=== PATIENT | male | born 1950 | race Caucasian/White ===

== ENCOUNTER 2019-06-14 13:01 | Outpatient (RCR) | payer MEDICARE, SELFPAY ==
[2019-04-12 13:07] LABS: Basophils Absolute Auto 0.1 K/mm3 (0.0-0.1); Basophils Percent Auto 1.1 % (0.2-1.2); Eosinophils Absolute Auto 0.6 K/mm3 (0-0.3); Hematocrit 36.6 % (42.0-52.0); Hemoglobin 11.3 g/dL (14.0-18.0); Immature Granulocyte Absolute 0.03 K/mm3 (0.00-0.031); Immature Granulocyte Percent A 0.4 % (0-0.5); Lymphocytes Absolute Auto 0.84 K/mm3 (0.9-3.2); Lymphocytes Percent Auto 9.8 % (18.3-44.2); Mean Corpuscular HGB Conc 30.9 g/dl (32-36); Mean Corpuscular Volume 93.8 fl (80-100); Mean Platelet Volume 9.4 fl (7.4-10.4); Monocytes Absolute Auto 0.9 K/mm3 (0.1-0.6); Monocytes Percent Auto 10.9 % (2.6-8.5); Neutrophils Percent Auto 70.8 % (45.5-73.1); Platelet Count Result 277 k/mm3 (150-375); Red Cell Distribution Width 14.8 % (11.5-14.5); White Blood Count 8.5 K/mm3 (4.5-10.0)
[2019-04-12 13:20] LABS: Alanine Aminotransferase 16 U/L (4-50); Albumin Level 4.1 g/dL (3.5-5.1); Alkaline Phosphatase 100 U/L (38-126); Aspartate Amino Transferase 20 U/L (17-59); Bilirubin,Total 0.3 mg/dL (0.2-1.3); Blood Urea Nitrogen 24 mg/dL (9-20); Calcium 9.1 mg/dL (8.4-10.2); Carbon Dioxide 26 mmol/L (22-30); Chloride 103 mmol/L (98-107); Estimated Glomerular Filt Rate 60; Glucose 170 mg/dL (75-110); INR 1.7; Lactate Dehydrogenase 676 U/L (313-618); Potassium 5.1 mmol/L (3.4-5.0); Prothrombin Time 19.1 Seconds (11.1-14.7); Sodium 138 mmol/L (137-145)
[2019-05-02 11:39] LABS: Basophils Absolute Auto 0.1 K/mm3 (0.0-0.1); Basophils Percent Auto 1.4 % (0.2-1.2); Eosinophils Absolute Auto 0.5 K/mm3 (0-0.3); Eosinophils Percent Auto 6.6 % (0-4.4); Hematocrit 38.5 % (42.0-52.0); Hemoglobin 11.7 g/dL (14.0-18.0); Immature Granulocyte Absolute 0.03 K/mm3 (0.00-0.031); Immature Granulocyte Percent A 0.4 % (0-0.5); Lymphocytes Absolute Auto 0.75 K/mm3 (0.9-3.2); Lymphocytes Percent Auto 10.1 % (18.3-44.2); Mean Corpuscular HGB Conc 30.4 g/dl (32-36); Mean Corpuscular Hemoglobin 27.9 pg (26-34); Mean Corpuscular Volume 91.7 fl (80-100); Mean Platelet Volume 9.9 fl (7.4-10.4); Monocytes Absolute Auto 0.8 K/mm3 (0.1-0.6); Monocytes Percent Auto 10.4 % (2.6-8.5); Neutrophils Absolute Auto 5.3 K/mm3 (1.3-6.7); Neutrophils Percent Auto 71.1 % (45.5-73.1); Platelet Count Result 297 k/mm3 (150-375); Red Cell Distribution Width 14.4 % (11.5-14.5); White Blood Count 7.4 K/mm3 (4.5-10.0)
[2019-05-02 11:49] LABS: INR 2.9; Prothrombin Time 30.1 Seconds (11.1-14.7)
[2019-05-02 11:58] LABS: Alanine Aminotransferase 15 U/L (4-50); Albumin Level 4.3 g/dL (3.5-5.1); Alkaline Phosphatase 103 U/L (38-126); Aspartate Amino Transferase 19 U/L (17-59); Bilirubin,Total 0.2 mg/dL (0.2-1.3); Blood Urea Nitrogen 44 mg/dL (9-20); Calcium 9.1 mg/dL (8.4-10.2); Carbon Dioxide 25 mmol/L (22-30); Chloride 102 mmol/L (98-107); Estimated Glomerular Filt Rate 37; Glucose 171 mg/dL (75-110); Lactate Dehydrogenase 629 U/L (313-618); Potassium 4.5 mmol/L (3.4-5.0); Sodium 140 mmol/L (137-145)
[2019-05-16 09:44] LABS: Alanine Aminotransferase 16 U/L (4-50); Albumin Level 4.1 g/dL (3.5-5.1); Alkaline Phosphatase 106 U/L (38-126); Aspartate Amino Transferase 24 U/L (17-59); Bilirubin,Total 0.2 mg/dL (0.2-1.3); Blood Urea Nitrogen 24 mg/dL (9-20); Calcium 9.4 mg/dL (8.4-10.2); Carbon Dioxide 25 mmol/L (22-30); Chloride 102 mmol/L (98-107); Estimated Glomerular Filt Rate 50; Glucose 198 mg/dL (75-110); Lactate Dehydrogenase 620 U/L (313-618); Potassium 4.8 mmol/L (3.4-5.0); Sodium 140 mmol/L (137-145)
[2019-05-16 09:47] LABS: Basophils Absolute Auto 0.1 K/mm3 (0.0-0.1); Eosinophils Absolute Auto 0.5 K/mm3 (0-0.3); Eosinophils Percent Auto 6.6 % (0-4.4); Hematocrit 36.3 % (42.0-52.0); Hemoglobin 11.3 g/dL (14.0-18.0); Immature Granulocyte Absolute 0.04 K/mm3 (0.00-0.031); Immature Granulocyte Percent A 0.5 % (0-0.5); Lymphocytes Absolute Auto 0.76 K/mm3 (0.9-3.2); Lymphocytes Percent Auto 9.5 % (18.3-44.2); Mean Corpuscular HGB Conc 31.1 g/dl (32-36); Mean Corpuscular Hemoglobin 28.4 pg (26-34); Mean Corpuscular Volume 91.2 fl (80-100); Mean Platelet Volume 9.8 fl (7.4-10.4); Monocytes Absolute Auto 0.7 K/mm3 (0.1-0.6); Neutrophils Absolute Auto 5.8 K/mm3 (1.3-6.7); Neutrophils Percent Auto 73.4 % (45.5-73.1); Platelet Count Result 271 k/mm3 (150-375); Red Blood Count 3.98 M/mm3 (4.6-6.20); Red Cell Distribution Width 14.6 % (11.5-14.5)
[2019-05-16 09:58] LABS: INR 2.7; Prothrombin Time 28.2 Seconds (11.1-14.7)
[2019-06-14 13:32] LABS: Basophils Absolute Auto 0.1 K/mm3 (0.0-0.1); Basophils Percent Auto 0.9 % (0.2-1.2); Eosinophils Absolute Auto 0.6 K/mm3 (0-0.3); Eosinophils Percent Auto 6.3 % (0-4.4); Hematocrit 36.7 % (42.0-52.0); Hemoglobin 11.7 g/dL (14.0-18.0); Immature Granulocyte Absolute 0.08 K/mm3 (0.00-0.031); Immature Granulocyte Percent A 0.9 % (0-0.5); Lymphocytes Absolute Auto 1.05 K/mm3 (0.9-3.2); Lymphocytes Percent Auto 12.1 % (18.3-44.2); Mean Corpuscular HGB Conc 31.9 g/dl (32-36); Mean Corpuscular Hemoglobin 28.5 pg (26-34); Mean Corpuscular Volume 89.3 fl (80-100); Mean Platelet Volume 9.7 fl (7.4-10.4); Monocytes Absolute Auto 0.8 K/mm3 (0.1-0.6); Neutrophils Absolute Auto 6.1 K/mm3 (1.3-6.7); Neutrophils Percent Auto 70.8 % (45.5-73.1); Platelet Count Result 277 k/mm3 (150-375); Red Blood Count 4.11 M/mm3 (4.6-6.20); White Blood Count 8.7 K/mm3 (4.5-10.0)
[2019-06-14 13:49] LABS: Alanine Aminotransferase 20 U/L (4-50); Albumin Level 4.2 g/dL (3.5-5.1); Alkaline Phosphatase 112 U/L (38-126); Aspartate Amino Transferase 24 U/L (17-59); Bilirubin,Total 0.3 mg/dL (0.2-1.3); Blood Urea Nitrogen 26 mg/dL (9-20); Calcium 8.9 mg/dL (8.4-10.2); Carbon Dioxide 25 mmol/L (22-30); Chloride 97 mmol/L (98-107); Estimated Glomerular Filt Rate 60; Glucose 234 mg/dL (75-110); Lactate Dehydrogenase 651 U/L (313-618); Sodium 133 mmol/L (137-145)
[2019-06-14 14:22] LABS: INR 1.9; Prothrombin Time 21.5 Seconds (11.1-14.7)
== END 2019-07-11 23:59 | disposition home or self-care (01) ==
LOC: ANHLAB 13:01
DX: Z95.811 Presence of heart assist device (principal); T82.7XXA Infection and inflammatory reaction due to other cardiac and vascular devices, implants and grafts, initial encounter; I50.42 Chronic combined systolic (congestive) and diastolic (congestive) heart failure; Z79.01 Long term (current) use of anticoagulants
CPT/HCPCS: 36415; 80053; 83615; 85025; 85610

== ENCOUNTER 2019-10-08 11:23 | Outpatient (RCR) | payer MEDICARE, SELFPAY ==
[2019-07-16 11:03] LABS: Basophils Absolute Auto 0.1 K/mm3 (0.0-0.1); Basophils Percent Auto 1.1 % (0.2-1.2); Eosinophils Absolute Auto 0.5 K/mm3 (0-0.3); Eosinophils Percent Auto 6.9 % (0-4.4); Hematocrit 38.8 % (42.0-52.0); Immature Granulocyte Absolute 0.05 K/mm3 (0.00-0.031); Immature Granulocyte Percent A 0.6 % (0-0.5); Lymphocytes Percent Auto 8.9 % (18.3-44.2); Mean Corpuscular HGB Conc 30.9 g/dl (32-36); Mean Corpuscular Volume 90.4 fl (80-100); Mean Platelet Volume 9.7 fl (7.4-10.4); Monocytes Absolute Auto 0.7 K/mm3 (0.1-0.6); Monocytes Percent Auto 8.3 % (2.6-8.5); Neutrophils Absolute Auto 5.8 K/mm3 (1.3-6.7); Neutrophils Percent Auto 74.2 % (45.5-73.1); Platelet Count Result 284 k/mm3 (150-375); Red Blood Count 4.29 M/mm3 (4.6-6.20); Red Cell Distribution Width 15.6 % (11.5-14.5); White Blood Count 7.8 K/mm3 (4.5-10.0)
[2019-07-16 11:17] LABS: Alanine Aminotransferase 17 U/L (4-50); Albumin Level 4.4 g/dL (3.5-5.1); Alkaline Phosphatase 107 U/L (38-126); Aspartate Amino Transferase 21 U/L (17-59); Bilirubin,Total 0.3 mg/dL (0.2-1.3); Blood Urea Nitrogen 15 mg/dL (9-20); Calcium 9.2 mg/dL (8.4-10.2); Carbon Dioxide 27 mmol/L (22-30); Chloride 100 mmol/L (98-107); Estimated Glomerular Filt Rate 55; Glucose 94 mg/dL (75-110); Lactate Dehydrogenase 712 U/L (313-618); Potassium 4.7 mmol/L (3.4-5.0); Sodium 140 mmol/L (137-145)
[2019-07-16 11:18] LABS: INR 4.1; Prothrombin Time 39.2 Seconds (11.1-14.7)
[2019-07-23 10:13] LABS: Basophils Absolute Auto 0.1 K/mm3 (0.0-0.1); Basophils Percent Auto 1.2 % (0.2-1.2); Eosinophils Absolute Auto 0.6 K/mm3 (0-0.3); Eosinophils Percent Auto 7.7 % (0-4.4); Hematocrit 38.6 % (42.0-52.0); Hemoglobin 12.1 g/dL (14.0-18.0); Immature Granulocyte Absolute 0.05 K/mm3 (0.00-0.031); Immature Granulocyte Percent A 0.6 % (0-0.5); Lymphocytes Absolute Auto 0.83 K/mm3 (0.9-3.2); Lymphocytes Percent Auto 10.7 % (18.3-44.2); Mean Corpuscular HGB Conc 31.3 g/dl (32-36); Mean Corpuscular Hemoglobin 27.8 pg (26-34); Mean Corpuscular Volume 88.5 fl (80-100); Mean Platelet Volume 9.2 fl (7.4-10.4); Monocytes Absolute Auto 0.6 K/mm3 (0.1-0.6); Monocytes Percent Auto 7.3 % (2.6-8.5); Neutrophils Absolute Auto 5.6 K/mm3 (1.3-6.7); Neutrophils Percent Auto 72.5 % (45.5-73.1); Platelet Count Result 272 k/mm3 (150-375); Red Blood Count 4.36 M/mm3 (4.6-6.20); Red Cell Distribution Width 15.3 % (11.5-14.5); White Blood Count 7.8 K/mm3 (4.5-10.0)
[2019-07-23 10:21] LABS: INR 2.5; Prothrombin Time 26.9 Seconds (11.1-14.7)
[2019-07-23 10:38] LABS: Alanine Aminotransferase 15 U/L (4-50); Albumin Level 4.2 g/dL (3.5-5.1); Alkaline Phosphatase 98 U/L (38-126); Aspartate Amino Transferase 22 U/L (17-59); Bilirubin,Total 0.4 mg/dL (0.2-1.3); Blood Urea Nitrogen 16 mg/dL (9-20); Calcium 9.1 mg/dL (8.4-10.2); Carbon Dioxide 26 mmol/L (22-30); Chloride 101 mmol/L (98-107); Estimated Glomerular Filt Rate 55; Glucose 173 mg/dL (75-110); Potassium 4.8 mmol/L (3.4-5.0); Sodium 137 mmol/L (137-145)
[2019-07-23 10:49] LABS: Lactate Dehydrogenase 647 U/L (313-618)
[2019-08-13 12:31] LABS: Basophils Absolute Auto 0.1 K/mm3 (0.0-0.1); Basophils Percent Auto 1.5 % (0.2-1.2); Eosinophils Absolute Auto 0.7 K/mm3 (0-0.3); Eosinophils Percent Auto 9.4 % (0-4.4); Hematocrit 37.1 % (42.0-52.0); Hemoglobin 11.7 g/dL (14.0-18.0); Immature Granulocyte Absolute 0.05 K/mm3 (0.00-0.031); Immature Granulocyte Percent A 0.7 % (0-0.5); Lymphocytes Absolute Auto 0.79 K/mm3 (0.9-3.2); Lymphocytes Percent Auto 10.8 % (18.3-44.2); Mean Corpuscular HGB Conc 31.5 g/dl (32-36); Mean Corpuscular Hemoglobin 28.7 pg (26-34); Mean Corpuscular Volume 90.9 fl (80-100); Monocytes Absolute Auto 0.6 K/mm3 (0.1-0.6); Monocytes Percent Auto 7.9 % (2.6-8.5); Neutrophils Absolute Auto 5.1 K/mm3 (1.3-6.7); Neutrophils Percent Auto 69.7 % (45.5-73.1); Platelet Count Result 258 k/mm3 (150-375); Red Blood Count 4.08 M/mm3 (4.6-6.20); Red Cell Distribution Width 15.5 % (11.5-14.5); White Blood Count 7.3 K/mm3 (4.5-10.0)
[2019-08-13 12:43] LABS: Alanine Aminotransferase 17 U/L (4-50); Albumin Level 4.2 g/dL (3.5-5.1); Alkaline Phosphatase 99 U/L (38-126); Aspartate Amino Transferase 21 U/L (17-59); Bilirubin,Total 0.3 mg/dL (0.2-1.3); Blood Urea Nitrogen 28 mg/dL (9-20); Calcium 8.8 mg/dL (8.4-10.2); Carbon Dioxide 25 mmol/L (22-30); Chloride 102 mmol/L (98-107); Estimated Glomerular Filt Rate 50; Glucose 251 mg/dL (75-110); Sodium 138 mmol/L (137-145)
[2019-08-13 12:44] LABS: INR 2.6; Prothrombin Time 27.3 Seconds (11.1-14.7)
[2019-08-31 12:07] LABS: Basophils Absolute Auto 0.1 K/mm3 (0.0-0.1); Basophils Percent Auto 1.2 % (0.2-1.2); Eosinophils Absolute Auto 0.5 K/mm3 (0-0.3); Eosinophils Percent Auto 7.6 % (0-4.4); Hemoglobin 11.6 g/dL (14.0-18.0); Immature Granulocyte Absolute 0.04 K/mm3 (0.00-0.031); Immature Granulocyte Percent A 0.6 % (0-0.5); Lymphocytes Absolute Auto 0.65 K/mm3 (0.9-3.2); Lymphocytes Percent Auto 9.7 % (18.3-44.2); Mean Corpuscular HGB Conc 31.4 g/dl (32-36); Mean Corpuscular Hemoglobin 28.9 pg (26-34); Mean Platelet Volume 9.9 fl (7.4-10.4); Monocytes Absolute Auto 0.5 K/mm3 (0.1-0.6); Monocytes Percent Auto 7.9 % (2.6-8.5); Neutrophils Absolute Auto 4.9 K/mm3 (1.3-6.7); Platelet Count Result 236 k/mm3 (150-375); Red Blood Count 4.02 M/mm3 (4.6-6.20); Red Cell Distribution Width 15.3 % (11.5-14.5); White Blood Count 6.7 K/mm3 (4.5-10.0)
[2019-08-31 12:17] LABS: Prothrombin Time 30.8 Seconds (11.1-14.7)
[2019-08-31 12:22] LABS: Alanine Aminotransferase 15 U/L (4-50); Albumin Level 4.1 g/dL (3.5-5.1); Alkaline Phosphatase 120 U/L (38-126); Aspartate Amino Transferase 21 U/L (17-59); Bilirubin,Total 0.2 mg/dL (0.2-1.3); Blood Urea Nitrogen 27 mg/dL (9-20); Calcium 8.6 mg/dL (8.4-10.2); Carbon Dioxide 24 mmol/L (22-30); Chloride 102 mmol/L (98-107); Estimated Glomerular Filt Rate 50; Glucose 279 mg/dL (75-110); Lactate Dehydrogenase 624 U/L (313-618); Potassium 4.9 mmol/L (3.4-5.0); Sodium 135 mmol/L (137-145)
[2019-09-26 11:37] LABS: Basophils Absolute Auto 0.1 K/mm3 (0.0-0.1); Basophils Percent Auto 1.4 % (0.2-1.2); Eosinophils Absolute Auto 0.5 K/mm3 (0-0.3); Eosinophils Percent Auto 6.8 % (0-4.4); Hematocrit 36.9 % (42.0-52.0); Hemoglobin 11.7 g/dL (14.0-18.0); Immature Granulocyte Absolute 0.05 K/mm3 (0.00-0.031); Immature Granulocyte Percent A 0.7 % (0-0.5); Lymphocytes Absolute Auto 0.78 K/mm3 (0.9-3.2); Mean Corpuscular HGB Conc 31.7 g/dl (32-36); Mean Corpuscular Hemoglobin 28.8 pg (26-34); Mean Corpuscular Volume 90.9 fl (80-100); Mean Platelet Volume 9.5 fl (7.4-10.4); Monocytes Absolute Auto 0.7 K/mm3 (0.1-0.6); Monocytes Percent Auto 9.8 % (2.6-8.5); Neutrophils Percent Auto 70.3 % (45.5-73.1); Platelet Count Result 254 k/mm3 (150-375); Red Blood Count 4.06 M/mm3 (4.6-6.20); Red Cell Distribution Width 14.6 % (11.5-14.5); White Blood Count 7.1 K/mm3 (4.5-10.0)
[2019-09-26 11:49] LABS: INR 3.8; Prothrombin Time 36.8 Seconds (11.1-14.7)
[2019-09-26 11:51] LABS: Alanine Aminotransferase 15 U/L (4-50); Albumin Level 4.1 g/dL (3.5-5.1); Alkaline Phosphatase 99 U/L (38-126); Aspartate Amino Transferase 19 U/L (17-59); Bilirubin,Total 0.3 mg/dL (0.2-1.3); Blood Urea Nitrogen 26 mg/dL (9-20); Calcium 8.7 mg/dL (8.4-10.2); Carbon Dioxide 24 mmol/L (22-30); Chloride 104 mmol/L (98-107); Estimated Glomerular Filt Rate 46; Glucose 171 mg/dL (75-110); Lactate Dehydrogenase 635 U/L (313-618); Sodium 137 mmol/L (137-145)
[2019-10-08 11:55] LABS: INR 3.1; Prothrombin Time 31.1 Seconds (11.1-14.7)
== END 2019-10-14 23:59 | disposition home or self-care (01) ==
LOC: ANHLAB 11:23
DX: I50.42 Chronic combined systolic (congestive) and diastolic (congestive) heart failure (principal); T82.7XXD Infection and inflammatory reaction due to other cardiac and vascular devices, implants and grafts, subsequent encounter; Z79.01 Long term (current) use of anticoagulants; Z95.811 Presence of heart assist device
CPT/HCPCS: 36415; 80053; 83615; 85025; 85610

== ENCOUNTER 2019-11-14 11:10 | Outpatient (CLI) | payer MEDICARE, SELFPAY ==
--- NOTE | ~2019-11-14 | XR_ITS ---
EXAMINATION: XR knee LT min 4V, XR knee RT min 4V DATE: 11/14/2019 11:29 INDICATION: Bilateral knee pain TECHNIQUE: 1. Weight bearing anteroposterior and [place], sunrise, and flexed lateral views of the left knee w ere obtained 2. Weight bearing anteroposterior and [place], sunrise, and flexed lateral views of the right knee were obtained. COMPARISON: None. FINDINGS: Alignment is normal at both knees. No fracture. 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 At the right knee there i s moderate to severe joint space narrowing in the lateral aspect of the patellofemoral compartment an d at the medial compartment, the bladder better appreciated on the lateral image with the knee in a m ildly flexed position. Relatively preserved joint space and the lateral compartment of the right knee . At the left knee there is mild to moderate joint space narrowing in the lateral compartment and mil d joint space narrowing in the patellofemoral compartment. In addition to the small marginal osteophy brendan there is suggestion of likely high-grade chondromalacia with small central subchondral osteophyte s at the bilateral patellofemoral compartments and along the weightbearing left medial femoral condyl e. No joint effusion at either knee. Extensive scattered vascular calcifications at the left and righ t distal thighs and proximal calves. IMPRESSION: 1. 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 Reviewed, dictated and finalized at location D. IMPRESSION: 1. 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
== END 2019-11-14 11:11 | disposition home or self-care (01) ==
PROVIDERS: Visit Provider Internal Medicine Rheumatology
DX: M17.0 Bilateral primary osteoarthritis of knee (principal)
CPT/HCPCS: 73564

== ENCOUNTER 2020-01-08 10:06 | Outpatient (RCR) | payer MEDICARE, SELFPAY ==
[2019-10-29 10:27] LABS: Basophils Absolute Auto 0.1 K/mm3 (0.0-0.1); Basophils Percent Auto 1.3 % (0.2-1.2); Eosinophils Absolute Auto 0.7 K/mm3 (0-0.3); Eosinophils Percent Auto 10.2 % (0-4.4); Hematocrit 35.4 % (42.0-52.0); Immature Granulocyte Absolute 0.06 K/mm3 (0.00-0.031); Immature Granulocyte Percent A 0.8 % (0-0.5); Mean Corpuscular HGB Conc 31.1 g/dl (32-36); Mean Corpuscular Hemoglobin 28.6 pg (26-34); Mean Corpuscular Volume 91.9 fl (80-100); Mean Platelet Volume 9.7 fl (7.4-10.4); Monocytes Absolute Auto 0.9 K/mm3 (0.1-0.6); Neutrophils Absolute Auto 4.4 K/mm3 (1.3-6.7); Neutrophils Percent Auto 61.7 % (45.5-73.1); Platelet Count Result 262 k/mm3 (150-375); Red Blood Count 3.85 M/mm3 (4.6-6.20); Red Cell Distribution Width 14.8 % (11.5-14.5); White Blood Count 7.1 K/mm3 (4.5-10.0)
[2019-10-29 10:35] LABS: INR 3.4; Prothrombin Time 33.5 Seconds (11.1-14.7)
[2019-10-29 10:40] LABS: Alanine Aminotransferase 15 U/L (4-50); Albumin Level 4.2 g/dL (3.5-5.1); Alkaline Phosphatase 90 U/L (38-126); Aspartate Amino Transferase 23 U/L (17-59); Bilirubin,Total 0.3 mg/dL (0.2-1.3); Blood Urea Nitrogen 26 mg/dL (9-20); Calcium 8.7 mg/dL (8.4-10.2); Carbon Dioxide 29 mmol/L (22-30); Chloride 103 mmol/L (98-107); Estimated Glomerular Filt Rate 43; Glucose 107 mg/dL (75-110); Potassium 4.7 mmol/L (3.4-5.0); Sodium 140 mmol/L (137-145)
[2019-10-29 11:15] LABS: Lactate Dehydrogenase 651 U/L (313-618)
[2019-11-08 10:36] LABS: Basophils Absolute Auto 0.1 K/mm3 (0.0-0.1); Basophils Percent Auto 1.1 % (0.2-1.2); Eosinophils Absolute Auto 0.7 K/mm3 (0-0.3); Eosinophils Percent Auto 9.8 % (0-4.4); Hemoglobin 11.8 g/dL (14.0-18.0); Immature Granulocyte Absolute 0.04 K/mm3 (0.00-0.031); Immature Granulocyte Percent A 0.5 % (0-0.5); Lymphocytes Absolute Auto 0.62 K/mm3 (0.9-3.2); Lymphocytes Percent Auto 8.4 % (18.3-44.2); Mean Corpuscular HGB Conc 31.1 g/dl (32-36); Mean Corpuscular Hemoglobin 28.6 pg (26-34); Mean Corpuscular Volume 92.2 fl (80-100); Monocytes Absolute Auto 0.6 K/mm3 (0.1-0.6); Monocytes Percent Auto 7.9 % (2.6-8.5); Neutrophils Absolute Auto 5.3 K/mm3 (1.3-6.7); Neutrophils Percent Auto 72.3 % (45.5-73.1); Platelet Count Result 277 k/mm3 (150-375); Red Blood Count 4.12 M/mm3 (4.6-6.20); Red Cell Distribution Width 14.7 % (11.5-14.5); White Blood Count 7.3 K/mm3 (4.5-10.0)
[2019-11-08 10:48] LABS: INR 2.1; Prothrombin Time 22.9 Seconds (11.1-14.7)
[2019-11-08 10:50] LABS: Alanine Aminotransferase 14 U/L (4-50); Albumin Level 4.3 g/dL (3.5-5.1); Alkaline Phosphatase 110 U/L (38-126); Aspartate Amino Transferase 20 U/L (17-59); Bilirubin,Total 0.2 mg/dL (0.2-1.3); Blood Urea Nitrogen 33 mg/dL (9-20); Calcium 8.8 mg/dL (8.4-10.2); Carbon Dioxide 28 mmol/L (22-30); Chloride 101 mmol/L (98-107); Estimated Glomerular Filt Rate 43; Glucose 172 mg/dL (75-110); Lactate Dehydrogenase 643 U/L (313-618); Potassium 4.6 mmol/L (3.4-5.0); Sodium 134 mmol/L (137-145)
[2019-12-11 09:29] LABS: Basophils Absolute Auto 0.1 K/mm3 (0.0-0.1); Basophils Percent Auto 1.2 % (0.2-1.2); Eosinophils Absolute Auto 0.6 K/mm3 (0-0.3); Eosinophils Percent Auto 8.6 % (0-4.4); Hematocrit 36.5 % (42.0-52.0); Hemoglobin 11.5 g/dL (14.0-18.0); Immature Granulocyte Absolute 0.08 K/mm3 (0.00-0.031); Immature Granulocyte Percent A 1.2 % (0-0.5); Lymphocytes Absolute Auto 0.93 K/mm3 (0.9-3.2); Lymphocytes Percent Auto 14.5 % (18.3-44.2); Mean Corpuscular HGB Conc 31.5 g/dl (32-36); Mean Corpuscular Hemoglobin 28.8 pg (26-34); Mean Corpuscular Volume 91.3 fl (80-100); Mean Platelet Volume 9.5 fl (7.4-10.4); Monocytes Absolute Auto 0.6 K/mm3 (0.1-0.6); Monocytes Percent Auto 9.3 % (2.6-8.5); Neutrophils Absolute Auto 4.2 K/mm3 (1.3-6.7); Neutrophils Percent Auto 65.2 % (45.5-73.1); Platelet Count Result 231 k/mm3 (150-375); Red Cell Distribution Width 14.6 % (11.5-14.5); White Blood Count 6.4 K/mm3 (4.5-10.0)
[2019-12-11 09:35] LABS: Alanine Aminotransferase 16 U/L (4-50); Alkaline Phosphatase 111 U/L (38-126); Aspartate Amino Transferase 23 U/L (17-59); Bilirubin,Total 0.2 mg/dL (0.2-1.3); Blood Urea Nitrogen 22 mg/dL (9-20); Carbon Dioxide 27 mmol/L (22-30); Chloride 105 mmol/L (98-107); Estimated Glomerular Filt Rate 50; Glucose 194 mg/dL (75-110); Lactate Dehydrogenase 588 U/L (313-618); Potassium 4.9 mmol/L (3.4-5.0); Sodium 139 mmol/L (137-145)
[2019-12-11 09:38] LABS: INR 2.7
[2020-01-08 10:27] LABS: Basophils Absolute Auto 0.1 K/mm3 (0.0-0.1); Basophils Percent Auto 0.7 % (0.2-1.2); Eosinophils Absolute Auto 0.2 K/mm3 (0-0.3); Eosinophils Percent Auto 1.9 % (0-4.4); Hematocrit 41.1 % (42.0-52.0); Hemoglobin 13.3 g/dL (14.0-18.0); Immature Granulocyte Absolute 0.28 K/mm3 (0.00-0.031); Lymphocytes Absolute Auto 1.24 K/mm3 (0.9-3.2); Lymphocytes Percent Auto 13.1 % (18.3-44.2); Mean Corpuscular HGB Conc 32.4 g/dl (32-36); Mean Corpuscular Hemoglobin 29.2 pg (26-34); Mean Corpuscular Volume 90.1 fl (80-100); Mean Platelet Volume 9.9 fl (7.4-10.4); Monocytes Percent Auto 10.1 % (2.6-8.5); Neutrophils Absolute Auto 6.8 K/mm3 (1.3-6.7); Neutrophils Percent Auto 71.2 % (45.5-73.1); Platelet Count Result 257 k/mm3 (150-375); Red Blood Count 4.56 M/mm3 (4.6-6.20); Red Cell Distribution Width 15.5 % (11.5-14.5); White Blood Count 9.5 K/mm3 (4.5-10.0)
[2020-01-08 10:37] LABS: INR 2.3; Prothrombin Time 24.4 Seconds (11.1-14.7)
[2020-01-08 10:54] LABS: Alanine Aminotransferase 21 U/L (4-50); Albumin Level 4.1 g/dL (3.5-5.1); Alkaline Phosphatase 86 U/L (38-126); Anion Gap 10 mmol/L (8-16); Aspartate Amino Transferase 22 U/L (17-59); Bilirubin,Total 0.3 mg/dL (0.2-1.3); Blood Urea Nitrogen 33 mg/dL (9-20); Calcium 8.6 mg/dL (8.4-10.2); Carbon Dioxide 23 mmol/L (22-30); Chloride 101 mmol/L (98-107); Estimated Glomerular Filt Rate 50; Glucose 261 mg/dL (75-110); Lactate Dehydrogenase 591 U/L (313-618); Potassium 5.1 mmol/L (3.4-5.0); Sodium 134 mmol/L (137-145)
== END 2020-01-27 23:59 | disposition home or self-care (01) ==
LOC: ANHLAB 10:06
DX: Z51.81 Encounter for therapeutic drug level monitoring (principal); Z95.811 Presence of heart assist device; Z79.01 Long term (current) use of anticoagulants
CPT/HCPCS: 36415; 80053; 82728; 83615; 85025; 85610

== ENCOUNTER 2020-02-19 09:57 | Outpatient (CLI) | payer MEDICARE, SELFPAY ==
[2020-02-19 11:10] LABS: CRP < 0.5 mg/dL (<1.0)
[2020-02-19 11:13] LABS: Erythrocyte Sedimentation Rate 13 mm/hr (0-20)
[2020-02-19 11:33] LABS: Vitamin D 25 Hydroxy 28.6 ng/mL
[2020-02-21 21:36] LABS: NIL 0.01 IU/mL; Quantiferon TB Plus, 1T NEGATIVE (NEGATIVE)
== END 2020-02-19 09:58 | disposition home or self-care (01) ==
LOC: ANHLAB 10:07
PROVIDERS: PCP Nurse Practitioner; Visit Provider Registered Nurse
DX: L40.59 Other psoriatic arthropathy (principal); Z79.899 Other long term (current) drug therapy
CPT/HCPCS: 36415; 80053; 82306; 83615; 85025; 85610; 85652; 86140; 86480

== ENCOUNTER 2020-03-24 10:28 | Outpatient (CLI) | payer MEDICARE, SELFPAY ==
[2020-03-24 11:34] LABS: Erythrocyte Sedimentation Rate 51 mm/hr (0-20)
== END 2020-03-24 10:29 | disposition home or self-care (01) ==
PROVIDERS: PCP Nurse Practitioner; Visit Provider Nurse Practitioner
DX: R51.9 Headache, unspecified (principal)
CPT/HCPCS: 36415; 85652

== ENCOUNTER 2020-03-31 10:45 | Outpatient (RCR) | payer MEDICARE, SELFPAY ==
[2020-02-12 11:24] LABS: INR 1.4; Prothrombin Time 16.6 Seconds (11.1-14.7)
[2020-02-19 10:53] LABS: Basophils Percent Auto 0.2 % (0.2-1.2); Eosinophils Absolute Auto 0.3 K/mm3 (0-0.3); Eosinophils Percent Auto 2.6 % (0-4.4); Hematocrit 43.9 % (42.0-52.0); Hemoglobin 14.4 g/dL (14.0-18.0); Immature Granulocyte Absolute 0.53 K/mm3 (0.00-0.031); Immature Granulocyte Percent A 5.2 % (0-0.5); Lymphocytes Absolute Auto 1.43 K/mm3 (0.9-3.2); Lymphocytes Percent Auto 14.1 % (18.3-44.2); Mean Corpuscular HGB Conc 32.8 g/dl (32-36); Mean Corpuscular Hemoglobin 29.8 pg (26-34); Mean Corpuscular Volume 90.7 fl (80-100); Mean Platelet Volume 10.1 fl (7.4-10.4); Monocytes Absolute Auto 1.1 K/mm3 (0.1-0.6); Monocytes Percent Auto 10.8 % (2.6-8.5); Neutrophils Absolute Auto 6.8 K/mm3 (1.3-6.7); Neutrophils Percent Auto 67.1 % (45.5-73.1); Platelet Count Result 274 k/mm3 (150-375); Red Blood Count 4.84 M/mm3 (4.6-6.20); Red Cell Distribution Width 15.6 % (11.5-14.5); White Blood Count 10.2 K/mm3 (4.5-10.0)
[2020-02-19 11:01] LABS: INR 1.8; Prothrombin Time 20.2 Seconds (11.1-14.7)
[2020-02-19 11:04] LABS: Alanine Aminotransferase 23 U/L (4-50); Alkaline Phosphatase 83 U/L (38-126); Anion Gap 7 mmol/L (8-16); Aspartate Amino Transferase 24 U/L (17-59); Bilirubin,Total 0.5 mg/dL (0.2-1.3); Blood Urea Nitrogen 33 mg/dL (9-20); Calcium 9.1 mg/dL (8.4-10.2); Carbon Dioxide 24 mmol/L (22-30); Chloride 106 mmol/L (98-107); Estimated Glomerular Filt Rate 50; Glucose 88 mg/dL (75-110); Lactate Dehydrogenase 718 U/L (313-618); Potassium 4.4 mmol/L (3.4-5.0); Sodium 137 mmol/L (137-145)
[2020-03-31 11:56] LABS: INR 2.6; Prothrombin Time 28.3 Seconds (11.1-14.7)
== END 2020-05-12 23:59 | disposition home or self-care (01) ==
LOC: ANHLAB 10:45
DX: Z51.81 Encounter for therapeutic drug level monitoring (principal); Z95.811 Presence of heart assist device; Z79.01 Long term (current) use of anticoagulants
CPT/HCPCS: 36415; 80053; 83615; 85025; 85610

== ENCOUNTER 2020-06-30 10:58 | Outpatient (CLI) | payer MEDICARE, SELFPAY ==
--- NOTE | ~2020-06-30 | XR_ITS ---
XR chest 2V DATE: 06/30/2020 12:24 INDICATION: Chronic cough. History of benign spot on lung. TECHNIQUE: PA and lateral views COMPARISON: 09/04/2018 2 view chest FINDINGS: Status post sternotomy. Left ventricle assist device is noted. Left triple lead pacemaker device. No pulmonary infiltrate or consolidation, pleural effusion or pulmonary vascular congestion or pneumo thorax. IMPRESSION: No significant change since 09/04/2018 Reviewed, dictated and finalized at location A. D LOGISTICS COORDINATOR
[2020-06-30 12:24] LABS: Basophils Absolute Auto 0.1 K/mm3 (0.0-0.1); Basophils Percent Auto 0.9 % (0.2-1.2); Eosinophils Absolute Auto 0.5 K/mm3 (0-0.3); Eosinophils Percent Auto 5.8 % (0-4.4); Hematocrit 42.3 % (42.0-52.0); Hemoglobin 13.6 g/dL (14.0-18.0); Immature Granulocyte Absolute 0.04 K/mm3 (0.00-0.031); Immature Granulocyte Percent A 0.5 % (0-0.5); Lymphocytes Absolute Auto 0.75 K/mm3 (0.9-3.2); Lymphocytes Percent Auto 9.3 % (18.3-44.2); Mean Corpuscular HGB Conc 32.2 g/dl (32-36); Mean Corpuscular Hemoglobin 30.6 pg (26-34); Mean Corpuscular Volume 95.1 fl (80-100); Mean Platelet Volume 9.7 fl (7.4-10.4); Monocytes Absolute Auto 0.8 K/mm3 (0.1-0.6); Monocytes Percent Auto 10.4 % (2.6-8.5); Neutrophils Absolute Auto 5.9 K/mm3 (1.3-6.7); Neutrophils Percent Auto 73.1 % (45.5-73.1); Platelet Count Result 236 k/mm3 (150-375); Red Blood Count 4.45 M/mm3 (4.6-6.20); Red Cell Distribution Width 13.7 % (11.5-14.5); White Blood Count 8.1 K/mm3 (4.5-10.0)
[2020-06-30 12:39] LABS: Hemoglobin A1C 7.5 % (<5.7)
[2020-06-30 12:39] LABS: Alanine Aminotransferase 21 U/L (4-50); Albumin Level 4.2 g/dL (3.5-5.1); Alkaline Phosphatase 102 U/L (38-126); Anion Gap 8 mmol/L (8-16); Aspartate Amino Transferase 28 U/L (17-59); Bilirubin,Total 0.4 mg/dL (0.2-1.3); Blood Urea Nitrogen 24 mg/dL (9-20); Calcium 8.9 mg/dL (8.4-10.2); Carbon Dioxide 24 mmol/L (22-30); Chloride 106 mmol/L (98-107); Cholesterol 97 mg/dL (0-200); Estimated Glomerular Filt Rate 50; Glucose 245 mg/dL (75-110); HDL Direct 39 mg/dL; Potassium 4.9 mmol/L (3.4-5.0); Sodium 138 mmol/L (137-145); Triglycerides 137 mg/dL (<150)
[2020-06-30 12:50] LABS: LDL Cholesterol Direct 37 mg/dL
[2020-06-30 12:51] LABS: Creatinine Urine 85.8 mg/dL
[2020-06-30 12:54] LABS: MALB Creatinine Ratio 13.3 mg/g (0-30); Microalbumin Urine Random 11.4 mg/L (0-16.7)
[2020-06-30 13:00] LABS: Iron 69 ug/dL (49-181)
[2020-06-30 13:10] LABS: Percent Iron Saturation 19 % (20-50)
[2020-06-30 13:16] LABS: Vitamin D 25 Hydroxy 26.8 ng/mL
[2020-06-30 13:45] LABS: Folic Acid 12.7 ng/mL (2.76->20)
[2020-06-30 16:11] LABS: Hepatitis C Virus Antibody Negative (Negative)
[2020-07-04 21:36] LABS: PSA, Free 0.09 ng/mL; PSA, Total 0.1 ng/mL (<=4.0)
== END 2020-06-30 10:59 | disposition home or self-care (01) ==
PROVIDERS: PCP Nurse Practitioner; Visit Provider Nurse Practitioner
DX: Z12.5 Encounter for screening for malignant neoplasm of prostate (principal); D50.9 Iron deficiency anemia, unspecified; E11.9 Type 2 diabetes mellitus without complications; Z51.81 Encounter for therapeutic drug level monitoring; Z79.4 Long term (current) use of insulin; E78.5 Hyperlipidemia, unspecified; E55.9 Vitamin D deficiency, unspecified; E03.9 Hypothyroidism, unspecified; Z11.59 Encounter for screening for other viral diseases; R05 Cough
CPT/HCPCS: 36415; 71046; 80053; 80061; 82043; 82306; 82607; 82728; 82746; 83036; 83540; 83550; 83615; 84153; 84154; 84443; 85025; 85610; 86803; G0103

== ENCOUNTER 2020-08-25 10:47 | Outpatient (RCR) | payer MEDICARE, SELFPAY ==
[2020-06-02 12:05] LABS: Basophils Percent Auto 0.6 % (0.2-1.2); Eosinophils Absolute Auto 0.5 K/mm3 (0-0.3); Eosinophils Percent Auto 6.9 % (0-4.4); Hematocrit 41.8 % (42.0-52.0); Hemoglobin 13.7 g/dL (14.0-18.0); Immature Granulocyte Absolute 0.06 K/mm3 (0.00-0.031); Immature Granulocyte Percent A 0.8 % (0-0.5); Lymphocytes Absolute Auto 0.79 K/mm3 (0.9-3.2); Lymphocytes Percent Auto 10.9 % (18.3-44.2); Mean Corpuscular HGB Conc 32.8 g/dl (32-36); Mean Corpuscular Hemoglobin 31.3 pg (26-34); Mean Corpuscular Volume 95.4 fl (80-100); Mean Platelet Volume 9.7 fl (7.4-10.4); Monocytes Absolute Auto 0.7 K/mm3 (0.1-0.6); Monocytes Percent Auto 10.2 % (2.6-8.5); Neutrophils Absolute Auto 5.1 K/mm3 (1.3-6.7); Neutrophils Percent Auto 70.6 % (45.5-73.1); Platelet Count Result 215 k/mm3 (150-375); Red Blood Count 4.38 M/mm3 (4.6-6.20); Red Cell Distribution Width 13.4 % (11.5-14.5); White Blood Count 7.3 K/mm3 (4.5-10.0)
[2020-06-02 12:17] LABS: INR 3.4; Prothrombin Time 34.4 Seconds (11.1-14.7)
[2020-06-02 12:31] LABS: Alanine Aminotransferase 25 U/L (4-50); Alkaline Phosphatase 98 U/L (38-126); Anion Gap 5 mmol/L (8-16); Aspartate Amino Transferase 28 U/L (17-59); Bilirubin,Total 0.3 mg/dL (0.2-1.3); Blood Urea Nitrogen 19 mg/dL (9-20); Calcium 8.8 mg/dL (8.4-10.2); Carbon Dioxide 28 mmol/L (22-30); Chloride 101 mmol/L (98-107); Estimated Glomerular Filt Rate 54; Glucose 216 mg/dL (75-110); Lactate Dehydrogenase 625 U/L (313-618); Potassium 5.1 mmol/L (3.4-5.0); Sodium 134 mmol/L (137-145)
[2020-06-30 12:37] LABS: Lactate Dehydrogenase 644 U/L (313-618)
[2020-06-30 12:47] LABS: INR 1.7; Prothrombin Time 20.9 Seconds (11.1-14.7)
[2020-07-16 11:17] LABS: Basophils Absolute Auto 0.1 K/mm3 (0.0-0.1); Basophils Percent Auto 1.2 % (0.2-1.2); Eosinophils Absolute Auto 0.6 K/mm3 (0-0.3); Eosinophils Percent Auto 6.7 % (0-4.4); Hematocrit 43.1 % (42.0-52.0); Hemoglobin 14.1 g/dL (14.0-18.0); Immature Granulocyte Absolute 0.08 K/mm3 (0.00-0.031); Lymphocytes Absolute Auto 0.87 K/mm3 (0.9-3.2); Lymphocytes Percent Auto 10.5 % (18.3-44.2); Mean Corpuscular HGB Conc 32.7 g/dl (32-36); Mean Corpuscular Hemoglobin 30.7 pg (26-34); Mean Corpuscular Volume 93.9 fl (80-100); Mean Platelet Volume 9.7 fl (7.4-10.4); Monocytes Absolute Auto 0.8 K/mm3 (0.1-0.6); Monocytes Percent Auto 9.2 % (2.6-8.5); Neutrophils Absolute Auto 5.9 K/mm3 (1.3-6.7); Neutrophils Percent Auto 71.4 % (45.5-73.1); Platelet Count Result 271 k/mm3 (150-375); Red Blood Count 4.59 M/mm3 (4.6-6.20); Red Cell Distribution Width 13.6 % (11.5-14.5); White Blood Count 8.3 K/mm3 (4.5-10.0)
[2020-07-16 11:26] LABS: INR 2.2; Prothrombin Time 24.9 Seconds (11.1-14.7)
[2020-07-16 11:28] LABS: Alanine Aminotransferase 23 U/L (4-50); Albumin Level 4.4 g/dL (3.5-5.1); Alkaline Phosphatase 89 U/L (38-126); Anion Gap 9 mmol/L (8-16); Aspartate Amino Transferase 30 U/L (17-59); Bilirubin,Total 0.4 mg/dL (0.2-1.3); Blood Urea Nitrogen 39 mg/dL (9-20); Calcium 9.5 mg/dL (8.4-10.2); Carbon Dioxide 29 mmol/L (22-30); Chloride 100 mmol/L (98-107); Estimated Glomerular Filt Rate 37; Glucose 113 mg/dL (75-110); Lactate Dehydrogenase 631 U/L (313-618); Potassium 4.4 mmol/L (3.4-5.0); Sodium 138 mmol/L (137-145)
[2020-08-25 11:01] LABS: Basophils Absolute Auto 0.1 K/mm3 (0.0-0.1); Basophils Percent Auto 1.2 % (0.2-1.2); Eosinophils Absolute Auto 0.6 K/mm3 (0-0.3); Eosinophils Percent Auto 7.6 % (0-4.4); Hematocrit 42.1 % (42.0-52.0); Hemoglobin 13.5 g/dL (14.0-18.0); Immature Granulocyte Absolute 0.06 K/mm3 (0.00-0.031); Immature Granulocyte Percent A 0.7 % (0-0.5); Lymphocytes Absolute Auto 0.78 K/mm3 (0.9-3.2); Lymphocytes Percent Auto 9.6 % (18.3-44.2); Mean Corpuscular HGB Conc 32.1 g/dl (32-36); Mean Corpuscular Hemoglobin 30.5 pg (26-34); Mean Platelet Volume 9.4 fl (7.4-10.4); Monocytes Absolute Auto 0.7 K/mm3 (0.1-0.6); Monocytes Percent Auto 8.8 % (2.6-8.5); Neutrophils Absolute Auto 5.9 K/mm3 (1.3-6.7); Neutrophils Percent Auto 72.1 % (45.5-73.1); Platelet Count Result 258 k/mm3 (150-375); Red Blood Count 4.43 M/mm3 (4.6-6.20); Red Cell Distribution Width 14.2 % (11.5-14.5); White Blood Count 8.2 K/mm3 (4.5-10.0)
[2020-08-25 11:12] LABS: Alanine Aminotransferase 20 U/L (4-50); Albumin Level 4.5 g/dL (3.5-5.1); Alkaline Phosphatase 112 U/L (38-126); Anion Gap 7 mmol/L (8-16); Aspartate Amino Transferase 27 U/L (17-59); Bilirubin,Total 0.3 mg/dL (0.2-1.3); Blood Urea Nitrogen 24 mg/dL (9-20); Calcium 9.4 mg/dL (8.4-10.2); Carbon Dioxide 28 mmol/L (22-30); Chloride 104 mmol/L (98-107); Estimated Glomerular Filt Rate 54; Glucose 154 mg/dL (75-110); Lactate Dehydrogenase 591 U/L (313-618); Potassium 4.7 mmol/L (3.4-5.0); Sodium 139 mmol/L (137-145)
[2020-08-25 11:13] LABS: INR 1.2
== END 2020-08-31 23:59 | disposition home or self-care (01) ==
LOC: ANHLAB 10:47
PROVIDERS: PCP Nurse Practitioner
DX: Z51.81 Encounter for therapeutic drug level monitoring (principal); Z95.811 Presence of heart assist device; Z79.01 Long term (current) use of anticoagulants
CPT/HCPCS: 36415; 80053; 83615; 85025; 85610

== ENCOUNTER 2020-12-08 11:10 | Outpatient (RCR) | payer MEDICARE, SELFPAY ==
[2020-09-24 12:30] LABS: Basophils Absolute Auto 0.1 K/mm3 (0.0-0.1); Basophils Percent Auto 1.2 % (0.2-1.2); Eosinophils Absolute Auto 0.5 K/mm3 (0-0.3); Eosinophils Percent Auto 6.2 % (0-4.4); Hematocrit 38.2 % (42.0-52.0); Hemoglobin 12.2 g/dL (14.0-18.0); Immature Granulocyte Absolute 0.07 K/mm3 (0.00-0.031); Immature Granulocyte Percent A 0.9 % (0-0.5); Lymphocytes Absolute Auto 0.76 K/mm3 (0.9-3.2); Lymphocytes Percent Auto 10.3 % (18.3-44.2); Mean Corpuscular HGB Conc 31.9 g/dl (32-36); Mean Corpuscular Hemoglobin 29.8 pg (26-34); Mean Corpuscular Volume 93.2 fl (80-100); Mean Platelet Volume 9.3 fl (7.4-10.4); Monocytes Absolute Auto 0.9 K/mm3 (0.1-0.6); Neutrophils Absolute Auto 5.1 K/mm3 (1.3-6.7); Neutrophils Percent Auto 69.4 % (45.5-73.1); Platelet Count Result 250 k/mm3 (150-375); Red Cell Distribution Width 14.2 % (11.5-14.5); White Blood Count 7.4 K/mm3 (4.5-10.0)
[2020-09-24 12:34] LABS: Alanine Aminotransferase 15 U/L (4-50); Albumin Level 3.9 g/dL (3.5-5.1); Alkaline Phosphatase 99 U/L (38-126); Anion Gap 4 mmol/L (8-16); Aspartate Amino Transferase 20 U/L (17-59); Bilirubin,Total 0.2 mg/dL (0.2-1.3); Blood Urea Nitrogen 29 mg/dL (9-20); Calcium 8.9 mg/dL (8.4-10.2); Carbon Dioxide 27 mmol/L (22-30); Chloride 110 mmol/L (98-107); Estimated Glomerular Filt Rate 50; Glucose 142 mg/dL (75-110); Lactate Dehydrogenase 580 U/L (313-618); Potassium 4.8 mmol/L (3.4-5.0); Sodium 141 mmol/L (137-145)
[2020-09-24 12:39] LABS: INR 2.3; Prothrombin Time 25.7 Seconds (11.1-14.7)
[2020-10-31 09:46] LABS: Basophils Absolute Auto 0.1 K/mm3 (0.0-0.1); Basophils Percent Auto 1.2 % (0.2-1.2); Eosinophils Absolute Auto 0.5 K/mm3 (0-0.3); Eosinophils Percent Auto 9.1 % (0-4.4); Hematocrit 41.1 % (42.0-52.0); Hemoglobin 13.1 g/dL (14.0-18.0); Immature Granulocyte Absolute 0.07 K/mm3 (0.00-0.031); Immature Granulocyte Percent A 1.2 % (0-0.5); Lymphocytes Absolute Auto 0.86 K/mm3 (0.9-3.2); Lymphocytes Percent Auto 15.3 % (18.3-44.2); Mean Corpuscular HGB Conc 31.9 g/dl (32-36); Mean Corpuscular Hemoglobin 29.9 pg (26-34); Mean Corpuscular Volume 93.8 fl (80-100); Mean Platelet Volume 9.9 fl (7.4-10.4); Monocytes Absolute Auto 0.8 K/mm3 (0.1-0.6); Neutrophils Absolute Auto 3.3 K/mm3 (1.3-6.7); Neutrophils Percent Auto 58.2 % (45.5-73.1); Platelet Count Result 211 k/mm3 (150-375); Red Blood Count 4.38 M/mm3 (4.6-6.20); Red Cell Distribution Width 14.1 % (11.5-14.5); White Blood Count 5.6 K/mm3 (4.5-10.0)
[2020-10-31 09:56] LABS: Alanine Aminotransferase 33 U/L (4-50); Albumin Level 4.4 g/dL (3.5-5.1); Alkaline Phosphatase 101 U/L (38-126); Anion Gap 12 mmol/L (8-16); Aspartate Amino Transferase 34 U/L (17-59); Bilirubin,Total 0.4 mg/dL (0.2-1.3); Blood Urea Nitrogen 37 mg/dL (9-20); Calcium 9.1 mg/dL (8.4-10.2); Carbon Dioxide 23 mmol/L (22-30); Chloride 103 mmol/L (98-107); Estimated Glomerular Filt Rate 43; Glucose 241 mg/dL (75-110); Lactate Dehydrogenase 581 U/L (313-618); Potassium 5.2 mmol/L (3.4-5.0); Sodium 138 mmol/L (137-145)
[2020-10-31 10:01] LABS: INR 2.4; Prothrombin Time 26.4 Seconds (11.1-14.7)
[2020-11-26 12:36] LABS: Basophils Absolute Auto 0.1 K/mm3 (0.0-0.1); Basophils Percent Auto 1.3 % (0.2-1.2); Eosinophils Absolute Auto 0.5 K/mm3 (0-0.3); Eosinophils Percent Auto 7.7 % (0-4.4); Hematocrit 41.7 % (42.0-52.0); Hemoglobin 13.1 g/dL (14.0-18.0); Immature Granulocyte Absolute 0.07 K/mm3 (0.00-0.031); Lymphocytes Absolute Auto 0.81 K/mm3 (0.9-3.2); Lymphocytes Percent Auto 11.6 % (18.3-44.2); Mean Corpuscular HGB Conc 31.4 g/dl (32-36); Mean Corpuscular Hemoglobin 29.7 pg (26-34); Mean Corpuscular Volume 94.6 fl (80-100); Mean Platelet Volume 9.6 fl (7.4-10.4); Monocytes Absolute Auto 0.7 K/mm3 (0.1-0.6); Monocytes Percent Auto 10.4 % (2.6-8.5); Neutrophils Absolute Auto 4.8 K/mm3 (1.3-6.7); Platelet Count Result 251 k/mm3 (150-375); Red Blood Count 4.41 M/mm3 (4.6-6.20); Red Cell Distribution Width 14.6 % (11.5-14.5)
[2020-11-26 12:44] LABS: INR 2.8; Prothrombin Time 30.1 Seconds (11.1-14.7)
[2020-11-26 12:47] LABS: Alanine Aminotransferase 14 U/L (4-50); Albumin Level 4.6 g/dL (3.5-5.1); Alkaline Phosphatase 92 U/L (38-126); Anion Gap 14 mmol/L (8-16); Aspartate Amino Transferase 21 U/L (17-59); Bilirubin,Total 0.4 mg/dL (0.2-1.3); Blood Urea Nitrogen 29 mg/dL (9-20); Calcium 9.3 mg/dL (8.4-10.2); Carbon Dioxide 23 mmol/L (22-30); Chloride 105 mmol/L (98-107); Estimated Glomerular Filt Rate 40; Glucose 94 mg/dL (75-110); Potassium 4.7 mmol/L (3.4-5.0); Sodium 142 mmol/L (137-145)
[2020-11-26 14:36] LABS: Lactate Dehydrogenase 666 U/L (313-618)
[2020-12-08 12:14] LABS: Alanine Aminotransferase 13 U/L (4-50); Albumin Level 4.6 g/dL (3.5-5.1); Alkaline Phosphatase 96 U/L (38-126); Anion Gap 10 mmol/L (8-16); Aspartate Amino Transferase 21 U/L (17-59); Bilirubin,Total 0.4 mg/dL (0.2-1.3); Blood Urea Nitrogen 30 mg/dL (9-20); Calcium 9.3 mg/dL (8.4-10.2); Carbon Dioxide 25 mmol/L (22-30); Chloride 103 mmol/L (98-107); Estimated Glomerular Filt Rate 43; Glucose 135 mg/dL (75-110); Lactate Dehydrogenase 619 U/L (313-618); Potassium 4.7 mmol/L (3.4-5.0); Sodium 138 mmol/L (137-145)
[2020-12-08 12:37] LABS: Basophils Absolute Auto 0.1 K/mm3 (0.0-0.1); Basophils Percent Auto 1.3 % (0.2-1.2); Eosinophils Absolute Auto 0.7 K/mm3 (0-0.3); Eosinophils Percent Auto 7.5 % (0-4.4); Hematocrit 37.8 % (42.0-52.0); Hemoglobin 11.8 g/dL (14.0-18.0); Immature Granulocyte Absolute 0.05 K/mm3 (0.00-0.031); Immature Granulocyte Percent A 0.6 % (0-0.5); Lymphocytes Absolute Auto 0.88 K/mm3 (0.9-3.2); Mean Corpuscular HGB Conc 31.2 g/dl (32-36); Mean Corpuscular Hemoglobin 29.5 pg (26-34); Mean Corpuscular Volume 94.5 fl (80-100); Mean Platelet Volume 9.3 fl (7.4-10.4); Neutrophils Absolute Auto 6.1 K/mm3 (1.3-6.7); Neutrophils Percent Auto 69.6 % (45.5-73.1); Platelet Count Result 240 k/mm3 (150-375); Red Cell Distribution Width 14.4 % (11.5-14.5); White Blood Count 8.8 K/mm3 (4.5-10.0)
[2020-12-08 13:07] LABS: INR 2.5; Prothrombin Time 26.7 Seconds (11.1-14.7)
== END 2020-12-23 23:59 | disposition home or self-care (01) ==
LOC: ANHLAB 11:10
PROVIDERS: PCP Nurse Practitioner; Referring Provider Nurse Practitioner
DX: Z95.811 Presence of heart assist device (principal)
CPT/HCPCS: 36415; 80053; 83615; 85025; 85610

== ENCOUNTER 2021-03-09 10:52 | Outpatient (RCR) | payer MEDICARE, SELFPAY ==
[2020-12-30 11:17] LABS: Basophils Percent Auto 0.5 % (0.2-1.2); Eosinophils Absolute Auto 0.1 K/mm3 (0-0.3); Eosinophils Percent Auto 1.2 % (0-4.4); Hematocrit 40.2 % (42.0-52.0); Hemoglobin 12.8 g/dL (14.0-18.0); Immature Granulocyte Absolute 0.17 K/mm3 (0.00-0.031); Mean Corpuscular HGB Conc 31.8 g/dl (32-36); Mean Corpuscular Hemoglobin 30.1 pg (26-34); Mean Corpuscular Volume 94.6 fl (80-100); Mean Platelet Volume 9.6 fl (7.4-10.4); Monocytes Absolute Auto 0.9 K/mm3 (0.1-0.6); Neutrophils Absolute Auto 6.1 K/mm3 (1.3-6.7); Neutrophils Percent Auto 73.3 % (45.5-73.1); Platelet Count Result 253 k/mm3 (150-375); Red Blood Count 4.25 M/mm3 (4.6-6.20); Red Cell Distribution Width 14.5 % (11.5-14.5); White Blood Count 8.3 K/mm3 (4.5-10.0)
[2020-12-30 11:27] LABS: INR 2.3; Prothrombin Time 24.4 Seconds (11.1-14.7)
[2020-12-30 11:32] LABS: Alanine Aminotransferase 26 U/L (4-50); Albumin Level 4.1 g/dL (3.5-5.1); Alkaline Phosphatase 101 U/L (38-126); Anion Gap 12 mmol/L (8-16); Aspartate Amino Transferase 20 U/L (17-59); Bilirubin,Total 0.5 mg/dL (0.2-1.3); Blood Urea Nitrogen 53 mg/dL (9-20); Calcium 9.5 mg/dL (8.4-10.2); Carbon Dioxide 23 mmol/L (22-30); Chloride 102 mmol/L (98-107); Estimated Glomerular Filt Rate 46; Glucose 196 mg/dL (65-110); Lactate Dehydrogenase 626 U/L (313-618); Potassium 4.5 mmol/L (3.4-5.0); Sodium 137 mmol/L (137-145)
[2021-02-06 11:16] LABS: INR 2.2; Prothrombin Time 23.9 Seconds (11.1-14.7)
[2021-02-06 11:20] LABS: Alanine Aminotransferase 16 U/L (4-50); Albumin Level 4.4 g/dL (3.5-5.1); Alkaline Phosphatase 102 U/L (38-126); Anion Gap 10 mmol/L (8-16); Aspartate Amino Transferase 23 U/L (17-59); Bilirubin,Total 0.4 mg/dL (0.2-1.3); Blood Urea Nitrogen 45 mg/dL (9-20); Calcium 9.3 mg/dL (8.4-10.2); Carbon Dioxide 26 mmol/L (22-30); Chloride 104 mmol/L (98-107); Estimated Glomerular Filt Rate 40; Glucose 107 mg/dL (65-110); Lactate Dehydrogenase 668 U/L (313-618); Sodium 140 mmol/L (137-145)
[2021-02-06 11:23] LABS: Basophils Absolute Auto 0.1 K/mm3 (0.0-0.1); Basophils Percent Auto 1.3 % (0.2-1.2); Eosinophils Absolute Auto 0.6 K/mm3 (0-0.3); Hematocrit 40.5 % (42.0-52.0); Hemoglobin 12.8 g/dL (14.0-18.0); Immature Granulocyte Absolute 0.07 K/mm3 (0.00-0.031); Lymphocytes Absolute Auto 0.85 K/mm3 (0.9-3.2); Mean Corpuscular HGB Conc 31.6 g/dl (32-36); Mean Corpuscular Hemoglobin 29.5 pg (26-34); Mean Corpuscular Volume 93.3 fl (80-100); Mean Platelet Volume 9.8 fl (7.4-10.4); Monocytes Absolute Auto 0.6 K/mm3 (0.1-0.6); Monocytes Percent Auto 8.9 % (2.6-8.5); Neutrophils Absolute Auto 4.9 K/mm3 (1.3-6.7); Neutrophils Percent Auto 68.8 % (45.5-73.1); Platelet Count Result 286 k/mm3 (150-375); Red Blood Count 4.34 M/mm3 (4.6-6.20); Red Cell Distribution Width 14.6 % (11.5-14.5); White Blood Count 7.1 K/mm3 (4.5-10.0)
[2021-03-09 11:25] LABS: Basophils Absolute Auto 0.1 K/mm3 (0.0-0.1); Basophils Percent Auto 0.6 % (0.2-1.2); Eosinophils Absolute Auto 0.3 K/mm3 (0-0.3); Eosinophils Percent Auto 3.2 % (0-4.4); Hematocrit 43.9 % (42.0-52.0); Hemoglobin 14.3 g/dL (14.0-18.0); Immature Granulocyte Absolute 0.15 K/mm3 (0.00-0.031); Immature Granulocyte Percent A 1.5 % (0-0.5); Lymphocytes Absolute Auto 1.12 K/mm3 (0.9-3.2); Lymphocytes Percent Auto 11.5 % (18.3-44.2); Mean Corpuscular HGB Conc 32.6 g/dl (32-36); Mean Corpuscular Hemoglobin 30.4 pg (26-34); Mean Corpuscular Volume 93.2 fl (80-100); Mean Platelet Volume 9.5 fl (7.4-10.4); Monocytes Absolute Auto 0.8 K/mm3 (0.1-0.6); Monocytes Percent Auto 8.6 % (2.6-8.5); Neutrophils Absolute Auto 7.2 K/mm3 (1.3-6.7); Neutrophils Percent Auto 74.6 % (45.5-73.1); Platelet Count Result 276 k/mm3 (150-375); Red Blood Count 4.71 M/mm3 (4.6-6.20); White Blood Count 9.7 K/mm3 (4.5-10.0)
[2021-03-09 11:39] LABS: INR 1.6; Prothrombin Time 18.7 Seconds (11.1-14.7)
[2021-03-09 12:21] LABS: Alanine Aminotransferase 22 U/L (4-50); Albumin Level 4.7 g/dL (3.5-5.1); Alkaline Phosphatase 95 U/L (38-126); Anion Gap 10 mmol/L (8-16); Aspartate Amino Transferase 23 U/L (17-59); Bilirubin,Total 0.5 mg/dL (0.2-1.3); Blood Urea Nitrogen 55 mg/dL (9-20); Calcium 9.4 mg/dL (8.4-10.2); Carbon Dioxide 27 mmol/L (22-30); Chloride 101 mmol/L (98-107); Estimated Glomerular Filt Rate 43; Glucose 301 mg/dL (65-110); Lactate Dehydrogenase 594 U/L (313-618); Potassium 4.3 mmol/L (3.4-5.0); Sodium 138 mmol/L (137-145)
== END 2021-03-30 23:59 | disposition home or self-care (01) ==
LOC: ANHLAB 10:52
PROVIDERS: PCP Nurse Practitioner
DX: Z95.811 Presence of heart assist device (principal)
CPT/HCPCS: 36415; 80053; 83615; 85025; 85610

== ENCOUNTER 2021-06-11 10:54 | Outpatient (RCR) | payer MEDICARE, SELFPAY ==
[2021-06-11 13:39] VITALS: BP 113/68; PULSE 59; RESP 20; TEMP 35.9; O2SAT 97
[2021-06-11] MEDS: diphenhydrAMINE HCl CAP 25 MG CAPSULE PO (13:51)
[2021-06-11] MEDS: ACETAMINOPHEN 325 MG TABLET 650 MG PO (13:51)
[2021-06-11] MEDS: FAMOTIDINE 20 MG TABLET PO (13:51)
[2021-06-11 15:16] VITALS: BP 117/65; PULSE 58; O2SAT 100
== END 2021-06-11 17:00 ==
LOC: AMCINF 10:54
PROVIDERS: PCP Nurse Practitioner; Visit Provider Internal Medicine Hematology & Oncology
DX: U07.1 COVID-19 (principal); I12.9 Hypertensive chronic kidney disease with stage 1 through stage 4 chronic kidney disease, or unspecified chronic kidney disease; I25.10 Atherosclerotic heart disease of native coronary artery without angina pectoris; E11.9 Type 2 diabetes mellitus without complications; N18.9 Chronic kidney disease, unspecified
CPT/HCPCS: A9270; M0247; Q0247

== ENCOUNTER 2021-07-03 12:38 | Outpatient (RCR) | payer MEDICARE, SELFPAY ==
[2021-04-07 12:08] LABS: Basophils Absolute Auto 0.1 K/mm3 (0.0-0.1); Basophils Percent Auto 1.2 % (0.2-1.2); Eosinophils Absolute Auto 0.3 K/mm3 (0-0.3); Eosinophils Percent Auto 4.6 % (0-4.4); Hematocrit 38.6 % (42.0-52.0); Hemoglobin 12.2 g/dL (14.0-18.0); Immature Granulocyte Absolute 0.08 K/mm3 (0.00-0.031); Immature Granulocyte Percent A 1.2 % (0-0.5); Lymphocytes Absolute Auto 0.64 K/mm3 (0.9-3.2); Lymphocytes Percent Auto 9.5 % (18.3-44.2); Mean Corpuscular HGB Conc 31.6 g/dl (32-36); Mean Corpuscular Hemoglobin 30.5 pg (26-34); Mean Corpuscular Volume 96.5 fl (80-100); Mean Platelet Volume 9.5 fl (7.4-10.4); Monocytes Absolute Auto 0.6 K/mm3 (0.1-0.6); Neutrophils Percent Auto 74.5 % (45.5-73.1); Platelet Count Result 258 k/mm3 (150-375); Red Cell Distribution Width 15.1 % (11.5-14.5); White Blood Count 6.8 K/mm3 (4.5-10.0)
[2021-04-07 12:18] LABS: INR 2.2; Prothrombin Time 23.6 Seconds (11.1-14.7)
[2021-04-07 13:51] LABS: Alanine Aminotransferase 15 U/L (4-50); Albumin Level 3.8 g/dL (3.5-5.1); Alkaline Phosphatase 93 U/L (38-126); Anion Gap 10 mmol/L (8-16); Aspartate Amino Transferase 20 U/L (17-59); Bilirubin,Total 0.3 mg/dL (0.2-1.3); Blood Urea Nitrogen 25 mg/dL (9-20); Calcium 8.5 mg/dL (8.4-10.2); Carbon Dioxide 20 mmol/L (22-30); Chloride 108 mmol/L (98-107); Estimated Glomerular Filt Rate 50; Glucose 218 mg/dL (65-110); Lactate Dehydrogenase 618 U/L (313-618); Potassium 5.1 mmol/L (3.4-5.0); Sodium 138 mmol/L (137-145)
[2021-05-18 11:03] LABS: Basophils Absolute Auto 0.1 K/mm3 (0.0-0.1); Basophils Percent Auto 1.2 % (0.2-1.2); Eosinophils Absolute Auto 0.6 K/mm3 (0-0.3); Eosinophils Percent Auto 8.5 % (0-4.4); Hematocrit 41.5 % (42.0-52.0); Hemoglobin 13.4 g/dL (14.0-18.0); Immature Granulocyte Absolute 0.06 K/mm3 (0.00-0.031); Immature Granulocyte Percent A 0.8 % (0-0.5); Lymphocytes Absolute Auto 0.91 K/mm3 (0.9-3.2); Lymphocytes Percent Auto 12.1 % (18.3-44.2); Mean Corpuscular HGB Conc 32.3 g/dl (32-36); Mean Corpuscular Volume 96.1 fl (80-100); Monocytes Absolute Auto 0.8 K/mm3 (0.1-0.6); Monocytes Percent Auto 10.5 % (2.6-8.5); Neutrophils Percent Auto 66.9 % (45.5-73.1); Platelet Count Result 266 k/mm3 (150-375); Red Blood Count 4.32 M/mm3 (4.6-6.20); Red Cell Distribution Width 14.7 % (11.5-14.5); White Blood Count 7.5 K/mm3 (4.5-10.0)
[2021-05-18 11:13] LABS: INR 2.4; Prothrombin Time 25.9 Seconds (11.1-14.7)
[2021-05-18 11:19] LABS: Alanine Aminotransferase 18 U/L (4-50); Albumin Level 4.6 g/dL (3.5-5.1); Alkaline Phosphatase 97 U/L (38-126); Anion Gap 9 mmol/L (8-16); Aspartate Amino Transferase 24 U/L (17-59); Bilirubin,Total 0.5 mg/dL (0.2-1.3); Blood Urea Nitrogen 29 mg/dL (9-20); Calcium 9.1 mg/dL (8.4-10.2); Carbon Dioxide 28 mmol/L (22-30); Chloride 99 mmol/L (98-107); Estimated Glomerular Filt Rate 50; Glucose 131 mg/dL (65-110); Lactate Dehydrogenase 599 U/L (313-618); Potassium 4.4 mmol/L (3.4-5.0); Sodium 136 mmol/L (137-145)
[2021-05-25 10:44] LABS: Basophils Absolute Auto 0.1 K/mm3 (0.0-0.1); Basophils Percent Auto 1.1 % (0.2-1.2); Eosinophils Absolute Auto 0.6 K/mm3 (0-0.3); Hematocrit 38.5 % (42.0-52.0); Hemoglobin 12.5 g/dL (14.0-18.0); Immature Granulocyte Absolute 0.04 K/mm3 (0.00-0.031); Immature Granulocyte Percent A 0.5 % (0-0.5); Lymphocytes Absolute Auto 0.79 K/mm3 (0.9-3.2); Lymphocytes Percent Auto 9.9 % (18.3-44.2); Mean Corpuscular HGB Conc 32.5 g/dl (32-36); Mean Corpuscular Volume 95.5 fl (80-100); Mean Platelet Volume 9.7 fl (7.4-10.4); Monocytes Absolute Auto 0.7 K/mm3 (0.1-0.6); Monocytes Percent Auto 8.4 % (2.6-8.5); Neutrophils Absolute Auto 5.9 K/mm3 (1.3-6.7); Neutrophils Percent Auto 73.1 % (45.5-73.1); Platelet Count Result 240 k/mm3 (150-375); Red Blood Count 4.03 M/mm3 (4.6-6.20); Red Cell Distribution Width 14.6 % (11.5-14.5)
[2021-05-25 10:55] LABS: INR 2.1; Prothrombin Time 23.1 Seconds (11.1-14.7)
[2021-05-25 11:00] LABS: Alanine Aminotransferase 17 U/L (4-50); Albumin Level 4.5 g/dL (3.5-5.1); Alkaline Phosphatase 111 U/L (38-126); Anion Gap 12 mmol/L (8-16); Aspartate Amino Transferase 22 U/L (17-59); Bilirubin,Total 0.5 mg/dL (0.2-1.3); Blood Urea Nitrogen 36 mg/dL (9-20); Calcium 9.2 mg/dL (8.4-10.2); Carbon Dioxide 25 mmol/L (22-30); Chloride 99 mmol/L (98-107); Estimated Glomerular Filt Rate 37; Glucose 152 mg/dL (65-110); Lactate Dehydrogenase 567 U/L (313-618); Potassium 4.1 mmol/L (3.4-5.0); Sodium 136 mmol/L (137-145)
[2021-07-03 13:23] LABS: Basophils Absolute Auto 0.1 K/mm3 (0.0-0.1); Basophils Percent Auto 1.2 % (0.2-1.2); Eosinophils Absolute Auto 0.4 K/mm3 (0-0.3); Eosinophils Percent Auto 5.9 % (0-4.4); Hematocrit 40.6 % (42.0-52.0); Hemoglobin 13.1 g/dL (14.0-18.0); Immature Granulocyte Absolute 0.07 K/mm3 (0.00-0.031); Immature Granulocyte Percent A 1.1 % (0-0.5); Lymphocytes Percent Auto 13.7 % (18.3-44.2); Mean Corpuscular HGB Conc 32.3 g/dl (32-36); Mean Corpuscular Hemoglobin 31.4 pg (26-34); Mean Corpuscular Volume 97.4 fl (80-100); Mean Platelet Volume 9.8 fl (7.4-10.4); Monocytes Absolute Auto 0.8 K/mm3 (0.1-0.6); Monocytes Percent Auto 11.4 % (2.6-8.5); Neutrophils Absolute Auto 4.4 K/mm3 (1.3-6.7); Neutrophils Percent Auto 66.7 % (45.5-73.1); Platelet Count Result 282 k/mm3 (150-375); Red Blood Count 4.17 M/mm3 (4.6-6.20); White Blood Count 6.6 K/mm3 (4.5-10.0)
[2021-07-03 13:33] LABS: Alanine Aminotransferase 21 U/L (4-50); Albumin Level 4.2 g/dL (3.5-5.1); Alkaline Phosphatase 113 U/L (38-126); Anion Gap 6 mmol/L (8-16); Aspartate Amino Transferase 23 U/L (17-59); Bilirubin,Total 0.4 mg/dL (0.2-1.3); Blood Urea Nitrogen 22 mg/dL (9-20); Carbon Dioxide 23 mmol/L (22-30); Chloride 107 mmol/L (98-107); Estimated Glomerular Filt Rate 54; Glucose 139 mg/dL (65-110); Lactate Dehydrogenase 614 U/L (313-618); Potassium 4.6 mmol/L (3.4-5.0); Sodium 136 mmol/L (137-145)
[2021-07-03 13:35] LABS: INR 2.3
== END 2021-07-06 23:59 | disposition home or self-care (01) ==
LOC: ANHLAB 12:38
PROVIDERS: PCP Nurse Practitioner
DX: Z95.811 Presence of heart assist device (principal)
CPT/HCPCS: 36415; 80053; 83615; 85025; 85610

== ENCOUNTER 2021-08-04 10:24 | Outpatient (RCR) | payer MEDICARE, SELFPAY ==
[2021-08-04 11:01] LABS: Hematocrit 37.2 % (42.0-52.0); Hemoglobin 11.9 g/dL (14.0-18.0); Mean Corpuscular Hemoglobin 30.8 pg (26-34); Mean Corpuscular Volume 96.4 fl (80-100); Mean Platelet Volume 9.7 fl (7.4-10.4); Platelet Count Result 247 k/mm3 (150-375); Red Blood Count 3.86 M/mm3 (4.6-6.20); Red Cell Distribution Width 14.2 % (11.5-14.5); White Blood Count 6.4 K/mm3 (4.5-10.0)
[2021-08-04 11:15] LABS: INR 1.8
[2021-08-04 11:25] LABS: Basophils Absolute Auto 0.1 K/mm3 (0.0-0.1); Basophils Percent Auto 1.2 % (0.2-1.2); Eosinophils Absolute Auto 0.5 K/mm3 (0-0.3); Eosinophils Percent Auto 7.8 % (0-4.4); Immature Granulocyte Absolute 0.03 K/mm3 (0.00-0.031); Immature Granulocyte Percent A 0.5 % (0-0.5); Lymphocytes Absolute Auto 0.73 K/mm3 (0.9-3.2); Lymphocytes Percent Auto 11.4 % (18.3-44.2); Monocytes Absolute Auto 0.7 K/mm3 (0.1-0.6); Monocytes Percent Auto 11.5 % (2.6-8.5); Neutrophils Absolute Auto 4.3 K/mm3 (1.3-6.7); Neutrophils Percent Auto 67.6 % (45.5-73.1)
[2021-08-04 11:35] LABS: Alanine Aminotransferase 13 U/L (4-50); Albumin Level 4.3 g/dL (3.5-5.1); Alkaline Phosphatase 109 U/L (38-126); Anion Gap 10 mmol/L (8-16); Aspartate Amino Transferase 19 U/L (17-59); Bilirubin,Total 0.5 mg/dL (0.2-1.3); Blood Urea Nitrogen 24 mg/dL (9-20); Calcium 8.8 mg/dL (8.4-10.2); Carbon Dioxide 24 mmol/L (22-30); Chloride 108 mmol/L (98-107); Estimated Glomerular Filt Rate 54; Glucose 190 mg/dL (65-110); Lactate Dehydrogenase 562 U/L (313-618); Potassium 4.4 mmol/L (3.4-5.0); Sodium 142 mmol/L (137-145)
== END 2021-11-02 23:59 | disposition home or self-care (01) ==
LOC: ANHLAB 10:24
PROVIDERS: PCP Nurse Practitioner
DX: Z51.11 Encounter for antineoplastic chemotherapy (principal); Z95.811 Presence of heart assist device
CPT/HCPCS: 36415; 80053; 83615; 85025; 85027; 85610

== ENCOUNTER 2021-08-20 11:28 | Outpatient (CLI) | payer MEDICARE, SELFPAY ==
[2021-08-20 12:15] LABS: Basophils Absolute Auto 0.1 K/mm3 (0.0-0.1); Eosinophils Absolute Auto 0.5 K/mm3 (0-0.3); Eosinophils Percent Auto 7.3 % (0-4.4); Hematocrit 39.2 % (42.0-52.0); Hemoglobin 12.6 g/dL (14.0-18.0); Immature Granulocyte Absolute 0.05 K/mm3 (0.00-0.031); Immature Granulocyte Percent A 0.7 % (0-0.5); Lymphocytes Absolute Auto 0.72 K/mm3 (0.9-3.2); Lymphocytes Percent Auto 10.4 % (18.3-44.2); Mean Corpuscular HGB Conc 32.1 g/dl (32-36); Mean Corpuscular Hemoglobin 30.6 pg (26-34); Mean Corpuscular Volume 95.1 fl (80-100); Mean Platelet Volume 9.6 fl (7.4-10.4); Monocytes Absolute Auto 0.7 K/mm3 (0.1-0.6); Monocytes Percent Auto 9.8 % (2.6-8.5); Neutrophils Absolute Auto 4.9 K/mm3 (1.3-6.7); Neutrophils Percent Auto 70.8 % (45.5-73.1); Platelet Count Result 249 k/mm3 (150-375); Red Blood Count 4.12 M/mm3 (4.6-6.20)
[2021-08-20 12:21] LABS: Cholesterol 97 mg/dL (0-200); HDL Direct 37 mg/dL; Triglycerides 85 mg/dL (<150); Uric Acid 6.4 mg/dL (3.5-8.5)
[2021-08-20 12:32] LABS: LDL Cholesterol Direct 34 mg/dL
[2021-08-20 13:05] LABS: Creatinine Urine 64.6 mg/dL
[2021-08-20 13:11] LABS: MALB Creatinine Ratio 12.8 mg/g (0-30); Microalbumin Urine Random 8.3 mg/L (0-16.7)
== END 2021-08-20 11:29 | disposition home or self-care (01) ==
PROVIDERS: PCP Nurse Practitioner; Visit Provider Nurse Practitioner
DX: E11.9 Type 2 diabetes mellitus without complications (principal); Z79.4 Long term (current) use of insulin
CPT/HCPCS: 36415; 80061; 82043; 82728; 84443; 84550; 85025

== ENCOUNTER 2022-02-24 11:17 | Outpatient (RCR) | payer MEDICARE, SELFPAY ==
[2022-01-12 12:48] LABS: Hemoglobin 12.9 g/dL (14.0-18.0); Mean Corpuscular HGB Conc 32.3 g/dl (32-36); Mean Corpuscular Hemoglobin 32.3 pg (26-34); Mean Corpuscular Volume 100.3 fl (80-100); Mean Platelet Volume 9.9 fl (7.4-10.4); Platelet Count Result 189 k/mm3 (150-375); Red Blood Count 3.99 M/mm3 (4.6-6.20); Red Cell Distribution Width 18.9 % (11.5-14.5); White Blood Count 7.1 K/mm3 (4.5-10.0)
[2022-01-12 12:58] LABS: Alanine Aminotransferase 29 U/L (6-50); Albumin Level 4.3 g/dL (3.5-5.1); Alkaline Phosphatase 143 U/L (38-126); Anion Gap 12 mmol/L (8-16); Aspartate Amino Transferase 37 U/L (17-59); Bilirubin,Total 0.5 mg/dL (0.2-1.3); Blood Urea Nitrogen 29 mg/dL (9-20); Calcium 9.2 mg/dL (8.4-10.2); Carbon Dioxide 24 mmol/L (22-30); Chloride 99 mmol/L (98-107); Estimated Glomerular Filt Rate > 60; Glucose 268 mg/dL (65-110); Lactate Dehydrogenase 248 U/L (120-246); Potassium 5.5 mmol/L (3.4-5.0); Sodium 135 mmol/L (137-145)
[2022-01-12 12:59] LABS: INR 2.1; Prothrombin Time 22.6 Seconds (11.1-14.7)
[2022-01-28 11:16] LABS: Basophils Absolute Auto 0.1 K/mm3 (0.0-0.1); Basophils Percent Auto 1.2 % (0.2-1.2); Hematocrit 39.5 % (42.0-52.0); Hemoglobin 12.7 g/dL (14.0-18.0); Immature Granulocyte Absolute 0.04 K/mm3 (0.00-0.031); Immature Granulocyte Percent A 0.5 % (0-0.5); Lymphocytes Absolute Auto 0.78 K/mm3 (0.9-3.2); Lymphocytes Percent Auto 10.5 % (18.3-44.2); Mean Corpuscular HGB Conc 32.2 g/dl (32-36); Mean Corpuscular Hemoglobin 32.2 pg (26-34); Mean Platelet Volume 10.1 fl (7.4-10.4); Monocytes Absolute Auto 0.9 K/mm3 (0.1-0.6); Monocytes Percent Auto 12.1 % (2.6-8.5); Neutrophils Absolute Auto 4.7 K/mm3 (1.3-6.7); Neutrophils Percent Auto 62.7 % (45.5-73.1); Platelet Count Result 169 k/mm3 (150-375); Red Blood Count 3.95 M/mm3 (4.6-6.20); Red Cell Distribution Width 17.8 % (11.5-14.5); White Blood Count 7.5 K/mm3 (4.5-10.0)
[2022-01-28 11:25] LABS: INR 3.4; Prothrombin Time 33.4 Seconds (11.1-14.7)
[2022-01-28 12:50] LABS: Alanine Aminotransferase 25 U/L (6-50); Albumin Level 4.2 g/dL (3.5-5.1); Alkaline Phosphatase 122 U/L (38-126); Anion Gap 13 mmol/L (8-16); Aspartate Amino Transferase 32 U/L (17-59); Bilirubin,Total 0.4 mg/dL (0.2-1.3); Blood Urea Nitrogen 25 mg/dL (9-20); Calcium 8.8 mg/dL (8.4-10.2); Carbon Dioxide 28 mmol/L (22-30); Chloride 99 mmol/L (98-107); Estimated Glomerular Filt Rate 50; Glucose 60 mg/dL (65-110); Lactate Dehydrogenase 248 U/L (120-246); Potassium 4.2 mmol/L (3.4-5.0); Sodium 140 mmol/L (137-145)
[2022-01-30 17:32] LABS: GGT 19 U/L (3-70)
[2022-02-10 11:15] LABS: Basophils Absolute Auto 0.1 K/mm3 (0.0-0.1); Basophils Percent Auto 0.8 % (0.2-1.2); Eosinophils Percent Auto 13.2 % (0-4.4); Immature Granulocyte Absolute 0.04 K/mm3 (0.00-0.031); Immature Granulocyte Percent A 0.6 % (0-0.5); Lymphocytes Absolute Auto 0.58 K/mm3 (0.9-3.2); Mean Corpuscular HGB Conc 32.4 g/dl (32-36); Mean Corpuscular Hemoglobin 33.3 pg (26-34); Mean Corpuscular Volume 102.8 fl (80-100); Mean Platelet Volume 9.6 fl (7.4-10.4); Monocytes Absolute Auto 0.8 K/mm3 (0.1-0.6); Monocytes Percent Auto 10.6 % (2.6-8.5); Neutrophils Absolute Auto 4.8 K/mm3 (1.3-6.7); Neutrophils Percent Auto 66.8 % (45.5-73.1); Platelet Count Result 159 k/mm3 (150-375); Red Cell Distribution Width 17.9 % (11.5-14.5); White Blood Count 7.3 K/mm3 (4.5-10.0)
[2022-02-10 11:20] LABS: Alanine Aminotransferase 26 U/L (6-50); Alkaline Phosphatase 122 U/L (38-126); Anion Gap 14 mmol/L (8-16); Aspartate Amino Transferase 28 U/L (17-59); Bilirubin,Total 0.5 mg/dL (0.2-1.3); Blood Urea Nitrogen 23 mg/dL (9-20); Calcium 9.1 mg/dL (8.4-10.2); Carbon Dioxide 24 mmol/L (22-30); Chloride 102 mmol/L (98-107); Estimated Glomerular Filt Rate 54; Glucose 169 mg/dL (65-110); Lactate Dehydrogenase 231 U/L (120-246); Potassium 4.8 mmol/L (3.4-5.0); Sodium 140 mmol/L (137-145)
[2022-02-10 11:29] LABS: INR 2.4
[2022-02-12 15:19] LABS: GGT 17 U/L (3-70)
[2022-02-24 12:36] LABS: Alanine Aminotransferase 23 U/L (6-50); Albumin Level 3.9 g/dL (3.5-5.1); Alkaline Phosphatase 133 U/L (38-126); Anion Gap 11 mmol/L (8-16); Aspartate Amino Transferase 28 U/L (17-59); Bilirubin,Total 0.5 mg/dL (0.2-1.3); Blood Urea Nitrogen 31 mg/dL (9-20); Calcium 8.5 mg/dL (8.4-10.2); Carbon Dioxide 22 mmol/L (22-30); Chloride 104 mmol/L (98-107); Estimated Glomerular Filt Rate 54; Glucose 185 mg/dL (65-110); INR 3.5; Lactate Dehydrogenase 252 U/L (120-246); Potassium 4.8 mmol/L (3.4-5.0); Sodium 137 mmol/L (137-145)
[2022-02-24 12:37] LABS: Basophils Absolute Auto 0.1 K/mm3 (0.0-0.1); Basophils Percent Auto 1.4 % (0.2-1.2); Eosinophils Absolute Auto 0.7 K/mm3 (0-0.3); Eosinophils Percent Auto 10.7 % (0-4.4); Hematocrit 36.6 % (42.0-52.0); Hemoglobin 11.5 g/dL (14.0-18.0); Immature Granulocyte Absolute 0.03 K/mm3 (0.00-0.031); Immature Granulocyte Percent A 0.5 % (0-0.5); Mean Corpuscular HGB Conc 31.4 g/dl (32-36); Mean Corpuscular Hemoglobin 33.8 pg (26-34); Mean Corpuscular Volume 107.6 fl (80-100); Mean Platelet Volume 10.3 fl (7.4-10.4); Monocytes Absolute Auto 0.7 K/mm3 (0.1-0.6); Monocytes Percent Auto 10.2 % (2.6-8.5); Neutrophils Absolute Auto 4.6 K/mm3 (1.3-6.7); Neutrophils Percent Auto 68.2 % (45.5-73.1); Platelet Count Result 142 k/mm3 (150-375); Red Cell Distribution Width 17.4 % (11.5-14.5); White Blood Count 6.7 K/mm3 (4.5-10.0)
[2022-02-24 13:11] LABS: Anisocytosis 1+ (NORMAL); Platelet Estimate Adequate (Adequate); Schistocytes None Seen (NORMAL)
== END 2022-04-12 23:59 | disposition home or self-care (01) ==
LOC: ANHLAB 11:17
PROVIDERS: PCP Nurse Practitioner; Referring Provider Nurse Practitioner; Visit Provider Internal Medicine
DX: Z51.81 Encounter for therapeutic drug level monitoring (principal); Z95.811 Presence of heart assist device; Z79.01 Long term (current) use of anticoagulants
CPT/HCPCS: 36415; 80053; 82977; 83615; 85025; 85027; 85610

== ENCOUNTER 2022-02-26 10:00 | Outpatient (CLI) | payer MEDICARE, SELFPAY ==
--- NOTE | ~2022-02-26 | CT_ITS ---
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 The dose-length product (DLP) was 1306.15 mGy-cm. Automated exposure control and iterative reconstruction technique were employed. COMPARISON: None available FINDINGS: CHEST: There is a small right pleural effusion with associated visceral and parietal pleural thickeni ng. A trace left pleural effusion is present. There is dependent atelectasis of the lungs. No pneumot horax is identified. A triple lead cardiac pacemaker of the left chest wall ends with leads in expect ed locations. A left ventricular assist device is noted. There is mild mediastinal lymphadenopathy, l ikely reactive. Cardiomegaly is noted. There are bridging osteophytes at multiple levels in the spine , consistent with diffuse idiopathic skeletal hyperostosis (DISH). ABDOMEN: Electronically enters the abdomen at the level of the umbilicus courses to the left ventricu lar assist device. No associated inflammatory stranding or infection are identified. Stones are prese nt in the nondistended gallbladder. The liver, spleen, pancreas, and adrenal glands are normal. Nonob structing stones of the right kidney measure up to 3 mm. There is a 3 mm nonobstructing stone of the left kidney. No pathologically enlarged abdominal lymph nodes are identified. There is no free intrap eritoneal gas or evidence of bowel obstruction. There is severe lumbar spondylosis. IMPRESSION: 1. No definite infection seen in association with the left ventricular assist device. 2. Probable right-sided empyema. 3. Cholelithiasis without evidence of cholecystitis. Reviewed, dictated and finalized at location A. IMPRESSION: 1. No definite infection seen in association with the left ventricular assist d evice. 2. Probable right-sided empyema. 3. Cholelithiasis without evidence of cholecystitis.
== END 2022-02-26 10:01 | disposition home or self-care (01) ==
PROVIDERS: PCP Nurse Practitioner
DX: T82.7XXA Infection and inflammatory reaction due to other cardiac and vascular devices, implants and grafts, initial encounter (principal); K80.20 Calculus of gallbladder without cholecystitis without obstruction
CPT/HCPCS: 71260; 74160; Q9967

== ENCOUNTER 2022-05-11 12:16 | Outpatient (RCR) | payer MEDICARE, SELFPAY ==
[2022-04-19 11:42] LABS: Basophils Absolute Auto 0.1 K/mm3 (0.0-0.1); Basophils Percent Auto 1.1 % (0.2-1.2); Eosinophils Absolute Auto 0.9 K/mm3 (0-0.3); Eosinophils Percent Auto 10.6 % (0-4.4); Hematocrit 31.8 % (42.0-52.0); Hemoglobin 10.4 g/dL (14.0-18.0); Immature Granulocyte Absolute 0.09 K/mm3 (0.00-0.031); Immature Granulocyte Percent A 1.1 % (0-0.5); Lymphocytes Absolute Auto 0.77 K/mm3 (0.9-3.2); Lymphocytes Percent Auto 9.5 % (18.3-44.2); Mean Corpuscular HGB Conc 32.7 g/dl (32-36); Mean Corpuscular Hemoglobin 32.5 pg (26-34); Mean Corpuscular Volume 99.4 fl (80-100); Mean Platelet Volume 10.8 fl (7.4-10.4); Monocytes Absolute Auto 0.9 K/mm3 (0.1-0.6); Monocytes Percent Auto 10.8 % (2.6-8.5); Neutrophils Absolute Auto 5.4 K/mm3 (1.3-6.7); Neutrophils Percent Auto 66.9 % (45.5-73.1); Platelet Count Result 254 k/mm3 (150-375); Red Cell Distribution Width 15.1 % (11.5-14.5); White Blood Count 8.1 K/mm3 (4.5-10.0)
[2022-04-19 11:49] LABS: INR 2.8; Prothrombin Time 28.9 Seconds (11.1-14.7)
[2022-04-19 11:50] LABS: Alanine Aminotransferase 17 U/L (6-50); Albumin Level 3.7 g/dL (3.5-5.1); Alkaline Phosphatase 220 U/L (38-126); Anion Gap 10 mmol/L (8-16); Aspartate Amino Transferase 21 U/L (17-59); Bilirubin,Total 0.4 mg/dL (0.2-1.3); Blood Urea Nitrogen 33 mg/dL (9-20); Calcium 8.7 mg/dL (8.4-10.2); Carbon Dioxide 27 mmol/L (22-30); Chloride 101 mmol/L (98-107); Estimated Glomerular Filt Rate 40; Glucose 282 mg/dL (65-110); Lactate Dehydrogenase 245 U/L (120-246); Potassium 4.3 mmol/L (3.4-5.0); Sodium 138 mmol/L (137-145)
[2022-04-29 14:03] LABS: Hematocrit 34.5 % (42.0-52.0); Hemoglobin 11.1 g/dL (14.0-18.0); Mean Corpuscular HGB Conc 32.2 g/dl (32-36); Mean Corpuscular Hemoglobin 32.6 pg (26-34); Mean Corpuscular Volume 101.2 fl (80-100); Mean Platelet Volume 10.5 fl (7.4-10.4); Platelet Count Result 256 k/mm3 (150-375); Red Blood Count 3.41 M/mm3 (4.6-6.20); Red Cell Distribution Width 15.5 % (11.5-14.5); White Blood Count 9.3 K/mm3 (4.5-10.0)
[2022-04-29 14:17] LABS: INR 1.8; Prothrombin Time 20.5 Seconds (11.1-14.7)
[2022-04-29 14:33] LABS: Alanine Aminotransferase 21 U/L (6-50); Albumin Level 3.6 g/dL (3.5-5.1); Alkaline Phosphatase 179 U/L (38-126); Anion Gap 8 mmol/L (8-16); Aspartate Amino Transferase 25 U/L (17-59); Bilirubin,Total 0.4 mg/dL (0.2-1.3); Blood Urea Nitrogen 28 mg/dL (9-20); Calcium 8.5 mg/dL (8.4-10.2); Carbon Dioxide 26 mmol/L (22-30); Chloride 106 mmol/L (98-107); Estimated Glomerular Filt Rate 54; Glucose 169 mg/dL (65-110); Lactate Dehydrogenase 300 U/L (120-246); Potassium 4.4 mmol/L (3.4-5.0); Sodium 140 mmol/L (137-145)
[2022-05-11 12:36] LABS: Basophils Absolute Auto 0.1 K/mm3 (0.0-0.1); Basophils Percent Auto 1.4 % (0.2-1.2); Eosinophils Absolute Auto 0.7 K/mm3 (0-0.3); Eosinophils Percent Auto 8.8 % (0-4.4); Hematocrit 33.3 % (42.0-52.0); Hemoglobin 10.4 g/dL (14.0-18.0); Immature Granulocyte Absolute 0.07 K/mm3 (0.00-0.031); Immature Granulocyte Percent A 0.9 % (0-0.5); Lymphocytes Absolute Auto 0.76 K/mm3 (0.9-3.2); Lymphocytes Percent Auto 9.7 % (18.3-44.2); Mean Corpuscular HGB Conc 31.2 g/dl (32-36); Mean Corpuscular Hemoglobin 32.1 pg (26-34); Mean Corpuscular Volume 102.8 fl (80-100); Mean Platelet Volume 9.8 fl (7.4-10.4); Monocytes Percent Auto 12.4 % (2.6-8.5); Neutrophils Absolute Auto 5.3 K/mm3 (1.3-6.7); Neutrophils Percent Auto 66.8 % (45.5-73.1); Platelet Count Result 264 k/mm3 (150-375); Red Blood Count 3.24 M/mm3 (4.6-6.20); Red Cell Distribution Width 15.3 % (11.5-14.5); White Blood Count 7.9 K/mm3 (4.5-10.0)
[2022-05-11 12:46] LABS: Alanine Aminotransferase 16 U/L (6-50); Albumin Level 3.9 g/dL (3.5-5.1); Alkaline Phosphatase 163 U/L (38-126); Anion Gap 7 mmol/L (8-16); Aspartate Amino Transferase 19 U/L (17-59); Bilirubin,Total 0.3 mg/dL (0.2-1.3); Blood Urea Nitrogen 28 mg/dL (9-20); Calcium 8.4 mg/dL (8.4-10.2); Carbon Dioxide 29 mmol/L (22-30); Chloride 104 mmol/L (98-107); Estimated Glomerular Filt Rate 40; Glucose 88 mg/dL (65-110); Lactate Dehydrogenase 238 U/L (120-246); Potassium 4.4 mmol/L (3.4-5.0); Sodium 140 mmol/L (137-145)
[2022-05-11 12:55] LABS: INR 1.2; Prothrombin Time 14.7 Seconds (11.1-14.7)
== END 2022-07-18 23:59 | disposition home or self-care (01) ==
LOC: ANHLAB 12:16
PROVIDERS: PCP Nurse Practitioner; Visit Provider Internal Medicine
DX: Z51.81 Encounter for therapeutic drug level monitoring (principal); Z95.811 Presence of heart assist device; Z79.01 Long term (current) use of anticoagulants
CPT/HCPCS: 36415; 80053; 83615; 85025; 85027; 85610

== ENCOUNTER 2022-05-14 12:22 | Outpatient (CLI) | payer MEDICARE, SELFPAY ==
[2022-05-14 14:03] LABS: INR 1.3; Prothrombin Time 15.6 Seconds (11.1-14.7)
== END 2022-05-14 12:23 | disposition home or self-care (01) ==
LOC: ANHLAB 12:24
PROVIDERS: PCP Nurse Practitioner; Visit Provider Internal Medicine
DX: Z79.01 Long term (current) use of anticoagulants (principal); Z95.811 Presence of heart assist device
CPT/HCPCS: 36415; 85610

== ENCOUNTER 2022-05-27 10:19 | Outpatient (CLI) | payer MEDICARE, SELFPAY ==
--- NOTE | ~2022-05-27 | CT_ITS ---
EXAMINATION: CT chest abdomen w con INDICATION: Infection associated with driveline of LVAD TECHNIQUE: Computed tomographic images of the chest and abdomen were obtained after the administratio n of 100 cc of Omnipaque 350 intravenous contrast. The dose-length product (DLP) was 1486.47 mGy-cm. Automated exposure control and iterative reconstruction technique were employed. COMPARISON: 02/26/2022 FINDINGS: CHEST: A left ventricular assist device is noted. There is cardiomegaly. A chronic small right-sided empyema is noted. There is no pneumothorax. There is mild bilateral gynecomastia. There is chronic mi ld mediastinal lymphadenopathy, likely reactive. There are bridging osteophytes at multiple levels in the spine, consistent with diffuse idiopathic skeletal hyperostosis (DISH). There is a triple lead p acemaker of the left chest wall with its leads in expected position. ABDOMEN: A stone is present in the nondistended gallbladder. The liver, spleen, pancreas, and adrenal glands are normal. There are small nonobstructing stones of the otherwise normal kidneys. There are no pathologically enlarged abdominal lymph nodes. Again seen is an electronic lead entering the mid a bdomen anteriorly and coursing superiorly in the abdomen where it connects to the LVAD. There is no f ree intraperitoneal gas or evidence of bowel obstruction. There is severe lumbar spondylosis. There i s a fat-containing midline epigastric hernia. There is also a fat-containing umbilical hernia. IMPRESSION: 1. No definite evidence of LVAD associated infection. 2. Cholelithiasis without evidence of cholecystitis. 3. Small right empyema, unchanged. Reviewed, dictated and finalized at location L. RADIATOR SPECIALIST
== END 2022-05-27 10:20 | disposition home or self-care (01) ==
PROVIDERS: PCP Nurse Practitioner
DX: T82.7XXA Infection and inflammatory reaction due to other cardiac and vascular devices, implants and grafts, initial encounter (principal); K80.20 Calculus of gallbladder without cholecystitis without obstruction; J86.9 Pyothorax without fistula
CPT/HCPCS: 71260; 74160; Q9967

== ENCOUNTER 2022-07-22 10:06 | Outpatient (CLI) | payer MEDICARE, SELFPAY ==
--- NOTE | ~2022-07-22 | CT_ITS ---
Clinical Indication: Infection CT Scan of the Chest and Abdomen with Contrast: Technique: Contiguous sections were acquired throughout the chest and abdomen after intravenous admin istration of 100 cc of Omnipaque 350. Dose reduction technique was used on this scan by utilizing au tomated exposure control and iterative reconstruction technique. The dose-length product (DLP) was 13 65.76 mGy-cm. COMPARISON: 05/27/2022 Findings: There is no evidence of any significant mediastinal, hilar or axillary lymphadenopathy. Left ventricu lar cyst device is in place. Pacemaker device in place. No pericardial effusion. No aortic aneurysm i dentified. There is a small right pleural effusion with thickening of the pleural lining about the effusion. No left pleural effusion. The liver, spleen, pancreas, and adrenal glands are within normal limits. Cholelithiasis noted. Proba ble small bilateral nonobstructing renal stones present. No evidence of aortic aneurysm. No lymphade nopathy. Visualized bowel loops are unremarkable. No ascites. There is a ventral fat-containing hernia just in ferior to the xiphoid process. Impression: Small right pleural effusion with thickened pleural lining. This stable from prior exam, and could re flect chronic empyema versus other chronic complex/exudative effusion. Left ventricular assist device in place, unchanged. Cholelithiasis. Small nonobstructing bilateral renal stones. Reviewed, dictated and finalized at [facility]. ULA CHECKER Impression: Small right pleural effusion with thickened pleural lining. This stable from pr ior exam, and could reflect chronic empyema versus other chronic complex/exudat manjula effusion. Left ventricular assist device in place, unchanged. Cholelithiasis. Small nonobstructing bilateral renal stones.
[2022-07-22 10:47] LABS: Estimated Glomerular Filt Rate 46
== END 2022-07-22 10:07 | disposition home or self-care (01) ==
PROVIDERS: PCP Nurse Practitioner
DX: T82.7XXA Infection and inflammatory reaction due to other cardiac and vascular devices, implants and grafts, initial encounter (principal); J90 Pleural effusion, not elsewhere classified; Z95.0 Presence of cardiac pacemaker; K80.20 Calculus of gallbladder without cholecystitis without obstruction; N20.0 Calculus of kidney
CPT/HCPCS: 71260; 74160; Q9967

== ENCOUNTER 2022-09-18 10:45 | Outpatient (NON) | payer MEDICARE, SELFPAY ==
[2022-09-18 12:18] LABS: Toxigenic C. Diff NEGATIVE (NEGATIVE)
== END 2022-09-18 10:46 | disposition home or self-care (01) ==
PROVIDERS: PCP Nurse Practitioner
DX: R19.7 Diarrhea, unspecified (principal)
CPT/HCPCS: 87493

== ENCOUNTER 2023-05-12 15:09 | Outpatient (NON) | payer MEDICARE, SELFPAY ==
[2023-05-12 16:37] LABS: Toxigenic C. Diff NEGATIVE (NEGATIVE)
== END 2023-05-12 15:10 | disposition home or self-care (01) ==
PROVIDERS: PCP Nurse Practitioner
DX: K52.1 Toxic gastroenteritis and colitis (principal); T36.95XA Adverse effect of unspecified systemic antibiotic, initial encounter
CPT/HCPCS: 87493

== ENCOUNTER 2023-09-22 13:19 | Outpatient (CLI) | payer MEDICARE, SELFPAY ==
[2023-09-22 21:53] LABS: Hepatitis B Surface Antigen Negative (Negative)
[2023-09-22 22:11] LABS: Hepatitis C Virus Antibody Negative (Negative)
[2023-09-24 00:53] LABS: Hepatitis A Antibody Total NON-REACTIVE (NON-REACTIVE); Hepatitis B Core Ab Total NON-REACTIVE (NON-REACTIVE)
== END 2023-09-22 13:20 | disposition home or self-care (01) ==
PROVIDERS: PCP Nurse Practitioner
DX: Z11.59 Encounter for screening for other viral diseases (principal); R74.8 Abnormal levels of other serum enzymes
CPT/HCPCS: 36415; 86704; 86708; 86803; 87340

== ENCOUNTER 2024-03-10 14:17 | Emergency (ER) | payer MEDICARE, SELFPAY ==
[2024-03-10 14:31] VITALS: BP 112/81; PULSE 43; RESP 18; TEMP 36.6; O2SAT 100
[2024-03-10 14:47] VITALS: BP 116/58; PULSE 64; RESP 19; O2SAT 100
[2024-03-10 15:01] VITALS: BP 123/83; PULSE 39; RESP 19; O2SAT 98
--- NOTE | 2024-03-10 15:09 | PC.NURSE ---
Pt reports dizziness on exertion, but not while resting in bed.
[2024-03-10 15:14] LABS: Basophils Absolute Auto 0.1 K/mm3 (0.0-0.1); Basophils Percent Auto 1.3 % (0.2-1.2); Eosinophils Absolute Auto 0.7 K/mm3 (0-0.3); Eosinophils Percent Auto 8.6 % (0-4.4); Hematocrit 32.3 % (42.0-52.0); Hemoglobin 10.5 g/dL (14.0-18.0); Immature Granulocyte Absolute 0.03 K/mm3 (0.00-0.031); Immature Granulocyte Percent A 0.4 % (0-0.5); Lymphocytes Absolute Auto 0.92 K/mm3 (0.9-3.2); Lymphocytes Percent Auto 12.2 % (18.3-44.2); Mean Corpuscular HGB Conc 32.5 g/dl (32-36); Mean Corpuscular Hemoglobin 31.2 pg (26-34); Mean Corpuscular Volume 95.8 fl (80-100); Mean Platelet Volume 10.5 fl (7.4-10.4); Monocytes Percent Auto 13.7 % (2.6-8.5); Neutrophils Absolute Auto 4.8 K/mm3 (1.3-6.7); Neutrophils Percent Auto 63.8 % (45.5-73.1); Platelet Count Result 180 k/mm3 (150-375); Red Blood Count 3.37 M/mm3 (4.6-6.20); Red Cell Distribution Width 13.7 % (11.5-14.5); White Blood Count 7.6 K/mm3 (4.5-10.0)
--- NOTE | 2024-03-10 15:35 | ED_ITS ---
HPI - General Adult General Chief complaint: Recheck/Abnormal Lab/Rx Stated complaint: LVAD Patient w/ low BP Time Seen by Provider: 03/10/24 14:36 History of Present Illness HPI narrative: 73-year-old male with a current LVAD presented to the emergency department for evaluation for some lightheaded and dizziness that occurred home. Patient states this morning he did have some lightheaded and dizziness with ambulation. Patient checked his blood pressure and it was undetectable on a blood pressure cuff that usually works for him. Patient then was able to get a blood pressure to show up and it was lower than is typical. Patient called his elevated service and he was told to present to [facility]. Upon arrival emergency department patient's blood pressure is within his reported normal limits. Patient is resting comfortably and is in no distress. Patient denies any lightheaded dizziness at rest. Patient denies any current chest pain. Related Data Home Medications Medication Instructions Recorded Confirmed acetaminophen 650 mg tablet 650 mg PO Q6H PRN Pain 06/11/21 06/11/21 albuterol sulfate 90 mcg/actuation 2 puff inhalation QID 06/11/21 06/11/21 aerosol inhaler allopurinol 100 mg tablet 100 mg PO DAILY 06/11/21 06/11/21 amlodipine 10 mg tablet 10 mg PO DAILY 06/11/21 06/11/21 aspirin 325 mg tablet 325 mg PO DAILY 06/11/21 06/11/21 carvedilol 25 mg tablet 25 mg PO BID 06/11/21 06/11/21 ergocalciferol (vitamin D2) 50,000 1 unit PO WEEKLY 06/11/21 06/11/21 unit tablet ferrous sulfate 325 mg (65 mg 325 mg PO DAILY 06/11/21 06/11/21 iron) tablet hydralazine 50 mg tablet 50 mg PO TID 06/11/21 06/11/21 insulin aspart U-100 100 unit/mL 1 sliding scale dose subcut 06/11/21 06/11/21 subcutaneous solution (Novolog USEASDIRECTD U-100 Insulin aspart) insulin glargine 100 unit/mL (3 30 unit subcut HS 06/11/21 06/11/21 mL) subcutaneous pen (Basaglar KwikPen U-100 Insulin) isosorbide mononitrate 60 mg 90 mg PO DAILY 06/11/21 06/11/21 tablet,extended release 24 hr levothyroxine 75 mcg tablet 75 mcg PO DAILY 06/11/21 06/11/21 aptzjz-niemxmmj-gyptmkc 3 tablet PO TID 06/11/21 06/11/21 8,000-30,000-30,000 unit tablet losartan 50 mg tablet 100 mg PO DAILY 06/11/21 06/11/21 magnesium oxide 800 mg PO BID 06/11/21 06/11/21 multivit with minerals-iron 18 1 tablet PO DAILY 06/11/21 06/11/21 mg-folic ac 400 mcg-vit K 25 mcg tablet (Adults Multivitamin) nitroglycerin 0.4 mg sublingual 0.4 mg sublingual Q5-15M PRN Chest 06/11/21 06/11/21 tablet Pain pantoprazole 40 mg tablet,delayed 40 mg PO QAM 06/11/21 06/11/21 release (Protonix) rosuvastatin 20 mg tablet (Crestor) 20 mg PO DAILY 06/11/21 06/11/21 tamsulosin 0.4 mg capsule (Flomax) 0.4 mg PO DAILY 06/11/21 06/11/21 torsemide 20 mg tablet 20 mg PO QAM 06/11/21 06/11/21 trazodone 50 mg tablet 50 mg PO HS PRN Sleep 06/11/21 06/11/21 ustekinumab 45 mg/0.5 mL 45 mg subcut ONCE 06/11/21 06/11/21 subcutaneous solution (Stelara) warfarin 4 mg tablet 5 mg PO DAILY 06/11/21 06/11/21 Allergies Allergy/AdvReac Type Severity Reaction Status Date / Time Sulfa (Sulfonamide Allergy Mild Verified 06/11/21 13:42 Antibiotics) levofloxacin Allergy Unknown Verified 06/11/21 13:42 Penicillins Allergy Unknown Verified 06/11/21 13:42 Quinolones Allergy Unknown Verified 06/11/21 13:42 Review of Systems Review of Systems: All systems reviewed & are unremarkable except as noted in HPI and below Exam Narrative: APPEARANCE: Well appearing, no pain, no distress, well-nourished. HEAD: normocephalic, atraumatic. EYES: PERRLA/EOMI, conjunctivae clear. NOSE: Normal no drainage EARS:TMS clear with good light reflex. THROAT: Pharynx clear, no exudate. NECK: Supple. No adenopathy, no masses. RESPIRATORY: Airway patent, respirations nonlabored. Clear to auscultation bilaterally, no rales, rhonchi, wheezing. CARDIOVASCULAR: Regular rate and rhythm without murmurs rubs or gallops. ABDOMINAL: Soft, nontender, nondistended, normal bowel sounds MUSCULOSKELETAL: Moves all extremities. Strength/ROM intact, No edema, No calf tenderness. NEURO: Alert. Cranial nerves II through XII intact. Grossly intact SKIN: Warm, dry. Normal Color Course Vital Signs Vital signs: Vital Signs Temperature 97.8 F 03/10/24 14:31 Pulse Rate 43 L 03/10/24 14:31 Respiratory Rate 18 03/10/24 14:31 Blood Pressure 112/81 03/10/24 14:31 Pulse Oximetry 100 03/10/24 14:31 Oxygen Delivery Room Air 03/10/24 14:31 Temperature 97.8 F 03/10/24 14:31 Pulse Rate 58 L 03/10/24 17:02 Respiratory Rate 18 03/10/24 17:02 Blood Pressure 138/100 H 03/10/24 17:02 Pulse Oximetry 100 03/10/24 17:02 Oxygen Delivery Room Air 03/10/24 14:31 Medical Decision Making MDM Narrative Medical decision making narrative: 73-year-old male presents emergency department for evaluation for initially feeling lightheaded and dizzy. Patient did feel improved in the emergency depa rtment. Patient's blood pressure did improve with a 500 mL bolus. Patient was afebrile with no leukocytosis but did have a mild VENU. I discussed the case with the LVAD team at [place] they are comfortable with patient being discharged to home if use asymptomatic. Patient was updated on the results of the workup and plan. Patient is requesting to be discharged home and had no complaints of lightheaded dizziness with ambulation in the emergency department. Patient was encouraged close follow-up with his LVAD team. All questions concerns were addressed. Differential Diagnosis Differential Diagnosis: Orthostatic hypotension, dehydration, LVAD issue Vital Signs Vital Signs: Vital Signs Temperature 97.8 F 03/10/24 14:31 Pulse Rate 43 L 03/10/24 14:31 Respiratory Rate 18 03/10/24 14:31 Blood Pressure 112/81 03/10/24 14:31 Pulse Oximetry 100 03/10/24 14:31 Oxygen Delivery Room Air 03/10/24 14:31 Temperature 97.8 F 03/10/24 14:31 Pulse Rate 58 L 03/10/24 17:02 Respiratory Rate 18 03/10/24 17:02 Blood Pressure 138/100 H 03/10/24 17:02 Pulse Oximetry 100 03/10/24 17:02 Oxygen Delivery Room Air 03/10/24 14:31 Lab Data Lab results reviewed: Yes I reviewed the patient's lab results. 03/10/24 15:08 03/10/24 15:08 Labs: Lab Results 03/10/24 Range/Units 15:08 WBC 7.6 (4.5-10.0) K/mm3 RBC 3.37 L (4.6-6.20) M/mm3 Hgb 10.5 L (14.0-18.0) g/dL Hct 32.3 L (42.0-52.0) % MCV 95.8 (80-100) fl MCH 31.2 (26-34) pg MCHC 32.5 (32-36) g/dl RDW 13.7 (11.5-14.5) % Plt Count 180 (150-375) k/mm3 MPV 10.5 H (7.4-10.4) fl Immature Gran % (Auto) 0.4 (0-0.5) % Neut % (Auto) 63.8 (45.5-73.1) % Lymph % (Auto) 12.2 L (18.3-44.2) % Antelope % (Auto) 13.7 H (2.6-8.5) % Eos % (Auto) 8.6 H (0-4.4) % Baso % (Auto) 1.3 H (0.2-1.2) % Lymph # (Auto) 0.92 (0.9-3.2) K/mm3 Antelope # (Auto) 1.0 H (0.1-0.6) K/mm3 Eos # (Auto) 0.7 H (0-0.3) K/mm3 Baso # (Auto) 0.1 (0.0-0.1) K/mm3 Abs Immat Gran (auto) 0.03 (0.00-0.031) K/mm3 Absolute Neuts (auto) 4.8 (1.3-6.7) K/mm3 Absolute Nucleated RBC 0.000 (0.0-0.012) K/mm3 Nucleated RBC % 0.0 (0.0-0.2) % Sodium 139 (137-145) mmol/L Potassium 4.2 (3.4-5.0) mmol/L Chloride 106 (98-107) mmol/L Carbon Dioxide 23 (22-30) mmol/L Anion Gap 10 (4-12) mmol/L BUN 41 H D (9-20) mg/dL Creatinine 1.80 H (0.7-1.3) mg/dL Estim Creat Clear Calc 40 ml/min Estimated GFR 37 L (59 - ) Glucose 105 (65-110) mg/dL Calcium 8.3 L (8.4-10.2) mg/dL Total Bilirubin 0.4 (0.2-1.3) mg/dL AST 63 H (17-59) U/L ALT 74 H (6-50) U/L Alkaline Phosphatase 109 (38-126) U/L Total Protein 7.0 (6.3-8.2) g/dL Albumin 3.7 (3.5-5.1) g/dL Discharge Plan Discharge Clinical Impression: Dizziness Patient Disposition: Home, Self-Care Condition: Stable Instructions: Antibiotic Form Additional Instructions: Have close follow-up with your LVAD team. Prescriptions: No Action losartan 50 mg Tablet 100 mg PO DAILY carvedilol 25 mg Tablet 25 mg PO BID aspirin 325 mg Tablet 325 mg PO DAILY allopurinol 100 mg Tablet 100 mg PO DAILY acetaminophen 650 mg Tablet 650 mg PO Q6H PRN (Reason: Pain) ergocalciferol (vitamin D2) 50,000 unit Tablet 1 unit PO WEEKLY levothyroxine 75 mcg Tablet 75 mcg PO DAILY isosorbide mononitrate 60 mg Tablet Extended Release 24 Hr 90 mg PO DAILY amlodipine 10 mg Tablet 10 mg PO DAILY insulin aspart U-100 [Novolog U-100 Insulin aspart] 100 unit/mL Solution 1 sliding scale dose SUBCUT USEASDIRECTD ferrous sulfate 325 mg (65 mg iron) Tablet 325 mg PO DAILY hydralazine 50 mg Tablet 50 mg PO TID albuterol sulfate 90 mcg/actuation Hfa Aerosol Inhaler 2 puff INHALATION QID Basaglar KwikPen U-100 Insulin 100 unit/mL (3 mL) Insulin Pen 30 unit SUBCUT HS Pancrelipase 8,000-30,000- 30,000 unit Tablet 3 tablet PO TID nitroglycerin 0.4 mg Tablet, Sublingual 0.4 mg SUBLINGUAL Q5-15M PRN (Reason: Chest Pain) magnesium oxide 400 mg magnesium Capsule 800 mg PO BID Adults Multivitamin 18 mg iron-400 mcg-25 mcg Tablet 1 tablet PO DAILY torsemide [Demadex] 20 mg Tablet 20 mg PO QAM trazodone [Desyrel] 50 mg Tablet 50 mg PO HS PRN (Reason: Sleep) warfarin [Coumadin] 4 mg Tablet 5 mg PO DAILY tamsulosin [Flomax] 0.4 mg Capsule 0.4 mg PO DAILY pantoprazole [Protonix] 40 mg Tablet,Delayed Release (Dr/Ec) 40 mg PO QAM rosuvastatin [Crestor] 20 mg Tablet 20 mg PO DAILY Stelara 45 mg/0.5 mL Solution 45 mg SUBCUT ONCE Rx Instructions: every three months Follow-up/Referrals: Gayle,ODELL Rivera [Primary Care Provider] -
[2024-03-10 15:38] LABS: Alanine Aminotransferase 74 U/L (6-50); Albumin Level 3.7 g/dL (3.5-5.1); Alkaline Phosphatase 109 U/L (38-126); Anion Gap 10 mmol/L (4-12); Aspartate Amino Transferase 63 U/L (17-59); Bilirubin,Total 0.4 mg/dL (0.2-1.3); Blood Urea Nitrogen 41 mg/dL (9-20); Calcium 8.3 mg/dL (8.4-10.2); Carbon Dioxide 23 mmol/L (22-30); Chloride 106 mmol/L (98-107); Estimated CRCL calculation 40 ml/min; Estimated Glomerular Filt Rate 37; Glucose 105 mg/dL (65-110); Potassium 4.2 mmol/L (3.4-5.0); Sodium 139 mmol/L (137-145)
[2024-03-10 16:02] VITALS: BP 134/91; PULSE 51; RESP 21; O2SAT 100
[2024-03-10 17:02] VITALS: BP 138/100; PULSE 58; RESP 18; O2SAT 100
[2024-03-10] MEDS: SODIUM CHLORIDE 0.9% IV 500 ML 999 ML IV CONT (17:15)
== END 2024-03-10 18:31 | disposition home or self-care (01) ==
PROVIDERS: Emergency Provider Emergency Medicine; PCP Nurse Practitioner
DX: R42 Dizziness and giddiness (principal); Z95.811 Presence of heart assist device
CPT/HCPCS: 36415; 80053; 85025; 96360; 99283; J7040

== ENCOUNTER 2024-03-16 10:30 | Outpatient (CLI) | payer MEDICARE, SELFPAY ==
[2024-03-16 11:13] LABS: Potassium 4.2 mmol/L (3.4-5.0)
== END 2024-03-16 10:31 | disposition home or self-care (01) ==
LOC: ANHLAB 10:35
PROVIDERS: PCP Nurse Practitioner; Visit Provider Nurse Practitioner
DX: E87.5 Hyperkalemia (principal)
CPT/HCPCS: 36415; 84132

== ENCOUNTER 2024-05-09 13:40 | Outpatient (CLI) | payer MEDICARE, SELFPAY ==
[2024-05-09 16:41] LABS: Hepatitis B Surface Anti Res Negative
[2024-05-10 06:58] LABS: Hepatitis A Antibody Total NON-REACTIVE (NON-REACTIVE); Hepatitis B Core Ab Total NON-REACTIVE (NON-REACTIVE)
== END 2024-05-09 13:41 | disposition home or self-care (01) ==
PROVIDERS: PCP Nurse Practitioner; Visit Provider Internal Medicine Gastroenterology
DX: R79.89 Other specified abnormal findings of blood chemistry (principal); Z11.59 Encounter for screening for other viral diseases
CPT/HCPCS: 36415; 86704; 86706; 86708

== ENCOUNTER 2024-05-25 15:21 | Outpatient (CLI) | payer MEDICARE, SELFPAY ==
[2024-05-25 18:53] LABS: Influenza A QL RT-PCR Negative (Negative); Influenza B QL RT-PCR Negative (Negative); RSV RNA, RT-PCR Negative (Negative); SARS-CoV-2 RNA PCR Negative (Negative)
== END 2024-05-25 15:22 | disposition home or self-care (01) ==
PROVIDERS: PCP Nurse Practitioner; Visit Provider Nurse Practitioner
DX: Z20.822 Contact with and (suspected) exposure to COVID-19 (principal)
CPT/HCPCS: 87637

== ENCOUNTER 2024-11-06 16:18 | Emergency (ER) | payer MEDICARE, SELFPAY ==
--- NOTE | ~2024-11-06 | CT_ITS ---
CT brain wo con Ordering provider: Joie Lugo APRN History: 74 years Male with . altered mental status . Comparison: February 23, 2050 Technique: CT of the head without contrast. Radiation reduction technique utilized.The dose-length product was 681 mGy-cm. FINDINGS: BRAIN PARENCHYMA AND CSF SPACES: Mild leukoaraiosis and diffuse cortical atrophy. Mild atheromatous d isease. hypodensities seen in the right cerebellar superior most likely artifactual. Lacunar infarct seen in the left basal ganglia. No midline shift, mass effect or hemorrhage. The brain parenchyma an d CSF spaces are otherwise normal. VISUALIZED PARANASAL SINUSES: Well aerated. MASTOIDS: Well aerated. BONES: The bones appear intact. SOFT TISSUES: Visualized nasopharynx is normal. Small hematoma is seen in the frontal scalp.Otherwis e, Superficial soft tissues are normal. IMPRESSION: No acute intracranial findings. Reviewed, dictated and finalized at location A.
[2024-11-06 16:25] VITALS: BP 129/78; BP 141/111; PULSE 66; PULSE 72; RESP 16; TEMP 37.1; O2SAT 98; O2SAT 99
--- NOTE | 2024-11-06 16:33 | ECG_ITS ---
Test Date: 2024-11-06 16:42:46 Measurements Intervals Bay Rate: 65 P: 69 LA: 168 QRS: 232 QRSD: 162 T: 33 QT: 415 QTc: 432 Interpretive Statements SINUS RHYTHM RIGHT BUNDLE BRANCH BLOCK AND POSSIBLE RIGHT VENTRICULAR HYPERTROPHY ANTEROLATERAL INFARCT, AGE INDETERMINATELATERAL INFERIOR INFARCT, AGE INDETERMINATE BASELINE ARTIFACT- I, II, III, AVR, AVL, AVF, V1-V6 ABNORMAL ECG No previous ECG available for comparison Electronically Signed On 11-06-2024 16:52:11 CDT by Ole Burrows D.O.
[2024-11-06 16:44] LABS: Basophils Absolute Auto 0.1 K/mm3 (0.0-0.1); Basophils Percent Auto 1.2 % (0.2-1.2); Eosinophils Absolute Auto 0.6 K/mm3 (0-0.3); Eosinophils Percent Auto 8.4 % (0-4.4); Hematocrit 36.7 % (42.0-52.0); Immature Granulocyte Absolute 0.03 K/mm3 (0.00-0.031); Immature Granulocyte Percent A 0.4 % (0-0.5); Lymphocytes Absolute Auto 0.88 K/mm3 (0.9-3.2); Lymphocytes Percent Auto 11.7 % (18.3-44.2); Mean Corpuscular HGB Conc 32.7 g/dl (32-36); Mean Corpuscular Hemoglobin 31.5 pg (26-34); Mean Corpuscular Volume 96.3 fl (80-100); Mean Platelet Volume 10.1 fl (7.4-10.4); Monocytes Absolute Auto 0.9 K/mm3 (0.1-0.6); Neutrophils Percent Auto 66.3 % (45.5-73.1); Platelet Count Result 180 k/mm3 (150-375); Red Blood Count 3.81 M/mm3 (4.6-6.20); Red Cell Distribution Width 14.3 % (11.5-14.5); White Blood Count 7.5 K/mm3 (4.5-10.0)
[2024-11-06 16:45] VITALS: BP 131/70; PULSE 64; RESP 16; TEMP 36.6; O2SAT 100
[2024-11-06 16:58] LABS: Alanine Aminotransferase 70 U/L (6-50); Albumin Level 3.9 g/dL (3.5-5.1); Alkaline Phosphatase 107 U/L (38-126); Anion Gap 6 mmol/L (4-12); Aspartate Amino Transferase 60 U/L (17-59); Bilirubin,Total 0.7 mg/dL (0.2-1.3); Blood Urea Nitrogen 25 mg/dL (9-20); Calcium 8.5 mg/dL (8.4-10.2); Carbon Dioxide 25 mmol/L (22-30); Chloride 104 mmol/L (98-107); Estimated CRCL calculation 57 ml/min; Estimated Glomerular Filt Rate 58; Glucose 227 mg/dL (65-110); Potassium 4.6 mmol/L (3.4-5.0); Sodium 135 mmol/L (137-145); Total Protein 6.8 g/dL (6.3-8.2)
[2024-11-06 17:01] LABS: Add Urine Microscopic? YES; Appearance Urine Clear (Clear); Bacteria Urine None Seen /hpf; Bilirubin Urine Negative (Negative); Blood Urine Negative (Negative); Color Urine Yellow (Yellow); Glucose Urine UA Negative (Negative); Ketones Urine Negative (Negative); Leukocyte Esterase Ur Negative LEU/UL (Negative); Nitrate Urine Negative (Negative); Non Pathogenic Casts 0-2; Protein Urine 1+ mg/dL (Negative); RBC Urine 0-2 /hpf (0-2); Specific Grav Ur 1.016 (1.001-1.035); Squamous Epithelial Cell Urine None Seen /hpf (Few); WBC Urine 0-5 /hpf (0-3); pH Urine 6.5 (5.0-9.0)
[2024-11-06 17:14] LABS: INR 1.4; Prothrombin Time 16.7 Seconds (11.1-14.7)
[2024-11-06 17:15] LABS: Partial Thromboplastin Time 34.5 Seconds (22.3-36.8)
--- OUTSIDE RECORDS SUMMARY | 2024-11-06 17:18 | XMS_ITS | Encounter Summary ---
Author Organization [facility] Address [address] [place] [address] Phone Care Team Providers Care Central Supply Clerk Name Role Phone Suresh Verma MD Unavailable [phone] Pao Allen RN Unavailable [phone] Tika Araujo MD Primary Care Provider [phone] Emmy Alicea Unavailable Unavailable Americo Mcneil MD Unavailable [phone] Korey Warren [facility] Unavailable Unavail able Encounter Details Date Type Department Care Team (Late st Contact Info) Description 08/30/2022 Orders Only [facility] Scanning, Provider Social History Tobacco Use Types Packs/Day Years Used Date Smoking Tobacco: Never Smokeless Tobacco: Never Alcohol Use Standard Drinks/Week Comments No 0 (1 standard drink = 0.6 oz pur e alcohol) AUDIT-C Answer Date Recorded Q1: How often do you have a drink containing alcohol? Never 05/20/2022 Q2: How many drinks containi ng alcohol do you have on a typical day when you are drinking? Patient does not drink Q3: How often do you have si x or more drinks on one occasion? Never 05/20/2022 Hunger Vital Sign Answer Date Recorded Within the past 12 months, y ou worried that your food would run out before you got the money to buy more. Never true 09/01/19 23 Within the past 12 months, t he food you bought just didn't last and you didn't have money to get more. Never true 08/31/2022 Sex and Gender Information Value Date Recorded Sex Assigned at Not on file Legal Sex Male 12:[address] Gender Identity Not on file Sexual Orientation Not on file documented as of this encounter Plan of Treatment Not on file documented as of this encounter Procedures Procedure Name Priority Date/Time Associated Diagnosis Comments SCAN - LABS 08/30/2022 documented in this encounter Results * SCAN - LABS (08/30/2022) us Provider Scanning Final Result documented in this encounter Visit Diagnoses Not on filedocumented in this encounter Additional Health Concerns Infection Onset Date Last Indicated Resolved Time 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 difficile suspected 08/24/2024 08/24/202408/24 10:35 PM CDT C. 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 documented as of this encounter Care Teams Central Supply Clerk Relationship Specialty Start Date End Date Tika Araujo MD PCP - General Nurse Practitioner 03/27/20 Americo Mcneil MD [address] [facility] [id number] [place] [address] PCP - Home Infusion Attending Infectious Diseases 10/15/24 Suresh Verma MD Transport Conductor Transplant 09/16/18 Pao Allen, RN VAD Coordinator Transplant 03/20/19 Emmy Alicea Primary Metal Baler Transplant 3/18/25 Korey Warren, [facility] Pharmacist Pharmacy 10/23/24 documented as of this encounter
--- OUTSIDE RECORDS SUMMARY | 2024-11-06 17:18 | XMS_ITS | Encounter Summary ---
Author Organization [facility] Address [address] [place] [address] Phone Care Team Providers Care Continuity Clerk Name Role Phone Suresh Verma MD Unavailable [phone] Pao Allen RN Unavailable [phone] Tika Araujo MD Primary Care Provider [phone] Emmy Alicea Unavailable Unavailable Americo Mcneil MD Unavailable [phone] Korey Warren [facility] Unavailable Unavail able Encounter Details Date Type Department Care Team (Late st Contact Info) Description 09/21/2022 Orders Only [facility] Scanning, Provider [...] on file 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 difficile suspected 08/24/2024 08/24/202408/24 10:35 PM CDT C. 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 documented as of this encounter Care Teams Continuity Clerk Relationship Specialty Start Date End Date Tika Araujo MD PCP - General Nurse Practitioner 03/27/20 Americo Mcneil MD [address] [facility] [id number] [place] [address] PCP - Home Infusion Attending Infectious Diseases 10/15/24 Suresh Verma MD Value Advisor Transplant 09/16/18 Pao Allen, RN VAD Coordinator Transplant 03/20/19 Emmy Alicea Primary Bus Trolley And Taxi Instructor Transplant 3/18/25 Korey Warren, [facility] Pharmacist Pharmacy 10/23/24 documented as of this encounter
--- OUTSIDE RECORDS SUMMARY | 2024-11-06 17:18 | XMS_ITS | Encounter Summary ---
Author Organization [facility] Address [address] [place] [address] Phone Care Team Providers Care Retail Visual Merchandiser Name Role Phone Suresh Verma MD Unavailable [phone] Pao Allen RN Unavailable [phone] Tika Araujo MD Primary Care Provider [phone] Emmy Alicea Unavailable Unavailable Americo Mcneil MD Unavailable [phone] Korey Warren [facility] Unavailable Unavail able Encounter Details Date Type Department Care Team (Late st Contact Info) Description 02/01/2023 Orders Only [facility] Scanning, Provider [...] the money to buy more. Never true 01/26/20 23 Within the past 12 months, t he food you bought just didn't last and you didn't have money to get more. 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 Gender Identity Not on file Sexual Orientation Not on file documented as of this encounter Plan of Treatment Not on file documented as of this encounter Procedures Procedure Name Priority Date/Time Associated Diagnosis Comments SCAN - LABS 02/01/2023 documented in this encounter Results * SCAN - LABS (02/01/2023) us Provider Scanning Edited Result - Final documented in this encounter Visit Diagnoses Not on filedocumented in this encounter Additional Health Concerns Infection Onset Date Last Indicated Resolved Time 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 difficile suspected 08/24/2024 08/24/202408/24 10:35 PM CDT C. 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 Primary Trial Court Judge Transplant 08/14/24 Korey Warren, [facility] Pharmacist Pharmacy 10/23/24 documented as of this encounter
--- OUTSIDE RECORDS SUMMARY | 2024-11-06 17:18 | XMS_ITS | Encounter Summary ---
Author Organization [facility] Address [address] [place] [address] Phone Care Team Providers Care Tube Lancer Name Role Phone Suresh Verma MD Unavailable [phone] Pao Allen RN Unavailable [phone] Tika Araujo MD Primary Care Provider [phone] Emmy Alicea Unavailable Unavailable Americo Mcneil MD Unavailable [phone] Korey Warren [facility] Unavailable Unavail able Encounter Details Date Type Department Care Team (Late st Contact Info) Description 10/21/2022 Orders Only [place] [facility] Scanning, Provider [...] on file 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 difficile suspected 08/24/2024 08/24/202408/24 10:35 PM CDT C. 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 documented as of this encounter Care Teams Tube Lancer Relationship Specialty Start Date End Date Tika Araujo MD PCP - General Nurse Practitioner 03/27/20 Americo Mcneil MD [address] [facility] [id number] [place] [address] PCP - Home Infusion Attending Infectious Diseases 10/15/24 Suresh Verma MD Entrepreneurial Finance Professor Transplant 09/16/18 Pao Allen, RN VAD Coordinator Transplant 03/20/19 Emmy Alicea Primary Lending Activities Supervisor Transplant 3/18/25 Korey Warren, [facility] Pharmacist Pharmacy 10/23/24 documented as of this encounter
--- OUTSIDE RECORDS SUMMARY | 2024-11-06 17:18 | XMS_ITS | Encounter Summary ---
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 Gender Identity Not on file Sexual Orientation [...] documented as of this encounter Care Teams Administrative Support Assistant Relationship Specialty Start Date End Date Tika Araujo MD PCP - General Nurse Practitioner 03/27/20 Americo Mcneil MD [address] [facility] [phone] [place] [address] PCP - Home Infusion Attending Infectious Diseases 10/15/24 Suresh Verma MD Vehicle Damage Appraiser Transplant 09/16/18 Pao Allen, RN VAD Coordinator Transplant 03/20/19 Emmy Alicea Primary Color Drum Worker Transplant 3/18/25 Korey Warren, [facility] Pharmacist Pharmacy 10/23/24 documented as of this encounter
--- OUTSIDE RECORDS SUMMARY | 2024-11-06 17:19 | XMS_ITS | Encounter Summary ---
Author Organization [facility] Address [address] [place] [address] Phone Care Team Providers Care Hr Coordinator Name Role Phone Suresh Verma MD Unavailable [phone] Pao Allen RN Unavailable [phone] Tika Araujo MD Primary Care Provider [phone] Emmy Alicea Unavailable Unavailable Americo Mcneil MD Unavailable [phone] Korey Warren [facility] Unavailable Unavail able Encounter Details Date Type Department Care Team (Late st Contact Info) Description 04/23/2020 Telephone [facility] Cardiology [address] [place] [address] Medical Office [address] [place] [address] Melani Bobby Social History Tobacco Use Types Packs/Day Years Used Date Smoking Tobacco: Never Smokeless Tobacco: Never Alcohol Use Standard Drinks/Week Comments No 0 (1 standard drink = 0.6 oz pur e alcohol) Sex and Gender Information Value Date Recorded Sex Assigned at Not on file 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 12/07/2012 12/06/2012 01/14/2021 5:00 AM CDT COVID: Suspected 08/23/2021 08/23/2021 08/23/2021 5:11 PM CDT COVID: Suspected 09/09/2021 09/09/2021 09/09/2021 6:12 PM CDT COVID19 09/09/2021 09/09/2021 09/22/2021 3:05 AM CDT COVID: Recovered Comment:Added based on recent COVID infection. 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 difficile suspected 08/24/2024 08/24/202408/24 10:35 PM CDT C. 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 documented as of this encounter Care Teams Hr Coordinator Relationship Specialty Start Date End Date Tika Araujo MD PCP - General Nurse Practitioner 03/27/20 Americo Mcneil MD [address] [facility] [phone] [place] [address] PCP - Home Infusion Attending Infectious Diseases 10/15/24 Suresh Verma MD Returns Supervisor Transplant 09/16/18 Pao Allen, RN VAD Coordinator Transplant 03/20/19 Emmy Alicea Primary Brace Maker Transplant 08/14/24 Korey Warren [facility] Pharmacist Pharmacy 10/23/24 documented as of this encounter
--- OUTSIDE RECORDS SUMMARY | 2024-11-06 17:19 | XMS_ITS ---
Author Organization [facility] Address [address] [place] [address] Phone Care Team Providers Care Personal Development Educator Name Role Phone Suresh Verma MD Unavailable [phone] Pao Allen RN Unavailable [phone] Tika Araujo MD Primary Care Provider [phone] Emmy Alicea Unavailable Unavailable Americo Mcneil MD Unavailable [phone] Korey Warren [facility] Unavailable Unavail able Home Infusion Status:Enrolled (Active) Start date:2024 Enrollment date:2024 Related service episodes:RxHI Anti-Infective - DALVANCE 1500 mg IV Every 14 Days (Active) Overview Cutover complete Lisa Mccormick 10/15/2024 12:39 PM Continued Care and Services Coordination
--- OUTSIDE RECORDS SUMMARY | 2024-11-06 17:19 | XMS_ITS | Encounter Summary ---
Author Organization [facility] Address [address] [place] [address] Phone Care Team Providers Care Sales Agent Food Vending Service Name Role Phone Suresh Verma MD Unavailable [phone] Pao Allen RN Unavailable [phone] Tika Araujo MD Primary Care Provider [phone] Emmy Alicea Unavailable Unavailable Americo Mcneil MD Unavailable Korey Warren [facility] Unavailable Unavail able Encounter Details Date Type Department Care Team (Late st Contact Info) Description 08/27/2022 Orders Only [place] [facility] Scanning, Provider [...] on file Legal Sex Male 12:11 AM VP RESEARCH Gender Identity Not on file Sexual Orientation Not on file documented as of this encounter Plan of Treatment Not on file documented as of this encounter Procedures Procedure Name Priority Date/Time Associated Diagnosis Comments SCAN - LABS 08/27/2022 documented in this encounter Results * SCAN - LABS (08/27/2022) us Provider Scanning Final Result documented in this encounter Visit Diagnoses Not on filedocumented in this encounter Additional Health Concerns Infection Onset Date Last Indicated Resolved Time 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 difficile suspected 08/24/2024 08/24/202408/24 10:35 PM CDT C. 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 documented as of this encounter Care Teams Sales Agent Food Vending Service Relationship Specialty Start Date End Date Tika Araujo MD PCP - General Nurse Practitioner 03/27/20 Americo Mcneil MD [address] [facility] [id number] [place] [address] PCP - Home Infusion Attending Infectious Diseases 10/15/24 Suresh Verma MD Director Of Financial Reporting Transplant 09/16/18 Pao Allen, RN VAD Coordinator Transplant 03/20/19 Emmy Alicea Primary Elevator Examiner Transplant 3/18/25 Korey Warren, [facility] Pharmacist Pharmacy 10/23/24 documented as of this encounter
--- OUTSIDE RECORDS SUMMARY | 2024-11-06 17:19 | XMS_ITS | Encounter Summary ---
Author Organization [facility] Address [address] [place] [address] Care Team Providers Care Core Composer Feeder Name Role Phone Suresh Verma MD Unavailable [phone] Pao Allen RN Unavailable [phone] Tika Araujo MD Primary Care Provider [phone] Emmy Alicea Unavailable Unavailable Americo Mcneil MD Unavailable [phone] Korey Warren [facility] Unavailable Unavail able Encounter Details Date Type Department Care Team (Late st Contact Info) Description 06/02/2021 Telephone [facility] Transplant Heart [address] [facility] [address] [phone] [place] [address] Erna Dent Social History Tobacco Use Types Packs/Day Years Used Date Smoking Tobacco: Never Smokeless Tobacco: Never Alcohol Use Standard Drinks/Week Comments No 0 (1 standard drink = 0.6 oz pur e alcohol) AUDIT-C Answer Date Recorded Q1: How often do you have a drink containing alc ohol? 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 Gender Identity Not on file Sexual Orientation Not on file documented as of this encounter Plan of Treatment Not on file documented as of this encounter Visit Diagnoses Not on filedocumented in this encounter Additional Health Concerns Infection Onset Date Last Indicated Resolved Time COVID: Suspected 08/23/2021 08/23/2021 08/23/2021 5:11 PM [...] documented as of this encounter Care Teams Core Composer Feeder Relationship Specialty Start Date End Date Tika Araujo MD PCP - General Nurse Practitioner 03/27/20 Americo Mcneil MD [address] [facility] [id number] [place] [address] PCP - Home Infusion Attending Infectious Diseases 10/15/24 Suresh Verma MD Enamel Applier Transplant 09/16/18 Pao Allen, RN VAD Coordinator Transplant 03/20/19 Emmy Alicea Primary Hollock Maker Transplant 08/14/24 Korey Warren, [facility] Pharmacist Pharmacy 10/23/24 documented as of this encounter
--- OUTSIDE RECORDS SUMMARY | 2024-11-06 17:19 | XMS_ITS | Clinical Summary ---
Author Organization [facility] [employer] Address [address] [place] [address] Care Team Providers Care Coil Inspector Name Role Phone Unavailable Primary Care Provider Unavailabl e Source Comments [facility],non-owned Affiliates and Associated Physician Practices is amultiple site organization consisting of ambulatory clinics and hospital sitesin [place], [place], [place] and [place]. This disclosure is being madepursuant to the Care Everywhere program and may not contain all information available regarding this patient. Last updated 18.[facility] [employer] Social History Tobacco Use Types Packs/Day Years Used Date Smoking Tobacco: Never Assessed Sex and Gender Information Value Date Recorded Sex Assigned at Not on file Legal Sex Male 8:06 AM PLATE AND WELD INSPECTOR Gender Identity Not on file Sexual Orientation Not on file Plan of Treatment Health Maintenance Due Date Last Done Comments HEPATITIS C SCREENING 10/01/1966 DTAP/TDAP/TD VACCINES (1 - Tdap) 10/06/1967 PNEUMOCOCCAL VACCINE 50+ (1 of 1 - PCV) 1998 ZOSTER VACCINE (1 of 2) 1998 Respiratory Syncytial Virus (RSV) Vaccine Pt: or over 60 yrs (1 - 1-dose 75+ series) 10/06/2023 COVID-19 VACCINE ( - 2023-2 5 season) 2024 DEPRESSION SCREENING 05/30/2024 INFLUENZA VACCINE (Season Ended) 2025 HEPATITIS B VACCINE Aged Out No longe r eligible based on patient's age to complete this topic HIB VACCINE Aged Out No longer eligi ble based on patient's age to complete this topic HPV VACCINE Aged Out No longer eligi ble based on patient's age to complete this topic MENINGOCOCCAL (Group B) VACC INE SHARED DECISION-MAKING Aged Out No longer eligibl e based on patient's age to complete this topic MENINGOCOCCAL GROUPS A/C/Y/W VACCINE Aged Out No longer eligible b ased on patient's age to complete this topic
--- OUTSIDE RECORDS SUMMARY | 2024-11-06 17:19 | XMS_ITS | Encounter Summary ---
Author Organization [facility] Address [address] [place] [address] Phone Care Team Providers Care Fine Wire Drawer Name Role Phone Suresh Verma MD Unavailable [phone] Pao Allen RN Unavailable [phone] Tika Araujo MD Primary Care Provider [phone] Emmy Alicea Unavailable Unavailable Americo Mcneil MD Unavailable [phone] Korey Warren [facility] Unavailable Unavail able Encounter Details Date Type Department Care Team (Late st Contact Info) Description 05/10/2024 Orders Only [facility] [facility] Scanning, Provider Social History Tobacco Use Types Packs/Day Years Used Date Smoking Tobacco: Never Passive Smoke Exposure: Never Smokeless Tobacco: Never Alcohol Use Standard Drinks/Week Comments No 0 (1 standard drink = 0.6 oz pur e alcohol) Social Connection and Isolation Panel [NHANES] A nswer Date Recorded In a typical week, how many times do you talk on the phone with family, friends, or neighbors? Patient declined 03/23/2023 How often do you get togethe r with friends or relatives? Patient declined 03/23/2023 How often do you attend spiritism or episcopal serv ices? Patient declined 03/23/2023 Do you belong to any clubs o r organizations such as spiritism groups, unions, fraternal or athletic groups, or school groups? Patient declined 03/23/2023 How often do you attend meet ings of the clubs or organizations you belong to? Patient declined 03/23/2023 Are you , , di vorced, , never , or living with a partner? Patient declined 03/23/2023 AUDIT-C Answer Date Recorded Q1: How often do you have a drink containing alcohol? Never 03/22/2023 Q2: How many drinks containi ng alcohol do you have on a typical day when you are drinking? Patient does not drink Q3: How often do you have si x or more drinks on one occasion? Never 03/22/2023 Overall Financial Resource Strain (CARDIA) Answe r Date Recorded How hard is it for you to pa y for the very basics like food, housing, medical care, and heating? Patient declined 03/23/2023 Hunger Vital Sign Answer Date Recorded Within the past 12 months, y ou worried that your food would run out before you got the money to buy more. Never true 07/04/19 24 Within the past 12 months, t he food you bought just didn't last and you didn't have money to get more. Never true 07/04/2023 PRAPARE - Transportation Answer Date Re corded In the past 12 months, has l ack of transportation kept you from medical appointments or from getting medications? Patient declined 03/23/2023 In the past 12 months, has l ack of transportation kept you from meetings, work, or from getting things needed for daily living? Patient declined 03/23/2023 Housing Stability Vital Sign Answer David e Recorded In the last 12 months, was t here a time when you were not able to pay the mortgage or rent on time? Patient refused 03/23/20 23 In the last 12 months, how many places have you lived? 0 03/23/2023 In the last 12 months, was t here a time when you did not have a steady place to sleep or slept in a penitentiary (including now)? Patient refused 03/23/2023 Personal Safety Answer Date Recorded Have you ever been in or are you currently in a harmful physical or emotional relationship or is someone making you feel afraid or unsafe? 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 difficile suspected 08/24/2024 08/24/202408/24 10:35 PM CDT C. 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 documented as of this encounter Care Teams Fine Wire Drawer Relationship Specialty Start Date End Date Tika Araujo MD PCP - General Nurse Practitioner 03/27/20 Americo Mcneil MD [address] [facility] [id number] [place] [address] PCP - Home Infusion Attending Infectious Diseases 10/15/24 Suresh Verma MD Sql Ssrs Ssis Developer Transplant 09/16/18 Pao Allen, RN VAD Coordinator Transplant 03/20/19 Emmy Alicea Primary Groover And Striper Operator Transplant 08/14/24 Korey Warren [facility] Pharmacist Pharmacy 10/23/24 documented as of this encounter
--- OUTSIDE RECORDS SUMMARY | 2024-11-06 17:19 | XMS_ITS | Encounter Summary ---
Author Organization [facility] Address [address] [place] [address] Phone Care Team Providers Care Director Of Pediatric Rehabilitation Name Role Phone Suresh Verma MD Unavailable [phone] Pao Allen RN Unavailable [phone] Tika Araujo MD Primary Care Provider [phone] Emmy Alicea Unavailable Unavailable Americo Mcneil MD Unavailable [phone] Korey Warren [facility] Unavailable Unavail able Reason for Visit * Reason Onset Date Comments OPAT 05/17/2022 Encounter Details Date Type Department Care Team (Late st Contact Info) Description 05/17/[address] [facility] Infectious Diseases [address] [place] [address] Sherman Sanchez, Paolo OPAT Social History Tobacco Use Types Packs/Day Years [...] more drinks on one occasion? 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 Never 05/20/2022 7:25 AM Tia Busch RN Q2: How many drinks containing alcohol do you have on a typical day when you are drinking? Patient does not drink 05/20/2022 7:25 AM Tia Busch RN Q3: How often do you have six or more drinks on one occasion? Never 05/20/2022 7:25 AM Tia Busch RN documented as of this encounter Plan of [...] documented as of this encounter Care Teams Director Of Pediatric Rehabilitation Relationship Specialty Start Date End Date Tika Araujo MD PCP - General Nurse Practitioner 03/27/20 Americo Mcneil MD [address] [id number] [place] [address] PCP - Home Infusion Attending Infectious Diseases 10/15/24 Suresh Verma MD Cost Reduction Engineer Transplant 09/16/18 Pao Allen, RN VAD Coordinator Transplant 03/20/19 Emmy Alicea Primary Senior Sql Database Developer Transplant 08/14/24 Korey Warren [facility] Pharmacist Pharmacy 10/23/24 documented as of this encounter
--- OUTSIDE RECORDS SUMMARY | 2024-11-06 17:19 | XMS_ITS ---
Author Organization [facility] Virtual Care Address [address] [place] [id number] Phone Care Team Providers Care Toe Laster Name Role Phone Suresh Verma MD Unavailable [phone] Pao Allen RN Unavailable [phone] Tika Araujo MD Primary Care Provider [phone] Emmy Alicea Unavailable Unavailable Americo Mcneil MD Unavailable Korey Warren [facility] Unavailable Unavail able [facility] Anti-Infective - DALVANCE 1500 mg IV Every 14 Days Status:Enrolled (Active) Start date:2024 Enrollment date:2024 Linked medications:dalbavancin HCl (Active) Related program episode:Home Infusion (Active) Overview Cutover complete Case Team Name Relationship Phone Korey Warren [facility](Responsible Staff) Pharm acist Continued Care and Services Coordination This section includes services coordinated for [facility] Anti-Infective - DALVANCE 1500 mg IV Every 14 Days. Home Medical Care Name Services Phone [facility] Home Infusion a nd Injection [phone]
--- OUTSIDE RECORDS SUMMARY | 2024-11-06 17:19 | XMS_ITS | Encounter Summary ---
Author Organization [facility] Address [address] [place] [address] Phone Care Team Providers Care Consumer Recruiter Name Role Phone Suresh Verma MD Unavailable [phone] Pao Allen RN Unavailable [phone] Tika Araujo MD Primary Care Provider [phone] Emmy Alicea Unavailable Unavailable Americo Mcneil MD Unavailable Korey Warren [facility] Unavailable Unavail able Encounter Details Date Type Department Care Team (Latest Contact Info) Description 03/01/2024 Orders Only [facility] Scanning, Provider Social History Tobacco Use Types [...] declined 03/23/2023 How often do you attend lutheran or orthodox serv ices? Patient declined 03/23/2023 Do you belong to any clubs o r organizations such as lutheran groups, unions, fraternal or athletic groups, or [...] place to sleep or slept in a mcc (including now)? Patient refused 03/23/2023 Personal Safety Answer Date Recorded Have you ever been in or are you currently in a harmful physical or emotional relationship or is someone making you feel afraid or unsafe? 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 difficile suspected 08/24/2024 08/24/202408/24 10:35 PM CDT C. 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
--- OUTSIDE RECORDS SUMMARY | 2024-11-06 17:20 | XMS_ITS | Referral Summary ---
Author Organization [facility] Virtual Care Address [address] [place] [address] Phone Care Team Providers Care Aerial Photograph Interpreter Name Role Phone Suresh Verma MD Unavailable [phone] Pao Allen RN Unavailable [phone] Tika Araujo MD Primary Care Provider [phone] Emmy Alicea Unavailable Unavailable Americo Mcneil MD Unavailable [phone] Korey Warren [facility] Unavailable Unavail able Encounters Date Type Department Care Team Description 11/06/2024 Anticoagulation Telephone Call [facility] Transplant Heart [address] [facility] [address] Mailop [phone] [place] [address] Pao Allen, RN 11/02/2024 Anticoagulation Telephone Call [facility] Transplant Heart [address] [facility] [address] Mailstop [phone] [place] [address] Pao Allen, RN 10/25/2024 Documentation [facility] Infectious Diseases [address] [place] [address] [address] [place] [address] Shanelle Sanches, SANKET 10/25/2024 Orders Only [facility] Transplant Heart [address] [place] [address] [address] Mailstop 34-02-056 [place] [address] Pao Allen, RN 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) 10/25/2024 10:00 AM CDT Office Visit [facility] Cardiology [address] [facility] Office Building 3 [address] [place] [phone] Ischemic cardiomyopathy (Primary Dx); Chronic systolic heart failure (HCC); Transaminitis; LVAD (left ventricular assist device) present ICM, end-stage systolic CHF s/p HM3 (2014) 10/25/2024 9:20 AM CDT Office Visit [facility] Infectious Diseases [facility] Office Building [address] [place] [phone] Americo Mcneil MD 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); Eosinophilia, unspecified type 10/23/2024 Anticoagulation Telephone Call [facility] Transplant Heart [address] [place] [address] [address] [facility] [phone] [place] [address] Pao Allen RN 10/23/2024 Home Infusion [facility] [address] [place] [address] Edwina Robb [facility] Infection and inflammatory reaction due to cardiac device, implant, and graft, sequela (Primary Dx); Bacterial intestinal infection; Presence of heart assist device (HCC) 10/18/2024 Orders Only [facility] [address] [place] [address] Drive [address] [place] [phone] Korey Warren RPh 10/18/2024 Telephone [facility] Transplant Heart [address] [place] [address] [address] Mailstop 81-11-360 [place] [address] Steffany Reyes 10/15/2024 Orders Only [facility] [address] [place] [address] Drive [address] [place] [address] Korey Warren RPh 10/15/2024 11:00 AM CDT Procedure visit [facility] Dermatology [address] [facility] Outpatient Health [address] [place] [address] Kevin Dodd MD Actinic keratosis (Primary Dx); 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; Basal cell carcinoma (BCC) of left side of neck 10/12/2024 Telephone [facility] Infectious Diseases [address] [facility] [address] [place] [phone] Shanelle Sacnhes, SANKET 10/11/2024 Anticoagulation Telephone Call [facility] Transplant Heart [address] [facility] [address] Mailstop [phone] [place] [address] Pao Allen, SANKET 10/11/2024 Documentation [facility] Infectious Diseases [address] [facility] [address] [place] [address] Shanelle Sanches, SANKET 10/04/2024 Telephone [facility] Transplant Heart [address] [facility] [address] Mailstop [phone] [place] [address] Faby Macdonald 10/02/2024 Anticoagulation Telephone Call [facility] Transplant Heart [address] [facility] [address] Mailstop [phone] [place] [address] Pao Allen, RN 10/02/2024 Telephone [facility] Transplant Heart [address] [facility] [address] Mailstop [phone] [place] [address] Karoline Álvarez 10/01/2024 Telephone [facility] Infectious Diseases [address] [facility] [address] [place] [phone] Destinee Peraza RMA 10/01/2024 Telephone [facility] Dermatology [address] [facility] Outpatient Health [address] [place] [phone] Tin Pinedo PA 09/28/[address] [facility] [address] [place] [address] [address] [place] [address] Korey Warren RP 09/28/2024 Results Follow-Up [facility] Dermatology [address] [facility] [address] [place] [phone] Tin Pinedo PA Surgical pathology 09/27/2024 Documentation [facility] Infectious Diseases [address] [facility] [address] [place] [address] Thelma Desai Lab Results 09/26/2024 Orders Only [facility] [address] [place] [address] Tin Pinedo PA Neoplasm of skin 09/25/2024 Telephone [facility] Infectious Diseases [address] [facility] Medical Office Building 3 [address] [place] [phone] Americo Mcneil MD 09/25/2024 2:45 PM CDT Office Visit [facility] Dermatology [address] [facility] Outpatient Health [address] [place] [phone] Tin Pinedo PA Actinic keratosis (Primary Dx); Neoplasm of skin; Inflamed seborrheic keratosis; Multiple benign nevi; Seborrheic keratosis; Seborrheic dermatitis; History of nonmelanoma skin cancer 09/24/2024 Anticoagulation Telephone Call [facility] Transplant Heart [address] [facility] [address] Mailstop [phone] [place] [address] Estrella Arvizu RN 09/24/2024 Telephone [facility] Transplant Heart [address] [place] [address] [address] Mailstop [phone] [place] [address] Karoline Álvarez 09/21/2024 Telephone [facility] Transplant Heart [address] [facility] [address] Mailstop [phone] [place] [address] Karoline Álvarez 09/21/2024 Telephone [facility] Infectious Diseases [address] [facility] [address] [place] [phone] Destinee Peraza RMA 09/20/2024 Documentation [facility] Infectious Diseases [address] [facility] [address] [place] [address] Thelma Desai Progress/Monitoring 09/20/2024 1:52 PM CDT - 09/20/2024 11:59 PM CDT Hospital Encounter [facility] Radiology [address] [facility] [address] [place] [address] Left knee pain, unspecified chronicity Discharge Disposition: Discharge to home or self care 09/20/2024 2:30 PM CDT Office Visit [facility] Orthopaedic Surgery [address] [facility] Medical Office Building 4 [address] [place] [address] Tammy Zavala PA Primary osteoarthritis of left knee (Primary Dx); Knee effusion, left 09/18/2024 Anticoagulation Telephone Call [facility] Transplant Heart [address] [place] [address] 34[address] Mailstop [phone] [place] [address] Pao Allen, RN 09/17/2024 Telephone [facility] Infectious Diseases [address] [place] [address] [address] [place] [phone] [place] Guerrero [facility] 09/14/[address] [facility] Home Care Services [address] [facility] [address] [place] [address] Ashlie Jorge [facility] 09/11/2024 Documentation [facility] Infectious Diseases [address] [place] [address] 100 [place] [address] Thelma Desai Progress/Monitoring 09/11/2024 Anticoagulation Telephone Call [facility] Transplant Heart [address] [place] [address] [address] Mailstop [phone] [place] [address] Pao Allen, RN 09/10/2024 Telephone [facility] Transplant Heart [address] [place] [address] 34[address] Mailstop [phone] [place] [address] Isaiah Miranda 09/07/2024 Documentation [facility] Infectious Diseases [address] [facility] [address] [place] [phone] Thelma Desai Opayennifer Progress/Monitoring 09/07/2024 Anticoagulation Telephone Call [facility] Transplant Heart [address] [facility] [address] Mailstop [phone] [place] [address] Pao Allen, RN 09/03/[address] [facility] Home Care Services [address] [facility] [address] [place] [address] Korey Warren [facility] 09/03/2024 SHOP/CHAP Initial Eligibility Review [facility] OP CASE MANAGEMENT [address] [place] [address] Erin Franco RN 08/23/2024 4:10 PM CDT - 08/31/2024 4:35 PM CDT Hospital Encounter [facility] [address] [place] [address] Dejan Braxton MD [place], Justin Curtis, MD PhD Lower GI bleed (Primary Dx); LVAD (left ventricular assist device) present (HCC); Warfarin anticoagulation; LVAD (left ventricular assist device) present ICM, end-stage systolic CHF s/p HM3 (2014) Discharge Disposition: Discharge to home or self care 08/30/2024 Telephone [facility] Cardiology [address] [place] [address] 8[address] [place] [address] [place] [address] Marlene Ivy 08/23/2024 Telephone [facility] Transplant Heart [address] [facility] [address] Mailstop [phone] [place] [address] Isaiah Miranda 08/21/2024 Anticoagulation Telephone Call [facility] and [facility] Transplant Heart [address] [facility] [address] Mailstop [phone] [place] [address] Pao Allen, RN 08/21/2024 Anticoagulation Telephone Call [facility] and [facility] Transplant Heart [address] [facility] [address] Mailstop 24-67-902 [place] [address] Estrella Arvizu SANKET 08/21/2024 Documentation [facility] Infectious Diseases [address] [facility] [address] [place] [address] Thelma Desai Progress/Monitoring 08/20/2024 Telephone [facility] Gastroenterology [address] [place] [address] 12[address] [place] [address] [place] [address] Paola Talbert LPN Update 08/16/2024 Documentation [facility] Infectious Diseases [address] [facility] [address] [place] [address] Thelma Desai Progress/Monitoring 08/14/2024 Anticoagulation Telephone Call [facility] Transplant Heart [address] [place] [address] [address] Mailstop [phone] [place] [address] Pao Allen RN 08/14/[address] [facility] Home Care Services [address] [facility] [address] [place] [address] Korey Warren [facility] 08/09/2024 Documentation [facility] Infectious Diseases [address] [facility] [address] [place] [phone] Thelma Desai Progress/Monitoring 08/07/2024 Anticoagulation Telephone Call [facility] Transplant Heart [address] [place] [address] [address] Mailstop [phone] [place] [address] Pao Allen, RN from Last 3 Months Allergies Active Allergy Reactions Criticality Noted Date Comments Ampicillin-Sulbactam Rash,Diarrhea,Itchi n g,Hives High 09/04/2021 Methotrexate Other (See comments) Low 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 Sulfa (Sulfonamide Antibiotics) Other (See comments) High Liver shuts down Vancomycin Other (See comments),Flushing (skin),Itching,Nause a only Medium 11/05/2021 Red man Medications levothyroxine (SYNTHROID, LEVOTHROID) 75 mcg tablet Take 1 tablet (75 mcg total) by mouth daily 2 018 Active PARoxetine (PAXIL) 20 mg tablet Take 1 tablet (20 mg total) by mouth daily 2 018 Active BD ULTRA-FINE SHORT PEN NEEDLE 31 gauge x 5/16 needle USE DAILY WITH NOVOLOG [address] (PROTONIX) 40 mg EC tablet Take 1 tablet (40 mg total) by mouth daily Active BASAGLAR KWIKPEN U-100 INSULIN 100 unit/mL (3 mL) insulin pen INJECT 30 UNITS SUBCUTANEOUSLY AT BEDTIME 0 Active acetaminophen (TYLENOL) 325 mg tablet Take 2 tablets (650 mg total) by mouth every 6 (six) hours as needed Active allopurinol (ZYLOPRIM) 100 mg tablet Take 1 tablet (100 mg total) by mouth daily 1 Active multivitamin tablet,chewable Take 1 tablet by mouth daily Active pancrelipase (CREON) 24,000 units of lipase capsule Take 2 capsules by mouth 3 (three) times a day with meals Active blood glucose diagnostic (glucose blood) strip TESTS 3 TIMES A DAY Active ferrous sulfate 325 mg (65 mg of elemental iron) tablet Take 1 tablet (325 mg total) by mouth daily with breakfast - Take with Vit C to help with absorption Active NovoLOG 100 unit/mL (3 mL) pen for injection INJECT 6-20 UNITS INTO THE SKIN NEEDED. PER SLIDING SCALE Active heparin sodium,porcine (HEPARIN LOCK FLUSH IV) Infuse 500 Units into a venous catheter daily Active nitroglycerin (NITROSTAT) 0.[address] 1 tablet (0.4 mg total) under the tongue every 5 (five) minutes as needed for chest pain 90 tablet 5 022 Active semaglutide (RYBELSUS) 14 mg tablet Take 1 tablet (14 mg total) by mouth daily 023 Active tamsulosin (FLOMAX) 0.4 mg extended release capsule Take 1 capsule (0.4 mg total) by mouth daily 023 Active levoFLOXacin (LEVAQUIN) 750 mg tabletIndicatio ns:Other (complete free text reason below),chronic drive line infection, on suppressive therapy Take 1 tablet (750 mg total) by mouth every other day 90 tablet 11/22/2 024 Active traZODone (DESYREL) 50 mg tablet Take 1 tablet (50 mg total) by mouth nightly 90 tablet 3 024 2024 Active atorvastatin (LIPITOR) 40 mg tablet Take 1 tablet (40 mg total) by mouth daily 30 tablet 1 Active isosorbide mononitrate ER (IMDUR) 60 mg 24 hr tablet Take 1 tablet (60 mg total) by mouth daily 30 tablet 1 Active carvediloL (COREG) 12.5 mg tablet Take 1 tablet (12.5 mg total) by mouth 2 (two) times a day with meals 180 tablet 3 025 2025 Active torsemide (DEMADEX) 20 mg tablet Take 1 tablet (20 mg total) by mouth daily as needed (weight gain, swelling) 30 tablet 11 025 2025 Active ADMELOG 100 unit/mL pen for injection as needed Active dalbavancin (DALVANCE) 500 mg solution Infuse 75 mL (1,500 mg total) into a venous catheter every 2 (two) weeks Active sacubitriL-vals rich (ENTRESTO) 97-103 mg tabletIndicatio ns:chronic heart failure Take 1 tablet by mouth 2 (two) times a day 60 tablet 11 Active spironolactone (ALDACTONE) 25 mg tablet Take 1 tablet (25 mg total) by mouth daily 30 tablet 11 025 2025 Active fidaxomicin (DIFICID) tabletIndicatio ns:Clostridioid es difficile infection Take 1 tablet (200 mg total) by mouth 2 (two) times a day For 6 more doses 7 tablet Active HYDROcodone-tracey taminophen (NORCO) 5-325 mg per tablet TAKE 1 TABLET BY MOUTH EVERY 6 HOURS NEEDED FOR ACUTE PAIN, LESS THAN 3 DAYS SUPPLY Active tacrolimus (PROTOPIC) 0.1 % ointment Apply topically 2 (two) times a day as needed (rash face) 30 g 2 Active ketoconazole (NIZORAL) 2 % shampoo Apply topically daily Apply to damp skin on face and scalp, lather, leave on 5 minutes, and rinse 120 mL Active hydrocortisone 2.5 % cream Apply topically 2 (two) times a day as needed for rash (on face) 30 g Active dalbavancin (DALVANCE) 500 mg solutionIndicat ions:Bacterial intestinal infection,Infec tion and inflammatory reaction due to cardiac device, implant, and graft, sequela,Presenc e of heart assist device ([facility]) Infuse 75 mL (1,500 mg total) IV every 14 (fourteen) days . TOTAL DOSE = 3 VIALS. Using included 500ml bag of dextrose 5%, withdraw 25 ml and add to each vial of Dalbavancin. Once dissolved, withdraw a total volume of 75ml (1500mg) from the vials and add back to the 500ml bag of dextrose 5%. Infuse as directed on the bag label. FLUSH BEFORE AND AFTER EACH INFUSION WITH DEXTROSE FLUSH ONLY 225 mL 8 2025 Active sodium chloride 0.9% flush syringeIndicati ons:Bacterial intestinal infection,Infec tion and inflammatory reaction due to cardiac device, implant, and graft, sequela,Presenc e of heart assist device ([facility]) Infuse 10 mL IV as needed for line care 85627 mL 2025 Active heparin 100 unit/mL syringeIndicati ons:Bacterial intestinal infection,Infec tion and inflammatory reaction due to cardiac device, implant, and graft, sequela,Presenc e of heart assist device ([facility]) Infuse 5 mL (500 Units total) IV as needed (line care) 32004 mL 2025 Active dextrose 5 % in water (dextrose 5% water) 5% flushIndication s:Bacterial intestinal infection,Infec tion and inflammatory reaction due to cardiac device, implant, and graft, sequela,Presenc e of heart assist device ([facility]) Infuse 10 mL IV as needed (before and after Dalbavancin infusion) NOTE: Dalbavancin is not compatible with normal saline. 20 mL 11 2025 Active dextrose 5% solutionIndicat ions:Bacterial intestinal infection,Infec tion and inflammatory reaction due to cardiac device, implant, and graft, sequela,Presenc e of heart assist device (HCC) Infuse 500 mL IV as directed . After adding 1500 mg (75 ml) of Dalbavancin to 500 ml bag of dextrose 5% (D5W) infuse over a minimum of 30 minutes rate flow tubing set on WIDE OPEN every 2 weeks. START INFUSION WITHIN 4 HOURS OF MIXING 1500 mL 11 025 2025 Active warfarin (COUMADIN) 3 mg tabletIndicatio ns:Left Ventricular Assist Device 4 mg daily; 2 mg tue/tue 025 Active warfarin (COUMADIN) 4 mg tabletIndicatio ns:Left Ventricular Assist Device 4 mg daily, 2 mg tue/tue 025 Active warfarin (COUMADIN) 2 mg tablet TAKE 2 TABLETS (4 MG TOTAL) BY MOUTH DAILY 5 MG DAILY EXCEPT 4 MG TUE//Tue Active ustekinumab (STELARA) injection Inject 0.5 mL (45 mg total) under the skin every 3 (three) months 2021 Discontinued sodium chloride 0.9% injection Infuse 10 mL into a venous catheter as needed for line care 2024 Discontinued(D uplicate order) warfarin (COUMADIN) 3 mg tabletIndicatio ns:Left Ventricular Assist Device 4 mg daily; 3 mg tue/ 025 2024 Discontinued warfarin (COUMADIN) 4 mg tabletIndicatio ns:Left Ventricular Assist Device 4 mg daily; 3 mg tue/ 025 2024 Discontinued warfarin (COUMADIN) 4 mg tabletIndicatio ns:Left Ventricular Assist Device 4 mg daily 025 2024 Discontinued warfarin (COUMADIN) 3 mg tabletIndicatio ns:Left Ventricular Assist Device 4 mg daily; 025 2024 Discontinued dextrose 5% solutionIndicat ions:Bacterial intestinal infection,Infec tion and inflammatory reaction due to cardiac device, implant, and graft, sequela,Presenc e of heart assist device (HCC) Infuse 500 mL IV as directed . After adding 1500 mg (75 ml) of Dalbavancin to 500 ml bag of dextrose 5% (D5W) infuse over a minimum of 30 minutes at 1000 ml/hr with pole mounted pump or rate flow tubing set on WIDE OPEN every 2 weeks. START INFUSION WITHIN 4 HOURS OF MIXING 1500 mL 11 025 2024 Discontinued Active Problems Patient Care Coordination No te Formatting of this note migh t be different from the original. Please remember to scribe in the Absolute Eosinophils results from the CBC panels drawn at external facilities. 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 difficile colitis 08/26/2024 Assessment & Plan (08/31/2024 8:34 AM CDT): -stool sample C diff positive -placed on contact isolation -started fidaxomicin 200 mg Q12h 08/25 (10 day course, end date 09/04) -transplant ID consult placed -appreciate colorectal surgery recommendations --> no surgical intervention at this time, ok to advance to regular diet, agree with antibiotic therapy per primary team, CRS will sign off, no follow-up needed with our service -tolerating regular diet -pt reports significant decrease in stool frequency with some remaining abd tenderness -no BM x 2 days>>adding senna today; no GI discomfort, appetite good Assessment & Plan (08/30/2024 1:19 PM CDT): -stool sample C diff positive -placed on contact isolation -started fidaxomicin 200 mg Q12h 08/25 (10 day course, end date 09/04) -transplant ID consult placed -appreciate colorectal surgery recommendations --> no surgical intervention at this time, ok to advance to regular diet, agree with antibiotic therapy per primary team, CRS will sign off, no follow-up needed with our service -tolerating regular diet -pt reports significant decrease in stool frequency with some remaining abd tenderness Assessment & Plan (08/29/2024 9:07 AM CDT): -stool sample C diff positive -placed on contact isolation -started fidaxomicin 200 mg Q12h 08/25 (10 day course, end date 09/04) -transplant ID consult placed -appreciate colorectal surgery recommendations -started clear liquids 08/27>>advancing diet as tolerated -pt reports significant decrease in stool frequency with some remaining abd tenderness Assessment & Plan (08/26/2024 12:44 PM CDT): -stool sample C diff positive -placed on contact isolation -started fidaxomicin 200 mg Q12h 08/25 -transplant ID consult placed -appreciate colorectal surgery recommendations -bowel rest with IV fluid hydration per surgery recommendations Lower GI bleed 08/23/2024 Assessment & Plan (08/31/2024 8:41 AM CDT): Reports BRBPR x5 days, assoc w/ RLQ pain. Prev admitted for similar w/ flex sig 05/29/24 showing ulcerated/pseudomembrane covered mucosa -> biopsy w/ acute pseudomembranous proctocolitis with adjacent ischemia-type changes. Suspected colonic ischemia was etiology of bleed. On admit, AF, HDS. Hgb 11.2 (stable), lactate wnl. CT AP w/ New bowel wall thickening of the rectum and sigmoid likely proctocolitis, no active extrav GIB. -started on CTX, flagyl in ED -- stopped -colorectal surgery consulted -- signed off -pt reports no bloody stools since 08/27 am, 08/28 had a smear of stool on his pad with no evidence of bleeding -was on bowel rest since 08/24, started clear liquids 08/27, progressed to regular diet on 08/29 -s/p IVFs while npo -GI consulted--no plans for further endoscopic evaluation at this time as there is no value to further biopsies or visualization given recent flex sig suggested ischemic colitis -restarted anticoagulation 08/28, monitor closely for bleeding -stopped asa -trend CBC -- H&H stable, no signs of bleeding -scheduled bowel reg - avoid constipation>>no BM x 2 days >>increasing bowel regimen today Assessment & Plan (08/30/2024 1:32 PM CDT): Reports BRBPR x5 days, assoc w/ RLQ pain. Prev admitted for similar w/ flex sig 05/29/24 showing ulcerated/pseudomembrane covered mucosa -> biopsy w/ acute pseudomembranous proctocolitis with adjacent ischemia-type changes. Suspected colonic ischemia was etiology of bleed. On admit, AF, HDS. Hgb 11.2 (stable), lactate wnl. CT AP w/ New bowel wall thickening of the rectum and sigmoid likely proctocolitis, no active extrav GIB. -started on CTX, flagyl in ED -- stopped -colorectal surgery consulted -- signed off -pt reports no bloody stools since 08/27 am, 08/28 had a smear of stool on his pad with no evidence of bleeding -was on bowel rest since 08/24, started clear liquids 08/27, progressed to regular diet on 08/29 -s/p IVFs while npo -GI consulted--no plans for further endoscopic evaluation at this time as there is no value to further biopsies or visualization given recent flex sig suggested ischemic colitis -restarted anticoagulation 08/28, monitor closely for bleeding -stopped asa -trend CBC -- H&H stable, no signs of bleeding -scheduled bowel reg - avoid constipation Assessment & Plan (08/29/2024 9:08 AM CDT): Reports BRBPR x5 days, assoc w/ RLQ pain. Prev admitted for similar w/ flex sig 05/29/24 showing ulcerated/pseudomembrane covered mucosa -> biopsy w/ acute pseudomembranous proctocolitis with adjacent ischemia-type changes. Suspected colonic ischemia was etiology of bleed. On admit, AF, HDS. Hgb 11.2 (stable), lactate wnl. CT AP w/ New bowel wall thickening of the rectum and sigmoid likely proctocolitis, no active extrav GIB. -started on CTX, flagyl in ED -> stopped -Colorectal surgery consulted--no surgical intervention at this time -pt reports no bloody stools since 08/27 am, 4 had a smear of stool on his pad with no evidence of bleeding -was on bowel rest since 08/24, started clear liquids 08/27 -s/p IVFs while npo -GI consulted--no plans for further endoscopic evaluation at this time as there is no value to further biopsies or visualization given recent flex sig suggested ischemic colitis -restarted anticoagulation 08/28, monitor closely for bleeding -stopped asa -trend CBC, type and screen -scheduled bowel reg - avoid constipation Assessment & Plan (08/26/2024 12:43 PM CDT): Reports BRBPR x5 days, assoc w/ RLQ pain. Prev admitted for similar w/ flex sig 05/29/24 showing ulcerated/pseudomembrane covered mucosa -> biopsy w/ acute pseudomembranous proctocolitis with adjacent ischemia-type changes. Suspected colonic ischemia was etiology of bleed. On admit, AF, HDS. Hgb 11.2 (stable), lactate wnl. CT AP w/ New bowel wall thickening of the rectum and sigmoid likely proctocolitis, no active extrav GIB. -started on CTX, flagyl in ED -> stopped -Colorectal surgery consulted--no surgical intervention at this time -per CRS bowel rest for one more day -continue IV hydration w/ LR @50ml/hr -GI consulted--no plans for further endoscopic evaluation at this time as there is no value to further biopsies or visualization given recent flex sig suggested ischemic colitis -trend CBC, type and screen -scheduled bowel reg - avoid constipation Assessment & Plan (08/24/2024 10:43 AM CDT): Reports BRBPR x5 days, assoc w/ RLQ pain. Prev admitted for similar w/ flex sig 05/29/24 showing ulcerated/pseudomembrane covered mucosa -> biopsy w/ acute pseudomembranous proctocolitis with adjacent ischemia-type changes. Suspected colonic ischemia was etiology of bleed. On admit, AF, HDS. Hgb 11.2 (stable), lactate wnl. CT AP w/ New bowel wall thickening of the rectum and sigmoid likely proctocolitis, no active extrav GIB. -started on CTX, flagyl in ED -> cont for now -GI consult made- await recommendations before feeding -trend CBC, type and screen -scheduled bowel reg - avoid constipation Assessment & Plan (08/24/2024 2:51 AM CDT): Reports BRBPR x5 days, assoc w/ RLQ pain. Prev admitted for similar w/ flex sig 05/29/24 showing ulcerated/pseudomembrane covered mucosa -> biopsy w/ acute pseudomembranous proctocolitis with adjacent ischemia-type changes. Suspected colonic ischemia was etiology of bleed. On admit, AF, HDS. Hgb 11.2 (stable), lactate wnl. CT AP w/ New bowel wall thickening of the rectum and sigmoid likely proctocolitis, no active extrav GIB. -started on CTX, flagyl in ED -> cont for now -GI c/s in AM -trend CBC -scheduled bowel reg - avoid constipation Hypertension, essential 05/27/2024 Assessment & Plan (08/31/2024 8:50 AM CDT): -elevated BP's this admission -increased entresto to mid dose -added parveen 25mg -Cont Imdur ER 60 but increase carvedilol to 25mg bid Assessment & Plan (05/27/2024 2:51 AM PROCESSING SPEC): -Home regimen: Entresto, coreg and imdur. -hold these iso orthostasis; re-introduce as tolerated Orthostasis 05/27/2024 Assessment & Plan (05/27/2024 5:39 AM PROCESSING SPEC): Presented with orthostatic symptoms while at home while straining on toilet. Per ED orthostatics positive on arrival ; SBP improved 99 to 120s after 500cc bolus in the ED. Both patient and felt he had improved. Of note patient has been eating/drinking well; denies infectious symptoms. Did not take recent torsemide doses but did take nitroglycerin x2 day before presentation as well as day before that. Given initial rapid improvement suspected dehydration and medication side effect (on multiple antihypertensives + nitroglycerin). Low concern for infection at this time. However with GI bleed overnight this is likely contributing as well. - s/p vancomycin in ED - GI consultation for GI bleed - hold entresto; coreg; imdur for now; re-introduce slowly pending stability and GI evaluation - defer further broad spectrum abx at this time given clinical stability and improvement with fluids; though will f/u BCx GI bleed 05/27/2024 Assessment & Plan (06/05/2024 11:44 AM PROCESSING SPEC): Admitted with BRBPR and near syncope, Hgb 11.6 on admission, Hgb dropped to 9.4 in just couple days. Held aspirin and warfarin on admission 2/2 BRBPR. -S/p IV iron on 05/27 -Gastroenterology consulted for evaluation of rectal bleeding -S/p flex sigmoidoscopy on 05/29: large stool burden in rectum and sigmoid colon, friable rectal mucosa-biopsy sent -Rectosigmoid colon biopsy: acute pseudomembranous proctocolitis with adjacent ischemia-type changes, no viral cytopathic changes or infectious microorganisms identified -Hgb stable -Aspirin remains on hold -Continue bowel regimen -Continue pantoprazole 40 mg daily -Encourage OOB -Guaiac stools -Follow daily CBCs GI sign off recommendations: -CTM bleeding. If worsening at any point, or persistence at 2 weeks or so, may need re-evaluation. -Aggressive bowel regimen to prevent constipation which would risk exacerbating his colopathy-titrate to 1-2 soft, easy to pass stools daily. -Defer consideration of bidirectional endoscopy for normocytic anemia with equivocal iron studies to outpatient. Current mucosal injury is not conducive to diagnostic scope for ELISEO. Patient is aware of this consideration. -GI service to follow up on pathology from sigmoidoscopy. Assessment & Plan (06/04/2024 11:42 AM PROCESSING SPEC): Admitted with BRBPR and near syncope, Hgb 11.6 on admission, Hgb dropped to 9.4 in just couple days. Held aspirin and warfarin on admission 2/2 BRBPR. -S/p IV iron on 05/27 -Gastroenterology consulted for evaluation of rectal bleeding -S/p flex sigmoidoscopy on 05/29: large stool burden in rectum and sigmoid colon, friable rectal mucosa-biopsy sent -Rectosigmoid colon biopsy: acute pseudomembranous proctocolitis with adjacent ischemia-type changes, no viral cytopathic changes or infectious microorganisms identified -Hgb stable -Aspirin remains on hold -Continue bowel regimen -Continue pantoprazole 40 mg daily -Encourage OOB -Guaiac stools -Follow daily CBCs GI sign off recommendations: -CTM bleeding. If worsening at any point, or persistence at 2 weeks or so, may need re-evaluation. -Aggressive bowel regimen to prevent constipation which would risk exacerbating his colopathy-titrate to 1-2 soft, easy to pass stools daily. -Defer consideration of bidirectional endoscopy for normocytic anemia with equivocal iron studies to outpatient. Current mucosal injury is not conducive to diagnostic scope for ELISEO. Patient is aware of this consideration. -GI service to follow up on pathology from sigmoidoscopy. Assessment & Plan (06/03/2024 8:04 AM PROCESSING SPEC): Admitted with BRBPR and near syncope, Hgb 11.6 on admission, Hgb dropped to 9.4 in just couple days. Held aspirin and warfarin on admission / BRBPR. -S/p IV iron on 05/27 -Gastroenterology consulted for evaluation of rectal bleeding -S/p flex sigmoidoscopy on 05/29: large stool burden in rectum and sigmoid colon, friable rectal mucosa-biopsy sent -Rectosigmoid colon biopsy: acute pseudomembranous proctocolitis with adjacent ischemia-type changes, no viral cytopathic changes or infectious microorganisms identified -Hgb stable at 10.2 -Aspirin remains on hold -Continue bowel regimen -Continue pantoprazole 40 mg daily -Encourage OOBA -Guaiac stools -Follow daily CBCs GI sign off recommendations: -CTM bleeding. If worsening at any point, or persistence at 2 weeks or so, may need re-evaluation. -Aggressive bowel regimen to prevent constipation which would risk exacerbating his colopathy-titrate to 1-2 soft, easy to pass stools daily. -Defer consideration of bidirectional endoscopy for normocytic anemia with equivocal iron studies to outpatient. Current mucosal injury is not conducive to diagnostic scope for ELISEO. Patient is aware of this consideration. -GI service to follow up on pathology from sigmoidoscopy. Assessment & Plan (06/01/2024 11:39 AM PROCESSING SPEC): Admitted with BRBPR and near syncope, Hgb 11.6 on admission, Hgb dropped to 9.4 in just couple days. Held aspirin and warfarin on admission 2/2 BRBPR. -S/p IV iron on 05/27 -Gastroenterology consulted for evaluation of rectal bleeding -S/p flex sigmoidoscopy on 05/29: large stool burden in rectum and sigmoid colon, friable rectal mucosa-biopsy sent -Rectosigmoid colon biopsy: acute pseudomembranous proctocolitis with adjacent ischemia-type changes, no viral cytopathic changes or infectious microorganisms identified -Hgb stable at 10.2 -Aspirin remains on hold -Continue bowel regimen -Continue pantoprazole 40 mg daily -Encourage OOBA -Guaiac stools -Follow daily CBCs GI sign off recommendations: -CTM bleeding. If worsening at any point, or persistence at 2 weeks or so, may need re-evaluation. -Aggressive bowel regimen to prevent constipation which would risk exacerbating his colopathy-titrate to 1-2 soft, easy to pass stools daily. -Defer consideration of bidirectional endoscopy for normocytic anemia with equivocal iron studies to outpatient. Current mucosal injury is not conducive to diagnostic scope for ELISEO. Patient is aware of this consideration. -GI service to follow up on pathology from sigmoidoscopy. Assessment & Plan (05/31/2024 9:25 AM PROCESSING SPEC): Admitted with BRBPR and near syncope, Hgb 11.6 on admission, Hgb dropped to 9.4 in just couple days. Held aspirin and warfarin on admission 2/2 BRBPR. -S/p IV iron on 05/27/24 -Gastroenterology consulted for evaluation of rectal bleeding -S/p flex sigmoidoscopy on 05/29: large stool burden in rectum and sigmoid colon, friable rectal mucosa-biopsy sent (results pending) -Hgb stable at 9.4 -Patient had BM this morning (noted to have some blood in stool) -Continue pantoprazole 40 mg daily -Guaiac stools -Follow daily CBCs Assessment & Plan (05/27/2024 12:05 PM PROCESSING SPEC): C/O BRBPR admitted with near syncope, admit Hgb 11.6, INR 2.4 -serial CBC -BID PPI -guaiac stools -hold ASA and warfarin pending Hgb trend -consider GI consult when INR down Assessment & Plan (05/27/2024 5:33 AM PROCESSING SPEC): After admission; overnight patient had episode of edmond BRBPR per RN however it was discarded and I was not able to see; per her report it was pretty large, liquidy and bloody. - made NPO for possible GI consultation in AM - Hb recheck ordered - SBP is decreased 147 -> 107 back to where it was on presentation. Will give gentle fluid bolus as he responded previously - Given he has LVAD would not stop AC entirely at this time; reasonable to temporarily consider transitioning to heparin gtt in case ongoing bleeding occurs and he needs a procedure - discussed with pharmacy - hold warfarin for now; would start heparin gtt when INR <2 - check INR daily (Recent 2.45; repeat pending; next check 05/27 pm) - appreciate further cardiology and GI recommendations - IV ppi bid DM (diabetes mellitus) 05/27/2024 Assessment & Plan (08/31/2024 8:37 AM CDT): HgbA1c 7.1 Home reg: Lantus 30, lispro SSI, semaglutide. -reduced glargine to 5 units while on clear liquids -progressed to regular diet 4/2 PM and has been eating 50% or more of meals -BG 180s-210s >>if remains >190 today will readd prandial lispro -increase glargine to 15 units nightly -hold scheduled prandial lispro -qid poc glucose Assessment & Plan (08/30/2024 1:28 PM CDT): HgbA1c 7.1 Home reg: Lantus 30, lispro SSI, semaglutide. -reduced glargine to 5 units while on clear liquids -progressed to regular diet 4/2 PM and has been eating 50% or more of meals -BG 180s-210s -increase glargine to 15 units nightly -hold scheduled prandial lispro -qid poc glucose Assessment & Plan (08/28/2024 9:55 AM CDT): HgbA1c 7.1 Home reg: Lantus 30, lispro SSI, semaglutide. -reduced glargine to 5 units while on clear liquids -holding scheduled prandial lispro -qid poc glucose Assessment & Plan (08/26/2024 12:40 PM CDT): HgbA1c 7.1 Home reg: Lantus 30, lispro SSI, semaglutide. -reduced glargine to 10 units while NPO -holding scheduled prandial lispro -glucose checks Q4h while NPO with sliding scale insulin Assessment & Plan (08/24/2024 10:56 AM CDT): Home reg: Lantus 30, lispro SSI, semaglutide. -dose-reduced basal-bolus inpatient Assessment & Plan (08/24/2024 2:52 AM CDT): Home reg: Lantus 30, lispro SSI, semaglutide. -dose-reduced basal-bolus inpatient Assessment & Plan (06/05/2024 11:44 AM PROCESSING SPEC): Home regimen: Lantus 30units nightly and Lispro SSI -HgbA1c 6.8 -BG currently controlled -Continue dose reduced Lantus 26 units nightly, Lispro 6 units TID with meals + SSI -Carb consistent diet -Accuchecks Assessment & Plan (06/04/2024 11:41 AM PROCESSING SPEC): Home regimen: Lantus 30units nightly and Lispro SSI -HgbA1c 6.8 -BG currently controlled -Continue dose reduced Lantus 26 units nightly, Lispro 6 units TID with meals + SSI -Carb consistent diet -Accuchecks Assessment & Plan (06/03/2024 8:03 AM PROCESSING SPEC): Home regimen: Lantus 30units nightly and Lispro SSI -HgbA1c 6.8 -BG currently controlled -Continue dose reduced Lantus 26 units nightly, Lispro 6 units TID with meals + SSI -Carb consistent diet -Accuchecks Assessment & Plan (06/01/2024 11:40 AM PROCESSING SPEC): Home regimen: Lantus 30units nightly and Lispro SSI -HgbA1c 6.8 -BG currently controlled -Continue dose reduced Lantus 26 units nightly, Lispro 6 units TID with meals + SSI -Carb consistent diet -Accuchecks Assessment & Plan (05/31/2024 9:30 AM PROCESSING SPEC): Home regimen: Lantus 30units nightly and Lispro SSI -HgbA1c 6.8 -BG currently controlled -Continue dose reduced Lantus 26 units nightly, Lispro 6 units TID with meals + SSI -Carb consistent diet -Accuchecks Assessment & Plan (05/27/2024 9:58 AM PROCESSING SPEC): Home regimen includes lantus 30 IU nightly and lispro SSI HgbA1c 6.8 -dose reduce lantus, add meal time lispro insulin Hypomagnesemia 05/27/2024 Assessment & Plan (06/03/2024 8:04 AM PROCESSING SPEC): S/p IV repletion this admission, continue to check and treat as needed Assessment & Plan (05/27/2024 12:04 PM PROCESSING SPEC): Mg 1.3 -replete with PO and IV -recheck tomorrow History of left ventricular assist device (LVAD) 05/26/2024 Assessment & Plan (06/05/2024 11:44 AM PROCESSING SPEC): ICM with HFrEF s/p ELECTRICIAN'S ASSISTANT-D 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 INR 2.45 on admission-warfarin and aspirin held 2/2 GIB. -TTE 05/31: EF 50%; trace TR; on VAD support with HeartMate 3 LVAD at 5200 RPM. -S/p 500 mL IV fluid bolus in ED -Hemodynamically stable, euvolemic on exam, denies LVAD alarms -Warfarin resumed on 05/30 per GI-continue -INR therapeutic -Holding home torsemide with recent episode of syncope on admission -Continue carvedilol 12.5 mg BID -Holding high dose Entresto 2/2 lightheadedness on admission and GI bleeding - resumed entresto 1/4 -Accurate I&O, monitor on telemetry, daily weights Assessment & Plan (06/04/2024 11:42 AM PROCESSING SPEC): ICM with HFrEF s/p ELECT[employer]IAN[employer]S ASSISTANT-D 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 INR 2.45 on admission-warfarin and aspirin held 2/2 GIB. -TTE 1: EF 50%; trace TR; on VAD support with HeartMate 3 LVAD at 5200 RPM. -S/p 500 mL IV fluid bolus in ED -Hemodynamically stable, euvolemic on exam, denies LVAD alarms -Warfarin resumed on 05/30 per GI-continue -INR therapeutic -Holding home torsemide with recent episode of syncope on admission -Continue carvedilol 12.5 mg BID -Holding high dose Entresto 2/2 lightheadedness on admission and GI bleeding - resumed entresto 1/4 -Accurate I&O, monitor on telemetry, daily weights Assessment & Plan (06/03/2024 8:04 AM PROCESSING SPEC): ICM with HFrEF s/p E[employer]IAN[employer]S ASSISTANT-D 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 INR 2.45 on admission-warfarin and aspirin held 2/2 GIB. -TTE 05/31: EF 50%; trace TR; on VAD support with HeartMate 3 LVAD at 5200 RPM. -S/p 500 mL IV fluid bolus in ED -Hemodynamically stable, euvolemic on exam, denies LVAD alarms -Warfarin resumed on 05/30 per GI-continue -INR therapeutic -Holding home torsemide with recent episode of syncope on admission -Continue carvedilol 12.5 mg BID -Holding high dose Entresto 2/2 lightheadedness on admission and GI bleeding - resumed entresto 1/4 -Accurate I&O, monitor on telemetry, daily weights Assessment & Plan (06/01/2024 11:30 AM PROCESSING SPEC): ICM with HFrEF s/p ELECT[employer]IAN[employer]S ASSISTANT-D 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 INR 2.45 on admission-warfarin and aspirin held 2/2 GIB. -TTE 05/31: EF 50%; trace TR; on VAD support with HeartMate 3 LVAD at 5200 RPM. -S/p 500 mL IV fluid bolus in ED -Hemodynamically stable, euvolemic on exam, denies LVAD alarms -INR subtherapeutic (1.56) -Warfarin resumed on 05/30 per GI-continue -Continue heparin gtt until INR >2.0 -Holding home torsemide with recent episode of syncope on admission -Continue carvedilol 12.5 mg BID -Holding Entresto 2/2 lightheadedness on admission and GI bleeding -Accurate I&O, monitor on telemetry, daily weights Assessment & Plan (05/31/2024 9:45 AM PROCESSING SPEC): ICM with HFrEF s/p E[employer]IAN[employer]S ASSISTANT-D 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 INR 2.45 on admission-warfarin and aspirin held 2/2 GIB. -Last TTE 12/2023 EF 68%; mild TR; on VAD support with HeartMate 3 LVAD at 5200 RPM. -S/p 500 mL IV fluid bolus in ED -Hemodynamically stable, euvolemic on exam, denies LVAD alarms -INR subtherapeutic (1.34) -Warfarin resumed on 05/30 per GI-continue -Continue heparin gtt until INR >2.0 -Holding home torsemide with recent episode of syncope on admission -Continue carvedilol 12.5 mg BID -Holding Entresto 2/2 lightheadedness on admission and GI bleeding -Repeat TTE -Accurate I&O, monitor on telemetry, daily weights Assessment & Plan (05/27/2024 12:13 PM PROCESSING SPEC): ICM with HFrEF S/P ELECT[employer]ICIAN[employer]S ASSISTANT-D and DT-HM3 (03/2015) admitted with near syncope and BRBPR -Last TTE 12/2023 EF 68%; mild TR; on VAD support with HM3 at 5200 RPM. 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 Last TTE 12/2023 EF 68%; mild TR; on VAD support with HM3 at 5200 RPM. INR [address] 05/[address] shows unchanged appearance with no new collection or abscess -continue with Levofloxacin 750 mg Q 48 hrs; gets dalbavancin q2 weeks; do not suspect worsened infection currently -on home Torsemide 20 mg daily prn (hold iso orthostasis) -on warfarin 5mg Tue, Tuesday and Tuesday, 4mg other days - hold and monitor INR < 2 prior to starting heparin gtt while awaiting GI consult -daily INR -f/u BCx collected 05/26 pm Hematochezia 05/26/2024 Right sided abdominal pain 04/18/2024 Assessment & Plan (04/19/2024 12:49 PM PROCESSING SPEC): RUQ/ Right flank pain associated with nausea but no vomiting x 3 weeks. Reports no BM x 3 days. RUQ US showing mild gallbladder wall thickening with gallstones and negative sonographic Ortega's sign, unchanged when compared to CT, no evidence of acute cholecystitis. -hepatic US with doppler: unremarkable -Reports mild tenderness on exam but negative ortega's sign -Could be secondary to gallbladder stones, hepatic injury d/t minocycline therapy or constipation. -Bowel regimen. -Pain control -Nausea control. Assessment & Plan (04/18/2024 1:51 PM PROCESSING SPEC): RUQ/ Right flank pain associated with nausea but no vomiting x 3 weeks. Reports no BM x 3 days. RUQ US showing mild gallbladder wall thickening with gallstones and negative sonographic Ortega's sign, unchanged when compared to CT, no evidence of acute cholecystitis. -Reports mild tenderness on exam but negative ortega's sign -Could be secondary to gallbladder stones, hepatic injury d/t minocycline therapy or constipation. -Bowel regimen. -Pain control -Nausea control. Assessment & Plan (04/18/2024 1:38 AM PROCESSING SPEC): RUQ/ Right flank pain associated with nausea For 3 weeks associated with nausea but no vomiting. No tenderness RUQ US showing mild gallbladder wall thickening with gallstones and negative sonographic Ortega's sign, unchanged when compared to CT, no evidence of acute cholecystitis. Could be secondary to gallbladder stones Could be related to constipation Bowel regimen. Pain control Nausea control. Consider general surgery consult in AM. Abnormal liver enzymes 04/17/2024 Assessment & Plan (04/19/2024 12:38 PM PROCESSING SPEC): - have been progressively increasing lately - off ABX (cipro and Minocycline) since 04/10 - ALK 185, AST/ALT: 276/333, Lipase 14 on admission, now slightly trending down - RUQ US was done which showed Mildly limited evaluation. 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 Other medications that could be implicated include his atorvastatin, hydralazine, and allopurinol. - GI recommendations: * DISHA, total IgG, ASMA * blood cultures-->NGTD * HCV RNA, CMV DNA-->both were not detected * Hold off on steroids pending blood cultures and other labs * Hepatic u/s w/ dopplers-->unremarkable * BNP ~1.2K * Spot urine protein/creatinine ratio: 205.9 * Continue holding ABX * GI to follow up. - transplant ID consulted, appreciate recs: resume Dalba and Cipro, continue to hold Minocycline -consult allergy/immunology for Levofloxacin desensitization. Assessment & Plan (04/18/2024 1:40 PM PROCESSING SPEC): - have been progressively increasing lately - off ABX (cipro and Minocycline) since 04/10 - ALK 185, AST/ALT: 276/333, Lipase 14 on admission, now slightly trending down - RUQ US was done which showed Mildly limited evaluation. 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 Other medications that could be implicated include his atorvastatin, hydralazine, and allopurinol. - GI recommendations: * DISHA, total IgG, ASMA * blood cultures-->NGTD * HCV RNA, CMV DNA * Hold off on steroids pending blood cultures and other labs * Hepatic u/s w/ dopplers * BNP * Spot urine protein as well as albumin/creatinine ratio * consult ID for antibiotic recommendations; per ED notes ID consulted; no ABX needed * Continue holding ABX * GI to follow up. - transplant ID consulted, awaiting recs. Assessment & Plan (04/18/2024 3:56 AM PROCESSING SPEC): - have been progressively increasing lately - off AB since 04/10 - ALK 185, AST/ALT: 276/333, Lipase 14 - RUQ US was done which showed Mildly limited evaluation. Within this limitation the hepatic parenchyma appears normal with no explanation for elevated liver enzymes, mild gallbladder wall thickening with gallstones and negative sonographic Ortega's sign, unchanged when compared to CT, no evidence of acute cholecystitis, - GI Hepatology team was consulted; Laboratory findings more consistent with hepatocellular injury, concern for minocycline induced liver injury, which can cause a chronic hepatitis like syndrome with autoimmune features. Other medications that could be implicated include his atorvastatin, hydralazine, and allopurinol. - GI recommendations: - DISHA, total IgG, ASMA - blood cultures to evaluate for drive line infection - HCV RNA, CMV DNA - Hold off on steroids pending blood cultures and other labs - Hepatic u/s w/ dopplers - BNP - Spot urine protein as well as albumin/creatinine ratio - Would recommend ID consult for antibiotic recommendations; per ED notes consulted; no AB needed - Continue holding AB - GI to follow up. Anxiety and depression 01/24/2024 Overview (09/20/2024): Well controlled with Paxil 10mg daily. Periumbilical hernia 03/14/2023 Assessment & Plan (04/02/2023 8:42 AM CDT): Pt admitted with pain around driveline exit site -worsening over last 4 months with increasing abdominal pain, nausea and decreased appetite -CT C/A/P remarkable for anterior abdominal and periumbilical hernia -s/p laparoscopic ventral and umbilical hernia repair 03/22 -pt now recovering from post-op ileus--management as above -wound unremarkable -ACCS following -heparin resumed 03/23, warfarin resumed 03/28 Assessment & Plan (04/01/2023 12:58 PM CDT): Pt admitted with pain around driveline exit site -worsening over last 4 months with increasing abdominal pain, nausea and decreased appetite -CT C/A/P remarkable for anterior abdominal and periumbilical hernia -s/p laparoscopic ventral and umbilical hernia repair 03/22 -pt now recovering from post-op ileus--management as above -wound unremarkable -ACCS following -heparin resumed 03/23, warfarin resumed 03/28 Assessment & Plan (03/31/2023 12:15 PM CDT): Pt admitted with pain around driveline exit site -worsening over last 4 months with increasing abdominal pain, nausea and decreased appetite -CT C/A/P remarkable for anterior abdominal and periumbilical hernia -s/p laparoscopic ventral and umbilical hernia repair 03/22 -pt now recovering from post-op ileus--management as above -wound unremarkable -ACCS following -heparin resumed 03/23, warfarin resumed 03/28 Assessment & Plan (03/28/2023 11:51 AM CDT): Pt admitted with pain around driveline exit site -worsening over last 4 months with increasing abdominal pain, nausea and decreased appetite -CT C/A/P remarkable for anterior abdominal and periumbilical hernia -s/p laparoscopic ventral and umbilical hernia repair 03/22 -pt now recovering from post-op ileus--management as above -wound unremarkable -ACCS following -heparin resumed 1025 am, continue to hold warfarin until patient on regular diet and cleared by surgery Assessment & Plan (03/24/2023 9:31 AM CDT): Pt admitted with pain around driveline exit site -worsening over last 4 months with increasing abdominal pain, nausea and decreased appetite -CT C/A/P remarkable for anterior abdominal and periumbilical hernia -s/p laparoscopic ventral and umbilical hernia repair 03/22 -pt now with ileus--management as above -wound unremarkable -ACCS following -heparin resumed 10 am, do not resume warfarin until discussed with surgery Assessment & Plan (03/22/2023 2:47 PM CDT): Pt admitted with pain around driveline exit site -worsening over last 4 months with increasing abdominal pain, nausea and decreased appetite -CT C/A/P remarkable for anterior abdominal and periumbilical hernia -pt remains stable clinically without any signs of impending strangulation or poor perfusion -s/p laparoscopic ventral and umbilical hernia repair 03/22, clear liquids today -Holding heparin drip, will resume in am -ACCS will continue to follow Assessment & Plan (03/21/2023 10:48 AM CDT): Pt admitted with pain around driveline exit site -worsening over last 4 months with increasing abdominal pain, nausea and decreased appetite -CT C/A/P remarkable for anterior abdominal and periumbilical hernia -pt remains stable clinically without any signs of impending strangulation or poor perfusion -Pt to have surgical hernia repair 03/22 -Hold warfarin, continue with hep gtt surinder-procedure and resume coumadin when ok with surgery -NPO after midnight Assessment & Plan (03/18/2023 1:16 PM CDT): Admitted with pain around driveline exit site -worsening over last 4 months with increasing abdominal pain, nausea and decreased appetite CT C/A/P remarkable for anterior abdominal and periumbilical hernia -no warning signs of impending strangulation or poor perfusion Surgery re-engaged, planning for OR next week Hold warfarin, continue with hep gtt Assessment & Plan (03/17/2023 5:33 PM CDT): Admitted with pain around driveline exit site -worsening over last 4 months with increasing abdominal pain, nausea and decreased appetite CT C/A/P remarkable for periumbilical hernia -no warning signs of impending strangulation or poor perfusion Surgery re-engaged and will plan for surgery this hospitalization Hold warfarin Assessment & Plan (03/16/2023 11:31 AM CDT): -worsening over last 4 months with increasing abdominal pain, nausea and decreased appetite -no warning signs of impending strangulation or poor perfusion -CT A/P remarkable for periumbilical hernia -Gen surgery consulted regarding potential repair- no current plan for inpatient surgery. To be referred to Dr Biggs as outpt. 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 left ventricular assist device (LVAD) 11/04/2021 Overview (05/01/2024): Recurrent superficial DLI, s/p 08/25/2021 operative excisional debridement, with isolates including MSSA, ESBL-producing Klebsiella pneumoniae, Violette albicans, Violette metapsilosis Stenotrophomonas maltophilia bacteremia and LVAD outflow tract infection in 10/2021 VSEfs bacteremia, very low grade with 1/4 bottles positive 08/23/2021 however in setting of LVAD Eosinophilia, possibly Abx-related Mild serum CK elevation 08/2021, likely due to daptomycin therapy Levofloxacin-attributed rash (reported episode in remote past) Developed transaminitis -> switched from minocycline/cipro to Levofloxacin after desensitization Assessment & Plan (08/31/2024 8:38 AM CDT): 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 No acute concerns. 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 No acute concerns. 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 No acute concerns. 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 No acute concerns. 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 No acute concerns. 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 No acute concerns. 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 -CT 05/[address] shows unchanged appearance with no new collection or abscess -Denies driveline pain or drainage -No active concerns with drive line -Continue chronic suppression antibiotics: Levofloxacin 750 mg PO Q 48 hrs; dalbavancin 1,500mg IV Q 2 weeks (last dose was on 05/31) Assessment & Plan (06/03/2024 8:04 AM PROCESSING SPEC): 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 -CT 05/[address] shows unchanged appearance with no new collection or abscess -Denies driveline pain or drainage -No active concerns with drive line -Continue chronic suppression antibiotics: Levofloxacin 750 mg PO Q 48 hrs; dalbavancin 1,500mg IV Q 2 weeks (last dose was on 05/31) Assessment & Plan (06/01/2024 11:40 AM PROCESSING SPEC): 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 -CT 05/[address] shows unchanged appearance with no new collection or abscess -Denies driveline pain or drainage -No active concerns with drive line -Continue chronic suppression antibiotics: Levofloxacin 750 mg PO Q 48 hrs; dalbavancin 1,500mg IV Q 2 weeks (last dose was on 05/31) Assessment & Plan (05/31/2024 9:45 AM PROCESSING SPEC): 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 -CT 05/[address] shows unchanged appearance with no new collection or abscess -Denies driveline pain or drainage -No active concerns with drive line -Continue chronic suppression antibiotics: Levofloxacin 750 mg PO Q 48 hrs; dalbavancin 1,500mg IV Q 2 weeks (due today) -Contacted transplant ID and home dalbavancin ordered for today Assessment & Plan (05/27/2024 12:14 PM PROCESSING SPEC): 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 -no evidence of acute infection -CT C/A/P remarkable for anterior abdominal hernia (around the driveline) as well as periumbilical hernia -blood cx neg at time of admission -repeat BC negative -continue suppressive Dalbavancin (last dose 03/23) and minocycline -Dalbavancin infusions arranged at [facility]. Assessment & Plan (04/01/2023 12:48 PM CDT): History of prior Klebsiella pneumoniae, Violette albicans, Violette metapsilosis, Stenotrophomonas maltophilia bacteremia and LVAD outflow tract infection in 10/2021. -no evidence of acute infection -CT C/A/P remarkable for anterior abdominal hernia (around the driveline) as well as periumbilical hernia -blood cx neg at time of admission -repeat BC negative -continue suppressive Dalbavancin (last dose 03/23) and minocycline Assessment & Plan (03/31/2023 12:15 PM CDT): History of prior Klebsiella pneumoniae, Violette albicans, Violette metapsilosis, Stenotrophomonas maltophilia bacteremia and LVAD outflow tract infection in 10/2021. -no evidence of acute infection -CT C/A/P remarkable for anterior abdominal hernia (around the driveline) as well as periumbilical hernia -blood cx neg at time of admission -repeat BC negative -continue suppressive Dalbavancin (last dose 03/23) and minocycline Assessment & Plan (03/26/2023 4:23 PM CDT): History of prior Klebsiella pneumoniae, Violette albicans, Violette metapsilosis, Stenotrophomonas maltophilia bacteremia and LVAD outflow tract infection in 10/2021. -No evidence of acute infection -Reported abdominal tenderness on admission -CT C/A/P remarkable for anterior abdominal hernia (around the driveline) as well as periumbilical hernia -blood cx neg at time of admission -repeat BC no growth and now s/p 72 hours of additional cefepime coverage -continue suppressive Dalbavancin and minocycline Assessment & Plan (03/24/2023 9:32 AM CDT): History of prior Klebsiella pneumoniae, Violette albicans, Violette metapsilosis, Stenotrophomonas maltophilia bacteremia and LVAD outflow tract infection in 10/2021. -No evidence of acute infection -Reported abdominal tenderness on admission -CT C/A/P remarkable for anterior abdominal hernia (around the driveline) as well as periumbilical hernia -blood cx neg at time of admission -repeat BC given leukocytosis -add renal dose cefepime to regimen for now to broaden coverage -continue suppressive Dalbavancin and minocycline Assessment & Plan (03/22/2023 2:39 PM CDT): History of prior Klebsiella pneumoniae, Violette albicans, Violette metapsilosis, Stenotrophomonas maltophilia bacteremia and LVAD outflow tract infection in 10/2021. -No evidence of acute infection -Reported abdominal tenderness on admission -CT C/A/P remarkable for anterior abdominal hernia (around the driveline) as well as periumbilical hernia -blood cx neg -continue suppressive Dalbavancin and minocycline Assessment & Plan (03/21/2023 10:45 AM CDT): History of prior Klebsiella pneumoniae, Violette albicans, Violette metapsilosis, Stenotrophomonas maltophilia bacteremia and LVAD outflow tract infection in 10/2021. -No evidence of acute infection -Reported abdominal tenderness on admission -CT C/A/P remarkable for anterior abdominal hernia (around the driveline) as well as periumbilical hernia -blood cx NGTD -continue suppressive Dalbavancin and minocycline Assessment & Plan (03/18/2023 1:12 PM CDT): History of prior Klebsiella pneumoniae, Violette albicans, Violette metapsilosis, Stenotrophomonas maltophilia bacteremia and LVAD outflow tract infection in 10/2021. No evidence of acute infection Reported abdominal tenderness on admission CT C/A/P remarkable for anterior abdominal hernia (around the driveline) as well as periumbilical hernia -blood cx NGTD -continue suppressive Dalbavancin and minocycline Assessment & Plan (03/17/2023 5:31 PM CDT): History of prior Klebsiella pneumoniae, Violette albicans, Violette metapsilosis, Stenotrophomonas maltophilia bacteremia and LVAD outflow tract infection in 10/2021. No evidence of acute infection Reported abdominal tenderness on admission CT C/A/P remarkable for periumbilical hernia -blood cx NGTD -continue suppressive Dalbavancin and minocycline Assessment & Plan (03/16/2023 11:27 AM CDT): -history of prior Klebsiella pneumoniae, Violette albicans, Violette metapsilosis, Stenotrophomonas maltophilia bacteremia and LVAD outflow tract infection in 10/2021. -DL dressing loose - needs changed -reporting abdominal tenderness -blood cx NGTD -CT C/A/P remarkable for periumbilical hernia -continue suppressive Dalbavancin and minocycline Assessment & Plan (03/15/2023 11:52 AM CDT): -history of prior Klebsiella pneumoniae, Violette albicans, Violette metapsilosis, Stenotrophomonas maltophilia bacteremia and LVAD outflow tract infection in 10/2021. -DL dressing dry/intact. -reporting abdominal tenderness -blood cx NGTD -CT C/A/P remarkable for periumbilical hernia -continue suppressive Dalbavancin and minocycline Assessment & Plan (03/14/2023 7:10 PM CDT): -history of prior Klebsiella pneumoniae, Violette albicans, Violette metapsilosis, Stenotrophomonas maltophilia bacteremia and LVAD outflow tract infection in 10/2021. -no current drainage, induration or erythema -continue suppressive Dalbavancin and minocycline Assessment & Plan (03/23/2022 1:27 PM CDT): History of driveline infection with MSSA s/p debridement 08/25/2021 now presenting with brown/bloody drive line drainage. Prior ID management as below ? Initially treated with ampicillin-sulbactam but developed rash, changed to daptomycin ? Switched to ceftriaxone after biopsy 10/01/2021 (intermediately sensitive to daptomycin ? Admitted in October 2021 with sepsis - antibiotics changed to Meropenem and clindamycin on admission ? Outside CT scan with improved appearance of LVAD driveline infection ? Blood cultures grew Stenotrophomonas maltophilia -subsequent blood cultures no growth - ID consulted and recommended changing clindamycin to vancomycin - Patient had hypotensive reaction to vancomycin 11/05- concern for severe allergy - Changed from imipenem-cilastatin 500 mg IV q6h (will cover prior Enterococcus faecalis. MSSA and VSE) to Linezolid 600 mg BID - Ok to stop minocycline and continue cefiderocol for steno coverage - PET scan confirmed inflammation at the drive line site but was also concerning for infection of the outflow tract. No plans for surgical intervention as per above - Pt readmitted with DLI 03/03-03/08/22--polymicrobial infection and deemed not to be operative candidate. Discharge regimen of vancomycin,fluconazole,minocycline and ertapenam -drive line clinically improved from prior admission and pt has been tolerating IV vancomycin infusions at home without incident -continue Ertapenem 1g q24 hours and fluconazole 400 mg q24h and minocycline 100/100 -continue vancomycin--dose decreased to 1250mg daily and premedicate with benadryl 25mg (dose decreased 2/2 sedation with good tolerance), check vanc trough prior to next dose today -follow renal fxn/vancomycin troughs closely Assessment & Plan (03/20/2022 1:08 PM CDT): History of driveline infection with MSSA s/p debridement 08/25/2021 now presenting with brown/bloody drive line drainage. Prior ID management as below ? Initially treated with ampicillin-sulbactam but developed rash, changed to daptomycin ? Switched to ceftriaxone after biopsy 10/01/2021 (intermediately sensitive to daptomycin ? Admitted in October 2021 with sepsis - antibiotics changed to Meropenem and clindamycin on admission ? Outside CT scan with improved appearance of LVAD driveline infection ? Blood cultures grew Stenotrophomonas maltophilia -subsequent blood cultures no growth - ID consulted and recommended changing clindamycin to vancomycin - Patient had hypotensive reaction to vancomycin 11/05- concern for severe allergy - Changed from imipenem-cilastatin 500 mg IV q6h (will cover prior Enterococcus faecalis. MSSA and VSE) to Linezolid 600 mg BID - Ok to stop minocycline and continue cefiderocol for steno coverage - PET scan confirmed inflammation at the drive line site but was also concerning for infection of the outflow tract. No plans for surgical intervention as per above - Pt readmitted with DLI 03/03-03/08/22--polymicrobial infection and deemed not to be operative candidate. Discharge regimen of vancomycin,fluconazole,minocycline and ertapenam -drive line clinically improved from prior admission and pt has been tolerating IV vancomycin infusions at home without incident -continue Ertapenem 1g q24 hours and fluconazole 400 mg q24h and minocycline 100/100 -continue vancomycin--dose decreased to 1250mg daily and premedicate with benadryl 25mg (dose decreased 2/2 sedation with good tolerance) -follow renal fxn/vancomycin troughs closely Assessment & Plan (03/19/2022 11:51 AM CDT): History of driveline infection with MSSA s/p debridement 08/25/2021 now presenting with brown/bloody drive line drainage. Prior ID management as below ? Initially treated with ampicillin-sulbactam but developed rash, changed to daptomycin ? Switched to ceftriaxone after biopsy 10/01/2021 (intermediately sensitive to daptomycin ? Admitted in October 2021 with sepsis - antibiotics changed to Meropenem and clindamycin on admission ? Outside CT scan with improved appearance of LVAD driveline infection ? Blood cultures grew Stenotrophomonas maltophilia -subsequent blood cultures no growth - ID consulted and recommended changing clindamycin to vancomycin - Patient had hypotensive reaction to vancomycin 11/05- concern for severe allergy - Changed from imipenem-cilastatin 500 mg IV q6h (will cover prior Enterococcus faecalis. MSSA and VSE) to Linezolid 600 mg BID - Ok to stop minocycline and continue cefiderocol for steno coverage - PET scan confirmed inflammation at the drive line site but was also concerning for infection of the outflow tract. No plans for surgical intervention as per above - Pt readmitted with DLI 03/03-03/08/22--polymicrobial infection and deemed not to be operative candidate. Discharge regimen of vancomycin,fluconazole,minocycline and ertapenam -drive line clinically improved from prior admission and pt has been tolerating IV vancomycin infusions at home without incident -continue Ertapenem 1g q24 hours and fluconazole 400 mg q24h and minocycline 100/100 -continue vancomycin--dose decreased to 1250mg daily and premedicate with benadryl 25mg (dose decreased 2/2 sedation with good tolerance) -repeat drive line drainage culture pending to assess if fluconazole still needed -follow renal fxn/vancomycin troughs closely -anticipate resuming coumadin (likely will require 0.5mg) when INR decreased Assessment & Plan (03/18/2022 11:03 AM CDT): History of driveline infection with MSSA s/p debridement 08/25/2021 now presenting with brown/bloody drive line drainage ? Initially treated with ampicillin-sulbactam but developed rash, changed to daptomycin ? Switched to ceftriaxone after biopsy 10/01/2021 (intermediately sensitive to daptomycin ? Admitted in October 2021 with sepsis - antibiotics changed to Meropenem and clindamycin on admission ? Outside CT scan with improved appearance of LVAD driveline infection ? Blood cultures growing Stenotrophomonas maltophilia -subsequent blood cultures no growth - ID consulted and recommended changing clindamycin to vancomycin - Patient had hypotensive reaction to vancomycin 11/05- concern for severe allergy - Changed from imipenem-cilastatin 500 mg IV q6h (will cover prior Enterococcus faecalis. MSSA and VSE) to Linezolid 600 mg BID - Ok to stop minocycline and continue cefiderocol for steno coverage - PET scan confirmed inflammation at the drive line site but was also concerning for infection of the outflow tract. No plans for surgical intervention as per above -drive line clinically improved from prior admission and pt has been tolerating IV vancomycin infusions at home without incident -continue Ertapenem 1g q24 hours and fluconazole 400 mg q24h and minocycline 100/100 -continue vancomycin 1500mg BID (infuse over 3-4 hours) and premedicate with benadryl 50mg -follow renal fxn/vancomycin troughs closely -anticipate resuming coumadin (likely will require 0.5mg) when INR decreased Assessment & Plan (03/17/2022 11:50 AM CDT): History of driveline infection with MSSA s/p debridement 08/25/2021 now presenting with brown/bloody drive line drainage ? Initially treated with ampicillin-sulbactam but developed rash, changed to daptomycin ? Switched to ceftriaxone after biopsy 10/01/2021 (intermediately sensitive to daptomycin ? Admitted in October 2021 with sepsis - antibiotics changed to Meropenem and clindamycin on admission ? Outside CT scan with improved appearance of LVAD driveline infection ? Blood cultures growing Stenotrophomonas maltophilia -subsequent blood cultures no growth - ID consulted and recommended changing clindamycin to vancomycin - Patient had hypotensive reaction to vancomycin 11/05- concern for severe allergy - Changed from imipenem-cilastatin 500 mg IV q6h (will cover prior Enterococcus faecalis. MSSA and VSE) to Linezolid 600 mg BID - Ok to stop minocycline and continue cefiderocol for steno coverage - PET scan confirmed inflammation at the drive line site but was also concerning for infection of the outflow tract. No plans for surgical intervention as per above -drive line clinically improved from prior admission and pt has been tolerating IV vancomycin infusions at home without incident -continue Ertapenem 1g q24 hours and fluconazole 400 mg q24h and minocycline 100/100 -continue vancomycin 1500mg BID (infuse over 3-4 hours) and premedicate with benadryl 50mg -follow renal fxn/vancomycin troughs closely -anticipate resuming coumadin (likely will require 0.5mg) when INR decreasd Assessment & Plan (03/05/2022 10:17 AM CDT): History of driveline infection with MSSA s/p debridement 08/25/2021 now presenting with brown/bloody drive line drainage Initially treated with ampicillin-sulbactam but developed rash, changed to daptomycin Switched to ceftriaxone after biopsy 10/01/2021 (intermediately sensitive to daptomycin Admitted in October 2021 with sepsis - antibiotics changed to Meropenem and clindamycin on admission Outside CT scan with improved appearance of LVAD driveline infection Blood cultures growing Stenotrophomonas maltophilia -subsequent blood cultures no growth ID consulted and recommended changing clindamycin to vancomycin Patient had hypotensive reaction to vancomycin 11/05- concern for severe allergy Changed from imipenem-cilastatin 500 mg IV q6h (will cover prior Enterococcus faecalis. MSSA and VSE) to Linezolid 600 mg BID Ok to stop minocycline and continue cefiderocol for steno coverage PET scan confirmed inflammation at the drive line site but was also concerning for infection of the outflow tract. 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 now presenting with brown/bloody drive line drainage Initially treated with ampicillin-sulbactam but developed rash, changed to daptomycin Switched to ceftriaxone after biopsy 10/01/2021 (intermediately sensitive to daptomycin Admitted in October 2021 with sepsis - antibiotics changed to Meropenem and clindamycin on admission Outside CT scan with improved appearance of LVAD driveline infection Blood cultures growing Stenotrophomonas maltophilia -subsequent blood cultures no growth ID consulted and recommended changing clindamycin to vancomycin Patient had hypotensive reaction to vancomycin 11/05- concern for severe allergy Changed from imipenem-cilastatin 500 mg IV q6h (will cover prior Enterococcus faecalis. MSSA and VSE) to Linezolid 600 mg BID Ok to stop minocycline and continue cefiderocol for steno coverage PET scan confirmed inflammation at the drive line site but was also concerning for infection of the outflow tract. No plans for surgical intervention as per above -Pt remains hemodynamically stable but anxious about abx therapy -Ertapenem 1g q24 hours and fluconazole 800--> 400 mg q24h -pt reports itching/hives and redness when last given vancomycin -ID consulted for further abx management--unclear if alternate agent possible or patient will need premedicaiton/desensitization to vancomycin - Plan for attempt at vancomycin use again tomorrow, will need to be premedicated Assessment & Plan (11/11/2021 10:21 AM CDT): -Admitted from 08/24-09/03 with DLI; blood cultures were positive for Enterococcus and he underwent debridement with CT surgery 08/25/21. Wound cultures were positive for MSSA. -ID was consulted-- he developed a rash on ampicillin-sulbactam; he was switched to Daptomycin on 09/04. -Unfortunately, he continued to have symptoms and presented to CT surgery clinic for culture on 10/01/2021. MSSA on that culture was only intermediately sensitive to daptomycin, and he was changed to ceftriaxone. Now admitted with fever- management as above -CT scan with improvement appearance of infection -PET scan confirmed inflammation at the drive line site but was also concerning for infection of the outflow tract. Per CTS, no plans for OR as in their opinion there is no clear benefit and significant risk given proximity to bowel. -blood cultures growing S. Maltophilia - continue IV cefiderocol -changed imipenem-cilastatin 500 mg IV q6h to linezolid 600 mg BID -will need tedizolid when he is discharged #Vancomycin allergy Had flushing, itching then about an hour after, hypotension, diplopia and then cloudy mentation - Listed now as an allergy Assessment & Plan (11/10/2021 10:21 AM CDT): -Admitted from 08/24-09/03 with DLI; blood cultures were positive for Enterococcus and he underwent debridement with CT surgery 08/25/21. Wound cultures were positive for MSSA. -ID was consulted-- he developed a rash on ampicillin-sulbactam; he was switched to Daptomycin on 09/04. -Unfortunately, he continued to have symptoms and presented to CT surgery clinic for culture on 10/01/2021. MSSA on that culture was only intermediately sensitive to daptomycin, and he was changed to ceftriaxone. Now admitted with fever- management as above -CT scan with improvement appearance of infection -PET scan confirmed inflammation at the drive line site but was also concerning for infection of the outflow tract. Per CTS, no plans for OR as in their opinion there is no clear benefit and significant risk given proximity to bowel. -blood cultures growing S. Maltophilia, unclear source -changed imipenem-cilastatin 500 mg IV q6h to linezolid 600 mg BID -will need tedizolid when he is discharged #Vancomycin allergy Had flushing, itching then about an hour after, hypotension, diplopia and then cloudy mentation - Listed now as an allergy - Vancomycin and meropenem were switched to imipenem and subsequently to Linezolid 600 mg BID Assessment & Plan (11/09/2021 10:39 AM CDT): Admitted from 08/24-09/03 with DLI; blood cultures were positive for Enterococcus and he underwent debridement with CT surgery 08/25/21. Wound cultures were positive for MSSA. -ID was consulted-- he developed a rash on ampicillin-sulbactam; he was switched to Daptomycin on 09/04. -Unfortunately, he continued to have symptoms and presented to CT surgery clinic for culture on 10/01/2021. MSSA on that culture was only intermediately sensitive to daptomycin, and he was changed to ceftriaxone. Now admitted with fever- management as above -CT scan with improvement appearance of infection -PET scan today as above -blood cultures growing S. Maltophilia, unclear source -continue imipenem-cilastatin 500 mg IV q6h (still covers Enterococcus faecalis in case it came back) -will need tedizolid when he is discharged #Vancomycin allergy Had flushing, itching then about an hour after, hypotension, diplopia and then cloudy mentation - Listed now as an allergy - Vancomycin and meropenem were switched to imipenem Assessment & Plan (11/06/2021 3:22 PM CDT): Admitted from 08/24-09/03 with DLI; blood cultures were positive for Enterococcus and he underwent debridement with CT surgery 08/25/21. Wound cultures were positive for MSSA. -ID was consulted-- he developed a rash on ampicillin-sulbactam; he was switched to Daptomycin on 09/04. -Unfortunately, he continued to have symptoms and presented to CT surgery clinic for biopsy on 10/01/2021. MSSA on that biopsy was only intermediately sensitive to daptomycin, and he was changed to ceftriaxone. Now admitted with fever- management as above - Pet scan to be done today - Blood culture negative to date - Continue imipenem-cilastatin 500 mg IV q6h (still covers Enterococcus faecalis in case it came back) - Would need tedizolid when he is discharged #Vancomycin allergy Had flushing, itching then about an hour after, hypotension, diplopia and then cloudy mentation - Listed now as an allergy - Vancomycin and meropenem were switched to imipenem Assessment & Plan (11/05/2021 2:32 PM CDT): Admitted from 08/24-09/03 with DLI; blood cultures were positive for Enterococcus and he underwent debridement with CT surgery 08/25/21. Wound cultures were positive for MSSA. -ID was consulted-- he developed a rash on ampicillin-sulbactam; he was switched to Daptomycin on 09/04. -Unfortunately, he continued to have symptoms and presented to CT surgery clinic for biopsy on 10/01/2021. MSSA on that biopsy was only intermediately sensitive to daptomycin, and he was changed to ceftriaxone. Now admitted with fever- management as above Wound infection 09/09/2021 Transaminitis 08/28/2021 Assessment & Plan (05/27/2024 2:46 AM PROCESSING SPEC): Improving from prior admission when minocycline switched to levofloxain due to suspicion of DILI - ctm with daily CMP Assessment & Plan (09/02/2021 12:00 PM CDT): Transaminitis likely due to congestion -RUQ ultrasound with cholelithiasis -hold lipitor, scheduled Tylenol discontinued -ID feels Unasyn was unlikely to cause and recommend resuming Assessment & Plan (09/01/2021 9:15 AM CDT): Transaminitis likely due to congestion -RUQ ultrasound with cholelithiasis -hold lipitor, scheduled Tylenol discontinued -ID feels Unasyn was unlikely to cause and recommend resuming Assessment & Plan (08/31/2021 3:28 PM CDT): Transaminitis likely due to congestion -RUQ ultrasound with cholelithiasis -hold lipitor, scheduled Tylenol discontinued -ID feels Unasyn was unlikely to cause and recommend resuming Assessment & Plan (08/28/2021 2:10 PM CDT): Transaminitis -DC scheduled Tyl -RUQ ultrasound -hold lipitor -switch unasyn to daptomycin EZRA (obstructive sleep apnea) 10/22/2020 Assessment & Plan (08/31/2024 8:44 AM CDT): -CPAP at night Assessment & Plan (08/30/2024 1:37 PM CDT): -CPAP at night Assessment & Plan (08/27/2024 10:04 AM CDT): -CPAP at night Assessment & Plan (08/26/2024 12:35 PM CDT): -CPAP at night Assessment & Plan (08/24/2024 10:50 AM CDT): -CPAP at noc Assessment & Plan (08/24/2024 2:39 AM CDT): -cont CPAP Assessment & Plan (06/05/2024 11:46 AM PROCESSING SPEC): -Nightly CPAP with home unit Assessment & Plan (06/04/2024 11:43 AM PROCESSING SPEC): -Nightly CPAP with home unit Assessment & Plan (06/03/2024 8:05 AM PROCESSING SPEC): Nightly CPAP with home unit Assessment & Plan (06/01/2024 11:40 AM PROCESSING SPEC): Nightly CPAP with home unit Assessment & Plan (05/29/2024 11:33 AM PROCESSING SPEC): Nightly CPAP with home unit Assessment & Plan (05/27/2024 9:50 AM PROCESSING SPEC): Nightly CPAP with home unit Assessment & Plan (05/27/2024 1:34 AM PROCESSING SPEC): - continue CPAP Assessment & Plan (04/19/2024 12:49 PM PROCESSING SPEC): Continue with CPAP Assessment & Plan (04/18/2024 1:45 PM PROCESSING SPEC): Continue with CPAP Assessment & Plan (04/18/2024 2:03 AM PROCESSING SPEC): CW CPAP Assessment & Plan (04/02/2023 8:42 AM CDT): -continue CPAP Assessment & Plan (04/01/2023 12:58 PM CDT): -continue CPAP Assessment & Plan (03/29/2023 3:11 PM CDT): -continue CPAP Assessment & Plan (03/26/2023 4:27 PM CDT): -continue CPAP Assessment & Plan (03/23/2023 3:51 PM CDT): -continue CPAP Assessment & Plan (03/22/2023 2:42 PM CDT): -continue CPAP Assessment & Plan (03/19/2023 2:45 PM CDT): -continue CPAP Assessment & Plan (03/18/2023 1:13 PM CDT): -continue CPAP Assessment & Plan (03/16/2023 11:28 AM CDT): -continue CPAP Assessment & Plan (03/15/2023 12:01 PM CDT): -continue CPAP Assessment & Plan (03/14/2023 7:20 PM CDT): -continue CPAP Assessment & Plan (03/23/2022 1:26 PM CDT): -continue CPAP Assessment & Plan (03/22/2022 3:59 PM CDT): -continue CPAP Assessment & Plan (03/19/2022 11:46 AM CDT): - Continue CPAP Assessment & Plan (03/18/2022 11:03 AM CDT): - Continue CPAP Assessment & Plan (03/16/2022 6:54 PM CDT): - Continue CPAP Assessment & Plan (03/03/2022 9:01 PM CDT): - Continue home CPAP Assessment & Plan (11/11/2021 10:01 AM CDT): -home CPAP Assessment & Plan (11/10/2021 10:04 AM CDT): -Home CPAP Assessment & Plan (11/09/2021 10:29 AM CDT): -home CPAP Assessment & Plan (11/05/2021 2:28 PM CDT): Home CPAP Assessment & Plan (08/27/2021 11:54 AM CDT): -continue home CPAP Assessment & Plan (08/26/2021 11:32 AM CDT): -continue home CPAP Assessment & Plan (08/25/2021 10:29 AM CDT): -continue home CPAP Assessment & Plan (08/24/2021 2:20 PM CDT): -continue home CPAP Assessment & Plan (08/24/2021 6:56 AM CDT): C/w home machine Assessment & Plan (08/23/2021 11:22 PM CDT): C/w home machine Assessment & Plan (10/26/2020 9:16 AM CDT): On CPAP at home 9 Assessment & Plan (10/24/2020 2:02 PM CDT): On CPAP at home 9 to bring home machine, but will use hospital's machine in the interim Assessment & Plan (10/22/2020 5:36 PM CDT): On CPAP at home 9 to bring machine, but will use hospital in the interim Obesity 10/22/2020 Assessment & Plan (06/05/2024 11:46 AM PROCESSING SPEC): -BMI 34, encourage weight loss Assessment & Plan (06/03/2024 8:05 AM PROCESSING SPEC): BMI 34, encouraged weight loss Assessment & Plan (05/27/2024 7:50 AM PROCESSING SPEC): BMI 34, encouraged weight loss Assessment & Plan (04/02/2023 8:42 AM CDT): BMI 36.33 -encourage weight loss Assessment & Plan (04/01/2023 12:36 PM CDT): BMI 36.33 -encourage weight loss Assessment & Plan (03/29/2023 3:08 PM CDT): BMI 38.33 -encourage weight loss Assessment & Plan (03/26/2023 4:27 PM CDT): BMI 38.33 -encourage weight loss Assessment & Plan (03/23/2023 3:45 PM CDT): BMI 38.33 -encourage weight loss Assessment & Plan (03/22/2023 2:37 PM CDT): BMI 38.33 -encourage weight loss Assessment & Plan (03/21/2023 10:45 AM CDT): BMI 38.33 Assessment & Plan (03/18/2023 1:08 PM CDT): BMI 38.33 Assessment & Plan (03/17/2023 5:35 PM CDT): BMI 38.33 Assessment & Plan (03/03/2022 9:01 PM CDT): - BMI 33.6 Assessment & Plan (11/07/2021 12:50 PM CDT): BMI 34 Assessment & Plan (11/05/2021 2:27 PM CDT): BMI 34 Assessment & Plan (10/25/2020 10:37 AM CDT): BMI 36.4 Assessment & Plan (10/22/2020 5:37 PM CDT): BMI 36.4 Chronic pain of both knees 01/03/2020 Osteoarthritis of knee 01/03/2020 Chest pain 06/14/2018 Assessment & Plan (06/05/2024 11:42 AM PROCESSING SPEC): Pt c/o chest pain x 3 days relieved with SL nitro. -hx CABG and PCI in past -slightly elevated troponin, continue to trend -EKG unremarkable -increase imdur to 60mg daily -continue coreg, hold ASA 2/2 GIB, previously discontinued statin 2/2 elevated LFT -denies CP since admit Assessment & Plan (06/04/2024 11:36 AM PROCESSING SPEC): Pt c/o chest pain x 3 days relieved with SL nitro. -hx CABG and PCI in past -slightly elevated troponin, continue to trend -EKG unremarkable -increase imdur to 60mg daily -continue coreg, hold ASA 2/2 GIB, previously discontinued statin 2/2 elevated LFT -denies CP since admit Assessment & Plan (06/03/2024 8:00 AM PROCESSING SPEC): Pt c/o chest pain x 3 days relieved with SL nitro. -hx CABG and PCI in past -slightly elevated troponin, continue to trend -EKG unremarkable -increase imdur to 60mg daily -continue coreg, hold ASA 2/2 GIB, previously discontinued statin 2/2 elevated LFT -denies CP since admit Assessment & Plan (05/27/2024 12:21 PM PROCESSING SPEC): Pt c/o chest pain x 3 days relieved with SL nitro. -hx CABG and PCI in past -slightly elevated troponin, continue to trend -EKG unremarkable -increase imdur to 60mg daily -continue coreg, hold ASA 2/2 GIB, previously discontinued statin 2/2 elevated LFT -denies CP since admit Assessment & Plan (10/25/2020 10:37 AM CDT): Admitted with a 7-10 history of increased fatigue, lightheadedness, chest discomfort, and elevated blood pressures Troponins negative CXR unrevealing Treated initially with IV diuretics and antihypertensives Titrated antihypertensives: Continue carvedilol, and losartan Increase amlodipine to 10mg daily and wean off hydralazine Imdur increased to 90mg daily Resolved Assessment & Plan (10/24/2020 2:03 PM CDT): Admitted with a 7-10 history of increased fatigue, lightheadedness, chest discomfort, and elevated blood pressures Troponins negative CXR unrevealing Treated initially with IV diuretics and antihypertensives Titrated antihypertensives: Continue carvedilol, and losartan Increase amlodipine to 10mg daily and wean off hydralazine Imdur increased to 90mg daily Held diuretics today for VENU Assessment & Plan (10/23/2020 2:18 PM CDT): Admitted with a 7-10 history of increased fatigue, lightheadedness, chest discomfort, and elevated blood pressures Troponins negative CXR unrevealing Started on IV diuretics and antihypertensives titrated with improvement in symptoms Continue carvedilol, and losartan Add amlodipine and wean off hydralazine Transition to oral diuretics Assessment & Plan (08/02/2019 9:43 AM PROCESSING SPEC): -chronic systolic end stage heart failure -exam appears euvolemic and LVAD appears to be functioning appropriately -suspect that presenting CP 2/2 poorly controlled BP -continue asa/losartan and coreg/nitrate doses increased -add home torsemide for improved BP control -consider addition of low dose norvasc to optimize BP -echo showed EF 45% and AV opening/good LVAD fxn -continue low sodium diet -tele Assessment & Plan (08/01/2019 12:24 PM PROCESSING SPEC): -chronic systolic end stage heart failure -exam appears euvolemic and LVAD appears to be functioning appropriately -suspect that presenting CP 2/2 poorly controlled BP -continue asa/losartan and coreg/nitrate doses increased -add home torsemide for improved BP control -2D echo pending -continue low sodium diet -tele Assessment & Plan (07/31/2019 4:15 PM PROCESSING SPEC): Appears euvolemic on exam Admitted with elevated blood pressure - patient did not receive am medications in ER Plan to give home dose losartan 100 mg carvedilol 12.5 mg now and imdur 30 Continue to follow blood pressure and remains elevated plan to go up on imdur and carvedilol . Daily weight and monitor intake and output. Patient states he not taking diuretics at home Low sodium diet. Chronic systolic heart failure 06/14/2018 Ischemic cardiomyopathy 02/08/2018 Overview (12/19/2020): Progression to end-stage HF and LVAD implanted Mar 2015 LVAD (left ventricular isacc t device) present ICM, end-stage systolic CHF s/p HM3 (2014) 02/08/2018 Overview (12/21/2021): Status post HeartMate III left ventricular assist device as destination therapy on April 12, 2015 for underlying [place] [employer] class IV heart failure Assessment & Plan (08/31/2024 8:44 AM CDT): ICM with HFrEF S/P ELECTRICIAN'S ASSISTANT-D and DT-HM3 (03/2015) admitted with BRBPR. Hemodynamically stable, appears euvolemic and denies VAD alarms. INR 2.24 on admission. 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 Hemodynamically stable, appears euvolemic and denies VAD alarms. INR 2.24 on admission. 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 Hemodynamically stable, appears euvolemic and denies VAD alarms. INR 2.24 on admission. 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 Hemodynamically stable, appears euvolemic and denies VAD alarms. INR 2.24 on admission. -hold warfarin for GIB -cont entresto, coreg, imdur -cont suppressive abx for hx driveline infection -tele monitoring Assessment & Plan (08/24/2024 10:44 AM CDT): ICM with HFrEF S/P ELECTRICIAN'S ASSISTANT-D and DT-HM3 (03/2015) admitted with [facility]BPR. Hemodynamically stable, appears euvolemic and denies VAD alarms. INR 2.24 on admission. -hold warfarin for GIB *trend INR and consider starting heparin gtt when INR <2 in case ongoing bleeding occurs and he needs a procedure -cont entresto, coreg, imdur -cont suppressive abx for hx driveline infection -tele monitoring Assessment & Plan (08/24/2024 2:53 AM CDT): ICM with HFrEF S/P ELECTRICIAN'S ASSISTANT-D and DT-HM3 (03/2015) admitted with [facility]BPR. Hemodynamically stable, appears euvolemic and denies VAD alarms. INR 2.24 on admission. 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 Drivel line entry site does not look infected. -antibiotics held initially d/t abnormal LFTs -ID consulted, continue to hold Minocycline. -resume Ciprofloxacin and Dalbavancin -Allergy/immunology consulted for desensitization to Levofloxacin. -appears euvolemic on exam. -on home Torsemide 20 mg daily prn. Will continue to monitor volume status and order diuretics prn -On warfarin 5mg [place], Tuesday and Tuesday, 4mg ROW, INR 2.5, CW same. -Patient denied any LVAD alarms. -continue with Entresto and coreg. 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 -on home Torsemide 20 mg daily prn. Will continue to monitor volume status and order diuretics prn -ABx are on hold because of elevated liver enzymes, CW same. -On warfarin 5mg Eboni, Tuesday and Tuesday, 4mg ROW, INR 2.5, CW same. -Drivel line entry site does not look infected. -Patient denied any LVAD alarms. -continue with Entresto and coreg. 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 On warfarin 5mg Eboni, Tuesday and Tuesday, 4mg ROW, INR 2.5, CW same. Drivel line entry site does not look infected. Patient denied any LVAD alarms. CW Entresto and coreg. Monitor volume status and order diuretics as needed, looks euvolemic at the time of admission. Assessment & Plan (04/02/2023 11:33 AM CDT): End stage HF s/p ICD (MDT), s/p DT-HM3 complicated by chronic DLI -LVAD appears well supported, no LVAD alarms, mild volume overload -BP stable and VENU improved with LR hydration; no further temps (likely 2/2 post op state) and leukocytosis resolved -resumed home Coreg 25 mg BID -continue holding Entresto 49-51 mg BID until HF clinic f/u -resume hydralazine 100mg bid on discharge -continue torsemide 20mg po bid -warfarin 6 mg resumed 03/28, INR 1.86 today -Stop heparin drip gtt today -PT/OT and exercise physiology -strict I/Os, daily standing weights, telemetry Assessment & Plan (04/01/2023 12:56 PM CDT): End stage HF s/p ICD (MDT), s/p DT-HM3 complicated by chronic DLI -LVAD appears well supported, no LVAD alarms, mild volume overload -BP stable and VENU improved with LR hydration; no further temps (likely 2/2 post op state) and leukocytosis resolved -resumed home Coreg 25 mg BID -holding Entresto 49-51 mg BID and hydralazine 100mg bid -continue torsemide 20mg po bid -warfarin 6 mg resumed 03/28, extra dose today, continue heparin drip -PT/OT and exercise physiology -strict I/Os, daily standing weights, telemetry Assessment & Plan (03/31/2023 12:14 PM CDT): End stage HF s/p ICD (MDT), s/p DT-HM3 complicated by chronic DLI -LVAD appears well supported, no LVAD alarms, mild volume overload -BP stable and VENU improved with LR hydration; no further temps (likely 2/2 post op state) and leukocytosis resolved -resumed home Coreg 25 mg BID -holding Entresto 49-51 mg BID and hydralazine 100mg bid -continue torsemide 20mg po bid -warfarin 6 mg resumed 03/28, extra dose today, continue heparin drip -PT/OT and exercise physiology -strict I/Os, daily standing weights, telemetry Assessment & Plan (03/28/2023 11:50 AM CDT): End stage HF s/p ICD (MDT), s/p DT-HM3 complicated by chronic DLI -LVAD appears well supported and exam not volume overloaded; no LVAD alarms -BP stable and VENU improved with LR hydration; no further temps (likely 2/2 post op state) and leukocytosis resolved -BC from 03/25 without growth--continue broad spectum abx coverage for now and if cx negative stop cefepime -hold home Coreg 25 mg BID, hydral 100 BID -holding Entresto 49-51 mg BID -continue PRN torsemide -continue heparin gtt until INR is therapeutic -PT/OT and exercise physiology -strict I/Os, daily standing weights -tele Assessment & Plan (03/25/2023 12:45 PM CDT): End stage HF s/p ICD (MDT), s/p DT-HM3 complicated by chronic DLI -currently euvolemic but hypotensive with ileus and new VENU on POD 3 -pt still without BS today--continue NG to low intermittent wall suction -LVAD appears well supported and exam not volume overloaded; no LVAD alarms on interrogation -BP stable and VENU improved with LR hydration; no further temps (likely 2/2 post op state) and leukocytosis improving -BC from 03/25 without growth--continue broad spectum abx coverage for now and if cx negative stop cefepime -hold home Coreg 25 mg BID, hydral 100 BID -holding Entresto 49-51 mg BID -continue PRN torsemide -continue to hold coumadin and will resume post-operatively when taking PO -continue heparin gtt -PT/OT and exercise physiology -strict I/Os, daily standing weights -tele Assessment & Plan (03/24/2023 9:34 AM CDT): End stage HF s/p ICD (MDT), s/p DT-HM3 complicated by chronic DLI -currently euvolemic but hypotensive with ileus and new Venu -LVAD appears well supported and exam not volume overloaded -Device interrogated and no recent low flow alarms (only PI alarms in last 24hours) -LR @ 100ml/hour -hold home Coreg 25 mg BID, hydral 100 BID -holding Entresto 49-51 mg BID -continue PRN torsemide -continue to hold coumadin and will resume post-operatively when ok with Surgery -continue heparin gtt -if BP not improved with IVF will need LARRY OPERATOR -strict I/Os, daily standing weights -tele Assessment & Plan (03/22/2023 2:42 PM CDT): End stage HF s/p ICD (MDT), s/p DT-HM3 complicated by chronic DLI -currently appears well supported and euvolemic -Device interrogated and no recent high grade alarms -continue home Coreg 25 mg BID, hydral 100 BID, Entresto 49-51 mg BID -continue PRN torsemide -INR remains subtherapeutic (goal 2-3) -continue to hold coumadin and will resume post-operatively when ok with Surgery -continue heparin gtt -strict I/Os, daily standing weights -tele Assessment & Plan (03/21/2023 10:44 AM CDT): End stage HF s/p ICD (MDT), s/p DT-HM3 complicated by chronic DLI -currently appears well supported and euvolemic -Device interrogated and no recent high grade alarms -continue home Coreg 25 mg BID, hydral 100 BID, Entresto 49-51 mg BID -continue PRN torsemide -INR remains subtherapeutic (goal 2-3) -continue to hold coumadin and will resume post-operatively when ok with Surgery -continue heparin gtt -strict I/Os, daily standing weights -tele Assessment & Plan (03/18/2023 1:13 PM CDT): End stage HF s/p ICD (MDT), s/p DT-HM3 complicated by chronic DLI -currently appears well supported and euvolemic Device interrogated and no recent high grade alarms -continue home Coreg 25 mg BID, hydral 100 BID, Entresto 49-51 mg BID -continue PRN torsemide INR subtherapeutic 1.54 (goal 2-3) Holding Warfarin for surgical repair of hernia Start heparin drip -strict I/Os, daily standing weights -tele Assessment & Plan (03/17/2023 5:30 PM CDT): End stage HF s/p ICD (MDT), s/p DT-HM3 complicated by chronic DLI -currently appears well supported and euvolemic Device interrogated and no recent high grade alarms -continue home Coreg 25 mg BID, hydral 100 BID, Entresto 49-51 mg BID -continue PRN torsemide INR subtherapeutic (goal 2-3) Holding Warfarin for surgical repair of hernia Start heparin drip -strict I/Os, daily standing weights -tele Assessment & Plan (03/16/2023 11:28 AM CDT): #. End stage HF s/p ICD (MDT), s/p DT-HM3 complicated by chronic DLI -On Daldavancin and Minocycline. -currently appears well supported and euvolemic -HM3 spinning at 5200. Device interrogated and no recent high grade alarms -echo 11/26/22: aortic valve opens with each beat, LVEF 40-45%, paradoxical septal motion -continue home Coreg 25 mg BID, hydral 100 BID, Entresto 49-51 mg BID -continue PRN torsemide -on warfarin for OAC (goal INR 2-3)>INR at admission 3.75, today 3.43. continue holding Warfarin for supratherapeutic INR -strict I/Os, daily standing weights -tele Assessment & Plan (03/15/2023 12:08 PM CDT): #. End stage HF s/p ICD (MDT), s/p DT-HM3 complicated by chronic DLI -On Daldavancin and Minocycline. -currently appears well supported and euvolemic -HM3 spinning at 5200. Device interrogated and no recent high grade alarms -echo 11/26/22: aortic valve opens with each beat, LVEF 40-45%, paradoxical septal motion -continue home Coreg 25 mg BID, hydral 100 BID, Entresto 49-51 mg BID -continue PRN torsemide -on warfarin for OAC (goal INR 2-3)>INR at admission 3.75, today 3.43. continue holding Warfarin for supratherapeutic INR -strict I/Os, daily standing weights -tele Assessment & Plan (03/14/2023 7:10 PM CDT): -currently appears well supported and euvolemic -HM3 spinning at 5200. Device interrogated and no recent high grade alarms -echo 11/26/22: aortic valve opens with each beat, LVEF 40-45%, paradoxical septal motion -continue home Coreg 25 mg BID, hydral 100 BID, Entresto 49-51 mg BID -continue PRN torsemide -continue systemic anticoagulation with warfarin, goal INR 2-3. Will hold for supratherapeutic INR -strict I/Os, daily standing weights -tele Assessment & Plan (03/23/2022 1:26 PM CDT): -Chronic systolic end stage heart failure with HM 3 LVAD (2014) admitted for drive line infection -pt remains hemodynamically stable and euvolemic -no LVAD alarms and LVAD appears to be functioning appropriately -drive line management as above -last echo 11/18: moderate RV dilatation/dysfunction (more dilated than prior study) , EF=35-40%. PASP=52+RAP. AV opens each beat bit mild to moderate AR. Normal Inferior -continue carvedilol 25 mg bid -continue hydralazine 100 mg tid -Imdur increased to 120 mg daily -Entresto increased to 97/103mg bid -INR therapeutic (goal 2-3), DC heparin gtt -intake and output/daily weights -tele Assessment & Plan (03/22/2022 4:00 PM CDT): -Chronic systolic end stage heart failure with HM 3 LVAD (2014) admitted for drive line infection -pt remains hemodynamically stable and euvolemic -no LVAD alarms and LVAD appears to be functioning appropriately -drive line management as above -last echo 11/18: moderate RV dilatation/dysfunction (more dilated than prior study) , EF=35-40%. PASP=52+RAP. AV opens each beat bit mild to moderate AR. Normal Inferior -Continue carvedilol 25 mg bid -Continue hydralazine 100 mg tid -Imdur increased to 120 mg daily -Entresto increased to 97/103mg bid -INR goal 2-3 -intake and output/daily weights -tele Assessment & Plan (03/19/2022 11:45 AM CDT): -Chronic systolic end stage heart failure with HM 3 LVAD (2014) admitted for drive line infection -pt remains hemodynamically stable and euvolemic -no LVAD alarms and LVAD appears to be functioning appropriately -drive line management as above -last echo 11/18: moderate RV dilatation/dysfunction (more dilated than prior study) , EF=35-40%. PASP=52+RAP. AV opens each beat bit mild to moderate AR. Normal Inferior -Continue carvedilol 25 mg bid -Continue hydralazine 100 mg tid -continue imdur 60mg - Continue Entresto 24-26 mg bid -INR goal 2-3 -intake and output/daily weights -tele Assessment & Plan (03/18/2022 11:03 AM CDT): -Chronic systolic end stage heart failure with HM 3 LVAD (2014) admitted for drive line infection -pt remains hemodynamically stable and euvolemic -no LVAD alarms and LVAD appears to be functioning appropriately -drive line management as above -last echo 11/18: moderate RV dilatation/dysfunction (more dilated than prior study) , EF=35-40%. PASP=52+RAP. AV opens each beat bit mild to moderate AR. Normal Inferior -Continue carvedilol 25 mg bid - Continue hydralazine 100 mg tid -continue imdur 60mg - Continue Entresto 24-26 mg bid -INR goal 2-3 -intake and output/daily weights -tele Assessment & Plan (03/16/2022 6:51 PM CDT): -Chronic systolic end stage heart failure with HM 3 LVAD (2014) admitted for drive line infection -pt remains hemodynamically stable and euvolemic -no LVAD alarms and LVAD appears to be functioning appropriately -drive line management as above -last echo 11/18: moderate RV dilatation/dysfunction (more dilated than prior study) , EF=35-40%. PASP=52+RAP. AV opens each beat bit mild to moderate AR. Normal Inferior -Continue carvedilol 25 mg bid - Continue hydralazine 100 mg tid -continue imdur 60mg - Continue Entresto 24-26 mg bid -INR goal 2-3 -intake and output/daily weights -tele Assessment & Plan (03/05/2022 10:27 AM CDT): -Chronic systolic end stage heart failure with HM 3 LVAD )2014) admitted for drive line infection -pt remains hemodynamically stable and euvolemic -no LVAD alarms and LVAD appears to be functioning appropriately -drive line management as above -last echo 11/18: moderate RV dilatation/dysfunction (more dilated than prior study) , EF=35-40%. PASP=52+RAP. AV opens each beat bit mild to moderate AR. Normal Inferior -Continue carvedilol 25 mg bid - Continue hydralazine 100 mg tid -continue imdur 60mg -cozaar changed to low dose entresto -INR goal 2-3 -home coumadin dose (6mg) decreased to 3mg--follow closely with fluconazole -2 gm na diet -intake and output/daily weights -tele Assessment & Plan (03/04/2022 8:35 AM CDT): -Chronic systolic end stage heart failure with HM 3 LVAD )2014) admitted for drive line infection -pt remains hemodynamically stable and euvolemic -no LVAD alarms and LVAD appears to be functioning appropriately -drive line management as above -last echo 11/18: moderate RV dilatation/dysfunction (more dilated than prior study) , EF=35-40%. PASP=52+RAP. AV opens each beat bit mild to moderate AR. Normal Inferior -Continue carvedilol 25 mg bid - Continue hydralazine 100 mg tid -Continue losartan 50 mg daily -INR goal 2-3 -home coumadin dose (6mg) decreased to 4mg--follow closely with fluconazole -2 gm na diet -intake and output/daily weights -tele Assessment & Plan (11/11/2021 10:01 AM CDT): LVAD appears to be functioning appropriately, no alarms -appears euvolemic on exam -continue holding home torsemide for now -INR now therapeutic at 2.9, continue warfarin -continue aspirin, carvedilol, hydralazine, losartan -I&Os, daily weights, telemetry Assessment & Plan (11/10/2021 10:01 AM CDT): LVAD appears to be functioning appropriately, no alarms -appears euvolemic on exam -continue holding home torsemide for now -INR now therapeutic at 2.5, continue warfarin 6mg daily -continue aspirin, carvedilol, hydralazine, losartan -I&Os, daily weights, telemetry Assessment & Plan (11/09/2021 10:35 AM CDT): LVAD appears to be functioning appropriately, no alarms -appears euvolemic on exam -continue holding home torsemide for now -INR now therapeutic at 2.5, continue warfarin 6mg daily -continue aspirin, carvedilol, hydralazine, losartan -I&Os, daily weights, telemetry Assessment & Plan (11/06/2021 10:55 AM CDT): Appears euvolemic on exam LVAD appears to be functioning within normal limits Continue carvedilol, aspirin, atorvastatin Resume hydralazine, torsemide, and Imdur INR subtherapeutic- goal 2-3 Resume warfarin Heparin drip until INR therapeutic Monitor I/Os, daily weights, telemetry Assessment & Plan (11/05/2021 12:58 PM CDT): Appears euvolemic on exam LVAD appears to be functioning within normal limits Continue carvedilol, aspirin, atorvastatin Resume hydralazine, torsemide, and Imdur INR subtherapeutic- goal 2-3 Resume warfarin (give dose this am) Heparin drip until INR therapeutic Monitor I/Os, daily weights, telemetry Assessment & Plan (09/11/2021 9:41 AM CDT): Recent admission for DLI with enterococcus blood cultures and MSSA wound cultures. Follows with ID and was recently changed from Unasyn to Daptomycin due to rash. No evidence of decompensated HF. -ED discussed with ID; no change in therapy at this time -Continue daptomycin 700 mg q24h -Blood cultures x 2 in the ED--NGTD -Continue home coreg 25 mg BID, losartan 100 mg daily, hydralazine 50 mg TID, Imdur 90 mg daily and torsemide 20 mg daily -Heparin gtt given subtherapeutic INR; will continue home warfarin 7 mg tonight and 6 mg rest of the week per anticoagulation note -Wound nurse consulted and will change vac today Assessment & Plan (09/10/2021 9:32 AM CDT): Recent admission for DLI with enterococcus blood cultures and MSSA wound cultures. Follows with ID and was recently changed from Unasyn to Daptomycin due to rash. No evidence of decompensated HF. -ED discussed with ID; no change in therapy at this time -Continue daptomycin 700 mg q24h -Blood cultures x 2 in the ED -Continue home coreg 25 mg BID, losartan 100 mg daily, hydralazine 50 mg TID, Imdur 90 mg daily and torsemide 20 mg daily -Heparin gtt given subtherapeutic INR; will continue home warfarin 7 mg tonight and 6 mg rest of the week per anticoagulation note Consulted wound consult nurses to change wound vac tomorrow Assessment & Plan (09/02/2021 12:01 PM CDT): [facility] March 2015 -LVAD functioning appropriately, no alarms -acute on chronic systolic HF with VENU and elevated LFTs -treated with IV lasix with improvement -transitioned back to home torsemide -INR 1.8, will increase warfarin to 6mg daily except Sun/Mon 5mg (home regimen) -continue home carvedilol, hydralazine, isordil, ASA, atorvastatin -I&Os, daily weights, telemetry Assessment & Plan (09/01/2021 9:21 AM CDT): [facility] March 2015 -LVAD functioning appropriately, no alarms -acute on chronic systolic HF with VENU and elevated LFTs -treated with IV lasix with improvement -transition back to home torsemide -INR down to 1.7; will give extra dose warfarin this morning -continue warfarin -continue home carvedilol, hydralazine, isordil, ASA, atorvastatin -I&Os, daily weights, telemetry Assessment & Plan (08/31/2021 3:38 PM CDT): [facility] March 2015 -LVAD functioning appropriately, no alarms -acute on chronic systolic HF with VENU and elevated LFTs -treated with IV lasix with improvement -transition back to home torsemide -INR 2.8->1.8, repeat INR this afternoon -continue warfarin 5mg daily -resume losartan at a lower dose and titrate up as tolerated -continue home carvedilol, hydralazine, isordil, ASA, atorvastatin -I&Os, daily weights, telemetry Assessment & Plan (08/28/2021 1:53 PM CDT): [facility] March 2015 -LVAD functioning appropriately, no alarms -appears near euvolemic on exam -INR supratherapeutic, hold warfarin tonight -continue home carvedilol, hydralazine, isordil, ASA, atorvastatin -I&Os, daily weights, telemetry Assessment & Plan (08/27/2021 11:55 AM CDT): [facility] March 2015 LVAD functioning appropriately, no alarms -appears near euvolemic on exam -resume home torsemide 20mg daily -INR therapeutic at 2.8 (goal 2-3) -continue home warfarin regimen: 4mg SMWF, 5mg TTS -continue home carvedilol, hydralazine, isordil -continue home ASA 325mg daily, atorvastatin -I&Os, daily weights, telemetry -complication management as above Assessment & Plan (08/26/2021 11:32 AM CDT): [facility] March 2015 LVAD functioning appropriately, no alarms -appears euvolemic on exam -hold home diuretics for now (torsemide 20mg daily) -INR therapeutic at 2.5 (goal 2-3) -continue home warfarin regimen: 4mg SMWF, 5mg TTS -continue home carvedilol, hydralazine, isordil -continue home ASA 325mg daily, atorvastatin -I&Os, daily weights, telemetry -complication management as above Assessment & Plan (08/25/2021 10:29 AM CDT): [facility] March 2015 LVAD functioning appropriately, no alarms -appears euvolemic on exam -hold home diuretics for now (torsemide 20mg daily) -INR therapeutic at 2.2 (goal 2-3) -continue home warfarin regimen: 4mg SMWF, 5mg TTS -continue home carvedilol, hydralazine, isordil -continue home ASA 325mg daily, atorvastatin -I&Os, daily weights, telemetry -complication management as above Assessment & Plan (08/24/2021 2:27 PM CDT): [facility] March 2015 LVAD functioning appropriately, no alarms -appears euvolemic on exam -hold home diuretics for now (torsemide 20mg daily) -INR therapeutic at 2.2 (goal 2-3) -continue home warfarin regimen: 4mg SMWF, 5mg TTS -continue home carvedilol, hydralazine, isordil -continue home ASA 325mg daily, atorvastatin -I&Os, daily weights, telemetry -complication management as above Assessment & Plan (08/24/2021 6:56 AM CDT): Pt p/w redness and drainage at driveline site, afebrile. CT CAP shows increased stranding surrounding the LVAD drive line in the subcutaneous tissues of the left lower abdomen, WBC 10.7 -s/p cefepime and vanc in ED, will continue cefepime and vanc -will consult transplant ID in AM -will consult CT surgery in AM -INR at goal (2-3), c/w warfarin 4mg SMWF, 5mg TTS -c/w home carvedilol, hydralazine, isordil -c/w home ASA 325mg every day, atorvastatin -holding home torsemide 20mg every day Assessment & Plan (08/23/2021 11:56 PM CDT): Pt p/w redness and drainage at driveline site, afebrile. CT CAP shows increased stranding surrounding the LVAD drive line in the subcutaneous tissues of the left lower abdomen, WBC 10.7 -s/p cefepime and vanc in ED, will continue cefepime and vanc -will consult transplant ID in AM -will consult CT surgery in AM -INR at goal (2-3), c/w warfarin 4mg SMWF, 5mg TTS -c/w home carvedilol, hydralazine, isordil -c/w home ASA 325mg every day, atorvastatin -holding home torsemide 20mg every day Assessment & Plan (10/26/2020 9:12 AM CDT): Reports high PIs and low flows with HTN- back to normal with BP control Titrated antihypertensives: Continue carvedilol, and losartan Continue amlodipine to 10mg daily Imdur increased to 90mg daily Held diuretics today for VENU INR therapeutic INR therapeutic (INR goal 2-3) Continue Warfarin to 7mg Discharge on amlodipine 10, losartan 100, coreg 25 bid, Imdur 90 Assessment & Plan (10/24/2020 2:03 PM CDT): Complication management as above Reports high PIs and low flows with HTN- back to normal with BP control Titrated antihypertensives: Continue carvedilol, and losartan Increase amlodipine to 10mg daily and wean off hydralazine Imdur increased to 90mg daily Held diuretics today for VENU INR subtherapeutic Heparin started- continue until INR therapeutic (INR goal 2-3) Increase Warfarin to 7mg Monitor on last chalker I/Os, daily weights Assessment & Plan (10/23/2020 2:19 PM CDT): Complication management as above Reports high PIs and low flows with HTN Diuresis as above Continue carvedilol, and losartan Add amlodipine and wean off hydralazine INR subtherapeutic Heparin started- continue until INR therapeutic (INR goal 2-3) Warfarin increased to 5mg Monitor on telemetry Assessment & Plan (09/05/2020 3:07 PM CDT): - continue home warfarin, asa 325 Assessment & Plan (07/31/2019 4:13 PM PROCESSING SPEC): Patient was implanted in March 2015 as DT with no hospitalizations since implantation. He presents with High PI and history of low flow alarms. Suspect alarms are related to hypertension Plan to check LDH and UA : noted last LDH elevated over 700 in 07/19 Echo ordered INR today 2.9 plan to continue warfarin 4 mg daily Daily INR checks. Cardiac resynchronization th erapy defibrillator (ELECTRICIAN'S ASSISTANT-D) in place 12/30/2017 Overview (12/21/2021): Reached EoL in 2017 - elected NOT to generator change VT (ventricular tachycardia) ([facility]) 8 Overview (12/21/2021): Occurring before LVAD implantation - none since ELECTRICIAN'S ASSISTANT-D device (Metronic-- implanted prior to lvad. Pt is not PPM dependent and decision made to not proceed with generator change in December 2017) Assessment & Plan (09/11/2021 10:26 AM CDT): -NSVT on telemetry -Monitor and replete electrolytes -telemetry Assessment & Plan (09/10/2021 9:31 AM CDT): nsvt noted on last chalker for increase in arrythmia Keep potassium above 4 and magnesium around 2 CTM Assessment & Plan (08/02/2019 9:55 AM PROCESSING SPEC): -ELECTRICIAN'S ASSISTANT-D device (Metronic-- implanted prior to lvad. Pt is not PPM dependent and decision made to not proceed with generator change in December 2017) -continue tele Assessment & Plan (08/01/2019 12:21 PM PROCESSING SPEC): -ELECTRICIAN'S ASSISTANT-D device (Metronic-- implanted prior to lvad. Pt is not PPM dependent and decision made to not proceed with generator change in December 2017) -continue tele Assessment & Plan (07/31/2019 4:21 PM PROCESSING SPEC): patient had ELECTRICIAN'S ASSISTANT-D device metronic implanted prior to lvad Is not pacemaker depenent Saw Dr. ortega from -EP clinic 12/2017 and discussion was not to proceed with generator change and patient currently has lvad And chances of arresting from life threating arrhythmia with lvad was low [employer] current use of anticoagulant therapy 0 06/04/2015 Constipation 08/15/2014 Assessment & Plan (08/24/2024 10:56 AM CDT): Reports intermittent issues w/ constipation, but recently has been having ~1 BM daily on senna/miralax. -cont senna, miralax -if stools are liquid, will send stool culture to rule out c'diff Assessment & Plan (08/24/2024 2:50 AM CDT): Reports intermittent issues w/ constipation, but recently has been having ~1 BM daily on senna/miralax. -cont senna, miralax Assessment & Plan (06/05/2024 11:43 AM PROCESSING SPEC): -CT scan has increase stool burden with stool ball in sigmoid colon -S/p enema for preparation for flex sigmoidoscopy performed on 05/29 -Continue aggressive bowel regimen -Continue Miralax BID, senna-docusate BID, and dulcolax suppository daily -Refuses lactulose due to cramping abd pain -KUB (06/02): A short segment of colon is mildly dilated with gas measuring up to 9.0 cm in the left hemiabdomen. No distal colonic air is definitively noted. Findings likely represent focal ileus. There is stool noted within the right hemicolon. Central bowel gas is nonobstructive. No pneumoperitoneum. -Passing gas and having liquid bowel movements, bloating slowly improving -Enema 06/04 with passing of small amount of stool -Repeat KUB today Assessment & Plan (06/04/2024 11:40 AM PROCESSING SPEC): -CT scan has increase stool burden with stool ball in sigmoid colon -S/p enema for preparation for flex sigmoidoscopy performed on 05/29 -Continue aggressive bowel regimen -Continue Miralax BID, senna-docusate BID, and dulcolax suppository daily -hold lactulose for cramping abd pain -KUB (06/02): A short segment of colon is mildly dilated with gas measuring up to 9.0 cm in the left hemiabdomen. No distal colonic air is definitively noted. Findings likely represent focal ileus. There is stool noted within the right hemicolon. Central bowel gas is nonobstructive. No pneumoperitoneum. -Passing gas and having some liquid bowel movements, still feels bloated -Give enema today Assessment & Plan (06/03/2024 9:55 AM PROCESSING SPEC): -CT scan has increase stool burden with stool ball in sigmoid colon -S/p enema for preparation for flex sigmoidoscopy performed on 05/29 -Continue aggressive bowel regimen -Continue Miralax BID, senna-docusate BID and dulcolax suppository PRN -hold lactulose for cramping abd pain -KUB: Possible focal ileus with a short segment of colon mildly dilated with gas in the left hemiabdomen. Continue current bowel regimen for now. Passing gas and having bowel movements. Assessment & Plan (06/01/2024 11:39 AM PROCESSING SPEC): -CT scan has increase stool burden with stool ball in sigmoid colon -S/p enema for preparation for flex sigmoidoscopy performed on 05/29 -Patient has had several BMs since but none yet today -Continue Miralax BID, senna-docusate BID and dulcolax suppository PRN -Add lactulose today Assessment & Plan (05/31/2024 9:45 AM PROCESSING SPEC): -CT scan has increase stool burden with stool ball in sigmoid colon -S/p enema for preparation for flex sigmoidoscopy performed on 05/29 -Patient has had several BMs including this morning -Continue Miralax, senna-docusate and dulcolax suppository PRN Assessment & Plan (05/27/2024 2:45 AM PROCESSING SPEC): - had large BM in ED - miralax daily Stage 3 chronic kidney disease 02/04/2014 Overview (02/23/2021): Last Assessment & Plan: Stage 3 CKD -Cr remains stable and in baseline range Assessment & Plan (08/31/2024 8:44 AM CDT): -cr stable at baseline Assessment & Plan (08/30/2024 1:37 PM CDT): -cr stable at baseline Assessment & Plan (08/27/2024 10:04 AM CDT): -cr stable at baseline Assessment & Plan (08/26/2024 12:45 PM CDT): -cr stable at baseline Assessment & Plan (06/05/2024 11:46 AM PROCESSING SPEC): -Creatinine at baseline -Avoid nephrotoxins, renally dose meds as appropriate -Avoid hypotension -BMP daily Assessment & Plan (06/04/2024 11:44 AM PROCESSING SPEC): -Creatinine at baseline -Avoid nephrotoxins, renally dose meds as appropriate -Avoid hypotension -BMP daily Assessment & Plan (06/03/2024 8:05 AM PROCESSING SPEC): Creatinine at baseline Assessment & Plan (06/01/2024 11:40 AM PROCESSING SPEC): Creatinine at baseline Assessment & Plan (05/29/2024 11:32 AM PROCESSING SPEC): Creatinine at baseline Assessment & Plan (05/27/2024 7:49 AM PROCESSING SPEC): Creatinine at baseline Assessment & Plan (04/19/2024 12:49 PM PROCESSING SPEC): Cr at baseline CTM. Assessment & Plan (04/18/2024 1:23 PM PROCESSING SPEC): Cr at baseline CTM. Assessment & Plan (04/18/2024 1:46 AM PROCESSING SPEC): Cr at baseline CTM. Assessment & Plan (04/02/2023 8:41 AM CDT): Creatinine at baseline Assessment & Plan (04/01/2023 1:00 PM CDT): Creatinine at baseline Assessment & Plan (03/31/2023 12:13 PM CDT): Creatinine at baseline Assessment & Plan (03/28/2023 11:51 AM CDT): -baseline Cr 1.3-1.7, at baseline on arrival (cr 1.8today) and now with VENU (likely 2/2 NPO status and hypotension) -Cr improved to baseline with hydration -monitor renal function and electrolytes -renally dose medications, minimize nephrotoxins Assessment & Plan (03/25/2023 12:39 PM CDT): -baseline Cr 1.3-1.7, at baseline on arrival (cr 1.8today) and now with VENU (likely 2/2 NPO status and hypotension) -Cr improved with hydration ( -decrease LR to 50ml/hour today -monitor renal function and electrolytes -renally dose medications, minimize nephrotoxins Assessment & Plan (03/24/2023 9:35 AM CDT): -baseline Cr 1.3-1.7, at baseline on arrival (cr 1.8today) and now with VENU (likely 2/2 NPO status and hypotension) -gentle hydration with LR @ 100ml/hour -monitor renal function and electrolytes -renally dose medications, minimize nephrotoxins Assessment & Plan (03/22/2023 2:48 PM CDT): -baseline Cr 1.3-1.7, at baseline on arrival (cr 1.66 today) -monitor renal function and electrolytes -renally dose medications, minimize nephrotoxins Assessment & Plan (03/21/2023 10:42 AM CDT): -baseline Cr 1.3-1.7, at baseline on arrival (creat 1.8 today) -monitor renal function and electrolytes -renally dose medications, minimize nephrotoxins Assessment & Plan (03/18/2023 1:17 PM CDT): -baseline Cr 1.3-1.7, at baseline on arrival (creat 1.91 today) -monitor renal function and electrolytes -renally dose medications, minimize nephrotoxins Assessment & Plan (03/16/2023 11:29 AM CDT): -baseline Cr 1.3-1.7, at baseline on arrival (creat 1.59 today) -monitor renal function and electrolytes -renally dose medications, minimize nephrotoxins Assessment & Plan (03/15/2023 11:59 AM CDT): -baseline Cr 1.3-1.7, at baseline on arrival (creat 1.59 today) -monitor renal function and electrolytes -renally dose medications, minimize nephrotoxins Assessment & Plan (03/14/2023 7:11 PM CDT): -baseline Cr 1.3-1.7, at baseline on arrival -monitor renal function and electrolytes -renally dose medications, minimize nephrotoxins Assessment & Plan (03/23/2022 1:26 PM CDT): Recent VENU with elevated vanco trough, now improved on admission back to baseline -follow Assessment & Plan (03/22/2022 3:59 PM CDT): Recent VENU with elevated vanco trough, now improved on admission back to baseline -follow Assessment & Plan (03/19/2022 11:45 AM CDT): Recent VENU with elevated vanco trough, now improved on admission back to baseline of 1.3 - Monitor Cr Assessment & Plan (03/18/2022 11:02 AM CDT): Recent VENU with elevated vanco trough, now improved on admission back to baseline of 1.3 - Monitor Cr Assessment & Plan (03/16/2022 6:54 PM CDT): Recent VENU with elevated vanco trough, now improved on admission back to baseline of 1.3 - Monitor Cr Assessment & Plan (03/05/2022 10:21 AM CDT): - Cr remains stable and at baseline -follow closely with abx therapy Assessment & Plan (03/04/2022 8:24 AM CDT): - Cr remains stable and at baseline -follow closely with abx therapy Assessment & Plan (11/11/2021 10:00 AM CDT): Baseline Cr 1.3-1.6 -Cr now stable within patient's baseline range -home torsemide held in the setting of VENU and bacteremia -continue to monitor Assessment & Plan (11/10/2021 10:21 AM CDT): Baseline Cr 1.3-1.6 -Cr now stable within patient's baseline range -home torsemide held in the setting of VENU and bacteremia -continue to monitor Assessment & Plan (11/09/2021 10:18 AM CDT): Baseline Cr 1.3-1.6 -Cr now stable within patient's baseline range -home torsemide held in the setting of VENU and bacteremia -continue to monitor Assessment & Plan (11/06/2021 11:02 AM CDT): Baseline Cr 1.3-1.6 Cr increased to 1.86 Torsemide 20 mg daily held in the setting of VENU Assessment & Plan (11/05/2021 2:26 PM CDT): Baseline Cr 1.3-1.6 Cr within patient's baseline Follow Assessment & Plan (08/31/2021 3:36 PM CDT): VENU on CRI -VENU likely cardiorenal -Cr improving with diuresis, 1.75 today -continue to monitor Assessment & Plan (08/28/2021 11:51 AM CDT): VENU on CRI -will hold torsemide and losartan today -recheck creatinine this afternoon Assessment & Plan (08/25/2021 10:26 AM CDT): Cr within patient's baseline range -continue to monitor Assessment & Plan (08/24/2021 2:23 PM CDT): Cr within patient's baseline range -continue to monitor Assessment & Plan (08/24/2021 6:56 AM CDT): At baseline Assessment & Plan (08/23/2021 11:21 PM CDT): At baseline Assessment & Plan (10/26/2020 9:16 AM CDT): Baseline Cr 1.2-1.5 VENU this admission likely related to over diuresis Cr improving Will not resume diuretics at this time Assessment & Plan (10/24/2020 2:02 PM CDT): Baseline Cr 1.2-1.5 Cr 1.85 today- likely from overdiuresis Holding bumetanide- follow Assessment & Plan (10/23/2020 2:25 PM CDT): Baseline Cr 1.2-1.5 Cr within patient's baseline- follow Assessment & Plan (08/02/2019 9:51 AM PROCESSING SPEC): Stage 3 CKD -Cr remains stable and in baseline range Assessment & Plan (08/01/2019 12:25 PM PROCESSING SPEC): Stage 3 CKD -Cr remains stable and in baseline range Assessment & Plan (07/31/2019 4:15 PM PROCESSING SPEC): History ckd stage 3 . Baseline creatine range is 1.6-2.2 Continue to monitor. Hypothyroidism 02/04/2014 Assessment & Plan (08/27/2024 10:33 AM CDT): -cont synthroid Assessment & Plan (08/24/2024 10:54 AM CDT): -cont synthroid Assessment & Plan (08/24/2024 2:52 AM CDT): -cont synthroid Assessment & Plan (04/02/2023 8:42 AM CDT): -continue home Synthroid Assessment & Plan (04/01/2023 12:36 PM CDT): -continue home Synthroid Assessment & Plan (03/29/2023 3:09 PM CDT): -continue home Synthroid Assessment & Plan (03/26/2023 4:27 PM CDT): -continue home Synthroid Assessment & Plan (03/23/2023 3:45 PM CDT): continue home Synthroid Assessment & Plan (03/22/2023 2:37 PM CDT): continue home Synthroid Assessment & Plan (03/19/2023 2:45 PM CDT): continue home Synthroid Assessment & Plan (03/18/2023 1:09 PM CDT): continue home Synthroid Assessment & Plan (03/16/2023 11:26 AM CDT): continue home Synthroid Assessment & Plan (03/15/2023 12:02 PM CDT): continue home Synthroid Assessment & Plan (03/14/2023 7:11 PM CDT): -continue home Synthroid Assessment & Plan (03/23/2022 1:27 PM CDT): -continue levothyroxine 75 mcg daily Assessment & Plan (03/20/2022 1:07 PM CDT): - Continue levothyroxine 75 mcg daily Assessment & Plan (03/16/2022 6:54 PM CDT): - Continue levothyroxine 75 mcg daily Assessment & Plan (03/03/2022 9:01 PM CDT): - Continue levothyroxine 75 mcg daily Assessment & Plan (09/11/2021 9:32 AM CDT): -continue home synthroid 75 mcg daily Assessment & Plan (09/10/2021 2:59 AM CDT): continue home synthroid 75 mcg daily Assessment & Plan (08/26/2021 12:04 PM CDT): TSH 3.59 -continue home levothyroxine 75mcg daily Assessment & Plan (08/25/2021 10:27 AM CDT): TSH 3.59 -continue home levothyroxine 75mcg daily Assessment & Plan (08/24/2021 2:21 PM CDT): TSH 3.59 -continue home levothyroxine 75mcg daily Assessment & Plan (08/24/2021 6:56 AM CDT): C/w home levothyroxine 75mcg qd Assessment & Plan (08/23/2021 11:21 PM CDT): C/w home levothyroxine 75mcg qd Assessment & Plan (09/05/2020 3:07 PM CDT): - home levothyroxine Renal osteodystrophy 02/04/2014 Gastroesophageal reflux disease 01/07/2014 Overview (09/11/2021): -+ dyspepsia -continue PPI Assessment & Plan (08/24/2024 10:57 AM CDT): -cont PPI -check iron studies Assessment & Plan (08/24/2024 2:34 AM CDT): -cont PPI Assessment & Plan (05/27/2024 5:42 AM PROCESSING SPEC): - IV ppi Assessment & Plan (04/19/2024 12:39 PM PROCESSING SPEC): Continue with pantoprazole. Assessment & Plan (04/18/2024 1:41 PM PROCESSING SPEC): Continue with pantoprazole. Assessment & Plan (04/18/2024 1:39 AM PROCESSING SPEC): CW pantoprazole. Assessment & Plan (03/20/2022 1:03 PM CDT): - Continue home PPI Assessment & Plan (03/16/2022 6:51 PM CDT): - Continue home PPI Assessment & Plan (03/05/2022 10:18 AM CDT): - Continue pantoprazole 40 mg daily Assessment & Plan (03/03/2022 8:55 PM CDT): - Continue pantoprazole 40 mg daily Assessment & Plan (09/11/2021 9:30 AM CDT): -continue home PPI Assessment & Plan (09/10/2021 3:00 AM CDT): continue home PPI Assessment & Plan (08/02/2019 9:45 AM PROCESSING SPEC): -+ dyspepsia -continue PPI Assessment & Plan (08/01/2019 10:33 AM PROCESSING SPEC): -+ dyspepsia -continue PPI Assessment & Plan (07/31/2019 4:00 PM PROCESSING SPEC): Increase home dose PPI to bid to see if helps improve acid indigestion Anemia 01/07/2014 Assessment & Plan (04/02/2023 8:42 AM CDT): Chronic and stable -Recent iron profile (Iron 64, Ferritin 94, TIBC 235) -continue to follow Assessment & Plan (04/01/2023 12:35 PM CDT): Chronic and stable -Recent iron profile (Iron 64, Ferritin 94, TIBC 235) -continue to follow Assessment & Plan (03/29/2023 3:06 PM CDT): Chronic and stable -Recent iron profile (Iron 64, Ferritin 94, TIBC 235) -continue to follow Assessment & Plan (03/28/2023 11:41 AM CDT): Chronic and stable -Recent iron profile (Iron 64, Ferritin 94, TIBC 235) -continue to follow Assessment & Plan (03/23/2023 3:45 PM CDT): Chronic and stable -Recent iron profile (Iron 64, Ferritin 94, TIBC 235) -continue to follow. Assessment & Plan (03/22/2023 2:36 PM CDT): Chronic and stable -Recent iron profile (Iron 64, Ferritin 94, TIBC 235) -continue to follow. Assessment & Plan (03/19/2023 2:45 PM CDT): Chronic and stable -Recent iron profile (Iron 64, Ferretin 94, TIBC 235) -continue to follow. Assessment & Plan (03/18/2023 1:08 PM CDT): Chronic and stable -Recent iron profile (Iron 64, Ferretin 94, TIBC 235) -continue to follow. Assessment & Plan (03/17/2023 5:36 PM CDT): Chronic and stable Follow Check Iron studies Assessment & Plan (03/20/2022 1:04 PM CDT): - No active bleeding - Continue to monitor Hb Assessment & Plan (03/16/2022 6:52 PM CDT): - No active bleeding - Continue to monitor Hb Assessment & Plan (03/04/2022 8:23 AM CDT): -H/H stable from prior [facility] reading and pt denies bleeding -Home iron supplementation held for now -continue to follow Assessment & Plan (07/31/2019 4:09 PM PROCESSING SPEC): History of anemia - currently blood counts on admission look good Will continue to follow . Hyperlipidemia 01/07/2014 Assessment & Plan (04/19/2024 12:39 PM PROCESSING SPEC): Holding statin for elevated liver enzymes. Assessment & Plan (04/18/2024 1:16 PM PROCESSING SPEC): Holding statin for elevated liver enzymes. Assessment & Plan (04/18/2024 1:42 AM PROCESSING SPEC): Holding statin for elevated liver enzymes. 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 -Monitor BP and adjust accordingly. -Orthostatic BP as patient mentioned having occasional lightheadedness while standing. -encourage adequate rehydration, safety precautions while changing positions, compression stockings. May consider med readjustment if symptoms persist Assessment & Plan (04/18/2024 1:42 PM PROCESSING SPEC): -Continue with Entresto, Hydralazine, coreg and imdur. -Monitor BP and adjust accordingly. -Orthostatic BP as patient mentioned having occasional lightheadedness while standing. Assessment & Plan (04/18/2024 3:57 AM PROCESSING SPEC): CW Entresto, Hydralazine, coreg and imdur. Monitor BP and adjust accordingly. Orthostatic BP as patient mentioned having occasional lightheadedness while standing. Assessment & Plan (03/23/2022 1:27 PM CDT): -continue hydralazine, Imdur, Coreg and Entresto Assessment & Plan (03/20/2022 1:05 PM CDT): - Continue home hydralazine, Imdur, Coreg and Entresto Assessment & Plan (03/19/2022 11:44 AM CDT): - Continue home hydralazine, Imdur, Coreg and Entresto Assessment & Plan (03/18/2022 10:58 AM CDT): - Continue home hydralazine, Imdur, Coreg and Entresto Assessment & Plan (03/16/2022 6:53 PM CDT): - Continue home hydralazine, Imdur, Coreg and Entresto Assessment & Plan (03/05/2022 2:10 PM CDT): -home regimen: Coreg 25/25, Hydralazine 100mg TID, Cozaar 50 And Imdur 60mg -BP has been suboptimally controlled here -resume imdur and continue coreg/hydralazine -cozaar changed to low dose entresto--increase dose if needed Assessment & Plan (03/05/2022 10:27 AM CDT): -home regimen: Coreg 25/25, Hydralazine 100mg TID, Cozaar 50 And Imdur 60mg -BP has been suboptimally controlled here -resume imdur and continue coreg/hydralazine -cozaar changed to low dose entresto--increase dose if needed Assessment & Plan (08/02/2019 9:41 AM PROCESSING SPEC): -pt presented with poorly controlled hypertension -systolic BP remains elevated despite increased nitrates and coreg doses -consider addition of low dose norvasc to regimen -continue losartan and torsemide to regimen Assessment & Plan (08/01/2019 12:23 PM PROCESSING SPEC): -pt presented with poorly controlled hypertension -nitrates and coreg increased--continue to follow and titrate as needed -continue losartan and add torsemide to regimen Assessment & Plan (07/31/2019 3:57 PM PROCESSING SPEC): Elevated blood pressures at home and recorded in hospital 149/94-180/101 Plan to give medications patient has missed This am . Losartan 100mg carvedilol 12.5 mg and imdur 30 mg Plan to titrate up imdur and carvedilol to help control blood pressure Goal to get blood pressure under control suspect will help with chest pain . Iron deficiency anemia 01/07/2014 Overview (09/20/2024): .Hx of ELISEO. On iron replacement. Resolved Problems Problem Noted Date Diagnosed Date Resolved Date Ileus 03/24/2023 05/01/2024 Assessment & Plan (04/02/2023 8:42 AM CDT): KUB 03/23 c/f ileus -NG placed 03/24 for distention and nausea. Now having BM and passing flatus. -abdomen soft today, NG tube removed 03/26 -incision remains unremakable -BC (03/24) negative and leukocytosis resolved-discontinued additional cefepime -tolerating regular diet -PT/OT and exercise physiology; encourage increased activity and exercise at home to aid in healing and weight lose -will need bowel regimen at discharge -minimize analgesics Assessment & Plan (04/01/2023 12:41 PM CDT): KUB 03/23 c/f ileus -NG placed 03/24 for distention and nausea. Now having BM and passing flatus. -abdomen soft today, NG tube removed 03/26 -incision remains unremakable -BC (03/24) negative and leukocytosis resolved-discontinued additional cefepime -tolerating regular diet -PT/OT and exercise physiology; encourage increased activity and exercise at home to aid in healing and weight lose -will need bowel regimen at discharge -minimize analgesics Assessment & Plan (03/30/2023 10:34 AM CDT): KUB 03/23 c/f ileus -NG placed 03/24 for distention and nausea. Now having BM and passing flatus. -abdomen soft today, NG tube removed 03/26 -incision remains unremakable -BC (03/24)negative and leukocytosis resolved-discontinued additional cefepime -tolerating regular diet -PT/OT and exercise physiology -will need bowel regimen at discharge -minimize analgesics Assessment & Plan (03/28/2023 11:46 AM CDT): KUB 03/23 c/f ileus -NG placed 03/24 for distention and nausea. Now having BM and passing flatus. -abdomen soft today, NG tube removed 03/26 -incision remains unremakable -BC (03/24)negative and leukocytosis improving--discontinue additional cefepime coverage now (completed 72 hours) -continue heparin and resume coumadin when ok per surgery -tolerating regular diet -PT/OT and exercise physiology -will need bowel regimen at discharge -minimize analgesics Assessment & Plan (03/25/2023 12:50 PM CDT): -NG placed 03/24--pt still without BS this am but reports gas and abdomen noted to be slightly softer today -NPO until gut awakens -NG to low intermittent suction -continue LR @ 50ml/hour and follow lab closely -incision remains unremakable -BC (03/24)negative and leukocytosis improving--will continue broad spectrum abx for now (cefepime added to regimen) -continue heparin and resume coumadin when taking PO -PT/OT and exercise physiology -will need aggressive bowel regimen -minimize analgesics Assessment & Plan (03/24/2023 9:30 AM CDT): KUB late yesterday suggestive of post-operative ileus. Pt reports passing gas today but no BS heard on exam this am and leukocytosis/hypotension -will place KUB-->low intermittent wall suction -keep NPO -LR @ 100ml/hour while NPO -suspect hypotension largely in part reflective of NPO status; if not resolved with IVF will need low dose inotropic support -check baseline labs including lactate/amylase/lipase/blood cx, etc. -continue dalbavancin and will add cefepime (renally dosed) -await Surgery input -follow closely and if any clinical deterioration may need transfer to ICU BPH (benign prostatic hyperplasia) 03/15/2023 06/02/2024 Assessment & Plan (05/27/2024 2:07 AM PROCESSING SPEC): - flomax; low threshold to hold if recurrent hypotension Assessment & Plan (04/19/2024 12:39 PM PROCESSING SPEC): MIR tamsulosin. Assessment & Plan (04/18/2024 1:13 PM PROCESSING SPEC): CW tamsulosin. Assessment & Plan (04/18/2024 1:39 AM PROCESSING SPEC): CW tamsulosin. Assessment & Plan (04/02/2023 8:42 AM CDT): -continue home tamsulosin Assessment & Plan (04/01/2023 12:35 PM CDT): -continue home tamsulosin Assessment & Plan (03/29/2023 3:06 PM CDT): -continue home tamsulosin Assessment & Plan (03/26/2023 4:27 PM CDT): -continue home tamsulosin Assessment & Plan (03/23/2023 3:45 PM CDT): -continue home tamsulosin Assessment & Plan (03/22/2023 2:36 PM CDT): -continue home tamsulosin Assessment & Plan (03/19/2023 2:44 PM CDT): -continue home tamsulosin Assessment & Plan (03/18/2023 1:08 PM CDT): -continue home tamsulosin Assessment & Plan (03/16/2023 11:25 AM CDT): -continue home tamsulosin Assessment & Plan (03/15/2023 12:03 PM CDT): -continue home tamsulosin Supratherapeutic INR 03/16/2022 023 Assessment & Plan (03/23/2022 1:26 PM CDT): No recent changes to diet or medications other than abx therapy -likely related to addition of fluconazole to regimen recently -ASA 81 mg -continue warfarin 1mg daily Assessment & Plan (03/22/2022 3:58 PM CDT): No recent changes to diet or medications other than abx therapy -likely related to addition of fluconazole to regimen recently -ASA 81 mg -continue warfarin 1mg daily Assessment & Plan (03/19/2022 11:45 AM CDT): No recent changes to diet or medications other than abx therapy -likely related to addition of fluconazole to regimen recently -INR decreasing but remains high--pt given vitamin K 2.5mg PO on 03/18 -continue to hold coumadin -pt remains stable without evidence of bleeding -will restart warfarin when nearing goal (will likely need 0.5-1mg dose) Assessment & Plan (03/18/2022 11:02 AM CDT): No recent changes to diet or medications other than abx therapy -likely related to addition of fluconazole to regimen recently -INR remains high--will give vitamin K 2.5mg PO -continue to hold coumadin -pt remains stable without evidence of bleeding -will restart warfarin when nearing goal (will likely need 0.5-1mg dose) Assessment & Plan (03/17/2022 11:16 AM CDT): No recent changes to diet or medications other than abx therapy -likely related to addition of fluconazole to regimen recently - Monitor INR, will restart warfarin when nearing goal (will likely need 0.5-1mg dose) -remains stable without evidence of bleeding Sepsis 11/05/2021 06/22/2022 Assessment & Plan (11/11/2021 10:22 AM CDT): 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 MSSA and VSE) to Linezolid 600 mg BID Ok to stop minocycline and continue cefiderocol for steno coverage Will need PICC line for home IV antibiotics -hemodynamically stable -PET scan confirmed inflammation at the drive line site but was also concerning for infection of the outflow tract. No plans for surgical intervention as per above. 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 MSSA and VSE) to Linezolid 600 mg BID Ok to stop minocycline and continue cefiderocol for steno coverage -hemodynamically stable -PET scan confirmed inflammation at the drive line site but was also concerning for infection of the outflow tract. No plans for surgical intervention as per above. 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 He is current hemodynamically stable and on RA. Will continue remdesivir therapy. -Continue remdesivir for total of 3 days. Will complete tomorrow. -No indication for steroids given RA -Will hold on empiric antibiotics for other sources of infection -S/p 250 mL of IVF; will hold on further IVF Assessment & Plan (09/10/2021 2:58 AM CDT): Patient presenting with fatigue and fever thought to be secondary to changes in abx therapy however likely cause is COVID. He is current hemodynamically stable and on RA. Will continue remdesivir therapy. -Continue remdesivir -No indication for steroids given RA -Will hold on empiric antibiotics for other sources of infection -S/p 250 mL of IVF; will hold on further IVF Infection and inflammatory r eaction due to cardiac device, implant, and graft 08/24/202112/21 Assessment & Plan (09/02/2021 12:04 PM CDT): Presented to the ED with driveline redness, drainage, and pain. -CT with increased stranding surrounding the driveline in the subcutaneous tissue of the left lower abdomen -afebrile, hemodynamically stable -wound culture with MSSA and blood cultures with E. Faecalis -daily blood cultures since 08/24 no growth -CT surgery consulted, s/p I&D 08/25 -wound nurse consulted, wound vac placed 08/27 -pain control -ID consulted and recommended stopping cefepime and vancomycin, started Unasyn 3g IV q6hrs 08/27 -Unasyn likely not the cause of elevated LFTs, ID recommended stopping dapto and resuming Unasyn -PICC line in place -arranging home health for IV abx and wound vac care - awaiting insurance authorization for wound vac Assessment & Plan (09/01/2021 9:17 AM CDT): Presented to the ED with driveline redness, drainage, and pain. -CT with increased stranding surrounding the driveline in the subcutaneous tissue of the left lower abdomen -afebrile, hemodynamically stable -wound culture with MSSA and blood cultures with E. Faecalis -daily blood cultures since 08/24 no growth -CT surgery consulted, s/p I&D 08/25 -wound nurse consulted, wound vac placed 08/27 -pain control -ID consulted and recommended stopping cefepime and vancomycin, started Unasyn 3g IV q6hrs 08/27 -Unasyn likely not the cause of elevated LFTs, ID recommends stopping dapto and resuming Unasyn -PICC line in place -arranging home health for IV abx and wound vac care -social work notified of possible discharge 09/02 Assessment & Plan (08/31/2021 3:35 PM CDT): Presented to the ED with driveline redness, drainage, and pain. -CT with increased stranding surrounding the driveline in the subcutaneous tissue of the left lower abdomen -afebrile, hemodynamically stable -wound culture with MSSA and blood cultures with E. Faecalis -daily blood cultures since 08/24 no growth -CT surgery consulted, s/p I&D 08/25 -wound nurse consulted, wound vac placed 08/27 -pain control -ID consulted and recommended stopping cefepime and vancomycin, started Unasyn 3g IV q6hrs 08/27 -Unasyn likely not the cause of elevated LFTs, ID recommends stopping dapto and resuming Unasyn -PICC line in place -arranging home health for IV abx and wound vac care Assessment & Plan (08/28/2021 2:13 PM CDT): Presented to the ED with driveline redness, drainage, and pain. -CT with increased stranding surrounding the driveline in the subcutaneous tissue of the left lower abdomen -afebrile, hemodynamically stable -wound culture with MSSA and blood cultures with E. Faecalis -daily blood cultures since 08/24 no growth -CT surgery consulted, s/p I&D 08/25 -wound nurse consulted, wound vac placed 08/27 -pain control -ID consulted and recommended stopping cefepime and vancomycin, started Unasyn 3g IV q6hrs 08/27 -elevated LFT and creatinine today; per ID will switch unasyn to dapto; baseline CK and CBC with diff ordered -PICC line in place -arranging home health for IV abx and wound vac care Assessment & Plan (08/27/2021 11:57 AM CDT): Presented to the ED with driveline redness, drainage, and pain. WBC 10.7. -CT with increased stranding surrounding the driveline in the subcutaneous tissue of the left lower abdomen -s/p cefepime and vanc in ED -afebrile, hemodynamically stable -wound culture with MSSA and blood cultures with E. Faecalis -daily blood cultures since 08/24 no growth, will discontinue daily cultures -CT surgery consulted, s/p I&D 08/25 -wound nurse consulted, plan for wound vac placement today -pain control with scheduled tylenol and oxycodone PRN -ID consulted and recommended stopping cefepime and vancomycin and starting Unasyn 3g IV q6hrs -will order PICC line -will need home health arranged for IV abx and wound vac care Assessment & Plan (08/26/2021 12:12 PM CDT): Presented to the ED with driveline redness, drainage, and pain. WBC 10.7. -CT with increased stranding surrounding the driveline in the subcutaneous tissue of the left lower abdomen -s/p cefepime and vanc in ED -afebrile, hemodynamically stable -wound culture with MSSA and blood cultures with E. Faecalis -daily blood cultures until clear -CT surgery consulted, s/p OR yesterday for I&D -wound nurse consulted to place wound vac today -pain control with tylenol and oxycodone PRN -ID consulted and recommended stopping cefepime and vancomycin and starting ampicillin -will start ampicillin 2g q4hrs (CrCl >50), pt has amoxicillin allergy listed however this is not likely a true allergy as the reaction was to a combination medication and he had tolerated PCN multiple times prior to that -will need home health arranged for IV abx and wound vac care Assessment & Plan (08/25/2021 10:29 AM CDT): Presented to the ED with driveline redness, drainage, and pain. WBC 10.7. -CT with increased stranding surrounding the driveline in the subcutaneous tissue of the left lower abdomen -s/p cefepime and vanc in ED -afebrile, hemodynamically stable -wound and blood culture growing gram positive cocci -repeat blood cultures and continue daily until clear -continue cefepime and vancomcyin -Plan for OR today with CTS -Transplant ID consult, appreciate assistance Assessment & Plan (08/24/2021 2:32 PM CDT): Presented to the ED with driveline redness, drainage, and pain. WBC 10.7. -CT with increased stranding surrounding the driveline in the subcutaneous tissue of the left lower abdomen -s/p cefepime and vanc in ED -afebrile, hemodynamically stable -wound and blood culture growing gram positive cocci -repeat blood cultures and continue daily until clear -continue cefepime and vancomcyin -CT surgery consulted and will review imaging -will consult transplant ID in AM -follow Diarrhea of presumed infectious origin 09/05/2020 12/19/2020 Assessment & Plan (09/05/2020 3:05 PM CDT): Suspect viral gastroenteritis. However, because he is immunosuppressed and has an LVAD, will check stool studies. - cdiff, stool culture, O&P - CT abdomen/pelvis (was going to get OP for prostate anyway) Change in bowel habits 04/13/201812/19 Hypoxemia 08/15/2014 02/23/2021 Hyperkalemia 02/04/2014 12/19/2020 Insomnia 02/04/2014 06/22/2022 Chronic renal insufficiency, stage III (moderate) 02/04/2014 02/23/2021 Overview (09/05/2020): Last Assessment & Plan: Stage 3 CKD -Cr remains stable and in baseline range Assessment & Plan (09/05/2020 3:07 PM CDT): - bl looks to be about 1.4-1.6 Type 2 diabetes mellitus without complication 01/08/20 14 05/27/2024 Overview (02/23/2021): -HgA1C well controlled -continue lantus and SSI Assessment & Plan (05/27/2024 2:51 AM PROCESSING SPEC): Home regimen includes lantus 30 IU nightly and lispro SSI - continue with basal (dose reduced to 17 units during prior admission) and SSI only (he states he takes 1-6 of lispro with meals) - add bolus TID if needed Assessment & Plan (04/19/2024 12:50 PM PROCESSING SPEC): Home regimen includes lantus 30 IU nightly and lispro (6-20 IU) (per patient he takes 18 international units with most of the meals) - continue with basal bolus (dose reduced to 17 units) and prandial (dose reduced to 6 units with meals) regimen in additional to SSI - Monitor blood sugar and adjust insuline as needed. Assessment & Plan (04/18/2024 1:55 PM PROCESSING SPEC): Home regimen includes lantus 30 IU nightly and lispro (6-20 IU) (per patient he takes 18 international units with most of the meals) - continue with basal bolus (dose reduced to 17 units) and prandial (dose reduced to 6 units with meals) regimen in additional to SSI - Monitor blood sugar and adjust insuline as needed. Assessment & Plan (04/18/2024 1:42 AM PROCESSING SPEC): Home regimen includes lantus 30 IU nightly and lispro (6-20 IU) (per patient he takes 18 international units with most of the meals) CW basal blous regimen Monitor blood sugar and adjust insuline as needed. Assessment & Plan (04/02/2023 8:41 AM CDT): insulin dependent, recent A1c 6.8% -tolerating PO intake -continue lantus 30 units -QID POC checks -SSI Assessment & Plan (04/01/2023 1:02 PM CDT): insulin dependent, recent A1c 6.8% -tolerating PO intake -continue lantus 30 units -QID POC checks -SSI Assessment & Plan (03/29/2023 3:12 PM CDT): insulin dependent, recent A1c 6.8% -tolerating PO intake -continue lantus 28 units -QID POC checks -SSI Assessment & Plan (03/26/2023 4:27 PM CDT): insulin dependent, recent A1c 6.8% -tolerating PO intake -resume lantus 28 units -QID POC checks -SSI Assessment & Plan (03/25/2023 12:31 PM CDT): insulin dependent, recent A1c 6.8% -will decrease lantus to 20 units while NPO (LR rate decrease today) -Q 4 hour POC checks while NPO -follow closely while NPO and on LR -SSI Assessment & Plan (03/24/2023 9:29 AM CDT): insulin dependent, recent A1c 6.8% -dose reduced Lantus to 28 units and Lispro 9 units TID with meals -QID POC checks with SSI -follow closely while NPO and on LR Assessment & Plan (03/22/2023 2:49 PM CDT): insulin dependent, recent A1c 6.8% -dose reduced Lantus to 28 units and Lispro 9 units TID with meals -QID POC checks with SSI -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 -Blood glucose well controlled since admission Assessment & Plan (03/21/2023 10:39 AM CDT): insulin dependent, recent A1c 6.8% -dose reduce Lantus to 28 units and Lispro 9 units TID with meals -QID POC checks with SSI -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 -Blood glucose well controlled since admission Assessment & Plan (03/18/2023 1:17 PM CDT): insulin dependent, recent A1c 6.8% -dose reduce Lantus to 28 units and Lispro 9 units TID with meals -QID POC checks with SSI -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 Blood glucose well controlled since admission Assessment & Plan (03/17/2023 5:33 PM CDT): insulin dependent, recent A1c 6.8% -dose reduce Lantus to 28 units and Lispro 9 units TID with meals -QID POC checks with SSI -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 Blood glucose well controlled since admission Assessment & Plan (03/16/2023 11:30 AM CDT): insulin dependent, recent A1c 6.8% -dose reduce Lantus to 28 units and Lispro 9 units TID with meals -QID POC checks with SSI -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 Assessment & Plan (03/15/2023 12:00 PM CDT): insulin dependent, recent A1c 6.8% -dose reduce Lantus to 28 units and Lispro 9 units TID with meals -QID POC checks with SSI -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 Assessment & Plan (03/14/2023 7:11 PM CDT): -insulin dependent, last A1c 6.8% -dose reduce Lantus to 28 units and Lispro 9 units TID with meals -QID POC checks with SSI -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 Assessment & Plan (03/23/2022 1:25 PM CDT): -glargine 30 units nightly at home -HgA1c 6.8 and BS remain well controlled here -continue lantus + SSI -consistent carb diet Assessment & Plan (03/22/2022 3:58 PM CDT): -glargine 30 units nightly at home -HgA1c 6.8 and BS remain well controlled here -continue lantus + SSI -consistent carb diet Assessment & Plan (03/19/2022 11:45 AM CDT): - Glargine 30 units nightly at home -HgA1c 6.8 and BS remain well controlled here -continue lantus + SSI Assessment & Plan (03/18/2022 11:02 AM CDT): - Glargine 30 units nightly at home -HgA1c 6.8 and BS remain well controlled here -continue lantus + SSI Assessment & Plan (03/16/2022 6:52 PM CDT): - Glargine 30 units nightly at home -HgA1c 6.8 and BS remain well controlled here -continue lantus + SSI Assessment & Plan (03/05/2022 10:21 AM CDT): - Glargine 30 units nightly at home -HgA1c 6.8 and BS remain well controlled here -continue lantus + SSI Assessment & Plan (03/03/2022 8:56 PM CDT): - Glargine 30 units nightly - High intensity SSI Assessment & Plan (11/11/2021 9:59 AM CDT): Blood glucose 130-190s Home regimen Basaglar 30U nightly and SSI Regular -continue Lantus 30u nightly, Lispro 8u with meals + SSI -consistent carb diet -follow closely Assessment & Plan (11/10/2021 10:23 AM CDT): Blood glucose 130-190s Home regimen Basaglar 30U nightly and SSI Regular -continue Lantus 30u nightly, Lispro 8u with meals + SSI -consistent carb diet -follow closely Assessment & Plan (11/09/2021 10:15 AM CDT): Blood glucose 130-190s Home regimen Basaglar 30U nightly and SSI Regular -continue Lantus 30u nightly, Lispro 8u with meals + SSI -consistent carb diet -follow closely Assessment & Plan (11/06/2021 3:23 PM CDT): Blood glucose 204-247 Home regimen Basaglar 30U nightly and SSI Regular Will increase inpatient Lantus to 30U, added mealtime Lispro 8U TID and continue mealtime SSI Follow closely Assessment & Plan (11/05/2021 2:24 PM CDT): Blood glucose 190's- 240's Home regimen Basaglar 30U nightly and SSI Regular Will increase inpatient Lantus to 25U and continue mealtime SSI Follow closely Assessment & Plan (09/11/2021 10:14 AM CDT): -Continue home glargine 30 units nightly -Continue 2 units TID with meals -SSI Assessment & Plan (09/10/2021 9:29 AM CDT): Continue home glargine 30 units nightly with SSI Continue to monitor - elevated blood sugars when first came to hospital suspect related to infection If blood sugar remain elevated will add Schedule meal time insulin Assessment & Plan (09/02/2021 11:53 AM CDT): HgbA1c 7.2 -remains hyperglycemic, will further increase meal time insulin -continue lantus 30u nightly + SSI -consistent carb diet Assessment & Plan (09/01/2021 9:15 AM CDT): HgbA1c 7.2 -hyperglycemic, will increase meal time insulin -continue lantus 30u nightly + SSI Assessment & Plan (08/31/2021 3:26 PM CDT): HgbA1c 7.2 -continue lantus 30u nightly + SSI -accu checks QID -consistent carb diet Assessment & Plan (08/28/2021 11:45 AM CDT): HgbA1c 7.2 -continue lantus 24u nightly, SSI -accu checks QID -consistent carb diet Assessment & Plan (08/27/2021 11:54 AM CDT): -BG improving -continue lantus 24u nightly -continue SSI -accu checks QID -consistent carb diet Assessment & Plan (08/26/2021 11:32 AM CDT): -BG improving -continue lantus 24u nightly -continue SSI -accu checks QID -consistent carb diet Assessment & Plan (08/25/2021 10:34 AM CDT): -BG remains suboptimal, however NPO for OR today--would reassess tomorrow and potentially increase lantus to home dose -lantus 24u nightly -continue SSI -accu checks QID -consistent carb diet Assessment & Plan (08/24/2021 2:15 PM CDT): -BG uncontrolled today -increase lantus to home dose of 30u nightly -continue SSI -accu checks QID -consistent carb diet Assessment & Plan (08/24/2021 6:56 AM CDT): -Decreased home lantus 30->24 U -started low SSI Assessment & Plan (08/23/2021 11:23 PM CDT): -Decreased home lantus 30->24 U -started low SSI Assessment & Plan (10/26/2020 9:13 AM CDT): Hgb A1c 7.6 Resume home regimen Assessment & Plan (10/24/2020 2:01 PM CDT): Hgb A1c 7.6 Blood glucose > 200 since admission Started on dose reduced Lantus (on Basaglar at home) Will increase lantus to 30U nightly SSI Follow closely Carbohydrate consistent diet Assessment & Plan (10/23/2020 2:21 PM CDT): Hgb A1c 7.6 Blood glucose > 200 since admission Started on dose reduced Lantus (on Basaglar at home) Will increase lantus SSI Follow Assessment & Plan (09/05/2020 3:06 PM CDT): - home glargine 30 qhs - SSI Assessment & Plan (08/02/2019 9:45 AM PROCESSING SPEC): -HgA1C well controlled -continue lantus and SSI Assessment & Plan (08/01/2019 10:36 AM PROCESSING SPEC): -HgA1C well controlled -continue lantus and SSI Assessment & Plan (07/31/2019 3:54 PM PROCESSING SPEC): Recheck hemglobin a1c - last one recored in september 2016- 7.5 Patient states hemglobin a1c controlled as outpatient Continue lantus 30 units at [facility] and SSI CAD in [place] artery 01/07/2014 025 Overview (02/23/2021): Coronary artery disease with history of coronary artery bypass graft with a MARIN to the LAD and free radial graft to obtuse marginal with multiple subsequent PCI to the right coronary artery. Assessment & Plan (05/27/2024 5:29 AM PROCESSING SPEC): SP CABG (MARIN-LAD, free radial graft-OM ) S/p PCI to RCA - hold asa, hold coreg - statins held previously due to prior abnormal LFTs - continue trop trend to peak; currently chest pain free though he did take nitro in last 2-3 days Assessment & Plan (04/19/2024 12:39 PM PROCESSING SPEC): SP CABG -Asymptomatic. -Negative troponin. -continue with ASA and coreg. -holding statins d/t abnormal LFTs Assessment & Plan (04/18/2024 1:41 PM PROCESSING SPEC): SP CABG -Asymptomatic. -Negative troponin. -continue with ASA and coreg. Assessment & Plan (04/18/2024 1:43 AM PROCESSING SPEC): SP CABG Asymptomatic. Negative troponin. CW ASA, coreg. Assessment & Plan (04/02/2023 8:42 AM CDT): Multivessel CAD s/p CABG 1999 -currently chest pain free -continue atorvastatin 80 mg daily -holding aspirin -continue Coreg Assessment & Plan (04/01/2023 12:36 PM CDT): Multivessel CAD s/p CABG 1999 -currently chest pain free -continue atorvastatin 80 mg daily -holding aspirin -continue Coreg Assessment & Plan (03/29/2023 3:06 PM CDT): Multivessel CAD s/p CABG 1999 -currently chest pain free -continue atorvastatin 80 mg daily -holding aspirin -continue Coreg Assessment & Plan (03/28/2023 11:41 AM CDT): Multivessel CAD s/p CABG 1999 -currently chest pain free -continue atorvastatin 80 mg daily -holding aspirin -continue Coreg Assessment & Plan (03/25/2023 12:39 PM CDT): Multivessel CAD s/p CABG 1999 -currently chest pain free -reduce ASA to 81 mg daily, continue atorvastatin 80 mg daily -continue Coreg Assessment & Plan (03/23/2023 3:45 PM CDT): Multivessel CAD s/p CABG 1999 -currently chest pain free -reduce ASA to 81 mg daily, continue atorvastatin 80 mg daily -continue Coreg Assessment & Plan (03/22/2023 2:36 PM CDT): Multivessel CAD s/p CABG 1999 -currently chest pain free -reduce ASA to 81 mg daily, continue atorvastatin 80 mg daily -continue Coreg Assessment & Plan (03/21/2023 10:39 AM CDT): Multivessel CAD s/p CABG 1999 -currently chest pain free -reduce ASA to 81 mg daily, continue atorvastatin 80 mg daily -continue Coreg Assessment & Plan (03/18/2023 1:08 PM CDT): Multivessel CAD s/p CABG 1999 -currently chest discomfort free -reduce ASA to 81 mg daily, continue atorvastatin 80 mg daily -continue Coreg Assessment & Plan (03/16/2023 11:25 AM CDT): Multivessel CAD s/p CABG 1999 -currently chest discomfort free -reduce ASA to 81 mg daily, continue atorvastatin 80 mg daily -continue Coreg Assessment & Plan (03/15/2023 11:57 AM CDT): Multivessel CAD s/p CABG 1999 -currently chest discomfort free -reduce ASA to 81 mg daily, continue atorvastatin 80 mg daily -continue Coreg Assessment & Plan (09/11/2021 9:27 AM CDT): -Currently with no anginal symptoms. Continue medication as above with ASA and atorvastatin 80 mg daily Assessment & Plan (09/10/2021 2:59 AM CDT): Currently with no anginal symptoms. Continue medication as above with ASA and atorvastatin 80 mg daily Assessment & Plan (08/25/2021 10:26 AM CDT): C/w home ASA, statin, carvedilol Assessment & Plan (08/24/2021 6:56 AM CDT): C/w home ASA, statin, carvedilol Assessment & Plan (08/23/2021 11:56 PM CDT): C/w home ASA, statin, carvedilol Assessment & Plan (07/31/2019 4:08 PM PROCESSING SPEC): Admitted with chest pain relieved in setting of taking NTG - noted to have hypertension at home when checking blood pressures Negative tropoinins Suspect chest pain is related to LVAD competing with elevated blood pressure Patient has history of ICM with CABG grafts : MARIN to LAD and Radial graft to OM with subsequent PCI to RCA. Continue to monitor to see if chest pain improves with better blood pressure control Continue Asa 325 mg , imdur 30 mg daily and carvedilol 12.5 mg bid. Peripheral vascular disease 01/07/2014 12/21/2021 Overview (02/23/2021): Converted unresolved ICD9, potential mismatch. PVD Converted unresolved ICD9, potential mismatch. Assessment & Plan (10/25/2020 10:37 AM CDT): Blood pressure and symptoms improved Titrated antihypertensives: Continue carvedilol, and losartan Increase amlodipine to 10mg daily and wean off hydralazine Imdur increased to 90mg daily Held diuretics today for VENU Assessment & Plan (10/24/2020 2:04 PM CDT): Blood pressure and symptoms improved Titrated antihypertensives: Continue carvedilol, and losartan Increase amlodipine to 10mg daily and wean off hydralazine Imdur increased to 90mg daily Held diuretics today for VENU Assessment & Plan (10/23/2020 2:18 PM CDT): Blood pressure and symptoms improved Continue carvedilol, and losartan Add amlodipine and wean off hydralazine Transition to oral diuretics Proteinuria 10/13/2013 12/21/2021 Overview (02/23/2021): PROTEINURIA PROTEINURIA Lung mass 10/13/2013 12/21/2021 Overview (02/23/2021): Pulmonary nodule Vitamin D deficiency 08/16/2013 022 Drug indicated 04/19/2013 03/02/2018 Overview (09/03/2016): LONG-TERM USE MEDS NEC Benign hypertension 05/18/2006 12/22/19 22 Overview (09/02/2016): BENIGN HYPERTENSION Assessment & Plan (09/02/2021 12:04 PM CDT): -continue home regimen: hydralazine 50mg tid, imdur 90mg daily, carvedilol 25mg bid -increase losartan to 50 mg daily Assessment & Plan (09/01/2021 9:23 AM CDT): -continue home regimen: hydralazine 50mg tid, imdur 90mg daily, carvedilol 25mg bid -increase losartan to 25mg daily Assessment & Plan (08/31/2021 3:36 PM CDT): -continue home regimen: hydralazine 50mg tid, imdur 90mg daily, carvedilol 25mg bid -resume losartan as above Assessment & Plan (08/28/2021 11:55 AM CDT): -continue home regimen: hydralazine 50mg tid, imdur 90mg daily, carvedilol 25mg bid Assessment & Plan (08/27/2021 11:57 AM CDT): -continue home regimen: hydralazine 50mg tid, imdur 90mg daily, carvedilol 25mg bid Assessment & Plan (08/26/2021 12:04 PM CDT): -continue home regimen: hydralazine 50mg tid, imdur 90mg daily, carvedilol 25mg bid Assessment & Plan (08/25/2021 10:26 AM CDT): -continue home regimen: hydralazine 50mg tid, imdur 90mg daily, carvedilol 25mg bid Assessment & Plan (08/24/2021 2:22 PM CDT): -continue home regimen: hydralazine 50mg tid, imdur 90mg daily, carvedilol 25mg bid Assessment & Plan (08/24/2021 6:56 AM CDT): C/w home hydralazine 50mg bid, imdur 90mg every day, carvedilol 25mg bid Assessment & Plan (08/23/2021 11:20 PM CDT): C/w home hydralazine 50mg bid, imdur 90mg every day, carvedilol 25mg bid Shortness of breath 12/22/19 22 Immunizations Immunization Administration Dates Next Due Influenza, Quad, Adjuvantate d, Intramuscular 05/04/2021 Influenza, Quadrivalent, Hig h Dose, Preservative Free, Intrr 03/18/2023,03/08/2022,02/25/2020 Influenza, Trivalent, High D ose, Split, Preservative Free, Intramuscular 04/20/2024,02/26/2019,04/10/2018,02/22 Influenza, Trivalent, Preser vative Free, Intramuscular 04/05/2016,02/19/2011,05/15/2010,03/16 Influenza, Unspecified 02/26/2019,2017,02/22/2017,03/30,02/23/2015,02/19/2011,05/15/2010 ,03/16/2007 Pneumococcal Conjugate PCV 13 06/26/2020 Pneumococcal Polysaccharide PPV23 03/06/2014, Tdap 11/23/2023,06/26/2020 ZOSTER Recombinant 11/23/2023,,08/25/2018,08/12 Social History Tobacco Use Types Packs/Day Years Used Date Smoking Tobacco: Never Passive Smoke Exposure: Never Smokeless Tobacco: Never Tobacco Cessation:Counseling Given: Not Answered Alcohol Use Standard Drinks/Week Comments No 0 (1 standard drink = 0.6 oz pur e alcohol) [facility] [employer] Answer Date Recorded In the past 12 months has [employer], gas, oil, or water [employer] threatened to shut off services in your home? No 08/25/2024 Social Connection and Isolat ion Panel [NHANES] Answer Date Recorded In a typical week, how many times do you talk on the phone with family, friends, or neighbors? More than three times a week 08/25/2024 How often do you get togethe r with friends or relatives? More than three times a week 08/25/2024 How often do you attend chur ch or sikhism services? More than 4 times per year 08/25/2024 Do you belong to any clubs o r organizations such as christianity groups, unions, fraternal or athletic groups, or school groups? Yes 08/25/2024 How often do you attend meet ings of the clubs or organizations you belong to? More than 4 times per year 08/25/2024 Are you , , di vorced, , never , or living with a partner? 08/25/2024 AUDIT-C Answer Date Recorded Q1: How often do you have a drink containing alcohol? Never 05/29/2024 Q2: How many drinks containi ng alcohol do you have on a typical day when you are drinking? Patient does not drink Q3: How often do you have si x or more drinks on one occasion? Never 05/29/2024 Overall Financial Resource Strain (CARDIA) Answe r Date Recorded How hard is it for you to pa y for the very basics like food, housing, medical care, and heating? Not hard at all 08/25/2024 PHQ-2 Answer Date Recorded PHQ-2 Total Score (If total score is 3 or more points, staff should administer the PHQ-9) 0 06/04/2024 Hunger Vital Sign Answer Date Recorded Within the past 12 months, y ou worried that your food would run out before you got the money to buy more. Never true 08/26/19 25 Within the past 12 months, t he food you bought just didn't last and you didn't have money to get more. Never true 08/25/2024 PRAPARE - Transportation Answer Date Re corded In the past 12 months, has l ack of transportation kept you from medical appointments or from getting medications? No 07/29 In the past 12 months, has l ack of transportation kept you from meetings, work, or from getting things needed for daily living? No 08/25/2024 Housing Stability Vital Sign Answer David e [...] place to sleep or slept in a intermediate (including now)? Patient refused 03/23/2023 Housing Stability Vital Sign Answer David e Recorded In the last 12 months, was t here a time when you were not able to pay the mortgage or rent on time? No 08/25/2024 In the past 12 months, how m any times have you moved where you were living? 0 08/25/2024 At any time in the past 12 m [facility], were you homeless or living in a intermediate (including now)? No 08/25/2024 Personal Safety Answer Date Recorded Have you ever been in or are you currently in a harmful physical or emotional relationship or is someone making you feel afraid or unsafe? Denies 08/23/2024 Sex and Gender Information Value Date Recorded Sex Assigned at Not on file Legal Sex Male 12:11 AM PROCESSING SPEC Gender Identity Not on file Sexual Orientation Not on file Last Filed Vital Signs Vital Sign Reading Time Taken Comments Blood Pressure 82/0 10/25/2024 10:33 AM CDT Pulse 74 10/25/2024 9:14 AM CDT Temperature 36.4 C (97.5 F) 08/31/2024 11:29 AM CDT Respiratory Rate 18 08/31/2024 11:29 AM CDT Oxygen Saturation 94% 10/25/2024 9:14 AM CDT Inhaled Oxygen Concentration - - Weight 105.7 kg (233 lb) 10/25/2024 9:14 AM CDT with Device Height 177.8 cm (5' 10) 10/25/2024 9:11 AM CDT Body Mass Index 33.43 10/25/2024 9:11 AM CDT Plan of Treatment Not on file Medical Devices Implanted Type Area Home Connect Lpn Device Identifier Shelf Expiration Date Model / Serial / Lot Icd ICD Left: Chest Wall Medtronic Lvad LVAD Left: Abdomen [employer]/C R Bard Ventralight St Sepra 8x6in Uncoated Monofilament Lightweight [id number] - [id number] Implanted:Qty: 1 on 03/22/2023 by Tony Blood MD at [facility] Mesh N/A: Abdomen [employer] [id number] 09/24/2024 [id number] / / [id number] Procedures Procedure Name Priority Date/Time Associated Diagnosis Comments PROTIME-INR Routine 11/06/2024 COMPREHENSIVE METABOLIC PANEL Routine 11/05/2024 CBC WITH AUTO DIFFERENTIAL Routine 11/05/2024 PROTIME-INR Routine 11/05/2024 PROTIME-INR Routine 11/02/2024 CBC WITH AUTO DIFFERENTIAL Routine 10/29/2024 11:38 AM CDT COMPREHENSIVE METABOLIC PANEL Routine 10/29/2024 11:38 AM CDT PROTIME-INR Routine 10/29/2024 11:38 AM CDT PROTIME-INR Routine 10/24/2024 CBC WITH AUTO DIFFERENTIAL Routine 10/23/2024 12:15 PM CDT PROTIME-INR Routine 10/23/2024 COMPREHENSIVE METABOLIC PANEL Routine 10/23/2024 PROTIME-INR Routine 10/23/2024 COMPREHENSIVE METABOLIC PANEL Routine 10/16/2024 CBC WITH AUTO DIFFERENTIAL Routine 10/16/2024 PROTIME-INR Routine 10/16/2024 PROTIME-INR Routine 10/11/2024 CBC WITH AUTO DIFFERENTIAL Routine 10/10/2024 1:05 PM CDT COMPREHENSIVE METABOLIC PANEL Routine 10/10/2024 1:05 PM CDT PROTIME-INR Routine 10/10/2024 1:05 PM CDT PROTIME-INR Routine 10/02/2024 COMPREHENSIVE METABOLIC PANEL Routine 10/01/2024 CBC WITH AUTO DIFFERENTIAL Routine 10/01/2024 PROTIME-INR Routine 10/01/2024 SURGICAL PATHOLOGY Routine 09/25/2024 12 :00 AM CDT Neoplasm of skin PROTIME-INR Routine 09/24/2024 1:30 PM CDT COMPREHENSIVE METABOLIC PANEL Routine 09/24/2024 1:30 PM CDT CBC WITH AUTO DIFFERENTIAL Routine 09/24/2024 1:30 PM CDT PROTIME-INR Routine 09/24/2024 XR KNEE LEFT 4 OR MORE VIEWS Schedule Routine, Read Routine (OP Routine) 09/20/2024 2:05 PM CDT Left knee pain, unspecified chronicity PROTIME-INR Routine 09/18/2024 COMPREHENSIVE METABOLIC PANEL Routine 09/17/2024 CBC WITH AUTO DIFFERENTIAL Routine 09/17/2024 PROTIME-INR Routine 09/17/2024 PROTIME-INR Routine 09/11/2024 COMPREHENSIVE METABOLIC PANEL Routine 09/10/2024 PROTIME-INR Routine 09/10/2024 CBC WITH AUTO DIFFERENTIAL Routine 09/10/2024 PROTIME-INR Routine 09/07/2024 COMPREHENSIVE METABOLIC PANEL Routine 09/06/2024 CBC WITH AUTO DIFFERENTIAL Routine 09/06/2024 PROTIME-INR Routine 09/06/2024 POCT GLUCOSE DEVICE Routine 08/31/2024 1 1:29 AM CDT POCT GLUCOSE DEVICE Routine 08/31/2024 7 :52 AM CDT EGFR Routine 08/31/2024 4:24 AM CDT DIFFERENTIAL AUTO Routine 08/31/2024 4:2 4 AM CDT MAGNESIUM Routine 08/31/2024 4:24 AM CDT LACTATE Routine 08/31/2024 4:24 AM CDT PROTIME-INR Routine 08/31/2024 4:24 AM CDT CBC WITH AUTO DIFFERENTIAL Routine 08/31/2024 4:24 AM CDT BASIC METABOLIC PANEL Routine 08/31/2024 4:24 AM CDT POCT GLUCOSE DEVICE Routine 08/30/2024 8 :42 PM CDT POCT GLUCOSE DEVICE Routine 08/30/2024 4 :51 PM CDT POCT GLUCOSE DEVICE Routine 08/30/2024 1 1:14 AM CDT POCT GLUCOSE DEVICE Routine 08/30/2024 7 :32 AM CDT EGFR Routine 08/30/2024 5:20 AM CDT DIFFERENTIAL AUTO Routine 08/30/2024 5:2 0 AM CDT MAGNESIUM Routine 08/30/2024 5:20 AM CDT LACTATE Routine 08/30/2024 5:20 AM CDT CBC WITH AUTO DIFFERENTIAL Routine 08/30/2024 5:20 AM CDT BASIC METABOLIC PANEL Routine 08/30/2024 5:20 AM CDT PROTIME-INR Timed 08/30/2024 5:20 AM CDT PROTIME-INR Routine 08/30/2024 1:10 AM CDT POCT GLUCOSE DEVICE Routine 08/29/2024 8 :22 PM CDT POCT GLUCOSE DEVICE Routine 08/29/2024 4 :41 PM CDT POCT GLUCOSE DEVICE Routine 08/29/2024 1 1:43 AM CDT APTT STAT 08/29/2024 9:58 AM CDT POCT GLUCOSE DEVICE Routine 08/29/2024 7 :37 AM CDT EGFR Routine 08/29/2024 4:06 AM CDT DIFFERENTIAL AUTO Routine 08/29/2024 4:0 6 AM CDT LACTATE Routine 08/29/2024 4:06 AM CDT PROTIME-INR Routine 08/29/2024 4:06 AM CDT CBC WITH AUTO DIFFERENTIAL Routine 08/29/2024 4:06 AM CDT BASIC METABOLIC PANEL Routine 08/29/2024 4:06 AM CDT MAGNESIUM Routine 08/29/2024 4:06 AM CDT CRITICAL RESULT CALLBACK HEMATOLOGY STAT 08/28/2024 10:08 PM CDT APTT STAT 08/28/2024 10:08 PM CDT POCT GLUCOSE DEVICE Routine 08/28/2024 7 :58 PM CDT POCT GLUCOSE DEVICE Routine 08/28/2024 4 :56 PM CDT POCT GLUCOSE DEVICE Routine 08/28/2024 1 2:03 PM CDT POCT GLUCOSE DEVICE Routine 08/28/2024 7 :45 AM CDT POCT GLUCOSE DEVICE Routine 08/28/2024 5 :39 AM CDT EGFR Routine 08/28/2024 3:06 AM CDT DIFFERENTIAL AUTO Routine 08/28/2024 3:0 6 AM CDT LACTATE Routine 08/28/2024 3:06 AM CDT PROTIME-INR Routine 08/28/2024 3:06 AM CDT CBC WITH AUTO DIFFERENTIAL Routine 08/28/2024 3:06 AM CDT BASIC METABOLIC PANEL Routine 08/28/2024 3:06 AM CDT MAGNESIUM Routine 08/28/2024 3:06 AM CDT POCT GLUCOSE DEVICE Routine 08/28/2024 2 :51 AM CDT POCT GLUCOSE DEVICE Routine 08/27/2024 1 1:09 PM CDT POCT GLUCOSE DEVICE Routine 08/27/2024 7 :46 PM CDT POCT GLUCOSE DEVICE Routine 08/27/2024 4 :57 PM CDT POCT GLUCOSE DEVICE Routine 08/27/2024 1 0:58 AM CDT APTT STAT 08/27/2024 10:28 AM CDT CBC WITHOUT DIFFERENTIAL STAT 08/27/2024 10:28 AM CDT PROTIME-INR STAT 08/27/2024 10:28 AM CDT POCT GLUCOSE DEVICE Routine 08/27/2024 7 :26 AM CDT POCT GLUCOSE DEVICE Routine 08/27/2024 4 :40 AM CDT EGFR Routine 08/27/2024 4:39 AM CDT DIFFERENTIAL AUTO Routine 08/27/2024 4:3 9 AM CDT LACTATE Routine 08/27/2024 4:39 AM CDT PROTIME-INR Routine 08/27/2024 4:39 AM CDT CBC WITH AUTO DIFFERENTIAL Routine 08/27/2024 4:39 AM CDT BASIC METABOLIC PANEL Routine 08/27/2024 4:39 AM CDT MAGNESIUM Routine 08/27/2024 4:39 AM CDT POCT GLUCOSE DEVICE Routine 08/27/2024 1 2:39 AM CDT POCT GLUCOSE DEVICE Routine 08/27/2024 1 2:07 AM CDT POCT GLUCOSE DEVICE Routine 08/26/2024 8 :05 PM CDT POCT GLUCOSE DEVICE Routine 08/26/2024 4 :41 PM CDT POCT GLUCOSE DEVICE Routine 08/26/2024 1 1:54 AM CDT POCT GLUCOSE DEVICE Routine 08/26/2024 8 :01 AM CDT POCT GLUCOSE DEVICE Routine 08/26/2024 4 :06 AM CDT EGFR Routine 08/26/2024 4:06 AM CDT DIFFERENTIAL AUTO Routine 08/26/2024 4:0 6 AM CDT LACTATE Routine 08/26/2024 4:06 AM CDT PROTIME-INR Routine 08/26/2024 4:06 AM CDT CBC WITH AUTO DIFFERENTIAL Routine 08/26/2024 4:06 AM CDT BASIC METABOLIC PANEL Routine 08/26/2024 4:06 AM CDT MAGNESIUM Routine 08/26/2024 4:06 AM CDT POCT GLUCOSE DEVICE Routine 08/25/2024 1 1:34 PM CDT POCT GLUCOSE DEVICE Routine 08/25/2024 8 :12 PM CDT POCT GLUCOSE DEVICE Routine 08/25/2024 4 :48 PM CDT POCT GLUCOSE DEVICE Routine 08/25/2024 1 1:40 AM CDT POCT GLUCOSE DEVICE Routine 08/25/2024 9 :08 AM CDT EGFR Routine 08/24/2024 8:13 PM CDT DIFFERENTIAL AUTO Routine 08/24/2024 8:1 3 PM CDT LACTATE Routine 08/24/2024 8:13 PM CDT PROTIME-INR Routine 08/24/2024 8:13 PM CDT CBC WITH AUTO DIFFERENTIAL Routine 08/24/2024 8:13 PM CDT BASIC METABOLIC PANEL Routine 08/24/2024 8:13 PM CDT MAGNESIUM Routine 08/24/2024 8:13 PM CDT POCT GLUCOSE DEVICE Routine 08/24/2024 8 :12 PM CDT INFECTION PREVENTION VRE CULTURE Routine 08/24/2024 7:01 PM CDT C. DIFFICILE TESTING STAT 08/24/2024 7:01 PM CDT LACTATE STAT 08/24/2024 6:34 PM CDT CBC WITHOUT DIFFERENTIAL STAT 08/24/2024 6:34 PM CDT POCT GLUCOSE DEVICE Routine 08/24/2024 4 :51 PM CDT TYPE AND SCREEN Timed 08/24/2024 12:03 PM CDT POCT GLUCOSE DEVICE Routine 08/24/2024 1 1:16 AM CDT TYPE AND SCREEN Timed 08/24/2024 10:11 AM CDT CBC WITHOUT DIFFERENTIAL STAT 08/24/2024 10:11 AM CDT PROTIME-INR STAT 08/24/2024 10:11 AM CDT POCT GLUCOSE DEVICE Routine 08/24/2024 8 :26 AM CDT POCT GLUCOSE DEVICE Routine 08/24/2024 2 :45 AM CDT LACTATE STAT 08/23/2024 10:17 PM CDT IRON PROFILE W/ IBC Routine 08/23/2024 8 :32 PM CDT FIBRINOGEN STAT 08/23/2024 8:32 PM CDT LACTATE DEHYDROGENASE Routine 08/23/2024 8:32 PM CDT TROPONIN I HIGH-SENSITIVITY 4-HOUR Timed 08/23/2024 7:[address] ABDOMEN PELVIS W WO CONTRAST ED 08/23/2024 7:35 PM CDT POCT CREATININE - DEVICE Routine 08/23/2024 5:44 PM CDT URINALYSIS, MICROSCOPIC ONLY STAT 08/23/2024 5:38 PM CDT URINALYSIS AND REFLEX TO MICROSCOPIC AND CULTURE STAT 08/23/2024 5:38 PM CDT ECG 12-LEAD STAT 08/23/2024 4:53 PM CDT POCT GLUCOSE DEVICE Routine 08/23/2024 4 :50 PM CDT HEMOGLOBIN A1C STAT 08/23/2024 4:33 PM CDT EGFR STAT 08/23/2024 4:33 PM CDT DIFFERENTIAL AUTO STAT 08/23/2024 4:3 3 PM CDT TROPONIN I HIGH-SENSITIVITY SERIES (BASELINE, 2HR, 4HR, 6HR) STAT 08/23/2024 4:33 PM CDT TYPE AND SCREEN STAT 08/23/2024 4:33 PM CDT APTT STAT 08/23/2024 4:33 PM CDT PROTIME-INR STAT 08/23/2024 4:33 PM CDT COMPREHENSIVE METABOLIC PANEL STAT 08/23/2024 4:33 PM CDT CBC WITH AUTO DIFFERENTIAL STAT 08/23/2024 4:33 PM CDT COMPREHENSIVE METABOLIC PANEL Routine 08/20/2024 9:34 AM CDT PROTIME-INR Routine 08/20/2024 9:34 AM CDT CBC WITH AUTO DIFFERENTIAL Routine 08/20/2024 9:34 AM CDT PROTIME-INR Routine 08/20/2024 CBC WITH AUTO DIFFERENTIAL Routine 08/20/2024 COMPREHENSIVE METABOLIC PANEL Routine 08/20/2024 PROTIME-INR Routine 08/14/2024 CBC WITH AUTO DIFFERENTIAL Routine 08/13/2024 1:17 PM CDT COMPREHENSIVE METABOLIC PANEL Routine 08/13/2024 1:17 PM CDT PROTIME-INR Routine 08/13/2024 1:17 PM CDT CBC WITH AUTO DIFFERENTIAL Routine 08/13/2024 COMPREHENSIVE METABOLIC PANEL Routine 08/13/2024 PROTIME-INR Routine 08/07/2024 CBC WITH AUTO DIFFERENTIAL Routine 08/06/2024 11:27 AM CDT COMPREHENSIVE METABOLIC PANEL Routine 08/06/2024 11:27 AM CDT PROTIME-INR Routine 08/06/2024 11:27 AM CDT CBC WITH AUTO DIFFERENTIAL Routine 08/06/2024 COMPREHENSIVE METABOLIC PANEL Routine 08/06/2024 FLEXIBLE SIGMOIDOSCOPY 05/29/2024 9:01 AM PROCESSING SPEC LIPID PANEL STAT 05/26/2024 5:30 PM PROCESSING SPEC HEPATITIS C RNA, QUANTITATIVE, PCR STAT 04/17/2024 6:26 PM PROCESSING SPEC COLONOSCOPY REPORT 10/16/2013 from Last 3 Months or Most Recently Relevant to Health Maintenance Results * (ABNORMAL) Protime-INR (11/06/2024) INR 1.60(A) 0.90 - 1.10 Blood Historical Provider LAB BLOOD ORDERABLES Maia l Result * (ABNORMAL) CBC with auto differential (11/05/2024) SCRIBED WBC 7.6 3.8 - 10.8 k/cumm [facility] SCRIBED Hemoglobin 11.9(A) 13.2 - 17.1 g/dL [facility] SCRIBED Hematocrit 38.0(A) 38.5 - 50.0 % [facility] SCRIBED Platelets 179 140 - 400 k/cumm [facility] Blood 11/05/2024 Alfredo Spaulding MD LAB BLOOD ORDERABLES Final Re sult [facility] * (ABNORMAL) Protime-INR (11/05/2024) SCRIBED PT 16.5(A) 9.0 - 11.5 sec [facility] SCRIBED INR 1.6 0.9 - 4.0 sec [facility] Blood 11/05/2024 Alfredo Spaulding MD LAB BLOOD ORDERABLES Final Re sult [facility] * (ABNORMAL) Comprehensive metabolic panel (11/05/2024) SCRIBED Sodium 140 135 - 146 mmol/L [facility] SCRIBED Potassium 4.1 3.5 - 5.3 mmol/L [facility] SCRIBED Chloride 105 98 - 110 mmol/L [facility] SCRIBED Carbon Dioxide 26 20 - 32 mmol/L [facility] SCRIBED Urea Nitrogen (BUN) 20 7 - 25 mg/dl [facility] SCRIBED Creatinine 1.05 0.70 - 1.28 mg/dl [facility] SCRIBED Glucose 54(A) 65 - 99 mg/dl [facility] SCRIBED Calcium 8.5(A) 8.6 - 10.3 mg/dl [facility] SCRIBED Bilirubin 0.6 0.2 - 1.2 mg/dl [facility] SCRIBED Plasma Protein 6.2 6.1 - 8.1 g/dl [facility] SCRIBED Albumin 3.7 3.6 - 5.1 g/dl [facility] SCRIBED Alkaline Phosphatase 110 35 - 144 Units/L [facility] SCRIBED Alanine Transaminase (ALT) 57(A) 9 - 46 Units/L [facility] SCRIBED Aspartate Transaminase (AST) 43(A) 10 - 35 Units/L [facility] SCRIBED eGFR in NonAfrican Swiss 74 >=60 [facility] Globulin 2.5 1.9 - 3.7 g/dL (calc) [facility] Alb/glob ratio 1.5 1.0 - 2.5 [facility] Blood 11/05/2024 Alfredo Spaulding MD LAB BLOOD ORDERABLES Final Re sult [facility] * (ABNORMAL) Protime-INR (11/02/2024) INR 3.00(A) 0.90 - 1.10 Blood [facility] Provider LAB BLOOD ORDERABLES Maia l Result * (ABNORMAL) CBC with auto differential (10/29/2024 11:38 AM CDT) Pathologist [facility] SCRIBED WBC 6.1 3.8 - 10.8 k/cumm [facility] SCR[facility]ED Hemoglobin 11.8(A) 13.2 - 17.1 g/dL [facility] SCRIBED Hematocrit 37.0(A) 38.5 - 50.0 % [facility] SCRIBED Platelets 190 140 - 400 k/cumm [facility] SCRIBED Eosinophils Abs 689(A) 15 - 500 k/cumm [facility] Blood 10/29/2024 11:3 8 AM CDT Suresh Verma MD LAB BLOOD ORDERABLES Fin al Result Performing Organization Address [facility]/ZIP Co de Phone Number [facility] * (ABNORMAL) Protime-INR (10/29/2024 11:38 AM CDT) Pathologist [facility] SCRIBED PT 30.2(A) 9.0 - 11.5 sec [facility] SCRIBED INR 3.0 2.0 - 3.0 sec [facility] Blood 10/29/2024 11:3 8 AM CDT us Suresh Verma MD LAB BLOOD ORDERABLES Fin al Result Performing Organization Address [facility] Co de Phone Number [facility] * (ABNORMAL) Comprehensive metabolic panel (10/29/2024 11:38 AM CDT) Pathologist [facility] SCRIBED Sodium 138 135 - 146 mmol/L [facility] S[facility]ED Potassium 4.2 3.5 - 5.3 mmol/L [facility] SCRIBED Chloride 105 98 - 110 mmol/L [facility] SCRIBED Carbon Dioxide 27 20 - 32 mmol/L [facility] SCRIBED Urea Nitrogen (BUN) 23 7 - 25 mg/dl [facility] S[facility] Creatinine 1.19 0.70 - 1.28 mg/dl [facility] SCRIBED Glucose 141(A) 65 - 99 mg/dl [facility] S[facility] Calcium 8.4(A) 8.6 - 10.3 mg/dl [facility] SCR[facility] Bilirubin 0.4 0.2 - 1.2 mg/dl [facility] SCR[facility] Plasma Protein 5.9(A) 6.1 - 8.1 g/dl [facility] S[facility] Albumin 3.6 3.6 - 5.1 g/dl [facility] S[facility] Alkaline Phosphatase 115 35 - 144 Units/L [facility] SCR[facility]ED Alanine Transaminase (ALT) 58(A) 9 - 46 Units/L [facility] SCRIBED Aspartate Transaminase (AST) 47(A) 10 - 35 Units/L [facility] SCRIBED eGFR in NonAfrican Swiss 83 >=60 [facility] Blood 10/29/2024 11:3 8 AM CDT Result [facility] Suresh Verma MD LAB BLOOD ORDERABLES Fin al Result Performing Organization Address [facility] de Phone Number [facility] * (ABNORMAL) Protime-INR (10/24/2024) INR 3.70(A) 0.90 - 1.10 Blood Result [facility] Crys Avila MD LAB BLOOD ORDERABLES Maia l Result * (ABNORMAL) CBC with auto differential (10/23/2024 12:15 PM CDT) SCRIBED WBC 6.36 4.5 - 11.0 k/cumm TXP NO LAB FOUND SCRIBED Hemoglobin 11.2(A) 14.0 - 18.0 g/dL [facility]P NO LAB FOUND SCRIBED Hematocrit 346(A) 43.0 - 54.0 % TXP NO LAB FOUND SCRIBED Platelets 206 130 - 400 k/cumm TXP NO LAB FOUND Blood 10/23/2024 12:1 5 PM CDT Result [facility] Suresh Verma MD LAB BLOOD ORDERABLES Fin al Result Performing Organization Address City/[facility] Co de Phone Number TXP NO LAB FOUND * (ABNORMAL) Protime-INR (10/23/2024) INR 4.70(A) 0.90 - 1.10 Blood Crys Provider LAB BLOOD ORDERABLES Maia l Result * (ABNORMAL) Protime-INR (10/23/2024) SCRIBED PT 40.6(A) 10.2 - 12.9 sec TXP NO LAB FOUND SCRIBED INR 3.7(A) 2.0 - 3.5 sec TXP NO LAB FOUND Blood 10/23/2024 Suresh Verma MD LAB BLOOD ORDERABLES Fin al Result TXP NO LAB FOUND * (ABNORMAL) Comprehensive metabolic panel (10/23/2024) SCRIBED Sodium 142 136 - 145 mmol/L TXP NO LAB FOUND SCRIBED Potassium 4.0 3.5 - 5.1 mmol/L TXP NO LAB FOUND SCRIBED Chloride 108 97 - 115 mmol/L TXP NO LAB FOUND SCRIBED Carbon Dioxide 24.2 21 - 32 mmol/L TXP NO LAB FOUND SCRIBED Anion Gap 9.8 2 - 10 mmol/L TXP NO LAB FOUND SCRIBED Urea Nitrogen (BUN) 24(A) 7 - 18 mg/dl TXP NO LAB FOUND SCRIBED Creatinine 1.26 0.7 - 1.3 mg/dl TXP NO LAB FOUND SCRIBED Glucose 129(A) 70 - 99 mg/dl TXP NO LAB FOUND SCRIBED Calcium 8.4(A) 8.5 - 10.1 mg/dl TXP NO LAB FOUND SCRIBED Bilirubin 0.4 0.2 - 1.2 mg/dl TXP NO LAB FOUND SCRIBED Plasma Protein 6.2(A) 6.4 - 8.2 g/dl TXP NO LAB FOUND SCRIBED Albumin 3.2(A) 3.4 - 5.0 g/dl TXP NO LAB FOUND SCRIBED Alkaline Phosphatase 151(A) 50 - 136 Units/L TXP NO LAB FOUND SCRIBED Alanine Transaminase (ALT) 76(A) 16 - 60 Units/L TXP NO LAB FOUND SCRIBED Aspartate Transaminase (AST) 58(A) 15 - 37 Units/L TXP NO LAB FOUND SCRIBED eGFR in NonAfrican Swiss 59 >90 TXP NO LAB FOUND BUN_Creat Ratio 19.0 6 - 26 TXP NO LAB FOUND Alb/glob ratio 1.1 1.0 - 2.0 TXP N O LAB FOUND Blood 10/23/2024 us Suresh Verma MD LAB BLOOD ORDERABLES Fin al Result Performing Organization Address [facility] Co de Phone Number TXP NO LAB FOUND * (ABNORMAL) CBC with auto differential (10/16/2024) SCRIBED WBC 6.4 3.8 - 10.8 k/cumm [facility] SCRIBED Hemoglobin 11.2(A) 13.2 - 17.1 g/dL [facility] SCRIBED Hematocrit 35.4(A) 38.5 - 50.0 % [facility] SCRIBED Platelets 191 140 - 400 k/cumm [facility] Blood 10/16/2024 us Suresh Verma MD LAB BLOOD ORDERABLES Fin al Result Performing Organization Address [facility] de Phone Number [facility] * (ABNORMAL) Protime-INR (10/16/2024) SCRIBED PT 45.5(A) 9.0 - 11.5 sec [facility] SCRIBED INR 4.7(A) 2.0 - 3.0 sec [facility] Blood 10/16/2024 us Suresh Verma MD LAB BLOOD ORDERABLES Fin al Result Performing Organization Address [facility] de Phone Number [facility] * (ABNORMAL) Comprehensive metabolic panel (10/16/2024) SCRIBED Sodium 139 135 - 148 mmol/L [facility] SCRIBED Potassium 4.0 3.5 - 5.3 mmol/L [facility] SCRIBED Chloride 106 98 - 110 mmol/L [facility] SCRIBED Carbon Dioxide 27 20 - 32 mmol/L [facility] SCR[facility] Urea Nitrogen (BUN) 21 7 - 25 mg/dl [facility] SCRIBED Creatinine 1.15 0.70 - 1.28 mg/dl [facility] SCRIBED Glucose 120(A) 65 - 99 mg/dl [facility] SCRIBED Calcium 8.3(A) 8.6 - 10.3 mg/dl [facility] SCRIBED Bilirubin 0.5 0.2 - 1.2 mg/dl [facility] SCRIBED Plasma Protein 6.1 6.1 - 8.1 g/dl [facility] SCRIBED Albumin 3.6 3.6 - 5.1 g/dl [facility] SCRIBED Alkaline Phosphatase 114 35 - 144 Units/L [facility] SCRIBED Alanine Transaminase (ALT) 53(A) 9 - 46 Units/L [facility] SCRIBED Aspartate Transaminase (AST) 50(A) 10 - 35 Units/L [facility] SCRIBED eGFR in NonAfrican Swiss 65 >60 [facility] A/G Ratio 1.4 1.0 - 2.5 [facility] Blood 10/16/2024 Result [facility] Suresh Verma MD LAB BLOOD ORDERABLES Ayo leyla Result - Final [facility] * (ABNORMAL) Protime-INR (10/11/2024) Pathologist [facility] INR 1.60(A) 0.90 - 1.10 Blood Result [facility] Crys Avila MD LAB BLOOD ORDERABLES Maia l Result * (ABNORMAL) CBC with auto differential (10/10/2024 1:05 PM CDT) SCRIBED WBC 6.6 3.8 - 10.8 k/cumm [facility] SCRIBED Hemoglobin 11.1(A) 13.2 - 17.1 g/dL [facility] SCRIBED Hematocrit 33.8(A) 38.5 - 50.0 % [facility] SCRIBED Platelets 187 140 - 400 k/cumm [facility] Blood 10/10/2024 1:05 PM CDT Result [facility] Suresh Verma MD LAB BLOOD ORDERABLES Fin al Result Performing Organization Address [facility] de Phone Number [facility] * (ABNORMAL) Protime-INR (10/10/2024 1:05 PM CDT) SCRIBED PT 16.9(A) 9.0 - 11.5 sec [facility] SCRIB[facility] INR 1.6(A) 2.0 - 3.0 sec [facility] Blood 10/10/2024 1:05 PM CDT us Suresh Verma MD LAB BLOOD ORDERABLES Fin al Result Performing Organization Address [facility] de Phone Number [facility] * (ABNORMAL) Comprehensive metabolic panel (10/10/2024 1:05 PM CDT) SCRIBED Sodium 137 135 - 146 mmol/L [facility] SCRIBED Potassium 4.2 3.5 - 5.3 mmol/L [facility] SCRIBED Chloride 103 98 - 110 mmol/L [facility] SCRIBED Carbon Dioxide 27 20 - 32 mmol/L [facility] SCRIB[facility] Urea Nitrogen (BUN) 23 7 - 25 mg/dl [facility] SCRIB[facility] Creatinine 1.11 0.70 - 1.28 mg/dl [facility] SCRIBED Glucose 112(A) 65 - 99 mg/dl [facility] SCRIBED Calcium 8.5(A) 8.6 - 10.3 mg/dl [facility] SCRIBED Bilirubin 0.6 0.2 - 1.2 mg/dl [facility] SCRIB[facility] Plasma Protein 6.1 6.1 - 8.1 g/dl [facility] SCR[facility] Albumin 3.7 3.6 - 5.1 g/dl [facility] SCRIBED Alkaline Phosphatase 108 65 - 144 Units/L [facility] SCRIBED Alanine Transaminase (ALT) 50(A) 9 - 46 Units/L [facility] SCRIBED Aspartate Transaminase (AST) 40(A) 10 - 35 Units/L [facility] SCRIBED eGFR in NonAfrican Swiss 69 >=60 [facility] Blood 10/10/2024 1:05 PM CDT Suresh Verma MD LAB BLOOD ORDERABLES Fin al Result Performing Organization Address [facility] de Phone Number [facility] * (ABNORMAL) Protime-INR (10/02/2024) INR 1.30(A) 0.90 - 1.10 Blood Crys Avila MD LAB BLOOD ORDERABLES Maia l Result * (ABNORMAL) CBC with auto differential (10/01/2024) SCRIBED WBC 6.0 3.8 - 10.8 k/cumm [facility] SCRIBED Hemoglobin 10.6(A) 13.2 - 17.1 g/dL [facility] SCRIBED Hematocrit 33.1(A) 38.5 - 50.0 % [facility] SCRIBED Platelets 163 140 - 400 k/cumm [facility] Blood 10/01/2024 Suresh Verma MD LAB BLOOD ORDERABLES Fin al Result [facility] * (ABNORMAL) Protime-INR (10/01/2024) SCRIBED PT 14.2(A) 9.0 - 11.5 sec [facility] SCRIBED INR 1.3 0.9 - 4.0 sec [facility] Blood 10/01/2024 Suresh Verma MD LAB BLOOD ORDERABLES Fin al Result [facility] * (ABNORMAL) Comprehensive metabolic panel (10/01/2024) SCRIBED Sodium 138 135 - 146 mmol/L [facility] SCRIBED Potassium 4.3 3.5 - 5.3 mmol/L [facility] SCRIBED Chloride 104 98 - 110 mmol/L [facility] SCRIBED Carbon Dioxide 27 20 - 32 mmol/L [facility] SCRIBED Urea Nitrogen (BUN) 24 7 - 25 mg/dl [facility] SCRIBED Creatinine 1.19 0.70 - 1.26 mg/dl [facility] SCRIBED Glucose 227(A) 65 - 99 mg/dl [facility] SCRIBED Calcium 8.1(A) 8.6 - 10.3 mg/dl [facility] SCRIBED Bilirubin 0.5 0.2 - 1.2 mg/dl [facility] SCRIBED Plasma Protein 5.5(A) 6.1 - 8.1 g/dl [facility] SCRIBED Albumin 3.4(A) 3.6 - 5.1 g/dl [facility] SCRIBED Alkaline Phosphatase 116 35 - 144 Units/L [facility] SCRIBED Alanine Transaminase (ALT) 58(A) 9 - 46 Units/L [facility] SCRIBED Aspartate Transaminase (AST) 48(A) 10 - 35 Units/L [facility] SCRIBED eGFR in NonAfrican Swiss 64 >=60 [facility] Globulin 2.1 1.9 - 3.7 g/dL (calc) [facility] Alb/glob ratio 1.6 1.0 - 2.5 [facility] Blood 10/01/2024 us Suresh Verma MD LAB BLOOD ORDERABLES Fin al Result [facility] * Surgical pathology (09/25/2024 12:00 AM CDT) Tissue (Skin, shave biopsy) 09/25/2024 09/26/2024 4:30 AM CDT Narrative [facility] - 09/27/2024 4:26 PM CDT EPIC results best viewed via link to PDF [facility] [address] [place] [address], [address], [place] [address] [email or web address] Note to Patients: This report may contain a detailed description of human tissue sent by a health care provider to the laboratory for pathologic evaluation. The content of this report is essential for diagnosis and may provide important critical findings. This information may be unfamiliar to patients to review without a medical professional present. It is advised that the patient review this report in the presence of a health care provider who can answer questions and explain the details. FINAL REPORT Patient Information: PATIENT NAME: CINDY SEVERINO III SEX: M : [id number] (Age: 73) Specimen Information: COLLECTED: 09/25/2024 RECEIVED: 09/26/2024 REPORTED: 09/27/2024 Submitting Physician Information: JUAN Agrawal [address] [place] [id number] , [phone] DERMATOPATHOLOGY REPORT RESULTS DIAGNOSIS: A. SKIN, LEFT LATERAL NECK, SHAVE BIOPSY: BASAL CELL CARCINOMA B. SKIN, RIGHT HYPOTHENAR PALM, SHAVE BIOPSY: SQUAMOUS CELL CARCINOMA IN SITU sxt/ajrr By this signature, I attest that the above diagnosis is based upon my personal examination of the slides(and/or other material indicated in the diagnosis). Ector Gardner M.D. Report Electronically Reviewed and Signed Out By Ector Gardner M.D. 09/27/2024 16:26:27 CLINICAL INFORMATION A-B. NMSC SPECIMEN DATA MICROSCOPIC DESCRIPTION: A. Irregular aggregates of atypical basal epithelial cells with palisading of their peripheral nuclei are present within the dermis. (C44.91) B. Atypical keratinocytes are present throughout the entire thickness of the epidermis. (D04.9) GROSS DESCRIPTION: A. Received in a formalin-containing bottle is a superficial fragment of pale mosqueda, finely scaling, and semi-translucent skin measuring 1.0 by 0.7 by 0.1 cm. The surgical margin is inked blue. The specimen bears a brown, crusted, raised area measuring 0.3 by 0.2 by 0.1 cm. The specimen is sectioned into 4 pieces and submitted entirely in a single cassette. Due to shrinkage, measurements may be different than those at the time of procedure. B. Received in a formalin-containing bottle is a superficial fragment of pale mosqueda, crusted, and volar skin measuring 1.3 by 1.3 by 0.4 cm. The surgical margin is inked blue. The specimen is sectioned into 5 pieces and submitted entirely in a single cassette. Due to shrinkage, measurements may be different than those at time of procedure. ag/anc ICD-9 ZSD.1474 ZSD.176 Clerical Data A; 42017 B; 73246 The characteristics of special, immunohistochemical, and immunofluorescence stains and in-situ hybridization tests performed by the [facility] were deemed acceptable in ongoing quality management nurse measures and in compliance with regulations drawn from the Clinical Laboratory Improvement Act [id number] (CLIA '88). Control reactions for all stains performed were deemed adequate and appropriate by a pathologist prior to evaluation of patient tissue. Some diagnoses were rendered with the assistance of laboratory-developed tests utilizing analyte-specific reagents; the performance characteristic of these tests were determined by [facility] and are not cleared or approved by the [place] Food an Drug administration. Laboratory developed test may only be performed in a facility that is certified by the [facility] as a high-complexity laboratory under CLIA '88. These tests are used for clinical purposes and are not investigational. Tin MARTINEZ LAB PATHOLOGY ORDERABL ES Final Result Performing Organization Address [facility] Co de Phone Number [facility] C[facility] [address] [place] [phone] * (ABNORMAL) CBC with auto differential (09/24/2024 1:30 PM CDT) SCRIBED WBC 5.99 4.5 - 11.0 k/cumm EXTERNAL LAB SCRIBED Hemoglobin 10.6(A) 14.0 - 18.0 g/dL EXTERNAL LAB SCRIBED Hematocrit 33.1(A) 43.0 - 54.0 % EXTERNAL LAB SCRIBED Platelets 175 130 - 400 k/cumm EXTERNAL LAB Blood 09/24/2024 1:30 PM CDT Suresh Verma MD LAB BLOOD ORDERABLES Fin al Result Performing Organization Address [facility] Co de Phone Number EXTERNAL LAB * (ABNORMAL) Protime-INR (09/24/2024 1:30 PM CDT) SCRIBED PT 22.7(A) 10.2 - 12.9 sec EXTERNAL LAB SCRIBED INR 2.0 2.0 - 3.0 sec EXTERNAL LAB Blood 09/24/2024 1:30 PM CDT Suresh Verma MD LAB BLOOD ORDERABLES Fin al Result Performing Organization Address [facility] Co de Phone Number EXTERNAL LAB * (ABNORMAL) Comprehensive metabolic panel (09/24/2024 1:30 PM CDT) SCRIBED Sodium 140 136 - 145 mmol/L EXTERNAL LAB SCRIBED Potassium 4.0 3.5 - 5.1 mmol/L EXTERNAL LAB SCRIBED Chloride 108 97 - 115 mmol/L EXTERNAL LAB SCRIBED Carbon Dioxide 26.5 21 - 32 mmol/L EXTERNAL LAB SCRIBED Anion Gap 5.5 2 - 10 mmol/L EXTERNAL LAB SCRIBED Urea Nitrogen (BUN) 20(A) 7 - 18 mg/dl EXTERNAL LAB SCRIBED Creatinine 1.12 0.7 - 1.3 mg/dl EXTERNAL LAB SCRIBED Glucose 130(A) 70 - 99 mg/dl EXTERNAL LAB SCRIBED Calcium 7.5(A) 8.5 - 10.1 mg/dl EXTERNAL LAB SCRIBED Bilirubin 0.5 0.2 - 1.2 mg/dl EXTERNAL LAB SCRIBED Plasma Protein 5.7(A) 6.4 - 8.2 g/dl EXTERNAL LAB SCRIBED Albumin 2.9(A) 3.4 - 5.0 g/dl EXTERNAL LAB SCRIBED Alkaline Phosphatase 127 50 - 136 Units/L EXTERNAL LAB SCRIBED Alanine Transaminase (ALT) 86(A) 16 - 60 Units/L EXTERNAL LAB SCRIBED Aspartate Transaminase (AST) 69(A) 15 - 37 Units/L EXTERNAL LAB SCRIBED eGFR in NonAfrican Swiss 69 >90 EXTERNAL LAB Blood 09/24/2024 1:30 PM CDT us Suresh Verma MD LAB BLOOD ORDERABLES Fin al Result EXTERNAL LAB * (ABNORMAL) Protime-INR (09/24/2024) INR 2.00(A) 0.90 - 1.10 Blood us Crys Provider LAB BLOOD ORDERABLES Maia l Result * XR Knee Left 4 or More Views (09/20/2024 2:05 PM CDT) Anatomical Region Laterality Modality Lower Extremities, Knee Left Computed Radiography 09/20/2024 2:46 PM CDT Impressions 09/20/2024 3:19 PM CDT Severe lateral compartment predominant tricompartmental left knee osteoarthritis. Dictated by: Luis Miguel Campos MD The radiology attending physician has personally reviewed this study, and had reviewed and/or edited this written report and agrees with it. Electronically signed by: Mono Nguyen MD Narrative 09/20/2024 3:19 PM CDT EXAMINATION: XR KNEE LEFT 4 OR MORE VIEWS HISTORY: Left knee pain FINDINGS: 4 radiographs of the left knee are compared to 08/10/2006. There is severe lateral compartment predominant tricompartmental left knee osteoarthritis. A small effusion is present. No acute fracture. Normal alignment. Atherosclerotic vascular calcifications are present. Procedure Note Mono Nguyen MD - 09/20/2024 EXAMINATION: XR KNEE LEFT 4 OR MORE VIEWS HISTORY: Left knee pain FINDINGS: 4 radiographs of the left knee are compared to 08/10/2006. There is severe lateral compartment predominant tricompartmental left knee osteoarthritis. A small effusion is present. No acute fracture. Normal alignment. Atherosclerotic vascular calcifications are present. IMPRESSION: Severe lateral compartment predominant tricompartmental left knee osteoarthritis. Dictated by: Luis Miguel Campos MD The radiology attending physician has personally reviewed this study, and had reviewed and/or edited this written report and agrees with it. Electronically signed by: Mono Nguyen MD Tammy MARTINEZ IMG XR PROCEDURES Maia l Result * (ABNORMAL) Protime-INR (09/18/2024) Pathologist [facility] INR 1.90(A) 0.90 - 1.10 Blood Historical Provider LAB BLOOD ORDERABLES Maia l Result * (ABNORMAL) CBC with auto differential (09/17/2024) SCRIBED WBC 6.0 3.8 - 10.8 k/cumm [facility] SCRIBED Hemoglobin 10.7(A) 13.2 - 17.1 g/dL [facility] SCRIBED Hematocrit 33.8 28.5 - 50 % [facility] SCRIBED Platelets 200 140 - 400 k/cumm [facility] Blood 09/17/2024 Suresh Verma MD LAB BLOOD ORDERABLES Fin al Result Performing Organization Address [facility] de Phone Number [facility] * (ABNORMAL) Protime-INR (09/17/2024) SCRIBED PT 19.5(A) 9.0 - 11.5 sec [facility] SCRIBED INR 1.9(A) 2.0 - 3.0 sec [facility] Blood 09/17/2024 Suresh Verma MD LAB BLOOD ORDERABLES Fin al Result Performing Organization Address [facility] de Phone Number [facility] * (ABNORMAL) Comprehensive metabolic panel (09/17/2024) SCRIBED Sodium 137 135 - 146 mmol/L [facility] SCRIBED Chloride 105 98 - 110 mmol/L [facility] SCRIBED Carbon Dioxide 27 20 - 32 mmol/L [facility] SCRIBED Urea Nitrogen (BUN) 21 7 - 25 mg/dl [facility] SCRIBED Creatinine 1.30(A) 0.70 - 1.28 mg/dl [facility] SCRIBED Glucose 169(A) 65 - 99 mg/dl [facility] SCRIBED Calcium 8.0(A) 8.6 - 10.3 mg/dl [facility] SCRIBED Bilirubin 0.5 0.2 - 1.2 mg/dl [facility] SCRIBED Plasma Protein 5.8(A) 6.1 - 8.1 g/dl [facility] SCRIBED Albumin 3.4(A) 3.6 - 5.1 g/dl [facility] SCRIBED Alkaline Phosphatase 110 35 - 144 Units/L [facility] SCRIBED Alanine Transaminase (ALT) 96(A) 9 - 46 Units/L [facility] SCRIBED Aspartate Transaminase (AST) 138(A) 10 - 35 Units/L [facility] SCRIBED eGFR in NonAfrican Swiss 57 >60 [facility] Urea nitrogen ur creatine ur ratio 16 6 - 22 [facility] A/G Ratio 1.4 1.0 - 2.5 [facility] Blood 09/17/2024 Result [facility] Suresh Verma MD LAB BLOOD ORDERABLES Fin al Result [facility] * (ABNORMAL) Protime-INR (09/11/2024) INR 1.90(A) 0.90 - 1.10 Blood Crys Avila MD LAB BLOOD ORDERABLES Maia l Result * (ABNORMAL) CBC with auto differential (09/10/2024) Pathologist [facility] SCRIBED WBC 7.2 3.8 - 10.8 k/cumm SCRIBED Hemoglobin 10.7(A) 13.2 - 17.1 g/dL SCRIBED Hematocrit 33.1(A) 38.5 - 50.0 % SCRIBED Platelets 187 140 - 400 k/cumm Blood 09/10/2024 Result [facility] Suresh Verma MD LAB BLOOD ORDERABLES Fin al Result * (ABNORMAL) Protime-INR (09/10/2024) Pathologist [facility] SCRIBED PT 19.5(A) 9.0 - 11.5 sec SCRIBED INR 1.9(A) 0.9 - 1.1 sec Blood 09/10/2024 Result [facility] Suresh Verma MD LAB BLOOD ORDERABLES Fin al Result * (ABNORMAL) Comprehensive metabolic panel (09/10/2024) SCRIBED Sodium 138 135 - 146 mmol/L SCRIBED Potassium 4.3 3.5 - 5.3 mmol/L SCRIBED Chloride 103 98 - 110 mmol/L SCRIBED Carbon Dioxide 27 20 - 32 mmol/L SCRIBED Urea Nitrogen (BUN) 23 7 - 25 mg/dl SCRIBED Creatinine 1.35(A) 0.70 - 1.26 mg/dl SCRIBED Glucose 109(A) 65 - 99 mg/dl SCRIBED Calcium 8.1(A) 8.6 - 10.3 mg/dl SCRIBED Bilirubin 0.5 0.2 - 1.2 mg/dl SCRIBED Plasma Protein 5.6(A) 6.1 - 8.1 g/dl SCRIBED Albumin 3.3(A) 3.6 - 8.1 g/dl SCRIBED Alkaline Phosphatase 103 35 - 144 Units/L SCRIBED Alanine Transaminase (ALT) 62(A) 9 - 46 Units/L SCRIBED Aspartate Transaminase (AST) 65(A) 10 - 35 Units/L SCRIBED eGFR in NonAfrican Swiss 55 >60 BUN_Creat Ratio 17 6 - 22 Alb/glob ratio 1.4 1.0 - 2.5 Blood 09/10/2024 Result [facility] Suresh Verma MD LAB BLOOD ORDERABLES Fin al Result * (ABNORMAL) Protime-INR (09/07/2024) INR 1.50(A) 0.90 - 1.10 Blood Result [facility] Provider LAB BLOOD ORDERABLES Maia l Result * (ABNORMAL) CBC with auto differential (09/06/2024) SCRIBED WBC 10.1 3.8 - 10.8 k/cumm [facility] SCRIBED Hemoglobin 11.4(A) 13.2 - 17.1 g/dL [facility] SCRIBED Hematocrit 36.4(A) 38.5 - 50.0 % [facility] SCRIBED Platelets 206 140 - 400 k/cumm [facility] Blood 09/06/2024 Result [facility] Suresh Verma MD LAB BLOOD ORDERABLES Fin al Result [facility] * (ABNORMAL) Protime-INR (09/06/2024) SCRIBED PT 15.8(A) 9.0 - 11.5 sec [facility] SCRIBED INR 1.5(A) 0.9 - 1.1 sec [facility] Blood 09/06/2024 us Suresh Verma MD LAB BLOOD ORDERABLES Fin al Result [facility] * (ABNORMAL) Comprehensive metabolic panel (09/06/2024) SCRIBED Sodium 142 135 - 146 mmol/L [facility] SCRIBED Potassium 4.3 3.5 - 5.3 mmol/L [facility] SCRIBED Chloride 105 98 - 110 mmol/L [facility] SCRIBED Carbon Dioxide 24 20 - 32 mmol/L [facility] SCRIBED Urea Nitrogen (BUN) 28(A) 7 - 25 mg/dl [facility] SCRIBED Creatinine 1.48(A) 0.70 - 1.28 mg/dl [facility] SCRIBED Glucose 70 65 - 99 mg/dl [facility] SCRIBED Calcium 8.6 8.6 - 10.3 mg/dl [facility] SCRIBED Bilirubin 0.5 0.2 - 1.2 mg/dl [facility] SCRIB[facility] Plasma Protein 5.8(A) 6.1 - 8.1 g/dl [facility] SCRIBED Albumin 3.4(A) 3.6 - 5.1 g/dl [facility] SCRIBED Alkaline Phosphatase 104 35 - 144 Units/L [facility] SCRIBED Alanine Transaminase (ALT) 49(A) 9 - 46 Units/L [facility] SCRIBED Aspartate Transaminase (AST) 55(A) 10 - 35 Units/L [facility] SCRIBED eGFR in NonAfrican Swiss 49 >60 [facility] BUN_Creat Ratio 19 6 - 22 [facility] Globulin 2.4 1.9 - 3.7 g/dL (calc) [facility] Alb/glob ratio 1.4 1.0 - 2.5 [facility] Blood 09/06/2024 us Suresh Verma MD LAB BLOOD ORDERABLES Ayo leyla Result - Final [facility] * (ABNORMAL) POCT glucose (08/31/2024 11:29 AM CDT) Glucose, POC 213(H) 70 - 199 mg/dL Blood 08/31/2024 11:2 9 AM CDT 08/31/2024 11:29 AM CDT us Suresh Wyman MD PhD LAB POCT ORDERABLE S - DEVICE Final Result Performing Organization Address [facility] Co de Phone Number [facility] Department [place] [employer] [place] [address] * POCT glucose (08/31/2024 7:52 AM CDT) Glucose, POC 194 70 - 199 mg/dL Blood 08/31/2024 7:52 AM CDT 08/31/2024 7:52 AM CDT us Suresh Wyman MD PhD LAB POCT ORDERABLE S - DEVICE Final Result Performing Organization Address [facility] Co de Phone Number [facility] [place] [place] [address] * Lactate (08/31/2024 4:24 AM CDT) [facility] Lactate 1.8 0.7 - 2.0 mmol/L Blood 08/31/2024 4:24 AM CDT 08/31/2024 5:27 AM CDT us Suresh Wyman MD PhD LAB BLOOD ORDERABL ES Final Result Performing Organization Address [facility] Co de Phone Number [facility] [place] [place] [address] * eGFR (08/31/2024 4:24 AM CDT) eGFR 62 >=60 mL/min/1. 73 m2 Comment: Interpretive Data Reference Interval Normal >/= 90 mL/min/1.73m2 Mildly decreased* 60 - 89 mL/min/1.73m2 Mildly to moderately decreased 45 - 59 mL/min/1.73m2 Moderately to severely decreased 30 - 44 mL/min/1.73m2 Severely decreased 15 - 29 mL/min/1.73m2 Kidney Failure < 15 mL/min/1.73m2 *Relative to young adult level Estimated glomerular filtration rate is determined by the 2020 CKD-EPI equation recommended by the National Kidney Foundation (A Unifying Approach to GFR Estimation: Recommendations of the NKF-ASK Task Force on Reassessing the Inclusion of Race in Diagnosing Kidney Disease, JASN 2020). The CKD-EPI equation should not be used for patients with unstable renal function and has not been validated in children and those over 70. Current interpretive data was last reviewed 2021. Blood 08/31/2024 4:24 AM CDT 08/31/2024 5:28 AM CDT us Suresh Wyman MD PhD LAB BLOOD ORDERABL ES Final Result [facility] [place] [address] * (ABNORMAL) Differential, auto (08/31/2024 4:24 AM CDT) Neutrophil abs 4.81 1.50 - 6.50 K/cumm Imm gran abs 0.31(H) 0.00 - 0.10 K/cumm [facility] Lymphocyte abs 0.82 0.80 - 3.30 K/cumm [facility] Monocyte abs 1.04(H) 0.20 - 0.80 K/cumm [facility] Eosinophil abs 0.67(H) 0.00 - 0.50 K/cumm [facility] Basophil abs 0.11(H) 0.00 - 0.10 K/cumm [facility] Neutrophil pct 62.0 % [facility] Comment: Interpretive Data Percent cell count reference ranges are not reported, since discordance with absolute values may lead to misinterpretation of CBC data. Current Interpretive Data was last revised on 2017. Imm gran pct 4.0 % [facility] Comment: Interpretive Data Percent cell count reference ranges are not reported, since discordance with absolute values may lead to misinterpretation of CBC data. Current Interpretive Data was last revised on 2017. Lymphocyte pct 10.6 % [facility] Comment: Interpretive Data Percent cell count reference ranges are not reported, since discordance with absolute values may lead to misinterpretation of CBC data. Current Interpretive Data was last revised on 2017. Monocyte pct 13.4 % [facility] Comment: Interpretive Data Percent cell count reference ranges are not reported, since discordance with absolute values may lead to misinterpretation of CBC data. Current Interpretive Data was last revised on 2017. Eosinophil pct 8.6 % [facility] Comment: Interpretive Data Percent cell count reference ranges are not reported, since discordance with absolute values may lead to misinterpretation of CBC data. Current Interpretive Data was last revised on 2017. Basophil pct 1.4 % [facility] Comment: Interpretive Data Percent cell count reference ranges are not reported, since discordance with absolute values may lead to misinterpretation of CBC data. Current Interpretive Data was last revised on 2017. Blood 08/31/2024 4:24 AM CDT 08/31/2024 5:28 AM CDT us Suresh Wyman MD PhD LAB BLOOD ORDERABL ES Final Result [facility] [place] [address] * (ABNORMAL) CBC with auto differential (08/31/2024 4:24 AM CDT) WBC 7.76 3.80 - 9.90 K/cumm Hgb 10.4(L) 13.0 - 17.5 g/dL [facility] Hct 30.7(L) 38.9 - 50.3 % [facility] Plt 223 150 - 400 K/cumm [facility] MPV 10.3 9.1 - 12.3 fL [facility] RBC 3.42(L) 4.30 - 5.80 M/cumm [facility] MCV 89.8 81.3 - 96.4 fL [facility] MCH 30.4 27.1 - 33.3 pg [facility] MCHC 33.9 32.3 - 35.7 g/dL [facility] RDW CV 14.6 11.1 - 14.9 % [facility] RDW SD 47.0 35.7 - 48.1 fL [facility] NRBC abs 0.00 0.00 - 0.01 K/cumm [facility] Blood 08/31/2024 4:24 AM CDT 08/31/2024 5:28 AM CDT us Suresh Wyman MD PhD LAB BLOOD ORDERABL ES Final Result Performing Organization Address [facility] de Phone Number [facility] [place] [place] [address] * (ABNORMAL) Protime-INR (08/31/2024 4:24 AM CDT) PT 20.1(H) 9.7 - 13.0 sec INR 1.84(H) 0.90 - 1.20 [facility] Comment: Interpretive data Oral anticoagulant therapeutic ranges: Venous thromboembolism prophylaxis or treatment: 2.0-3.0 CARDIOLOGY Standard range: 2.0-3.0 High-intensity range: 2.5-3.5 Refer to indication-specific guidelines for appropriate target ranges for prosthetic heart valve replacement. Current interpretive data was last revised on 2019. Blood 08/31/2024 4:24 AM CDT 08/31/2024 5:30 AM CDT us Suresh Wyman MD PhD LAB BLOOD ORDERABL ES Final Result Performing Organization Address [facility] de Phone Number [facility] [place] [employer] [place] [address] * Magnesium (08/31/2024 4:24 AM CDT) Magnesium 1.7 1.4 - 2.5 mg/dL Blood 08/31/2024 4:24 AM CDT 08/31/2024 5:28 AM CDT us Suresh Wyman MD PhD LAB BLOOD ORDERABL ES Final Result Performing Organization Address City/[facility]/ZIP Co de Phone Number [facility] Department [place] [address] * Basic metabolic panel (08/31/2024 4:24 AM CDT) Pathologist [facility] Sodium 139 135 - 145 mmol/L Potassium, pl 4.1 3.3 - 4.9 mmol/L [facility] Chloride 101 97 - 110 mmol/L [facility] CO2 29 22 - 32 mmol/L [facility] Anion gap 9 2 - 15 mmol/L [facility] BUN 7 6 - 25 mg/dL [facility] Creatinine 1.21 0.80 - 1.30 mg/dL [facility] Glucose 190 70 - 199 mg/dL [facility] Comment: Interpretive Data Fasting glucose >/= 126 mg/dl is diagnostic for diabetes. Fasting is defined as no caloric intake for at least 8 hours. Fasting glucose between 100 mg/dl to 125 mg/dl is diagnostic of prediabetes. In a patient with classic symptoms of hyperglycemia or hyperglycemic crisis, a random glucose >/= 200 mg/dl is diagnostic for diabetes. In the absence of unequivocal hyperglycemia, results should be confirmed by repeat testing. The classification and Diagnosis of Diabetes Diabetes Care 2021; 46: S19-S40. Current interpretive data was last revised 2022. Calcium 8.6 8.5 - 10.3 mg/dL [facility] Blood 08/31/2024 4:24 AM CDT 08/31/2024 5:28 AM CDT us Suresh Wyman MD PhD LAB BLOOD ORDERABL ES Final Result Performing Organization Address [facility]/ZIP Co de Phone Number [facility] Department [place] [address] * (ABNORMAL) POCT glucose (08/30/2024 8:42 PM CDT) Glucose, POC 240(H) 70 - 199 mg/dL Blood 08/30/2024 8:42 PM CDT 08/30/2024 8:42 PM CDT us Suresh Wyman MD PhD LAB POCT ORDERABLE S - DEVICE Final Result Performing Organization Address City/[facility] [place] [address] * POCT glucose (08/30/2024 4:51 PM CDT) Glucose, POC 152 70 - 199 mg/dL Blood 08/30/2024 4:51 PM CDT 08/30/2024 4:51 PM CDT us Suresh Wyman MD PhD LAB POCT ORDERABLE S - DEVICE Final Result Performing Organization Address City/[facility] [place] [address] * POCT glucose (08/30/2024 11:14 AM CDT) Glucose, POC 173 70 - 199 mg/dL Blood 08/30/2024 11:1 4 AM CDT 08/30/2024 11:14 AM CDT us Suresh Wyman MD PhD LAB POCT ORDERABLE S - DEVICE Final Result Performing Organization Address City/[facility] [place] [address] * (ABNORMAL) POCT glucose (08/30/2024 7:32 AM CDT) [facility] Signature Glucose, POC 219(H) 70 - 199 mg/dL Blood 08/30/2024 7:32 AM CDT 08/30/2024 7:32 AM CDT us Suresh Wyman MD PhD LAB POCT ORDERABLE S - DEVICE Final Result Performing Organization Address City/[facility]/ZIP Co de Phone Number [facility] Department [place] [address] * Lactate (08/30/2024 5:20 AM CDT) Pathologist [facility] Lactate 2.0 0.7 - 2.0 mmol/L Blood 08/30/2024 5:20 AM CDT 08/30/2024 5:53 AM CDT us Suresh Wyman MD PhD LAB BLOOD ORDERABL ES Final Result Performing Organization Address [facility] Co de Phone Number [facility] Department [place] [address] * eGFR (08/30/2024 5:20 AM CDT) [facility] eGFR 61 >=60 mL/min/1. 73 m2 Comment: Interpretive Data Reference Interval Normal >/= 90 mL/min/1.73m2 Mildly decreased* 60 - 89 mL/min/1.73m2 Mildly to moderately decreased 45 - 59 mL/min/1.73m2 Moderately to severely decreased 30 - 44 mL/min/1.73m2 Severely decreased 15 - 29 mL/min/1.73m2 Kidney Failure < 15 mL/min/1.73m2 *Relative to young adult level Estimated glomerular filtration rate is determined by the 2020 CKD-EPI equation recommended by the National Kidney Foundation (A Unifying Approach to GFR Estimation: Recommendations of the NKF-ASK Task Force on Reassessing the Inclusion of Race in Diagnosing Kidney Disease, JASN 202). The CKD-EPI equation should not be used for patients with unstable renal function and has not been validated in children and those over 70. Current interpretive data was last reviewed 2021. Blood 08/30/2024 5:20 AM CDT 08/30/2024 5:56 AM CDT us Suresh Wyman MD PhD LAB BLOOD ORDERABL ES Final Result [facility] [place] [address] * (ABNORMAL) Differential, auto (08/30/2024 5:20 AM CDT) Neutrophil abs 3.64 1.50 - 6.50 K/cumm Imm gran abs 0.18(H) 0.00 - 0.10 K/cumm [facility] Lymphocyte abs 0.86 0.80 - 3.30 K/cumm [facility] Monocyte abs 0.91(H) 0.20 - 0.80 K/cumm [facility] Eosinophil abs 0.62(H) 0.00 - 0.50 K/cumm [facility] Basophil abs 0.11(H) 0.00 - 0.10 K/cumm [facility] Neutrophil pct 57.7 % [facility] Comment: Interpretive Data Percent cell count reference ranges are not reported, since discordance with absolute values may lead to misinterpretation of CBC data. Current Interpretive Data was last revised on 2017. Imm gran pct 2.8 % [facility] Comment: Interpretive Data Percent cell count reference ranges are not reported, since discordance with absolute values may lead to misinterpretation of CBC data. Current Interpretive Data was last revised on 2017. Lymphocyte pct 13.6 % [facility] Comment: Interpretive Data Percent cell count reference ranges are not reported, since discordance with absolute values may lead to misinterpretation of CBC data. Current Interpretive Data was last revised on 2017. Monocyte pct 14.4 % [facility] Comment: Interpretive Data Percent cell count reference ranges are not reported, since discordance with absolute values may lead to misinterpretation of CBC data. Current Interpretive Data was last revised on 2017. Eosinophil pct 9.8 % [facility] Comment: Interpretive Data Percent cell count reference ranges are not reported, since discordance with absolute values may lead to misinterpretation of CBC data. Current Interpretive Data was last revised on 2017. Basophil pct 1.7 % [facility] Comment: Interpretive Data Percent cell count reference ranges are not reported, since discordance with absolute values may lead to misinterpretation of CBC data. Current Interpretive Data was last revised on 2017. Blood 08/30/2024 5:20 AM CDT 08/30/2024 5:55 AM CDT us Suresh Wyman MD PhD LAB BLOOD ORDERABL ES Final Result [facility] Department [place] [address] * (ABNORMAL) CBC with auto differential (08/30/2024 5:20 AM CDT) WBC 6.32 3.80 - 9.90 K/cumm Hgb 9.9(L) 13.0 - 17.5 g/dL [facility] Hct 30.2(L) 38.9 - 50.3 % [facility] Plt 199 150 - 400 K/cumm [facility] MPV 10.1 9.1 - 12.3 fL [facility] RBC 3.32(L) 4.30 - 5.80 M/cumm [facility] MCV 91.0 81.3 - 96.4 fL [facility] MCH 29.8 27.1 - 33.3 pg [facility] MCHC 32.8 32.3 - 35.7 g/dL [facility] RDW CV 14.3 11.1 - 14.9 % [facility] RDW SD 47.2 35.7 - 48.1 fL [facility] NRBC abs 0.00 0.00 - 0.01 K/cumm [facility] Blood 08/30/2024 5:20 AM CDT 08/30/2024 5:55 AM CDT us Suresh Wyman MD PhD LAB BLOOD ORDERABL ES Final Result Performing Organization Address City/[facility]/ZIP Co de Phone Number [facility] [place] [address] * (ABNORMAL) Protime-INR (08/30/2024 5:20 AM CDT) PT 21.4(H) 9.7 - 13.0 sec INR 1.95(H) 0.90 - 1.20 [facility] Comment: Interpretive data Oral anticoagulant therapeutic ranges: Venous thromboembolism prophylaxis or treatment: 2.0-3.0 CARDIOLOGY Standard range: 2.0-3.0 High-intensity range: 2.5-3.5 Refer to indication-specific guidelines for appropriate target ranges for prosthetic heart valve replacement. Current interpretive data was last revised on 2019. Blood 08/30/2024 5:20 AM CDT 08/30/2024 5:58 AM CDT Narrative [facility] - 08/30/2024 6:19 AM CDT While on warfarin us Maria Luisa Escamilla WEAVING INSTRUCTOR LAB BLOOD ORDERABLES Final Result Performing Organization Address [facility] [place] [address] * Magnesium (08/30/2024 5:20 AM CDT) Pathologist [facility] Magnesium 1.7 1.4 - 2.5 mg/dL Blood 08/30/2024 5:20 AM CDT 08/30/2024 5:56 AM CDT us Suresh Wyman MD PhD LAB BLOOD ORDERABL ES Final Result Performing Organization Address City/[facility] Co de Phone Number [facility] [place] [place] [address] * (ABNORMAL) Basic metabolic panel (08/30/2024 5:20 AM CDT) Sodium 139 135 - 145 mmol/L Potassium, pl 3.8 3.3 - 4.9 mmol/L [facility] Chloride 105 97 - 110 mmol/L [facility] CO2 29 22 - 32 mmol/L [facility] Anion gap 5 2 - 15 mmol/L [facility] BUN 5(L) 6 - 25 mg/dL [facility] Creatinine 1.24 0.80 - 1.30 mg/dL [facility] Glucose 201(H) 70 - 199 mg/dL [facility] Comment: Interpretive Data Fasting glucose >/= 126 mg/dl is diagnostic for diabetes. Fasting is defined as no caloric intake for at least 8 hours. Fasting glucose between 100 mg/dl to 125 mg/dl is diagnostic of prediabetes. In a patient with classic symptoms of hyperglycemia or hyperglycemic crisis, a random glucose >/= 200 mg/dl is diagnostic for diabetes. In the absence of unequivocal hyperglycemia, results should be confirmed by repeat testing. The classification and Diagnosis of Diabetes Diabetes Care 202; 46: S19-S40. Current interpretive data was last revised 2022. Calcium 8.0(L) 8.5 - 10.3 mg/dL [facility] Blood 08/30/2024 5:20 AM CDT 08/30/2024 5:56 AM CDT us Suresh Wyman MD PhD LAB BLOOD ORDERABL ES Final Result [facility] [place] [address] * (ABNORMAL) Protime-INR (08/30/2024 1:10 AM CDT) PT 19.2(H) 9.7 - 13.0 sec INR 1.76(H) 0.90 - 1.20 [facility] Comment: Interpretive data Oral anticoagulant therapeutic ranges: Venous thromboembolism prophylaxis or treatment: 2.0-3.0 CARDIOLOGY Standard range: 2.0-3.0 High-intensity range: 2.5-3.5 Refer to indication-specific guidelines for appropriate target ranges for prosthetic heart valve replacement. Current interpretive data was last revised on 2019. Blood 08/30/2024 1:10 AM CDT 08/30/2024 1:56 AM CDT us Suresh Wyman MD PhD LAB BLOOD ORDERABL ES Final Result Performing Organization Address [facility] Co de Phone Number [facility] [place] [place] [address] * POCT glucose (08/29/2024 8:22 PM CDT) Glucose, POC 185 70 - 199 mg/dL Blood 08/29/2024 8:22 PM CDT 08/29/2024 8:22 PM CDT us Suresh Wyman MD PhD LAB POCT ORDERABLE S - DEVICE Final Result Performing Organization Address [facility] de Phone Number [facility] [place] [place] [address] * POCT glucose (08/29/2024 4:41 PM CDT) Glucose, POC 159 70 - 199 mg/dL Blood 08/29/2024 4:41 PM CDT 08/29/2024 4:41 PM CDT us Suresh Wyman MD PhD LAB POCT ORDERABLE S - DEVICE Final Result Performing Organization Address [facility] de Phone Number [facility] [place] [place] [address] * POCT glucose (08/29/2024 11:43 AM CDT) Glucose, POC 114 70 - 199 mg/dL Blood 08/29/2024 11:4 3 AM CDT 08/29/2024 11:43 AM CDT us Suresh Wyman MD PhD LAB POCT ORDERABLE S - DEVICE Final Result Performing Organization Address [facility]/ZIP Co de Phone Number [facility] [place] [address] * (ABNORMAL) aPTT (08/29/2024 9:58 AM CDT) aPTT 81(H) 28 - 38 sec Comment: Interpretive Data Heparin therapeutic range: 66.0 - 100.0 seconds. Range based on correlation with therapeutic heparin activity range of 0.3 - 0.7 Units/mL. Current interpretive data was last revised on 2023. Blood 08/29/2024 9:58 AM CDT 08/29/2024 10:47 AM CDT Narrative [facility] - 08/29/2024 11:10 AM CDT STAT PTT timing: - Draw 6 hours after heparin infusion initiation - Draw 6 hours after every dose change until 2 consecutive PTTs are therapeutic - Once 2 consecutive PTTs are therapeutic, obtain with daily labs until infusion is discontinued - - Restart every 6 hour lab draws and follow instructions accordingly if PTT is outside of therapeutic range Do not draw lab from IV line that is actively infusing heparin. Use the opposite arm. If arm with actively infusing heparin must be used, pause the infusion for at least 2 minutes, and draw specimen below the IV site. For patients with a central venous catheter (CVC), lab must be drawn peripherally (not from CVC). us Maria Luisa Escamilla WEAVING INSTRUCTOR LAB BLOOD ORDERABLES Final Result Performing Organization Address City/[facility]/ZIP Co de Phone Number [facility] [place] [address] * POCT glucose (08/29/2024 7:37 AM CDT) Glucose, POC 112 70 - 199 mg/dL Blood 08/29/2024 7:37 AM CDT 08/29/2024 7:37 AM CDT us Suresh Wyman MD PhD LAB POCT ORDERABLE S - DEVICE Final Result Performing Organization Address City/[facility]/ZIP Co de Phone Number [facility] [place] [place] [address] * Lactate (08/29/2024 4:06 AM CDT) Lactate 1.7 0.7 - 2.0 mmol/L Blood 08/29/2024 4:06 AM CDT 08/29/2024 5:52 AM CDT us Belen Maldonado WEAVING INSTRUCTOR LAB BLOOD ORDERABLES Final Result Performing Organization Address [facility] Co de Phone Number [facility] [place] [address] * eGFR (08/29/2024 4:06 AM CDT) eGFR 67 >=60 mL/min/1. 73 m2 Comment: Interpretive Data Reference Interval Normal >/= 90 mL/min/1.73m2 Mildly decreased* 60 - 89 mL/min/1.73m2 Mildly to moderately decreased 45 - 59 mL/min/1.73m2 Moderately to severely decreased 30 - 44 mL/min/1.73m2 Severely decreased 15 - 29 mL/min/1.73m2 Kidney Failure < 15 mL/min/1.73m2 *Relative to young adult level Estimated glomerular filtration rate is determined by the 2020 CKD-EPI equation recommended by the National Kidney Foundation (A Unifying Approach to GFR Estimation: Recommendations of the NKF-ASK Task Force on Reassessing the Inclusion of Race in Diagnosing Kidney Disease, JASN 2020). The CKD-EPI equation should not be used for patients with unstable renal function and has not been validated in children and those over 70. Current interpretive data was last reviewed 2021. Blood 08/29/2024 4:06 AM CDT 08/29/2024 5:23 AM CDT us Nany Lorenz MD LAB BLOOD ORDERABLES F inal Result [facility] [place] [address] * (ABNORMAL) Differential, auto (08/29/2024 4:06 AM CDT) Neutrophil abs 3.96 1.50 - 6.50 K/cumm Imm gran abs 0.18(H) 0.00 - 0.10 K/cumm [facility] Lymphocyte abs 0.91 0.80 - 3.30 K/cumm [facility] Monocyte abs 0.96(H) 0.20 - 0.80 K/cumm [facility] Eosinophil abs 0.87(H) 0.00 - 0.50 K/cumm [facility] Basophil abs 0.13(H) 0.00 - 0.10 K/cumm [facility] Neutrophil pct 56.4 % [facility] Comment: Interpretive Data Percent cell count reference ranges are not reported, since discordance with absolute values may lead to misinterpretation of CBC data. Current Interpretive Data was last revised on 2017. Imm gran pct 2.6 % [facility] Comment: Interpretive Data Percent cell count reference ranges are not reported, since discordance with absolute values may lead to misinterpretation of CBC data. Current Interpretive Data was last revised on 2017. Lymphocyte pct 13.0 % [facility] Comment: Interpretive Data Percent cell count reference ranges are not reported, since discordance with absolute values may lead to misinterpretation of CBC data. Current Interpretive Data was last revised on 2017. Monocyte pct 13.7 % [facility] Comment: Interpretive Data Percent cell count reference ranges are not reported, since discordance with absolute values may lead to misinterpretation of CBC data. Current Interpretive Data was last revised on 2017. Eosinophil pct 12.4 % [facility] Comment: Interpretive Data Percent cell count reference ranges are not reported, since discordance with absolute values may lead to misinterpretation of CBC data. Current Interpretive Data was last revised on 2017. Basophil pct 1.9 % [facility] Comment: Interpretive Data Percent cell count reference ranges are not reported, since discordance with absolute values may lead to misinterpretation of CBC data. Current Interpretive Data was last revised on 2017. Blood 08/29/2024 4:06 AM CDT 08/29/2024 5:27 AM CDT Nany Lorenz MD LAB BLOOD ORDERABLES F inal Result [facility] [place] [address] * (ABNORMAL) CBC with auto differential (08/29/2024 4:06 AM CDT) Pathologist [facility] WBC 7.01 3.80 - 9.90 K/cumm Hgb 11.0(L) 13.0 - 17.5 g/dL [facility] Hct 33.4(L) 38.9 - 50.3 % [facility] Plt 278 150 - 400 K/cumm [facility] MPV 10.6 9.1 - 12.3 fL [facility] RBC 3.67(L) 4.30 - 5.80 M/cumm [facility] MCV 91.0 81.3 - 96.4 fL [facility] MCH 30.0 27.1 - 33.3 pg [facility] MCHC 32.9 32.3 - 35.7 g/dL [facility] RDW CV 14.1 11.1 - 14.9 % [facility] RDW SD 46.9 35.7 - 48.1 fL [facility] NRBC abs 0.00 0.00 - 0.01 K/cumm [facility] Blood 08/29/2024 4:06 AM CDT 08/29/2024 5:27 AM CDT Nany Lorenz MD LAB BLOOD ORDERABLES F inal Result Performing Organization Address City/[facility]/ZIP Co de Phone Number [facility] Department [place] [address] * (ABNORMAL) Protime-INR (08/29/2024 4:06 AM CDT) [facility] PT 16.1(H) 9.7 - 13.0 sec INR 1.48(H) 0.90 - 1.20 [facility] Comment: Interpretive data Oral anticoagulant therapeutic ranges: Venous thromboembolism prophylaxis or treatment: 2.0-3.0 CARDIOLOGY Standard range: 2.0-3.0 High-intensity range: 2.5-3.5 Refer to indication-specific guidelines for appropriate target ranges for prosthetic heart valve replacement. Current interpretive data was last revised on 2019. Blood 08/29/2024 4:06 AM CDT 08/29/2024 5:29 AM CDT Nany Lorenz MD LAB BLOOD ORDERABLES F inal Result Performing Organization Address City/[facility]/ZIP Co de Phone Number [facility] Department [place] [address] * Magnesium (08/29/2024 4:06 AM CDT) [facility] Magnesium 2.0 1.4 - 2.5 mg/dL Blood 08/29/2024 4:06 AM CDT 08/29/2024 5:23 AM CDT Nany Lorenz MD LAB BLOOD ORDERABLES [place] [address] * (ABNORMAL) Basic metabolic panel (08/29/2024 4:06 AM CDT) [facility] Sodium 141 135 - 145 mmol/L Potassium, pl 4.0 3.3 - 4.9 mmol/L [facility] Chloride 105 97 - 110 mmol/L [facility] CO2 29 22 - 32 mmol/L [facility] Anion gap 7 2 - 15 mmol/L [facility] BUN 5(L) 6 - 25 mg/dL [facility] Creatinine 1.14 0.80 - 1.30 mg/dL [facility] Glucose 104 70 - 199 mg/dL [facility] Comment: Interpretive Data Fasting glucose >/= 126 mg/dl is diagnostic for diabetes. Fasting is defined as no caloric intake for at least 8 hours. Fasting glucose between 100 mg/dl to 125 mg/dl is diagnostic of prediabetes. In a patient with classic symptoms of hyperglycemia or hyperglycemic crisis, a random glucose >/= 200 mg/dl is diagnostic for diabetes. In the absence of unequivocal hyperglycemia, results should be confirmed by repeat testing. The classification and Diagnosis of Diabetes Diabetes Care 2021; 46: S19-S40. Current interpretive data was last revised 2022. Calcium 8.5 8.5 - 10.3 mg/dL [facility] Blood 08/29/2024 4:06 AM CDT 08/29/2024 5:23 AM CDT us Nany Lorenz MD LAB BLOOD ORDERABLES F inal Result [facility] Department [place] [address] * Critical Result Callback Hematology (08/28/2024 10:08 PM CDT) Date Notified [id number] Time Notified [id number] [facility] TestName aPTT [facility] Called/Read Back Lady Young [facility] Credentials RN [facility] Called By NAIF [facility] Blood 08/28/2024 10:0 8 PM CDT 08/28/2024 10:54 PM CDT us Maria Luisa Escamilla NP LAB BLOOD ORDERABLES Final Result [facility] [place] [address] * (ABNORMAL) aPTT (08/28/2024 10:08 PM CDT) aPTT >150(C) 28 - 38 sec Comment: No clot detected in sample Repeated and verified - [id number] - 08/29/24, 12:54 AM Interpretive Data Heparin therapeutic range: 66.0 - 100.0 seconds. Range based on correlation with therapeutic heparin activity range of 0.3 - 0.7 Units/mL. Current interpretive data was last revised on 2023. Blood 08/28/2024 10:0 8 PM CDT 08/28/2024 10:54 PM CDT Narrative [facility] - 08/29/2024 1:01 AM CDT STAT PTT timing: - Draw 6 hours after heparin infusion initiation - Draw 6 hours after every dose change until 2 consecutive PTTs are therapeutic - Once 2 consecutive PTTs are therapeutic, obtain with daily labs until infusion is discontinued - - Restart every 6 hour lab draws and follow instructions accordingly if PTT is outside of therapeutic range Do not draw lab from IV line that is actively infusing heparin. Use the opposite arm. If arm with actively infusing heparin must be used, pause the infusion for at least 2 minutes, and draw specimen below the IV site. For patients with a central venous catheter (CVC), lab must be drawn peripherally (not from CVC). us Maria Luisa Escamilla WEAVING INSTRUCTOR LAB BLOOD ORDERABLES Final Result Performing Organization Address City/[facility]/ZIP Co de Phone Number [facility] [place] [address] * POCT glucose (08/28/2024 7:58 PM CDT) Glucose, POC 154 70 - 199 mg/dL Blood 08/28/2024 7:58 PM CDT 08/28/2024 7:58 PM CDT us Suresh Wyman MD PhD LAB POCT ORDERABLE S - DEVICE Final Result [facility] [place] [address] * POCT glucose (08/28/2024 4:56 PM CDT) Glucose, POC 132 70 - 199 mg/dL Blood 08/28/2024 4:56 PM CDT 08/28/2024 4:56 PM CDT us Suresh Wyman MD PhD LAB POCT ORDERABLE S - DEVICE Final Result Performing Organization Address [facility]/[place] [address] * POCT glucose (08/28/2024 12:03 PM CDT) Glucose, POC 157 70 - 199 mg/dL Blood 08/28/2024 12:0 3 PM CDT 08/28/2024 12:03 PM CDT us Suresh Wyman MD PhD LAB POCT ORDERABLE S - DEVICE Final Result Performing Organization Address City/[facility]/ZIP Co de Phone Number [facility] [place] [address] * POCT glucose (08/28/2024 7:45 AM CDT) Glucose, POC 113 70 - 199 mg/dL Blood 08/28/2024 7:45 AM CDT 08/28/2024 7:45 AM CDT us Suresh Wyman MD PhD LAB POCT ORDERABLE S - DEVICE Final Result [facility] [place] [place] [address] * POCT glucose (08/28/2024 5:39 AM CDT) Glucose, POC 107 70 - 199 mg/dL Blood 08/28/2024 5:39 AM CDT 08/28/2024 5:39 AM CDT us Suresh Wyman MD PhD LAB POCT ORDERABLE S - DEVICE Final Result Performing Organization Address [facility] Co de Phone Number [facility] Department [place] [address] * Lactate (08/28/2024 3:06 AM CDT) Pathologist [facility] Lactate 1.3 0.7 - 2.0 mmol/L Blood 08/28/2024 3:06 AM CDT 08/28/2024 4:18 AM CDT us Belen Maldonado WEAVING INSTRUCTOR LAB BLOOD ORDERABLES Final Result Performing Organization Address [facility] de Phone Number [facility] [place] [address] * eGFR (08/28/2024 3:06 AM CDT) Pathologist [facility] eGFR 66 >=60 mL/min/1. 73 m2 Comment: Interpretive Data Reference Interval Normal >/= 90 mL/min/1.73m2 Mildly decreased* 60 - 89 mL/min/1.73m2 Mildly to moderately decreased 45 - 59 mL/min/1.73m2 Moderately to severely decreased 30 - 44 mL/min/1.73m2 Severely decreased 15 - 29 mL/min/1.73m2 Kidney Failure < 15 mL/min/1.73m2 *Relative to young adult level Estimated glomerular filtration rate is determined by the 2020 CKD-EPI equation recommended by the National Kidney Foundation (A Unifying Approach to GFR Estimation: Recommendations of the NKF-ASK Task Force on Reassessing the Inclusion of Race in Diagnosing Kidney Disease, JASN 2020). The CKD-EPI equation should not be used for patients with unstable renal function and has not been validated in children and those over 70. Current interpretive data was last reviewed 2021. Blood 08/28/2024 3:06 AM CDT 08/28/2024 4:19 AM CDT us Nany Lorenz MD LAB BLOOD ORDERABLES F inal Result [facility] [place] [address] * (ABNORMAL) Differential, auto (08/28/2024 3:06 AM CDT) Neutrophil abs 5.0 1.5 - 6.5 K/cumm Imm gran abs 0.2(H) 0.0 - 0.1 K/cumm [facility] Lymphocyte abs 0.9 0.8 - 3.3 K/cumm [facility] Monocyte abs 1.0(H) 0.2 - 0.8 K/cumm [facility] Eosinophil abs 0.8(H) 0.0 - 0.5 K/cumm [facility] Basophil abs 0.1 0.0 - 0.1 K/cumm [facility] Neutrophil pct 63.0 % [facility] Comment: Interpretive Data Percent cell count reference ranges are not reported, since discordance with absolute values may lead to misinterpretation of CBC data. Current Interpretive Data was last revised on 2017. Imm gran pct 1.9 % [facility] Comment: Interpretive Data Percent cell count reference ranges are not reported, since discordance with absolute values may lead to misinterpretation of CBC data. Current Interpretive Data was last revised on 2017. Lymphocyte pct 11.2 % [facility] Comment: Interpretive Data Percent cell count reference ranges are not reported, since discordance with absolute values may lead to misinterpretation of CBC data. Current Interpretive Data was last revised on 2017. Monocyte pct 12.1 % [facility] Comment: Interpretive Data Percent cell count reference ranges are not reported, since discordance with absolute values may lead to misinterpretation of CBC data. Current Interpretive Data was last revised on 2017. Eosinophil pct 10.4 % [facility] Comment: Interpretive Data Percent cell count reference ranges are not reported, since discordance with absolute values may lead to misinterpretation of CBC data. Current Interpretive Data was last revised on 2017. Basophil pct 1.4 % [facility] Comment: Interpretive Data Percent cell count reference ranges are not reported, since discordance with absolute values may lead to misinterpretation of CBC data. Current Interpretive Data was last revised on 2017. Blood 08/28/2024 3:06 AM CDT 08/28/2024 4:19 AM CDT us Nany Lorenz MD LAB BLOOD ORDERABLES F inal Result [facility] Department [place] [address] * (ABNORMAL) CBC with auto differential (08/28/2024 3:06 AM CDT) Pathologist [facility] WBC 8.0 3.8 - 9.9 K/cumm Hgb 10.6(L) 13.0 - 17.5 g/dL [facility] Hct 31.7(L) 38.9 - 50.3 % [facility] Plt 252 150 - 400 K/cumm [facility] MPV 10.2 9.1 - 12.3 fL [facility] RBC 3.48(L) 4.30 - 5.80 M/cumm [facility] MCV 91.1 81.3 - 96.4 fL [facility] MCH 30.5 27.1 - 33.3 pg [facility] MCHC 33.4 32.3 - 35.7 g/dL [facility] RDW CV 14.3 11.1 - 14.9 % [facility] RDW SD 47.2 35.7 - 48.1 fL [facility] NRBC abs 0.00 0.00 - 0.01 K/cumm [facility] Blood 08/28/2024 3:06 AM CDT 08/28/2024 4:19 AM CDT Nany Lorenz MD LAB BLOOD ORDERABLES F inal Result Performing Organization Address [facility] Co de Phone Number [facility] [place] [address] * (ABNORMAL) Protime-INR (08/28/2024 3:06 AM CDT) Pathologist [facility] PT 16.2(H) 9.7 - 13.0 sec INR 1.49(H) 0.90 - 1.20 [facility] Comment: Interpretive data Oral anticoagulant therapeutic ranges: Venous thromboembolism prophylaxis or treatment: 2.0-3.0 CARDIOLOGY Standard range: 2.0-3.0 High-intensity range: 2.5-3.5 Refer to indication-specific guidelines for appropriate target ranges for prosthetic heart valve replacement. Current interpretive data was last revised on 2019. Blood 08/28/2024 3:06 AM CDT 08/28/2024 4:22 AM CDT Nany Lorenz MD LAB BLOOD ORDERABLES F inal Result Performing Organization Address [facility] [place] [address] * Magnesium (08/28/2024 3:06 AM CDT) Pathologist [facility] Magnesium 1.8 1.4 - 2.5 mg/dL Blood 08/28/2024 3:06 AM CDT 08/28/2024 4:19 AM CDT Nany Lorenz MD LAB BLOOD ORDERABLES F inal Result Performing Organization Address [facility] [place] [address] * (ABNORMAL) Basic metabolic panel (08/28/2024 3:06 AM CDT) Pathologist [facility] Sodium 142 135 - 145 mmol/L Potassium, pl 4.2 3.3 - 4.9 mmol/L [facility] Chloride 105 97 - 110 mmol/L [facility] CO2 30 22 - 32 mmol/L [facility] Anion gap 7 2 - 15 mmol/L [facility] BUN 7 6 - 25 mg/dL [facility] Creatinine 1.16 0.80 - 1.30 mg/dL [facility] Glucose 104 70 - 199 mg/dL [facility] Comment: Interpretive Data Fasting glucose >/= 126 mg/dl is diagnostic for diabetes. Fasting is defined as no caloric intake for at least 8 hours. Fasting glucose between 100 mg/dl to 125 mg/dl is diagnostic of prediabetes. In a patient with classic symptoms of hyperglycemia or hyperglycemic crisis, a random glucose >/= 200 mg/dl is diagnostic for diabetes. In the absence of unequivocal hyperglycemia, results should be confirmed by repeat testing. The classification and Diagnosis of Diabetes Diabetes Care 2021; 46: S19-S40. Current interpretive data was last revised 2022. Calcium 8.4(L) 8.5 - 10.3 mg/dL [facility] Blood 08/28/2024 3:06 AM CDT 08/28/2024 4:19 AM CDT us Nany Lorenz MD LAB BLOOD ORDERABLES F inal Result Performing Organization Address City/[facility]/ZIP Co de Phone Number [facility] Department [place] [employer] [place] [address] * POCT glucose (08/28/2024 2:51 AM CDT) Glucose, POC 100 70 - 199 mg/dL Blood 08/28/2024 2:51 AM CDT 08/28/2024 2:51 AM CDT us Suresh Wyman MD PhD LAB POCT ORDERABLE S - DEVICE Final Result Performing Organization Address [facility]/ZIP Co de Phone Number [facility] [place] [address] * POCT glucose (08/27/2024 11:09 PM CDT) Glucose, POC 122 70 - 199 mg/dL Blood 08/27/2024 11:0 9 PM CDT 08/27/2024 11:09 PM CDT us Suresh Wyman MD PhD LAB POCT ORDERABLE S - DEVICE Final Result Performing Organization Address City/[facility] [place] [address] * POCT glucose (08/27/2024 7:46 PM CDT) Glucose, POC 155 70 - 199 mg/dL Blood 08/27/2024 7:46 PM CDT 08/27/2024 7:46 PM CDT us Suresh Wyman MD PhD LAB POCT ORDERABLE S - DEVICE Final Result Performing Organization Address City/[facility]/[place] [address] * POCT glucose (08/27/2024 4:57 PM CDT) Glucose, POC 170 70 - 199 mg/dL Blood 08/27/2024 4:57 PM CDT 08/27/2024 4:57 PM CDT us Suresh Wyman MD PhD LAB POCT ORDERABLE S - DEVICE Final Result Performing Organization Address City/[facility] [place] [address] * POCT glucose (08/27/2024 10:58 AM CDT) Glucose, POC 122 70 - 199 mg/dL Blood 08/27/2024 10:5 8 AM CDT 08/27/2024 10:58 AM CDT us Suresh Wyman MD PhD LAB POCT ORDERABLE S - DEVICE Final Result Performing Organization Address [facility] de Phone Number [facility] [place] [address] * aPTT (08/27/2024 10:28 AM CDT) aPTT 37 28 - 38 sec Comment: Interpretive Data Heparin therapeutic range: 66.0 - 100.0 seconds. Range based on correlation with therapeutic heparin activity range of 0.3 - 0.7 Units/mL. Current interpretive data was last revised on 2023. Blood 08/27/2024 10:2 8 AM CDT 08/27/2024 10:56 AM CDT Narrative [facility] - 08/27/2024 11:23 AM CDT Baseline prior to warfarin initiation. us Maria Luisa Escamilla WEAVING INSTRUCTOR LAB BLOOD ORDERABLES Final Result Performing Organization Address [facility] [place] [address] * (ABNORMAL) Protime-INR (08/27/2024 10:28 AM CDT) PT 19.0(H) 9.7 - 13.0 sec INR 1.74(H) 0.90 - 1.20 [facility] Comment: Interpretive data Oral anticoagulant therapeutic ranges: Venous thromboembolism prophylaxis or treatment: 2.0-3.0 CARDIOLOGY Standard range: 2.0-3.0 High-intensity range: 2.5-3.5 Refer to indication-specific guidelines for appropriate target ranges for prosthetic heart valve replacement. Current interpretive data was last revised on 2019. Blood 08/27/2024 10:2 8 AM CDT 08/27/2024 10:56 AM CDT Narrative [facility] - 08/27/2024 11:23 AM CDT Baseline prior to warfarin initiation. Maria Luisa Escamilla NP LAB BLOOD ORDERABLES Final Result [facility] Department [place] [address] * (ABNORMAL) CBC without differential (08/27/2024 10:28 AM CDT) [facility] WBC 6.4 3.8 - 9.9 K/cumm Hgb 9.8(L) 13.0 - 17.5 g/dL [facility] Hct 29.7(L) 38.9 - 50.3 % [facility] Plt 208 150 - 400 K/cumm [facility] MPV 10.1 9.1 - 12.3 fL [facility] RBC 3.23(L) 4.30 - 5.80 M/cumm [facility] MCV 92.0 81.3 - 96.4 fL [facility] MCH 30.3 27.1 - 33.3 pg [facility] MCHC 33.0 32.3 - 35.7 g/dL [facility] RDW CV 14.1 11.1 - 14.9 % [facility] RDW SD 47.4 35.7 - 48.1 fL [facility] NRBC abs 0.00 0.00 - 0.01 K/cumm [facility] Blood 08/27/2024 10:2 8 AM CDT 08/27/2024 10:56 AM CDT Narrative [facility] - 08/27/2024 11:04 AM CDT Baseline prior to warfarin initiation. us Maria Luisa Escamilla NP LAB BLOOD ORDERABLES Final Result [facility] Department [place] [address] * POCT glucose (08/27/2024 7:26 AM CDT) [facility] Glucose, POC 87 70 - 199 mg/dL Blood 08/27/2024 7:26 AM CDT 08/27/2024 7:26 AM CDT Suresh Wyman MD PhD LAB POCT ORDERABLE S - DEVICE Final Result Performing Organization Address [facility] Co de Phone Number [facility] Department [place] [address] * POCT glucose (08/27/2024 4:40 AM CDT) [facility] Glucose, POC 74 70 - 199 mg/dL Blood 08/27/2024 4:40 AM CDT 08/27/2024 4:40 AM CDT Suresh Wyman MD PhD LAB POCT ORDERABLE S - DEVICE Final Result Performing Organization Address [facility] Co de Phone Number [facility] Department [place] [address] * Lactate (08/27/2024 4:39 AM CDT) [facility] Lactate 1.0 0.7 - 2.0 mmol/L Blood 08/27/2024 4:39 AM CDT 08/27/2024 5:38 AM CDT Belen Maldonado WEAVING INSTRUCTOR LAB BLOOD ORDERABLES Final Result Performing Organization Address City/[facility] Co de Phone Number [facility] [place] [place] [address] * (ABNORMAL) eGFR (08/27/2024 4:39 AM CDT) [facility] eGFR 56(L) >=60 mL/min/1. 73 m2 Comment: Interpretive Data Reference Interval Normal >/= 90 mL/min/1.73m2 Mildly decreased* 60 - 89 mL/min/1.73m2 Mildly to moderately decreased 45 - 59 mL/min/1.73m2 Moderately to severely decreased 30 - 44 mL/min/1.73m2 Severely decreased 15 - 29 mL/min/1.73m2 Kidney Failure < 15 mL/min/1.73m2 *Relative to young adult level Estimated glomerular filtration rate is determined by the 2020 CKD-EPI equation recommended by the National Kidney Foundation (A Unifying Approach to GFR Estimation: Recommendations of the NKF-ASK Task Force on Reassessing the Inclusion of Race in Diagnosing Kidney Disease, JASN 202). The CKD-EPI equation should not be used for patients with unstable renal function and has not been validated in children and those over 70. Current interpretive data was last reviewed 2021. Blood 08/27/2024 4:39 AM CDT 08/27/2024 5:38 AM CDT us Nany Lorenz MD LAB BLOOD ORDERABLES F inal Result [facility] [place] [address] * (ABNORMAL) Differential, auto (08/27/2024 4:39 AM CDT) Neutrophil abs 4.3 1.5 - 6.5 K/cumm Imm gran abs 0.1 0.0 - 0.1 K/cumm [facility] Lymphocyte abs 1.0 0.8 - 3.3 K/cumm [facility] Monocyte abs 1.0(H) 0.2 - 0.8 K/cumm [facility] Eosinophil abs 0.7(H) 0.0 - 0.5 K/cumm [facility] Basophil abs 0.1 0.0 - 0.1 K/cumm [facility] Neutrophil pct 60.0 % [facility] Comment: Interpretive Data Percent cell count reference ranges are not reported, since discordance with absolute values may lead to misinterpretation of CBC data. Current Interpretive Data was last revised on 2017. Imm gran pct 1.3 % [facility] Comment: Interpretive Data Percent cell count reference ranges are not reported, since discordance with absolute values may lead to misinterpretation of CBC data. Current Interpretive Data was last revised on 2017. Lymphocyte pct 13.4 % [facility] Comment: Interpretive Data Percent cell count reference ranges are not reported, since discordance with absolute values may lead to misinterpretation of CBC data. Current Interpretive Data was last revised on 2017. Monocyte pct 14.0 % [facility] Comment: Interpretive Data Percent cell count reference ranges are not reported, since discordance with absolute values may lead to misinterpretation of CBC data. Current Interpretive Data was last revised on 2017. Eosinophil pct 10.3 % [facility] Comment: Interpretive Data Percent cell count reference ranges are not reported, since discordance with absolute values may lead to misinterpretation of CBC data. Current Interpretive Data was last revised on 2017. Basophil pct 1.0 % [facility] Comment: Interpretive Data Percent cell count reference ranges are not reported, since discordance with absolute values may lead to misinterpretation of CBC data. Current Interpretive Data was last revised on 2017. Blood 08/27/2024 4:39 AM CDT 08/27/2024 5:38 AM CDT us Nany Lorenz MD LAB BLOOD ORDERABLES F inal Result [facility] Department [place] [address] * (ABNORMAL) CBC with auto differential (08/27/2024 4:39 AM CDT) Pathologist [facility] WBC 7.1 3.8 - 9.9 K/cumm Hgb 9.7(L) 13.0 - 17.5 g/dL [facility] Hct 29.4(L) 38.9 - 50.3 % [facility] Plt 233 150 - 400 K/cumm [facility] MPV 10.2 9.1 - 12.3 fL [facility] RBC 3.23(L) 4.30 - 5.80 M/cumm [facility] MCV 91.0 81.3 - 96.4 fL [facility] MCH 30.0 27.1 - 33.3 pg [facility] MCHC 33.0 32.3 - 35.7 g/dL [facility] RDW CV 14.0 11.1 - 14.9 % [facility] RDW SD 46.6 35.7 - 48.1 fL [facility] NRBC abs 0.00 0.00 - 0.01 K/cumm [facility] Blood 08/27/2024 4:39 AM CDT 08/27/2024 5:38 AM CDT Nany Lorenz MD LAB BLOOD ORDERABLES F inal Result Performing Organization Address [facility] de Phone Number [facility] Department [place] [place] [address] * (ABNORMAL) Protime-INR (08/27/2024 4:39 AM CDT) PT 18.6(H) 9.7 - 13.0 sec INR 1.70(H) 0.90 - 1.20 [facility] Comment: Interpretive data Oral anticoagulant therapeutic ranges: Venous thromboembolism prophylaxis or treatment: 2.0-3.0 CARDIOLOGY Standard range: 2.0-3.0 High-intensity range: 2.5-3.5 Refer to indication-specific guidelines for appropriate target ranges for prosthetic heart valve replacement. Current interpretive data was last revised on 2019. Blood 08/27/2024 4:39 AM CDT 08/27/2024 6:01 AM CDT Nany Lorenz MD LAB BLOOD ORDERABLES F inal Result Performing Organization Address [facility] Co de Phone Number [facility] Department [place] [place] [address] * Magnesium (08/27/2024 4:39 AM CDT) Magnesium 1.8 1.4 - 2.5 mg/dL Blood 08/27/2024 4:39 AM CDT 08/27/2024 5:38 AM CDT Nany Lorenz MD LAB BLOOD ORDERABLES F inal Result Performing Organization Address City/[facility]/ZIP Co de Phone Number [facility] Department [place] [address] * (ABNORMAL) Basic metabolic panel (08/27/2024 4:39 AM CDT) [facility] Sodium 143 135 - 145 mmol/L Potassium, pl 3.7 3.3 - 4.9 mmol/L [facility] Chloride 106 97 - 110 mmol/L [facility] CO2 29 22 - 32 mmol/L [facility] Anion gap 8 2 - 15 mmol/L [facility] BUN 11 6 - 25 mg/dL [facility] Creatinine 1.33(H) 0.80 - 1.30 mg/dL [facility] Glucose 169 70 - 199 mg/dL [facility] Comment: Interpretive Data Fasting glucose >/= 126 mg/dl is diagnostic for diabetes. Fasting is defined as no caloric intake for at least 8 hours. Fasting glucose between 100 mg/dl to 125 mg/dl is diagnostic of prediabetes. In a patient with classic symptoms of hyperglycemia or hyperglycemic crisis, a random glucose >/= 200 mg/dl is diagnostic for diabetes. In the absence of unequivocal hyperglycemia, results should be confirmed by repeat testing. The classification and Diagnosis of Diabetes Diabetes Care 2021; 46: S19-S40. Current interpretive data was last revised 2022. Calcium 8.2(L) 8.5 - 10.3 mg/dL [facility] Blood 08/27/2024 4:39 AM CDT 08/27/2024 5:38 AM CDT Nany Lorenz MD LAB BLOOD ORDERABLES F inal Result Performing Organization Address [facility]/ZIP Co de Phone Number [facility] [place] [address] * POCT glucose (08/27/2024 12:39 AM CDT) Glucose, POC 133 70 - 199 mg/dL Blood 08/27/2024 12:3 9 AM CDT 08/27/2024 12:39 AM CDT us Suresh Wyman MD PhD LAB POCT ORDERABLE S - DEVICE Final Result Performing Organization Address City/[facility] [place] [address] * (ABNORMAL) POCT glucose (08/27/2024 12:07 AM CDT) Glucose, POC 54(C) 70 - 199 mg/dL Blood 08/27/2024 12:0 7 AM CDT 08/27/2024 12:07 AM CDT us Suresh Wyman MD PhD LAB POCT ORDERABLE S - DEVICE Final Result Performing Organization Address [facility] [place] [address] * POCT glucose (08/26/2024 8:05 PM CDT) Glucose, POC 70 70 - 199 mg/dL Blood 08/26/2024 8:05 PM CDT 08/26/2024 8:05 PM CDT us Suresh Wyman MD PhD LAB POCT ORDERABLE S - DEVICE Final Result Performing Organization Address [facility] [place] [address] * POCT glucose (08/26/2024 4:41 PM CDT) Glucose, POC 72 70 - 199 mg/dL Blood 08/26/2024 4:41 PM CDT 08/26/2024 4:41 PM CDT us Suresh Wyman MD PhD LAB POCT ORDERABLE S - DEVICE Final Result Performing Organization Address [facility] de Phone Number [facility] [place] [address] * POCT glucose (08/26/2024 11:54 AM CDT) Glucose, POC 91 70 - 199 mg/dL Blood 08/26/2024 11:5 4 AM CDT 08/26/2024 11:54 AM CDT us Suresh Wyman MD PhD LAB POCT ORDERABLE S - DEVICE Final Result Performing Organization Address [facility] de Phone Number [facility] [place] [address] * POCT glucose (08/26/2024 8:01 AM CDT) Glucose, POC 76 70 - 199 mg/dL Blood 08/26/2024 8:01 AM CDT 08/26/2024 8:01 AM CDT us Suresh Wyman MD PhD LAB POCT ORDERABLE S - DEVICE Final Result Performing Organization Address [facility] de Phone Number [facility] [place] [address] * Lactate (08/26/2024 4:06 AM CDT) Lactate 1.7 0.7 - 2.0 mmol/L Blood 08/26/2024 4:06 AM CDT 08/26/2024 4:53 AM CDT us Belen Maldonado NP LAB BLOOD ORDERABLES Final Result Performing Organization Address [facility] Co de Phone Number [facility] Department [place] [address] * eGFR (08/26/2024 4:06 AM CDT) eGFR 64 >=60 mL/min/1. 73 m2 Comment: Interpretive Data Reference Interval Normal >/= 90 mL/min/1.73m2 Mildly decreased* 60 - 89 mL/min/1.73m2 Mildly to moderately decreased 45 - 59 mL/min/1.73m2 Moderately to severely decreased 30 - 44 mL/min/1.73m2 Severely decreased 15 - 29 mL/min/1.73m2 Kidney Failure < 15 mL/min/1.73m2 *Relative to young adult level Estimated glomerular filtration rate is determined by the 2020 CKD-EPI equation recommended by the National Kidney Foundation (A Unifying Approach to GFR Estimation: Recommendations of the NKF-ASK Task Force on Reassessing the Inclusion of Race in Diagnosing Kidney Disease, JASN 2020). The CKD-EPI equation should not be used for patients with unstable renal function and has not been validated in children and those over 70. Current interpretive data was last reviewed 2021. Blood 08/26/2024 4:06 AM CDT 08/26/2024 4:53 AM CDT Nany Lorenz MD LAB BLOOD ORDERABLES F inal Result Performing Organization Address City/[facility]/ZIP Co de Phone Number [facility] Department [place] [address] * (ABNORMAL) Differential, auto (08/26/2024 4:06 AM CDT) Neutrophil abs 4.1 1.5 - 6.5 K/cumm Imm gran abs 0.1 0.0 - 0.1 K/cumm [facility] Lymphocyte abs 0.9 0.8 - 3.3 K/cumm [facility] Monocyte abs 1.0(H) 0.2 - 0.8 K/cumm [facility] Eosinophil abs 0.7(H) 0.0 - 0.5 K/cumm [facility] Basophil abs 0.1 0.0 - 0.1 K/cumm [facility] Neutrophil pct 59.6 % [facility] Comment: Interpretive Data Percent cell count reference ranges are not reported, since discordance with absolute values may lead to misinterpretation of CBC data. Current Interpretive Data was last revised on 2017. Imm gran pct 1.3 % [facility] Comment: Interpretive Data Percent cell count reference ranges are not reported, since discordance with absolute values may lead to misinterpretation of CBC data. Current Interpretive Data was last revised on 2017. Lymphocyte pct 12.9 % [facility] Comment: Interpretive Data Percent cell count reference ranges are not reported, since discordance with absolute values may lead to misinterpretation of CBC data. Current Interpretive Data was last revised on 2017. Monocyte pct 14.7 % [facility] Comment: Interpretive Data Percent cell count reference ranges are not reported, since discordance with absolute values may lead to misinterpretation of CBC data. Current Interpretive Data was last revised on 2017. Eosinophil pct 10.0 % [facility] Comment: Interpretive Data Percent cell count reference ranges are not reported, since discordance with absolute values may lead to misinterpretation of CBC data. Current Interpretive Data was last revised on 2017. Basophil pct 1.5 % [facility] Comment: Interpretive Data Percent cell count reference ranges are not reported, since discordance with absolute values may lead to misinterpretation of CBC data. Current Interpretive Data was last revised on 2017. Blood 08/26/2024 4:06 AM CDT 08/26/2024 4:54 AM CDT us Nany Lorenz MD LAB BLOOD ORDERABLES F inal Result [facility] [place] [address] * POCT glucose (08/26/2024 4:06 AM CDT) [facility] Glucose, POC 74 70 - 199 mg/dL Blood 08/26/2024 4:06 AM CDT 08/26/2024 4:06 AM CDT us Suresh Wyman MD PhD LAB POCT ORDERABLE S - DEVICE Final Result Performing Organization Address [facility] de Phone Number [facility] Department [place] [place] [address] * (ABNORMAL) CBC with auto differential (08/26/2024 4:06 AM CDT) [facility] WBC 6.8 3.8 - 9.9 K/cumm Hgb 10.1(L) 13.0 - 17.5 g/dL [facility] Hct 31.0(L) 38.9 - 50.3 % [facility] Plt 225 150 - 400 K/cumm [facility] MPV 10.2 9.1 - 12.3 fL [facility] RBC 3.35(L) 4.30 - 5.80 M/cumm [facility] MCV 92.5 81.3 - 96.4 fL [facility] MCH 30.1 27.1 - 33.3 pg [facility] MCHC 32.6 32.3 - 35.7 g/dL [facility] RDW CV 14.0 11.1 - 14.9 % [facility] RDW SD 47.3 35.7 - 48.1 fL [facility] NRBC abs 0.00 0.00 - 0.01 K/cumm [facility] Blood 08/26/2024 4:06 AM CDT 08/26/2024 4:54 AM CDT us Nany Lorenz MD LAB BLOOD ORDERABLES F inal Result Performing Organization Address [facility]/ZIP Co de Phone Number [facility] Department [place] [address] * (ABNORMAL) Protime-INR (08/26/2024 4:06 AM CDT) [facility] PT 20.7(H) 9.7 - 13.0 sec INR 1.89(H) 0.90 - 1.20 [facility] Comment: Interpretive data Oral anticoagulant therapeutic ranges: Venous thromboembolism prophylaxis or treatment: 2.0-3.0 CARDIOLOGY Standard range: 2.0-3.0 High-intensity range: 2.5-3.5 Refer to indication-specific guidelines for appropriate target ranges for prosthetic heart valve replacement. Current interpretive data was last revised on 2019. Blood 08/26/2024 4:06 AM CDT 08/26/2024 5:03 AM CDT Nany Lorenz MD LAB BLOOD ORDERABLES F inal Result Performing Organization Address City/[facility]/ZIP Co de Phone Number [facility] Department [place] [address] * Magnesium (08/26/2024 4:06 AM CDT) [facility] Magnesium 1.6 1.4 - 2.5 mg/dL Blood 08/26/2024 4:06 AM CDT 08/26/2024 4:53 AM CDT Nany Lorenz MD LAB BLOOD ORDERABLES F inal Result [facility] [place] [address] * (ABNORMAL) Basic metabolic panel (08/26/2024 4:06 AM CDT) [facility] Sodium 144 135 - 145 mmol/L Potassium, pl 3.8 3.3 - 4.9 mmol/L [facility] Chloride 106 97 - 110 mmol/L [facility] CO2 29 22 - 32 mmol/L [facility] Anion gap 9 2 - 15 mmol/L [facility] BUN 11 6 - 25 mg/dL [facility] Creatinine 1.18 0.80 - 1.30 mg/dL [facility] Glucose 77 70 - 199 mg/dL [facility] Comment: Interpretive Data Fasting glucose >/= 126 mg/dl is diagnostic for diabetes. Fasting is defined as no caloric intake for at least 8 hours. Fasting glucose between 100 mg/dl to 125 mg/dl is diagnostic of prediabetes. In a patient with classic symptoms of hyperglycemia or hyperglycemic crisis, a random glucose >/= 200 mg/dl is diagnostic for diabetes. In the absence of unequivocal hyperglycemia, results should be confirmed by repeat testing. The classification and Diagnosis of Diabetes Diabetes Care 2021; 46: S19-S40. Current interpretive data was last revised 2022. Calcium 8.2(L) 8.5 - 10.3 mg/dL [facility] Blood 08/26/2024 4:06 AM CDT 08/26/2024 4:53 AM CDT us Nany Lorenz MD LAB BLOOD ORDERABLES F inal Result Performing Organization Address City/[facility]/ZIP Co de Phone Number [facility] Department [place] [address] * POCT glucose (08/25/2024 11:34 PM CDT) Glucose, POC 91 70 - 199 mg/dL Comment:Glu2: RN/MD Notified Glucose comment 1 Glu2: RN/MD Notified [facility] Blood 08/25/2024 11:3 4 PM CDT 08/25/2024 11:34 PM CDT us Suresh Wyman MD PhD LAB POCT ORDERABLE S - DEVICE Final Result [facility] [place] [address] * POCT glucose (08/25/2024 8:12 PM CDT) Glucose, POC 94 70 - 199 mg/dL Comment:Glu2: RN/MD Notified Glucose comment 1 Glu2: RN/MD Notified [facility] Blood 08/25/2024 8:12 PM CDT 08/25/2024 8:12 PM CDT us Suresh Wyman MD PhD LAB POCT ORDERABLE S - DEVICE Final Result Performing Organization Address City/[facility] Co de Phone Number [facility] Department [place] [address] * POCT glucose (08/25/2024 4:48 PM CDT) Glucose, POC 122 70 - 199 mg/dL Blood 08/25/2024 4:48 PM CDT 08/25/2024 4:48 PM CDT us Suresh Wyman MD PhD LAB POCT ORDERABLE S - DEVICE Final Result Performing Organization Address City/[facility] Co de Phone Number [facility] [place] [employer] [place] [address] * POCT glucose (08/25/2024 11:40 AM CDT) Glucose, POC 127 70 - 199 mg/dL Blood 08/25/2024 11:4 0 AM CDT 08/25/2024 11:40 AM CDT us Suresh Wyman MD PhD LAB POCT ORDERABLE S - DEVICE Final Result Performing Organization Address City/[facility] Co de Phone Number [facility] [place] [place] [address] * POCT glucose (08/25/2024 9:08 AM CDT) Glucose, POC 95 70 - 199 mg/dL Blood 08/25/2024 9:08 AM CDT 08/25/2024 9:08 AM CDT us Suresh Wyman MD PhD LAB POCT ORDERABLE S - DEVICE Final Result Performing Organization Address City/[facility] Co de Phone Number [facility] [place] [address] * Lactate (08/24/2024 8:13 PM CDT) Lactate 1.0 0.7 - 2.0 mmol/L Blood 08/24/2024 8:13 PM CDT 08/24/2024 8:28 PM CDT us Nany Lorenz MD LAB BLOOD ORDERABLES F inal Result Performing Organization Address [facility] de Phone Number [facility] [place] [address] * eGFR (08/24/2024 8:13 PM CDT) eGFR 60 >=60 mL/min/1. 73 m2 Comment: Interpretive Data Reference Interval Normal >/= 90 mL/min/1.73m2 Mildly decreased* 60 - 89 mL/min/1.73m2 Mildly to moderately decreased 45 - 59 mL/min/1.73m2 Moderately to severely decreased 30 - 44 mL/min/1.73m2 Severely decreased 15 - 29 mL/min/1.73m2 Kidney Failure < 15 mL/min/1.73m2 *Relative to young adult level Estimated glomerular filtration rate is determined by the 2020 CKD-EPI equation recommended by the National Kid[employer] (A Unifying Approach to GFR Estimation: Recommendations of the NKF-ASK Task Force on Reassessing the Inclusion of Race in Diagnosing Kidney Disease, JASN 2020). The CKD-EPI equation should not be used for patients with unstable renal function and has not been validated in children and those over 70. Current interpretive data was last reviewed 2021. Blood 08/24/2024 8:13 PM CDT 08/24/2024 8:28 PM CDT us Nany Lorenz MD LAB BLOOD ORDERABLES F inal Result [facility] [place] [address] * (ABNORMAL) Differential, auto (08/24/2024 8:13 PM CDT) Neutrophil abs 5.3 1.5 - 6.5 K/cumm Imm gran abs 0.1 0.0 - 0.1 K/cumm [facility] Lymphocyte abs 0.6(L) 0.8 - 3.3 K/cumm [facility] Monocyte abs 1.0(H) 0.2 - 0.8 K/cumm [facility] Eosinophil abs 0.6(H) 0.0 - 0.5 K/cumm [facility] Basophil abs 0.1 0.0 - 0.1 K/cumm [facility] Neutrophil pct 69.4 % [facility] Comment: Interpretive Data Percent cell count reference ranges are not reported, since discordance with absolute values may lead to misinterpretation of CBC data. Current Interpretive Data was last revised on 2017. Imm gran pct 0.8 % [facility] Comment: Interpretive Data Percent cell count reference ranges are not reported, since discordance with absolute values may lead to misinterpretation of CBC data. Current Interpretive Data was last revised on 2017. Lymphocyte pct 8.0 % [facility] Comment: Interpretive Data Percent cell count reference ranges are not reported, since discordance with absolute values may lead to misinterpretation of CBC data. Current Interpretive Data was last revised on 2017. Monocyte pct 13.6 % [facility] Comment: Interpretive Data Percent cell count reference ranges are not reported, since discordance with absolute values may lead to misinterpretation of CBC data. Current Interpretive Data was last revised on 2017. Eosinophil pct 7.4 % [facility] Comment: Interpretive Data Percent cell count reference ranges are not reported, since discordance with absolute values may lead to misinterpretation of CBC data. Current Interpretive Data was last revised on 2017. Basophil pct 0.8 % [facility] Comment: Interpretive Data Percent cell count reference ranges are not reported, since discordance with absolute values may lead to misinterpretation of CBC data. Current Interpretive Data was last revised on 2017. Blood 08/24/2024 8:13 PM CDT 08/24/2024 8:21 PM CDT Nany Lorenz MD LAB BLOOD ORDERABLES F inal Result [facility] [place] [address] * (ABNORMAL) CBC with auto differential (08/24/2024 8:13 PM CDT) WBC 7.6 3.8 - 9.9 K/cumm Hgb 10.1(L) 13.0 - 17.5 g/dL [facility] Hct 30.4(L) 38.9 - 50.3 % [facility] Plt 204 150 - 400 K/cumm [facility] MPV 10.5 9.1 - 12.3 fL [facility] RBC 3.38(L) 4.30 - 5.80 M/cumm [facility] MCV 89.9 81.3 - 96.4 fL [facility] MCH 29.9 27.1 - 33.3 pg [facility] MCHC 33.2 32.3 - 35.7 g/dL [facility] RDW CV 13.8 11.1 - 14.9 % [facility] RDW SD 45.3 35.7 - 48.1 fL [facility] NRBC abs 0.00 0.00 - 0.01 K/cumm [facility] Blood 08/24/2024 8:13 PM CDT 08/24/2024 8:21 PM CDT Nany Lorenz MD LAB BLOOD ORDERABLES F inal Result [facility] [place] [address] * (ABNORMAL) Protime-INR (08/24/2024 8:13 PM CDT) [facility] PT 27.3(H) 9.7 - 13.0 sec INR 2.48(H) 0.90 - 1.20 [facility] Comment: Interpretive data Oral anticoagulant therapeutic ranges: Venous thromboembolism prophylaxis or treatment: 2.0-3.0 CARDIOLOGY Standard range: 2.0-3.0 High-intensity range: 2.5-3.5 Refer to indication-specific guidelines for appropriate target ranges for prosthetic heart valve replacement. Current interpretive data was last revised on 2019. Blood 08/24/2024 8:13 PM CDT 08/24/2024 8:27 PM CDT Nany Lorenz MD LAB BLOOD ORDERABLES F inal Result Performing Organization Address City/[facility]/ZIP Co de Phone Number [facility] [place] [address] * (ABNORMAL) Magnesium (08/24/2024 8:13 PM CDT) [facility] Magnesium 1.2(L) 1.4 - 2.5 mg/dL Blood 08/24/2024 8:13 PM CDT 08/24/2024 8:28 PM CDT Nany Lorenz MD LAB BLOOD ORDERABLES [place] [address] * (ABNORMAL) Basic metabolic panel (08/24/2024 8:13 PM CDT) [facility] Sodium 139 135 - 145 mmol/L Potassium, pl 3.8 3.3 - 4.9 mmol/L [facility] Chloride 102 97 - 110 mmol/L [facility] CO2 28 22 - 32 mmol/L [facility] Anion gap 9 2 - 15 mmol/L [facility] BUN 14 6 - 25 mg/dL [facility] Creatinine 1.25 0.80 - 1.30 mg/dL [facility] Glucose 169 70 - 199 mg/dL [facility] Comment: Interpretive Data Fasting glucose >/= 126 mg/dl is diagnostic for diabetes. Fasting is defined as no caloric intake for at least 8 hours. Fasting glucose between 100 mg/dl to 125 mg/dl is diagnostic of prediabetes. In a patient with classic symptoms of hyperglycemia or hyperglycemic crisis, a random glucose >/= 200 mg/dl is diagnostic for diabetes. In the absence of unequivocal hyperglycemia, results should be confirmed by repeat testing. The classification and Diagnosis of Diabetes Diabetes Care 202; 46: S19-S40. Current interpretive data was last revised 2022. Calcium 7.8(L) 8.5 - 10.3 mg/dL [facility] Blood 08/24/2024 8:13 PM CDT 08/24/2024 8:28 PM CDT us Nany Lorenz MD LAB BLOOD ORDERABLES F inal Result Performing Organization Address City/[facility]/ZIP Co de Phone Number [facility] Department [place] [address] * POCT glucose (08/24/2024 8:12 PM CDT) [facility] Glucose, POC 159 70 - 199 mg/dL Blood 08/24/2024 8:12 PM CDT 08/24/2024 8:12 PM CDT us Suresh Wyman MD PhD LAB POCT ORDERABLE S - DEVICE Final Result Performing Organization Address City/[facility]/ZIP Co de Phone Number [facility] Department [place] [place] [address] * (ABNORMAL) C. difficile testing Stool (08/24/2024 7:01 PM CDT) [facility] Result Positive Negative Toxin Result Positive Negative [facility] C. diff result Positive, free toxin(A) Negative, free toxin [facility] C. diff interp Toxigenic Clostridioides (Clostridium) difficile detected. Analysis was performed using a two-step methodology using glutamate dehydrogenase antigen detection followed by detection of C. difficile toxin(s). [facility] Stool 08/24/2024 7:01 PM CDT 08/24/2024 8:43 PM CDT Narrative [facility] - 08/24/2024 10:35 PM CDT Testing for C. difficile is not recommended within 4 days of a negative result, 10 days of a positive, or 24 hours after laxative administration. If this order is clinically indicated, contact the lab and enter the passcode to complete this order.->[id number] Belen Maldonado LAB MICROBIOLOGY - GENERAL ORDERABLES Final Result Performing Organization Address [facility] Co de Phone Number [facility] Department [place] [address] * (ABNORMAL) Infection Prevention VRE Culture Stool Rectum (08/24/2024 7:01 PM CDT) Pathologist [facility] Report Final Report: Enterococcus species, vancomycin resistant (.) Organism ENTEROCOCCUS SPECIES, VANCOMYCIN RESISTANT [facility] Stool (Rectum) 08/24/2024 7: 01 PM CDT 08/24/2024 8:43 PM CDT Narrative [facility] - 08/26/2024 6:01 PM CDT Surveillance culture for Infection Prevention purposes only; results indicate colonization, not infection requiring treatment. Testing performed by [facility] ([phone]). Belen Maldonado [employer] LAB MICROBIOLOGY - GENERAL ORDERABLES Final Result Performing Organization Address City/[facility]/ZIP Co de Phone Number [facility] Department [place] [address] * Lactate (08/24/2024 6:34 PM CDT) [facility] Lactate 1.6 0.7 - 2.0 mmol/L Blood 08/24/2024 6:34 PM CDT 08/24/2024 6:43 PM CDT Belen Maldonado [employer] IN[employer] LAB BLOOD ORDERABLES Final Result Performing Organization Address City/[facility]/ZIP Co de Phone Number [facility] Department [place] [address] * (ABNORMAL) CBC without differential (08/24/2024 6:34 PM CDT) [facility] WBC 8.8 3.8 - 9.9 K/cumm Hgb 10.9(L) 13.0 - 17.5 g/dL [facility] Hct 32.4(L) 38.9 - 50.3 % [facility] Plt 231 150 - 400 K/cumm [facility] MPV 10.3 9.1 - 12.3 fL [facility] RBC 3.64(L) 4.30 - 5.80 M/cumm [facility] MCV 89.0 81.3 - 96.4 fL [facility] MCH 29.9 27.1 - 33.3 pg [facility] MCHC 33.6 32.3 - 35.7 g/dL [facility] RDW CV 13.7 11.1 - 14.9 % [facility] RDW SD 44.8 35.7 - 48.1 fL [facility] NRBC abs 0.00 0.00 - 0.01 K/cumm [facility] Blood 08/24/2024 6:34 PM CDT 08/24/2024 6:43 PM CDT Belen Maldonado [employer] INSTRU[employer] LAB BLOOD ORDERABLES Final Result Performing Organization Address City/[facility]/ZIP Co de Phone Number [facility] Department [place] [address] * POCT glucose (08/24/2024 4:51 PM CDT) Glucose, POC 179 70 - 199 mg/dL Blood 08/24/2024 4:51 PM CDT 08/24/2024 4:51 PM CDT Suresh Wyman MD PhD LAB POCT ORDERABLE S - DEVICE Final Result Performing Organization Address [facility] Co de Phone Number [facility] [place] [address] * Type and screen (08/24/2024 12:03 PM CDT) [facility] Annetta, indirect Negative Comment:Patient has previous antibody history ABO Rh O Negative [facility] Blood 08/24/2024 12:0 3 PM CDT 08/24/2024 12:31 PM CDT Narrative [facility] - 08/24/2024 1:24 PM CDT Has the patient had Daratumumab or Isatuximab in the past 6 months?->Unknown Belen Maldonado [employer] LAB BLOOD BANK TEST ORDERAB LES Final Result Performing Organization Address [facility] de Phone Number [facility] [place] [address] * POCT glucose (08/24/2024 11:16 AM CDT) Glucose, POC 167 70 - 199 mg/dL Blood 08/24/2024 11:1 6 AM CDT 08/24/2024 11:16 AM CDT us Suresh Wyman MD PhD LAB POCT ORDERABLE S - DEVICE Final Result Performing Organization Address [facility] Co de Phone Number [facility] [place] [address] * (ABNORMAL) Protime-INR (08/24/2024 10:11 AM CDT) Pathologist [facility] PT 25.8(H) 9.7 - 13.0 sec INR 2.35(H) 0.90 - 1.20 [facility] Comment: Interpretive data Oral anticoagulant therapeutic ranges: Venous thromboembolism prophylaxis or treatment: 2.0-3.0 CARDIOLOGY Standard range: 2.0-3.0 High-intensity range: 2.5-3.5 Refer to indication-specific guidelines for appropriate target ranges for prosthetic heart valve replacement. Current interpretive data was last revised on 2019. Blood 08/24/2024 10:1 1 AM CDT 08/24/2024 10:23 AM CDT Belen Maldonado NP LAB BLOOD ORDERABLES Final Result [facility] [place] [address] * (ABNORMAL) CBC without differential (08/24/2024 10:11 AM CDT) Pathologist [facility] WBC 8.5 3.8 - 9.9 K/cumm Hgb 10.9(L) 13.0 - 17.5 g/dL [facility] Hct 32.7(L) 38.9 - 50.3 % [facility] Plt 202 150 - 400 K/cumm [facility] MPV 10.3 9.1 - 12.3 fL [facility] RBC 3.62(L) 4.30 - 5.80 M/cumm [facility] MCV 90.3 81.3 - 96.4 fL [facility] MCH 30.1 27.1 - 33.3 pg [facility] MCHC 33.3 32.3 - 35.7 g/dL [facility] RDW CV 13.8 11.1 - 14.9 % [facility] RDW SD 45.7 35.7 - 48.1 fL [facility] NRBC abs 0.00 0.00 - 0.01 K/cumm [facility] Blood 08/24/2024 10:1 1 AM CDT 08/24/2024 10:24 AM CDT Belen Maldonado WE[employer] INSTRUCTOR LAB BLOOD ORDERABLES Final Result Performing Organization Address [facility] Co de Phone Number [facility] [place] [address] * Type and screen (08/24/2024 10:11 AM CDT) ABO Rh O Negative Annetta, indirect Negative [facility] Comment:Patient has previous antibody history Blood 08/24/2024 10:1 1 AM CDT 08/24/2024 10:25 AM CDT Narrative [facility] - 08/24/2024 11:16 AM CDT Has the patient had Daratumumab or Isatuximab in the past 6 months?->Unknown Belen Maldonado WE[employer] IN[employer]CTOR LAB BLOOD BANK TEST ORDERAB LES Final Result Performing Organization Address [facility] Co de Phone Number [facility] [place] [address] * POCT glucose (08/24/2024 8:26 AM CDT) Glucose, POC 174 70 - 199 mg/dL Blood 08/24/2024 8:26 AM CDT 08/24/2024 8:26 AM CDT Suresh Wyman MD PhD LAB POCT ORDERABLE S - DEVICE Final Result Performing Organization Address [facility] Co de Phone Number [facility] [place] [address] * (ABNORMAL) POCT glucose (08/24/2024 2:45 AM CDT) Glucose, POC 205(H) 70 - 199 mg/dL Blood 08/24/2024 2:45 AM CDT 08/24/2024 2:45 AM CDT us Suresh Wyman MD PhD LAB POCT ORDERABLE S - DEVICE Final Result Performing Organization Address [facility] Co de Phone Number [facility] [place] [address] * Lactate (08/23/2024 10:17 PM CDT) Lactate 1.1 0.7 - 2.0 mmol/L Blood 08/23/2024 10:1 7 PM CDT 08/23/2024 10:30 PM CDT us Anil Holm MD LAB BLOOD ORDERABLES Fi nal Result Performing Organization Address [facility] Co de Phone Number [facility] [place] [address] * (ABNORMAL) Iron profile w/ IBC (08/23/2024 8:32 PM CDT) [facility] Iron 39(L) 50 - 150 mcg/dL TIBC 152(L) 250 - 400 mcg/dL [facility] Transferrin saturation 26 20 - 50 % [facility] Blood 08/23/2024 8:32 PM CDT 08/23/2024 8:49 PM CDT us Suresh Wyman MD PhD LAB BLOOD ORDERABL ES Final Result Performing Organization Address [facility] [place] [address] * (ABNORMAL) Fibrinogen (08/23/2024 8:32 PM CDT) Fibrinogen 406(H) 170 - 400 mg/dL Blood 08/23/2024 8:32 PM CDT 08/23/2024 8:52 PM CDT Anil Holm MD LAB BLOOD ORDERABLES Fi nal Result Performing Organization Address [facility] Co de Phone Number [facility] [place] [place] [address] * (ABNORMAL) Lactate dehydrogenase (LD) (08/23/2024 8:32 PM CDT) Lactate dehydrogenase (LDH) 261(H) 100 - 250 Units/L Blood 08/23/2024 8:32 PM CDT 08/23/2024 8:49 PM CDT Anil Holm MD LAB BLOOD ORDERABLES Fi nal Result Performing Organization Address [facility] [place] [address] * Troponin I high-sensitivity 4-hour (08/23/2024 7:40 PM CDT) Pathologist [facility] Trop I hs 10 <=35 ng/L Comment: Interpretive Data For further hscTnI resources including the diagnostic algorithm and an aid in interpretation, copy and paste this link: [email or web address].testcatalog.org/show/[email or web address] Current Interpretive Data last revised 2019. Trop I hs delta 0 ng/L [facility] Trop I hs interp Insignificant [facility] Blood 08/23/2024 7:40 PM CDT 08/23/2024 7:52 PM CDT Anil Holm MD LAB BLOOD ORDERABLES Fi nal Result Performing Organization Address [facility] [place] [address] * CT Abdomen Pelvis W WO Contrast (08/23/2024 7:35 PM CDT) Anatomical Region Laterality Modality Body N/A Computed Tomogra phy 08/23/2024 7:55 PM CDT Impressions 08/23/2024 8:57 PM CDT 1. 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 Recommend correlation with lactate levels. No active arterial gastrointestinal bleeding. 2. Faint pericystic fat stranding, could be related to cystitis. Recommend correlation with urinalysis. 3. Left ventricular assist device with no evidence of transplant infection and unchanged pannus along the outflow tract. Dictated by: Obey Davenport MD The radiology attending physician has personally reviewed this study, and had reviewed and/or edited this written report and agrees with it. Electronically signed by: Kevin Bonilla M.D. Narrative 08/23/2024 8:57 PM CDT EXAMINATION: Computed tomography of the abdomen and pelvis with and without intravenous contrast HISTORY: Right lower quadrant abdominal pain with black or bloody stool TECHNIQUE: Transaxial computed tomographic images of the abdomen and pelvis were obtained with and without intravenous contrast according to the ischemic bowel/GI bleeding protocol after the uneventful administration of 100 mL Opti-Ray 350 intravenous contrast. COMPARISON: 05/26/2024 CT FINDINGS: Partially imaged thorax shows findings of left ventricular assist device with mild pannus along the left ventricular outflow tract, similar from 05/26/2024. Multivessel coronary arterial calcifications. Pacemaker leads terminate in the right atrium, right ventricle, and coronary sinus. Moderate cardiomegaly, unchanged. Small right loculated pleural effusion, which is likely a chronic right pneumothorax. No left pleural effusion.. Mild pulmonary edema. Normal liver, spleen, pancreas, both adrenal glands, and both kidneys. Cholelithiasis. No cholecystitis. Urinary bladder is partially decompressed with mild pericystic fat stranding. Prostate is present. Mild bowel wall thickening of the sigmoid colon and rectum into the sigmoid colon. Normal appendix. The small bowel is normal in wall thickness and caliber. No evidence of bowel obstruction. 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 There are severe calcifications of the inferior mesenteric artery and its branches, similar from 05/26/2024. The aorta itself has mild atherosclerotic calcifications. No abdominal pelvic lymphadenopathy. Tracer retroperitoneal edema. No pneumoperitoneum. Left ventral wall fat-containing hernia with surrounding mesh. The left ventricular assist device drive line appears intact and without surrounding inflammation. No suspicious osseous lesion. Changes of median sternotomy. Procedure Note Kevin Bonilla MD - 08/23/2024 EXAMINATION: Computed tomography of the abdomen and pelvis with and without intravenous contrast HISTORY: Right lower quadrant abdominal pain with black or bloody stool TECHNIQUE: Transaxial computed tomographic images of the abdomen and pelvis were obtained with and without intravenous contrast according to the ischemic bowel/GI bleeding protocol after the uneventful administration of 100 mL Opti-Ray 350 intravenous contrast. COMPARISON: 05/26/2024 CT FINDINGS: Partially imaged thorax shows findings of left ventricular assist device with mild pannus along the left ventricular outflow tract, similar from 05/26/2024. Multivessel coronary arterial calcifications. Pacemaker leads terminate in the right atrium, right ventricle, and coronary sinus. Moderate cardiomegaly, unchanged. Small right loculated pleural effusion, which is likely a chronic right pneumothorax. No left pleural effusion.. Mild pulmonary edema. Normal liver, spleen, pancreas, both adrenal glands, and both kidneys. Cholelithiasis. No cholecystitis. Urinary bladder is partially decompressed with mild pericystic fat stranding. Prostate is present. Mild bowel wall thickening of the sigmoid colon and rectum into the sigmoid colon. Normal appendix. The small bowel is normal in wall thickness and caliber. No evidence of bowel obstruction. 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 There are severe calcifications of the inferior mesenteric artery and its branches, similar from 05/26/2024. The aorta itself has mild atherosclerotic calcifications. No abdominal pelvic lymphadenopathy. Tracer retroperitoneal edema. No pneumoperitoneum. Left ventral wall fat-containing hernia with surrounding mesh. The left ventricular assist device drive line appears intact and without surrounding inflammation. No suspicious osseous lesion. Changes of median sternotomy. IMPRESSION: 1. 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 Recommend correlation with lactate levels. No active arterial gastrointestinal bleeding. 2. Faint pericystic fat stranding, could be related to cystitis. Recommend correlation with urinalysis. 3. Left ventricular assist device with no evidence of transplant infection and unchanged pannus along the outflow tract. Dictated by: Obey Davenport MD The radiology attending physician has personally reviewed this study, and had reviewed and/or edited this written report and agrees with it. Electronically signed by: Kevin Bonilla M.D. Anil Holm MD IMG CT PROCEDURES Final Result * POCT creatinine (08/23/2024 5:44 PM CDT) Pathologist [facility] Creatinine POC 1.1 0.8 - 1.3 mg/dL Blood 08/23/2024 5:44 PM CDT 08/23/2024 5:44 PM CDT Dejan Braxton MD LAB POCT ORDERABLES - DEVICE Final Result [facility] [place] [address] * (ABNORMAL) Urinalysis reflex to microscopic and culture Urine (08/23/2024 5:38 PM CDT) Color, ur Yellow Yellow Clarity, ur Cloudy(A) Clear [facility] Specific gravity, ur 1.017 1.003 - 1.030 [facility] pH, urine 7.0 [facility] Comment: Interpretive Data U rine pH is affected by diet, medications, systemic acid-base disturbances, and renal tubular function. pH may affect urinary stone formation. For example, urine pH below 6.0 may help reduce the tendency for calcium phosphate stones and pH greater than 6.0 may reduce the tendency for uric acid stone formation. Source: [place] Current Interpretive Data was last revised on 2017 Protein, ur ql 1+(A) Negative [facility] Glucose, ur ql Negative Negative [facility] Ketones, ur Negative Negative [facility] Bilirubin, ur Negative Negative [facility] Blood, ur Negative Negative [facility] Urobilinogen, ur <2.0 <2.0 mg/dL [facility] Nitrite, ur Negative Negative [facility] Leukocyte esterase, ur Negative Negative [facility] UA reflex comment Reflex to microscopic UA will be performed. [facility] Urine 08/23/2024 5:38 PM CDT 08/23/2024 5:50 PM CDT Anil Holm MD LAB MICROBIOLOGY - GENE RAL ORDERABLES Final Result Performing Organization Address [facility] Co de Phone Number [facility] [place] [address] * (ABNORMAL) Urinalysis, microscopic only (08/23/2024 5:38 PM CDT) WBC, ur 0-5 0 - 5 /HPF RBC, ur 3-5(A) 0 - 2 /HPF [facility] Epithelial cells, squamous, ur 1-5 0 - 5 /HPF [facility] Bacteria, ur 2+(A) [facility] Mucous, ur Present(A) [facility] Amorphous crystals, ur 1+(A) [facility] Granular casts, ur 6-10(A) 0 - 0 /LPF [facility] Culture Reflex Comment Reflex conditions for urine culture (WBC >10) not met. [facility] Urine 08/23/2024 5:38 PM CDT 08/23/2024 5:50 PM CDT Anil Holm MD LAB URINE ORDERABLES Fi nal Result Performing Organization Address [facility]/ZIP Co de Phone Number [facility] Department [place] [place] [address] * ECG 12-LEAD (08/23/2024 4:53 PM CDT) Narrative [facility] - 08/23/2024 4:53 PM CDT Drew Myers MD 08/23/2024 4:55 PM ECG 12 lead Date/Time: 08/23/2024 4:53 PM Performed by: Drew Myers MD Authorized by: Anil Holm MD Quality: Tracing quality: Limited by artifact Rate: ECG rate: 66 Rhythm: Rhythm: sinus rhythm QRS: QRS axis: Left QRS intervals: Wide Conduction: Conduction: abnormal Abnormal conduction: non-specific intraventricular conduction delay ST segments: ST segments: Non-specific T waves: T waves: non-specific Previous ECG: Previous ECG: Compared to current Date of previous EC05/26/2024 Interpretation: Interpretation: No significant change Procedure Note Drew Myers MD - 08/23/2024 4:53 PM CDT Procedure ECG 12 lead Date/Time: 08/23/2024 4:53 PM Performed by: Drew Myers MD Authorized by: Anil Holm MD Quality: Tracing quality: Limited by artifact Rate: ECG rate: 66 Rhythm: Rhythm: sinus rhythm QRS: QRS axis: Left QRS intervals: Wide Conduction: Conduction: abnormal Abnormal conduction: non-specific intraventricular conduction delay ST segments: ST segments: Non-specific T waves: T waves: non-specific Previous ECG: Previous ECG: Compared to current Date of previous EC05/26/2024 Interpretation: Interpretation: No significant change Drew Myers MD 08/23/24 1655 us Anil Holm MD ECG ORDERABLES Final R esult Performing Organization Address [facility] Co de Phone Number [facility] * (ABNORMAL) POCT glucose (08/23/2024 4:50 PM CDT) Glucose, POC 202(H) 70 - 199 mg/dL Blood 08/23/2024 4:50 PM CDT 08/23/2024 4:50 PM CDT us Notinfile Unknown LAB POCT ORDERABLES - DEVICE F inal Result Performing Organization Address [facility] Co de Phone Number [facility] Department [place] [address] * Troponin I high-sensitivity series (baseline, 2hr, 4hr, 6hr) (08/23/2024 4:33 PM CDT) Trop I hs 10 <=35 ng/L Comment: Interpretive Data For further hscTnI resources including the diagnostic algorithm and an aid in interpretation, copy and paste this link: [email or web address].[email or web address]/[email or web address] Current Interpretive Data last revised 2019. Blood 08/23/2024 4:33 PM CDT 08/23/2024 5:06 PM CDT Anil Holm MD LAB BLOOD ORDERABLES Fi nal Result [facility] Department [place] [address] * eGFR (08/23/2024 4:33 PM CDT) eGFR 67 >=60 mL/min/1. 73 m2 Comment: Interpretive Data Reference Interval Normal >/= 90 mL/min/1.73m2 Mildly decreased* 60 - 89 mL/min/1.73m2 Mildly to moderately decreased 45 - 59 mL/min/1.73m2 Moderately to severely decreased 30 - 44 mL/min/1.73m2 Severely decreased 15 - 29 mL/min/1.73m2 Kidney Failure < 15 mL/min/1.73m2 *Relative to young adult level Estimated glomerular filtration rate is determined by the 2020 CKD-EPI equation recommended by the National Kidney Foundation (A Unifying Approach to GFR Estimation: Recommendations of the NKF-ASK Task Force on Reassessing the Inclusion of Race in Diagnosing Kidney Disease, JASN 2020). The CKD-EPI equation should not be used for patients with unstable renal function and has not been validated in children and those over 70. Current interpretive data was last reviewed 2021. Blood 08/23/2024 4:33 PM CDT 08/23/2024 5:06 PM CDT us Anil Holm MD LAB BLOOD ORDERABLES Fi nal Result [facility] [place] [address] * (ABNORMAL) Differential, auto (08/23/2024 4:33 PM CDT) Neutrophil abs 6.1 1.5 - 6.5 K/cumm Imm gran abs 0.1 0.0 - 0.1 K/cumm [facility] Lymphocyte abs 0.8 0.8 - 3.3 K/cumm [facility] Monocyte abs 0.9(H) 0.2 - 0.8 K/cumm [facility] Eosinophil abs 0.5 0.0 - 0.5 K/cumm [facility] Basophil abs 0.1 0.0 - 0.1 K/cumm [facility] Neutrophil pct 72.3 % [facility] Comment: Interpretive Data Percent cell count reference ranges are not reported, since discordance with absolute values may lead to misinterpretation of CBC data. Current Interpretive Data was last revised on 2017. Imm gran pct 0.6 % [facility] Comment: Interpretive Data Percent cell count reference ranges are not reported, since discordance with absolute values may lead to misinterpretation of CBC data. Current Interpretive Data was last revised on 2017. Lymphocyte pct 9.0 % [facility] Comment: Interpretive Data Percent cell count reference ranges are not reported, since discordance with absolute values may lead to misinterpretation of CBC data. Current Interpretive Data was last revised on 2017. Monocyte pct 11.2 % [facility] Comment: Interpretive Data Percent cell count reference ranges are not reported, since discordance with absolute values may lead to misinterpretation of CBC data. Current Interpretive Data was last revised on 2017. Eosinophil pct 6.1 % [facility] Comment: Interpretive Data Percent cell count reference ranges are not reported, since discordance with absolute values may lead to misinterpretation of CBC data. Current Interpretive Data was last revised on 2017. Basophil pct 0.8 % [facility] Comment: Interpretive Data Percent cell count reference ranges are not reported, since discordance with absolute values may lead to misinterpretation of CBC data. Current Interpretive Data was last revised on 2017. Blood 08/23/2024 4:33 PM CDT 08/23/2024 5:06 PM CDT Anil Holm MD LAB BLOOD ORDERABLES Fi nal Result [facility] [place] [address] * (ABNORMAL) CBC with auto differential (08/23/2024 4:33 PM CDT) WBC 8.4 3.8 - 9.9 K/cumm Hgb 11.2(L) 13.0 - 17.5 g/dL [facility] Hct 34.5(L) 38.9 - 50.3 % [facility] Plt 214 150 - 400 K/cumm [facility] MPV 10.7 9.1 - 12.3 fL [facility] RBC 3.81(L) 4.30 - 5.80 M/cumm [facility] MCV 90.6 81.3 - 96.4 fL [facility] MCH 29.4 27.1 - 33.3 pg [facility] MCHC 32.5 32.3 - 35.7 g/dL [facility] RDW CV 13.8 11.1 - 14.9 % [facility] RDW SD 46.1 35.7 - 48.1 fL [facility] NRBC abs 0.00 0.00 - 0.01 K/cumm [facility] Blood 08/23/2024 4:33 PM CDT 08/23/2024 5:06 PM CDT Anil Holm MD LAB BLOOD ORDERABLES Fi nal Result [facility] [place] [address] * (ABNORMAL) aPTT (08/23/2024 4:33 PM CDT) aPTT 81(H) 28 - 38 sec Comment: Interpretive Data Heparin therapeutic range: 66.0 - 100.0 seconds. Range based on correlation with therapeutic heparin activity range of 0.3 - 0.7 Units/mL. Current interpretive data was last revised on 2023. Blood 08/23/2024 4:33 PM CDT 08/23/2024 5:10 PM CDT Anil Holm MD LAB BLOOD ORDERABLES Fi nal Result Performing Organization Address [facility] [place] [address] * (ABNORMAL) Protime-INR (08/23/2024 4:33 PM CDT) PT 24.6(H) 9.7 - 13.0 sec INR 2.24(H) 0.90 - 1.20 [facility] Comment: Interpretive data Oral anticoagulant therapeutic ranges: Venous thromboembolism prophylaxis or treatment: 2.0-3.0 CARDIOLOGY Standard range: 2.0-3.0 High-intensity range: 2.5-3.5 Refer to indication-specific guidelines for appropriate target ranges for prosthetic heart valve replacement. Current interpretive data was last revised on 2019. Blood 08/23/2024 4:33 PM CDT 08/23/2024 5:10 PM CDT Anil Holm MD LAB BLOOD ORDERABLES Fi nal Result Performing Organization Address [facility] Co de Phone Number [facility] [place] [place] [address] * Type and screen (08/23/2024 4:33 PM CDT) [facility] Annetta, indirect Negative Comment:Patient has previous antibody history ABO Rh O Negative [facility] Blood 08/23/2024 4:33 PM CDT 08/23/2024 5:18 PM CDT Narrative [facility] - 08/23/2024 6:16 PM CDT Has the patient had Daratumumab or Isatuximab in the past 6 months?->Unknown Anil Holm MD LAB BLOOD BANK TEST ORD ERABLES Final Result Performing Organization Address [facility] de Phone Number [facility] [place] [address] * (ABNORMAL) Hemoglobin A1c (08/23/2024 4:33 PM CDT) [facility] Hgb A1C 7.1(H) 4.0 - 5.6 % Estimated Average Glucose 157 mg/dL [facility] Comment: The ADA recommends reporting an estimated Average Glucose (eAG) with all Hemoglobin A1c results using the equation derived from a study of 507 normal and diabetic adults. Minority populations were underrepresented and children were not included. (Diabetes Care 2020; 43(S1): S66-S76). The eAG is not equivalent to a fasting glucose. Blood 08/23/2024 4:33 PM CDT 08/23/2024 5:13 PM CDT Suresh Wyman MD PhD LAB BLOOD ORDERABL ES Final Result Performing Organization Address [facility] Co de Phone Number [facility] [place] [place] [place] [address] * (ABNORMAL) Comprehensive metabolic panel (08/23/2024 4:33 PM CDT) [facility] Sodium 138 135 - 145 mmol/L Potassium, pl 4.2 3.3 - 4.9 mmol/L [facility] Chloride 102 97 - 110 mmol/L [facility] CO2 25 22 - 32 mmol/L [facility] Anion gap 11 2 - 15 mmol/L [facility] BUN 13 6 - 25 mg/dL [facility] Creatinine 1.14 0.80 - 1.30 mg/dL [facility] Glucose 216(H) 70 - 199 mg/dL [facility] Comment: Interpretive Data Fasting glucose >/= 126 mg/dl is diagnostic for diabetes. Fasting is defined as no caloric intake for at least 8 hours. Fasting glucose between 100 mg/dl to 125 mg/dl is diagnostic of prediabetes. In a patient with classic symptoms of hyperglycemia or hyperglycemic crisis, a random glucose >/= 200 mg/dl is diagnostic for diabetes. In the absence of unequivocal hyperglycemia, results should be confirmed by repeat testing. The classification and Diagnosis of Diabetes Diabetes Care 2021; 46: S19-S40. Current interpretive data was last revised 2022. Calcium 8.1(L) 8.5 - 10.3 mg/dL [facility] Bilirubin, total 0.5 0.1 - 1.2 mg/dL [facility] Protein, pl 6.3(L) 6.5 - 8.5 g/dL [facility] Albumin 3.1(L) 3.5 - 5.0 g/dL [facility] Alk phos 104 40 - 130 Units/L [facility] ALT 36 7 - 55 Units/L [facility] AST 51(H) 10 - 50 Units/L [facility] Blood 08/23/2024 4:33 PM CDT 08/23/2024 5:06 PM CDT us Aniljeffrey Holm MD LAB BLOOD ORDERABLES Fi nal Result [facility] [place] [address] * (ABNORMAL) CBC with auto differential (08/20/2024 9:34 AM CDT) SCRIBED WBC 7.0 3.8 - 10.8 k/cumm [facility] SCRIBED Hemoglobin 11.1(A) 13.2 - 17.1 g/dL [facility] SCRIBED Hematocrit 34.6(A) 38.5 - 50.0 % [facility] SCRIBED Platelets 213 140 - 400 k/cumm [facility] Blood 08/20/2024 9:34 AM CDT Suresh Verma MD LAB BLOOD ORDERABLES Fin al Result [facility] * (ABNORMAL) Protime-INR (08/20/2024 9:34 AM CDT) SCRIBED PT 28.7(A) 9.0 - 11.5 sec [facility] SCRIBED INR 2.9 2.0 - 3.0 sec [facility] Blood 08/20/2024 9:34 AM CDT Suresh Verma MD LAB BLOOD ORDERABLES Fin al Result Performing Organization Address [facility] Co de Phone Number [facility] * (ABNORMAL) Comprehensive metabolic panel (08/20/2024 9:34 AM CDT) SCRIBED Sodium 141 135 - 146 mmol/L [facility] SCRIBED Potassium 3.5 3.5 - 5.3 mmol/L [facility] Chloride 105 96 - 110 mmol/L [facility] S[facility] Carbon Dioxide 28 20 - 32 mmol/L [facility] SCRIBED Urea Nitrogen (BUN) 17 7 - 25 mg/dl [facility] S[facility]ED Creatinine 1.25 0.70 - 1.26 mg/dl [facility] S[facility] Glucose 130(A) 65 - 99 mg/dl [facility] Calcium 8.0(A) 8.6 - 10.3 mg/dl [facility] S[facility]ED Bilirubin 0.5 0.2 - 1.2 mg/dl [facility] SCRIBED Plasma Protein 5.5(A) 6.1 - 8.1 g/dl [facility] S[facility]IBED Albumin 1.5 1.0 - 2.5 g/dl [facility] SCRIBED Alkaline Phosphatase 94 35 - 144 Units/L [facility] SCRIBED Alanine Transaminase (ALT) 30 9 - 46 Units/L [facility] SCRIBED Aspartate Transaminase (AST) 33 10 - 35 Units/L [facility] SCRIBED eGFR in NonAfrican Swiss 60 >=60 [facility] Blood 08/20/2024 9:34 AM CDT Suresh Verma MD LAB BLOOD ORDERABLES Fin al Result [facility] * (ABNORMAL) CBC with auto differential (08/20/2024) SCRIBED WBC 7 3.8 - 10.8 k/cumm [facility] SCRIB[facility] Platelets 213 140 - 400 k/cumm [facility] Neutrophils Abs 5,005 1,500 - 7,800 k/cumm [facility] Eosinophils Abs 518(A) 15 - 500 k/cumm [facility] Blood 08/20/2024 Americo Mcneil MD LAB BLOOD ORDERABLES Fi nal Result Performing Organization Address [facility]/ZIP Co de Phone Number [facility] * (ABNORMAL) Protime-INR (08/20/2024) INR 2.90(A) 0.90 - 1.10 Blood Crys Avila MD LAB BLOOD ORDERABLES Maia l Result * Comprehensive metabolic panel (08/20/2024) SCRIBED Potassium 3.5 3.5 - 5.3 mmol/L [facility] Creatinine 1.25 0.7 - 1.25 mg/dl [facility] SCR[facility] Alanine Transaminase (ALT) 30 9 - 46 Units/L [facility] S[facility] Aspartate Transaminase (AST) 33 10 - 35 Units/L [facility] Blood 08/20/2024 Americo Mcneil MD LAB BLOOD ORDERABLES Fi nal Result [facility] * (ABNORMAL) Protime-INR (08/14/2024) INR 3.10(A) 0.90 - 1.10 Blood Crys Avila MD LAB BLOOD ORDERABLES Maia l Result * (ABNORMAL) CBC with auto differential (08/13/2024 1:17 PM CDT) Pathologist [facility] SCRIBED WBC 6.6 3.8 - 10.8 k/cumm [facility] SCRIBED Hemoglobin 11.0(A) 13.2 - 17.1 g/dL [facility] SCRIBED Hematocrit 33.8(A) 38.5 - 50.0 % [facility] SCRIBED Platelets 240 140 - 400 k/cumm [facility] Blood 08/13/2024 1:17 PM CDT Result [facility] Suresh Verma MD LAB BLOOD ORDERABLES Fin al Result Performing Organization Address [facility] de Phone Number [facility] * (ABNORMAL) Protime-INR (08/13/2024 1:17 PM CDT) Pathologist [facility] SCRIBED PT 31.4(A) 9.0 - 11.5 sec [facility] SCRIBED INR 3.1(A) 2.0 - 3.0 sec [facility] Blood 08/13/2024 1:17 PM CDT Result [facility] Suresh Verma MD LAB BLOOD ORDERABLES Fin al Result Performing Organization Address [facility] Co de Phone Number [facility] * (ABNORMAL) Comprehensive metabolic panel (08/13/2024 1:17 PM CDT) SCRIBED Sodium 139 135 - 146 mmol/L [facility] SCRIBED Potassium 3.7 3.5 - 5.3 mmol/L [facility] SCRIBED Chloride 105 98 - 110 mmol/L [facility] SCRIBED Carbon Dioxide 25 20 - 32 mmol/L [facility] SCRIBED Urea Nitrogen (BUN) 15 7 - 25 mg/dl [facility] SCRIBED Creatinine 1.15 0.70 - 1.28 mg/dl [facility] SCRIBED Glucose 168(A) 65 - 99 mg/dl [facility] SCRIBED Calcium 7.6(A) 8.6 - 10.3 mg/dl [facility] SCRIBED Bilirubin 0.5 0.2 - 1.2 mg/dl [facility] SCRIBED Plasma Protein 5.4(A) 6.1 - 8.1 g/dl [facility] SCRIBED Albumin 3.0(A) 3.6 - 5.1 g/dl [facility] SCRIBED Alkaline Phosphatase 90 35 - 144 Units/L [facility] SCRIBED Alanine Transaminase (ALT) 29 9 - 46 Units/L [facility] SCRIBED Aspartate Transaminase (AST) 40(A) 10 - 35 Units/L [facility] SCRIBED eGFR in NonAfrican Swiss 66 >=60 [facility] Blood 08/13/2024 1:17 PM CDT us Suresh Verma MD LAB BLOOD ORDERABLES Fin al Result [facility] * (ABNORMAL) CBC with auto differential (08/13/2024) SCRIBED WBC 6.6 3.8 - 10.8 k/cumm [facility] SCRIBED Platelets 240 140 - 400 k/cumm [facility] SCRIBED Neutrophils Abs 4,554 1,500 - 7,800 k/cumm [facility] SCRIBED Eosinophils Abs 581(A) 15 - 500 k/cumm [facility] Blood 08/13/2024 us Americo Mcneil MD LAB BLOOD ORDERABLES Ed ited Result - Final [facility] * (ABNORMAL) Comprehensive metabolic panel (08/13/2024) SCRIBED Potassium 3.7 3.5 - 5.3 mmol/L [facility] SCRIBED Creatinine 1.15 0.7 - 1.28 mg/dl [facility] SCRIBED Alanine Transaminase (ALT) 29 9 - 46 Units/L [facility] SCRIBED Aspartate Transaminase (AST) 40(A) 10 - 35 Units/L [facility] Blood 08/13/2024 us Americo Mcneil MD LAB BLOOD ORDERABLES Fi nal Result [facility] * (ABNORMAL) Protime-INR (08/07/2024) INR 2.70(A) 0.90 - 1.10 Blood us Crys Provider LAB BLOOD ORDERABLES Maia l Result * (ABNORMAL) CBC with auto differential (08/06/2024 11:27 AM CDT) SCRIBED WBC 6.0 3.8 - 10.8 k/cumm [facility] SCRIBED Hemoglobin 10.9(A) 13.2 - 17.1 g/dL [facility] SCRIBED Hematocrit 33.4(A) 38.5 - 50.0 % [facility] SCRIBED Platelets 208 140 - 400 k/cumm [facility] Blood 08/06/2024 11:2 7 AM CDT us Suresh Verma MD LAB BLOOD ORDERABLES Fin al Result [facility] * (ABNORMAL) Protime-INR (08/06/2024 11:27 AM CDT) SCRIBED PT 27.3(A) 9.0 - 11.5 sec [facility] SCRIBED INR 2.7 2.0 - 3.0 sec [facility] Blood 08/06/2024 11:2 7 AM CDT us Suresh Verma MD LAB BLOOD ORDERABLES Fin al Result [facility] * (ABNORMAL) Comprehensive metabolic panel (08/06/2024 11:27 AM CDT) SCRIBED Sodium 141 135 - 146 mmol/L [facility] SCRIBED Potassium 3.5 3.5 - 5.3 mmol/L [facility] SCRIBED Chloride 106 98 - 110 mmol/L [facility] SCRIBED Carbon Dioxide 24 20 - 32 mmol/L [facility] SCRIBED Urea Nitrogen (BUN) 26(A) 7 - 25 mg/dl [facility] SCRIBED Creatinine 1.46(A) 0.70 - 1.28 mg/dl [facility] SCRIBED Glucose 223(A) 65 - 99 mg/dl [facility] SCRIBED Calcium 7.9(A) 8.6 - 10.3 mg/dl [facility] SCRIBED Bilirubin 0.5 0.2 - 1.2 mg/dl [facility] SCRIBED Plasma Protein 5.6(A) 6.1 - 8.1 g/dl [facility] SCRIBED Albumin 3.1(A) 3.6 - 5.1 g/dl [facility] SCRIBED Alkaline Phosphatase 111 65 - 144 Units/L [facility] SCRIBED Alanine Transaminase (ALT) 36 9 - 46 Units/L [facility] SCRIBED Aspartate Transaminase (AST) 38(A) 10 - 35 Units/L [facility] SCRIBED eGFR in NonAfrican Swiss 50 >=60 [facility] Blood 08/06/2024 11:2 7 AM CDT us Suresh Verma MD LAB BLOOD ORDERABLES Fin al Result [facility] * CBC with auto differential (08/06/2024) SCRIBED WBC 6.0 3.8 - 10.8 k/cumm [facility] SCRIBED Platelets 208 140 - 400 k/cumm [facility] SCRIBED Neutrophils Abs 3,978 1,500 - 7,800 k/cumm [facility] SCRIBED Eosinophils Abs 600 15 - 600 k/cumm [facility] Blood 08/06/2024 us Crys Avila MD LAB BLOOD ORDERABLES Maia l Result [facility] * (ABNORMAL) Comprehensive metabolic panel (08/06/2024) SCRIBED Potassium 3.5 3.5 - 5.3 mmol/L [facility] SCRIBED Creatinine 1.48(A) 0.7 - 1.28 mg/dl [facility] SCRIBED Alanine Transaminase (ALT) 36 9 - 46 Units/L [facility] SCRIBED Aspartate Transaminase (AST) 38(A) 10 - 35 Units/L [facility] Blood 08/06/2024 us Historical Provider LAB BLOOD ORDERABLES Edit ed Result - Final [facility] * Flexible Sigmoidoscopy (05/29/2024 9:01 AM PROCESSING SPEC) Anatomical Region Laterality Modality Other Narrative Procedure Note Robles Murphy MD - 05/29/2024 9:01 AM [facility] Patient Name: Cindy Severino Procedure Date: 05/29/2024 9:01 AM Date of : 1950 Admit Type: Inpatient Age: 73 Gender: Male Attending MD: Marquise Latham Room: [facility] ENDOSCOPY Note Status: Finalized Procedure: Flexible Sigmoidoscopy Indications: Rectal hemorrhage, Abnormal CT of the GI tract Referring MD: Suresh Verma M.D. Providers: Robles Murphy M.D., Royal Burgos M.D. Medicines: Monitored Anesthesia Care Complications: No immediate complications. Estimated Blood Loss: Estimated blood loss was minimal. Procedure: The benefits, risks, and alternatives to theprocedure and sedation were discussed and informed consentwas obtained. The [id number] endoscope was introduced through the anus and advanced to the sigmoid colon. The flexible sigmoidoscopy wassomewhat difficult due to inadequate bowel prep. The qualityof the bowel preparation was inadequate. Findings: The perianal and digital rectal examinations were normal. A moderate amount of semi-solid stool was found in the rectum, in the recto-sigmoid colon and in the sigmoid colon, interfering with visualization. An extensive area of moderately ulcerated and pseudomembrane-covered mucosa with exudate distributed in the longitudinal pattern was foundin the recto-sigmoid colon and in the sigmoid colon. Endoscopic findingis compatible with colonic ischemia. Biopsies were taken with a cold forceps for histology. The exam was otherwise without abnormality. Retroflexion wasperformed. However, unable to completely visualized due to stool burden. Impression: - Preparation of the colon was inadequate. - Stool in the rectum, in the recto-sigmoid colonand in the sigmoid colon. - Ulcerated and pseudomembrane-covered mucosa inthe recto-sigmoid colon and in the sigmoid colon.Biopsied. - The examination was otherwise normal. Recommendation: - [facility] - Await pathology results. - Resume Coumadin (warfarin) at prior dose today. - Suspect colonic ischemia is the cause of rectal bleeding. Attending Participation: I was present for the wolff portions of this procedure and immediately available for all non-wolff portions of the procedure. Electronically signed by Robles Murphy MD Robles Murphy M.D. 05/29/2024 9:28:12 AM Number of Addenda: 0 Note Initiated On: 05/29/2024 9:01 AM Robles Murphy MD ENDOSCOPY [facility]Y ES Final Result * (ABNORMAL) Lipid panel (05/26/2024 5:30 PM PROCESSING SPEC) Cholesterol 180 30 - 199 mg/dL Comment: Interpretive Data Ages < or = 19 years Acceptable: <170 mg/dL Borderline high: 170-199 mg/dL High: >or= 200 mg/dL Ages > or = 20 years Desirable: <200 mg/dL Borderline high: 200-239 mg/dL High: >or= 240 mg/dL Literature References: 1. Expert Panel on Integrated Guidelines for Cardiovascular Health and Risk Reduction in Children and Adolescents. Pediatrics 2011;128:S213 2. NCEP Expert Panel. Circulation 2004;110:227 Current Interpretive Data was last revised on 2018. Triglycerides 161(H) <=149 mg/dL [facility] Comment: Interpretive Data Ages < or = 9 years Acceptable: <75 mg/dL Borderline high: 75-99 mg/dL High: >or= 100 mg/dL Ages 10 to 20 years Acceptable: <90 mg/dL Borderline high: 90-129 mg/dL High: >or= 130 mg/dL Ages > or = 20 years Desirable: <150 mg/dL Borderline high: 150-199 mg/dL High: 200-499 mg/dL Very high: >or= 499 mg/dL Literature References: 1. Expert Panel on Integrated Guidelines for Cardiovascular Health and Risk Reduction in Children and Adolescents. Pediatrics 2011;128:S213 2. NCEP Expert Panel. Circulation 2004;110:227 Current Interpretive Data was last revised on 2018. HDL 31(L) >=40 mg/dL [facility] Comment: Interpretive Data Ages < or = 19 years Acceptable: >45 mg/dL Borderline low: 40-45 mg/dL Low: <40 mg/dL Ages > or = 20 years Desirable: >or= 60 mg/dL Low: <40 mg/dL Literature References: 1. Expert Panel on Integrated Guidelines for Cardiovascular Health and Risk Reduction in Children and Adolescents. Pediatrics 2011;128:S213 2. NCEP Expert Panel. Circulation 2004;110:227 Current Interpretive Data was last revised on 2018. LDL, calculated 120 <=129 mg/dL [facility] Comment: Interpretive Data Ages < or = 19 years Acceptable: <110 mg/dL Borderline high: 110-129 mg/dL High: >or= 130 mg/dL Ages > or = 20 years Optimal: <100 mg/dL Near optimal: 100-129 mg/dL Borderline high: 130-159 mg/dL High: >160 mg/dL Calculated using the Golden LDL-C estimating equation. This equation was implemented on 2024. Prior to this date LDL-C was estimated using the Friedewald equation. Literature References: 1. Expert Panel on Integrated Guidelines for Cardiovascular Health and Risk Reduction in Children and Adolescents. Pediatrics 2011;128:S213 2. NCEP Expert Panel. Circulation 2004;110:227 3. Golden Huitron et al. MARCO ANTONIO Cardiol. 2019September 27;5(5):540-548. doi: 10.1001/jamacardio.2020.0013 Current Interpretive Data was last revised on 2024. Non-HDL Cholesterol 149 mg/dL [facility] Comment: Interpretive Data Ages < or = 19 years Acceptable: <120 mg/dL Borderline high: 120-144 mg/dL High: >145 mg/dL Ages > or = 20 years When triglycerides are >200 mg/dL, Non-HDL cholesterol is a secondary target of therapy with treatment goals that are 30 mg/dL greater than the LDL cholesterol target. Literature References: 1. Expert Panel on Integrated Guidelines for Cardiovascular Health and Risk Reduction in Children and Adolescents. Pediatrics 2011;128:S213 2. NCEP Expert Panel. Circulation 2004;110:227 Current Interpretive Data was last revised on 2018. Chol/HDL ratio 6 [facility] Blood 05/26/2024 5:3 0 PM PROCESSING SPEC 05/26/2024 5:47 PM PROCESSING SPEC Narrative [facility] - 05/27/2024 1:24 AM PROCESSING SPEC This lipid panel was automatically ordered due to a significant change in Troponin. The dietary status of the patient at the collection time should be correlated with the lipid results. us Abel Mak MD LAB BLOOD ORDERABLES Maia l Result [facility] Department [place] [address] * Hepatitis C (HCV) RNA PCR, quantitative Blood (04/17/2024 6:26 PM PROCESSING SPEC) HCV RNA result Not Detected [facility] Comment: The quantifiable range of this assay is 15 IU/mL to 100,000,000 IU/mL (1.18 log IU/mL to 8.00 log IU/mL). Testing was performed by the ILEANA 6800 HCV Test ([employer] Testing performed at [facility] Current Interpretive Data was last revised on 2021 Blood 04/17/2024 6:26 PM PROCESSING SPEC 04/17/2024 6:46 PM PROCESSING SPEC Olinda Harrell MD LAB MICROBIOLOGY - [facility] ORDERABLES Final Result Performing Organization Address City/State/[facility] Co de Phone Number [facility] [place] [address] [facility] * COLONOSCOPY REPORT (10/16/2013) Anatomical Region Laterality Modality Other Narrative 10/16/2013 Ordered by an unspecified provider. 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 Expl anation ADVANCE DIRECTIVE 12/07/2012 12:00 AM EVIE LAMBERT WILL ADVANCE DIRECTIVE 12/07/2012 12:00 AM JIMENA R OF DISEASE AND INSECT CONTROL BOSS FINANCIAL/MEDICAL * Full Code (Latest Code Status on File) Date Activated Date Inactivated Comments 08/24/2024 1:05 AM 08/31/2024 8:37 PM * Full Code Date Activated Date Inactivated Comments 05/29/2024 7:52 AM 06/05/2024 6:28 PM * Full Code Date Activated Date Inactivated Comments 05/27/2024 2:21 AM 05/29/2024 7:52 AM * Full Code Date Activated Date Inactivated Comments 04/18/2024 1:50 AM 04/20/2024 9:15 PM * Full Code Date Activated Date Inactivated Comments 03/14/2023 3:02 PM 04/02/2023 5:36 PM Care Teams Aerial Photograph Interpreter Relationship Specialty Start Date End Date Tika Araujo MD PCP - General Nurse Practitioner 03/27/20 Americo Mcneil MD [phone] [place] [address] PCP - Home Infusion Attending Infectious Diseases 10/15/24 Suresh Verma MD Sales Agent Trading Stamps Transplant 09/16/18 Pao Allen, RN VAD Coordinator Transplant 03/20/19 Emmy Alicea Primary Parole Hearing Officer Transplant 08/14/24 Korey Warren, [facility] Pharmacist Pharmacy 10/23/24
--- OUTSIDE RECORDS SUMMARY | 2024-11-06 17:21 | XMS_ITS | Clinical Summary ---
Author Organization [facility] Address [address] [place] [address] Phone Care Team Providers Care Equipment Service Associate Name Role Phone Collin John MD Primary Care Provider [phone] Allergies Active Allergy Reactions Criticality Noted Date Comments Amoxicillin Hives 08/15/2019 Reaction: HIVES, , Reaction: HIVES, Levofloxacin Hives 08/15/2019 Reaction: HIVES, , Reaction: HIVES, Medications isosorbide mononitrate (IMDUR) 120 MG 24 hr tablet 1qd 4 Active Additional Information Patient taking differently: 120 mgOralDaily, Reported on 08/15/2019 rosuvastatin (CRESTOR) 20 MG tablet 1qd 10mg 0 4 Active acetaminophen (TYLENOL) 325 MG tablet 2 tabs every 6 hours as prn 5 Active insulin glargine (LANTUS) 100 UNIT/ML injection 30 units qhs 0 4 Active PARoxetine (PAXIL) 20 MG tablet 1qd 4 Active warfarin (COUMADIN) 5 MG tablet 4mg- Tues, wed, fri and sun, 3mg- mon, thurs, and sat 0 7 Active insulin lispro (HumaLOG KWIKPEN) 100 UNIT/ML injection prn 0 4 Active allopurinol (ZYLOPRIM) 100 MG tablet Take 100 mg by mouth 1 (one) time each day Active torsemide (DEMADEX) 20 MG tablet Take 20 mg by mouth 1 (one) time each day if needed Active losartan (COZAAR) 100 MG tablet Take 100 mg by mouth 1 (one) time each day Active aspirin 325 MG tablet Take 325 mg by mouth 1 (one) time each day Active carvedilol (COREG) 25 MG tablet Take 25 mg by mouth 2 (two) times a day with meals Active levothyroxine (SYNTHROID, LEVOTHROID) 75 MCG tablet Take 75 mcg by mouth 1 (one) time each day Active ustekinumab (Stelara) injection Inject 90 mg under the skin every 3 (three) months Active pantoprazole (PROTONIX) 40 MG EC tablet Take 40 mg by mouth 1 (one) time each day before breakfast Active Active Problems Problem Noted Date Diagnosed Date Hypoxemia 08/15/2014 Overview (08/12/2018): Converted unresolved ICD9, potential mismatch. 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 Hypothyroidism 02/04/2014 Type 2 diabetes mellitus without complication Peripheral vascular disease 02/04/2014 Overview (08/12/2018): Converted unresolved ICD9, potential mismatch. Insomnia 02/04/2014 Immunizations Immunization Administration Dates Next Due Influenza (IM) Preservative Free 016,02/19/2011,05/15/2010,03/16 Influenza Split High Dose Pr eservative Free IM 04/10/2018 Influenza, Unspecified 03/30/2016,02/23/2015 Pneumococcal Polysaccharide 03/16/2007 Zoster Recombinant 08/25/2018,08/12/2017 Social History Tobacco Use Types Packs/Day Years Used Date Smoking Tobacco: Never Alcohol Use Standard Drinks/Week Comments Yes 0 (1 standard drink = 0.6 oz pur e alcohol) Sex and Gender Information Value Date Recorded Sex Assigned at Not on file Legal Sex Male 9:52 AM MST Gender Identity Not on file Sexual Orientation Not on file Last Filed Vital Signs Vital Sign Reading Time Taken Comments Blood Pressure 138/80 08/15/2019 11:12 AM CDT Pulse 64 04/11/2018 12:01 AM CALENDER FEEDER Temperature - - Respiratory Rate - - Oxygen Saturation - - Inhaled Oxygen Concentration - - Weight 112 kg (246 lb) 08/15/2019 11:12 AM CDT Height 177.8 cm (5' 10) 04/11/2018 12:01 AM CALENDER FEEDER Body Mass Index 35.3 04/11/2018 12:01 AM CALENDER FEEDER Plan of Treatment Health Maintenance Due Date Last Done Comments Pneumococcal PPSV23/PCV13 65 + Years / Low and Medium Risk (2 of 4 - PCV) 03/16/2008 03/16/2007 Influenza Vaccine (Season Ended) 2025 04/10/2018, 04/05/2016, 03/30/2016, Additional history exists Insurance AETNA Care Teams Equipment Service Associate Relationship Specialty Start Date End Date Collin John MD PCP - General Endocrinology 08/15/19
--- OUTSIDE RECORDS SUMMARY | 2024-11-06 17:21 | XMS_ITS | Encounter Summary ---
Author Organization [facility] Address [address] [place] [address] Phone Care Team Providers Care It Security Project Manager Name Role Phone Collin John MD Primary Care Provider [phone] Prasanna Newton DO Primary Care Provider [phone] Marietta Carroll RN Unavailable Jacque Suresh Miller MD Unavailable [phone] Pao Allen RN Unavailable [phone] Tika Araujo MD Primary Care Provider [phone] Tika Araujo MD Primary Care Provider [phone] Emmy Alicea Unavailable Unavailable Americo Mcneil MD Unavailable [phone] Korey Warren [facility] Unavailable Unavail able Encounter Details Date Type Department Care Team (Late st Contact Info) Description 01/15/2015 Orders Only [facility] ProviderCrys MD [address] [place] [address] Social History Tobacco Use Types Packs/Day Years Used Date Smoking Tobacco: Never Alcohol Use Standard Drinks/Week Comments No 0 (1 standard drink = 0.6 oz pur e alcohol) Sex and Gender Information Value Date Recorded Sex Assigned at Not on file Legal Sex Male 12:11 AM NURSERY RN Gender Identity Not on file Sexual Orientation Not on file documented as of this encounter Plan of Treatment Not on file documented as of this encounter Procedures Procedure Name Priority Date/Time Associated Diagnosis Comments CARDIOLOGY REPORT 01/15/2015 CARDIOLOGY REPORT 01/15/2015 documented in this encounter Results * CARDIOLOGY REPORT (01/15/2015) Anatomical Region Laterality Modality Other Narrative 01/15/2015 Ordered by an unspecified provider. us Historical Provider MD [facility] CARDIAC SERVICES PROCE DURES Final Result * CARDIOLOGY REPORT (01/15/2015) Anatomical Region Laterality Modality Other Narrative 01/15/2015 Ordered by an unspecified provider. us Historical Provider CV CARDIAC SERVICES PROCE DURES Final Result documented in this encounter Visit [...] documented as of this encounter Care Teams It Security Project Manager Relationship Specialty Start Date End Date Collin John MD [address] [address] PCP - General 07/13/16 02/24/20 Prasanna Newton DO [address] [address] PCP - General 06/07/06 07/12/16 Tika Araujo MD PCP - General Nurse Practitioner 03/27/20 Tika Araujo MD PCP - General 02/25/20 03/26/20 Americo Mcneil MD [address] [facility] [phone] [place] [address] PCP - Home Infusion Attending Infectious Diseases 10/15/24 Marietta Carroll, S[place]ET Registered Nurse Natural Resources Specialist 10/31/17 03/20/19 Suresh Verma MD Network Relations Consultant Transplant 09/16/18 Pao Allen, RN VAD Coordinator Transplant 03/20/19 Emmy Alicea Primary Saute Chef Transplant 08/14/24 Korey Warren [facility] Pharmacist Pharmacy 10/23/24 documented as of this encounter
--- OUTSIDE RECORDS SUMMARY | 2024-11-06 17:21 | XMS_ITS | Encounter Summary ---
Author Organization [facility] Healthcare Address [address] [place] [address] Care Team Providers Care Pile Driver Engineer Name Role Phone Suresh Verma MD Unavailable [phone] Pao Allen RN Unavailable [phone] Tika Araujo MD Primary Care Provider [phone] Emmy Alicea Unavailable Unavailable Americo Mcneil MD Unavailable [phone] Korey Warren [facility] Unavailable Unavail able Encounter Details Date Type Department Care Team (Late st Contact Info) Description 09/28/2024 Telephone [facility] Home Care Services [address] [place] [address] Korey Warren [facility] Social History Tobacco Use Types Packs/Day Years Used Date Smoking Tobacco: Never Passive Smoke Exposure: Never Smokeless Tobacco: Never Alcohol Use Standard Drinks/Week Comments No 0 (1 standard drink = 0.6 oz pur e alcohol) [facility] Utilities Answer Date Recorded In the past 12 months has e electric, gas, oil, or water company threatened to shut off services in your [...] often do you attend chur ch or judaism services? More than 4 times per year 08/25/2024 Do you belong to any clubs o r organizations such as confucianist groups, unions, fraternal or athletic groups, or [...] mortgage or rent on time? Patient refused 10/25/20 23 In the last 12 months, how many places have you lived? 0 03/23/2023 In the last 12 months, was t here a time when you did not have a steady place to sleep or slept in a penitentiary (including now)? Patient refused 03/23/2023 Housing Stability [...] any time in the past 12 m [facility], were you homeless or living in a penitentiary (including now)? No 08/25/2024 Personal Safety Answer Date Recorded Have you ever been in or are you currently in a harmful physical or emotional relationship or is someone making you feel afraid or unsafe? Denies 08/23/2024 Sex and Gender Information Value Date Recorded Sex Assigned at Not on file Legal Sex Male 12:11 AM PUBLIC POLICY PROFESSOR Gender Identity Not on file Sexual Orientation [...] documented as of this encounter Care Teams Pile Driver Engineer Relationship Specialty Start Date End Date Tika Araujo MD PCP - General Nurse Practitioner 03/27/20 Americo Mcneil MD [phone] [place] [address] PCP - Home Infusion Attending Infectious Diseases 10/15/24 Suresh Verma MD Photo Retoucher Transplant 09/16/18 Pao Allen, RN VAD Coordinator Transplant 03/20/19 Emmy Alicea Primary Watch Train Assembler Transplant 08/14/24 Korey Warren, [facility] Pharmacist Pharmacy 10/23/24 documented as of this encounter
--- OUTSIDE RECORDS SUMMARY | 2024-11-06 17:21 | XMS_ITS | Encounter Summary ---
Author Organization [facility] Address [address] [place] [address] Phone Care Team Providers Care Lozenge Maker Helper Name Role Phone Suresh Verma MD Unavailable [phone] Pao Allen RN Unavailable [phone] Tika Araujo MD Primary Care Provider [phone] Emmy Alicea Unavailable Unavailable Americo Mcneil MD Unavailable [phone] Korey Warren [facility] Unavailable Unavail able Encounter Details Date Type Department Care Team (Late st Contact Info) Description 09/28/2024 Results Follow-Up [facility] Dermatology [address] [place] [address] [address] [place] [address] Tin Pinedo PA [address] [place] [address] Surgical pathology Social History Tobacco Use Types Packs/Day Years Used Date Smoking Tobacco: Never Passive Smoke Exposure: Never Smokeless Tobacco: Never Alcohol Use Standard Drinks/Week Comments No 0 (1 standard drink = 0.6 oz pur e alcohol) [facility] Utilities Answer Date Recorded In the past 12 months has th e electric, gas, oil, or water company [...] often do you attend chur ch or protestant services? More than 4 times per year 08/25/2024 Do you belong to any clubs o r organizations such as zoroastrianism groups, unions, fraternal or athletic groups, or [...] place to sleep or slept in a fdc (including now)? Patient refused 03/23/2023 Housing Stability [...] any time in the past 12 m [facility], were you homeless or living in a fdc (including now)? No 08/25/2024 Personal Safety Answer Date Recorded Have you ever been in or are you currently in a harmful physical or emotional relationship or is someone making you feel afraid or unsafe? Denies 08/23/2024 Sex and Gender Information Value Date Recorded Sex Assigned at Not on file Legal Sex Male 12:11 AM CAR TESTER Gender Identity Not on file Sexual Orientation [...] documented as of this encounter Care Teams Lozenge Maker Helper Relationship Specialty Start Date End Date Tika Araujo MD PCP - General Nurse Practitioner 03/27/20 Americo Mcneil MD [id number] [place] [address] PCP - Home Infusion Attending Infectious Diseases 10/15/24 Suresh Verma MD Telephone Plant Power Operator Transplant 09/16/18 Pao Allen, RN VAD Coordinator Transplant 03/20/19 Emmy Alicea Primary Nip Wrapper Transplant 08/14/24 Korey Warren, [facility] Pharmacist Pharmacy 10/23/24 documented as of this encounter
--- OUTSIDE RECORDS SUMMARY | 2024-11-06 17:21 | XMS_ITS | Encounter Summary ---
Author Organization [facility] Healthcare Address [address] [place] [address] Care Team Providers Care Film Editor Supervisor Name Role Phone Suresh Verma MD Unavailable [phone] Pao Allen RN Unavailable [phone] Tika Araujo MD Primary Care Provider [phone] Emmy Alicea Unavailable Unavailable Americo Mcneil MD Unavailable [phone] Korey Warren [facility] Unavailable Unavail able Encounter Details Date Type Department Care Team (Late st Contact Info) Description 11/06/2024 Anticoagulation Tele phone Call [facility] Transplant Heart [address] [facility] [address] [place] [address] Pao Allen, RN Social History Tobacco Use Types Packs/Day Years Used Date Smoking Tobacco: Never Passive Smoke Exposure: Never Smokeless Tobacco: Never Alcohol Use Standard Drinks/Week Comments No 0 (1 standard drink = 0.6 oz pur e alcohol) [facility] Utilities Answer Date Recorded In [...] often do you attend chur ch or congregational services? More than 4 times per year 08/25/2024 Do you belong to any clubs o r organizations such as religion groups, unions, fraternal or athletic groups, or [...] place to sleep or slept in a halfway (including now)? Patient refused 03/23/2023 Housing Stability [...] any time in the past 12 m [facility], were you homeless or living in a halfway (including now)? No 08/25/2024 Personal Safety Answer Date Recorded Have you ever been in or are you currently in a harmful physical or emotional relationship or is someone making you feel afraid or unsafe? Denies 08/23/2024 Sex and Gender Information Value Date Recorded Sex Assigned at Not on file Legal Sex Male 12:11 AM EMPLOYMENT EVALUATOR/CASE MANAGER Gender Identity Not on file Sexual Orientation Not on file documented as of this encounter Progress Notes * Pao Allen RN - 11/06/2024 1:37 PM CDT Received lab results from 11/05- cbc, cmp wnl for pt; INR 1.6. Per , pt instructed to increase coumadin to 4 mg tues/thurs and 2 mg ROW and will recheck labs next week. Pt verbalized understanding. States leaving to drive (son driving) to [place] 11/24-12/04 to visit family. States 2 weeks ago had some memory loss-asked if he went to get checked out to which he stated no. Asked for him to call PCP for an appt definitely before he goes on vacation and/or HCT done as well. 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
--- OUTSIDE RECORDS SUMMARY | 2024-11-06 17:21 | XMS_ITS | Encounter Summary ---
Author Organization [facility] Healthcare Address [address] [place] [address] Care Team Providers Care Health Information Systems Technician Name Role Phone Suresh Verma MD Unavailable Pao Allen RN Unavailable [phone] Tika Araujo MD Primary Care Provider [phone] Emmy Alicea Unavailable Unavailable Americo Mcneil MD Unavailable [phone] Korey Warren [facility] Unavailable Unavail able Encounter Details Date Type Department Care Team (Late st Contact Info) Description 10/23/2024 Home Infusion [facility] Home Infusion Therapy [address] [place] [address] Edwina Robb [facility] Infection and inflammatory reaction due to cardiac device, implant, and graft, sequela (Primary Dx); Bacterial intestinal infection; Presence of heart assist device (HCC) Social History Tobacco Use Types Packs/Day Years Used Date Smoking Tobacco: Never Passive Smoke Exposure: Never Smokeless Tobacco: Never Alcohol Use Standard Drinks/Week Comments No 0 (1 standard drink = 0.6 oz pur e alcohol) [facility] Utilities Answer Date Recorded In the past 12 months has [employer] electric, gas, oil, or water company threatened [...] often do you attend chur ch or moravian services? More than 4 times per year 08/25/2024 Do you belong to any clubs o r organizations such as jewish groups, unions, fraternal or athletic groups, or [...] place to sleep or slept in a long-term (including now)? Patient refused 03/23/2023 Housing Stability [...] any time in the past 12 m [facility], were you homeless or living in a long-term (including now)? No 08/25/2024 Personal Safety Answer Date Recorded Have you ever been in or are you currently in a harmful physical or emotional relationship or is someone making you feel afraid or unsafe? Denies 08/23/2024 Sex and Gender Information Value Date Recorded Sex Assigned at Not on file Legal Sex Male 12:11 AM BOLOGNA LACER Gender Identity Not on file Sexual Orientation Not on file documented as of this encounter Last Filed Vital Signs Vital Sign Reading Time Taken Comments Blood Pressure - - Pulse - - Temperature - - Respiratory Rate - - Oxygen Saturation - - Inhaled Oxygen Concentration - - Weight 103.4 kg (227 lb 15.3 oz) 10/23/2024 9:33 AM CDT Height 177.8 cm (5' 10) 10/23/2024 9:33 AM CDT Body Mass Index 32.71 10/23/2024 9:33 AM CDT documented in this encounter Ordered Prescriptions Prescription Sig Dispense Quantity Refills Last Filled Start Date End Date dextrose 5% solutionIndication s:Bacterial intestinal infection,Infectio n and inflammatory reaction due to cardiac device, implant, and graft, sequela,Presence of heart assist device (HCC) Infuse 500 mL IV as directed . After adding 1500 mg (75 ml) of Dalbavancin to 500 ml bag of dextrose 5% (D5W) infuse over a minimum of 30 minutes rate flow tubing set on WIDE OPEN every 2 weeks. START INFUSION WITHIN 4 HOURS OF MIXING 1500 mL 11 10/23/2024 6 dextrose 5 % in water (dextrose 5% water) 5% flushIndications:B acterial intestinal infection,Infectio n and inflammatory reaction due to cardiac device, implant, and graft, sequela,Presence of heart assist device (HCC) Infuse 10 mL IV as needed (before and after Dalbavancin infusion) NOTE: Dalbavancin is not compatible with normal saline. 20 mL 11 08/31/2024 6 heparin 100 unit/mL syringeIndications :Bacterial intestinal infection,Infectio n and inflammatory reaction due to cardiac device, implant, and graft, sequela,Presence of heart assist device (HCC) Infuse 5 mL (500 Units total) IV as needed (line care) 42986 mL 08/31/2024 6 sodium chloride 0.9% flush syringeIndications :Bacterial intestinal infection,Infectio n and inflammatory reaction due to cardiac device, implant, and graft, sequela,Presence of heart assist device (HCC) Infuse 10 mL IV as needed for line care [id number] mL 08/31/2024 6 dalbavancin (DALVANCE) 500 mg solutionIndication s:Bacterial intestinal infection,Infectio n and inflammatory reaction due to cardiac device, implant, and graft, sequela,Presence of heart assist device (HCC) Infuse 75 mL (1,500 mg total) IV [...] WITH DEXTROSE FLUSH ONLY 225 mL 8 08/31/2024 6 dextrose 5% solutionIndication s:Bacterial intestinal infection,Infectio n and inflammatory reaction due to cardiac device, implant, and graft, sequela,Presence of heart assist device (HCC) Infuse 500 mL IV as directed . After adding 1500 mg (75 ml) of Dalbavancin to 500 ml bag of dextrose 5% (D5W) infuse over a minimum of 30 minutes at 1000 ml/hr with pole mounted pump or rate flow tubing set on WIDE OPEN every 2 weeks. START INFUSION WITHIN 4 HOURS OF MIXING 1500 mL 11 08/31/2024 documented in this encounter Plan of Treatment Not on file documented as of this encounter Visit Diagnoses Diagnosis Infection and inflammatory reaction due to cardiac device, implant, and graft, sequela- Primary Bacterial intestinal infection Bacterial enteritis, unspecified Presence of heart assist device (HCC) documented in this encounter Discontinued Medications Medication Sig Discontinue Reason Start Date End Da te sodium chloride 0.9% injection Infuse 10 mL into a venous catheter as needed for line care Duplicate order 09/03/2024 10/23/2024 dextrose 5% solutionIndications:Kamran terial intestinal infection,Infection and inflammatory reaction due to cardiac device, implant, and graft, sequela,Presence of heart assist device (HCC) Infuse 500 mL IV as directed . After adding 1500 mg (75 ml) of Dalbavancin to 500 ml bag of dextrose 5% (D5W) infuse over a minimum of 30 minutes at 1000 ml/hr with pole mounted pump or rate flow tubing set on WIDE OPEN every 2 weeks. 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
--- OUTSIDE RECORDS SUMMARY | 2024-11-06 17:21 | XMS_ITS | Encounter Summary ---
Author Organization [facility] Address [address] [place] [address] Phone Care Team Providers Care Alliance Consultant Name Role Phone Collin John MD Primary Care Provider [phone] Marietta Carroll RN Unavailable Jacque karthikble Suresh Verma MD Unavailable [phone] Poa Allen RN Unavailable [phone] Tika Araujo MD Primary Care Provider [phone] Tika Araujo MD Primary Care Provider [phone] Emmy Alicea Unavailable Unavailable Americo Mcneil MD Unavailable [phone] Korey Warren [facility] Unavailable Unavail able Encounter Details Date Type Department Care Team (Late st Contact Info) Description 12/10/2016 Orders Only [facility] IM CAR CLINCONV Provider, MD Crys [address] [place] [address] Social History Tobacco Use Types Packs/Day Years Used Date Smoking Tobacco: Never Alcohol Use Standard Drinks/Week Comments No 0 (1 standard drink = 0.6 oz pur e alcohol) Sex and Gender Information Value Date Recorded Sex Assigned at Not on file Legal Sex Male 12:11 AM PROTECTION AGENT Gender Identity Not on file Sexual Orientation Not on file documented as of this encounter Plan of Treatment Not on file documented as of this encounter Procedures Procedure Name Priority Date/Time Associated Diagnosis Comments CARDIOLOGY REPORT 12/10/2016 documented in this encounter Results * CARDIOLOGY REPORT (12/10/2016) Anatomical Region Laterality Modality Other Narrative 12/10/2016 Ordered by an unspecified provider. Historical Provider [facility] CARDIAC SERVICES ABRAHAM JORDAN Final Result documented in this encounter Visit [...] documented as of this encounter Care Teams Alliance Consultant Relationship Specialty Start Date End Date Collin John MD [address] [address] PCP - General 07/13/16 02/24/20 Tika Araujo MD PCP - General Nurse Practitioner 03/27/20 Tika Araujo MD PCP - General 02/25/20 03/26/20 Americo Mcneil MD [address] [facility] [phone] [place] [address] PCP - Home Infusion Attending Infectious Diseases 10/15/24 Marietta Carroll, RN Registered Nurse Fbi Profiler 10/31/17 03/20/19 Suresh Verma MD Paper Coating Supervisor Transplant 09/16/18 Pao Allen, RN VAD Coordinator Transplant 03/20/19 Emmy Alicea Primary Helicopter Pilot Instructor Transplant 08/14/24 Korey Warren, [facility] Pharmacist Pharmacy 10/23/24 documented as of this encounter
--- OUTSIDE RECORDS SUMMARY | 2024-11-06 17:21 | XMS_ITS | Encounter Summary ---
Author Organization [facility] Address [address] [place] [address] Phone Care Team Providers Care Dining Room Server Name Role Phone Collin John MD Primary Care Provider [phone] Prasanna Newton DO Primary Care Provider [phone] Marietta Carroll RN Unavailable Jacque Suresh Miller MD Unavailable [phone] Pao Allen RN Unavailable [phone] Tika Araujo MD Primary Care Provider [phone] Tika Araujo MD Primary Care Provider [phone] Emmy Alicea Unavailable Unavailable Americo Mcneil MD Unavailable [phone] Korey Warren [facility] Unavailable Unavail able Encounter Details Date Type Department Care Team (Late st Contact Info) Description 02/26/2016 Orders Only [facility] IM CAR CLINCONV Provider, MD Crys [address] [place] [address] Social History Tobacco Use Types Packs/Day Years Used Date Smoking Tobacco: Never Alcohol Use Standard Drinks/Week Comments No 0 (1 standard drink = 0.6 oz pur e alcohol) Sex and Gender Information Value Date Recorded Sex Assigned at Not on file Legal Sex Male 12:11 AM CELLULAR EQUIPMENT INSTALLER Gender Identity Not on file Sexual Orientation Not on file documented as of this encounter Plan of Treatment Not on file documented as of this encounter Procedures Procedure Name Priority Date/Time Associated Diagnosis Comments CARDIOLOGY REPORT 02/26/2016 CARDIOLOGY REPORT 02/26/2016 documented in this encounter Results * CARDIOLOGY REPORT (02/26/2016) Anatomical Region Laterality Modality Other Narrative 02/26/2016 Ordered by an unspecified provider. us Historical Provider MD CV CARDIAC SERVICES PROCE DURAPOLONIA Final Result * CARDIOLOGY REPORT (02/26/2016) Anatomical Region Laterality Modality Other Narrative 02/26/2016 Ordered by an unspecified provider. us Historical [...] documented as of this encounter Care Teams Dining Room Server Relationship Specialty Start Date End Date Collin John MD [id number] [place] [address] PCP - General 07/13/16 02/24/20 Prasanna Newton DO [address] [place] [address] PCP - General 06/07/06 07/12/16 Tika Araujo MD PCP - General Nurse Practitioner 03/27/20 Tika Araujo MD PCP - General 02/25/20 03/26/20 Aemrico Mcneil MD [address] [facility] [phone] [place] [address] PCP - Home Infusion Attending Infectious Diseases 10/15/24 Marietta Carroll, SANKET Registered Nurse Container Crane Operator 10/31/17 03/20/19 Suresh Verma MD Maintenance Mechanic Helper Transplant 09/16/18 Pao Allen, RN VAD Coordinator Transplant 03/20/19 Emmy Alicea Primary Family Development Specialist Transplant 08/14/24 Korey Warren [facility] Pharmacist Pharmacy 10/23/24 documented as of this encounter
--- OUTSIDE RECORDS SUMMARY | 2024-11-06 17:21 | XMS_ITS | Clinical Summary ---
Author Organization [facility] Virtual Care Address [address] [place] [id number] Phone Care Team Providers Care Medical Insurance Coding Specialist Name Role Phone Suresh Verma MD Unavailable [phone] Pao Allen RN Unavailable [phone] Tika Araujo MD Primary Care Provider [phone] Emmy Alicea Unavailable Unavailable Americo Mcneil MD Unavailable [phone] Korey Warren [facility] Unavailable Unavail able Allergies Active Allergy Reactions Criticality Noted Date [...] tablet (14 mg total) by mouth daily Active tamsulosin (FLOMAX) 0.4 mg extended release capsule Take 1 capsule (0.4 mg total) by mouth daily Active levoFLOXacin (LEVAQUIN) 750 mg tabletIndicatio ns:Other (complete free text reason below),chronic drive line infection, on suppressive therapy Take 1 tablet (750 mg total) by mouth every other day 90 tablet Active traZODone (DESYREL) 50 mg tablet Take [...] on 5 minutes, and rinse 120 mL 3 Active hydrocortisone 2.5 % cream Apply topically 2 (two) times a day as needed for rash (on face) 30 g 3 Active dalbavancin (DALVANCE) 500 mg solutionIndicat ions:Bacterial intestinal infection,Infec tion and inflammatory reaction due to cardiac device, implant, and graft, sequela,Presenc e of heart assist device (HCC) Infuse 75 [...] e of heart assist device (HCC) Infuse 10 mL IV as needed for line care 00871 mL 2025 Active heparin 100 unit/mL syringeIndicati ons:Bacterial intestinal infection,Infec tion and inflammatory reaction due to cardiac device, implant, and graft, sequela,Presenc e of heart assist device (HCC) Infuse 5 mL (500 Units total) IV as needed (line care) 36268 mL 025 2025 Active dextrose 5 % in water (dextrose 5% water) 5% flushIndication s:Bacterial intestinal infection,Infec tion and inflammatory reaction due to cardiac device, implant, and graft, sequela,Presenc e of heart assist device (HCC) Infuse 10 mL IV as needed (before and after Dalbavancin infusion) NOTE: Dalbavancin is not compatible with normal saline. 20 mL 11 025 2025 Active dextrose 5% solutionIndicat ions:Bacterial intestinal [...] Assist Device 4 mg daily; 2 mg 025 Active warfarin (COUMADIN) 4 mg tabletIndicatio ns:Left Ventricular Assist Device 4 mg daily, 2 mg 025 Active warfarin (COUMADIN) 2 mg tablet [...] bid Assessment & Plan (05/27/2024 2:51 AM ENDOSCOPIC TECHNICIAN): -Home regimen: Entresto, coreg and imdur. -hold these iso orthostasis; re-introduce as tolerated Orthostasis 05/27/2024 Assessment & Plan (05/27/2024 5:39 AM ENDOSCOPIC TECHNICIAN): Presented with orthostatic symptoms while at home [...] 05/27/2024 Assessment & Plan (06/05/2024 11:44 AM ENDOSCOPIC TECHNICIAN): Admitted with BRBPR and near syncope, Hgb [...] sigmoidoscopy. Assessment & Plan (06/04/2024 11:42 AM ENDOSCOPIC TECHNICIAN): Admitted with BRBPR and near syncope, Hgb [...] is not conducive to diagnostic scope for EILSEO. Patient is aware of this consideration. -GI service to follow up on pathology from sigmoidoscopy. Assessment & Plan (06/03/2024 8:04 AM ENDOSCOPIC TECHNICIAN): Admitted with BRBPR and near syncope, Hgb [...] sigmoidoscopy. Assessment & Plan (06/01/2024 11:39 AM ENDOSCOPIC TECHNICIAN): Admitted with BRBPR and near syncope, Hgb [...] sigmoidoscopy. Assessment & Plan (05/31/2024 9:25 AM ENDOSCOPIC TECHNICIAN): Admitted with BRBPR and near syncope, Hgb [...] CBCs Assessment & Plan (05/27/2024 12:05 PM ENDOSCOPIC TECHNICIAN): C/O BRBPR admitted with near syncope, admit Hgb 11.6, INR 2.4 -serial CBC -BID PPI -guaiac stools -hold ASA and warfarin pending Hgb trend -consider GI consult when INR down Assessment & Plan (05/27/2024 5:33 AM ENDOSCOPIC TECHNICIAN): After admission; overnight patient had episode of [...] inpatient Assessment & Plan (06/05/2024 11:44 AM ENDOSCOPIC TECHNICIAN): Home regimen: Lantus 30units nightly and Lispro SSI -HgbA1c 6.8 -BG currently controlled -Continue dose reduced Lantus 26 units nightly, Lispro 6 units TID with meals + SSI -Carb consistent diet -Accuchecks Assessment & Plan (06/04/2024 11:41 AM ENDOSCOPIC TECHNICIAN): Home regimen: Lantus 30units nightly and Lispro SSI -HgbA1c 6.8 -BG currently controlled -Continue dose reduced Lantus 26 units nightly, Lispro 6 units TID with meals + SSI -Carb consistent diet -Accuchecks Assessment & Plan (06/03/2024 8:03 AM ENDOSCOPIC TECHNICIAN): Home regimen: Lantus 30units nightly and Lispro SSI -HgbA1c 6.8 -BG currently controlled -Continue dose reduced Lantus 26 units nightly, Lispro 6 units TID with meals + SSI -Carb consistent diet -Accuchecks Assessment & Plan (06/01/2024 11:40 AM ENDOSCOPIC TECHNICIAN): Home regimen: Lantus 30units nightly and Lispro SSI -HgbA1c 6.8 -BG currently controlled -Continue dose reduced Lantus 26 units nightly, Lispro 6 units TID with meals + SSI -Carb consistent diet -Accuchecks Assessment & Plan (05/31/2024 9:30 AM ENDOSCOPIC TECHNICIAN): Home regimen: Lantus 30units nightly and Lispro SSI -HgbA1c 6.8 -BG currently controlled -Continue dose reduced Lantus 26 units nightly, Lispro 6 units TID with meals + SSI -Carb consistent diet -Accuchecks Assessment & Plan (05/27/2024 9:58 AM ENDOSCOPIC TECHNICIAN): Home regimen includes lantus 30 IU nightly and lispro SSI HgbA1c 6.8 -dose reduce lantus, add meal time lispro insulin Hypomagnesemia 05/27/2024 Assessment & Plan (06/03/2024 8:04 AM ENDOSCOPIC TECHNICIAN): S/p IV repletion this admission, continue to check and treat as needed Assessment & Plan (05/27/2024 12:04 PM ENDOSCOPIC TECHNICIAN): Mg 1.3 -replete with PO and IV -recheck tomorrow History of left ventricular assist device (LVAD) 05/26/2024 Assessment & Plan (06/05/2024 11:44 AM ENDOSCOPIC TECHNICIAN): 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) admitted with near [...] admission and GI bleeding - resumed entresto / -Accurate I&O, monitor on telemetry, daily weights Assessment & Plan (06/04/2024 11:42 AM ENDOSCOPIC TECHNICIAN): 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) admitted with near [...] weights Assessment & Plan (06/03/2024 8:04 AM ENDOSCOPIC TECHNICIAN): 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) admitted with near [...] weights Assessment & Plan (06/01/2024 11:30 AM ENDOSCOPIC TECHNICIAN): 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) admitted with near [...] weights Assessment & Plan (05/31/2024 9:45 AM ENDOSCOPIC TECHNICIAN): 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 Assessment & Plan (04/18/2024 1:51 PM ENDOSCOPIC TECHNICIAN): RUQ/ Right flank pain associated with nausea [...] control. Assessment & Plan (04/18/2024 1:38 AM ENDOSCOPIC TECHNICIAN): RUQ/ Right flank pain associated with nausea [...] 04/17/2024 Assessment & Plan (04/19/2024 12:38 PM ENDOSCOPIC TECHNICIAN): - have been progressively increasing lately - [...] desensitization. Assessment & Plan (04/18/2024 1:40 PM ENDOSCOPIC TECHNICIAN): - have been progressively increasing lately - [...] recs. 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 [...] 05/31) Assessment & Plan (06/03/2024 8:04 AM ENDOSCOPIC TECHNICIAN): 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 Assessment & Plan (04/01/2023 12:48 PM [...] vancomycin Patient had hypotensive reaction to vancomycin 6/9- concern for severe allergy Changed from imipenem-cilastatin [...] 08/28/2021 Assessment & Plan (05/27/2024 2:46 AM ENDOSCOPIC TECHNICIAN): Improving from prior admission when minocycline switched [...] CPAP Assessment & Plan (06/05/2024 11:46 AM ENDOSCOPIC TECHNICIAN): -Nightly CPAP with home unit Assessment & Plan (06/04/2024 11:43 AM ENDOSCOPIC TECHNICIAN): -Nightly CPAP with home unit Assessment & Plan (06/03/2024 8:05 AM ENDOSCOPIC TECHNICIAN): Nightly CPAP with home unit Assessment & Plan (06/01/2024 11:40 AM ENDOSCOPIC TECHNICIAN): Nightly CPAP with home unit Assessment & Plan (05/29/2024 11:33 AM ENDOSCOPIC TECHNICIAN): Nightly CPAP with home unit Assessment & Plan (05/27/2024 9:50 AM ENDOSCOPIC TECHNICIAN): Nightly CPAP with home unit Assessment & Plan (05/27/2024 1:34 AM ENDOSCOPIC TECHNICIAN): - continue CPAP Assessment & Plan (04/19/2024 12:49 PM ENDOSCOPIC TECHNICIAN): Continue with CPAP Assessment & Plan (04/18/2024 1:45 PM ENDOSCOPIC TECHNICIAN): Continue with CPAP Assessment & Plan (04/18/2024 2:03 AM ENDOSCOPIC TECHNICIAN): CW CPAP Assessment & Plan (04/02/2023 8:42 [...] 10/22/2020 Assessment & Plan (06/05/2024 11:46 AM ENDOSCOPIC TECHNICIAN): -BMI 34, encourage weight loss Assessment & Plan (06/03/2024 8:05 AM ENDOSCOPIC TECHNICIAN): BMI 34, encouraged weight loss Assessment & Plan (05/27/2024 7:50 AM ENDOSCOPIC TECHNICIAN): BMI 34, encouraged weight loss Assessment & [...] 06/14/2018 Assessment & Plan (06/05/2024 11:42 AM ENDOSCOPIC TECHNICIAN): Pt c/o chest pain x 3 days relieved with SL nitro. -hx CABG and PCI in past -slightly elevated troponin, continue to trend -EKG unremarkable -increase imdur to 60mg daily -continue coreg, hold ASA 2/2 GIB, previously discontinued statin 2/2 elevated LFT -denies CP since admit Assessment & Plan (06/04/2024 11:36 AM ENDOSCOPIC TECHNICIAN): Pt c/o chest pain x 3 days relieved with SL nitro. -hx CABG and PCI in past -slightly elevated troponin, continue to trend -EKG unremarkable -increase imdur to 60mg daily -continue coreg, hold ASA 2/2 GIB, previously discontinued statin 2/2 elevated LFT -denies CP since admit Assessment & Plan (06/03/2024 8:00 AM ENDOSCOPIC TECHNICIAN): Pt c/o chest pain x 3 days relieved with SL nitro. -hx CABG and PCI in past -slightly elevated troponin, continue to trend -EKG unremarkable -increase imdur to 60mg daily -continue coreg, hold ASA 2/2 GIB, previously discontinued statin 2/2 elevated LFT -denies CP since admit Assessment & Plan (05/27/2024 12:21 PM ENDOSCOPIC TECHNICIAN): Pt c/o chest pain x 3 days [...] diuretics Assessment & Plan (08/02/2019 9:43 AM ENDOSCOPIC TECHNICIAN): -chronic systolic end stage heart failure -exam [...] -tele Assessment & Plan (08/01/2019 12:24 PM ENDOSCOPIC TECHNICIAN): -chronic systolic end stage heart failure -exam appears euvolemic and LVAD appears to be functioning appropriately -suspect that presenting CP 2/2 poorly controlled BP -continue asa/losartan and coreg/nitrate doses increased -add home torsemide for improved BP control -2D echo pending -continue low sodium diet -tele Assessment & Plan (07/31/2019 4:15 PM ENDOSCOPIC TECHNICIAN): Appears euvolemic on exam Admitted with elevated [...] therapy on April 12, 2015 for underlying [place] [employer] class IV heart failure Assessment & Plan (08/31/2024 8:44 AM CDT): ICM with HFrEF S/P GYPSUM ROOFER-D and DT-HM3 (03/2015) admitted with BRBPR. Hemodynamically stable, appears euvolemic and denies VAD alarms. INR 2.24 on admission. -held warfarin for GIB, restarted warfarin 4/ with heparin bridge -INR now therapeutic and heparin gtt d/c'd -INR goal 1.8-2.2, check daily -INR trend 1.48 -> 1.76 -> 1.95->1.84 -decrease warfarin to 3 mg daily -stopped asa -cont entresto, coreg, imdur -start spironolactone 25 mg daily -cont suppressive abx for hx driveline infection -PT/OT/mobile tester -tele monitoring Assessment & Plan (08/30/2024 1:39 PM CDT): ICM with HFrEF S/P GYPSUM ROOFER-D and DT-HM3 (03/2015) admitted with BRBPR. Hemodynamically [...] -cont suppressive abx for hx driveline infection -PT/OT/mobile tester -tele monitoring Assessment & Plan (08/29/2024 9:09 AM CDT): ICM with HFrEF S/P GYPSUM ROOFER-D and DT-HM3 (03/2015) admitted with BRBPR. Hemodynamically stable, appears euvolemic and denies VAD alarms. INR 2.24 on admission. -held warfarin for GIB, INR now 1.48, restarting warfarin with heparin bridge -warfarin 5mg tonight then 4mg daily -stopped asa -cont entresto, coreg, imdur -cont suppressive abx for hx driveline infection -PT/OT/mobile tester -tele monitoring Assessment & Plan (08/26/2024 12:36 PM CDT): ICM with HFrEF S/P GYPSUM ROOFER-D and DT-HM3 (03/2015) admitted with BRBPR. Hemodynamically stable, appears euvolemic and denies VAD alarms. INR 2.24 on admission. -hold warfarin for GIB -cont entresto, coreg, imdur -cont suppressive abx for hx driveline infection -tele monitoring Assessment & Plan (08/24/2024 10:44 AM CDT): ICM with HFrEF S/P GYPSUM ROOFER-D and DT-HM3 (03/2015) admitted with BRBPR. Hemodynamically [...] 2:53 AM CDT): ICM with HFrEF S/P GYPSUM ROOFER-D and DT-HM3 (03/2015) admitted with BRBPR. Hemodynamically stable, appears euvolemic and denies VAD alarms. INR 2.24 on admission. 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 -tele monitoring Assessment & Plan (04/19/2024 12:46 PM ENDOSCOPIC TECHNICIAN): ICM with HFrEF S/P GYPSUM ROOFER-D and DT-HM3 (03/2015) Hx of recurrent drive [...] diet Assessment & Plan (04/18/2024 1:45 PM ENDOSCOPIC TECHNICIAN): ICM with HFrEF S/P GYPSUM ROOFER-D and DT-HM3 (03/2015) Hx of recurrent drive [...] diet Assessment & Plan (04/18/2024 3:54 AM ENDOSCOPIC TECHNICIAN): ICM with HFrEF S/P GYPSUM ROOFER-D and DT-HM3 (03/2015) Hx of recurrent drive [...] BP not improved with IVF will need ELECTRIC DISTRIBUTION CHECKER -strict I/Os, daily standing weights -tele Assessment [...] Assessment & Plan (09/02/2021 12:01 PM CDT): III March 2015 -LVAD functioning appropriately, no alarms -acute on chronic systolic HF with VENU and elevated LFTs -treated with IV lasix with improvement -transitioned back to home torsemide -INR 1.8, will increase warfarin to 6mg daily except Sun/Mon 5mg (home regimen) -continue home carvedilol, hydralazine, isordil, ASA, atorvastatin -I&Os, daily weights, telemetry Assessment & Plan (09/01/2021 9:21 AM CDT): III March 2015 -LVAD functioning appropriately, no alarms -acute on chronic systolic HF with VENU and elevated LFTs -treated with IV lasix with improvement -transition back to home torsemide -INR down to 1.7; will give extra dose warfarin this morning -continue warfarin -continue home carvedilol, hydralazine, isordil, ASA, atorvastatin -I&Os, daily weights, telemetry Assessment & Plan (08/31/2021 3:38 PM CDT): [facility] March 2015 -LVAD functioning appropriately, no alarms [...] Assessment & Plan (08/28/2021 1:53 PM CDT): [facility] March 2015 -LVAD functioning appropriately, no alarms -appears near euvolemic on exam -INR supratherapeutic, hold warfarin tonight -continue home carvedilol, hydralazine, isordil, ASA, atorvastatin -I&Os, daily weights, telemetry Assessment & Plan (08/27/2021 11:55 AM CDT): [facility] March 2015 LVAD functioning appropriately, no alarms -appears near euvolemic on exam -resume home torsemide 20mg daily -INR therapeutic at 2.8 (goal 2-3) -continue home warfarin regimen: 4mg SMWF, 5mg TTS -continue home carvedilol, hydralazine, isordil -continue home ASA 325mg daily, atorvastatin -I&Os, daily weights, telemetry -complication management as above Assessment & Plan (08/26/2021 11:32 AM CDT): [facility] March 2015 LVAD functioning appropriately, no alarms -appears euvolemic on exam -hold home diuretics for now (torsemide 20mg daily) -INR therapeutic at 2.5 (goal 2-3) -continue home warfarin regimen: 4mg SMWF, 5mg TTS -continue home carvedilol, hydralazine, isordil -continue home ASA 325mg daily, atorvastatin -I&Os, daily weights, telemetry -complication management as above Assessment & Plan (08/25/2021 10:29 AM CDT): III March 2015 LVAD functioning appropriately, no alarms -appears euvolemic on exam -hold home diuretics for now (torsemide 20mg daily) -INR therapeutic at 2.2 (goal 2-3) -continue home warfarin regimen: 4mg SMWF, 5mg TTS -continue home carvedilol, hydralazine, isordil -continue home ASA 325mg daily, atorvastatin -I&Os, daily weights, telemetry -complication management as above Assessment & Plan (08/24/2021 2:27 PM CDT): [facility] March 2015 LVAD functioning appropriately, no alarms [...] 2-3) Increase Warfarin to 7mg Monitor on technical sales representatives I/Os, daily weights Assessment & Plan (10/23/2020 [...] 325 Assessment & Plan (07/31/2019 4:13 PM ENDOSCOPIC TECHNICIAN): Patient was implanted in March 2015 as [...] INR checks. Cardiac resynchronization th erapy defibrillator (GYPSUM ROOFER-D) in place 12/30/2017 Overview (12/21/2021): Reached EoL in 2017 - elected NOT to generator change VT (ventricular tachycardia) ([facility]) 8 Overview (12/21/2021): Occurring before LVAD implantation - none since GYPSUM ROOFER-D device (Metronic-- implanted prior to lvad. Pt is not PPM dependent and decision made to not proceed with generator change in December 2017) Assessment & Plan (09/11/2021 10:26 AM CDT): -NSVT on telemetry -Monitor and replete electrolytes -telemetry Assessment & Plan (09/10/2021 9:31 AM CDT): nsvt noted on technical sales representatives for increase in arrythmia Keep potassium above 4 and magnesium around 2 CTM Assessment & Plan (08/02/2019 9:55 AM ENDOSCOPIC TECHNICIAN): -GYPSUM ROOFER-D device (Metronic-- implanted prior to lvad. Pt is not PPM dependent and decision made to not proceed with generator change in December 2017) -continue tele Assessment & Plan (08/01/2019 12:21 PM ENDOSCOPIC TECHNICIAN): -GYPSUM ROOFER-D device (Metronic-- implanted prior to lvad. Pt is not PPM dependent and decision made to not proceed with generator change in December 2017) -continue tele Assessment & Plan (07/31/2019 4:21 PM ENDOSCOPIC TECHNICIAN): patient had GYPSUM ROOFER-D device metronic implanted prior to lvad Is not pacemaker depenent Saw Dr. ortega from -EP clinic 12/2017 and discussion was not to proceed with generator change and patient currently has lvad And chances of arresting from life threating arrhythmia with lvad was low intermission coordinator current use of anticoagulant therapy 0 06/04/2015 [...] miralax Assessment & Plan (06/05/2024 11:43 AM ENDOSCOPIC TECHNICIAN): -CT scan has increase stool burden with [...] today Assessment & Plan (06/04/2024 11:40 AM ENDOSCOPIC TECHNICIAN): -CT scan has increase stool burden with [...] today Assessment & Plan (06/03/2024 9:55 AM ENDOSCOPIC TECHNICIAN): -CT scan has increase stool burden with [...] movements. Assessment & Plan (06/01/2024 11:39 AM ENDOSCOPIC TECHNICIAN): -CT scan has increase stool burden with stool ball in sigmoid colon -S/p enema for preparation for flex sigmoidoscopy performed on 05/29 -Patient has had several BMs since but none yet today -Continue Miralax BID, senna-docusate BID and dulcolax suppository PRN -Add lactulose today Assessment & Plan (05/31/2024 9:45 AM ENDOSCOPIC TECHNICIAN): -CT scan has increase stool burden with stool ball in sigmoid colon -S/p enema for preparation for flex sigmoidoscopy performed on 05/29 -Patient has had several BMs including this morning -Continue Miralax, senna-docusate and dulcolax suppository PRN Assessment & Plan (05/27/2024 2:45 AM ENDOSCOPIC TECHNICIAN): - had large BM in ED - [...] baseline Assessment & Plan (06/05/2024 11:46 AM ENDOSCOPIC TECHNICIAN): -Creatinine at baseline -Avoid nephrotoxins, renally dose meds as appropriate -Avoid hypotension -BMP daily Assessment & Plan (06/04/2024 11:44 AM ENDOSCOPIC TECHNICIAN): -Creatinine at baseline -Avoid nephrotoxins, renally dose meds as appropriate -Avoid hypotension -BMP daily Assessment & Plan (06/03/2024 8:05 AM ENDOSCOPIC TECHNICIAN): Creatinine at baseline Assessment & Plan (06/01/2024 11:40 AM ENDOSCOPIC TECHNICIAN): Creatinine at baseline Assessment & Plan (05/29/2024 11:32 AM ENDOSCOPIC TECHNICIAN): Creatinine at baseline Assessment & Plan (05/27/2024 7:49 AM ENDOSCOPIC TECHNICIAN): Creatinine at baseline Assessment & Plan (04/19/2024 12:49 PM ENDOSCOPIC TECHNICIAN): Cr at baseline CTM. Assessment & Plan (04/18/2024 1:23 PM ENDOSCOPIC TECHNICIAN): Cr at baseline CTM. Assessment & Plan (04/18/2024 1:46 AM ENDOSCOPIC TECHNICIAN): Cr at baseline CTM. Assessment & Plan [...] follow Assessment & Plan (08/02/2019 9:51 AM ENDOSCOPIC TECHNICIAN): Stage 3 CKD -Cr remains stable and in baseline range Assessment & Plan (08/01/2019 12:25 PM ENDOSCOPIC TECHNICIAN): Stage 3 CKD -Cr remains stable and in baseline range Assessment & Plan (07/31/2019 4:15 PM ENDOSCOPIC TECHNICIAN): History ckd stage 3 . Baseline creatine [...] PPI Assessment & Plan (05/27/2024 5:42 AM ENDOSCOPIC TECHNICIAN): - IV ppi Assessment & Plan (04/19/2024 12:39 PM ENDOSCOPIC TECHNICIAN): Continue with pantoprazole. Assessment & Plan (04/18/2024 1:41 PM ENDOSCOPIC TECHNICIAN): Continue with pantoprazole. Assessment & Plan (04/18/2024 1:39 AM ENDOSCOPIC TECHNICIAN): CW pantoprazole. Assessment & Plan (03/20/2022 1:03 [...] PPI Assessment & Plan (08/02/2019 9:45 AM ENDOSCOPIC TECHNICIAN): -+ dyspepsia -continue PPI Assessment & Plan (08/01/2019 10:33 AM ENDOSCOPIC TECHNICIAN): -+ dyspepsia -continue PPI Assessment & Plan (07/31/2019 4:00 PM ENDOSCOPIC TECHNICIAN): Increase home dose PPI to bid to [...] 8:23 AM CDT): -H/H stable from prior BJ reading and pt denies bleeding -Home iron supplementation held for now -continue to follow Assessment & Plan (07/31/2019 4:09 PM ENDOSCOPIC TECHNICIAN): History of anemia - currently blood counts on admission look good Will continue to follow . Hyperlipidemia 01/07/2014 Assessment & Plan (04/19/2024 12:39 PM ENDOSCOPIC TECHNICIAN): Holding statin for elevated liver enzymes. Assessment & Plan (04/18/2024 1:16 PM ENDOSCOPIC TECHNICIAN): Holding statin for elevated liver enzymes. Assessment & Plan (04/18/2024 1:42 AM ENDOSCOPIC TECHNICIAN): Holding statin for elevated liver enzymes. Assessment [...] 08/15/20 Assessment & Plan (07/31/2019 4:10 PM ENDOSCOPIC TECHNICIAN): hi reports being on stelera injections Peripheral vascular disease 01/07/2014 Overview (09/03/2016): PVD Hypertension 01/07/2014 Assessment & Plan (04/19/2024 12:41 PM ENDOSCOPIC TECHNICIAN): -Continue with Entresto, Hydralazine, coreg and imdur. -Monitor BP and adjust accordingly. -Orthostatic BP as patient mentioned having occasional lightheadedness while standing. -encourage adequate rehydration, safety precautions while changing positions, compression stockings. May consider med readjustment if symptoms persist Assessment & Plan (04/18/2024 1:42 PM ENDOSCOPIC TECHNICIAN): -Continue with Entresto, Hydralazine, coreg and imdur. -Monitor BP and adjust accordingly. -Orthostatic BP as patient mentioned having occasional lightheadedness while standing. Assessment & Plan (04/18/2024 3:57 AM ENDOSCOPIC TECHNICIAN): CW Entresto, Hydralazine, coreg and imdur. Monitor [...] needed Assessment & Plan (08/02/2019 9:41 AM ENDOSCOPIC TECHNICIAN): -pt presented with poorly controlled hypertension -systolic BP remains elevated despite increased nitrates and coreg doses -consider addition of low dose norvasc to regimen -continue losartan and torsemide to regimen Assessment & Plan (08/01/2019 12:23 PM ENDOSCOPIC TECHNICIAN): -pt presented with poorly controlled hypertension -nitrates and coreg increased--continue to follow and titrate as needed -continue losartan and add torsemide to regimen Assessment & Plan (07/31/2019 3:57 PM ENDOSCOPIC TECHNICIAN): Elevated blood pressures at home and recorded [...] & Plan (04/02/2023 8:42 AM CDT): KUB 10 c/f ileus -NG placed 03/24 for distention [...] 06/02/2024 Assessment & Plan (05/27/2024 2:07 AM ENDOSCOPIC TECHNICIAN): - flomax; low threshold to hold if recurrent hypotension Assessment & Plan (04/19/2024 12:39 PM ENDOSCOPIC TECHNICIAN): CW tamsulosin. Assessment & Plan (04/18/2024 1:13 PM ENDOSCOPIC TECHNICIAN): CW tamsulosin. Assessment & Plan (04/18/2024 1:39 AM ENDOSCOPIC TECHNICIAN): CW tamsulosin. Assessment & Plan (04/02/2023 8:42 [...] SSI Assessment & Plan (05/27/2024 2:51 AM ENDOSCOPIC TECHNICIAN): Home regimen includes lantus 30 IU nightly and lispro SSI - continue with basal (dose reduced to 17 units during prior admission) and SSI only (he states he takes 1-6 of lispro with meals) - add bolus TID if needed Assessment & Plan (04/19/2024 12:50 PM ENDOSCOPIC TECHNICIAN): Home regimen includes lantus 30 IU nightly and lispro (6-20 IU) (per patient he takes 18 international units with most of the meals) - continue with basal bolus (dose reduced to 17 units) and prandial (dose reduced to 6 units with meals) regimen in additional to SSI - Monitor blood sugar and adjust insuline as needed. Assessment & Plan (04/18/2024 1:55 PM ENDOSCOPIC TECHNICIAN): Home regimen includes lantus 30 IU nightly and lispro (6-20 IU) (per patient he takes 18 international units with most of the meals) - continue with basal bolus (dose reduced to 17 units) and prandial (dose reduced to 6 units with meals) regimen in additional to SSI - Monitor blood sugar and adjust insuline as needed. Assessment & Plan (04/18/2024 1:42 AM ENDOSCOPIC TECHNICIAN): Home regimen includes lantus 30 IU nightly [...] SSI Assessment & Plan (08/02/2019 9:45 AM ENDOSCOPIC TECHNICIAN): -HgA1C well controlled -continue lantus and SSI Assessment & Plan (08/01/2019 10:36 AM ENDOSCOPIC TECHNICIAN): -HgA1C well controlled -continue lantus and SSI Assessment & Plan (07/31/2019 3:54 PM ENDOSCOPIC TECHNICIAN): Recheck hemglobin a1c - last one recored in september 2016- 7.5 Patient states hemglobin a1c controlled as outpatient Continue lantus [address] [facility] and SSI CAD in [place] artery 01/07/2014 025 Overview (02/23/2021): Coronary artery disease with history of coronary artery bypass graft with a MARIN to the LAD and free radial graft to obtuse marginal with multiple subsequent PCI to the right coronary artery. Assessment & Plan (05/27/2024 5:29 AM ENDOSCOPIC TECHNICIAN): SP CABG (MARIN-LAD, free radial graft-OM ) S/p PCI to RCA - hold asa, hold coreg - statins held previously due to prior abnormal LFTs - continue trop trend to peak; currently chest pain free though he did take nitro in last 2-3 days Assessment & Plan (04/19/2024 12:39 PM ENDOSCOPIC TECHNICIAN): SP CABG -Asymptomatic. -Negative troponin. -continue with ASA and coreg. -holding statins d/t abnormal LFTs Assessment & Plan (04/18/2024 1:41 PM ENDOSCOPIC TECHNICIAN): SP CABG -Asymptomatic. -Negative troponin. -continue with ASA and coreg. Assessment & Plan (04/18/2024 1:43 AM ENDOSCOPIC TECHNICIAN): SP CABG Asymptomatic. Negative troponin. CW ASA, [...] carvedilol Assessment & Plan (07/31/2019 4:08 PM ENDOSCOPIC TECHNICIAN): Admitted with chest pain relieved in setting [...] 25mg bid Shortness of breath 12/22/19 22 Encounters Date Type Department Care Team Description 11/06/2024 Anticoagulation Telephone Call [facility] Transplant Heart [address] [place] [address] [address] Mail[address] 01-11-265 [place] [address] Pao Allen RN 11/02/2024 Anticoagulation Telephone Call [facility] Transplant Heart [address] [place] [address] 34[address] Mailstop [phone] [place] [address] Pao Allen RN 10/25/2024 10:00 AM CDT Office Visit [facility] Cardiology [address] [place] [address] Medical Office Building [address] [place] [phone] Ischemic cardiomyopathy (Primary Dx); Chronic systolic heart failure (HCC); Transaminitis; LVAD (left ventricular assist device) present ICM, end-stage systolic CHF s/p HM3 (2014) 10/25/2024 9:20 AM CDT Office Visit [facility] Infectious Diseases [address] [place] [address] Office [facility] [address] [place] [phone] Americo Mcneil MD 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); Eosinophilia, unspecified type 10/25/2024 Documentation [facility] Infectious Diseases [address] [facility] [address] [place] [phone] Shanelle Sanches RN 10/25/2024 Orders Only [facility] Transplant Heart [address] [place] [address] [address] Mailstop [phone] [place] [address] Pao Allen RN 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) 10/23/2024 Anticoagulation Telephone Call [facility] Transplant Heart [address] [facility] [address] Mailstop [phone] [place] [address] Pao Allen, RN 10/23/2024 Home Infusion [facility] Home Infusion Therapy [address] [place] [address] Edwina Robb, [facility] Infection and inflammatory reaction due to cardiac device, implant, and graft, sequela (Primary Dx); Bacterial intestinal infection; Presence of heart assist device (HCC) 10/18/2024 Orders Only [facility] Home Care Services [address] [facility] [address] [place] [phone] Korey Warren RPh 10/18/2024 Telephone [facility] Transplant Heart [address] [place] [address] [address] Mailstop 04-30-383 [place] [address] Steffany Reyes 10/15/2024 11:00 AM CDT Procedure visit [facility] Dermatology [facility] Outpatient Health [address] [place] [phone] Kevin Dodd MD Actinic keratosis (Primary Dx); 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; Basal cell carcinoma (BCC) of left side of neck 10/15/2024 Orders Only [facility] Home Care Services [address] [facility] [address] [place] [phone] Korey Warren RPh 10/12/2024 Telephone [facility] Infectious Diseases [address] [place] [address] Shanelle Sanches RN 10/11/2024 Anticoagulation Telephone Call [facility] Transplant Heart [address] [place] [address] [address] Mailstop 61-00-503 [place] [address] Pao Allen, SANKET 10/11/2024 Documentation [facility] Infectious Diseases [address] [place] [address] Shanelle Sanches, SANKET 10/04/2024 Telephone [facility] Trans[facility] Heart [address] [facility] [address] Mailstop [phone] [place] [address] Faby Macdonald 10/02/2024 Anticoagulation Telephone Call [facility] Transplant Heart [address] [facility] [address] Mailstop 84-75-740 [place] [address] Pao Allen RN 10/02/2024 Telephone [facility] Transplant Heart [address] [facility] [address] Mailstop [phone] [place] [address] Karoline Álvarez 10/01/2024 Telephone [facility] Infectious Diseases [address] [place] [address] Destinee Peraza RMA 10/01/2024 Telephone [facility] Dermatology [address] [place] [address] Outpatient Health [address] [place] [address] Tin Pinedo PA 09/28/2024 Telephone [facility] Home Care Services [address] [facility] [address] [place] [phone] Korey Warren [facility] 09/28/2024 Results Follow-Up [facility] Dermatology [address] [facility] [address] [place] [phone] Tin Pinedo PA Surgical pathology 09/27/2024 Documentation [facility] Infectious Diseases [address] [place] [address] Thelma Desai Lab Results 09/26/2024 Orders Only [facility] [address] [place] [address] Tin Pinedo PA Neoplasm of skin 09/25/2024 2:45 PM CDT Office Visit [facility] Dermatology [address] [place] [address] Outpatient Health [address] [place] [address] Tin Pinedo PA Actinic keratosis (Primary Dx); Neoplasm of skin; Inflamed seborrheic keratosis; Multiple benign nevi; Seborrheic keratosis; Seborrheic dermatitis; History of nonmelanoma skin cancer 09/25/2024 Telephone [facility] Infectious Diseases [address] [facility] Medical Office Building [address] [place] [address] Americo Mcneil MD 09/24/2024 Anticoagulation Telephone Call [facility] Transplant Heart [address] [facility] [address] Mailstop [phone] [place] [address] Estrella Arvizu RN 09/24/2024 Telephone [facility] Transplant Heart [address] [facility] [address] Mailstop 98-04-250 [place] [address] Karoline Álvarez 09/21/2024 Telephone [facility] Transplant Heart [address] [place] [address] [address] Mailstop 12-55-109 [place] [address] Karoline Álvarez 09/21/2024 Telephone [facility] Infectious Diseases [address] [phone] Destinee Peraza RMA 09/20/2024 2:30 PM CDT Office Visit [facility] Orthopaedic Surgery [address] [place] [address] Medical Office Building [address] [place] [address] Tammy Zavala PA Primary osteoarthritis of left knee (Primary Dx); Knee effusion, left 09/20/2024 1:52 PM CDT - 09/20/2024 11:59 PM CDT Hospital Encounter [facility] [address] [place] [address] [address] [place] [address] Left knee pain, unspecified chronicity Discharge Disposition: Discharge to home or self care 09/20/2024 Documentation [facility] Infectious Diseases [address] [place] [address] Thelma Desai Progress/Monitoring 09/18/2024 Anticoagulation Telephone Call [facility] Transplant Heart [address] [place] [address] [address] Mail[address] 77-44-178 [place] [address] Pao Allen RN 09/17/2024 Telephone [facility] Infectious Diseases [address] [place] [address] Indiana Guerrero [facility] 09/14/2024 Orders Only [facility] Home Care Services [address] [facility] [address] [place] [address] Ahslie Jorge, [facility] 09/11/2024 Documentation [facility] Infectious Diseases [address] [place] [address] Thelma Desai Progress/Monitoring 09/11/2024 Anticoagulation Telephone Call [facility] Transplant Heart [address] [facility] [address] Mailstop 90-77-276 [place] [address] Pao Allen, SANKET 09/10/2024 Telephone [facility] Transplant Heart [address] [facility] [address] Mailstop [phone] [place] [address] Isaiah Miranda 09/07/2024 Documentation [facility] Infectious Diseases [address] [place] [address] Thelma Desai Progress/Monitoring 09/07/2024 Anticoagulation Telephone Call [facility] Transplant Heart [address] [facility] [address] Mailstop [phone] [place] [address] Pao Allen, SANKET 09/03/2024 Orders Only [facility] Home Care Services [address] [facility] [address] [place] [address] Korey Warren, [facility] 09/03/2024 SHOP/CHAP Initial Eligibility Review [facility] [address] [place] [address] Erin Franco, RN 08/30/2024 Telephone [facility] Cardiology [address] [facility] 8th [place] [address] [place] [address] Marlene Ivy 08/23/2024 4:10 PM CDT - 08/31/2024 4:35 PM CDT Hospital Encounter [facility] [address] [facility] [place] [phone] Dejan Braxton MD [place], Suresh Tilley MD PhD Lower GI bleed (Primary Dx); LVAD (left ventricular assist device) present (HCC); Warfarin anticoagulation; LVAD (left ventricular assist device) present ICM, end-stage systolic CHF s/p HM3 (2014) Discharge Disposition: Discharge to home or self care 08/23/2024 Telephone [facility] Transplant Heart [address] [facility] [address] Mailstop [phone] [place] [address] Isaiah Miranda 08/21/2024 Anticoagulation Telephone Call [facility] Transplant Heart [address] [place] [address] [address] Mailstop [phone] [place] [address] Pao Allen, SANKET 08/21/2024 Anticoagulation Telephone Call [facility] Transplant Heart [address] [place] [address] [address] Mailstop 22-99-255 [place] [address] Estrella Arvizu RN 08/21/2024 Documentation [facility] Infectious Diseases [address] [place] [phone] Thelma Desai Progress/Monitoring 08/20/2024 Telephone [facility] Gastroenterology [address] [facility] 12th [place] [address] [place] [phone] Paola Talbert LPN Update 08/16/2024 Documentation [facility] Infectious Diseases [address] [place] [address] Thelma Desai Progress/Monitoring 08/14/2024 Anticoagulation Telephone Call [facility] Transplant Heart [address] [facility] [facility] [address] Mailstop [phone] [place] [address] Pao Allen, RN 08/14/2024 Orders Only [facility] Home Care Services [address] [facility] [address] [place] [address] KelvinKorey, [facility] 08/09/2024 Documentation [facility] Infectious Diseases [address] [place] [address] Thelma Desai Progress/Monitoring 08/07/2024 Anticoagulation Telephone Call [facility] Transplant Heart [address] [facility] [address] Mailstop [phone] [place] [address] Pao Allen RN from Last 3 Months Immunizations Immunization Administration Dates Next Due Influenza, Quad, Adjuvantate d, Intramuscular 05/04/2021 Influenza, Quadrivalent, Hig h Dose, Preservative Free, Intrr 03/18/2023,03/08/2022,02/25/2020 Influenza, Trivalent, High D ose, Split, Preservative Free, Intramuscular 04/20/2024,02/26/2019,04/10/2018,02/22 Influenza, Trivalent, Preser vative Free, Intramuscular 04/05/2016,02/19/2011,05/15/2010,03/16 Influenza, Unspecified 02/26/2019,2017,02/22/2017,03/30,02/23/2015,02/19/2011,05/15/2010 ,03/16/2007 Pneumococcal Conjugate PCV 13 06/26/2020 Pneumococcal Polysaccharide PPV23 03/06/2014, Tdap 11/23/2023,06/26/2020 ZOSTER Recombinant 11/23/2023,,08/25/2018,08/12 Surgical History Surgery Date Site/Laterality Comments CORONARY ARTERY BYPASS GRAFT Dbl. 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 Pt is not PPM dependent and decision made to not proceed with generator change in December 2017) -continue tele Ischemic cardiomyopathy 02/08/2018 Progress ion to end-stage HF and LVAD implanted Mar 2015 Vitamin D deficiency 08/16/2013 VITAMIN D D EFICIENCY NOS VITAMIN D DEFICIENCY NOS Gastroesophageal reflux disease 01/07/2014 GERD GERD Last Assessment & Plan: -+ dyspepsia -continue PPI Family History Medical History Relation Name Comments Thyroid disease Daughter Thyroid Diso rder - daughter (Added by TW Conv) Alcohol abuse Father Alcoholism; Coronary artery disease Father Santi nary artery disease; Heart disease Father Cardiovascular disease; /Heart Disease - father ,uncle, aunt (Added by TW Conv) Hypertension Father Hypertension - multiple members (Added by TW Conv) Rheum arthritis Father Rheumatoid a rthritis; /Rheumatoid arthritis; Heart disease Father's Brother Heart Dise ase - father ,uncle, aunt (Added by TW Conv) Cancer Mother Cancer - penis - grandfather (Added by TW Conv) Diabetes type II Mother Diabetes me llitus type 2; Hypertension Mother Hypertension - multiple members (Added by TW Conv) Peripheral vascular disease Mother Peripheral vascular disease; Cancer Other Cancer - penis - grandfather (Added by TW Conv) Relation Name Status Comments Daughter Father Alive Father's Brother Mother Other Social History Tobacco Use Types Packs/Day Years Used Date Smoking Tobacco: Never Passive Smoke Exposure: Never Smokeless Tobacco: Never Tobacco Cessation:Counseling Given: Not Answered Alcohol Use Standard Drinks/Week Comments No 0 (1 standard drink = 0.6 oz pur e alcohol) [facility] Utilities Answer Date Recorded In the past 12 months has [employer], gas, oil, or water [employer] threatened to shut off services in your [...] often do you attend chur ch or synagogue services? More than 4 times per year 08/25/2024 Do you belong to any clubs o r organizations such as jehovah's witness groups, unions, fraternal or athletic groups, or [...] place to sleep or slept in a mcfp (including now)? Patient refused 03/23/2023 Housing Stability [...] any time in the past 12 m [facility], were you homeless or living in a mcfp (including now)? No 08/25/2024 Personal Safety Answer Date Recorded Have you ever been in or are you currently in a harmful physical or emotional relationship or is someone making you feel afraid or unsafe? Denies 08/23/2024 Sex and Gender Information Value Date Recorded Sex Assigned at Not on file Legal Sex Male 12:11 AM ENDOSCOPIC TECHNICIAN Gender Identity Not on file Sexual Orientation Not on file Obstetrics History Last Filed Vital Signs Vital Sign Reading [...] 10/25/2024 9:11 AM CDT Plan of Treatment Health Maintenance Due Date Last Done Comments Albumin Creatinine Ratio, Urine 1948 Dilated Eye Exam 1948 Foot Exam 1948 Hepatitis B Screening 1966 Well Visit 65+ 2013 Covid-19 Vaccine (2023-2 5 season) 2024 05/04/2021, 08/15/2020, 07/18/2020 Hemoglobin A1C 02/23/2025 08/23/2024, 04/30, 03/14/2023, Additional history exists Depression Screening 05/26/2025 05/26/2024 Lipid Panel 05/26/2025 05/26/2024, 02/27, 12/22/2022, Additional history exists Fall Risk Assessment 08/31/2025 08/31/2024 eGFR 11/05/2025 11/05/2024, 06/2024, 10/23/2024, Additional history exists DTaP/Tdap/Td Vaccine (3 - Td or Tdap) 11/22/2033 11/23/2023, 06/26/2020 Colon Cancer Screening-Colonoscopy Discontinued 10/16/2013 Pneumococcal vaccine 65+ Completed 021, 03/06/2014, 03/16/2007 Zoster Vaccine Completed 11/23/2023, 04/30, 08/25/2018, Additional history exists Hepatitis C Screening Completed 04/17/2024 , 04/16/2024, 04/03/2015, Additional history exists Influenza Vaccine Completed 04/20/2024, , 03/08/2022, Additional history exists Colon Cancer Screening-CT Colonography Discontinued 05/29/2024, 10/16/2013 Colon Cancer Screening-DNA Stool Discontinued 05/29/20, 10/16/2013 Colon Cancer Screening-FIT Discontinued 05/29/2024, Colon Cancer Screening-FOBT Discontinued 05/29/2024, 0 10/16/2013 Colon Cancer Screening-Sigmoidoscopy Discontinued 05/29/2024, 10/16/2013 Colorectal Cancer Screening Discontinued Medical Devices Implanted Type Area Park Guide Device Identifier Shelf Expiration Date Model / Serial / Lot Icd ICD Left: Chest Wall Med[employer]onic Lvad LVAD Left: Abdomen [employer]/C R Bard Ventralight St Sepra 8x6in Uncoated Monofilament Lightweight [id number] - [id number] Implanted:Qty: 1 on 03/22/2023 by Tony Blood MD at [facility] Mesh N/A: Abdomen [employer] [id number] 09/24/2024 [id number] / / [id number] Procedures Procedure Name Priority Date/Time Associated Diagnosis [...] Routine 08/06/2024 FLEXIBLE SIGMOIDOSCOPY 05/29/2024 9:01 AM ENDOSCOPIC TECHNICIAN LIPID PANEL STAT 05/26/2024 5:30 PM ENDOSCOPIC TECHNICIAN HEPATITIS C RNA, QUANTITATIVE, PCR STAT 04/17/2024 6:26 PM ENDOSCOPIC TECHNICIAN COLONOSCOPY REPORT 10/16/2013 from Last 3 Months or Most Recently Relevant to Health Maintenance Results * (ABNORMAL) Protime-INR (11/06/2024) INR 1.60(A) 0.90 - 1.10 Blood [facility] LAB BLOOD ORDERABLES Maai l Result * (ABNORMAL) CBC with auto differential (11/05/2024) SCRIBED WBC 7.6 3.8 - 10.8 k/cumm [facility] SCRIBED Hemoglobin 11.9(A) 13.2 - 17.1 g/dL [facility] SCRIBED Hematocrit 38.0(A) 38.5 - 50.0 % [facility] SCRIBED Platelets 179 140 - 400 k/cumm [facility] Blood 11/05/2024 Alfredo Spaulding MD LAB BLOOD ORDERABLES Final Re sult Performing Organization Address [facility] Co de Phone Number [facility] * (ABNORMAL) Protime-INR (11/05/2024) SCRIBED PT [...] 35 Units/L [facility] SCRIBED eGFR in NonAfrican [place] 74 >=60 [facility] Globulin 2.5 1.9 - 3.7 g/dL (calc) [facility] Alb/glob ratio 1.5 1.0 - 2.5 [facility] Blood 11/05/2024 Alfredo Spaulding MD LAB BLOOD ORDERABLES Final Re sult [facility] * (ABNORMAL) Protime-INR (11/02/2024) Pathologist [facility] INR 3.00(A) 0.90 - 1.10 Blood [facility] Provider LAB BLOOD ORDERABLES Maia l Result * (ABNORMAL) CBC with auto differential (10/29/2024 11:38 AM CDT) Pathologist [facility] SCRIBED WBC 6.1 3.8 - 10.8 k/cumm [facility] SCRIBED Hemoglobin 11.8(A) 13.2 - 17.1 g/dL [facility] SCRIBED Hematocrit 37.0(A) 38.5 - 50.0 % [facility] SCRIBED Platelets 190 140 - 400 k/cumm [facility] SCRIBED Eosinophils Abs 689(A) 15 - 500 k/cumm [facility] Blood 10/29/2024 11:3 8 AM CDT Suresh Verma MD LAB BLOOD ORDERABLES Fin al Result Performing Organization Address [facility] de Phone Number [facility] * (ABNORMAL) Protime-INR (10/29/2024 11:38 AM CDT) SCRIBED PT 30.2(A) 9.0 - 11.5 sec [facility] SCRIBED INR 3.0 2.0 - 3.0 sec [facility] Blood 10/29/2024 11:3 8 AM CDT Suresh Verma MD LAB BLOOD ORDERABLES Fin al Result Performing Organization Address [facility] de Phone Number [facility] * (ABNORMAL) Comprehensive metabolic panel (10/29/2024 11:38 AM CDT) SCRIBED Sodium 138 135 - 146 mmol/L [...] 35 Units/L [facility] SCRIBED eGFR in NonAfrican [place] 83 >=60 [facility] Blood 10/29/2024 11:3 8 AM CDT Result [facility] Suresh Verma MD LAB BLOOD ORDERABLES Fin al Result Performing Organization Address [facility]/ZIP Co de Phone Number [facility] * (ABNORMAL) Protime-INR (10/24/2024) INR 3.70(A) 0.90 - 1.10 Blood Result [facility] Provider LAB BLOOD ORDERABLES Maia l [...] Blood 10/23/2024 12:1 5 PM CDT Result [facility] Suresh Verma MD LAB BLOOD ORDERABLES Fin al Result Performing Organization Address [facility]/State/ZIP Co de Phone Number TXP NO LAB FOUND * (ABNORMAL) Protime-INR (10/23/2024) INR 4.70(A) 0.90 - 1.10 Blood Result [facility] Historical Provider LAB BLOOD ORDERABLES Maia l Result * (ABNORMAL) Protime-INR (10/23/2024) SCRIBED PT 40.6(A) 10.2 - 12.9 sec TXP NO LAB FOUND SCRIBED INR 3.7(A) 2.0 - 3.5 sec TXP NO LAB FOUND Blood 10/23/2024 us Suresh Verma [...] NO LAB FOUND SCRIBED eGFR in NonAfrican [place] 59 >90 TXP NO LAB FOUND BUN_Creat Ratio 19.0 6 - 26 TXP NO LAB FOUND Alb/glob ratio 1.1 1.0 - 2.0 TXP N O LAB FOUND Blood 10/23/2024 Suresh Verma MD LAB BLOOD ORDERABLES Fin al Result Performing Organization Address [facility] de Phone Number TXP NO LAB FOUND * (ABNORMAL) CBC with auto differential (10/16/2024) SCRIBED WBC 6.4 3.8 - 10.8 k/cumm [facility] SCRIBED Hemoglobin 11.2(A) 13.2 - 17.1 g/dL [facility] SCRIBED Hematocrit 35.4(A) 38.5 - 50.0 % [facility] SCRIBED Platelets 191 140 - 400 k/cumm [facility] Blood 10/16/2024 Suresh Verma MD LAB BLOOD ORDERABLES Fin al Result Performing Organization Address [facility] de Phone Number [facility] * (ABNORMAL) Protime-INR (10/16/2024) SCRIBED PT 45.5(A) 9.0 - 11.5 sec [facility] SCRIBED INR 4.7(A) 2.0 - 3.0 sec [facility] Blood 10/16/2024 Suresh Verma MD LAB BLOOD ORDERABLES Fin al Result Performing Organization Address [facility] de Phone Number [facility] * (ABNORMAL) Comprehensive [...] 35 Units/L [facility] SCRIBED eGFR in NonAfrican [place] 65 >60 [facility] A/G Ratio 1.4 1.0 - 2.5 [facility] Blood 10/16/2024 Suresh Verma MD LAB BLOOD ORDERABLES Ayo leyla Result - Final Performing Organization Address [facility]/ZIP Co de Phone Number [facility] * (ABNORMAL) Protime-INR (10/11/2024) INR 1.60(A) 0.90 - 1.10 Blood Crys Avila MD LAB BLOOD ORDERABLES Maia l Result * (ABNORMAL) CBC with auto differential (10/10/2024 1:05 PM CDT) SCRIBED WBC 6.6 3.8 - 10.8 k/cumm [facility] SCRIBED Hemoglobin 11.1(A) 13.2 - 17.1 g/dL [facility] SCRIBED Hematocrit 33.8(A) 38.5 - 50.0 % [facility] SCRIBED Platelets 187 140 - 400 k/cumm [facility] Blood 10/10/2024 1:05 PM CDT Suresh Verma MD LAB BLOOD ORDERABLES Fin al Result [facility] * (ABNORMAL) Protime-INR (10/10/2024 1:05 PM CDT) SCRIBED PT 16.9(A) 9.0 - 11.5 sec [facility] SCRIBED INR 1.6(A) 2.0 - 3.0 sec [facility] Blood 10/10/2024 1:05 PM CDT Suresh Verma MD LAB BLOOD ORDERABLES Fin al Result [facility] * (ABNORMAL) Comprehensive metabolic panel (10/10/2024 [...] 35 Units/L [facility] SCRIBED eGFR in NonAfrican [place] 69 >=60 [facility] Blood 10/10/2024 1:05 PM CDT Suresh Verma MD LAB BLOOD ORDERABLES Fin al Result [facility] * (ABNORMAL) Protime-INR (10/02/2024) INR 1.30(A) 0.90 - 1.10 Blood us Crys Avila MD LAB BLOOD ORDERABLES [...] 35 Units/L [facility] SCRIBED eGFR in NonAfrican [place] 64 >=60 [facility] Globulin 2.1 1.9 - 3.7 g/dL (calc) [facility] Alb/glob ratio 1.6 1.0 - 2.5 [facility] Blood 10/01/2024 us Suresh Verma MD LAB BLOOD ORDERABLES Fin al Result [facility] * Surgical pathology (09/25/2024 12:00 AM CDT) Tissue (Skin, shave biopsy) 09/25/2024 09/26/2024 4:30 AM CDT Narrative [facility] - 09/27/2024 4:26 PM CDT EPIC results best viewed via link to PDF [facility] [address], [address] [place] [id number] [email or web address] Note to Patients: This report may [...] REPORTED: 09/27/2024 Submitting Physician Information: JUAN Agrawal [address] [place], [place] [id number] , [phone] DERMATOPATHOLOGY REPORT RESULTS DIAGNOSIS: A. SKIN, LEFT [...] ag/anc ICD-9 ZSD.1474 ZSD.176 Clerical Data A; 36138 B; 50727 The characteristics of special, immunohistochemical, and immunofluorescence stains and in-situ hybridization tests performed by the [facility] were deemed acceptable in ongoing research associate quality control qc measures and in compliance with regulations drawn from the Clinical Laboratory Improvement Act lh9085 (CLIA '88). Control reactions for all stains performed were deemed adequate and appropriate by a pathologist prior to evaluation of patient tissue. Some diagnoses were rendered with the assistance of laboratory-developed tests utilizing analyte-specific reagents; the performance characteristic of these tests were determined by [facility] and are not cleared or approved by the [place] Food an Drug administration. Laboratory developed test may only be performed in a facility that is certified by the [facility] as a high-complexity laboratory under CLIA '88. These tests are used for clinical purposes and are not investigational. Tin MARTINEZ LAB PATHOLOGY ORDERABL ES Final Result Performing Organization Address [facility]/ZIP Co de Phone Number [facility] [address] [place] [phone] * (ABNORMAL) CBC with auto differential (09/24/2024 1:30 PM CDT) SCRIBED WBC 5.99 4.5 - 11.0 k/cumm EXTERNAL LAB SCRIBED Hemoglobin 10.6(A) 14.0 - 18.0 g/dL EXTERNAL LAB SCRIBED Hematocrit 33.1(A) 43.0 - 54.0 % EXTERNAL LAB SCRIBED Platelets 175 130 - 400 k/cumm EXTERNAL LAB Blood 09/24/2024 1:30 PM CDT Suresh Verma MD LAB BLOOD ORDERABLES Fin al Result Performing Organization Address [facility] de Phone Number EXTERNAL LAB * (ABNORMAL) Protime-INR (09/24/2024 1:30 PM CDT) SCRIBED PT 22.7(A) 10.2 - 12.9 sec EXTERNAL LAB SCRIBED INR 2.0 2.0 - 3.0 sec EXTERNAL LAB Blood 09/24/2024 1:30 PM CDT Suresh Verma MD LAB BLOOD ORDERABLES Fin al Result Performing Organization Address [facility] Co de Phone Number EXTERNAL [...] Units/L EXTERNAL LAB SCRIBED eGFR in NonAfrican [place] 69 >90 EXTERNAL LAB Blood 09/24/2024 1:30 PM CDT us Suresh Verma MD LAB BLOOD ORDERABLES Fin al Result EXTERNAL LAB * (ABNORMAL) Protime-INR (09/24/2024) INR 2.00(A) 0.90 - 1.10 Blood us Historical Provider LAB BLOOD ORDERABLES Maia l [...] Maia l Result * (ABNORMAL) Protime-INR (09/18/2024) INR 1.90(A) 0.90 - 1.10 Blood Historical [...] ORDERABLES Fin al Result Performing Organization Address [facility]/ZIP Co de Phone Number [facility] * (ABNORMAL) Protime-INR (09/17/2024) SCRIBED PT 19.5(A) 9.0 - 11.5 sec [facility] SCRIBED INR 1.9(A) 2.0 - 3.0 sec [facility] Blood 09/17/2024 us Suresh Verma MD LAB BLOOD ORDERABLES Fin al Result Performing Organization Address [facility] de Phone Number [facility] * (ABNORMAL) Comprehensive [...] 35 Units/L [facility] SCRIBED eGFR in NonAfrican [place] 57 >60 [facility] Urea nitrogen ur creatine ur ratio 16 6 - 22 [facility] A/G Ratio 1.4 1.0 - 2.5 [facility] Blood 09/17/2024 us Suresh Verma MD LAB BLOOD ORDERABLES Fin al Result Performing Organization Address City/[facility] Co de Phone Number [facility] * (ABNORMAL) Protime-INR (09/11/2024) Pathologist [facility] INR 1.90(A) 0.90 - 1.10 Blood Crys Avila MD LAB BLOOD ORDERABLES Maia l Result * (ABNORMAL) CBC with auto differential (09/10/2024) Pathologist [facility] SCRIBED WBC 7.2 3.8 - 10.8 k/cumm SCRIBED Hemoglobin 10.7(A) 13.2 - 17.1 g/dL SCRIBED Hematocrit 33.1(A) 38.5 - 50.0 % SCRIBED Platelets 187 140 - 400 k/cumm Blood 09/10/2024 Result [facility] Suresh Verma MD LAB BLOOD ORDERABLES Fin al Result * (ABNORMAL) Protime-INR (09/10/2024) Pathologist [facility] SCRIBED PT 19.5(A) 9.0 - 11.5 sec SCRIBED INR 1.9(A) 0.9 - 1.1 sec Blood 09/10/2024 Result [facility] Suresh Verma MD LAB BLOOD ORDERABLES Fin al Result * (ABNORMAL) Comprehensive metabolic panel (09/10/2024) Pathologist [facility] SCRIBED Sodium 138 135 - 146 mmol/L [...] - 35 Units/L SCRIBED eGFR in NonAfrican [place] 55 >60 BUN_Creat Ratio 17 6 - 22 Alb/glob ratio 1.4 1.0 - 2.5 Blood 09/10/2024 Suresh Verma MD LAB BLOOD ORDERABLES Fin al Result * (ABNORMAL) Protime-INR (09/07/2024) INR 1.50(A) 0.90 - 1.10 Blood [facility] Margarita GÓMEZ LAB BLOOD ORDERABLES Maia l Result * (ABNORMAL) CBC with auto differential (09/06/2024) SCRIBED WBC 10.1 3.8 - 10.8 k/cumm [facility] SCRIBED Hemoglobin 11.4(A) 13.2 - 17.1 g/dL [facility] SCRIBED Hematocrit 36.4(A) 38.5 - 50.0 % [facility] SCRIBED Platelets 206 140 - 400 k/cumm [facility] Blood 09/06/2024 Suresh Verma MD LAB BLOOD ORDERABLES Fin [...] 35 Units/L [facility] SCRIBED eGFR in NonAfrican [place] 49 >60 [facility] BUN_Creat Ratio 19 6 - 22 [facility] Globulin 2.4 1.9 - 3.7 g/dL (calc) [facility] Alb/glob ratio 1.4 1.0 - 2.5 [facility] Blood 09/06/2024 us Suresh Veram MD LAB BLOOD ORDERABLES Ayo leyla Result - Final [facility] * (ABNORMAL) POCT glucose (08/31/2024 11:29 AM CDT) Glucose, POC 213(H) 70 - 199 mg/dL Blood 08/31/2024 11:2 9 AM CDT 08/31/2024 11:29 AM CDT us Suresh Wyman MD PhD LAB POCT ORDERABLE S - DEVICE Final Result Performing Organization Address [facility] de Phone Number [facility] [place] [address] * POCT glucose (08/31/2024 7:52 AM CDT) Glucose, POC 194 70 - 199 mg/dL Blood 08/31/2024 7:52 AM CDT 08/31/2024 7:52 AM CDT us Suresh Wyman MD PhD LAB POCT ORDERABLE S - DEVICE Final Result Performing Organization Address [facility] de Phone Number [facility] [place] [address] * Lactate (08/31/2024 4:24 AM CDT) Lactate 1.8 0.7 - 2.0 mmol/L Blood 08/31/2024 4:24 AM CDT 08/31/2024 5:27 AM CDT us Suresh Wyman MD PhD LAB BLOOD ORDERABL ES Final Result Performing Organization Address [facility] Phone Number [facility] [place] [address] * eGFR (08/31/2024 4:24 AM CDT) eGFR [...] PhD LAB BLOOD ORDERABL ES Final Result [facility] [place] [address] * (ABNORMAL) Differential, auto (08/31/2024 4:24 AM CDT) Neutrophil abs 4.81 1.50 - 6.50 K/cumm Imm gran abs 0.31(H) 0.00 - 0.10 K/cumm [facility] Lymphocyte abs 0.82 0.80 - 3.30 K/cumm [facility] Monocyte abs 1.04(H) 0.20 - 0.80 K/cumm [facility] Eosinophil abs 0.67(H) 0.00 - 0.50 K/cumm [facility] Basophil abs 0.11(H) 0.00 - 0.10 K/cumm [facility] Neutrophil pct 62.0 % [facility] Comment: Interpretive Data Percent cell count reference ranges are not reported, since discordance with absolute values may lead to misinterpretation of CBC data. Current Interpretive Data was last revised on 2017. Imm gran pct 4.0 % [facility] Comment: Interpretive Data Percent cell count reference ranges are not reported, since discordance with absolute values may lead to misinterpretation of CBC data. Current Interpretive Data was last revised on 2017. Lymphocyte pct 10.6 % [facility] Comment: Interpretive Data Percent cell count reference ranges are not reported, since discordance with absolute values may lead to misinterpretation of CBC data. Current Interpretive Data was last revised on 2017. Monocyte pct 13.4 % [facility] Comment: Interpretive Data Percent cell count reference ranges are not reported, since discordance with absolute values may lead to misinterpretation of CBC data. Current Interpretive Data was last revised on 2017. Eosinophil pct 8.6 % [facility] Comment: Interpretive Data Percent cell count reference ranges are not reported, since discordance with absolute values may lead to misinterpretation of CBC data. Current Interpretive Data was last revised on 2017. Basophil pct 1.4 % [facility] Comment: Interpretive Data Percent cell count reference ranges are not reported, since discordance with absolute values may lead to misinterpretation of CBC data. Current Interpretive Data was last revised on 2017. Blood 08/31/2024 4:24 AM CDT 08/31/2024 5:28 AM CDT us Suresh Wyman MD PhD LAB BLOOD ORDERABL ES Final Result [facility] [place] [address] * (ABNORMAL) CBC with auto differential (08/31/2024 4:24 AM CDT) WBC 7.76 3.80 - 9.90 K/cumm Hgb 10.4(L) 13.0 - 17.5 g/dL [facility] Hct 30.7(L) 38.9 - 50.3 % [facility] Plt 223 150 - 400 K/cumm [facility] MPV 10.3 9.1 - 12.3 fL [facility] RBC 3.42(L) 4.30 - 5.80 M/cumm [facility] MCV 89.8 81.3 - 96.4 fL [facility] MCH 30.4 27.1 - 33.3 pg [facility] MCHC 33.9 32.3 - 35.7 g/dL [facility] RDW CV 14.6 11.1 - 14.9 % [facility] RDW SD 47.0 35.7 - 48.1 fL [facility] NRBC abs 0.00 0.00 - 0.01 K/cumm [facility] Blood 08/31/2024 4:24 AM CDT 08/31/2024 5:28 AM CDT Suresh Wyman MD PhD LAB BLOOD ORDERABL ES Final Result Performing Organization Address [facility] de Phone Number [facility] [place] [address] * (ABNORMAL) Protime-INR (08/31/2024 4:24 AM CDT) PT 20.1(H) 9.7 - 13.0 sec INR 1.84(H) 0.90 - 1.20 [facility] Comment: Interpretive data Oral anticoagulant therapeutic ranges: [...] ORDERABL ES Final Result Performing Organization Address [facility] Co de Phone Number [facility] [place] [address] * Magnesium (08/31/2024 4:24 AM CDT) Magnesium 1.7 1.4 - 2.5 mg/dL Blood 08/31/2024 4:24 AM CDT 08/31/2024 5:28 AM CDT us Suresh Wyman MD PhD LAB BLOOD ORDERABL ES Final Result [facility] [place] [address] * Basic metabolic panel (08/31/2024 4:24 AM CDT) Pathologist [facility] Sodium 139 135 - 145 mmol/L Potassium, pl 4.1 3.3 - 4.9 mmol/L [facility] Chloride 101 97 - 110 mmol/L [facility] CO2 29 22 - 32 mmol/L [facility] Anion gap 9 2 - 15 mmol/L [facility] BUN 7 6 - 25 mg/dL [facility] Creatinine 1.21 0.80 - 1.30 mg/dL [facility] Glucose 190 70 - 199 mg/dL [facility] Comment: Interpretive Data Fasting glucose >/= 126 [...] 2022. Calcium 8.6 8.5 - 10.3 mg/dL [facility] Blood 08/31/2024 4:24 AM CDT 08/31/2024 5:28 AM CDT us Suresh Wyman MD PhD LAB BLOOD ORDERABL ES Final Result Performing Organization Address City/[facility]/ZIP Co de Phone Number [facility] [place] [address] * (ABNORMAL) POCT glucose (08/30/2024 8:42 PM CDT) Glucose, POC 240(H) 70 - 199 mg/dL Blood 08/30/2024 8:42 PM CDT 08/30/2024 8:42 PM CDT us Suresh Wyman MD PhD LAB POCT ORDERABLE S - DEVICE Final Result Performing Organization Address [facility] de Phone Number [facility] [place] [address] * POCT glucose (08/30/2024 4:51 PM CDT) Glucose, POC 152 70 - 199 mg/dL Blood 08/30/2024 4:51 PM CDT 08/30/2024 4:51 PM CDT us Suresh Wyman MD PhD LAB POCT ORDERABLE S - DEVICE Final Result Performing Organization Address [facility] de Phone Number [facility] [place] [address] * POCT glucose (08/30/2024 11:14 AM CDT) Glucose, POC 173 70 - 199 mg/dL Blood 08/30/2024 11:1 4 AM CDT 08/30/2024 11:14 AM CDT us Suresh Wyman MD PhD LAB POCT ORDERABLE S - DEVICE Final Result Performing Organization Address [facility] de Phone Number [place] [address] * (ABNORMAL) POCT glucose (08/30/2024 7:32 AM CDT) Glucose, POC 219(H) 70 - 199 mg/dL Blood 08/30/2024 7:32 AM CDT 08/30/2024 7:32 AM CDT us Suresh Wyman MD PhD LAB POCT ORDERABLE S - DEVICE Final Result [facility] [place] [address] * Lactate (08/30/2024 5:20 AM CDT) Lactate 2.0 0.7 - 2.0 mmol/L Blood 08/30/2024 5:20 AM CDT 08/30/2024 5:53 AM CDT us Suresh Wyman MD PhD LAB BLOOD ORDERABL ES Final Result Performing Organization Address [facility] Co de Phone Number [facility] [place] [address] * eGFR (08/30/2024 5:20 AM CDT) eGFR 61 >=60 mL/min/1. 73 m2 Comment: [...] PhD LAB BLOOD ORDERABL ES Final Result [facility] [place] [address] * (ABNORMAL) Differential, auto (08/30/2024 5:20 AM CDT) Neutrophil abs 3.64 1.50 - 6.50 K/cumm Imm gran abs 0.18(H) 0.00 - 0.10 K/cumm [facility] Lymphocyte abs 0.86 0.80 - 3.30 K/cumm [facility] Monocyte abs 0.91(H) 0.20 - 0.80 K/cumm [facility] Eosinophil abs 0.62(H) 0.00 - 0.50 K/cumm [facility] Basophil abs 0.11(H) 0.00 - 0.10 K/cumm [facility] Neutrophil pct 57.7 % [facility] Comment: Interpretive Data Percent cell count reference ranges are not reported, since discordance with absolute values may lead to misinterpretation of CBC data. Current Interpretive Data was last revised on 2017. Imm gran pct 2.8 % [facility] Comment: Interpretive Data Percent cell count reference ranges are not reported, since discordance with absolute values may lead to misinterpretation of CBC data. Current Interpretive Data was last revised on 2017. Lymphocyte pct 13.6 % [facility] Comment: Interpretive Data Percent cell count reference ranges are not reported, since discordance with absolute values may lead to misinterpretation of CBC data. Current Interpretive Data was last revised on 2017. Monocyte pct 14.4 % [facility] Comment: Interpretive Data Percent cell count reference ranges are not reported, since discordance with absolute values may lead to misinterpretation of CBC data. Current Interpretive Data was last revised on 2017. Eosinophil pct 9.8 % [facility] Comment: Interpretive Data Percent cell count reference ranges are not reported, since discordance with absolute values may lead to misinterpretation of CBC data. Current Interpretive Data was last revised on 2017. Basophil pct 1.7 % [facility] Comment: Interpretive Data Percent cell count reference ranges are not reported, since discordance with absolute values may lead to misinterpretation of CBC data. Current Interpretive Data was last revised on 2017. Blood 08/30/2024 5:20 AM CDT 08/30/2024 5:55 AM CDT us Suresh Wyman MD PhD LAB BLOOD ORDERABL ES Final Result Performing Organization Address City/[facility]/ZIP Co de Phone Number [facility] [place] [address] * (ABNORMAL) CBC with auto differential (08/30/2024 5:20 AM CDT) Pathologist [facility] WBC 6.32 3.80 - 9.90 K/cumm Hgb 9.9(L) 13.0 - 17.5 g/dL [facility] Hct 30.2(L) 38.9 - 50.3 % [facility] Plt 199 150 - 400 K/cumm [facility] MPV 10.1 9.1 - 12.3 fL [facility] RBC 3.32(L) 4.30 - 5.80 M/cumm [facility] MCV 91.0 81.3 - 96.4 fL [facility] MCH 29.8 27.1 - 33.3 pg [facility] MCHC 32.8 32.3 - 35.7 g/dL [facility] RDW CV 14.3 11.1 - 14.9 % [facility] RDW SD 47.2 35.7 - 48.1 fL [facility] NRBC abs 0.00 0.00 - 0.01 K/cumm [facility] Blood 08/30/2024 5:20 AM CDT 08/30/2024 5:55 AM CDT us Suresh Wyman MD PhD LAB BLOOD ORDERABL ES Final Result Performing Organization Address City/[facility]/ZIP Co de Phone Number [facility] [place] [address] * (ABNORMAL) Protime-INR (08/30/2024 5:20 AM CDT) [facility] PT 21.4(H) 9.7 - 13.0 sec INR 1.95(H) 0.90 - 1.20 [facility] Comment: Interpretive data Oral anticoagulant therapeutic ranges: Venous thromboembolism prophylaxis or treatment: 2.0-3.0 CARDIOLOGY Standard range: 2.0-3.0 High-intensity range: 2.5-3.5 Refer to indication-specific guidelines for appropriate target ranges for prosthetic heart valve replacement. Current interpretive data was last revised on 2019. Blood 08/30/2024 5:20 AM CDT 08/30/2024 5:58 AM CDT Narrative [facility] - 08/30/2024 6:19 AM CDT While on warfarin us Maria Luisa Escamilla [employer] LAB BLOOD ORDERABLES Final Result [facility] [place] [address] * Magnesium (08/30/2024 5:20 AM CDT) [facility] Magnesium 1.7 1.4 - 2.5 mg/dL Blood 08/30/2024 5:20 AM CDT 08/30/2024 5:56 AM CDT us Suresh Wyman MD PhD LAB BLOOD ORDERABL ES Final Result [facility] [place] [address] * (ABNORMAL) Basic metabolic panel (08/30/2024 5:20 AM CDT) [facility] Sodium 139 135 - 145 mmol/L Potassium, pl 3.8 3.3 - 4.9 mmol/L [facility] Chloride 105 97 - 110 mmol/L [facility] CO2 29 22 - 32 mmol/L [facility] Anion gap 5 2 - 15 mmol/L [facility] BUN 5(L) 6 - 25 mg/dL [facility] Creatinine 1.24 0.80 - 1.30 mg/dL [facility] Glucose 201(H) 70 - 199 mg/dL [facility] Comment: Interpretive Data Fasting glucose >/= 126 [...] 2022. Calcium 8.0(L) 8.5 - 10.3 mg/dL [facility] Blood 08/30/2024 5:20 AM CDT 08/30/2024 5:56 AM CDT us Suresh Wyman MD PhD LAB BLOOD ORDERABL ES Final Result [facility] [place] [address] * (ABNORMAL) Protime-INR (08/30/2024 1:10 AM CDT) PT 19.2(H) 9.7 - 13.0 sec INR 1.76(H) 0.90 - 1.20 [facility] Comment: Interpretive data Oral anticoagulant therapeutic ranges: [...] ORDERABL ES Final Result Performing Organization Address [facility] Co de Phone Number [facility] [place] [address] * POCT glucose (08/29/2024 8:22 PM CDT) Glucose, POC 185 70 - 199 mg/dL Blood 08/29/2024 8:22 PM CDT 08/29/2024 8:22 PM CDT us Suresh Wyman MD PhD LAB POCT ORDERABLE S - DEVICE Final Result Performing Organization Address [facility] de Phone Number [facility] [place] [address] * POCT glucose (08/29/2024 4:41 PM CDT) Glucose, POC 159 70 - 199 mg/dL Blood 08/29/2024 4:41 PM CDT 08/29/2024 4:41 PM CDT us Suresh Wyman MD PhD LAB POCT ORDERABLE S - DEVICE Final Result Performing Organization Address [facility] Co de Phone Number [facility] [place] [address] * POCT glucose (08/29/2024 11:43 AM CDT) Glucose, POC 114 70 - 199 mg/dL Blood 08/29/2024 11:4 3 AM CDT 08/29/2024 11:43 AM CDT us Suresh Wyman MD PhD LAB POCT ORDERABLE S - DEVICE Final Result Performing Organization Address [facility] Co de Phone Number [facility] [place] [address] * (ABNORMAL) aPTT (08/29/2024 9:58 AM CDT) aPTT 81(H) 28 - 38 sec Comment: Interpretive Data Heparin therapeutic range: 66.0 - 100.0 seconds. Range based on correlation with therapeutic heparin activity range of 0.3 - 0.7 Units/mL. Current interpretive data was last revised on 2023. Blood 08/29/2024 9:58 AM CDT 08/29/2024 10:47 AM CDT Narrative [facility] - 08/29/2024 11:10 AM CDT STAT PTT [...] (not from [facility]). us Maria Luisa Escamilla WAREHOUSE CONSULTANT LAB BLOOD ORDERABLES Final Result [facility] [place] [address] * POCT glucose (08/29/2024 7:37 AM CDT) Pathologist [facility] [place] Glucose, POC 112 70 - 199 mg/dL Blood 08/29/2024 7:37 AM CDT 08/29/2024 7:37 AM CDT us Suresh Wyman MD PhD LAB POCT ORDERABLE S - DEVICE Final Result [facility] [place] [address] * Lactate (08/29/2024 4:06 AM CDT) Lactate 1.7 0.7 - 2.0 mmol/L Blood 08/29/2024 4:06 AM CDT 08/29/2024 5:52 AM CDT us Belen Maldonado NP LAB BLOOD ORDERABLES Final Result Performing Organization Address City/[facility]/ZIP [place] [address] * eGFR (08/29/2024 4:06 AM CDT) eGFR [...] LAB BLOOD ORDERABLES F inal Result [facility] [place] [address] * (ABNORMAL) Differential, auto (08/29/2024 4:06 AM CDT) Neutrophil abs 3.96 1.50 - 6.50 K/cumm Imm gran abs 0.18(H) 0.00 - 0.10 K/cumm [facility] Lymphocyte abs 0.91 0.80 - 3.30 K/cumm [facility] Monocyte abs 0.96(H) 0.20 - 0.80 K/cumm [facility] Eosinophil abs 0.87(H) 0.00 - 0.50 K/cumm [facility] Basophil abs 0.13(H) 0.00 - 0.10 K/cumm [facility] Neutrophil pct 56.4 % [facility] Comment: Interpretive Data Percent cell count reference ranges are not reported, since discordance with absolute values may lead to misinterpretation of CBC data. Current Interpretive Data was last revised on 2017. Imm gran pct 2.6 % [facility] Comment: Interpretive Data Percent cell count reference ranges are not reported, since discordance with absolute values may lead to misinterpretation of CBC data. Current Interpretive Data was last revised on 2017. Lymphocyte pct 13.0 % [facility] Comment: Interpretive Data Percent cell count reference ranges are not reported, since discordance with absolute values may lead to misinterpretation of CBC data. Current Interpretive Data was last revised on 2017. Monocyte pct 13.7 % [facility] Comment: Interpretive Data Percent cell count reference ranges are not reported, since discordance with absolute values may lead to misinterpretation of CBC data. Current Interpretive Data was last revised on 2017. Eosinophil pct 12.4 % [facility] Comment: Interpretive Data Percent cell count reference ranges are not reported, since discordance with absolute values may lead to misinterpretation of CBC data. Current Interpretive Data was last revised on 2017. Basophil pct 1.9 % [facility] Comment: Interpretive Data Percent cell count reference ranges are not reported, since discordance with absolute values may lead to misinterpretation of CBC data. Current Interpretive Data was last revised on 2017. Blood 08/29/2024 4:06 AM CDT 08/29/2024 5:27 AM CDT Nany Lorenz MD LAB BLOOD ORDERABLES F inal Result Performing Organization Address [facility] de Phone Number [facility] [place] [address] * (ABNORMAL) CBC with auto differential (08/29/2024 4:06 AM CDT) Pathologist [facility] [place] WBC 7.01 3.80 - 9.90 K/cumm Hgb 11.0(L) 13.0 - 17.5 g/dL [facility] Hct 33.4(L) 38.9 - 50.3 % [facility] Plt 278 150 - 400 K/cumm [facility] MPV 10.6 9.1 - 12.3 fL [facility] RBC 3.67(L) 4.30 - 5.80 M/cumm [facility] MCV 91.0 81.3 - 96.4 fL [facility] MCH 30.0 27.1 - 33.3 pg [facility] MCHC 32.9 32.3 - 35.7 g/dL [facility] RDW CV 14.1 11.1 - 14.9 % [facility] RDW SD 46.9 35.7 - 48.1 fL [facility] NRBC abs 0.00 0.00 - 0.01 K/cumm [facility] Blood 08/29/2024 4:06 AM CDT 08/29/2024 5:27 AM CDT us Nany Lorenz MD LAB BLOOD ORDERABLES F inal Result Performing Organization Address [facility] Co de Phone Number [facility] [place] [address] * (ABNORMAL) Protime-INR (08/29/2024 4:06 AM CDT) Pathologist [facility] [place] PT 16.1(H) 9.7 - 13.0 sec INR 1.48(H) 0.90 - 1.20 [facility] Comment: Interpretive data Oral anticoagulant therapeutic ranges: Venous thromboembolism prophylaxis or treatment: 2.0-3.0 CARDIOLOGY Standard range: 2.0-3.0 High-intensity range: 2.5-3.5 Refer to indication-specific guidelines for appropriate target ranges for prosthetic heart valve replacement. Current interpretive data was last revised on 2019. Blood 08/29/2024 4:06 AM CDT 08/29/2024 5:29 AM CDT Nany Lorenz MD LAB BLOOD ORDERABLES F inal Result Performing Organization Address City/[facility]/ZIP Co de Phone Number [facility] [place] [address] * Magnesium (08/29/2024 4:06 AM CDT) [facility] Magnesium 2.0 1.4 - 2.5 mg/dL Blood 08/29/2024 4:06 AM CDT 08/29/2024 5:23 AM CDT Nany Lorenz MD LAB BLOOD ORDERABLES F inal Result Performing Organization Address City/[facility] Co de Phone Number [facility] [place] [address] * (ABNORMAL) Basic metabolic panel (08/29/2024 4:06 AM CDT) Pathologist [facility] [place] Sodium 141 135 - 145 mmol/L Potassium, pl 4.0 3.3 - 4.9 mmol/L [facility] Chloride 105 97 - 110 mmol/L [facility] CO2 29 22 - 32 mmol/L [facility] Anion gap 7 2 - 15 mmol/L [facility] BUN 5(L) 6 - 25 mg/dL [facility] Creatinine 1.14 0.80 - 1.30 mg/dL [facility] Glucose 104 70 - 199 mg/dL [facility] Comment: Interpretive Data Fasting glucose >/= 126 [...] 2022. Calcium 8.5 8.5 - 10.3 mg/dL [facility] Blood 08/29/2024 4:06 AM CDT 08/29/2024 5:23 AM CDT us Nany Lorenz MD LAB BLOOD ORDERABLES F inal Result Performing Organization Address City/[facility]/ZIP Co de Phone Number [facility] [place] [address] * Critical Result Callback Hematology (08/28/2024 10:08 PM CDT) Date Notified [id number] Time Notified 1254 [facility] TestName aPTT [facility] Called/Read Back Maddieagnes Hannah [facility] Credentials RN [facility] Called By RKElana [facility] Blood 08/28/2024 10:0 8 PM CDT 08/28/2024 10:54 PM CDT us Maria Luisa Escamilla NP LAB BLOOD ORDERABLES Final Result Performing Organization Address City/[facility]/ZIP Co de Phone Number [facility] [place] [address] * (ABNORMAL) aPTT (08/28/2024 10:08 PM CDT) aPTT >150(C) 28 - 38 sec Comment: No clot detected in sample Repeated and verified - [id number] - 08/29/24, 12:54 AM Interpretive Data Heparin therapeutic range: 66.0 - 100.0 seconds. Range based on correlation with therapeutic heparin activity range of 0.3 - 0.7 Units/mL. Current interpretive data was last revised on 2023. Blood 08/28/2024 10:0 8 PM CDT 08/28/2024 10:54 PM CDT Narrative [facility] - 08/29/2024 1:01 AM CDT STAT PTT [...] (not from [facility]). us Maria Luisa Escamilla WAREHOUSE CONSULTANT LAB BLOOD ORDERABLES Final Result Performing Organization Address City/[facility]/ZIP Co de Phone Number [facility] [place] [address] * POCT glucose (08/28/2024 7:58 PM CDT) Glucose, POC 154 70 - 199 mg/dL Blood 08/28/2024 7:58 PM CDT 08/28/2024 7:58 PM CDT us Suresh Wyman MD PhD LAB POCT ORDERABLE S - DEVICE Final Result Performing Organization Address [facility]/ZIP Co de Phone Number [facility] [place] [address] * POCT glucose (08/28/2024 4:56 PM CDT) Glucose, POC 132 70 - 199 mg/dL Blood 08/28/2024 4:56 PM CDT 08/28/2024 4:56 PM CDT us Suresh Wyman MD PhD LAB POCT ORDERABLE S - DEVICE Final Result Performing Organization Address [facility] de Phone Number [facility] [place] [address] * POCT glucose (08/28/2024 12:03 PM CDT) Glucose, POC 157 70 - 199 mg/dL Blood 08/28/2024 12:0 3 PM CDT 08/28/2024 12:03 PM CDT us Suresh Wyman MD PhD LAB POCT ORDERABLE S - DEVICE Final Result Performing Organization Address [facility] de Phone Number [facility] [place] [address] * POCT glucose (08/28/2024 7:45 AM CDT) Glucose, POC 113 70 - 199 mg/dL Blood 08/28/2024 7:45 AM CDT 08/28/2024 7:45 AM CDT us Suresh Wyman MD PhD LAB POCT ORDERABLE S - DEVICE Final Result Performing Organization Address [facility] de Phone Number [facility] [place] [address] * POCT glucose (08/28/2024 5:39 AM CDT) Glucose, POC 107 70 - 199 mg/dL Blood 08/28/2024 5:39 AM CDT 08/28/2024 5:39 AM CDT us Suresh Wyman MD PhD LAB POCT ORDERABLE S - DEVICE Final Result Performing Organization Address City/[facility]/ZIP Co de Phone Number [facility] [place] [address] * Lactate (08/28/2024 3:06 AM CDT) Lactate 1.3 0.7 - 2.0 mmol/L Blood 08/28/2024 3:06 AM CDT 08/28/2024 4:18 AM CDT us Belen Maldonado WAREHOUSE CONSULTANT LAB BLOOD ORDERABLES Final Result Performing Organization Address [facility] Co de Phone Number [facility] [place] [address] * eGFR (08/28/2024 3:06 AM CDT) eGFR 66 >=60 mL/min/1. 73 m2 Comment: [...] MD LAB BLOOD ORDERABLES F inal Result [facility] [place] [address] * (ABNORMAL) Differential, auto (08/28/2024 3:06 AM CDT) Neutrophil abs 5.0 1.5 - 6.5 K/cumm Imm gran abs 0.2(H) 0.0 - 0.1 K/cumm [facility] Lymphocyte abs 0.9 0.8 - 3.3 K/cumm [facility] Monocyte abs 1.0(H) 0.2 - 0.8 K/cumm [facility] Eosinophil abs 0.8(H) 0.0 - 0.5 K/cumm [facility] Basophil abs 0.1 0.0 - 0.1 K/cumm [facility] Neutrophil pct 63.0 % [facility] Comment: Interpretive Data Percent cell count reference ranges are not reported, since discordance with absolute values may lead to misinterpretation of CBC data. Current Interpretive Data was last revised on 2017. Imm gran pct 1.9 % [facility] Comment: Interpretive Data Percent cell count reference ranges are not reported, since discordance with absolute values may lead to misinterpretation of CBC data. Current Interpretive Data was last revised on 2017. Lymphocyte pct 11.2 % [facility] Comment: Interpretive Data Percent cell count reference ranges are not reported, since discordance with absolute values may lead to misinterpretation of CBC data. Current Interpretive Data was last revised on 2017. Monocyte pct 12.1 % [facility] Comment: Interpretive Data Percent cell count reference ranges are not reported, since discordance with absolute values may lead to misinterpretation of CBC data. Current Interpretive Data was last revised on 2017. Eosinophil pct 10.4 % [facility] Comment: Interpretive Data Percent cell count reference ranges are not reported, since discordance with absolute values may lead to misinterpretation of CBC data. Current Interpretive Data was last revised on 2017. Basophil pct 1.4 % [facility] Comment: Interpretive Data Percent cell count reference ranges are not reported, since discordance with absolute values may lead to misinterpretation of CBC data. Current Interpretive Data was last revised on 2017. Blood 08/28/2024 3:06 AM CDT 08/28/2024 4:19 AM CDT Nany Lorenz MD LAB BLOOD ORDERABLES F inal Result Performing Organization Address City/[facility]/ZIP Co de Phone Number [facility] [place] [address] * (ABNORMAL) CBC with auto differential (08/28/2024 3:06 AM CDT) [facility] WBC 8.0 3.8 - 9.9 K/cumm Hgb 10.6(L) 13.0 - 17.5 g/dL [facility] Hct 31.7(L) 38.9 - 50.3 % [facility] Plt 252 150 - 400 K/cumm [facility] MPV 10.2 9.1 - 12.3 fL [facility] RBC 3.48(L) 4.30 - 5.80 M/cumm [facility] MCV 91.1 81.3 - 96.4 fL [facility] MCH 30.5 27.1 - 33.3 pg [facility] MCHC 33.4 32.3 - 35.7 g/dL [facility] RDW CV 14.3 11.1 - 14.9 % [facility] RDW SD 47.2 35.7 - 48.1 fL [facility] NRBC abs 0.00 0.00 - 0.01 K/cumm [facility] Blood 08/28/2024 3:06 AM CDT 08/28/2024 4:19 AM CDT Nany Lorenz MD LAB BLOOD ORDERABLES F inal Result Performing Organization Address [facility]/ZIP Co de Phone Number [facility] [place] [address] * (ABNORMAL) Protime-INR (08/28/2024 3:06 AM CDT) [facility] PT 16.2(H) 9.7 - 13.0 sec INR 1.49(H) 0.90 - 1.20 [facility] Comment: Interpretive data Oral anticoagulant therapeutic ranges: Venous thromboembolism prophylaxis or treatment: 2.0-3.0 CARDIOLOGY Standard range: 2.0-3.0 High-intensity range: 2.5-3.5 Refer to indication-specific guidelines for appropriate target ranges for prosthetic heart valve replacement. Current interpretive data was last revised on 2019. Blood 08/28/2024 3:06 AM CDT 08/28/2024 4:22 AM CDT Nany Lorenz MD LAB BLOOD ORDERABLES F inal Result Performing Organization Address [facility] Co de Phone Number [facility] [place] [address] * Magnesium (08/28/2024 3:06 AM CDT) [facility] Magnesium 1.8 1.4 - 2.5 mg/dL Blood 08/28/2024 3:06 AM CDT 08/28/2024 4:19 AM CDT Nany Lorenz MD LAB BLOOD ORDERABLES F inal Result Performing Organization Address City/[facility] Co de Phone Number [facility] [place] [address] * (ABNORMAL) Basic metabolic panel (08/28/2024 3:06 AM CDT) [facility] Sodium 142 135 - 145 mmol/L Potassium, pl 4.2 3.3 - 4.9 mmol/L [facility] Chloride 105 97 - 110 mmol/L [facility] CO2 30 22 - 32 mmol/L [facility] Anion gap 7 2 - 15 mmol/L [facility] BUN 7 6 - 25 mg/dL [facility] Creatinine 1.16 0.80 - 1.30 mg/dL [facility] Glucose 104 70 - 199 mg/dL [facility] Comment: Interpretive Data Fasting glucose >/= 126 [...] 2022. Calcium 8.4(L) 8.5 - 10.3 mg/dL [facility] Blood 08/28/2024 3:06 AM CDT 08/28/2024 4:19 AM CDT us Nany Lorenz MD LAB BLOOD ORDERABLES F inal Result [facility] [place] [address] * POCT glucose (08/28/2024 2:51 AM CDT) Glucose, POC 100 70 - 199 mg/dL Blood 08/28/2024 2:51 AM CDT 08/28/2024 2:51 AM CDT us Suresh Wyman MD PhD LAB POCT ORDERABLE S - DEVICE Final Result Performing Organization Address City/[facility]/ZIP Co de Phone Number [facility] [place] [address] * POCT glucose (08/27/2024 11:09 PM CDT) Glucose, POC 122 70 - 199 mg/dL Blood 08/27/2024 11:0 9 PM CDT 08/27/2024 11:09 PM CDT us Suresh Wyman MD PhD LAB POCT ORDERABLE S - DEVICE Final Result Performing Organization Address [facility] Co de Phone Number [facility] [place] [address] * POCT glucose (08/27/2024 7:46 PM CDT) Glucose, POC 155 70 - 199 mg/dL Blood 08/27/2024 7:46 PM CDT 08/27/2024 7:46 PM CDT us Suresh Wyman MD PhD LAB POCT ORDERABLE S - DEVICE Final Result Performing Organization Address [facility] de Phone Number [facility] [place] [address] * POCT glucose (08/27/2024 4:57 PM CDT) Glucose, POC 170 70 - 199 mg/dL Blood 08/27/2024 4:57 PM CDT 08/27/2024 4:57 PM CDT us Suresh Wyman MD PhD LAB POCT ORDERABLE S - DEVICE Final Result Performing Organization Address [facility] de Phone Number [place] [address] * POCT glucose (08/27/2024 10:58 AM CDT) Glucose, POC 122 70 - 199 mg/dL Blood 08/27/2024 10:5 8 AM CDT 08/27/2024 10:58 AM CDT us Suresh Wyman MD PhD LAB POCT ORDERABLE S - DEVICE Final Result Performing Organization Address [facility] [place] [address] * aPTT (08/27/2024 10:28 AM CDT) aPTT 37 28 - 38 sec Comment: Interpretive Data Heparin therapeutic range: 66.0 - 100.0 seconds. Range based on correlation with therapeutic heparin activity range of 0.3 - 0.7 Units/mL. Current interpretive data was last revised on 2023. Blood 08/27/2024 10:2 8 AM CDT 08/27/2024 10:56 AM CDT Narrative [facility] - 08/27/2024 11:23 AM CDT Baseline prior to warfarin initiation. Maria Luisa Escamilla NP LAB BLOOD ORDERABLES Final Result Performing Organization Address [facility] de Phone Number [facility] [place] [address] * (ABNORMAL) Protime-INR (08/27/2024 10:28 AM CDT) PT 19.0(H) 9.7 - 13.0 sec INR 1.74(H) 0.90 - 1.20 [facility] Comment: Interpretive data Oral anticoagulant therapeutic ranges: Venous thromboembolism prophylaxis or treatment: 2.0-3.0 CARDIOLOGY Standard range: 2.0-3.0 High-intensity range: 2.5-3.5 Refer to indication-specific guidelines for appropriate target ranges for prosthetic heart valve replacement. Current interpretive data was last revised on 2019. Blood 08/27/2024 10:2 8 AM CDT 08/27/2024 10:56 AM CDT Narrative [facility] - 08/27/2024 11:23 AM CDT Baseline prior to warfarin initiation. Maria Luisa Escamilla NP LAB BLOOD ORDERABLES Final Result [facility] [place] [address] * (ABNORMAL) CBC without differential (08/27/2024 10:28 AM CDT) WBC 6.4 3.8 - 9.9 K/cumm Hgb 9.8(L) 13.0 - 17.5 g/dL [facility] Hct 29.7(L) 38.9 - 50.3 % [facility] Plt 208 150 - 400 K/cumm [facility] MPV 10.1 9.1 - 12.3 fL [facility] RBC 3.23(L) 4.30 - 5.80 M/cumm [facility] MCV 92.0 81.3 - 96.4 fL [facility] MCH 30.3 27.1 - 33.3 pg [facility] MCHC 33.0 32.3 - 35.7 g/dL [facility] RDW CV 14.1 11.1 - 14.9 % [facility] RDW SD 47.4 35.7 - 48.1 fL [facility] NRBC abs 0.00 0.00 - 0.01 K/cumm [facility] Blood 08/27/2024 10:2 8 AM CDT 08/27/2024 10:56 AM CDT Narrative [facility] - 08/27/2024 11:04 AM CDT Baseline prior to warfarin initiation. Maria Luisa Escamilla WAREHOUSE CONSULTANT LAB BLOOD ORDERABLES Final Result [facility] [place] [address] * POCT glucose (08/27/2024 7:26 AM CDT) Glucose, POC 87 70 - 199 mg/dL Blood 08/27/2024 7:26 AM CDT 08/27/2024 7:26 AM CDT us Suresh Wyman MD PhD LAB POCT ORDERABLE S - DEVICE Final Result Performing Organization Address [facility] Co de Phone Number [facility] [place] [address] * POCT glucose (08/27/2024 4:40 AM CDT) Pathologist [facility] [place] Glucose, POC 74 70 - 199 mg/dL Blood 08/27/2024 4:40 AM CDT 08/27/2024 4:40 AM CDT us Suresh Wyman MD PhD LAB POCT ORDERABLE S - DEVICE Final Result Performing Organization Address [facility] de Phone Number [facility] [place] [address] * Lactate (08/27/2024 4:39 AM CDT) [facility] Lactate 1.0 0.7 - 2.0 mmol/L Blood 08/27/2024 4:39 AM CDT 08/27/2024 5:38 AM CDT us Belen Maldonado WAREHOUSE CONSULTANT LAB BLOOD ORDERABLES Final Result Performing Organization Address [facility] de Phone Number [facility] [place] [address] * (ABNORMAL) eGFR (08/27/2024 4:39 AM CDT) eGFR 56(L) >=60 mL/min/1. 73 m2 Comment: [...] MD LAB BLOOD ORDERABLES F inal Result [facility] [place] [address] * (ABNORMAL) Differential, auto (08/27/2024 4:39 AM CDT) Neutrophil abs 4.3 1.5 - 6.5 K/cumm Imm gran abs 0.1 0.0 - 0.1 K/cumm [facility] Lymphocyte abs 1.0 0.8 - 3.3 K/cumm [facility] Monocyte abs 1.0(H) 0.2 - 0.8 K/cumm [facility] Eosinophil abs 0.7(H) 0.0 - 0.5 K/cumm [facility] Basophil abs 0.1 0.0 - 0.1 K/cumm [facility] Neutrophil pct 60.0 % [facility] Comment: Interpretive Data Percent cell count reference ranges are not reported, since discordance with absolute values may lead to misinterpretation of CBC data. Current Interpretive Data was last revised on 2017. Imm gran pct 1.3 % [facility] Comment: Interpretive Data Percent cell count reference ranges are not reported, since discordance with absolute values may lead to misinterpretation of CBC data. Current Interpretive Data was last revised on 2017. Lymphocyte pct 13.4 % [facility] Comment: Interpretive Data Percent cell count reference ranges are not reported, since discordance with absolute values may lead to misinterpretation of CBC data. Current Interpretive Data was last revised on 2017. Monocyte pct 14.0 % [facility] Comment: Interpretive Data Percent cell count reference ranges are not reported, since discordance with absolute values may lead to misinterpretation of CBC data. Current Interpretive Data was last revised on 2017. Eosinophil pct 10.3 % [facility] Comment: Interpretive Data Percent cell count reference ranges are not reported, since discordance with absolute values may lead to misinterpretation of CBC data. Current Interpretive Data was last revised on 2017. Basophil pct 1.0 % [facility] Comment: Interpretive Data Percent cell count reference ranges are not reported, since discordance with absolute values may lead to misinterpretation of CBC data. Current Interpretive Data was last revised on 2017. Blood 08/27/2024 4:39 AM CDT 08/27/2024 5:38 AM CDT us Nany Lorenz MD LAB BLOOD ORDERABLES F inal Result [facility] [place] [address] * (ABNORMAL) CBC with auto differential (08/27/2024 4:39 AM CDT) WBC 7.1 3.8 - 9.9 K/cumm Hgb 9.7(L) 13.0 - 17.5 g/dL [facility] Hct 29.4(L) 38.9 - 50.3 % [facility] Plt 233 150 - 400 K/cumm [facility] MPV 10.2 9.1 - 12.3 fL [facility] RBC 3.23(L) 4.30 - 5.80 M/cumm [facility] MCV 91.0 81.3 - 96.4 fL [facility] MCH 30.0 27.1 - 33.3 pg [facility] MCHC 33.0 32.3 - 35.7 g/dL [facility] RDW CV 14.0 11.1 - 14.9 % [facility] RDW SD 46.6 35.7 - 48.1 fL [facility] NRBC abs 0.00 0.00 - 0.01 K/cumm [facility] Blood 08/27/2024 4:39 AM CDT 08/27/2024 5:38 AM CDT Nany Lorenz MD LAB BLOOD ORDERABLES F inal Result Performing Organization Address [facility] de Phone Number [facility] [place] [address] * (ABNORMAL) Protime-INR (08/27/2024 4:39 AM CDT) PT 18.6(H) 9.7 - 13.0 sec INR 1.70(H) 0.90 - 1.20 [facility] Comment: Interpretive data Oral anticoagulant therapeutic ranges: Venous thromboembolism prophylaxis or treatment: 2.0-3.0 CARDIOLOGY Standard range: 2.0-3.0 High-intensity range: 2.5-3.5 Refer to indication-specific guidelines for appropriate target ranges for prosthetic heart valve replacement. Current interpretive data was last revised on 2019. Blood 08/27/2024 4:39 AM CDT 08/27/2024 6:01 AM CDT us Nany Lorenz MD LAB BLOOD ORDERABLES F inal Result Performing Organization Address [facility] Co de Phone Number [facility] [place] [address] * Magnesium (08/27/2024 4:39 AM CDT) Magnesium 1.8 1.4 - 2.5 mg/dL Blood 08/27/2024 4:39 AM CDT 08/27/2024 5:38 AM CDT Nany Lorenz MD LAB BLOOD ORDERABLES F inal Result [facility] [place] [address] * (ABNORMAL) Basic metabolic panel (08/27/2024 4:39 AM CDT) Sodium 143 135 - 145 mmol/L Potassium, pl 3.7 3.3 - 4.9 mmol/L [facility] Chloride 106 97 - 110 mmol/L [facility] CO2 29 22 - 32 mmol/L [facility] Anion gap 8 2 - 15 mmol/L [facility] BUN 11 6 - 25 mg/dL [facility] Creatinine 1.33(H) 0.80 - 1.30 mg/dL [facility] Glucose 169 70 - 199 mg/dL [facility] Comment: Interpretive Data Fasting glucose >/= 126 [...] 2022. Calcium 8.2(L) 8.5 - 10.3 mg/dL [facility] Blood 08/27/2024 4:39 AM CDT 08/27/2024 5:38 AM CDT us Nany Lorenz MD LAB BLOOD ORDERABLES F inal Result Performing Organization Address City/[facility]/ZIP Co de Phone Number [facility] [place] [address] * POCT glucose (08/27/2024 12:39 AM CDT) Glucose, POC 133 70 - 199 mg/dL Blood 08/27/2024 12:3 9 AM CDT 08/27/2024 12:39 AM CDT us Suresh Wyman MD PhD LAB POCT ORDERABLE S - DEVICE Final Result Performing Organization Address [facility] de Phone Number [facility] [place] [address] * (ABNORMAL) POCT glucose (08/27/2024 12:07 AM CDT) Glucose, POC 54(C) 70 - 199 mg/dL Blood 08/27/2024 12:0 7 AM CDT 08/27/2024 12:07 AM CDT us Suresh Wyman MD PhD LAB POCT ORDERABLE S - DEVICE Final Result Performing Organization Address [facility] de Phone Number [facility] [place] [address] * POCT glucose (08/26/2024 8:05 PM CDT) Glucose, POC 70 70 - 199 mg/dL Blood 08/26/2024 8:05 PM CDT 08/26/2024 8:05 PM CDT us Suresh Wyman MD PhD LAB POCT ORDERABLE S - DEVICE Final Result Performing Organization Address [facility] de Phone Number [place] [address] * POCT glucose (08/26/2024 4:41 PM CDT) Glucose, POC 72 70 - 199 mg/dL Blood 08/26/2024 4:41 PM CDT 08/26/2024 4:41 PM CDT us Suresh Wyman MD PhD LAB POCT ORDERABLE S - DEVICE Final Result Performing Organization Address City/[facility]/ZIP Co de Phone Number [facility] [place] [address] * POCT glucose (08/26/2024 11:54 AM CDT) Glucose, POC 91 70 - 199 mg/dL Blood 08/26/2024 11:5 4 AM CDT 08/26/2024 11:54 AM CDT us Suresh Wyman MD PhD LAB POCT ORDERABLE S - DEVICE Final Result Performing Organization Address [facility] Co de Phone Number [facility] [place] [address] * POCT glucose (08/26/2024 8:01 AM CDT) Glucose, POC 76 70 - 199 mg/dL Blood 08/26/2024 8:01 AM CDT 08/26/2024 8:01 AM CDT us Suresh Wyman MD PhD LAB POCT ORDERABLE S - DEVICE Final Result Performing Organization Address City/[facility]/ZIP Co de Phone Number [facility] [place] [address] * Lactate (08/26/2024 4:06 AM CDT) Lactate 1.7 0.7 - 2.0 mmol/L Blood 08/26/2024 4:06 AM CDT 08/26/2024 4:53 AM CDT us Belen Maldonado WAREHOUSE CONSULTANT LAB BLOOD ORDERABLES Final Result Performing Organization Address City/[facility]/ZIP Co de Phone Number [place] [address] * eGFR (08/26/2024 4:06 AM CDT) eGFR [...] MD LAB BLOOD ORDERABLES F inal Result [facility] [place] [address] * (ABNORMAL) Differential, auto (08/26/2024 4:06 AM CDT) Neutrophil abs 4.1 1.5 - 6.5 K/cumm Imm gran abs 0.1 0.0 - 0.1 K/cumm [facility] Lymphocyte abs 0.9 0.8 - 3.3 K/cumm [facility] Monocyte abs 1.0(H) 0.2 - 0.8 K/cumm [facility] Eosinophil abs 0.7(H) 0.0 - 0.5 K/cumm [facility] Basophil abs 0.1 0.0 - 0.1 K/cumm [facility] Neutrophil pct 59.6 % [facility] Comment: Interpretive Data Percent cell count reference ranges are not reported, since discordance with absolute values may lead to misinterpretation of CBC data. Current Interpretive Data was last revised on 2017. Imm gran pct 1.3 % [facility] Comment: Interpretive Data Percent cell count reference ranges are not reported, since discordance with absolute values may lead to misinterpretation of CBC data. Current Interpretive Data was last revised on 2017. Lymphocyte pct 12.9 % [facility] Comment: Interpretive Data Percent cell count reference ranges are not reported, since discordance with absolute values may lead to misinterpretation of CBC data. Current Interpretive Data was last revised on 2017. Monocyte pct 14.7 % [facility] Comment: Interpretive Data Percent cell count reference ranges are not reported, since discordance with absolute values may lead to misinterpretation of CBC data. Current Interpretive Data was last revised on 2017. Eosinophil pct 10.0 % [facility] Comment: Interpretive Data Percent cell count reference ranges are not reported, since discordance with absolute values may lead to misinterpretation of CBC data. Current Interpretive Data was last revised on 2017. Basophil pct 1.5 % [facility] Comment: Interpretive Data Percent cell count reference ranges are not reported, since discordance with absolute values may lead to misinterpretation of CBC data. Current Interpretive Data was last revised on 2017. Blood 08/26/2024 4:06 AM CDT 08/26/2024 4:54 AM CDT us Nany Lorenz MD LAB BLOOD ORDERABLES F inal Result [facility] [place] [address] * POCT glucose (08/26/2024 4:06 AM CDT) Glucose, POC 74 70 - 199 mg/dL Blood 08/26/2024 4:06 AM CDT 08/26/2024 4:06 AM CDT us Suresh Wyman MD PhD LAB POCT ORDERABLE S - DEVICE Final Result Performing Organization Address [facility] Co de Phone Number [facility] [place] [address] * (ABNORMAL) CBC with auto differential (08/26/2024 4:06 AM CDT) Pathologist [facility] [place] WBC 6.8 3.8 - 9.9 K/cumm Hgb 10.1(L) 13.0 - 17.5 g/dL [facility] Hct 31.0(L) 38.9 - 50.3 % [facility] Plt 225 150 - 400 K/cumm [facility] MPV 10.2 9.1 - 12.3 fL [facility] RBC 3.35(L) 4.30 - 5.80 M/cumm [facility] MCV 92.5 81.3 - 96.4 fL [facility] MCH 30.1 27.1 - 33.3 pg [facility] MCHC 32.6 32.3 - 35.7 g/dL [facility] RDW CV 14.0 11.1 - 14.9 % [facility] RDW SD 47.3 35.7 - 48.1 fL [facility] NRBC abs 0.00 0.00 - 0.01 K/cumm [facility] Blood 08/26/2024 4:06 AM CDT 08/26/2024 4:54 AM CDT us Nany Lorenz MD LAB BLOOD ORDERABLES F inal Result Performing Organization Address City/[facility]/ZIP Co de Phone Number [facility] [place] [address] * (ABNORMAL) Protime-INR (08/26/2024 4:06 AM CDT) PT 20.7(H) 9.7 - 13.0 sec INR 1.89(H) 0.90 - 1.20 [facility] Comment: Interpretive data Oral anticoagulant therapeutic ranges: Venous thromboembolism prophylaxis or treatment: 2.0-3.0 CARDIOLOGY Standard range: 2.0-3.0 High-intensity range: 2.5-3.5 Refer to indication-specific guidelines for appropriate target ranges for prosthetic heart valve replacement. Current interpretive data was last revised on 2019. Blood 08/26/2024 4:06 AM CDT 08/26/2024 5:03 AM CDT Nany Lorenz MD LAB BLOOD ORDERABLES F inal Result Performing Organization Address [facility]/ZIP Co de Phone Number [facility] [place] [address] * Magnesium (08/26/2024 4:06 AM CDT) [facility] Magnesium 1.6 1.4 - 2.5 mg/dL Blood 08/26/2024 4:06 AM CDT 08/26/2024 4:53 AM CDT Nany Lorenz MD LAB BLOOD ORDERABLES F inal Result Performing Organization Address [facility] Co de Phone Number [facility] [place] [address] * (ABNORMAL) Basic metabolic panel (08/26/2024 4:06 AM CDT) [facility] Sodium 144 135 - 145 mmol/L Potassium, pl 3.8 3.3 - 4.9 mmol/L [facility] Chloride 106 97 - 110 mmol/L [facility] CO2 29 22 - 32 mmol/L [facility] Anion gap 9 2 - 15 mmol/L [facility] BUN 11 6 - 25 mg/dL [facility] Creatinine 1.18 0.80 - 1.30 mg/dL [facility] Glucose 77 70 - 199 mg/dL [facility] Comment: Interpretive Data Fasting glucose >/= 126 [...] 2022. Calcium 8.2(L) 8.5 - 10.3 mg/dL [facility] Blood 08/26/2024 4:06 AM CDT 08/26/2024 4:53 AM CDT us Nany Lorenz MD LAB BLOOD ORDERABLES F inal Result Performing Organization Address [facility] Co de Phone Number [facility] [place] [address] * POCT glucose (08/25/2024 11:34 PM CDT) Glucose, POC 91 70 - 199 mg/dL Comment:Glu2: SANKET/ Notified Glucose comment 1 Glu2: SANKET/ Notified [facility] Blood 08/25/2024 11:3 4 PM CDT 08/25/2024 11:34 PM CDT us Suresh Wyman MD PhD LAB POCT ORDERABLE S - DEVICE Final Result Performing Organization Address [facility] Co de Phone Number [facility] [place] [address] * POCT glucose (08/25/2024 8:12 PM CDT) Glucose, POC 94 70 - 199 mg/dL Comment:Glu2: SANKET/ Notified Glucose comment 1 Glu2: SANKET/ Notified [facility] Blood 08/25/2024 8:12 PM CDT 08/25/2024 8:12 PM CDT us Suresh Wyman MD PhD LAB POCT ORDERABLE S - DEVICE Final Result Performing Organization Address [facility] de Phone Number [facility] [place] [address] * POCT glucose (08/25/2024 4:48 PM CDT) Glucose, POC 122 70 - 199 mg/dL Blood 08/25/2024 4:48 PM CDT 08/25/2024 4:48 PM CDT us Suresh Wyman MD PhD LAB POCT ORDERABLE S - DEVICE Final Result Performing Organization Address [facility] de Phone Number [facility] [place] [address] * POCT glucose (08/25/2024 11:40 AM CDT) Glucose, POC 127 70 - 199 mg/dL Blood 08/25/2024 11:4 0 AM CDT 08/25/2024 11:40 AM CDT us Suresh Wyman MD PhD LAB POCT ORDERABLE S - DEVICE Final Result Performing Organization Address [facility] de Phone Number [facility] [place] [address] * POCT glucose (08/25/2024 9:08 AM CDT) Glucose, POC 95 70 - 199 mg/dL Blood 08/25/2024 9:08 AM CDT 08/25/2024 9:08 AM CDT us Suresh Wyman MD PhD LAB POCT ORDERABLE S - DEVICE Final Result Performing Organization Address [facility]/ZIP Co de Phone Number [facility] [place] [address] * Lactate (08/24/2024 8:13 PM CDT) Lactate 1.0 0.7 - 2.0 mmol/L Blood 08/24/2024 8:13 PM CDT 08/24/2024 8:28 PM CDT us Nany Lorenz MD LAB BLOOD ORDERABLES F inal Result Performing Organization Address [facility] de Phone Number [facility] [place] [address] * eGFR (08/24/2024 8:13 PM CDT) eGFR [...] ORDERABLES F inal Result Performing Organization Address [facility] Co de Phone Number [facility] [place] [address] * (ABNORMAL) Differential, auto (08/24/2024 8:13 PM CDT) Neutrophil abs 5.3 1.5 - 6.5 K/cumm Imm gran abs 0.1 0.0 - 0.1 K/cumm [facility] Lymphocyte abs 0.6(L) 0.8 - 3.3 K/cumm [facility] Monocyte abs 1.0(H) 0.2 - 0.8 K/cumm [facility] Eosinophil abs 0.6(H) 0.0 - 0.5 K/cumm [facility] Basophil abs 0.1 0.0 - 0.1 K/cumm [facility] Neutrophil pct 69.4 % [facility] Comment: Interpretive Data Percent cell count reference ranges are not reported, since discordance with absolute values may lead to misinterpretation of CBC data. Current Interpretive Data was last revised on 2017. Imm gran pct 0.8 % [facility] Comment: Interpretive Data Percent cell count reference ranges are not reported, since discordance with absolute values may lead to misinterpretation of CBC data. Current Interpretive Data was last revised on 2017. Lymphocyte pct 8.0 % [facility] Comment: Interpretive Data Percent cell count reference ranges are not reported, since discordance with absolute values may lead to misinterpretation of CBC data. Current Interpretive Data was last revised on 2017. Monocyte pct 13.6 % [facility] Comment: Interpretive Data Percent cell count reference ranges are not reported, since discordance with absolute values may lead to misinterpretation of CBC data. Current Interpretive Data was last revised on 2017. Eosinophil pct 7.4 % [facility] Comment: Interpretive Data Percent cell count reference ranges are not reported, since discordance with absolute values may lead to misinterpretation of CBC data. Current Interpretive Data was last revised on 2017. Basophil pct 0.8 % [facility] Comment: Interpretive Data Percent cell count reference ranges are not reported, since discordance with absolute values may lead to misinterpretation of CBC data. Current Interpretive Data was last revised on 2017. Blood 08/24/2024 8:13 PM CDT 08/24/2024 8:21 PM CDT us Nany Lorenz MD LAB BLOOD ORDERABLES F inal Result Performing Organization Address [facility] Co de Phone Number [facility] [place] [address] * (ABNORMAL) CBC with auto differential (08/24/2024 8:13 PM CDT) Pathologist [facility] [place] WBC 7.6 3.8 - 9.9 K/cumm Hgb 10.1(L) 13.0 - 17.5 g/dL [facility] Hct 30.4(L) 38.9 - 50.3 % [facility] Plt 204 150 - 400 K/cumm [facility] MPV 10.5 9.1 - 12.3 fL [facility] RBC 3.38(L) 4.30 - 5.80 M/cumm [facility] MCV 89.9 81.3 - 96.4 fL [facility] MCH 29.9 27.1 - 33.3 pg [facility] MCHC 33.2 32.3 - 35.7 g/dL [facility] RDW CV 13.8 11.1 - 14.9 % [facility] RDW SD 45.3 35.7 - 48.1 fL [facility] NRBC abs 0.00 0.00 - 0.01 K/cumm [facility] Blood 08/24/2024 8:13 PM CDT 08/24/2024 8:21 PM CDT us Nany Lorenz MD LAB BLOOD ORDERABLES F inal Result Performing Organization Address [facility]/ZIP Co de Phone Number [facility] [place] [address] * (ABNORMAL) Protime-INR (08/24/2024 8:13 PM CDT) Pathologist [facility] [place] PT 27.3(H) 9.7 - 13.0 sec INR 2.48(H) 0.90 - 1.20 [facility] Comment: Interpretive data Oral anticoagulant therapeutic ranges: Venous thromboembolism prophylaxis or treatment: 2.0-3.0 CARDIOLOGY Standard range: 2.0-3.0 High-intensity range: 2.5-3.5 Refer to indication-specific guidelines for appropriate target ranges for prosthetic heart valve replacement. Current interpretive data was last revised on 2019. Blood 08/24/2024 8:13 PM CDT 08/24/2024 8:27 PM CDT Nany Lorenz MD LAB BLOOD ORDERABLES F inal Result Performing Organization Address [facility] Co de Phone Number [facility] [place] [address] * (ABNORMAL) Magnesium (08/24/2024 8:13 PM CDT) [facility] Magnesium 1.2(L) 1.4 - 2.5 mg/dL Blood 08/24/2024 8:13 PM CDT 08/24/2024 8:28 PM CDT Nany Lorenz MD LAB BLOOD ORDERABLES F inal Result Performing Organization Address [facility]/ZIP Co de Phone Number [facility] [place] [address] * (ABNORMAL) Basic metabolic panel (08/24/2024 8:13 PM CDT) [facility] Sodium 139 135 - 145 mmol/L Potassium, pl 3.8 3.3 - 4.9 mmol/L [facility] Chloride 102 97 - 110 mmol/L [facility] CO2 28 22 - 32 mmol/L [facility] Anion gap 9 2 - 15 mmol/L [facility] BUN 14 6 - 25 mg/dL [facility] Creatinine 1.25 0.80 - 1.30 mg/dL [facility] Glucose 169 70 - 199 mg/dL [facility] Comment: Interpretive Data Fasting glucose >/= 126 [...] 2022. Calcium 7.8(L) 8.5 - 10.3 mg/dL [facility] Blood 08/24/2024 8:13 PM CDT 08/24/2024 8:28 PM CDT us Nany Lorenz MD LAB BLOOD ORDERABLES F inal Result Performing Organization Address [facility]/ZIP Co de Phone Number [facility] [place] [address] * POCT glucose (08/24/2024 8:12 PM CDT) [facility] Glucose, POC 159 70 - 199 mg/dL Blood 08/24/2024 8:12 PM CDT 08/24/2024 8:12 PM CDT us Suresh Wyman MD PhD LAB POCT ORDERABLE S - DEVICE Final Result Performing Organization Address [facility]/ZIP Co de Phone Number [facility] [place] [address] * (ABNORMAL) C. difficile testing Stool (08/24/2024 7:01 PM CDT) [facility] Result Positive Negative Toxin Result Positive Negative [facility] C. diff result Positive, free toxin(A) Negative, free toxin [facility] C. diff interp Toxigenic Clostridioides (Clostridium) difficile detected. Analysis was performed using a two-step methodology using glutamate dehydrogenase antigen detection followed by detection of C. difficile toxin(s). [facility] Stool 08/24/2024 7:01 PM CDT 08/24/2024 8:43 PM CDT Narrative [facility] - 08/24/2024 10:35 PM CDT Testing for C. difficile is not recommended within 4 days of a negative result, 10 days of a positive, or 24 hours after laxative administration. If this order is clinically indicated, contact the lab and enter the passcode to complete this order.->[id number] Belen Maldonado NP LAB MICROBIOLOGY - GENERAL ORDERABLES Final Result Performing Organization Address City/[facility]/ZIP Co de Phone Number [facility] [place] [address] * (ABNORMAL) Infection Prevention VRE Culture Stool Rectum (08/24/2024 7:01 PM CDT) Report Final Report: Enterococcus species, vancomycin resistant (.) Organism ENTEROCOCCUS SPECIES, VANCOMYCIN RESISTANT [facility] Stool (Rectum) 08/24/2024 7: 01 PM CDT 08/24/2024 8:43 PM CDT Narrative [facility] - 08/26/2024 6:01 PM CDT Surveillance culture for Infection Prevention purposes only; results indicate colonization, not infection requiring treatment. Testing performed by [facility] ([phone]). Belen Maldonado NP LAB MICROBIOLOGY - GENERAL ORDERABLES Final Result [place] [address] * Lactate (08/24/2024 6:34 PM CDT) Lactate 1.6 0.7 - 2.0 mmol/L Blood 08/24/2024 6:34 PM CDT 08/24/2024 6:43 PM CDT Belen Maldonado WAREHOUSE CONSULTANT LAB BLOOD ORDERABLES Final Result [facility] [place] [address] * (ABNORMAL) CBC without differential (08/24/2024 6:34 PM CDT) [facility] WBC 8.8 3.8 - 9.9 K/cumm Hgb 10.9(L) 13.0 - 17.5 g/dL [facility] Hct 32.4(L) 38.9 - 50.3 % [facility] Plt 231 150 - 400 K/cumm [facility] MPV 10.3 9.1 - 12.3 fL [facility] RBC 3.64(L) 4.30 - 5.80 M/cumm [facility] MCV 89.0 81.3 - 96.4 fL [facility] MCH 29.9 27.1 - 33.3 pg [facility] MCHC 33.6 32.3 - 35.7 g/dL [facility] RDW CV 13.7 11.1 - 14.9 % [facility] RDW SD 44.8 35.7 - 48.1 fL [facility] NRBC abs 0.00 0.00 - 0.01 K/cumm [facility] Blood 08/24/2024 6:34 PM CDT 08/24/2024 6:43 PM CDT Belen Maldonado WAREHOUSE CONSULTANT LAB BLOOD ORDERABLES Final Result [facility] [place] [address] * POCT glucose (08/24/2024 4:51 PM CDT) Glucose, POC 179 70 - 199 mg/dL Blood 08/24/2024 4:51 PM CDT 08/24/2024 4:51 PM CDT Suresh Wyman MD PhD LAB POCT ORDERABLE S - DEVICE Final Result Performing Organization Address [facility] de Phone Number [place] [address] * Type and screen (08/24/2024 12:03 PM CDT) [facility] Annetta, indirect Negative Comment:Patient has previous antibody history ABO Rh O Negative [facility] Blood 08/24/2024 12:0 3 PM CDT 08/24/2024 12:31 PM CDT Narrative [facility] - 08/24/2024 1:24 PM CDT Has the patient had Daratumumab or Isatuximab in the past 6 months?->Unknown Belen Maldonado WAREHOUSE CONSULTANT LAB BLOOD BANK TEST ORDERAB LES Final Result Performing Organization Address [facility] de Phone Number [place] [address] * POCT glucose (08/24/2024 11:16 AM CDT) [facility] Glucose, POC 167 70 - 199 mg/dL Blood 08/24/2024 11:1 6 AM CDT 08/24/2024 11:16 AM CDT Suresh Wyman MD PhD LAB POCT ORDERABLE S - DEVICE Final Result Performing Organization Address [facility] de Phone Number [place] [address] * (ABNORMAL) Protime-INR (08/24/2024 10:11 AM CDT) [facility] PT 25.8(H) 9.7 - 13.0 sec INR 2.35(H) 0.90 - 1.20 [facility] Comment: Interpretive data Oral anticoagulant therapeutic ranges: Venous thromboembolism prophylaxis or treatment: 2.0-3.0 CARDIOLOGY Standard range: 2.0-3.0 High-intensity range: 2.5-3.5 Refer to indication-specific guidelines for appropriate target ranges for prosthetic heart valve replacement. Current interpretive data was last revised on 2019. Blood 08/24/2024 10:1 1 AM CDT 08/24/2024 10:23 AM CDT Belen Maldonado WAREHOUSE CONSULTANT LAB BLOOD ORDERABLES Final Result Performing Organization Address [facility] Co de Phone Number [facility] [place] [address] * (ABNORMAL) CBC without differential (08/24/2024 10:11 AM CDT) Pathologist [facility] [place] WBC 8.5 3.8 - 9.9 K/cumm Hgb 10.9(L) 13.0 - 17.5 g/dL [facility] Hct 32.7(L) 38.9 - 50.3 % [facility] Plt 202 150 - 400 K/cumm [facility] MPV 10.3 9.1 - 12.3 fL [facility] RBC 3.62(L) 4.30 - 5.80 M/cumm [facility] MCV 90.3 81.3 - 96.4 fL [facility] MCH 30.1 27.1 - 33.3 pg [facility] MCHC 33.3 32.3 - 35.7 g/dL [facility] RDW CV 13.8 11.1 - 14.9 % [facility] RDW SD 45.7 35.7 - 48.1 fL [facility] NRBC abs 0.00 0.00 - 0.01 K/cumm [facility] Blood 08/24/2024 10:1 1 AM CDT 08/24/2024 10:24 AM CDT Belen Maldonado NP LAB BLOOD ORDERABLES Final Result Performing Organization Address City/[facility]/ZIP Co de Phone Number [facility] [place] [address] * Type and screen (08/24/2024 10:11 AM CDT) ABO Rh O Negative Annetta, indirect Negative [facility] Comment:Patient has previous antibody history Blood 08/24/2024 10:1 1 AM CDT 08/24/2024 10:25 AM CDT Narrative [facility] - 08/24/2024 11:16 AM CDT Has the patient had Daratumumab or Isatuximab in the past 6 months?->Unknown us Belen Maldonado WAREHOUSE CONSULTANT LAB BLOOD BANK TEST ORDERAB LES Final Result Performing Organization Address [facility] Co de Phone Number [facility] [place] [address] * POCT glucose (08/24/2024 8:26 AM CDT) Glucose, POC 174 70 - 199 mg/dL Blood 08/24/2024 8:26 AM CDT 08/24/2024 8:26 AM CDT us Suresh Wyman MD PhD LAB POCT ORDERABLE S - DEVICE Final Result Performing Organization Address [facility] Co de Phone Number [facility] [place] [address] * (ABNORMAL) POCT glucose (08/24/2024 2:45 AM CDT) Glucose, POC 205(H) 70 - 199 mg/dL Blood 08/24/2024 2:45 AM CDT 08/24/2024 2:45 AM CDT us Suresh Wyman MD PhD LAB POCT ORDERABLE S - DEVICE Final Result Performing Organization Address [facility] Co de Phone Number [place] [address] * Lactate (08/23/2024 10:17 PM CDT) Lactate 1.1 0.7 - 2.0 mmol/L Blood 08/23/2024 10:1 7 PM CDT 08/23/2024 10:30 PM CDT Anil Holm MD LAB BLOOD ORDERABLES Fi nal Result Performing Organization Address [facility] [place] [place] [address] * (ABNORMAL) Iron profile w/ IBC (08/23/2024 8:32 PM CDT) Iron 39(L) 50 - 150 mcg/dL TIBC 152(L) 250 - 400 mcg/dL [facility] Transferrin saturation 26 20 - 50 % [facility] Blood 08/23/2024 8:32 PM CDT 08/23/2024 8:49 PM CDT Surehs Wyman MD PhD LAB BLOOD ORDERABL ES Final Result Performing Organization Address [facility] Co de Phone Number [facility] [place] [address] * (ABNORMAL) Fibrinogen (08/23/2024 8:32 PM CDT) Fibrinogen 406(H) 170 - 400 mg/dL Blood 08/23/2024 8:32 PM CDT 08/23/2024 8:52 PM CDT Anil Holm MD LAB BLOOD ORDERABLES Fi nal Result Performing Organization Address [facility] Co de Phone Number [facility] [place] [address] * (ABNORMAL) Lactate dehydrogenase (LD) (08/23/2024 8:32 PM CDT) Lactate dehydrogenase (LDH) 261(H) 100 - 250 Units/L Blood 08/23/2024 8:32 PM CDT 08/23/2024 8:49 PM CDT Anil Holm MD LAB BLOOD ORDERABLES Fi nal Result Performing Organization Address [facility] [place] [address] * Troponin I high-sensitivity 4-hour (08/23/2024 7:40 PM CDT) Pathologist [facility] [place] Trop I hs 10 <=35 ng/L Comment: Interpretive Data For further hscTnI resources including the diagnostic algorithm and an aid in interpretation, copy and paste this link: [email or web address].testcatalog.org/show/[email or web address] Current Interpretive Data last revised 2019. Trop I hs delta 0 ng/L [facility] Trop I hs interp Insignificant [facility] Blood 08/23/2024 7:40 PM CDT 08/23/2024 7:52 PM CDT Anil Holm MD LAB BLOOD ORDERABLES Fi nal Result Performing Organization Address [facility] [place] [address] * CT Abdomen Pelvis W WO Contrast [...] * POCT creatinine (08/23/2024 5:44 PM CDT) Creatinine POC 1.1 0.8 - 1.3 mg/dL Blood 08/23/2024 5:44 PM CDT 08/23/2024 5:44 PM CDT Dejan Braxton MD LAB POCT ORDERABLES - DEVICE Final Result [facility] [place] [address] * (ABNORMAL) Urinalysis reflex to microscopic and culture Urine (08/23/2024 5:38 PM CDT) Color, ur Yellow Yellow Clarity, ur Cloudy(A) Clear [facility] Specific gravity, ur 1.017 1.003 - 1.030 [facility] pH, urine 7.0 [facility] Comment: Interpretive Data U rine pH is affected by diet, medications, systemic acid-base disturbances, and renal tubular function. pH may affect urinary stone formation. For example, urine pH below 6.0 may help reduce the tendency for calcium phosphate stones and pH greater than 6.0 may reduce the tendency for uric acid stone formation. Source: [facility] [place] Current Interpretive Data was last revised on 2017 Protein, ur ql 1+(A) Negative [facility] Glucose, ur ql Negative Negative [facility] Ketones, ur Negative Negative [facility] Bilirubin, ur Negative Negative [facility] Blood, ur Negative Negative [facility] Urobilinogen, ur <2.0 <2.0 mg/dL [facility] Nitrite, ur Negative Negative [facility] Leukocyte esterase, ur Negative Negative [facility] UA reflex comment Reflex to microscopic UA will be performed. [facility] Urine 08/23/2024 5:38 PM CDT 08/23/2024 5:50 PM CDT Anil Holm MD LAB MICROBIOLOGY - GENE RAL ORDERABLES Final Result Performing Organization Address [facility] de Phone Number [facility] [place] [address] * (ABNORMAL) Urinalysis, microscopic only (08/23/2024 5:38 PM CDT) WBC, ur 0-5 0 - 5 /HPF RBC, ur 3-5(A) 0 - 2 /HPF [facility] Epithelial cells, squamous, ur 1-5 0 - 5 /HPF [facility] Bacteria, ur 2+(A) [facility] Mucous, ur Present(A) [facility] Amorphous crystals, ur 1+(A) [facility] Granular casts, ur 6-10(A) 0 - 0 /LPF [facility] Culture Reflex Comment Reflex conditions for urine culture (WBC >10) not met. [facility] Urine 08/23/2024 5:38 PM CDT 08/23/2024 5:50 PM CDT Anil Holm MD LAB URINE ORDERABLES Fi nal Result Performing Organization Address [facility] Co de Phone Number [facility] [place] [address] * ECG 12-LEAD (08/23/2024 4:53 PM CDT) [...] ORDERABLES Final R esult Performing Organization Address [facility] Co de Phone Number [facility] * (ABNORMAL) POCT glucose (08/23/2024 4:50 PM CDT) [facility] Glucose, POC 202(H) 70 - 199 mg/dL Blood 08/23/2024 4:50 PM CDT 08/23/2024 4:50 PM CDT us Notinfile Unknown LAB POCT ORDERABLES - DEVICE F inal Result Performing Organization Address City/[facility] Co de Phone Number [facility] Department [place] [address] * Troponin I high-sensitivity series (baseline, 2hr, [...] ORDERABLES Fi nal Result Performing Organization Address City/[facility]/ZIP Co de Phone Number [facility] [place] [address] * eGFR (08/23/2024 4:33 PM CDT) eGFR [...] LAB BLOOD ORDERABLES Fi nal Result [facility] [place] [address] * (ABNORMAL) Differential, auto (08/23/2024 4:33 PM CDT) Neutrophil abs 6.1 1.5 - 6.5 K/cumm Imm gran abs 0.1 0.0 - 0.1 K/cumm [facility] Lymphocyte abs 0.8 0.8 - 3.3 K/cumm [facility] Monocyte abs 0.9(H) 0.2 - 0.8 K/cumm [facility] Eosinophil abs 0.5 0.0 - 0.5 K/cumm [facility] Basophil abs 0.1 0.0 - 0.1 K/cumm [facility] Neutrophil pct 72.3 % [facility] Comment: Interpretive Data Percent cell count reference ranges are not reported, since discordance with absolute values may lead to misinterpretation of CBC data. Current Interpretive Data was last revised on 2017. Imm gran pct 0.6 % [facility] Comment: Interpretive Data Percent cell count reference ranges are not reported, since discordance with absolute values may lead to misinterpretation of CBC data. Current Interpretive Data was last revised on 2017. Lymphocyte pct 9.0 % [facility] Comment: Interpretive Data Percent cell count reference ranges are not reported, since discordance with absolute values may lead to misinterpretation of CBC data. Current Interpretive Data was last revised on 2017. Monocyte pct 11.2 % [facility] Comment: Interpretive Data Percent cell count reference ranges are not reported, since discordance with absolute values may lead to misinterpretation of CBC data. Current Interpretive Data was last revised on 2017. Eosinophil pct 6.1 % [facility] Comment: Interpretive Data Percent cell count reference ranges are not reported, since discordance with absolute values may lead to misinterpretation of CBC data. Current Interpretive Data was last revised on 2017. Basophil pct 0.8 % [facility] Comment: Interpretive Data Percent cell count reference ranges are not reported, since discordance with absolute values may lead to misinterpretation of CBC data. Current Interpretive Data was last revised on 2017. Blood 08/23/2024 4:33 PM CDT 08/23/2024 5:06 PM CDT Anil Holm MD LAB BLOOD ORDERABLES Fi nal Result Performing Organization Address [facility] Co de Phone Number [facility] [place] [address] * (ABNORMAL) CBC with auto differential (08/23/2024 4:33 PM CDT) Pathologist [facility] [place] WBC 8.4 3.8 - 9.9 K/cumm Hgb 11.2(L) 13.0 - 17.5 g/dL [facility] Hct 34.5(L) 38.9 - 50.3 % [facility] Plt 214 150 - 400 K/cumm [facility] MPV 10.7 9.1 - 12.3 fL [facility] RBC 3.81(L) 4.30 - 5.80 M/cumm [facility] MCV 90.6 81.3 - 96.4 fL [facility] MCH 29.4 27.1 - 33.3 pg [facility] MCHC 32.5 32.3 - 35.7 g/dL [facility] RDW CV 13.8 11.1 - 14.9 % [facility] RDW SD 46.1 35.7 - 48.1 fL [facility] NRBC abs 0.00 0.00 - 0.01 K/cumm [facility] Blood 08/23/2024 4:33 PM CDT 08/23/2024 5:06 PM CDT Anil Holm MD LAB BLOOD ORDERABLES Fi nal Result Performing Organization Address City/[facility]/ZIP Co de Phone Number [facility] [place] [address] * (ABNORMAL) aPTT (08/23/2024 4:33 PM CDT) [...] ORDERABLES Fi nal Result Performing Organization Address [facility] Co de Phone Number [facility] [place] [address] * (ABNORMAL) Protime-INR (08/23/2024 4:33 PM CDT) PT 24.6(H) 9.7 - 13.0 sec INR 2.24(H) 0.90 - 1.20 [facility] Comment: Interpretive data Oral anticoagulant therapeutic ranges: Venous thromboembolism prophylaxis or treatment: 2.0-3.0 CARDIOLOGY Standard range: 2.0-3.0 High-intensity range: 2.5-3.5 Refer to indication-specific guidelines for appropriate target ranges for prosthetic heart valve replacement. Current interpretive data was last revised on 2019. Blood 08/23/2024 4:33 PM CDT 08/23/2024 5:10 PM CDT Anil Holm MD LAB BLOOD ORDERABLES Fi nal Result Performing Organization Address [facility] Co de Phone Number [facility] [place] [address] * Type and screen (08/23/2024 4:33 PM CDT) Annetta, indirect Negative Comment:Patient has previous antibody history ABO Rh O Negative [facility] Blood 08/23/2024 4:33 PM CDT 08/23/2024 5:18 PM CDT Narrative [facility] - 08/23/2024 6:16 PM CDT Has the patient had Daratumumab or Isatuximab in the past 6 months?->Unknown Anil Holm MD LAB BLOOD BANK TEST ORD ERABLES Final Result Performing Organization Address [facility] [place] [address] * (ABNORMAL) Hemoglobin A1c (08/23/2024 4:33 PM CDT) Pathologist [facility] [place] Hgb A1C 7.1(H) 4.0 - 5.6 % Estimated Average Glucose 157 mg/dL [facility] Comment: The ADA recommends reporting an estimated [...] ORDERABL ES Final Result Performing Organization Address [facility] [place] [address] * (ABNORMAL) Comprehensive metabolic panel (08/23/2024 4:33 PM CDT) Pathologist [facility] Sodium 138 135 - 145 mmol/L Potassium, pl 4.2 3.3 - 4.9 mmol/L [facility] Chloride 102 97 - 110 mmol/L [facility] CO2 25 22 - 32 mmol/L [facility] Anion gap 11 2 - 15 mmol/L [facility] BUN 13 6 - 25 mg/dL [facility] Creatinine 1.14 0.80 - 1.30 mg/dL [facility] Glucose 216(H) 70 - 199 mg/dL [facility] Comment: Interpretive Data Fasting glucose >/= 126 [...] 2022. Calcium 8.1(L) 8.5 - 10.3 mg/dL [facility] Bilirubin, total 0.5 0.1 - 1.2 mg/dL [facility] Protein, pl 6.3(L) 6.5 - 8.5 g/dL [facility] Albumin 3.1(L) 3.5 - 5.0 g/dL [facility] Alk phos 104 40 - 130 Units/L [facility] ALT 36 7 - 55 Units/L [facility] AST 51(H) 10 - 50 Units/L [facility] Blood 08/23/2024 4:33 PM CDT 08/23/2024 5:06 PM CDT Anil Holm MD LAB BLOOD ORDERABLES Fi nal Result [facility] [place] [address] * (ABNORMAL) CBC with auto differential (08/20/2024 [...] ORDERABLES Fin al Result Performing Organization Address City/[facility]/ZIP Co de Phone Number EXTERNAL LAB * [...] Units/L EXTERNAL LAB SCRIBED eGFR in NonAfrican [place] 60 >=60 EXTERNAL LAB Blood 08/20/2024 9:34 AM CDT Suresh Verma MD LAB BLOOD ORDERABLES Fin al Result EXTERNAL LAB * (ABNORMAL) CBC with auto differential (08/20/2024) Pathologist [facility] [place] SCRIBED WBC 7 3.8 - 10.8 k/cumm [facility] S[facility] Platelets 213 140 - 400 k/cumm [facility] Neutrophils Abs 5,005 1,500 - 7,800 k/cumm [facility] Eosinophils Abs 518(A) 15 - 500 k/cumm [facility] Blood 08/20/2024 Americo Mcneil MD LAB BLOOD ORDERABLES Fi nal Result Performing Organization Address City/[facility]/ZIP Co de Phone Number [facility] * (ABNORMAL) Protime-INR (08/20/2024) Pathologist [facility] [place] INR 2.90(A) 0.90 - 1.10 Blood Result [facility] Historical Provider LAB BLOOD ORDERABLES Maia l Result * Comprehensive metabolic panel (08/20/2024) Pathologist [facility] SCRIBED Potassium 3.5 3.5 - 5.3 mmol/L [facility] Creatinine 1.25 0.7 - 1.25 mg/dl [facility] Alanine Transaminase (ALT) 30 9 - 46 Units/L [facility] Aspartate Transaminase (AST) 33 10 - 35 Units/L [facility] Blood 08/20/2024 Result [facility] Americo Mcneil MD LAB BLOOD ORDERABLES Fi nal Result [facility] * (ABNORMAL) Protime-INR (08/14/2024) Pathologist [facility] [place] INR 3.10(A) 0.90 - 1.10 Blood Result [facility] Historical Provider LAB BLOOD ORDERABLES Maia l Result * (ABNORMAL) CBC with auto differential (08/13/2024 1:17 PM CDT) Pathologist [facility] [place] SCRIBED WBC 6.6 3.8 - 10.8 k/cumm [facility] Hemoglobin 11.0(A) 13.2 - 17.1 g/dL [facility] Hematocrit 33.8(A) 38.5 - 50.0 % [facility] Platelets 240 140 - 400 k/cumm [facility] Blood 08/13/2024 1:17 PM CDT Suresh Verma MD LAB BLOOD ORDERABLES Fin al Result Performing Organization Address [facility]/ZIP Co de Phone Number [facility] * (ABNORMAL) Protime-INR (08/13/2024 1:17 PM CDT) Pathologist [facility] SCRIBED PT 31.4(A) 9.0 - 11.5 sec [facility] INR 3.1(A) 2.0 - 3.0 sec [facility] Blood 08/13/2024 1:17 PM CDT Suresh Verma MD LAB BLOOD ORDERABLES Fin al Result Performing Organization Address [facility]/ZIP Co de Phone Number [facility] * (ABNORMAL) Comprehensive metabolic panel (08/13/2024 1:17 PM CDT) Pathologist [facility] SCRIBED Sodium 139 135 - 146 mmol/L [...] 35 Units/L [facility] SCRIB[facility] eGFR in NonAfrican [place] 66 >=60 [facility] Blood 08/13/2024 1:17 PM [...] BLOOD ORDERABLES Ed ited Result - Final Performing Organization Address [facility]/State/ZIP Co de Phone Number [facility] * (ABNORMAL) Comprehensive metabolic panel (08/13/2024) [...] (08/07/2024) INR 2.70(A) 0.90 - 1.10 Blood Crys Avila MD LAB BLOOD ORDERABLES Maia l Result * (ABNORMAL) CBC with auto differential (08/06/2024 11:27 AM CDT) SCRIBED WBC 6.0 3.8 - 10.8 k/cumm [facility] Hemoglobin 10.9(A) 13.2 - 17.1 g/dL [facility] Hematocrit 33.4(A) 38.5 - 50.0 % [facility] SCRIB[facility] Platelets 208 140 - 400 k/cumm [facility] Blood 08/06/2024 11:2 7 AM CDT Result [facility] Suresh Verma MD LAB BLOOD ORDERABLES Fin al Result Performing Organization Address [facility] de Phone Number [facility] * (ABNORMAL) Protime-INR (08/06/2024 11:27 AM CDT) Pathologist [facility] SCRIBED PT 27.3(A) 9.0 - 11.5 sec [facility] S[facility] INR 2.7 2.0 - 3.0 sec [facility] Blood 08/06/2024 11:2 7 AM CDT Result [facility] Suresh Verma MD LAB BLOOD ORDERABLES Fin al Result Performing Organization Address [facility]/ZIP Co de Phone Number [facility] * (ABNORMAL) Comprehensive metabolic panel (08/06/2024 [...] 35 Units/L [facility] SCR[facility] eGFR in NonAfrican [place] 50 >=60 [facility] Blood 08/06/2024 11:2 7 AM CDT Suresh Verma MD LAB BLOOD ORDERABLES Fin al Result [facility] * CBC with auto differential (08/06/2024) SCRIBED WBC 6.0 3.8 - 10.8 k/cumm [facility] SCRIBED Platelets 208 140 - 400 k/cumm [facility] SCR[facility] Neutrophils Abs 3,978 1,500 - 7,800 k/cumm [facility] Eosinophils Abs 600 15 - 600 k/cumm [facility] Blood 08/06/2024 Historical Margarita GÓMEZ LAB BLOOD ORDERABLES Maia l Result [facility] [...] [facility] * Flexible Sigmoidoscopy (05/29/2024 9:01 AM ENDOSCOPIC TECHNICIAN) Anatomical Region Laterality Modality Other Narrative Procedure Note Robles Murphy MD - 05/29/2024 9:01 AM [facility] Patient Name: Cindy Severino Procedure Date: 05/29/2024 9:01 AM Date of : 1950 Admit Type: Inpatient Age: 73 Gender: Male Attending MD: Marquise Latham Room: [facility] ENDOSCOPY Note Status: Finalized Procedure: Flexible Sigmoidoscopy Indications: Rectal hemorrhage, Abnormal CT of the GI tract Referring MD: Suresh Verma M.D. Providers: Robles Murphy M.D., Royal Burgos M.D. Medicines: Monitored Anesthesia Care Complications: No immediate complications. Estimated Blood Loss: Estimated blood loss was minimal. Procedure: The benefits, risks, and alternatives to theprocedure and sedation were discussed and informed consentwas obtained. The [id number] endoscope was introduced through the anus [...] 0 Note Initiated On: 05/29/2024 9:01 AM us Robles Murphy MD ENDOSCOPY PROCEDUR ES Final Result * (ABNORMAL) Lipid panel (05/26/2024 5:30 PM ENDOSCOPIC TECHNICIAN) [facility] Signature Cholesterol 180 30 - 199 mg/dL Comment: [...] revised on 2018. Triglycerides 161(H) <=149 mg/dL [facility] Comment: Interpretive Data Ages < or = [...] revised on 2018. HDL 31(L) >=40 mg/dL [facility] Comment: Interpretive Data Ages < or = [...] on 2018. LDL, calculated 120 <=129 mg/dL [facility] Comment: Interpretive Data Ages < or = [...] revised on 2024. Non-HDL Cholesterol 149 mg/dL [facility] Comment: Interpretive Data Ages < or = [...] last revised on 2018. Chol/HDL ratio 6 [facility] Blood 05/26/2024 5:30 PM ENDOSCOPIC TECHNICIAN 05/26/2024 5:47 PM ENDOSCOPIC TECHNICIAN Narrative [facility] - 05/27/2024 1:24 AM ENDOSCOPIC TECHNICIAN This lipid panel was automatically ordered due to a significant change in Troponin. The dietary status of the patient at the collection time should be correlated with the lipid results. us Abel Mak MD LAB BLOOD ORDERABLES Maia guidry Result [facility] [place] [address] * Hepatitis C (HCV) RNA PCR, quantitative Blood (04/17/2024 6:26 PM ENDOSCOPIC TECHNICIAN) HCV RNA result Not Detected [facility] Comment: The quantifiable range of this assay is 15 IU/mL to 100,000,000 IU/mL (1.18 log IU/mL to 8.00 log IU/mL). Testing was performed by the ILE[employer] 6800 HCV Test ([employer] Testing performed at [facility] Current Interpretive Data was last revised on 2021 Blood 04/17/2024 6:26 PM ENDOSCOPIC TECHNICIAN 04/17/2024 6:46 PM ENDOSCOPIC TECHNICIAN Olinda Harrell MD LAB MICROBIOLOGY - GENE RAL ORDERABLES Final Result [facility] [place] [address] [facility] * COLONOSCOPY REPORT (10/16/2013) Anatomical Region Laterality Modality Other Narrative 10/16/2013 Ordered by an unspecified provider. 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 Insurance [facility] MEDICARE MEDICARE RESEARCH [facility] MEDICARE [facility]ICARE [facility] AETNA MEDICARE MEDICARE [employer]EARCH [employer] MEDICARE Advance Directives For more information, please contact: [phone] Documents on File Type Date Recorded Patient Tariff Supervisor Expl anation ADVANCE DIRECTIVE 12/07/2012 12:00 AM EVIE LAMBERT WILL ADVANCE DIRECTIVE 12/07/2012 12:00 AM JIMENA R OF BICYCLE TECHNICIAN FINANCIAL/MEDICAL * Full Code (Latest Code Status [...] 3:02 PM 04/02/2023 5:36 PM Care Teams Medical Insurance Coding Specialist Relationship Specialty Start Date End Date Tika Araujo MD PCP - General Nurse Practitioner 03/27/20 Americo Mcneil MD [address] [facility] [id number] [place] [address] PCP - Home Infusion Attending Infectious Diseases 10/15/24 Suresh Verma MD Activities Director Transplant 09/16/18 Pao Allen, RN VAD Coordinator Transplant 03/20/19 Emmy Alicea Primary Drag Seiner Transplant 08/14/24 Korey Warren, [facility] Pharmacist Pharmacy 10/23/24
--- OUTSIDE RECORDS SUMMARY | 2024-11-06 17:21 | XMS_ITS | Encounter Summary ---
Author Organization [facility] Address [address] [place] [address] Phone Care Team Providers Care Legislative Assistant Name Role Phone Suresh Verma MD Unavailable [phone] Pao Allen RN Unavailable [phone] Tika Araujo MD Primary Care Provider [phone] Emmy Alicea Unavailable Unavailable Americo Mcneil MD Unavailable [phone] Korey Warren [facility] Unavailable Unavail able Encounter Details Date Type Department Care Team (Late st Contact Info) Description 09/21/2024 Telephone [facility] Infectious Diseases [address] [place] [address] [address] [place] [address] Destinee Peraza RMA Social History Tobacco Use Types Packs/Day Years Used Date Smoking Tobacco: Never Passive Smoke Exposure: Never Smokeless Tobacco: Never Alcohol Use Standard Drinks/Week Comments No 0 (1 standard drink = 0.6 oz pur e alcohol) [facility] Utilities Answer Date Recorded In the past 12 months has [employer], gas, oil, or water company threatened [...] 08/25/2024 How often do you attend chur or latter day services? More than 4 times per year 08/25/2024 Do you belong to any clubs o r organizations such as hindu groups, unions, fraternal or athletic groups, or [...] place to sleep or slept in a correction (including now)? Patient refused 03/23/2023 Housing Stability [...] any time in the past 12 m [facility], were you homeless or living in a correction (including now)? No 08/25/2024 Personal Safety Answer Date Recorded Have you ever been in or are you currently in a harmful physical or emotional relationship or is someone making you feel afraid or unsafe? 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 Mcneil to discuss options/plan for antibiotictherapy. Pt reported verbal agreement. * Telephone Encounter - Destinee Peraza RMA - 09/21/2024 10:42 AM CDT Jessi called re Mike' Elevated liver function and has been trending up for the past 2wks. 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
--- OUTSIDE RECORDS SUMMARY | 2024-11-06 17:21 | XMS_ITS | Encounter Summary ---
Author Organization [facility] Address [address] [place] [address] Phone Care Team Providers Care Model Maker Plastic Name Role Phone Collin John MD Primary Care Provider [phone] Prasanna Newton DO Primary Care Provider [phone] Marietta Carroll RN Unavailable Jacque Suresh Miller MD Unavailable [phone] Pao Allen RN Unavailable [phone] Tika Araujo MD Primary Care Provider [phone] Tika Araujo MD Primary Care Provider [phone] Emmy Alicea Unavailable Unavailable Americo Mcneil MD Unavailable [phone] Korey Warren [facility] Unavailable Unavail able Encounter Details Date Type Department Care Team (Late st Contact Info) Description 03/01/2016 Orders Only [facility]INCON[facility] Provider, MD Crys [address] [place] [address] Social History Tobacco Use Types Packs/Day Years Used Date Smoking Tobacco: Never Alcohol Use Standard Drinks/Week Comments No 0 (1 standard drink = 0.6 oz pur e alcohol) Sex and Gender Information Value Date Recorded Sex Assigned at Not on file 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 us Historical Provider MD CV CARDIAC SERVICES PROCE DURES Final Result * CARDIOLOGY REPORT (03/01/2016) Anatomical Region Laterality Modality Other Narrative 03/01/2016 Ordered by an unspecified provider. us Historical [...] documented as of this encounter Care Teams Model Maker Plastic Relationship Specialty Start Date End Date Collin John MD [id number] [place] [address] PCP - General 07/13/16 02/24/20 Prasanna Newton DO [address] [place] [address] PCP - General 06/07/06 07/12/16 Tika Araujo MD PCP - General Nurse Practitioner 03/27/20 Tika Araujo MD PCP - General 02/25/20 03/26/20 Americo Mcneil MD [address] [facility] [id number] [place] [address] PCP - Home Infusion Attending Infectious Diseases 10/15/24 Marietta Carroll, SANKET Registered Nurse Bar Supervisor 10/31/17 03/20/[address] Verma MD [address] Clerk Transplant 09/16/18 Pao Allen, RN VAD Coordinator Transplant 03/20/19 Emmy Alicea Primary Respiratory Manager Transplant 08/14/24 Korey Warren [facility] Pharmacist Pharmacy 10/23/24 documented as of this encounter
--- OUTSIDE RECORDS SUMMARY | 2024-11-06 17:21 | XMS_ITS | Encounter Summary ---
Author Organization [facility] Address [address] [place] [address] Phone Care Team Providers Care Lead Nurse Name Role Phone Collin John MD Primary Care Provider [phone] Marietta Carroll RN Unavailable Jacque karthikble Suresh Verma MD Unavailable [phone] Pao Allen RN Unavailable [phone] Tika Araujo MD Primary Care Provider [phone] Tika Araujo MD Primary Care Provider [phone] Emmy Alieca Unavailable Unavailable Americo Mcneil MD Unavailable [phone] Korey Warren [facility] Unavailable Unavail able Encounter Details Date Type Department Care Team (Late st Contact Info) Description 08/03/2017 Orders Only [facility] CAR CLINCONV Provider, MD Crys [address] [place] [address] Social History Tobacco Use Types Packs/Day Years Used Date Smoking Tobacco: Never Alcohol Use Standard Drinks/Week Comments No 0 (1 standard drink = 0.6 oz pur e alcohol) Sex and Gender Information Value Date Recorded Sex Assigned at Not on file Legal Sex Male 12:11 AM [employer] 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 us Historical Provider MD CV CARDIAC SERVICES PROCE DURES Final Result * CARDIOLOGY REPORT (08/03/2017) Anatomical Region Laterality Modality Other Narrative 08/03/2017 Ordered by an unspecified provider. us Historical [...] documented as of this encounter Care Teams Lead Nurse Relationship Specialty Start Date End Date Collin John MD [address] [facility] [address] [place] [address] PCP - General 07/13/16 02/24/20 Tika Araujo MD PCP - General Nurse Practitioner 03/27/20 Tika Araujo MD PCP - General 02/25/20 03/26/20 Americo Mcneil MD [address] [facility] [place] [phone] [place] [address] PCP - Home Infusion Attending Infectious Diseases 10/15/24 Marietta Carroll, RN Registered Nurse Track Manager 10/31/17 03/20/19 Suresh Verma MD Apprentice Plumber Transplant 09/16/18 Pao Allen, RN VAD Coordinator Transplant 03/20/19 Emmy Alicea Primary Hide Shaker Transplant 08/14/24 Korey Warren, [facility] Pharmacist Pharmacy 10/23/24 documented as of this encounter
--- OUTSIDE RECORDS SUMMARY | 2024-11-06 17:21 | XMS_ITS ---
Author Organization [facility] Virtual Care Address [facility] [place] [address] Phone Care Team Providers Care Market Research Intern Name Role Phone Suresh Verma MD Unavailable [phone] Pao Allen RN Unavailable [phone] Tika Araujo MD Primary Care Provider [phone] Emmy Alicea Unavailable Unavailable Americo Mcneil MD Unavailable Korey Warren [facility] Unavailable Unavail able Active Problems Patient Care Coordination No te [...] bid Assessment & Plan (05/27/2024 2:51 AM LEVEL VIAL INSPECTOR AND TESTER): -Home regimen: Entresto, coreg and imdur. -hold these iso orthostasis; re-introduce as tolerated Orthostasis 05/27/2024 Assessment & Plan (05/27/2024 5:39 AM LEVEL VIAL INSPECTOR AND TESTER): Presented with orthostatic symptoms while at home [...] 05/27/2024 Assessment & Plan (06/05/2024 11:44 AM LEVEL VIAL INSPECTOR AND TESTER): Admitted with BRBPR and near syncope, Hgb [...] sigmoidoscopy. Assessment & Plan (06/04/2024 11:42 AM LEVEL VIAL INSPECTOR AND TESTER): Admitted with BRBPR and near syncope, Hgb [...] sigmoidoscopy. Assessment & Plan (06/03/2024 8:04 AM LEVEL VIAL INSPECTOR AND TESTER): Admitted with BRBPR and near syncope, Hgb [...] sigmoidoscopy. Assessment & Plan (06/01/2024 11:39 AM LEVEL VIAL INSPECTOR AND TESTER): Admitted with BRBPR and near syncope, Hgb [...] sigmoidoscopy. Assessment & Plan (05/31/2024 9:25 AM LEVEL VIAL INSPECTOR AND TESTER): Admitted with BRBPR and near syncope, Hgb [...] CBCs Assessment & Plan (05/27/2024 12:05 PM LEVEL VIAL INSPECTOR AND TESTER): C/O BRBPR admitted with near syncope, admit Hgb 11.6, INR 2.4 -serial CBC -BID PPI -guaiac stools -hold ASA and warfarin pending Hgb trend -consider GI consult when INR down Assessment & Plan (05/27/2024 5:33 AM LEVEL VIAL INSPECTOR AND TESTER): After admission; overnight patient had episode of [...] inpatient Assessment & Plan (06/05/2024 11:44 AM LEVEL VIAL INSPECTOR AND TESTER): Home regimen: Lantus 30units nightly and Lispro SSI -HgbA1c 6.8 -BG currently controlled -Continue dose reduced Lantus 26 units nightly, Lispro 6 units TID with meals + SSI -Carb consistent diet -Accuchecks Assessment & Plan (06/04/2024 11:41 AM LEVEL VIAL INSPECTOR AND TESTER): Home regimen: Lantus 30units nightly and Lispro SSI -HgbA1c 6.8 -BG currently controlled -Continue dose reduced Lantus 26 units nightly, Lispro 6 units TID with meals + SSI -Carb consistent diet -Accuchecks Assessment & Plan (06/03/2024 8:03 AM LEVEL VIAL INSPECTOR AND TESTER): Home regimen: Lantus 30units nightly and Lispro SSI -HgbA1c 6.8 -BG currently controlled -Continue dose reduced Lantus 26 units nightly, Lispro 6 units TID with meals + SSI -Carb consistent diet -Accuchecks Assessment & Plan (06/01/2024 11:40 AM LEVEL VIAL INSPECTOR AND TESTER): Home regimen: Lantus 30units nightly and Lispro SSI -HgbA1c 6.8 -BG currently controlled -Continue dose reduced Lantus 26 units nightly, Lispro 6 units TID with meals + SSI -Carb consistent diet -Accuchecks Assessment & Plan (05/31/2024 9:30 AM LEVEL VIAL INSPECTOR AND TESTER): Home regimen: Lantus 30units nightly and Lispro SSI -HgbA1c 6.8 -BG currently controlled -Continue dose reduced Lantus 26 units nightly, Lispro 6 units TID with meals + SSI -Carb consistent diet -Accuchecks Assessment & Plan (05/27/2024 9:58 AM LEVEL VIAL INSPECTOR AND TESTER): Home regimen includes lantus 30 IU nightly and lispro SSI HgbA1c 6.8 -dose reduce lantus, add meal time lispro insulin Hypomagnesemia 05/27/2024 Assessment & Plan (06/03/2024 8:04 AM LEVEL VIAL INSPECTOR AND TESTER): S/p IV repletion this admission, continue to check and treat as needed Assessment & Plan (05/27/2024 12:04 PM LEVEL VIAL INSPECTOR AND TESTER): Mg 1.3 -replete with PO and IV -recheck tomorrow History of left ventricular assist device (LVAD) 05/26/2024 Assessment & Plan (06/05/2024 11:44 AM LEVEL VIAL INSPECTOR AND TESTER): ICM with HFrEF s/p RISK CONTROL PRODUCT LIABILITY DIRECTOR-D 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) admitted with near [...] weights Assessment & Plan (06/04/2024 11:42 AM LEVEL VIAL INSPECTOR AND TESTER): ICM with HFrEF s/p RISK CONTROL PRODUCT LIABILITY DIRECTOR-D 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) admitted with near [...] weights Assessment & Plan (06/03/2024 8:04 AM LEVEL VIAL INSPECTOR AND TESTER): ICM with HFrEF s/p RISK CONTROL PRODUCT LIABILITY DIRECTOR-D 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) admitted with near [...] admission and GI bleeding - resumed entresto 06/02 -Accurate I&O, monitor on telemetry, daily weights Assessment & Plan (06/01/2024 11:30 AM LEVEL VIAL INSPECTOR AND TESTER): ICM with HFrEF s/p RISK CONTROL PRODUCT LIABILITY DIRECTOR-D 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) admitted with near [...] weights Assessment & Plan (05/31/2024 9:45 AM LEVEL VIAL INSPECTOR AND TESTER): ICM with HFrEF s/p RISK CONTROL PRODUCT LIABILITY DIRECTOR-D 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 Assessment & Plan (04/18/2024 1:51 PM LEVEL VIAL INSPECTOR AND TESTER): RUQ/ Right flank pain associated with nausea [...] control. Assessment & Plan (04/18/2024 1:38 AM LEVEL VIAL INSPECTOR AND TESTER): RUQ/ Right flank pain associated with nausea [...] 04/17/2024 Assessment & Plan (04/19/2024 12:38 PM LEVEL VIAL INSPECTOR AND TESTER): - have been progressively increasing lately - [...] desensitization. Assessment & Plan (04/18/2024 1:40 PM LEVEL VIAL INSPECTOR AND TESTER): - have been progressively increasing lately - [...] recs. 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 [...] 05/31) Assessment & Plan (06/03/2024 8:04 AM LEVEL VIAL INSPECTOR AND TESTER): 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 [...] 05/31) Assessment & Plan (06/01/2024 11:40 AM LEVEL VIAL INSPECTOR AND TESTER): 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 [...] 05/31) Assessment & Plan (05/31/2024 9:45 AM LEVEL VIAL INSPECTOR AND TESTER): 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 Assessment & Plan (04/01/2023 12:48 PM CDT): [...] 08/28/2021 Assessment & Plan (05/27/2024 2:46 AM LEVEL VIAL INSPECTOR AND TESTER): Improving from prior admission when minocycline switched [...] CPAP Assessment & Plan (06/05/2024 11:46 AM LEVEL VIAL INSPECTOR AND TESTER): -Nightly CPAP with home unit Assessment & Plan (06/04/2024 11:43 AM LEVEL VIAL INSPECTOR AND TESTER): -Nightly CPAP with home unit Assessment & Plan (06/03/2024 8:05 AM LEVEL VIAL INSPECTOR AND TESTER): Nightly CPAP with home unit Assessment & Plan (06/01/2024 11:40 AM LEVEL VIAL INSPECTOR AND TESTER): Nightly CPAP with home unit Assessment & Plan (05/29/2024 11:33 AM LEVEL VIAL INSPECTOR AND TESTER): Nightly CPAP with home unit Assessment & Plan (05/27/2024 9:50 AM LEVEL VIAL INSPECTOR AND TESTER): Nightly CPAP with home unit Assessment & Plan (05/27/2024 1:34 AM LEVEL VIAL INSPECTOR AND TESTER): - continue CPAP Assessment & Plan (04/19/2024 12:49 PM LEVEL VIAL INSPECTOR AND TESTER): Continue with CPAP Assessment & Plan (04/18/2024 1:45 PM LEVEL VIAL INSPECTOR AND TESTER): Continue with CPAP Assessment & Plan (04/18/2024 2:03 AM LEVEL VIAL INSPECTOR AND TESTER): CW CPAP Assessment & Plan (04/02/2023 8:42 [...] 10/22/2020 Assessment & Plan (06/05/2024 11:46 AM LEVEL VIAL INSPECTOR AND TESTER): -BMI 34, encourage weight loss Assessment & Plan (06/03/2024 8:05 AM LEVEL VIAL INSPECTOR AND TESTER): BMI 34, encouraged weight loss Assessment & Plan (05/27/2024 7:50 AM LEVEL VIAL INSPECTOR AND TESTER): BMI 34, encouraged weight loss Assessment & [...] 06/14/2018 Assessment & Plan (06/05/2024 11:42 AM LEVEL VIAL INSPECTOR AND TESTER): Pt c/o chest pain x 3 days relieved with SL nitro. -hx CABG and PCI in past -slightly elevated troponin, continue to trend -EKG unremarkable -increase imdur to 60mg daily -continue coreg, hold ASA 2/2 GIB, previously discontinued statin 2/2 elevated LFT -denies CP since admit Assessment & Plan (06/04/2024 11:36 AM LEVEL VIAL INSPECTOR AND TESTER): Pt c/o chest pain x 3 days relieved with SL nitro. -hx CABG and PCI in past -slightly elevated troponin, continue to trend -EKG unremarkable -increase imdur to 60mg daily -continue coreg, hold ASA 2/2 GIB, previously discontinued statin 2/2 elevated LFT -denies CP since admit Assessment & Plan (06/03/2024 8:00 AM LEVEL VIAL INSPECTOR AND TESTER): Pt c/o chest pain x 3 days relieved with SL nitro. -hx CABG and PCI in past -slightly elevated troponin, continue to trend -EKG unremarkable -increase imdur to 60mg daily -continue coreg, hold ASA 2/2 GIB, previously discontinued statin 2/2 elevated LFT -denies CP since admit Assessment & Plan (05/27/2024 12:21 PM LEVEL VIAL INSPECTOR AND TESTER): Pt c/o chest pain x 3 days [...] diuretics Assessment & Plan (08/02/2019 9:43 AM LEVEL VIAL INSPECTOR AND TESTER): -chronic systolic end stage heart failure -exam [...] -tele Assessment & Plan (08/01/2019 12:24 PM LEVEL VIAL INSPECTOR AND TESTER): -chronic systolic end stage heart failure -exam appears euvolemic and LVAD appears to be functioning appropriately -suspect that presenting CP 2/2 poorly controlled BP -continue asa/losartan and coreg/nitrate doses increased -add home torsemide for improved BP control -2D echo pending -continue low sodium diet -tele Assessment & Plan (07/31/2019 4:15 PM LEVEL VIAL INSPECTOR AND TESTER): Appears euvolemic on exam Admitted with elevated [...] therapy on April 12, 2015 for underlying [employer] class IV heart failure Assessment & Plan (08/31/2024 8:44 AM CDT): ICM with HFrEF S/P RISK CONTROL PRODUCT LIABILITY DIRECTOR-D and DT-HM3 (03/2015) admitted with BRBPR. Hemodynamically [...] -cont suppressive abx for hx driveline infection -PT/OT/mechanic field service -tele monitoring Assessment & Plan (08/30/2024 1:39 PM CDT): ICM with HFrEF S/P RISK CONTROL PRODUCT LIABILITY DIRECTOR-D and DT-HM3 (03/2015) admitted with BRBPR. Hemodynamically [...] -cont suppressive abx for hx driveline infection -PT/OT/mechanic field service -tele monitoring Assessment & Plan (08/29/2024 9:09 AM CDT): ICM with HFrEF S/P RISK CONTROL PRODUCT LIABILITY DIRECTOR-D and DT-3 (03/2015) admitted with BRBPR. Hemodynamically stable, appears euvolemic and denies VAD alarms. INR 2.24 on admission. -held warfarin for GIB, INR now 1.48, restarting warfarin with heparin bridge -warfarin 5mg tonight then 4mg daily -stopped asa -cont entresto, coreg, imdur -cont suppressive abx for hx driveline infection -PT/OT/mechanic field service -tele monitoring Assessment & Plan (08/26/2024 12:36 PM CDT): ICM with HFrEF S/P RISK CONTROL PRODUCT LIABILITY DIRECTOR-D and DT-3 (03/2015) admitted with BRBPR. Hemodynamically stable, appears euvolemic and denies VAD alarms. INR 2.24 on admission. -hold warfarin for GIB -cont entresto, coreg, imdur -cont suppressive abx for hx driveline infection -tele monitoring Assessment & Plan (08/24/2024 10:44 AM CDT): ICM with HFrEF S/P RISK CONTROL PRODUCT LIABILITY DIRECTOR-D and DT-HM3 (03/2015) admitted with BRBPR. Hemodynamically [...] 2:53 AM CDT): ICM with HFrEF S/P RISK CONTROL PRODUCT LIABILITY DIRECTOR-D and DT-HM3 (03/2015) admitted with BRBPR. Hemodynamically stable, appears euvolemic and denies VAD alarms. INR 2.24 on admission. 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 -tele monitoring Assessment & Plan (04/19/2024 12:46 PM LEVEL VIAL INSPECTOR AND TESTER): ICM with HFrEF S/P RISK CONTROL PRODUCT LIABILITY DIRECTOR-D and DT-HM3 (03/2015) Hx of recurrent drive [...] and order diuretics prn -On warfarin 5mg Tue, Tuesday and Tuesday, 4mg ROW, INR 2.5, CW same. -Patient denied any LVAD alarms. -continue with Entresto and coreg. -tele monitor, strict I&Os, daily weight, 2 g Na diet Assessment & Plan (04/18/2024 1:45 PM LEVEL VIAL INSPECTOR AND TESTER): ICM with HFrEF S/P RISK CONTROL PRODUCT LIABILITY DIRECTOR-D and DT-HM3 (03/2015) Hx of recurrent drive [...] diet Assessment & Plan (04/18/2024 3:54 AM LEVEL VIAL INSPECTOR AND TESTER): ICM with HFrEF S/P RISK CONTROL PRODUCT LIABILITY DIRECTOR-D and DT-HM3 (03/2015) Hx of recurrent drive [...] BP not improved with IVF will need DRY HOUSE TENDER -strict I/Os, daily standing weights -tele Assessment [...] Assessment & Plan (09/02/2021 12:01 PM CDT): [facility] March 2015 -LVAD functioning appropriately, no alarms -acute on chronic systolic HF with VENU and elevated LFTs -treated with IV lasix with improvement -transitioned back to home torsemide -INR 1.8, will increase warfarin to 6mg daily except Sun/Mon 5mg (home regimen) -continue home carvedilol, hydralazine, isordil, ASA, atorvastatin -I&Os, daily weights, telemetry Assessment & Plan (09/01/2021 9:21 AM CDT): [facility] March 2015 -LVAD functioning appropriately, no alarms -acute on chronic systolic HF with VENU and elevated LFTs -treated with IV lasix with improvement -transition back to home torsemide -INR down to 1.7; will give extra dose warfarin this morning -continue warfarin -continue home carvedilol, hydralazine, isordil, ASA, atorvastatin -I&Os, daily weights, telemetry Assessment & Plan (08/31/2021 3:38 PM CDT): [facility] March 2015 -LVAD functioning appropriately, no [...] Assessment & Plan (08/28/2021 1:53 PM CDT): [facility] March 2015 -LVAD functioning appropriately, no alarms -appears near euvolemic on exam -INR supratherapeutic, hold warfarin tonight -continue home carvedilol, hydralazine, isordil, ASA, atorvastatin -I&Os, daily weights, telemetry Assessment & Plan (08/27/2021 11:55 AM CDT): [facility] March 2015 LVAD functioning appropriately, no alarms -appears near euvolemic on exam -resume home torsemide 20mg daily -INR therapeutic at 2.8 (goal 2-3) -continue home warfarin regimen: 4mg SMWF, 5mg TTS -continue home carvedilol, hydralazine, isordil -continue home ASA 325mg daily, atorvastatin -I&Os, daily weights, telemetry -complication management as above Assessment & Plan (08/26/2021 11:32 AM CDT): [facility] March 2015 LVAD functioning appropriately, no alarms -appears euvolemic on exam -hold home diuretics for now (torsemide 20mg daily) -INR therapeutic at 2.5 (goal 2-3) -continue home warfarin regimen: 4mg SMWF, 5mg TTS -continue home carvedilol, hydralazine, isordil -continue home ASA 325mg daily, atorvastatin -I&Os, daily weights, telemetry -complication management as above Assessment & Plan (08/25/2021 10:29 AM CDT): [facility] March 2015 LVAD functioning appropriately, no alarms -appears euvolemic on exam -hold home diuretics for now (torsemide 20mg daily) -INR therapeutic at 2.2 (goal 2-3) -continue home warfarin regimen: 4mg SMWF, 5mg TTS -continue home carvedilol, hydralazine, isordil -continue home ASA 325mg daily, atorvastatin -I&Os, daily weights, telemetry -complication management as above Assessment & Plan (08/24/2021 2:27 PM CDT): III March 2015 LVAD functioning appropriately, [...] 2-3) Increase Warfarin to 7mg Monitor on consumer loan processor I/Os, daily weights Assessment & Plan (10/23/2020 [...] 325 Assessment & Plan (07/31/2019 4:13 PM LEVEL VIAL INSPECTOR AND TESTER): Patient was implanted in March 2015 as [...] INR checks. Cardiac resynchronization th erapy defibrillator (RISK CONTROL PRODUCT LIABILITY DIRECTOR-D) in place 12/30/2017 Overview (12/21/2021): Reached EoL in 2018 - elected NOT to generator change VT (ventricular tachycardia) ([facility]) 8 Overview (12/21/2021): Occurring before LVAD implantation - none since RISK CONTROL PRODUCT LIABILITY DIRECTOR-D device (Metronic-- implanted prior to lvad. Pt is not PPM dependent and decision made to not proceed with generator change in December 2017) Assessment & Plan (09/11/2021 10:26 AM CDT): -NSVT on telemetry -Monitor and replete electrolytes -telemetry Assessment & Plan (09/10/2021 9:31 AM CDT): nsvt noted on consumer loan processor for increase in arrythmia Keep potassium above 4 and magnesium around 2 CTM Assessment & Plan (08/02/2019 9:55 AM LEVEL VIAL INSPECTOR AND TESTER): -RISK CONTROL PRODUCT LIABILITY DIRECTOR-D device (Metronic-- implanted prior to lvad. Pt is not PPM dependent and decision made to not proceed with generator change in December 2017) -continue tele Assessment & Plan (08/01/2019 12:21 PM LEVEL VIAL INSPECTOR AND TESTER): -RISK CONTROL PRODUCT LIABILITY DIRECTOR-D device (Metronic-- implanted prior to lvad. Pt is not PPM dependent and decision made to not proceed with generator change in December 2017) -continue tele Assessment & Plan (07/31/2019 4:21 PM LEVEL VIAL INSPECTOR AND TESTER): patient had RISK CONTROL PRODUCT LIABILITY DIRECTOR-D device metronic implanted prior to lvad Is not pacemaker depenent Saw Dr. 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 Assessment & Plan (06/01/2024 11:39 AM LEVEL VIAL INSPECTOR AND TESTER): -CT scan has increase stool burden with stool ball in sigmoid colon -S/p enema for preparation for flex sigmoidoscopy performed on 05/29 -Patient has had several BMs since but none yet today -Continue Miralax BID, senna-docusate BID and dulcolax suppository PRN -Add lactulose today Assessment & Plan (05/31/2024 9:45 AM LEVEL VIAL INSPECTOR AND TESTER): -CT scan has increase stool burden with stool ball in sigmoid colon -S/p enema for preparation for flex sigmoidoscopy performed on 05/29 -Patient has had several BMs including this morning -Continue Miralax, senna-docusate and dulcolax suppository PRN Assessment & Plan (05/27/2024 2:45 AM LEVEL VIAL INSPECTOR AND TESTER): - had large BM in ED - [...] baseline Assessment & Plan (06/05/2024 11:46 AM LEVEL VIAL INSPECTOR AND TESTER): -Creatinine at baseline -Avoid nephrotoxins, renally dose meds as appropriate -Avoid hypotension -BMP daily Assessment & Plan (06/04/2024 11:44 AM LEVEL VIAL INSPECTOR AND TESTER): -Creatinine at baseline -Avoid nephrotoxins, renally dose meds as appropriate -Avoid hypotension -BMP daily Assessment & Plan (06/03/2024 8:05 AM LEVEL VIAL INSPECTOR AND TESTER): Creatinine at baseline Assessment & Plan (06/01/2024 11:40 AM LEVEL VIAL INSPECTOR AND TESTER): Creatinine at baseline Assessment & Plan (05/29/2024 11:32 AM LEVEL VIAL INSPECTOR AND TESTER): Creatinine at baseline Assessment & Plan (05/27/2024 7:49 AM LEVEL VIAL INSPECTOR AND TESTER): Creatinine at baseline Assessment & Plan (04/19/2024 12:49 PM LEVEL VIAL INSPECTOR AND TESTER): Cr at baseline CTM. Assessment & Plan (04/18/2024 1:23 PM LEVEL VIAL INSPECTOR AND TESTER): Cr at baseline CTM. Assessment & Plan (04/18/2024 1:46 AM LEVEL VIAL INSPECTOR AND TESTER): Cr at baseline CTM. Assessment & Plan [...] follow Assessment & Plan (08/02/2019 9:51 AM LEVEL VIAL INSPECTOR AND TESTER): Stage 3 CKD -Cr remains stable and in baseline range Assessment & Plan (08/01/2019 12:25 PM LEVEL VIAL INSPECTOR AND TESTER): Stage 3 CKD -Cr remains stable and in baseline range Assessment & Plan (07/31/2019 4:15 PM LEVEL VIAL INSPECTOR AND TESTER): History ckd stage 3 . Baseline creatine [...] PPI Assessment & Plan (05/27/2024 5:42 AM LEVEL VIAL INSPECTOR AND TESTER): - IV ppi Assessment & Plan (04/19/2024 12:39 PM LEVEL VIAL INSPECTOR AND TESTER): Continue with pantoprazole. Assessment & Plan (04/18/2024 1:41 PM LEVEL VIAL INSPECTOR AND TESTER): Continue with pantoprazole. Assessment & Plan (04/18/2024 1:39 AM LEVEL VIAL INSPECTOR AND TESTER): CW pantoprazole. Assessment & Plan (03/20/2022 1:03 [...] PPI Assessment & Plan (08/02/2019 9:45 AM LEVEL VIAL INSPECTOR AND TESTER): -+ dyspepsia -continue PPI Assessment & Plan (08/01/2019 10:33 AM LEVEL VIAL INSPECTOR AND TESTER): -+ dyspepsia -continue PPI Assessment & Plan (07/31/2019 4:00 PM LEVEL VIAL INSPECTOR AND TESTER): Increase home dose PPI to bid to [...] 8:23 AM CDT): -H/H stable from prior [facility] reading and pt denies bleeding -Home iron supplementation held for now -continue to follow Assessment & Plan (07/31/2019 4:09 PM LEVEL VIAL INSPECTOR AND TESTER): History of anemia - currently blood counts on admission look good Will continue to follow . Hyperlipidemia 01/07/2014 Assessment & Plan (04/19/2024 12:39 PM LEVEL VIAL INSPECTOR AND TESTER): Holding statin for elevated liver enzymes. Assessment & Plan (04/18/2024 1:16 PM LEVEL VIAL INSPECTOR AND TESTER): Holding statin for elevated liver enzymes. Assessment & Plan (04/18/2024 1:42 AM LEVEL VIAL INSPECTOR AND TESTER): Holding statin for elevated liver enzymes. Assessment [...] 08/15/20 Assessment & Plan (07/31/2019 4:10 PM LEVEL VIAL INSPECTOR AND TESTER): hi reports being on stelera injections Peripheral vascular disease 01/07/2014 Overview (09/03/2016): PVD Hypertension 01/07/2014 Assessment & Plan (04/19/2024 12:41 PM LEVEL VIAL INSPECTOR AND TESTER): -Continue with Entresto, Hydralazine, coreg and imdur. -Monitor BP and adjust accordingly. -Orthostatic BP as patient mentioned having occasional lightheadedness while standing. -encourage adequate rehydration, safety precautions while changing positions, compression stockings. May consider med readjustment if symptoms persist Assessment & Plan (04/18/2024 1:42 PM LEVEL VIAL INSPECTOR AND TESTER): -Continue with Entresto, Hydralazine, coreg and imdur. -Monitor BP and adjust accordingly. -Orthostatic BP as patient mentioned having occasional lightheadedness while standing. Assessment & Plan (04/18/2024 3:57 AM LEVEL VIAL INSPECTOR AND TESTER): CW Entresto, Hydralazine, coreg and imdur. Monitor [...] needed Assessment & Plan (08/02/2019 9:41 AM LEVEL VIAL INSPECTOR AND TESTER): -pt presented with poorly controlled hypertension -systolic BP remains elevated despite increased nitrates and coreg doses -consider addition of low dose norvasc to regimen -continue losartan and torsemide to regimen Assessment & Plan (08/01/2019 12:23 PM LEVEL VIAL INSPECTOR AND TESTER): -pt presented with poorly controlled hypertension -nitrates and coreg increased--continue to follow and titrate as needed -continue losartan and add torsemide to regimen Assessment & Plan (07/31/2019 3:57 PM LEVEL VIAL INSPECTOR AND TESTER): Elevated blood pressures at home and recorded [...] (09/20/2024): .Hx of ELISEO. On iron replacement. Current Treatment and Therapy Plans No current plan information found. Other Current Plans [facility] IM ONLY & IV MAINTENANCE THERAPY PLAN* Plan Start Date: 08/31/2022 Plan Provider:Americo Mcneil MD Linked Problems LVAD (left ventricular isacc t device) present (HCC) Treatment Medications No medications scheduled. Past Treatment and Therapy Plans Lifetime Dose Tracking * Chemical Lifetime Dose Automatic Entry Manual Entr y Fluoro Time 0.1 minutes 0.1 minutes 0 minutes Air kerma at the reference point (Ka,r) 1 mGy 1 mGy 0 mGy DLP 19,000 mGycm 19,000 mGycm 0 mGycm Resolved Problems Problem Noted Date Diagnosed Date [...] 06/02/2024 Assessment & Plan (05/27/2024 2:07 AM LEVEL VIAL INSPECTOR AND TESTER): - flomax; low threshold to hold if recurrent hypotension Assessment & Plan (04/19/2024 12:39 PM LEVEL VIAL INSPECTOR AND TESTER): tamsulosin. Assessment & Plan (04/18/2024 1:13 PM LEVEL VIAL INSPECTOR AND TESTER): tamsulosin. Assessment & Plan (04/18/2024 1:39 AM LEVEL VIAL INSPECTOR AND TESTER): tamsulosin. Assessment & Plan (04/02/2023 8:42 AM [...] high--pt given vitamin K 2.5mg PO on 10/20 -continue to hold coumadin -pt remains stable [...] SSI Assessment & Plan (05/27/2024 2:51 AM LEVEL VIAL INSPECTOR AND TESTER): Home regimen includes lantus 30 IU nightly and lispro SSI - continue with basal (dose reduced to 17 units during prior admission) and SSI only (he states he takes 1-6 of lispro with meals) - add bolus TID if needed Assessment & Plan (04/19/2024 12:50 PM LEVEL VIAL INSPECTOR AND TESTER): Home regimen includes lantus 30 IU nightly and lispro (6-20 IU) (per patient he takes 18 international units with most of the meals) - continue with basal bolus (dose reduced to 17 units) and prandial (dose reduced to 6 units with meals) regimen in additional to SSI - Monitor blood sugar and adjust insuline as needed. Assessment & Plan (04/18/2024 1:55 PM LEVEL VIAL INSPECTOR AND TESTER): Home regimen includes lantus 30 IU nightly and lispro (6-20 IU) (per patient he takes 18 international units with most of the meals) - continue with basal bolus (dose reduced to 17 units) and prandial (dose reduced to 6 units with meals) regimen in additional to SSI - Monitor blood sugar and adjust insuline as needed. Assessment & Plan (04/18/2024 1:42 AM LEVEL VIAL INSPECTOR AND TESTER): Home regimen includes lantus 30 IU nightly [...] SSI Assessment & Plan (08/02/2019 9:45 AM LEVEL VIAL INSPECTOR AND TESTER): -HgA1C well controlled -continue lantus and SSI Assessment & Plan (08/01/2019 10:36 AM LEVEL VIAL INSPECTOR AND TESTER): -HgA1C well controlled -continue lantus and SSI Assessment & Plan (07/31/2019 3:54 PM LEVEL VIAL INSPECTOR AND TESTER): Recheck hemglobin a1c - last one recored in september 2016- 7.5 Patient states hemglobin a1c controlled as outpatient Continue lantus [address] [facility] and SSI CAD in [place] artery 01/07/2014 025 Overview (02/23/2021): Coronary artery disease with history of coronary artery bypass graft with a MARIN to the LAD and free radial graft to obtuse marginal with multiple subsequent PCI to the right coronary artery. Assessment & Plan (05/27/2024 5:29 AM LEVEL VIAL INSPECTOR AND TESTER): SP CABG (MARIN-LAD, free radial graft-OM ) S/p PCI to RCA - hold asa, hold coreg - statins held previously due to prior abnormal LFTs - continue trop trend to peak; currently chest pain free though he did take nitro in last 2-3 days Assessment & Plan (04/19/2024 12:39 PM LEVEL VIAL INSPECTOR AND TESTER): SP CABG -Asymptomatic. -Negative troponin. -continue with ASA and coreg. -holding statins d/t abnormal LFTs Assessment & Plan (04/18/2024 1:41 PM LEVEL VIAL INSPECTOR AND TESTER): SP CABG -Asymptomatic. -Negative troponin. -continue with ASA and coreg. Assessment & Plan (04/18/2024 1:43 AM LEVEL VIAL INSPECTOR AND TESTER): SP CABG Asymptomatic. Negative troponin. CW ASA, [...] carvedilol Assessment & Plan (07/31/2019 4:08 PM LEVEL VIAL INSPECTOR AND TESTER): Admitted with chest pain relieved in setting [...]
--- NOTE | 2024-11-06 17:28 | ED_ITS ---
HPI - Altered Mental Status General Chief Complaint: Altered Mental Status Stated Complaint: states his PCP wants a CT for AMS, LVAD pt Time Seen by Provider: 11/06/24 16:59 History of Present Illness HPI narrative: Patient is a 74-year-old male who presents to the ER with concerns for altered mental status. He reports he fell on the floor approximately 1 month ago and went to the ER for evaluation. Patient was told he had a concussion but there was no bleeding in his brain. 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 These symptoms have resolved although he continues to have an intermittent headache. Patient's reports this morning he was ?very confused. He has a history of an LVAD, which she has had for approximately 10 years. Prior to his LVAD patient reports he had approximately 10 stents. He also endorses a history basal cell and squamous cell carcinoma, diabetes, and takes a blood thinner. Patient denies any numbness tingling, weakness, or recent fevers. Related Data Home Medications ?Medication ?Instructions ?Recorded ?Confirmed ?Last Taken ?Type acetaminophen 650 mg tablet 650 mg PO Q6H PRN Pain 06/11/21 06/11/21 Unknown History albuterol sulfate 90 mcg/actuation 2 puff inhalation QID 06/11/21 06/11/21 Unknown History aerosol inhaler allopurinol 100 mg tablet 100 mg PO DAILY 06/11/21 06/11/21 Unknown History amlodipine 10 mg tablet 10 mg PO DAILY 06/11/21 06/11/21 Unknown History aspirin 325 mg tablet 325 mg PO DAILY 06/11/21 06/11/21 Unknown History carvedilol 25 mg tablet 25 mg PO BID 06/11/21 06/11/21 Unknown History ergocalciferol (vitamin D2) 50,000 1 unit PO WEEKLY 06/11/21 06/11/21 Unknown History unit tablet ferrous sulfate 325 mg (65 mg 325 mg PO DAILY 06/11/21 06/11/21 Unknown History iron) tablet hydralazine 50 mg tablet 50 mg PO TID 06/11/21 06/11/21 Unknown History insulin aspart U-100 100 unit/mL 1 sliding scale dose subcut 06/11/21 06/11/21 Unknown History subcutaneous solution (Novolog USEASDIRECTD U-100 Insulin aspart) insulin glargine 100 unit/mL (3 30 unit subcut HS 06/11/21 06/11/21 Unknown History mL) subcutaneous pen (Basaglar MashaPen U-100 Insulin) isosorbide mononitrate 60 mg 90 mg PO DAILY 06/11/21 06/11/21 Unknown History tablet,extended release 24 hr levothyroxine 75 mcg tablet 75 mcg PO DAILY 06/11/21 06/11/21 Unknown History [id number]-[id number] 3 tablet PO TID 06/11/21 06/11/21 Unknown History 8,000-30,000-30,000 unit tablet losartan 50 mg tablet 100 mg PO DAILY 06/11/21 06/11/21 Unknown History magnesium oxide 800 mg PO BID 06/11/21 06/11/21 Unknown History multivit with minerals-iron 18 1 tablet PO DAILY 06/11/21 06/11/21 Unknown History mg-folic ac 400 mcg-vit K 25 mcg tablet (Adults Multivitamin) nitroglycerin 0.4 mg sublingual 0.4 mg sublingual Q5-15M PRN Chest 06/11/21 06/11/21 Unknown History tablet Pain pantoprazole 40 mg tablet,delayed 40 mg PO QAM 06/11/21 06/11/21 Unknown History release (Protonix) rosuvastatin 20 mg tablet (Crestor) 20 mg PO DAILY 06/11/21 06/11/21 Unknown History tamsulosin 0.4 mg capsule (Flomax) 0.4 mg PO DAILY 06/11/21 06/11/21 Unknown History torsemide 20 mg tablet 20 mg PO QAM 06/11/21 06/11/21 Unknown History trazodone 50 mg tablet 50 mg PO HS PRN Sleep 06/11/21 06/11/21 Unknown History ustekinumab 45 mg/0.5 mL 45 mg subcut ONCE 06/11/21 06/11/21 Unknown History subcutaneous solution (Stelara) warfarin 4 mg tablet 5 mg PO DAILY 06/11/21 06/11/21 Unknown History Allergies Allergy/AdvReac Type Severity Reaction Status Date / Time Sulfa (Sulfonamide Allergy Mild Verified 06/11/21 13:42 Antibiotics) levofloxacin Allergy Unknown Verified 06/11/21 13:42 Penicillins Allergy Unknown Verified 06/11/21 13:42 Quinolones Allergy Unknown Verified 06/11/21 13:42 Review of Systems 2 Review of Systems: All systems reviewed & are unremarkable except as noted in HPI and below Exam 2 Narrative: GENERAL: Well appearing, well-nourished, non-toxic, in no acute distress. HEAD: Normocephalic, atraumatic. NECK: Supple. No adenopathy, no masses. RESPIRATORY: Airway patent, respirations nonlabored. Clear to auscultation bilaterally, no rales, rhonchi, wheezing. CARDIOVASCULAR: Regular rate and rhythm without murmurs, rubs, or gallops. Peripheral pulses 2+ and equal bilaterally. + LVAD present ABDOMINAL: Soft, nontender, nondistended, no hepatosplenomegaly. Normoactive BS. MUSCULOSKELETAL: Moves all extremities. Strength/ROM intact without gross deformities. SKIN: Warm, dry, normal color. No rashes. NEURO: A&O X3. Speech clear. Cranial nerves II-XII intact. No ataxic movements. PSYCHIATRIC: Appropriate mood and affect. Normal interaction. Course Vital Signs Vital signs: Vital Signs Temperature 37.1 C 11/06/24 16:25 Pulse Rate 66 11/06/24 16:25 Respiratory Rate 16 11/06/24 16:25 Blood Pressure 129/78 11/06/24 16:25 Pulse Oximetry 99 11/06/24 16:25 Oxygen Delivery Room Air 11/06/24 16:25 Temperature 36.6 C 11/06/24 18:00 Pulse Rate 63 11/06/24 18:00 Respiratory Rate 18 11/06/24 18:00 Blood Pressure 148/102 H 11/06/24 18:00 Pulse Oximetry 99 11/06/24 18:00 Oxygen Delivery Room Air 11/06/24 18:24 MDM - Altered Mental Status MDM Narrative Medical decision making narrative: Patient is a 74-year-old male who presents to the ER with concerns for altered mental status. He reports he fell on the floor approximately 1 month ago and went to the ER for evaluation. Patient was told he had a concussion but there was no bleeding in his brain. 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 These symptoms have resolved although he continues to have an intermittent headache. Patient's reports this morning he was ?very confused.He has a history of an LVAD, which she has had for approximately 10 years. Prior to his LVAD patient reports he had approximately 10 stents. He also endorses a history basal cell and squamous cell carcinoma, diabetes, and takes a blood thinner. Patient denies any numbness tingling, weakness, or recent fevers. Labs Ordered: CBC, CMP, PTT, INR, UA Imaging Ordered: CT brain Medications Ordered: None necessary Results: Patient's white blood cell count was 7.5, his hemoglobin was 12.0, his hematocrit 36.7. Patient's PT was 16.7 seconds, his INR was 1.4 (this is low for patient but he reports has a coordinator monitoring his INR and making adjustments through the LVAD department at [place]). His chemistry indicates a sodium of 135, BUN of 25, GFR of 58, glucose of 227, AST is 60, ALT of 70. Patient's urinalysis indicates protein of 1+. Pt's CT scan indicates No acute intracranial findings. Diagnosis: dizziness Consults: 1899- LVAD coordinator, Dr. Berry. He inquired about pt's lab results and reports his work-up is reassuring. Dr. Berry reports he is comfortable with pt being discharged home, as long as pt and his are comfortable with this plan. Patient Education/Shared MDM: Results of lab work and imaging shared with patient and his . He reports he has not had any more episodes of fogginess or dizziness while here in the ER. After extensive discussion between RADIO DIVISION LIEUTENANT, pt and his , there is mutual agreement that pt can be discharged home. Patient strongly advised to maintain hydration status upon discharge and follow-up with his PCP on , as planned. He will not be prescribed any new medications at time of discharge. Strict return precautions provided. Patient verbalized understanding and is in agreement with plan. Vital signs stable at time of discharge. All questions answered. Differential Diagnosis Differential diagnosis: Likely altered mental status, subarachnoid hemorrhage and other (vertigo, dizziness) Lab Data Attestation: I reviewed the patient's lab results. 11/06/24 16:35 11/06/24 16:35 Labs: Lab Results 11/06/24 11/06/24 Range/Units 16:35 16:49 WBC 7.5 (4.5-10.0) K/mm3 RBC 3.81 L (4.6-6.20) M/mm3 Hgb 12.0 L (14.0-18.0) g/dL Hct 36.7 L (42.0-52.0) % MCV 96.3 (80-100) fl MCH 31.5 (26-34) pg MCHC 32.7 (32-36) g/dl RDW 14.3 (11.5-14.5) % Plt Count 180 (150-375) k/mm3 MPV 10.1 (7.4-10.4) fl Immature Gran % (Auto) 0.4 (0-0.5) % Neut % (Auto) 66.3 (45.5-73.1) % Lymph % (Auto) 11.7 L (18.3-44.2) % Citrus % (Auto) 12.0 H (2.6-8.5) % Eos % (Auto) 8.4 H (0-4.4) % Baso % (Auto) 1.2 (0.2-1.2) % Lymph # (Auto) 0.88 L (0.9-3.2) K/mm3 Citrus # (Auto) 0.9 H (0.1-0.6) K/mm3 Eos # (Auto) 0.6 H (0-0.3) K/mm3 Baso # (Auto) 0.1 (0.0-0.1) K/mm3 Abs Immat Gran (auto) 0.03 (0.00-0.031) K/mm3 Absolute Neuts (auto) 5.0 (1.3-6.7) K/mm3 Absolute Nucleated RBC 0.000 (0.0-0.012) K/mm3 Nucleated RBC % 0.0 (0.0-0.2) % PT 16.7 H (11.1-14.7) Seconds INR 1.4 APTT 34.5 (22.3-36.8) Seconds Sodium 135 L (137-145) mmol/L Potassium 4.6 (3.4-5.0) mmol/L Chloride 104 (98-107) mmol/L Carbon Dioxide 25 (22-30) mmol/L Anion Gap 6 (4-12) mmol/L BUN 25 H D (9-20) mg/dL Creatinine 1.21 (0.7-1.3) mg/dL Estim Creat Clear Calc 57 ml/min Estimated GFR 58 L (59 - ) Glucose 227 H (65-110) mg/dL Calcium 8.5 (8.4-10.2) mg/dL Total Bilirubin 0.7 (0.2-1.3) mg/dL AST 60 H (17-59) U/L ALT 70 H (6-50) U/L Alkaline Phosphatase 107 (38-126) U/L Total Protein 6.8 (6.3-8.2) g/dL Albumin 3.9 (3.5-5.1) g/dL Urine Color Yellow (Yellow) Urine Appearance Clear (Clear) Urine pH 6.5 (5.0-9.0) Ur Specific [place] 1.016 (1.001-1.035) Urine Protein 1+ H (Negative) mg/dL Urine Glucose (UA) Negative (Negative) mg/dL Urine Ketones Negative (Negative) mg/dL Ur Blood (Man) Negative (Negative) Urine Nitrate Negative (Negative) Urine Bilirubin Negative (Negative) Urine Urobilinogen 1.0 (<2.0) mg/dL Leukocyte Esterase Rfl Negative (Negative) YAMILA/UL Urine RBC 0-2 (0-2) /hpf Urine WBC 0-5 (0-3) /hpf Ur Squamous Epith Cells None seen (Few) /hpf Urine Bacteria None seen /hpf Urine Casts 0-2 Imaging Data Attestation: I personally reviewed and interpreted this imaging study as follows: Radiologist's impression: Impressions Head CT 11/06/24 18:33 IMPRESSION: No acute intracranial findings. Discharge Plan Discharge Clinical Impression: Dizziness, Brain fog Patient Disposition: Home Condition: Guarded Prognosis Instructions: Antibiotic Form, Lightheadedness (ED), Dizziness (ED) Additional Instructions: Please return to the ER with any worsening symptoms. Follow-up with primary care provider on , as scheduled. Take all regularly scheduled medications as prescribed. Patient Language: Romansh Prescriptions: No Action losartan 50 mg Tablet 100 mg PO DAILY carvedilol 25 mg Tablet 25 mg PO BID aspirin 325 mg Tablet 325 mg PO DAILY allopurinol 100 mg Tablet 100 mg PO DAILY acetaminophen 650 mg Tablet 650 mg PO Q6H PRN (Reason: Pain) ergocalciferol (vitamin D2) 50,000 unit Tablet 1 unit PO WEEKLY levothyroxine 75 mcg Tablet 75 mcg PO DAILY isosorbide mononitrate 60 mg Tablet Extended Release 24 Hr 90 mg PO DAILY amlodipine 10 mg Tablet 10 mg PO DAILY insulin aspart U-100 [Novolog U-100 Insulin aspart] 100 unit/mL Solution 1 sliding scale dose SUBCUT USEASDIRECTD ferrous sulfate 325 mg (65 mg iron) Tablet 325 mg PO DAILY hydralazine 50 mg Tablet 50 mg PO TID albuterol sulfate 90 mcg/actuation Hfa Aerosol Inhaler 2 puff INHALATION QID Basaglar KwikPen U-100 Insulin 100 unit/mL (3 mL) Insulin Pen 30 unit SUBCUT HS Pancrelipase 8,000-30,000- 30,000 unit Tablet 3 tablet PO TID nitroglycerin 0.4 mg Tablet, Sublingual 0.4 mg SUBLINGUAL Q5-15M PRN (Reason: Chest Pain) magnesium oxide 400 mg magnesium Capsule 800 mg PO BID Adults Multivitamin 18 mg iron-400 mcg-25 mcg Tablet 1 tablet PO DAILY torsemide [Demadex] 20 mg Tablet 20 mg PO QAM trazodone [Desyrel] 50 mg Tablet 50 mg PO HS PRN (Reason: Sleep) warfarin [Coumadin] 4 mg Tablet 5 mg PO DAILY tamsulosin [Flomax] 0.4 mg Capsule 0.4 mg PO DAILY pantoprazole [Protonix] 40 mg Tablet,Delayed Release (Dr/Ec) 40 mg PO QAM rosuvastatin [Crestor] 20 mg Tablet 20 mg PO DAILY Stelara 45 mg/0.5 mL Solution 45 mg SUBCUT ONCE Rx Instructions: every three months Follow-up/Referrals: Gayle,ODELL Rivera [Primary Care Provider] - Time of Disposition: 19:36
[2024-11-06 17:45] VITALS: BP 105/56; PULSE 65; RESP 18; TEMP 37.1; O2SAT 98
[2024-11-06 18:00] VITALS: BP 148/102; PULSE 63; RESP 18; TEMP 36.6; O2SAT 99
[2024-11-06 20:01] VITALS: BP 143/99; PULSE 68; RESP 18; TEMP 36.6; O2SAT 99
== END 2024-11-06 20:02 | disposition home or self-care (01) ==
PROVIDERS: Emergency Medicine; Emergency Provider Registered Nurse; PCP Nurse Practitioner
DX: R42 Dizziness and giddiness (principal); R41.89 Other symptoms and signs involving cognitive functions and awareness; E11.9 Type 2 diabetes mellitus without complications; Z95.811 Presence of heart assist device; Z85.828 Personal history of other malignant neoplasm of skin; Z79.899 Other long term (current) drug therapy; Z79.82 Long term (current) use of aspirin; Z79.4 Long term (current) use of insulin; Z79.01 Long term (current) use of anticoagulants; Z79.620 Long term (current) use of immunosuppressive biologic
CPT/HCPCS: 36415; 70450; 80053; 81001; 85025; 85610; 85730; 93005; 99284

== ENCOUNTER 2024-12-09 02:03 | Emergency (ER) | payer MEDICARE, SELFPAY ==
--- NOTE | ~2024-12-09 | CT_ITS ---
CT head without contrast Indication: Visual hallucinations COMPARISON: 11/06/2024 Technique: Serial scans were obtained through the brain without the administration of contrast. Dose reduction technique was used on this scan by utilizing automated exposure control and iterative recon struction technique. The dose-length product (DLP) was 681.00 mGy-cm. Findings: There is no evidence of intracranial hemorrhage, mass lesion, or acute infarct. The ventri cles and subarachnoid spaces are dilated, consistent with mild atrophy. Stable small lacunar infarct in the left basal ganglia region. Minimal low attenuation regions are seen within the periventricular white matter bilaterally, likely representing changes from chronic microvascular ischemic disease. T here is no evidence of edema, mass effect or midline shift. The visualized paranasal sinuses and ma stoid air cells are clear. Impression: No intracranial hemorrhage, mass, or acute infarct. Stable left basal ganglia lacunar infarct. Atrophy and chronic white matter changes, as above. Reviewed, dictated and finalized at location . Impression: No intracranial hemorrhage, mass, or acute infarct. Stable left basal ganglia lacunar infarct. Atrophy and chronic white matter changes, as above.
--- NOTE | ~2024-12-09 | XR_ITS ---
Portable chest x-ray Comparison: 06/30/2020 Clinical History: Infection Findings: Right-sided central venous line is in satisfactory position. Lungs are clear, without foca l consolidation or pleural effusion. Cardiomediastinal silhouette is stable, with left ventricular a ssist device and pacemaker device. Bones and soft tissues are unremarkable. Impression: Clear lungs. Right-sided central venous line. Left ventricular assist device and pacemaker device in place. Reviewed, dictated and finalized at location M. Impression: Clear lungs. Right-sided central venous line. Left ventricular assist device and pacemaker device in place.
--- OUTSIDE RECORDS SUMMARY | 2024-12-09 02:07 | XMS_ITS | Encounter Summary ---
Author Organization [facility] Healthcare Address [address] [place] [address] Care Team Providers Care Compressor Operator Name Role Phone Suresh Verma MD Unavailable [phone] Pao Allen RN Unavailable [phone] Tika Araujo MD Primary Care Provider [phone] Emmy Alicea Unavailable Unavailable Americo Mcneil MD Unavailable Korey Warren [facility] Unavailable Unavail able Encounter Details Date Type Department Care Team (Late st Contact Info) Description 06/02/2021 Telephone [facility] Transplant Heart [address] [facility] [address] [phone] [place] [address] Erna Dent Social History Tobacco Use Types [...] on file 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 Gender Identity Not on file Sexual Orientation [...] documented as of this encounter Care Teams Compressor Operator Relationship Specialty Start Date End Date Tika Araujo MD PCP - General Nurse Practitioner 03/27/20 Americo Mcneil MD [address] [facility] [id number] [place] [address] PCP - Home Infusion Attending Infectious Diseases 10/15/24 Suresh Verma MD Primer Supervisor Transplant 09/16/18 Pao Allen, RN VAD Coordinator Transplant 03/20/19 Emmy Alicea Primary Feather Renovator Transplant 08/14/24 Korey Warren, [facility] Pharmacist Pharmacy 10/23/24 documented as of this encounter
--- OUTSIDE RECORDS SUMMARY | 2024-12-09 02:07 | XMS_ITS | Encounter Summary ---
Author Organization [facility] Healthcare Address [address] [place] [address] Care Team Providers Care Chief Of Field Operations Name Role Phone Suresh Verma MD Unavailable [phone] Pao Allen RN Unavailable Tika Araujo MD Primary Care Provider [phone] Emmy Alicea Unavailable Unavailable Americo Mcneil MD Unavailable [phone] Korey Warren [facility] Unavailable Unavail able Encounter Details Date Type Department Care Team (Late st Contact Info) Description 12/08/[address] [facility] Transplant Heart [address] [facility] [address] [place] [address] Courtney Bonilla, SANKET [address] [facility] [address] [place], [place] [id number] Social History Tobacco Use Types Packs/Day Years Used Date Smoking Tobacco: Never Passive Smoke Exposure: Never Smokeless Tobacco: Never Alcohol Use Standard Drinks/Week Comments No 0 (1 standard drink = 0.6 oz pur e alcohol) [facility] Utilities Answer Date Recorded In the past 12 months has [employer], gas, oil, or water company threatened [...] often do you attend chur ch or temple services? 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 Hallucinating a little bit. Had skin surgery yesterday and pain is at 7-8. Returned phone call to pt. Pt states he has been hallucinating for the last 2 hours, this just happened suddenly. When his was walking out of the kitchen he only saw 1/2 of his head. Pt stateshe is seeing different colors, lines, shapes and chains that are not there. He denies any headaches, weakness on one side of his body or facial drooping. Discussed his BP may be elevated due to his pain. Pt states that a couple days ago he had a spot of basal cell carcinoma removed from his forehead and this is causing him pain at this site. He has stitches. Per pt he asked for some pain medications after the procedure but due to the risk of falling, the doctor didn't want to prescribe any pain medications. Pt is only taking tylenol. Pt asked how to tell if the site may be bleeding. Discussed if there was blood coming out of area or swelling around the site. Pt states he has neither of those. Pt states he plans to call the sourcing analyst to ask about medications and if the hallucinations could be due to the surgery for his basal cell carcinoma. Advised pt to proceed to ER for evaluation. Pt verbalized understanding. 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 documented as of this encounter Care Teams Chief Of Field Operations Relationship Specialty Start Date End Date Tika Araujo MD PCP - General Nurse Practitioner 03/27/20 Americo Mcneil MD [address] [id number] [place] [address] PCP - Home Infusion Attending Infectious Diseases 10/15/24 Suresh Verma MD Java Web User Interface Developer Transplant 09/16/18 Pao Allen, RN VAD Coordinator Transplant 03/20/19 Emmy Alicea Primary Cell Operation Supervisor Transplant 08/14/24 Korey Warren [facility] Pharmacist Pharmacy 10/23/24 documented as of this encounter
--- OUTSIDE RECORDS SUMMARY | 2024-12-09 02:07 | XMS_ITS | Encounter Summary ---
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 Primary Transportation Consultant Transplant 08/14/24 Korey Warren, [facility] Pharmacist Pharmacy 10/23/24 documented as of this encounter
--- OUTSIDE RECORDS SUMMARY | 2024-12-09 02:07 | XMS_ITS ---
Author Organization [facility] Virtual Care Address [address] [place] [address] Phone Care Team Providers Care Coal Grader Name Role Phone Suresh Verma MD Unavailable [phone] Pao Allen RN Unavailable [phone] Tika Araujo MD Primary Care Provider [phone] Emmy Alicea Unavailable Unavailable Americo Mcneil MD Unavailable [phone] Korey Warren [facility] Unavailable Unavail able Home Infusion Status:Enrolled (Active) Start date:2024 Enrollment date:2024 Related service episodes:RxHI Anti-Infective - DALVANCE 1500 mg IV Every 14 Days (Active) Overview Pt on drug holiday Continued Care and Services Coordination
--- OUTSIDE RECORDS SUMMARY | 2024-12-09 02:07 | XMS_ITS | Encounter Summary ---
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 Gender Identity Not on file Sexual Orientation [...] documented as of this encounter Care Teams Drum Barker Operator Relationship Specialty Start Date End Date Tika Araujo MD PCP - General Nurse Practitioner 03/27/20 Americo Mcneil MD [address] [facility] [place] [id number] [place] [address] PCP - Home Infusion Attending Infectious Diseases 10/15/24 Suresh Verma 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
--- OUTSIDE RECORDS SUMMARY | 2024-12-09 02:07 | XMS_ITS | Clinical Summary ---
Author Organization [facility] Address [address] [place] [address] Care Team Providers Care Parts Counter Clerk Name Role Phone Araceli Perez MD Unavailable Lance Hernandez MD Unavailable [phone] Timmy Leblanc MD Unavailable [phone] Ibrahima Wade MD Unavailable [phone] Obi Sharma OD Unavailable [phone] Americo Mcneil MD Unavailable [phone] Suresh Verma MD Unavailable [phone] Tika Araujo NP Primary Care Provider [phone] Allergies Active Allergy Reactions Criticality Noted Date Comments Amoxicillin Hives Low 08/15/2019 Ampicillin-Sulbactam Sodium Diarrhea,Hives,Itchin g,Rash High 09/04/2021 Methotrexate Other (see comment) 02/24/2022 Sulfa Antibiotics Lab Results High 11/28/2019 Liver function Vancomycin Other (see comment),Itching,Naus ea Only Medium 11/05/2021 Medications Pediatric Multiple Vit-C-FA (CHEWABLE ANTONY CHILDRENS) tablet Chew 1 tablet by mouth daily. Active torsemide 20 MG tablet Take 1 tablet (20 mg total) by mouth daily as needed. 02/29/20 21 Active Glucose Blood (CONTOUR NEXT TEST) test stripIndications: Type 2 diabetes mellitus without complication, with long-term current use of insulin ([facility] HHS/HCC) Use to check blood sugars TID 300 strip 3 02/25/20 22 Active normal saline 0.9 % injection As needed for SASH protocol as needed for line care 03/08/20 22 Active CREON 93666-96860 units capsuleIndication s:Pancreatic insufficiency (HHS/HCC) TAKE TWO CAPSULES WITH EACH MEAL AND SNACK DAILY. 300 capsule 2 04/26/20 22 Active dalbavancin (DALVANCE) 500 MG injection Inject 75 mLs (1,500 mg total) into the vein every 14 (fourteen) days. 10/08/19 23 Active acetaminophen (TYLENOL) 325 MG tablet Take 2 tablets (650 mg total) by mouth every 6 (six) hours as needed for Pain. Active Insulin Pen Needle (B-D ULTRAFINE III SHORT PEN) 31G X 8 MM MiscIndications:T ype 2 diabetes mellitus without complication, with long-term current use of insulin ([facility] HHS/HCC) USE DAILY WITH NOVOLOG 90 each 3 05/24/20 23 Active nitroglycerin (NITROSTAT) 0.4 MG SL tabletIndications :LVAD (left ventricular assist device) present ([facility] HHS/HCC),Chronic systolic heart failure ([facility] HHS/HCC) Use one tablet by mouth every 5 minutes for chest pain. Max of 3 doses within 15 minutes. 50 tablet 3 07/20/19 24 Active Glucose Blood (CONTOUR NEXT TEST) test stripIndications: Type 2 diabetes mellitus without complication, with long-term current use of insulin ([facility] HHS/[facility]) TESTS 4 TIMES A DAY 300 strip 5 01/12/20 24 Active levoFLOXacin (LEVAQUIN) 750 MG tablet Take 1 tablet (750 mg total) by mouth. 04/20/20 24 Active ferrous sulfate EC 325 (65 Fe) MG tabletIndications :Iron deficiency anemia, unspecified iron deficiency anemia type TAKE 1 TABLET BY MOUTH EVERY MORNING WITH BREAKFAST (TAKE WITH VITAMIN C TO HELP WITH ABSORPTION) 90 tablet 1 06/14/19 25 Active insulin lispro, 1 Unit Dial, (ADMELOG SOLOSTAR) 100 UNIT/ML injection (PEN)Indications: Type 2 diabetes mellitus without complication, with long-term current use of insulin ([facility] HHS/HCC) Inject 6-20 units into the skin as needed based on sliding scale 15 mL 7 06/19/19 25 Active tamsulosin (FLOMAX) 0.4 MG CapIndications:Sl ow urinary stream TAKE 1 CAPSULE BY MOUTH EVERY DAY 90 capsule 3 07/30/19 25 Active carvedilol (COREG) 12.5 MG tablet Take 1 tablet (12.5 mg total) by mouth 2 (two) times daily. 06/29/19 25 026 Active isosorbide mononitrate ER (IMDUR) 60 MG 24 hr tablet Take 1 tablet (60 mg total) by mouth daily. Active fidaxomicin (DIFICID) 200 MG Tab Take 200 mg by mouth 2 (two) times daily. 09/01/19 25 Active sacubitril-valsar mosqueda (ENTRESTO) 97-103 MG tablet Take 1 tablet by mouth 2 (two) times daily. 09/01/19 25 Active spironolactone (ALDACTONE) 25 MG tablet Take 1 tablet (25 mg total) by mouth daily. 09/02/19 25 026 Active warfarin (COUMADIN) 3 MG tablet Take 1 tablet (3 mg total) by mouth. 09/02/19 25 Active warfarin (COUMADIN) 4 MG tablet Take 1 tablet (4 mg total) by mouth. 09/01/19 25 Active allopurinol (ZYLOPRIM) 100 MG tabletIndications :Hx of gout Take 1 tablet (100 mg total) by mouth daily. 90 tablet 1 09/05/19 25 Active atorvastatin (LIPITOR) 40 MG tabletIndications :Hyperlipidemia, unspecified hyperlipidemia type Take 1 tablet (40 mg total) by mouth daily. 90 tablet 1 09/05/19 25 Active levothyroxine (SYNTHROID) 75 MCG tabletIndications :Hypothyroidism, unspecified type TAKE 1 TABLET BY MOUTH EVERY DAY 90 tablet 09/18/19 25 Active traZODone (DESYREL) 50 MG tabletIndications :Insomnia, unspecified type Take 1.5 tablets (75 mg total) by mouth daily. 09/19/19 25 Active RYBELSUS 14 MG tabletIndications :Diabetes Mellitus,Weight Loss TAKE 1 TABLET BY MOUTH DAILY. INDICATIONS: DIABETES, WEIGHT LOSS 90 tablet 1 09/28/19 25 Active pantoprazole EC (PROTONIX) 40 MG tabletIndications :Gastroesophageal reflux disease, unspecified whether esophagitis present TAKE 1 TABLET BY MOUTH EVERY DAY 90 tablet 1 10/13/19 25 Active insulin glargine (BASAGLAR KWIKPEN) 100 UNIT/ML injection (PEN)Indications: Type 2 diabetes mellitus without complication, with long-term current use of insulin ([facility]/HCC HHS/HCC) INJECT 30 TO 50 UNITS UNDER THE SKIN ONCE NIGHTLY 45 mL 1 10/18/19 25 Active PARoxetine (PAXIL) 20 MG tabletIndications :Anxiety TAKE 1 TABLET BY MOUTH EVERY DAY 90 tablet 1 11/21/19 25 Active PARoxetine (PAXIL) 20 MG tabletIndications :Anxiety take 1 tablet by mouth every day 90 tablet 1 01/13/20 24 025 Discontinued Active Problems Problem Noted Date Diagnosed Date Transaminitis 09/18/2024 Assessment & Plan (09/18/2024 4:04 PM CDT): Noted from labs ordered by his specialist that his AST and ALT are going up. Recommend patient discuss with ID and cardiology to see if they believe this is secondary to a side effect to his medications. 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 CT scan of his abdomen/pelvis in July did not note any abnormal findings to his liver. No RUQ pain, itchy skin, or jaundice. Pancreatic insufficiency ([facility]/HCC) 01/24/2024 Overview (01/24/2024): Taking Creon with each meal and snacks. Assessment & Plan (01/24/2024 10:28 PM CDT): Chronic condition, controlled with use of Creon. No changes needed at this time. Anxiety and depression 01/24/2024 Overview (01/24/2024): Well controlled with Paxil 10mg daily. Assessment & Plan (01/24/2024 10:34 PM CDT): Chronic condition, controlled. No changes needed at this time. Anticoagulated on Coumadin 01/24/2024 Overview (01/24/2024): Managed by cardiology. No active bleeding or current issues. Assessment & Plan (01/24/2024 10:36 PM CDT): Continue to follow with cardiology for management of INR/coumadin dosing. Obesity (BMI 35.0-39.9 without comorbidity) 12/29 Assessment & Plan (01/24/2024 11:13 PM CDT): Encourage following a healthy well balance diet and staying active. BPH (benign prostatic hyperplasia) 03/15/2023 Overview (01/24/2024): Chronic condition that is controlled with Tamsulosin . Infection associated with dr roblero of left ventricular assist device (LVAD) 11/18/2021 Overview (01/24/2024): Following with infectious disease. Has PICC still in place and he is receiving IV antibiotic and is on oral antibiotic.. Has a home health nurse coming to his home weekly. Home health nurse sent a photo to his ID provider due to some discoloration earlier today due to change around his drive line site and is warm to touch. Denies fever or chills. Currently receiving Dalvance every 14 days and oral Minocycline. Assessment & Plan (01/24/2024 10:03 PM CDT): Continue to follow with ID as directed and is awaiting to here back from ID in regards to recommendation on his skin changes around his drive line sight. Wound infection 09/09/2021 EZRA (obstructive sleep apnea) 10/22/2020 Overview (01/24/2024): ON CPAP Assessment & Plan (01/24/2024 10:29 PM CDT): Continue CPAP Localized osteoarthritis of right knee 0 Chronic pain of both knees 01/03/2020 Localized osteoarthritis of left knee 01/03/2020 Chronic systolic heart failure ([facility]/HCC HHS/HCC) 06/14/2018 Overview (11/28/2019): Last Assessment & Plan: -chronic systolic end stage heart failure -exam appears euvolemic and LVAD appears to be functioning appropriately -suspect that presenting CP 2/2 poorly controlled BP -continue asa/losartan and coreg/nitrate doses increased -add home torsemide for improved BP control -consider addition of low dose norvasc to optimize BP -echo showed EF 45% and AV opening/good LVAD fxn -continue low sodium diet -tele Ischemic cardiomyopathy 02/08/2018 LVAD (left ventricular isacc t device) present ([facility]) 02/08/2018 Overview (01/24/2024): Status post HeartMate III left ventricular assist device as destination therapy on April 12, 2015 for underlying [employer] [place] [employer] class IV heart failure Patient was implanted in March 2015 Assessment & Plan (01/24/2024 9:57 PM CDT): Continue to follow up with cardio as directed. Cardiac resynchronization th erapy defibrillator (SHIPPING HAND-D) in place 12/30/2017 Overview (11/28/2019): Generator at EoL Chronic renal insufficiency, stage III (moderate ) 02/04/2014 Overview (11/28/2019): Last Assessment & Plan: Stage 3 CKD -Cr remains stable and in baseline range Hypothyroidism 02/04/2014 Overview (01/24/2024): Chronic condition, on thyroid replacement. Due for TSH check. Assessment & Plan (01/24/2024 9:50 PM CDT): Will recheck TSH to be sure his dose is current. Insomnia 02/04/2014 Overview (01/24/2024): Chronic condition. Is sleeping well with use of Trazodone nightly. Assessment & Plan (09/18/2024 4:08 PM CDT): Requesting a slight increase on his dose of trazodone to help with insomnia. Patient can increase from 50 to 75 mg nightly. Assessment & Plan (01/24/2024 9:51 PM CDT): Chronic condition, controlled. No changes needed at this time. Renal osteodystrophy 02/04/2014 Iron deficiency anemia 01/07/2014 Overview (01/24/2024): .Hx of ELISEO. On iron replacement. Assessment & Plan (01/24/2024 9:55 PM CDT): Will recheck iron levels and follow CAD in [place] artery 01/07/2014 Overview (11/28/2019): Coronary artery disease with history of coronary artery bypass graft with a MARIN to the LAD and free radial graft to obtuse marginal with multiple subsequent PCI to the right coronary artery. Last Assessment & Plan: Admitted with chest pain relieved in setting [...] mg daily and carvedilol 12.5 mg bid. Gastroesophageal reflux disease without esophagi tis 01/07/2014 Overview (01/24/2024): Chronic condition and well controlled with pantoprazole and dietary changes. Assessment & Plan (01/24/2024 10:08 PM CDT): Chronic condition, controlled. No changes needed at this time. Resume Omeprazole 40mg dailuy. Hyperlipidemia 01/07/2014 Overview (11/28/2019): Hyperlipidemia Peripheral vascular disease, unspecified 014 Overview (11/28/2019): Converted unresolved ICD9, potential mismatch. PVD Arthropathic psoriasis, unspecified ([facility] /[facility]) 01/07/2014 Overview (01/24/2024): Follows with rheumatology Assessment & Plan (01/24/2024 9:54 PM CDT): Continue to follow up with rheumatology as directed. Type 2 diabetes mellitus wit h chronic kidney disease, with long-term current use of insulin ([facility]) 01/07/2014 Overview (09/18/2024): Last A1C 7.1 in September Currently taking short and long acting insulin and Rybelsus 14mg daily. Denies any hypoglycemic episodes. Has been working on eating healthier. Denies any polyuria, polydipsia, or polyphagia. Diabetic eye exam is up to date. Assessment & Plan (09/18/2024 4:02 PM CDT): A1C 7.1 in September. He is going to increase his short acting insulin up by 2-4 units with each meal if blood sugar > 180. Monitor for hypoglycemia. Consider adding on an SGLT2. He is going to check with cardiology Goal for blood sugars to be between 80-130 fasting and 180 or less two hours after eating. Be sure you have a diabetic eye exam yearly. Encourage daily foot checks, avoid walking around barefoot. Goal for A1C to below 7 Urine Microalbumin- 01/24/24, was ordered, needing one still. LORENA/ARB- yes Statin-yes Foot exam- 01/24/24 decrease sensation to top of feet Assessment & Plan (01/24/2024 1:36 PM CDT): A1C improved to 5.9. No med changes needed at this time. Goal for blood sugars to be between 80-130 fasting and 180 or less two hours after eating. Be sure you have a diabetic eye exam yearly. Encourage daily foot checks, avoid walking around barefoot. Goal for A1C to below 7 Urine Microalbumin- 01/24/24 order placed LORENA/ARB- yes Statin-yes Foot exam- 01/24/24 decrease sensation to top of feet Lung mass 10/13/2013 Overview (11/28/2019): Pulmonary nodule Proteinuria 10/13/2013 Overview (11/28/2019): PROTEINURIA Vitamin D deficiency 08/16/2013 Overview (11/28/2019): VITAMIN D DEFICIENCY NOS Benign hypertension 05/18/2006 Overview (01/24/2024): Currently well controlled. Cardiac meds being managed by cardiology team. Assessment & Plan (08/13/2024 1:04 PM CDT): Chronic condition not controlled today but typically his BP is < 140/90. He wlll monitor at home closely and report back his home BP readings to us and his medication are being managed from his LVAD team as well. Goal for BP to stay below 140/90. Encourage lifestyle modifications to include healthy eating, decrease salt and caffeine in diet, routine exercise, and weight loss Assessment & Plan (01/24/2024 10:26 PM CDT): Chronic condition, controlled. No changes needed at this time. Goal for BP to stay below 140/90. Encourage lifestyle modifications to include healthy eating, decrease salt and caffeine in diet, routine exercise, and weight loss, Resolved Problems Problem Noted Date Diagnosed Date Resolved Date Type 2 diabetes mellitus wit h stage 3a chronic kidney disease, with long-term current use of insulin ([facility]) 01/24/2024 01/24/2024 Multiple falls 03/31/2022 01/24/2024 Weakness 03/31/2022 01/24/2024 LVAD (left ventricular isacc t device) present ([facility]) 02/08/2018 01/24/2024 Overview (01/24/2024): Status post HeartMate III left ventricular assist device as destination therapy on April 12, 2015 for underlying [employer] [place] [employer] class IV heart failure Last Assessment & Plan: End stage HF s/p ICD (MDT), s/p [...] physiology -strict I/Os, daily standing weights, telemetry VT (ventricular tachycardia) ([facility]) 12/30/2017 08/20/2021 Overview (11/28/2019): Occurring before LVAD implantation - none since Last Assessment & Plan: -SHIPPING HAND-D device (Metronic-- implanted prior to lvad. Pt is not PPM dependent and decision made to not proceed with generator change in December 2017) -continue tele Constipation 08/15/2014 01/24/2024 Hypoxemia 08/15/2014 05/30/2022 Overview (11/28/2019): Converted unresolved ICD9, potential mismatch. Converted unresolved ICD9, potential mismatch. Hyperkalemia 02/04/2014 05/30/2022 Psoriasis with arthropathy ([facility]) 4 01/24/2024 Overview (01/24/2024): patietn reports being on stelera injections Last Assessment & Plan: - Last Stelera dose 08/15/20 Encounters Date Type Department Care Team Description 12/04/[address] [place] [address] Tika Araujo NP Referral Request 11/27/[address] [place], [place] [address] Tika Araujo NP Appointment Request (AWV scheduled) 11/26/[address] [place], [place] [address] Tika Araujo NP Refill Request 11/23/2024 Scan [facility] Scanned, Doc [facility] (SCAN) 11/22/2024 Scan [facility] SR[facility] Scanned, Doc Med [facility] 11/12/2024 5:03 PM CDT - 11/12/2024 11:59 PM CDT Hospital Encounter [facility] [place] [address] Suresh Verma MD Discharge Disposition: Home or Self Care (Routine Discharge) 11/12/2024 Orders Only [facility] [place] [address] Suresh Verma MD 11/06/2024 Scan [facility] SRVCS Scanned, Doc [facility] CT (SCAN) 11/06/2024 Telephone [facility] Family Medicine [facility] [address] [facility] [address] [place] [address] Tika Araujo NP Problem 10/25/2024 Scan [facility] SR[facility] Scanned, Doc [facility] 10/23/2024 6:13 PM CDT - 10/23/2024 11:59 PM CDT Hospital Encounter [facility] [place] [address] Suresh Verma MD Discharge Disposition: Home or Self Care (Routine Discharge) 10/23/2024 6:11 PM CDT - 10/23/2024 6:12 PM CDT Hospital Encounter [facility] [place] [address] Suresh eVrma MD Discharge Disposition: Home or Self Care (Routine Discharge) 10/23/2024 Orders Only [facility] [place] [address] Suresh Verma MD 10/01/2024 Scan [facility] SRVCS Scanned, Doc [facility] (SCAN) 09/24/2024 2:16 PM CDT - 09/24/2024 11:59 PM CDT Hospital Encounter [facility] [place] [address] Suresh Verma MD Discharge Disposition: Home or Self Care (Routine Discharge) 09/24/2024 Orders Only [facility] [place] [address] Suresh Verma MD 09/18/2024 2:20 PM CDT Office Visit [address] [place] [address] Tika Araujo NP Diabetes (Patient presents for a 4 week follow up diabetes) 09/18/2024 Travel 09/10/2024 Scan [employer] INFO SRVCS Scanned, Doc [facility] Group Lab (SCAN) 09/10/[address] [place] [address] Tika Araujo NP Question from Last 3 Months Immunizations Immunization Administration Dates Next Due Fluad influenza vaccine, Michael drivalent (aIIV4), Inactivated, adjuvanted, preservative free, 0.5 mL,IM use 05/04/2021 Fluzone High Dose (IIV, triv alent, 0.5mL) 04/20/2024 Fluzone High Dose - >Age 65 (Prefilled Syringe) 03/08/2022,02/25/2020,02/26/2019,2017,02/22/2017 Influenza (Generic) 04/05/2016, 6,02/23/2015,2010,05/15/2010,03/16/2007 Influenza Adult (Generic) 03/18/2023,04/10/2018 MODERNA COVID-19 (12+) MRNA, LNP-S, PF, 100 MCG/ 0.5 ML DOSE 08/15/2020,07/18/2020 PFIZER COVID-19 (ORIGINAL FORMULATION, PURPLE CAP) mRNA, LNP-S, PF, 30 MCG/0.3 ML DOSE 05/04/2021 Pneumococcal (Pneumovax 23) 03/06/2014, 7 Pneumococcal (Prevnar 13) 06/26/2020 Shingrix 08/25/2018,08/12/2017 Tdap (Adacel) 06/26/2020 Family History Medical History Relation Comments Arthritis Father CHF Father Heart Disease Father Hypertension Father Takotsubo cardiomyopathy Father Diabetes Mother Kidney Disease Mother Vision loss Mother Heart Attack Paternal Grandfather Heart Attack Paternal Uncle Relation Status Comments Father Mother Paternal Grandfather Paternal Uncle Social History Tobacco Use Types Packs/Day Years Used Date Smoking Tobacco: Never Passive Smoke Exposure: Past Smokeless Tobacco: Never Tobacco Cessation:Counseling Given: No Alcohol Use Standard Drinks/Week Comments Yes 0 (1 standard drink = 0.6 oz pur e alcohol) Rarely; glass of wine yearly AUDIT-C Answer Date Recorded Q1: How often do you have a drink containing alcohol? Never 08/31/2022 Q2: How many drinks containi ng alcohol do you have on a typical day when you are drinking? Patient does not drink Q3: How often do you have si x or more drinks on one occasion? Never 08/31/2022 PHQ-2 Answer Date Recorded Patient Health Questionnaire-2 Score 0 06/11/2024 PRAPARE - Transportation Answer Date Re corded In the past 12 months, has l ack of transportation kept you from medical appointments or from getting medications? No 10/29 In the past 12 months, has l ack of transportation kept you from meetings, work, or from getting things needed for daily living? 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 Sex Male 10:14 AM CDT Gender Identity Male 09/18/2024 2:31 PM CDT Sexual Orientation Straight 09/18/2024 2: 31 PM CDT Last Filed Vital Signs Vital Sign Reading Time Taken Comments Blood Pressure 108/62 09/04/2024 12:58 PM CDT Pulse 54 09/18/2024 2:31 PM CDT Temperature 36.8 C (98.2 F) 09/18/2024 2:31 PM CDT Respiratory Rate 18 09/18/2024 2:31 PM CDT Oxygen Saturation 99% 09/18/2024 2:31 PM CDT Inhaled Oxygen Concentration - - Weight 101.2 kg (223 lb) 09/18/2024 2:31 PM CDT Height 172.7 cm (5' 8) 09/18/2024 2:31 PM CDT Body Mass Index 33.91 09/18/2024 2:31 PM CDT Plan of Treatment Upcoming Encounters Date Type Department Care Team (Late st Contact Info) Description 12/25/2024 1:00 PM CDT Office Visit [facility] Family Medicine - [address] [address] Tika Araujo NP [phone] [address] 01/21/2025 1:20 PM CDT Office Visit [address] [address] Tika Araujo NP [phone] [address] 02/13/2025 7:00 AM CDT Office Visit [facility] [address] [place] [address] Timmy Leblanc MD [address] [place] [address] Health Maintenance Due Date Last Done Comments ASCVD LDL 11/04/2022 11/04/2021 Annual Medicare Wellness Visit 09/02/2023 08/31/2022, 06/24/2020 RSV Immunization or 60+ Years (1 - 1-dose 75+ series) 10/06/2023 Diabetes: Retinopathy Eye Exam 01/26/2024 01/25/2023, 03/02/2022, 11/07/2019, Additional history exists COVID-19 Vaccine ( season) 2024 05/04/2021, 08/15/2020, 07/18/2020 Lipid Panel 01/16/2025 03/14/2023, 11/04/2021 Postp oned from 03/14/2024 (Awaiting Documentation) Hemoglobin A1C 02/23/2025 08/23/2024, 12/2 01/2024, 01/24/2024, Additional history exists DTaP, Tdap and Td Vaccines (2 - Td or Tdap) 06/26/2030 06/26/2020 Zoster Vaccines Completed 08/25/2018, 08/12/2017 Pneumococcal Vaccine: 50+ Years Completed 06/26/2020, 03/06/2014, 03/16/2007 Hepatitis C Completed 09/22/2023 PHQ-2 (Physician [place]) Completed 06/11/2024 Meningococcal B Vaccine Aged Out No l onger eligible based on patient's age to complete this topic Meningococcal Vaccine Aged Out No breana yanna eligible based on patient's age to complete this topic RSV Immunizations Under 20 Months Aged Out No longer eligible based on patient's age to complete this topic Procedures Procedure Name Priority Date/Time Associated Diagnosis Comments OUTSIDE PT/INR (SCAN ORDER) 11/23/2024 CBC W/DIFF AUTOMATED Routine 11/12/2024 2:35 PM CDT Heart replaced by heart assist device ([facility]) PROTHROMBIN TIME, VENOUS Routine 11/12/2024 2:35 PM CDT Heart replaced by heart assist device ([facility]) COMPREHENSIVE METABOLIC PANEL Routine 11/12/2024 2:35 PM CDT Heart replaced by heart assist device ([facility]) CT GENERIC 11/06/2024 COMPREHENSIVE METABOLIC PANEL Routine 10/23/2024 12:15 PM CDT Infection of biventricular pacemaker, subsequent encounter Heart replaced by heart assist device ([facility]) CBC W/DIFF AUTOMATED Routine 10/23/2024 12:15 PM CDT Infection of biventricular pacemaker, subsequent encounter Heart replaced by heart assist device ([facility]) PROTHROMBIN TIME, VENOUS Routine 10/23/2024 12:15 PM CDT Infection of biventricular pacemaker, subsequent encounter Heart replaced by heart assist device ([facility]) OUTSIDE LAB (SCAN ORDER) 10/01/2024 OUTSIDE PT/INR (SCAN ORDER) 10/01/2024 PROTHROMBIN TIME, VENOUS Routine 09/24/2024 1:30 PM CDT Heart replaced by heart assist device ([facility]) Infection of biventricular pacemaker, subsequent encounter CBC W/DIFF AUTOMATED Routine 09/24/2024 1:30 PM CDT Heart replaced by heart assist device ([facility]) Infection of biventricular pacemaker, subsequent encounter COMPREHENSIVE METABOLIC PANEL Routine 09/24/2024 1:30 PM CDT Heart replaced by heart assist device ([facility]) Infection of biventricular pacemaker, subsequent encounter OUTSIDE PT/INR (SCAN ORDER) 09/10/2024 OUTSIDE LAB (SCAN ORDER) 09/10/2024 HEMOGLOBIN, GLYCOSYLATED Routine 01/24/2024 Type 2 diabetes mellitus with stage 3b chronic kidney disease, with long-term current use of insulin HEP C SCANNED ORDERS Routine 09/22/2023 DIABETIC RETINOPATHY EXAM (POSITIVE)(SCAN ORDER) Routine 01/25/2023 LIPID PANEL Routine 11/04/2021 from Last 3 Months or Most Recently Relevant to Health Maintenance Results * OUTSIDE PT/INR (SCAN ORDER) (11/23/2024) Only the most recent of3 resultswithin the time period is included. 11/23/2024 [facility] Scanned SCANNING Final Resu lt * (ABNORMAL) PROTIME/INR, VENOUS (11/12/2024 2:35 PM CDT) Only the most recent of3 resultswithin the time period is included. PROTIME 20.4(H) 10.2 - 12.9 SEC 11/12/2024 5:35 PM CDT [facility] INR 1.8 11/12/2024 5:35 PM CDT [facility] Comment: Recommended INR Therapeutic Goals: 2.0-3.0 Routine Therapy 2.5-3.5 Mechanical Prosthetic Valves (High Risk) 11/12/2024 2:35 PM CDT us Suresh Verma MD LABORATORY Final Result [facility] [address] [place] [address], [place] [phone] * (ABNORMAL) COMPREHENSIVE METABOLIC PANEL (11/12/2024 2:35 PM CDT) Only the most recent of3 resultswithin the time period is included. GLUCOSE 88 70 - 99 MG/DL 11/12/2024 5:40 PM CDT [facility] BUN 28(H) 7 - 18 MG/DL 11/12/2024 5:40 PM CDT [facility] CREATININE S/P/B 1.19 0.7 - 1.3 MG/DL 11/12/2024 5:40 PM CDT [facility] SODIUM S/P/B 139 136 - 145 MMOL/L 11/12/2024 5:40 PM CDT [facility] POTASSIUM S/P/B 4.4 3.5 - 5.1 MMOL/L 11/12/2024 5:40 PM CDT [facility] CHLORIDE S/P/B 110 97 - 115 MMOL/L 11/12/2024 5:40 PM CDT [facility] CO2 25.3 21 - 32 MMOL/L 11/12/2024 5:40 PM CDT [facility] CALCIUM S/P/B 8.5 8.5 - 10.1 MG/DL 11/12/2024 5:40 PM CDT [facility] BILIRUBIN TOTAL S/P/B 0.3 0.2 - 1.2 MG/DL 11/12/2024 5:40 PM CDT [facility] Comment: THIS ASSAY IS NOT RECOMMENDED FOR PATIENTS UNDERGOING TREATMENT WITH ELTROMBOPAG DUE TO THE POTENTIAL FOR FALSELY ELEVATED RESULTS. TOTAL PROTEIN S/P/B 5.9(L) 6.4 - 8.2 G/DL 11/12/2024 5:40 PM CDT [facility] ALBUMIN S/P/B 3.0(L) 3.4 - 5.0 G/DL 11/12/2024 5:40 PM T [facility] AST 64(H) 15 - 37 U/L 11/12/2024 5:40 PM T [facility] ALT 74(H) 16 - 60 U/L 11/12/2024 5:40 PM T [facility] ALKALINE PHOSPHATASE S/P/B 134 50 - 136 U/L 11/12/2024 5:40 PM T [facility] ANION GAP 3.7 2 - 10 MMOL/L 11/12/2024 5:40 PM T [facility] BUN CREATININE RATIO 23.5 6 - 26 11/12/2024 5:40 PM T [facility] A/G RATIO 1.0 1.0 - 2.0 RATIO 11/12/2024 5:40 PM T [facility] GFR ESTIMATE 63(L) >90 ML/MIN/1.7 3 M2 11/12/2024 5:40 PM T [facility] Comment: NOTE: eGFR is not calculated for patients <18 years of age or gender unknown. This is an estimated GFR calculation using the new CKD EPI creatinine equation without race and so does not require a correction factor for race. This estimated GFR should not be used for calculating drug doses. 11/12/2024 2:35 PM CDT us Suresh Verma MD LABORATORY Final Result [facility] [address] [place] [address], [place] [phone] * (ABNORMAL) CBC W/DIFF AUTOMATED (11/12/2024 2:35 PM CDT) Only the most recent of3 resultswithin the time period is included. WBC 7.36 4.5 - 11.0 x10'3/uL 11/12/2024 5:13 PM CDT [facility] RBC 3.59(L) 4.70 - 6.10 x10'6/uL 11/12/2024 5:13 PM CDT [facility] HGB 11.4(L) 14.0 - 18.0 G/DL 11/12/2024 5:13 PM CDT [facility] HCT 34.6(L) 43.0 - 54.0 % 11/12/2024 5:13 PM CDT [facility] MCV 96.4(H) 80.0 - 94.0 FL 11/12/2024 5:13 PM CDT [facility] MCH 31.8(H) 27.0 - 31.0 PG 11/12/2024 5:13 PM CDT [facility] MCHC 32.9 32.0 - 36.0 G/DL 11/12/2024 5:13 PM CDT [facility] RDW 14.3 11.5 - 14.5 % 11/12/2024 5:13 PM CDT [facility] PLT 157 130 - 400 x10'3/uL 11/12/2024 5:13 PM CDT [facility] MPV 11.1 9.3 - 12.2 FL 11/12/2024 5:13 PM CDT [facility] DIFFERENTIAL TYPE AUTOMATED DIFFERENTIAL 11/12/2024 5:13 PM CDT [facility] NEUTROPHILS % 67.5 % 11/12/2024 5:13 PM CDT [facility] LYMPHOCYTES % 11.4 % 11/12/2024 5:13 PM CDT [facility] MONOCYTES % 12.0 % 11/12/2024 5:13 PM CDT [facility] EOSINOPHILS 7.7 % 11/12/2024 5:13 PM CDT [facility] BASOPHILS 1.0 % 11/12/2024 5:13 PM CDT [facility] IMMATURE GRANS % 0.4 % 11/13/19 5:13 PM CDT [facility] ABS. NEUTROPHILS 4.97 1.80 - 7.70 x10'3/uL 11/12/2024 5:13 PM CDT [facility] ABS. LYMPHOCYTES 0.84(L) 1.00 - 4.80 x10'3/uL 11/12/2024 5:13 PM CDT [facility] ABS. MONOCYTES 0.88(H) 0.30 - 0.82 x10'3/uL 11/12/2024 5:13 PM CDT [facility] ABS. EOSINOPHILS 0.57(H) 0.04 - 0.54 x10'3/uL 11/12/2024 5:13 PM CDT [facility] ABS. BASOPHILS 0.07 0.01 - 0.08 x10'3/uL 11/12/2024 5:13 PM CDT [facility] ABS. IMMATURE GRANULOCYTES 0.03 0.00 - 0.49 x10'3/uL 11/12/2024 5:13 PM CDT [facility] 11/12/2024 2:35 PM CDT Suresh Verma MD LABORATORY Final Result [facility] [address] [place] [address], [place] [phone] * CT GENERIC (11/06/2024) Anatomical Region Laterality Modality Other 11/06/2024 [employer] [facility] Scanned SCANNING Final Resu lt * OUTSIDE LAB (SCAN ORDER) (10/01/2024) Only the most recent of2 resultswithin the time period is included. 10/01/2024 [employer] [facility] Scanned SCANNING Final Resu lt * A1C (BACK OFFICE) (01/24/2024) HGB A1C 5.9 % [address], [place] 01/24/2024 Tika Araujo NP LABORATORY Final Res ult [address], [place] [address] [place] [address], [place] [phone] * HEP C SCANNED ORDERS (09/22/2023) [facility] Scanned SCANNING Final Resu lt [facility] ONBASE * DIABETIC RETINOPATHY EXAM (POSITIVE)(SCAN) (01/25/2023) [facility] Scanned SCANNING Final Resu lt [facility] ONBASE * LIPID PANEL (11/04/2021) CHOLESTEROL 127 HDL 34 TRIGLYCERIDES 156 NON HDL CHOLESTEROL 93 CHOL/HDL RATIO 4 LDL (CALCULATED) 62 11/04/2021 [facility] Abstract LABORATORY Final Res ult from Last 3 Months or Most Recently Relevant to Health Maintenance Insurance [employer] Care Teams Parts Counter Clerk Relationship Specialty Start Date End Date Tika Araujo NP [address] [place] [address] PCP - General NURSE PRACTITIONER 03/14/24 [place] [address] [facility]. [address] [address] RHEUMATOLOGY 06/24/20 Lance Hernandez MD [address] [place] [address] DERMATOLOGY 06/24/20 Timmy Leblanc MD [address] [place] [address] FAMILY MEDICINE SPORTS MEDICINE 06/24/20 Ibrahima Wade MD [address] [place] [address] INTERVENTIONAL CARDIOLOGY 06/24/20 Obi Sharma, OD [address] [place] [address] E Learning Designer 08/18/21 Americo Mcneil MD [address] [place] [address] INFECTIOUS DISEASE 08/31/22 Suresh Verma MD [address] [place] [address] HEART & VASCULAR CARE 08/31/22
--- OUTSIDE RECORDS SUMMARY | 2024-12-09 02:07 | XMS_ITS | Clinical Summary ---
Author Organization [facility] Address [address] [place] [address] Care Team Providers Care Registration Coordinator Name Role Phone Unavailable Primary Care Provider Unavailabl e Source Comments [facility],non-owned Affiliates and Associated Physician Practices is amultiple site organization consisting of ambulatory clinics and hospital sitesin [place], [place], [place] and [place]. This disclosure is being madepursuant to the Care Everywhere program and may not contain all information available regarding this patient. 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
--- OUTSIDE RECORDS SUMMARY | 2024-12-09 02:07 | XMS_ITS ---
Author Organization [facility] Virtual Care Address [address] [place] [address] Phone Care Team Providers Care Embedded Processor Name Role Phone Suresh Verma MD Unavailable [phone] Pao Allen RN Unavailable [phone] Tika Araujo MD Primary Care Provider [phone] Emmy Alicea Unavailable Unavailable Americo Mcneil MD Unavailable Korey Warren [facility] Unavailable Unavail able RxHI Anti-Infective - DALVANCE 1500 mg IV Every 14 Days Status:Enrolled (Active) Start date:2024 Enrollment date:2024 Linked medications:dalbavancin HCl (Active) Related program episode:Home Infusion (Active) Overview Pt on drug holiday Case Team Name Relationship Phone Korey Warren [facility](Responsible Staff) Pharm acist Continued Care and Services Coordination This section includes services coordinated for RxHI Anti-Infective - DALVANCE 1500 mg IV Every 14 Days. Home Medical Care Name Services Phone [facility] Home Infusion a nd Injection [phone]
--- OUTSIDE RECORDS SUMMARY | 2024-12-09 02:07 | XMS_ITS | Encounter Summary ---
Author Organization [facility] Healthcare Address [address] [place] [address] Care Team Providers Care Feller Seam Operator Name Role Phone Suresh Verma MD Unavailable [phone] Pao Allen RN Unavailable [phone] Tika Araujo MD Primary Care Provider [phone] Emmy Alicea Unavailable Unavailable Americo Mcneil MD Unavailable [phone] Korey Warren [facility] Unavailable Unavail able Encounter Details Date Type Department Care Team (Late st Contact Info) Description 11/23/[address] [facility] Home Infusion Therapy [address] [place] [address] James Espinoza, [facility] Social History Tobacco Use Types Packs/Day Years Used Date Smoking Tobacco: Never Passive Smoke Exposure: Never Smokeless Tobacco: Never Alcohol Use Standard Drinks/Week Comments No 0 (1 standard drink = 0.6 oz pur e alcohol) [facility] Utilities Answer Date Recorded In the past 12 months has [employer], gas, oil, or water [employer] threatened to shut off services in your [...] often do you attend chur ch or yazidism services? More than 4 times per year 08/25/2024 Do you belong to any clubs o r organizations such as hoahaoism groups, unions, fraternal or athletic groups, or [...] place to sleep or slept in a alf (including now)? Patient refused 03/23/2023 Housing Stability [...] any time in the past 12 m [facility], were you homeless or living in a alf (including now)? No 08/25/2024 Personal Safety Answer Date Recorded Have you ever been in or are you currently in a harmful physical or emotional relationship or is someone making you feel afraid or unsafe? 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 Gender Identity Not on file Sexual Orientation Not on file documented as of this encounter Plan of Treatment Not on file documented as of this encounter Procedures Procedure Name Priority Date/Time Associated Diagnosis Comments SCAN - LABS 11/23/2024 12:00 AM CDT documented in this encounter Results * SCAN - LABS (11/23/2024 12:00 AM CDT) us Provider Scanning Edited Result - Final documented in this encounter Visit Diagnoses Not on filedocumented in this encounter Additional Health Concerns Infection Onset Date Last Indicated Resolved Time 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
--- OUTSIDE RECORDS SUMMARY | 2024-12-09 02:07 | XMS_ITS | Encounter Summary ---
Author Organization [facility] Address [address] [place] [address] Phone Care Team Providers Care Southeast Regional Sales Manager Name Role Phone Suresh Verma MD Unavailable Pao Allen RN Unavailable [phone] Tika Araujo MD Primary Care Provider [phone] Emmy Alicea Unavailable Unavailable Americo Mcneil MD Unavailable Korey Warren [facility] Unavailable Unavail able Encounter Details Date Type Department Care Team (Late st Contact Info) Description 11/22/2024 Telephone [facility] Cardiology [address] [facility] Advanced Medicine 8th [place] [address] [place] [address] Suresh Verma MD [address] [facility] [address] [place] [address] Social History Tobacco Use Types Packs/Day Years Used Date Smoking Tobacco: Never Passive Smoke Exposure: Never Smokeless Tobacco: Never Alcohol Use Standard Drinks/Week Comments No 0 (1 standard drink = 0.6 oz pur e alcohol) [facility] Utilities Answer Date Recorded In the past 12 months has [employer], oil, or [employer] threatened to shut off services in your [...] often do you attend chur ch or evangelical services? More than 4 times per year 08/25/2024 Do you belong to any clubs o r organizations such as denominational groups, unions, fraternal or athletic groups, or [...] any time in the past 12 m onths, were you homeless or living in a fdc (including now)? No 08/25/2024 Personal Safety Answer Date Recorded Have you ever been in or are you currently in a harmful physical or emotional relationship or is someone making you feel afraid or unsafe? Denies 08/23/2024 Sex and Gender Information Value Date Recorded Sex Assigned at Not on file Legal Sex Male 12:11 AM GLOBAL MARKETING INTERN Gender Identity Not on file Sexual Orientation Not on file documented as of this encounter Miscellaneous Notes * Telephone Encounter - Courtney Bonilla RN - 11/22/2024 10:51 AM CDT HH orders signed and faxed to [facility] at [phone] * Telephone Encounter - Marlene Fermin - 11/22/2024 10:24 AM CDT Bayron/Zamzam Collins with [facility] calling re: Plan of Care _[facility] form that was sent on 11/12/24. Calling to check on status of receiving signed form returned. 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
--- OUTSIDE RECORDS SUMMARY | 2024-12-09 02:07 | XMS_ITS | Encounter Summary ---
Author Organization [facility] Address [address] [place] [address] Phone Care Team Providers Care Faculty Physician Name Role Phone Suresh Verma MD Unavailable [phone] Pao Allen RN Unavailable [phone] Tika Araujo MD Primary Care Provider [phone] Emmy Alicea Unavailable Unavailable Americo Mcneil MD Unavailable [phone] 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 Pharmacist Pharmacy 10/23/24 documented as of this encounter
--- OUTSIDE RECORDS SUMMARY | 2024-12-09 02:07 | XMS_ITS | Encounter Summary ---
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 Gender Identity Not on file Sexual Orientation [...] documented as of this encounter Care Teams Bindery Machine Feeder Offbearer Relationship Specialty Start Date End Date Tika Araujo MD PCP - General Nurse Practitioner 03/27/20 Americo Mcneil MD [address] [facility] [phone] [place] [address] PCP - Home Infusion Attending Infectious Diseases 10/15/24 Suresh Verma MD Hearing Aid Fitter Transplant 09/16/18 Pao Allen, RN VAD Coordinator Transplant 03/20/19 Emmy Alicea Primary Gang Knife Fish Chopper Transplant 3/18/25 Korey Warren, [facility] Pharmacist Pharmacy 10/23/24 documented as of this encounter
--- OUTSIDE RECORDS SUMMARY | 2024-12-09 02:07 | XMS_ITS | Encounter Summary ---
Author Organization [facility] Address [address] [place] [address] Phone Care Team Providers Care Welfare Eligibility Worker Name Role Phone Suresh Verma MD Unavailable [phone] Pao Allen RN Unavailable Tika Araujo MD Primary Care Provider [phone] Emmy Alicea Unavailable Unavailable Americo Mcneil MD Unavailable [phone] Korey Warren [facility] Unavailable Unavail able Encounter Details Date Type Department Care Team (Late st Contact Info) Description 04/23/2020 Telephone [facility] Cardiology [address] [place] [address] Medical Office Building [address] [place] [address] Melani Bobby Social History Tobacco Use Types Packs/Day Years Used Date Smoking Tobacco: Never Smokeless Tobacco: Never Alcohol Use Standard Drinks/Week Comments No 0 (1 standard drink = 0.6 oz pur e alcohol) Sex and Gender Information Value Date Recorded Sex Assigned at Not on file Legal Sex Male 12:11 AM WATER PUMP SERVICER Gender Identity Not on file Sexual Orientation [...] documented as of this encounter Care Teams Welfare Eligibility Worker Relationship Specialty Start Date End Date Tika Araujo MD PCP - General Nurse Practitioner 03/27/20 Americo Mcneil MD [address] [phone] [place] [address] PCP - Home Infusion Attending Infectious Diseases 10/15/24 Suresh Verma MD Senior Research Manager Transplant 09/16/18 Pao Allen, RN VAD Coordinator Transplant 03/20/19 Emmy Alicea Primary Diesel Pile Driver Operator Transplant 08/14/24 Korey Warren [facility] Pharmacist Pharmacy 10/23/24 documented as of this encounter
--- OUTSIDE RECORDS SUMMARY | 2024-12-09 02:07 | XMS_ITS | Encounter Summary ---
Author Organization [facility] Address [address] [place] [address] Care Team Providers Care Hood Fitter Name Role Phone Tika Araujo NP Primary Care Provider [phone] Araceli Perez MD Unavailable Lance Hernandez MD Unavailable [phone] Timmy Leblanc MD Unavailable [phone] Ibrahima Wade MD Unavailable [phone] Obi Sharma OD Unavailable [phone] Americo Mcneil MD Unavailable [phone] Suresh Verma MD Unavailable [phone] Tika Araujo NP Primary Care Provider [phone] Encounter Details Date Type Department Care Team (Late st Contact Info) Description 05/16/2023 [place] Message Enc [facility] Family Medicine - [place] [address] [address] [facility] Provider Lab results Social History Tobacco Use Types Packs/Day Years Used Date Smoking Tobacco: Never Passive Smoke Exposure: Past Smokeless Tobacco: Never Alcohol Use Standard Drinks/Week [...] Date Recorded Patient Health Questionnaire-2 Score 0 05/18/2023 PRAPARE - Transportation Answer Date Re corded [...] Sex Assigned at Male 06/12/2024 8:[address] FLUSHER DRIVER Legal Sex Male 10:14 AM CDT Gender Identity Male 09/18/2024 2:31 PM CDT Sexual Orientation Straight 09/18/2024 2: 31 PM CDT documented as of this encounter Functional Status * Over the past 2 weeks, how often have you been bothered by any of the following problems? Question Answer Date of Assessment Author Status Little interest or pleasure in doing things Not at all 05/18/2023 10:27 AM Kaylen Powell MA Act manjula Feeling down, depressed, or hopeless Not at all 05/18/2023 10:27 AM Kaylen Powell MA Active Patient Health Questionnaire-2 Score 0 05/18/2023 10:27 AM Kaylen Powell MA Active * If you checked off any problems on this questionnaire so far, Question Answer Date of Assessment Author Status How difficult have these problems made it for you to do your work, take care of things at home, or get along with other people? Not difficult at all 05/18/2023 10:27 AM Kaylen Powell MA Active documented as of this encounter Plan of Treatment Upcoming Encounters Date Type Department Care Team (Late st Contact Info) Description 12/25/2024 1:00 PM CDT Office Visit [facility] Family Medicine [place] [address] [facility] [address] [place] [address] Tika Araujo NP [address] [place] [address] 01/21/2025 1:20 PM CDT Office Visit [facility] Family Medicine - [place] [address] [place] [address] Tika Araujo NP [address] [place] [address] 02/13/2025 7:00 AM CDT Office Visit [facility] Orthopedic & Sports Medicine - [place] [address] [place] [address] Timmy Leblanc MD [address] [place] [address] documented as of this encounter Visit Diagnoses Not on filedocumented in this encounter Additional Health Concerns Assessment Noted Time PHQ-9 Depression Total Score: 4 09/01/19 23 10:59 AM CDT documented as of this encounter Care Teams Hood Fitter Relationship Specialty Start Date End Date Tika Araujo NP [address] [place] [address] PCP - General NURSE PRACTITIONER 11/28/19 01/30/24 Tika Araujo NP [address] [place] [address] PCP - General NURSE PRACTITIONER 03/14/24 [place] [address] [facility]. [address] [address] RHEUMATOLOGY 06/24/20 Lance Hernandez MD [address] [place] [place] [address] DERMATOLOGY 06/24/20 Timmy Leblanc MD [address] [place] [place] [address] FAMILY MEDICINE SPORTS MEDICINE 06/24/20 Ibrahima Wade MD [address] [place] [address] INTERVENTIONAL CARDIOLOGY 06/24/20 Obi Sharma, [address] [place] [address] Setup Technician 08/18/21 Americo Mcneil MD [address] [place] [address] INFECTIOUS DISEASE 08/31/22 Suresh Verma MD [address] [place] [address] HEART & VASCULAR CARE 08/31/22 documented as of this encounter
--- OUTSIDE RECORDS SUMMARY | 2024-12-09 02:07 | XMS_ITS | Encounter Summary ---
Author Organization [facility] Address [address] [place] [address] Phone Care Team Providers Care Sweeper Cleaner Industrial Name Role Phone Suresh Verma MD Unavailable [phone] Pao Allen RN Unavailable [phone] Tika Araujo MD Primary Care Provider [phone] Emmy Alicea Unavailable Unavailable Americo Mcneil MD Unavailable [phone] Korey Warren [facility] Unavailable Unavail able Encounter Details Date [...] declined 03/23/2023 How often do you attend protestant or buddhist serv ices? Patient declined 03/23/2023 Do you belong to any clubs o r organizations such as protestant groups, unions, fraternal or athletic groups, or [...] place to sleep or slept in a half-way (including now)? Patient refused 03/23/2023 Personal Safety Answer Date Recorded Have you ever been in or are you currently in a harmful physical or emotional relationship or is someone making you feel afraid or unsafe? 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 Gender Identity Not on file Sexual Orientation [...] documented as of this encounter Care Teams Sweeper Cleaner Industrial Relationship Specialty Start Date End Date Tika Araujo MD PCP - General Nurse Practitioner 03/27/20 Americo Mcneil MD [address] [facility] [id number] [place] [address] PCP - Home Infusion Attending Infectious Diseases 10/15/24 Suresh Verma MD Community Service Representative Transplant 09/16/18 Pao Allen, RN VAD Coordinator Transplant 03/20/19 Emmy Alicea Primary Osteologist Transplant 08/14/24 Korey Warren [facility] Pharmacist Pharmacy 10/23/24 documented as of this encounter
--- OUTSIDE RECORDS SUMMARY | 2024-12-09 02:07 | XMS_ITS | Encounter Summary ---
Author Organization [facility] Address [address] [place] [address] Phone Care Team Providers Care Adjunct Latin Professor Name Role Phone Suresh Verma MD Unavailable [phone] Pao Allen RN Unavailable [phone] Tika Araujo MD Primary Care Provider [phone] Emmy Alicea Unavailable Unavailable Americo Mcneil MD Unavailable [phone] Korey Warren [facility] Unavailable Unavail able Encounter Details [...] declined 03/23/2023 How often do you attend religion or protestant serv ices? Patient declined 03/23/2023 Do you [...] place to sleep or slept in a senior living (including now)? Patient refused 03/23/2023 Personal Safety Answer Date Recorded Have you ever been in or are you currently in a harmful physical or emotional relationship or is someone making you feel afraid or unsafe? 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 Gender Identity Not on file Sexual Orientation [...] documented as of this encounter Care Teams Adjunct Latin Professor Relationship Specialty Start Date End Date Tika Araujo MD PCP - General Nurse Practitioner 03/27/20 Americo Mcneil MD [address] [id number] [place] [address] PCP - Home Infusion Attending Infectious Diseases 10/15/24 Suresh Verma MD Hand Gluer And Slicer Transplant 09/16/18 Pao Allen, RN VAD Coordinator Transplant 03/20/19 Emmy Alicea Primary Oracle Fusion Developer Transplant 08/14/24 Korey Warren [facility] Pharmacist Pharmacy 10/23/24 documented as of this encounter
--- OUTSIDE RECORDS SUMMARY | 2024-12-09 02:07 | XMS_ITS | Encounter Summary ---
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 [phone] [place] [address] PCP - Home Infusion Attending Infectious Diseases 10/15/24 Suresh Verma MD Gas Main Fitter Helper Transplant 09/16/18 Pao Allen, RN VAD Coordinator Transplant 03/20/19 Emmy [place]a Primary Engineering Design Supervisor Transplant 3/18/25 Korey Warren, [facility] Pharmacist Pharmacy 10/23/24 documented as of this encounter
--- OUTSIDE RECORDS SUMMARY | 2024-12-09 02:07 | XMS_ITS | Encounter Summary ---
Author Organization [facility] Address [address] [place] [address] Phone Care Team Providers Care Legal Support Analyst Name Role Phone Suresh Verma MD Unavailable [phone] Pao Allen RN Unavailable [phone] Tika Araujo MD Primary Care Provider [phone] Emmy Alicea Unavailable Unavailable Americo Mcneil MD Unavailable [phone] Korey Warren [facility] Unavailable Unavail able Encounter Details Date Type Department Care Team (Late st Contact Info) Description 11/19/2024 Results Follow-Up [facility] [address] [place] [address] [address] [place] [address] Kevin Dodd MD [address] [address] Surgical pathology Social History Tobacco Use Types Packs/Day Years Used Date Smoking Tobacco: Never Passive Smoke Exposure: Never Smokeless Tobacco: Never Alcohol Use Standard Drinks/Week Comments No 0 (1 standard drink = 0.6 oz pur e alcohol) [facility] Utilities Answer Date Recorded In the [...] often do you attend chur ch or anabaptist services? More than 4 times per year 08/25/2024 Do you belong to any clubs o r organizations such as amish groups, unions, fraternal or athletic groups, or [...] or rent on time? Patient refused 03/23/20 In the last 12 months, how many places have you lived? 0 03/23/2023 In the last 12 months, was t here a time when you did not have a steady place to sleep or slept in a long term (including now)? Patient refused 03/23/2023 Housing Stability [...] any time in the past 12 m [facility], were you homeless or living in a long term (including now)? No 08/25/2024 Personal Safety Answer Date Recorded Have you ever been in or are you currently in a harmful physical or emotional relationship or is someone making you feel afraid or unsafe? 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 PLease call and schedule mohs with me. Thanks! 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
--- OUTSIDE RECORDS SUMMARY | 2024-12-09 02:07 | XMS_ITS | Referral Summary ---
Author Organization [facility] Virtual Care Address [address] [place] [address] Phone Care Team Providers Care Coupler Name Role Phone Suresh Verma MD Unavailable [phone] Pao Allen RN Unavailable [phone] Tika Araujo MD Primary Care Provider [phone] Emmy Alicea Unavailable Unavailable Americo Mcneil MD Unavailable [phone] Korey Warren [facility] Unavailable Unavail able Encounters Date Type Department Care Team Description 12/08/2024 Telephone [facility] Transplant Heart [address] Mailop [phone] [place] [address] Courtney Bonilla, SANKET 12/06/2024 Anticoagulation Telephone Call [facility] Transplant Heart [address] Mailstop [phone] [place] [address] Pao Allen, SANKET 12/06/2024 10:45 AM CDT Lab [facility] [address] [place] [address] LVAD (left ventricular assist device) present ([facility]) 12/06/2024 10:30 AM CDT Lab [facility] [address] [place] [address] Screen for sexually transmitted diseases; Eosinophilia, unspecified type; 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 12/06/2024 Documentation [facility] Infectious Diseases [address] [place] [phone] Shanelle Sanches RN 12/06/2024 Orders Only [facility] Infectious Diseases [address] [place] [phone] Shanelle Sanches RN 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) 12/06/2024 10:00 AM CDT Office Visit [facility] Infectious Diseases [facility] Office Building [address] [place] [phone] Americo Mcneil MD 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); Encounter for long-term (current) use of antibiotics; Eosinophilia, unspecified type; Screen for sexually transmitted diseases; Disorder 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); LVAD (left ventricular assist device) present ([facility]) 12/04/2024 Telephone [facility] Infectious Diseases [address] [place] [address] Office [address] [place] [phone] Americo Mcneil MD 12/04/2024 Telephone [facility] Infectious Diseases [address] [place] [address] [place] [phone] Alia Espinoza 12/04/2024 11:00 AM CDT Procedure visit [facility] Dermatology [address] [facility] Outpatient Health [address] [place] [phone] Kevin Dodd MD Squamous cell carcinoma of forehead (Primary Dx); AK (actinic keratosis) 12/03/2024 Telephone [facility] Imaging [address] [place] [address] Katrin Veloz RN 12/03/2024 Documentation [facility] Infectious Diseases [address] [place] [address] [address] [place] [address] Shanelle Sanches, SANKET 12/03/2024 Orders Only [facility] Infectious Diseases [address] [facility] 100 [place] [phone] Shanelle Sanches, SANKET 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) 11/27/2024 Anticoagulation Telephone Call [facility] Transplant Heart [address] [place] [address] [address] Mailstop [phone] [place] [address] Pao Allen RN 11/26/2024 Telephone [facility] Infectious Diseases [address] [place] [phone] Alia Espinoza 11/23/2024 Home Infusion [facility] [address] [place] [address] James Espinoza, [facility] 11/22/2024 Telephone [facility] Cardiology [address] [place] [address] Advanced Medicine 8th [place] [address] [place] [address] Suresh Verma MD 11/21/2024 Telephone [facility] Infectious Diseases [address] [place] [phone] Americo Mcneil MD 11/21/2024 Anticoagulation Telephone Call [facility] Transplant Heart [address] [place] [address] [address] Mailstop -[phone] [place] [address] Courtney Bonilla RN 11/20/2024 Telephone [facility] Cardiology Replaced by [facility] Advanced Medicine 8th [place] [address] [place] [address] Suresh Wyman MD PhD 11/20/2024 Telephone [facility] Transplant Heart [address] [place] [address] 34[address] Mailstop -[phone] [place] [address] Isaiah Miranda 11/20/2024 Home Infusion [facility] [address] [place] [address] Lorraine Bloom 11/19/2024 Telephone [facility] Infectious Diseases [address] [facility] [address] [place] [address] Alia Espinoza 11/19/2024 Telephone [facility] Infectious Diseases [address] [facility] [address] [place] [address] Alia Espinoza 11/19/2024 Results Follow-Up [facility] Dermatology [address] [facility] [address] [place] [phone] Kevin Dodd MD Surgical pathology 11/13/2024 Anticoagulation Telephone Call [facility] Transplant Heart [address] [place] [address] 34[address] Mailstop [phone] [place] [address] Pao Allen RN 11/13/2024 Orders Only [facility] [address] [place] [address] Kevin Dodd MD Neoplasm of unspecified behavior of bone, soft tissue, and skin 11/12/2024 Telephone [facility] Cardiology [address] [facility] Medicine 8th [place] [address] [place] [phone] Suresh Verma MD 11/12/2024 10:30 AM CDT Office Visit [facility] Dermatology [address] [facility] Outpatient Health [address] [place] [phone] Kevin Dodd MD Neoplasm of unspecified behavior of bone, soft tissue, and skin (Primary Dx); Postop check 11/11/2024 Telephone [facility] Transplant Heart [address] [place] [address] [address] Mailstop [phone] [place] [address] Pao Allen, RN LVAD Equipment Replacement (EBB) 11/10/2024 Telephone [facility] Transplant Heart [address] [place] [address] 34[address] Mailstop [phone] [place] [address] Pao Allen RN 11/06/2024 Anticoagulation Telephone Call [facility] Transplant Heart [address] [place] [address] 34[address] Mailstop [phone] [place] [address] Pao Allen, RN 11/02/2024 Anticoagulation Telephone Call [facility] Transplant Heart [address] [place] [address] [address] Mailstop [phone] [place] [address] Pao Allen, RN 10/25/2024 Documentation [facility] Infectious Diseases [address] [facility] [address] [place] [phone] Shanelle Sanches RN 10/25/2024 Orders Only [facility] Transplant Heart [address] [place] [address] 34[address] Mailop [phone] [place] [address] Pao Allen, SANKET 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) 10/25/2024 10:00 AM CDT Office Visit [facility] Cardiology [address] [place] [address] Office [address] [place] [phone] Ischemic cardiomyopathy (Primary Dx); Chronic systolic heart failure (HCC); Transaminitis; LVAD (left ventricular assist device) present ICM, end-stage systolic CHF s/p HM3 (2015) 10/25/2024 9:20 AM CDT Office Visit [facility] Infectious Diseases [address] [place] [address] Office Building [address] [place] [phone] Americo Mcneil MD 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); Eosinophilia, unspecified type 10/23/2024 Anticoagulation Telephone Call [facility] and [facility] Transplant Heart [address] [place] [address] [address] Mailop [phone] [place] [address] Pao Allen, RN 10/23/2024 Home Infusion [facility] [address] [place] [address] Edwina Robb [facility] Infection and inflammatory reaction due to cardiac device, implant, and graft, sequela (Primary Dx); Bacterial intestinal infection; Presence of heart assist device (HCC) 10/18/2024 Orders Only [facility] Home Care Services [address] [place] [address] Drive [address] [place] [address] Korey Warren [facility] 10/18/2024 Telephone [facility] Transplant Heart [address] [facility] [address] Mailstop -[phone] [place] [address] Steffany Reyes 10/15/2024 Orders Only [facility] Home Care Services [address] [facility] [address] [place] [phone] Korey Warren, [facility] 10/15/2024 11:00 AM CDT Procedure visit [facility] Dermatology 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; Basal cell carcinoma (BCC) of left side of neck 10/12/2024 Telephone [facility] Infectious Diseases [address] [facility] [address] [place] [phone] Shanelle Sanches, SANKET 10/11/2024 Anticoagulation Telephone Call [facility] Transplant Heart [address] [place] [address] 34[address] Mailstop -[phone] [place] [address] Pao Allen, RN 10/11/2024 Documentation [facility] Infectious Diseases [address] [facility] [address] [place] [address] Shanelle Sanches, SANKET 10/04/2024 Telephone [facility] Transplant Heart [address] [facility] [address] Mailstop -[phone] [place] [address] Faby Macdonald 10/02/2024 Anticoagulation Telephone Call [facility] Transplant Heart [address] [facility] [address] Mailstop [phone] [place] [address] Pao Allen, RN 10/02/2024 Telephone [facility] Transplant Heart [address] [facility] [address] Mailstop -[phone] [place] [address] Karoline Álvarez 10/01/2024 Telephone [facility] Infectious Diseases [address] [facility] [address] [place] [address] Destinee Peraza JUS 10/01/2024 Telephone [facility] Dermatology [address] [facility] Outpatient Health [address] [place] [phone] Tin Pinedo PA 09/28/2024 Telephone [facility] Home Care Services [address] [facility] [address] [place] [phone] Korey Warren [facility] 09/28/2024 Results Follow-Up [facility] Dermatology [address] [facility] [address] [place] [phone] Tin Pinedo PA Surgical pathology 09/27/2024 Documentation [facility] Infectious Diseases [address] [facility] [address] [place] [phone] Thelma Desai Lab Results 09/26/2024 Orders Only [facility] [address] [place] [address] Tin Pinedo PA Neoplasm of skin 09/25/2024 Telephone [facility] Infectious Diseases [address] [facility] Medical Office Building 3 [address] [place] [phone] Americo Mcneil MD 09/25/2024 2:45 PM CDT Office Visit [facility] Dermatology [address] [facility] Outpatient Health [address] [place] [phone] Tin Pinedo PA Actinic keratosis (Primary Dx); Neoplasm of skin; Inflamed seborrheic keratosis; Multiple benign nevi; Seborrheic keratosis; Seborrheic dermatitis; History of nonmelanoma skin cancer 09/24/2024 Anticoagulation Telephone Call [facility] Transplant Heart [address] [place] [address] [address] 5 [place] [address] Estrella Arvizu RN 09/24/2024 Telephone [facility] Transplant Heart [address] Mailstop 62-74-267 [place] [address] LoradarleneKaroline 09/21/2024 Telephone [facility] Transplant Heart [address] [facility] [address] Mailstop [phone] [place] [address] LoradarleneKaroline 09/21/2024 Telephone [facility] Infectious Diseases [address] [facility] [address] [place] [phone] Destinee Peraza RMA 09/20/2024 Documentation [facility] Infectious Diseases [address] [facility] [address] [place] [phone] Thelma Desai Progress/Monitoring 09/20/2024 1:52 PM CDT - 09/20/2024 11:59 PM CDT Hospital Encounter [facility] Radiology [address] [facility] [address] [place] [phone] Left knee pain, unspecified chronicity Discharge Disposition: Discharge to home or self care 09/20/2024 2:30 PM CDT Office Visit [facility] Orthopaedic Surgery [address] [facility] Medical Office Building [address] [place] [phone] Tammy Zavala PA Primary osteoarthritis of left knee (Primary Dx); Knee effusion, left 09/18/2024 Anticoagulation Telephone Call [facility] Transplant Heart [address] [facility] [address] Mailstop [phone] [place] [address] Pao Allen RN 09/17/2024 Telephone [facility] Infectious Diseases [address] [facility] [address] [place] [phone] Indiana Guerrero CMA 09/14/2024 Orders Only [facility] Home Care Services [address] [facility] [address] [place] [address] Ashlie Jorge [facility] 09/11/2024 Documentation [facility] Infectious Diseases [address] [facility] [address] [place] [phone] Thelma Desai Progress/Monitoring 09/11/2024 Anticoagulation Telephone Call [facility] Transplant Heart [address] [facility] [address] Mailstop [phone] [place] [address] Pao Allen RN 09/10/2024 Telephone [facility] Transplant Heart [address] Mailstop [phone] [place] [address] Isaiah Miranda from Last 3 Months Allergies Active Allergy [...] 5/16 needle USE DAILY WITH NOVOLOG [address] (PROTONIX) 40 mg EC tablet Take 1 tablet (40 mg total) by mouth daily 015 Active BASAGLAR KWIKPEN U-100 INSULIN 100 unit/mL (3 mL) insulin pen INJECT 30 UNITS SUBCUTANEOUSLY AT BEDTIME 0 018 Active acetaminophen (TYLENOL) 325 mg tablet Take 2 tablets (650 mg total) by mouth every 6 (six) hours as needed 015 Active allopurinol (ZYLOPRIM) 100 mg tablet Take 1 tablet (100 mg total) by mouth daily 1 019 Active multivitamin tablet,chewable Take 1 tablet by mouth daily Active pancrelipase (CREON) 24,000 units of lipase capsule Take 2 capsules by mouth 3 (three) times a day with meals Active blood glucose diagnostic (glucose blood) strip TESTS 3 TIMES A DAY 021 Active ferrous sulfate 325 mg (65 mg of elemental iron) tablet Take 1 tablet (325 mg total) by mouth daily with breakfast - Take with Vit C to help with absorption 020 Active NovoLOG 100 unit/mL (3 mL) pen for injection INJECT 6-20 UNITS INTO THE SKIN NEEDED. PER SLIDING SCALE 022 Active heparin sodium,porcine (HEPARIN LOCK FLUSH IV) [...] mg total) by mouth daily 023 Active traZODone (DESYREL) 50 mg tablet Take 1 tablet (50 mg total) by mouth nightly 90 tablet 3 024 2024 Active atorvastatin (LIPITOR) 40 mg tablet Take 1 tablet (40 mg total) by mouth daily 30 tablet 1 025 Active isosorbide mononitrate ER (IMDUR) 60 mg 24 hr tablet Take 1 tablet (60 mg total) by mouth daily 30 tablet 1 025 Active carvediloL (COREG) 12.5 mg tablet Take 1 tablet (12.5 mg total) by mouth 2 (two) times a day with meals 180 tablet 3 025 2025 Active torsemide (DEMADEX) 20 mg tablet Take 1 tablet (20 mg total) by mouth daily as needed (weight gain, swelling) 30 tablet 11 025 2025 Active ADMELOG 100 unit/mL pen for injection as needed 025 Active dalbavancin (DALVANCE) 500 mg solution Infuse 75 mL (1,500 mg total) into a venous catheter every 2 (two) weeks 025 Active sacubitriL-vals rich (ENTRESTO) 97-103 mg tabletIndicatio ns:chronic heart failure Take 1 tablet by mouth 2 (two) times a day 60 tablet 11 Active spironolactone (ALDACTONE) 25 mg tablet Take 1 tablet (25 mg total) by mouth daily 30 tablet 11 2025 Active fidaxomicin (DIFICID) tabletIndicatio ns:Clostridioid es [...] day as needed (rash face) 30 g Active ketoconazole (NIZORAL) 2 % shampoo Apply [...] WITH DEXTROSE FLUSH ONLY 225 mL 8 12/08/19 25 4:58 PM CDT 2025 Active sodium chloride 0.9% flush syringeIndicati ons:Bacterial intestinal infection,Infec tion and inflammatory reaction due to cardiac device, implant, and graft, sequela,Presenc e of heart assist device (HCC) Infuse 10 mL IV as needed for line care 82899 mL 025 2025 Active heparin 100 unit/mL syringeIndicati ons:Bacterial intestinal infection,Infec tion and inflammatory reaction due to cardiac device, implant, and graft, sequela,Presenc e of heart assist device (HCC) Infuse 5 mL (500 Units total) IV as needed (line care) 25259 mL 025 2025 Active dextrose 5 % in water (dextrose 5% water) 5% flushIndication s:Bacterial intestinal infection,Infec tion and inflammatory reaction due to cardiac device, implant, and graft, sequela,Presenc e of heart assist device (HCC) Infuse 10 mL IV as needed (before and after Dalbavancin infusion) NOTE: Dalbavancin is not compatible with normal saline. 20 mL 12/08/19 25 4:58 PM CDT 025 2025 Active dextrose 5% solutionIndicat ions:Bacterial [...] WITHIN 4 HOURS OF MIXING 1500 mL 12/08/19 25 4:58 PM CDT 2025 Active warfarin (COUMADIN) 3 mg tabletIndicatio ns:Left Ventricular Assist Device 4 mg tues/thurs; 2 mg Active warfarin (COUMADIN) 4 mg tabletIndicatio ns:Left Ventricular Assist Device 4 mg tues/thurs; 2 mg Active levoFLOXacin (LEVAQUIN) 750 mg tabletIndicatio ns:Other (complete free text reason below),chronic drive line infection, on suppressive therapy Take 1 tablet (750 mg total) by mouth daily 30 tablet 2025 Active ustekinumab (STELARA) injection Inject 0.5 mL (45 mg total) under the skin every 3 (three) months 2021 Discontinued levoFLOXacin (LEVAQUIN) 750 mg tabletIndicatio ns:Other (complete free text reason below),chronic drive line infection, on suppressive therapy Take 1 tablet (750 mg total) by mouth every other day 90 tablet 024 2024 Discontinued(R eorder) warfarin (COUMADIN) 3 mg tabletIndicatio ns:Left Ventricular Assist Device 4 mg daily; 2 mg 025 2024 Discontinued warfarin (COUMADIN) 4 mg tabletIndicatio ns:Left Ventricular Assist Device 4 mg daily, 2 mg tue/tue 025 2024 Discontinued warfarin (COUMADIN) 2 mg tablet TAKE 2 TABLETS (4 MG TOTAL) BY MOUTH DAILY 5 MG DAILY EXCEPT 4 MG TUE//Tue 025 2024 Discontinued Active Problems Patient Care [...] bid Assessment & Plan (05/27/2024 2:51 AM DIRECTOR OF GRADUATE ADMISSIONS): -Home regimen: Entresto, coreg and imdur. -hold these iso orthostasis; re-introduce as tolerated Orthostasis 05/27/2024 Assessment & Plan (05/27/2024 5:39 AM DIRECTOR OF GRADUATE ADMISSIONS): Presented with orthostatic symptoms while at home [...] 05/27/2024 Assessment & Plan (06/05/2024 11:44 AM DIRECTOR OF GRADUATE ADMISSIONS): Admitted with BRBPR and near syncope, Hgb [...] sigmoidoscopy. Assessment & Plan (06/04/2024 11:42 AM DIRECTOR OF GRADUATE ADMISSIONS): Admitted with BRBPR and near syncope, Hgb [...] sigmoidoscopy. Assessment & Plan (06/03/2024 8:04 AM DIRECTOR OF GRADUATE ADMISSIONS): Admitted with BRBPR and near syncope, Hgb [...] sigmoidoscopy. Assessment & Plan (06/01/2024 11:39 AM DIRECTOR OF GRADUATE ADMISSIONS): Admitted with BRBPR and near syncope, Hgb [...] sigmoidoscopy. Assessment & Plan (05/31/2024 9:25 AM DIRECTOR OF GRADUATE ADMISSIONS): Admitted with BRBPR and near syncope, Hgb [...] CBCs Assessment & Plan (05/27/2024 12:05 PM DIRECTOR OF GRADUATE ADMISSIONS): C/O BRBPR admitted with near syncope, admit Hgb 11.6, INR 2.4 -serial CBC -BID PPI -guaiac stools -hold ASA and warfarin pending Hgb trend -consider GI consult when INR down Assessment & Plan (05/27/2024 5:33 AM DIRECTOR OF GRADUATE ADMISSIONS): After admission; overnight patient had episode of [...] inpatient Assessment & Plan (06/05/2024 11:44 AM DIRECTOR OF GRADUATE ADMISSIONS): Home regimen: Lantus 30units nightly and Lispro SSI -HgbA1c 6.8 -BG currently controlled -Continue dose reduced Lantus 26 units nightly, Lispro 6 units TID with meals + SSI -Carb consistent diet -Accuchecks Assessment & Plan (06/04/2024 11:41 AM DIRECTOR OF GRADUATE ADMISSIONS): Home regimen: Lantus 30units nightly and Lispro SSI -HgbA1c 6.8 -BG currently controlled -Continue dose reduced Lantus 26 units nightly, Lispro 6 units TID with meals + SSI -Carb consistent diet -Accuchecks Assessment & Plan (06/03/2024 8:03 AM DIRECTOR OF GRADUATE ADMISSIONS): Home regimen: Lantus 30units nightly and Lispro SSI -HgbA1c 6.8 -BG currently controlled -Continue dose reduced Lantus 26 units nightly, Lispro 6 units TID with meals + SSI -Carb consistent diet -Accuchecks Assessment & Plan (06/01/2024 11:40 AM DIRECTOR OF GRADUATE ADMISSIONS): Home regimen: Lantus 30units nightly and Lispro SSI -HgbA1c 6.8 -BG currently controlled -Continue dose reduced Lantus 26 units nightly, Lispro 6 units TID with meals + SSI -Carb consistent diet -Accuchecks Assessment & Plan (05/31/2024 9:30 AM DIRECTOR OF GRADUATE ADMISSIONS): Home regimen: Lantus 30units nightly and Lispro SSI -HgbA1c 6.8 -BG currently controlled -Continue dose reduced Lantus 26 units nightly, Lispro 6 units TID with meals + SSI -Carb consistent diet -Accuchecks Assessment & Plan (05/27/2024 9:58 AM DIRECTOR OF GRADUATE ADMISSIONS): Home regimen includes lantus 30 IU nightly and lispro SSI HgbA1c 6.8 -dose reduce lantus, add meal time lispro insulin Hypomagnesemia 05/27/2024 Assessment & Plan (06/03/2024 8:04 AM DIRECTOR OF GRADUATE ADMISSIONS): S/p IV repletion this admission, continue to check and treat as needed Assessment & Plan (05/27/2024 12:04 PM DIRECTOR OF GRADUATE ADMISSIONS): Mg 1.3 -replete with PO and IV -recheck tomorrow History of left ventricular assist device (LVAD) 05/26/2024 Assessment & Plan (06/05/2024 11:44 AM DIRECTOR OF GRADUATE ADMISSIONS): ICM with HFrEF s/p [employer] K[employer] MANAGER-D 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) admitted with near [...] weights Assessment & Plan (06/04/2024 11:42 AM DIRECTOR OF GRADUATE ADMISSIONS): ICM with HFrEF s/p [employer] K[employer]EN MANAGER-D 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) admitted with near [...] weights Assessment & Plan (06/03/2024 8:04 AM DIRECTOR OF GRADUATE ADMISSIONS): ICM with HFrEF s/p [employer] K[employer]EN MANAGER-D 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) admitted with near [...] weights Assessment & Plan (06/01/2024 11:30 AM DIRECTOR OF GRADUATE ADMISSIONS): ICM with HFrEF s/p [employer] KITCHEN MANAGER-D 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) admitted with near [...] weights Assessment & Plan (05/31/2024 9:45 AM DIRECTOR OF GRADUATE ADMISSIONS): ICM with HFrEF s/p RESTA[employer] KITCHEN MANAGER-D 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) admitted with near [...] weights Assessment & Plan (05/27/2024 12:13 PM DIRECTOR OF GRADUATE ADMISSIONS): ICM with HFrEF S/P REST[employer] KITCHEN MANAGER-D and DT-HM3 (03/2015) admitted with near syncope [...] weights Assessment & Plan (05/27/2024 5:34 AM DIRECTOR OF GRADUATE ADMISSIONS): CM with HFrEF S/P RESTA[employer] KITCHEN MANAGER-D and DT-HM3 (03/2015) Hx of recurrent drive [...] 04/18/2024 Assessment & Plan (04/19/2024 12:49 PM DIRECTOR OF GRADUATE ADMISSIONS): RUQ/ Right flank pain associated with nausea [...] control. Assessment & Plan (04/18/2024 1:51 PM DIRECTOR OF GRADUATE ADMISSIONS): RUQ/ Right flank pain associated with nausea [...] control. Assessment & Plan (04/18/2024 1:38 AM DIRECTOR OF GRADUATE ADMISSIONS): RUQ/ Right flank pain associated with nausea [...] 04/17/2024 Assessment & Plan (04/19/2024 12:38 PM DIRECTOR OF GRADUATE ADMISSIONS): - have been progressively increasing lately - [...] desensitization. Assessment & Plan (04/18/2024 1:40 PM DIRECTOR OF GRADUATE ADMISSIONS): - have been progressively increasing lately - [...] recs. 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 Assessment & Plan (04/01/2023 12:48 PM CDT): [...] 08/28/2021 Assessment & Plan (05/27/2024 2:46 AM DIRECTOR OF GRADUATE ADMISSIONS): Improving from prior admission when minocycline switched [...] CPAP Assessment & Plan (06/05/2024 11:46 AM DIRECTOR OF GRADUATE ADMISSIONS): -Nightly CPAP with home unit Assessment & Plan (06/04/2024 11:43 AM DIRECTOR OF GRADUATE ADMISSIONS): -Nightly CPAP with home unit Assessment & Plan (06/03/2024 8:05 AM DIRECTOR OF GRADUATE ADMISSIONS): Nightly CPAP with home unit Assessment & Plan (06/01/2024 11:40 AM DIRECTOR OF GRADUATE ADMISSIONS): Nightly CPAP with home unit Assessment & Plan (05/29/2024 11:33 AM DIRECTOR OF GRADUATE ADMISSIONS): Nightly CPAP with home unit Assessment & Plan (05/27/2024 9:50 AM DIRECTOR OF GRADUATE ADMISSIONS): Nightly CPAP with home unit Assessment & Plan (05/27/2024 1:34 AM DIRECTOR OF GRADUATE ADMISSIONS): - continue CPAP Assessment & Plan (04/19/2024 12:49 PM DIRECTOR OF GRADUATE ADMISSIONS): Continue with CPAP Assessment & Plan (04/18/2024 1:45 PM DIRECTOR OF GRADUATE ADMISSIONS): Continue with CPAP Assessment & Plan (04/18/2024 2:03 AM DIRECTOR OF GRADUATE ADMISSIONS): CW CPAP Assessment & Plan (04/02/2023 8:42 [...] 10/22/2020 Assessment & Plan (06/05/2024 11:46 AM DIRECTOR OF GRADUATE ADMISSIONS): -BMI 34, encourage weight loss Assessment & Plan (06/03/2024 8:05 AM DIRECTOR OF GRADUATE ADMISSIONS): BMI 34, encouraged weight loss Assessment & Plan (05/27/2024 7:50 AM DIRECTOR OF GRADUATE ADMISSIONS): BMI 34, encouraged weight loss Assessment & [...] 06/14/2018 Assessment & Plan (06/05/2024 11:42 AM DIRECTOR OF GRADUATE ADMISSIONS): Pt c/o chest pain x 3 days relieved with SL nitro. -hx CABG and PCI in past -slightly elevated troponin, continue to trend -EKG unremarkable -increase imdur to 60mg daily -continue coreg, hold ASA 2/2 GIB, previously discontinued statin 2/2 elevated LFT -denies CP since admit Assessment & Plan (06/04/2024 11:36 AM DIRECTOR OF GRADUATE ADMISSIONS): Pt c/o chest pain x 3 days relieved with SL nitro. -hx CABG and PCI in past -slightly elevated troponin, continue to trend -EKG unremarkable -increase imdur to 60mg daily -continue coreg, hold ASA 2/2 GIB, previously discontinued statin 2/2 elevated LFT -denies CP since admit Assessment & Plan (06/03/2024 8:00 AM DIRECTOR OF GRADUATE ADMISSIONS): Pt c/o chest pain x 3 days relieved with SL nitro. -hx CABG and PCI in past -slightly elevated troponin, continue to trend -EKG unremarkable -increase imdur to 60mg daily -continue coreg, hold ASA 2/2 GIB, previously discontinued statin 2/2 elevated LFT -denies CP since admit Assessment & Plan (05/27/2024 12:21 PM DIRECTOR OF GRADUATE ADMISSIONS): Pt c/o chest pain x 3 days [...] diuretics Assessment & Plan (08/02/2019 9:43 AM DIRECTOR OF GRADUATE ADMISSIONS): -chronic systolic end stage heart failure -exam [...] -tele Assessment & Plan (08/01/2019 12:24 PM DIRECTOR OF GRADUATE ADMISSIONS): -chronic systolic end stage heart failure -exam appears euvolemic and LVAD appears to be functioning appropriately -suspect that presenting CP 2/2 poorly controlled BP -continue asa/losartan and coreg/nitrate doses increased -add home torsemide for improved BP control -2D echo pending -continue low sodium diet -tele Assessment & Plan (07/31/2019 4:15 PM DIRECTOR OF GRADUATE ADMISSIONS): Appears euvolemic on exam Admitted with elevated [...] therapy on April 12, 2015 for underlying [place] [employer] class IV heart failure Assessment & Plan (08/31/2024 8:44 AM CDT): 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 Hemodynamically stable, appears euvolemic and denies VAD alarms. INR 2.24 on admission. 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 Hemodynamically stable, appears euvolemic and denies VAD alarms. INR 2.24 on admission. 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 Hemodynamically [...] 2:53 AM CDT): 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 Hemodynamically stable, appears euvolemic and denies VAD alarms. INR 2.24 on admission. 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 -tele monitoring Assessment & Plan (04/19/2024 12:46 PM DIRECTOR OF GRADUATE ADMISSIONS): ICM with HFrEF S/P RESTAURANT KITCHEN MANAGER-D and DT-HM3 (03/2015) Hx of recurrent drive [...] diet Assessment & Plan (04/18/2024 1:45 PM DIRECTOR OF GRADUATE ADMISSIONS): ICM with HFrEF S/P RESTAURANT KITCHEN MANAGER-D and DT-HM3 (03/2015) Hx of recurrent drive [...] diet Assessment & Plan (04/18/2024 3:54 AM DIRECTOR OF GRADUATE ADMISSIONS): ICM with HFrEF S/P RESTAURANT KITCHEN MANAGER-D and DT-HM3 (03/2015) 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 On warfarin 5mg Tue, Tuesday and Tuesday, 4mg [...] BP not improved with IVF will need LEAD MECHANICAL ENGINEER -strict I/Os, daily standing weights -tele Assessment [...] Assessment & Plan (09/02/2021 12:01 PM CDT): [facility] March 2015 -LVAD functioning appropriately, no alarms -acute on chronic systolic HF with VENU and elevated LFTs -treated with IV lasix with improvement -transitioned back to home torsemide -INR 1.8, will increase warfarin to 6mg daily except Sun/Mon 5mg (home regimen) -continue home carvedilol, hydralazine, isordil, ASA, atorvastatin -I&Os, daily weights, telemetry Assessment & Plan (09/01/2021 9:21 AM CDT): [facility] March 2015 -LVAD functioning appropriately, no alarms -acute on chronic systolic HF with VENU and elevated LFTs -treated with IV lasix with improvement -transition back to home torsemide -INR down to 1.7; will give extra dose warfarin this morning -continue warfarin -continue home carvedilol, hydralazine, isordil, ASA, atorvastatin -I&Os, daily weights, telemetry Assessment & Plan (08/31/2021 3:38 PM CDT): [facility] March 2015 -LVAD functioning appropriately, no [...] Assessment & Plan (08/28/2021 1:53 PM CDT): [facility] March 2015 -LVAD functioning appropriately, no alarms -appears near euvolemic on exam -INR supratherapeutic, hold warfarin tonight -continue home carvedilol, hydralazine, isordil, ASA, atorvastatin -I&Os, daily weights, telemetry Assessment & Plan (08/27/2021 11:55 AM CDT): [facility] March 2015 LVAD functioning appropriately, no alarms -appears near euvolemic on exam -resume home torsemide 20mg daily -INR therapeutic at 2.8 (goal 2-3) -continue home warfarin regimen: 4mg SMWF, 5mg TTS -continue home carvedilol, hydralazine, isordil -continue home ASA 325mg daily, atorvastatin -I&Os, daily weights, telemetry -complication management as above Assessment & Plan (08/26/2021 11:32 AM CDT): III March 2015 LVAD functioning appropriately, no alarms -appears euvolemic on exam -hold home diuretics for now (torsemide 20mg daily) -INR therapeutic at 2.5 (goal 2-3) -continue home warfarin regimen: 4mg SMWF, 5mg TTS -continue home carvedilol, hydralazine, isordil -continue home ASA 325mg daily, atorvastatin -I&Os, daily weights, telemetry -complication management as above Assessment & Plan (08/25/2021 10:29 AM CDT): [facility] March 2015 LVAD functioning appropriately, no alarms -appears euvolemic on exam -hold home diuretics for now (torsemide 20mg daily) -INR therapeutic at 2.2 (goal 2-3) -continue home warfarin regimen: 4mg SMWF, 5mg TTS -continue home carvedilol, hydralazine, isordil -continue home ASA 325mg daily, atorvastatin -I&Os, daily weights, telemetry -complication management as above Assessment & Plan (08/24/2021 2:27 PM CDT): [facility] March 2015 LVAD functioning appropriately, no [...] 2-3) Increase Warfarin to 7mg Monitor on creasing machine operator I/Os, daily weights Assessment & Plan (10/23/2020 [...] 325 Assessment & Plan (07/31/2019 4:13 PM DIRECTOR OF GRADUATE ADMISSIONS): Patient was implanted in March 2015 as [...] INR checks. Cardiac resynchronization th erapy defibrillator (RESTAURANT KITCHEN MANAGER-D) in place 12/30/2017 Overview (12/21/2021): Reached EoL in 2017 - elected NOT to generator change VT (ventricular tachycardia) ([facility]) 8 Overview (12/21/2021): Occurring before LVAD implantation - none since RESTAURANT KITCHEN MANAGER-D device (Metronic-- implanted prior to lvad. Pt is not PPM dependent and decision made to not proceed with generator change in December 2017) Assessment & Plan (09/11/2021 10:26 AM CDT): -NSVT on telemetry -Monitor and replete electrolytes -telemetry Assessment & Plan (09/10/2021 9:31 AM CDT): nsvt noted on creasing machine operator for increase in arrythmia Keep potassium above 4 and magnesium around 2 CTM Assessment & Plan (08/02/2019 9:55 AM DIRECTOR OF GRADUATE ADMISSIONS): -RESTAURANT KITCHEN MANAGER-D device (Metronic-- implanted prior to lvad. Pt is not PPM dependent and decision made to not proceed with generator change in December 2017) -continue tele Assessment & Plan (08/01/2019 12:21 PM DIRECTOR OF GRADUATE ADMISSIONS): -RESTAURANT KITCHEN MANAGER-D device (Metronic-- implanted prior to lvad. Pt is not PPM dependent and decision made to not proceed with generator change in December 2017) -continue tele Assessment & Plan (07/31/2019 4:21 PM DIRECTOR OF GRADUATE ADMISSIONS): patient had RESTAURANT KITCHEN MANAGER-D device metronic implanted prior to lvad Is not pacemaker depenent Saw Dr. ortega from -EP clinic 12/2017 and discussion was not to proceed with generator change and patient currently has lvad And chances of arresting from life threating arrhythmia with lvad was low halfway current use of anticoagulant therapy 0 06/04/2015 [...] miralax Assessment & Plan (06/05/2024 11:43 AM DIRECTOR OF GRADUATE ADMISSIONS): -CT scan has increase stool burden with stool ball in sigmoid colon -S/p enema for preparation for flex sigmoidoscopy performed on 05/29 -Continue aggressive bowel regimen -Continue Miralax BID, senna-docusate BID, and dulcolax suppository daily -Refuses lactulose due to cramping abd pain -KUB (1/4): A short segment of colon is mildly dilated with gas measuring up to 9.0 cm in the left hemiabdomen. No distal colonic air is definitively noted. Findings likely represent focal ileus. There is stool noted within the right hemicolon. Central bowel gas is nonobstructive. No pneumoperitoneum. -Passing gas and having liquid bowel movements, bloating slowly improving -Enema / with passing of small amount of stool -Repeat KUB today Assessment & Plan (06/04/2024 11:40 AM DIRECTOR OF GRADUATE ADMISSIONS): -CT scan has increase stool burden with [...] today Assessment & Plan (06/03/2024 9:55 AM DIRECTOR OF GRADUATE ADMISSIONS): -CT scan has increase stool burden with [...] movements. Assessment & Plan (06/01/2024 11:39 AM DIRECTOR OF GRADUATE ADMISSIONS): -CT scan has increase stool burden with stool ball in sigmoid colon -S/p enema for preparation for flex sigmoidoscopy performed on 05/29 -Patient has had several BMs since but none yet today -Continue Miralax BID, senna-docusate BID and dulcolax suppository PRN -Add lactulose today Assessment & Plan (05/31/2024 9:45 AM DIRECTOR OF GRADUATE ADMISSIONS): -CT scan has increase stool burden with stool ball in sigmoid colon -S/p enema for preparation for flex sigmoidoscopy performed on 05/29 -Patient has had several BMs including this morning -Continue Miralax, senna-docusate and dulcolax suppository PRN Assessment & Plan (05/27/2024 2:45 AM DIRECTOR OF GRADUATE ADMISSIONS): - had large BM in ED - [...] baseline Assessment & Plan (06/05/2024 11:46 AM DIRECTOR OF GRADUATE ADMISSIONS): -Creatinine at baseline -Avoid nephrotoxins, renally dose meds as appropriate -Avoid hypotension -BMP daily Assessment & Plan (06/04/2024 11:44 AM DIRECTOR OF GRADUATE ADMISSIONS): -Creatinine at baseline -Avoid nephrotoxins, renally dose meds as appropriate -Avoid hypotension -BMP daily Assessment & Plan (06/03/2024 8:05 AM DIRECTOR OF GRADUATE ADMISSIONS): Creatinine at baseline Assessment & Plan (06/01/2024 11:40 AM DIRECTOR OF GRADUATE ADMISSIONS): Creatinine at baseline Assessment & Plan (05/29/2024 11:32 AM DIRECTOR OF GRADUATE ADMISSIONS): Creatinine at baseline Assessment & Plan (05/27/2024 7:49 AM DIRECTOR OF GRADUATE ADMISSIONS): Creatinine at baseline Assessment & Plan (04/19/2024 12:49 PM DIRECTOR OF GRADUATE ADMISSIONS): Cr at baseline CTM. Assessment & Plan (04/18/2024 1:23 PM DIRECTOR OF GRADUATE ADMISSIONS): Cr at baseline CTM. Assessment & Plan (04/18/2024 1:46 AM DIRECTOR OF GRADUATE ADMISSIONS): Cr at baseline CTM. Assessment & Plan [...] & Plan (03/19/2022 11:45 AM CDT): Recent EVNU with elevated vanco trough, now improved on [...] follow Assessment & Plan (08/02/2019 9:51 AM DIRECTOR OF GRADUATE ADMISSIONS): Stage 3 CKD -Cr remains stable and in baseline range Assessment & Plan (08/01/2019 12:25 PM DIRECTOR OF GRADUATE ADMISSIONS): Stage 3 CKD -Cr remains stable and in baseline range Assessment & Plan (07/31/2019 4:15 PM DIRECTOR OF GRADUATE ADMISSIONS): History ckd stage 3 . Baseline creatine [...] PPI Assessment & Plan (05/27/2024 5:42 AM DIRECTOR OF GRADUATE ADMISSIONS): - IV ppi Assessment & Plan (04/19/2024 12:39 PM DIRECTOR OF GRADUATE ADMISSIONS): Continue with pantoprazole. Assessment & Plan (04/18/2024 1:41 PM DIRECTOR OF GRADUATE ADMISSIONS): Continue with pantoprazole. Assessment & Plan (04/18/2024 1:39 AM DIRECTOR OF GRADUATE ADMISSIONS): CW pantoprazole. Assessment & Plan (03/20/2022 1:03 [...] PPI Assessment & Plan (08/02/2019 9:45 AM DIRECTOR OF GRADUATE ADMISSIONS): -+ dyspepsia -continue PPI Assessment & Plan (08/01/2019 10:33 AM DIRECTOR OF GRADUATE ADMISSIONS): -+ dyspepsia -continue PPI Assessment & Plan (07/31/2019 4:00 PM DIRECTOR OF GRADUATE ADMISSIONS): Increase home dose PPI to bid to [...] 8:23 AM CDT): -H/H stable from prior [facility] reading and pt denies bleeding -Home iron supplementation held for now -continue to follow Assessment & Plan (07/31/2019 4:09 PM DIRECTOR OF GRADUATE ADMISSIONS): History of anemia - currently blood counts on admission look good Will continue to follow . Hyperlipidemia 01/07/2014 Assessment & Plan (04/19/2024 12:39 PM DIRECTOR OF GRADUATE ADMISSIONS): Holding statin for elevated liver enzymes. Assessment & Plan (04/18/2024 1:16 PM DIRECTOR OF GRADUATE ADMISSIONS): Holding statin for elevated liver enzymes. Assessment & Plan (04/18/2024 1:42 AM DIRECTOR OF GRADUATE ADMISSIONS): Holding statin for elevated liver enzymes. Assessment [...] 08/15/20 Assessment & Plan (07/31/2019 4:10 PM DIRECTOR OF GRADUATE ADMISSIONS): hi reports being on stelera injections Peripheral vascular disease 01/07/2014 Overview (09/03/2016): PVD Hypertension 01/07/2014 Assessment & Plan (04/19/2024 12:41 PM DIRECTOR OF GRADUATE ADMISSIONS): -Continue with Entresto, Hydralazine, coreg and imdur. -Monitor BP and adjust accordingly. -Orthostatic BP as patient mentioned having occasional lightheadedness while standing. -encourage adequate rehydration, safety precautions while changing positions, compression stockings. May consider med readjustment if symptoms persist Assessment & Plan (04/18/2024 1:42 PM DIRECTOR OF GRADUATE ADMISSIONS): -Continue with Entresto, Hydralazine, coreg and imdur. -Monitor BP and adjust accordingly. -Orthostatic BP as patient mentioned having occasional lightheadedness while standing. Assessment & Plan (04/18/2024 3:57 AM DIRECTOR OF GRADUATE ADMISSIONS): CW Entresto, Hydralazine, coreg and imdur. Monitor [...] needed Assessment & Plan (08/02/2019 9:41 AM DIRECTOR OF GRADUATE ADMISSIONS): -pt presented with poorly controlled hypertension -systolic BP remains elevated despite increased nitrates and coreg doses -consider addition of low dose norvasc to regimen -continue losartan and torsemide to regimen Assessment & Plan (08/01/2019 12:23 PM DIRECTOR OF GRADUATE ADMISSIONS): -pt presented with poorly controlled hypertension -nitrates and coreg increased--continue to follow and titrate as needed -continue losartan and add torsemide to regimen Assessment & Plan (07/31/2019 3:57 PM DIRECTOR OF GRADUATE ADMISSIONS): Elevated blood pressures at home and recorded [...] & Plan (03/30/2023 10:34 AM CDT): KUB 1025 c/f ileus -NG placed 03/24 for distention [...] 06/02/2024 Assessment & Plan (05/27/2024 2:07 AM DIRECTOR OF GRADUATE ADMISSIONS): - flomax; low threshold to hold if recurrent hypotension Assessment & Plan (04/19/2024 12:39 PM DIRECTOR OF GRADUATE ADMISSIONS): CW tamsulosin. Assessment & Plan (04/18/2024 1:13 PM DIRECTOR OF GRADUATE ADMISSIONS): CW tamsulosin. Assessment & Plan (04/18/2024 1:39 AM DIRECTOR OF GRADUATE ADMISSIONS): CW tamsulosin. Assessment & Plan (04/02/2023 8:42 [...] SSI Assessment & Plan (05/27/2024 2:51 AM DIRECTOR OF GRADUATE ADMISSIONS): Home regimen includes lantus 30 IU nightly and lispro SSI - continue with basal (dose reduced to 17 units during prior admission) and SSI only (he states he takes 1-6 of lispro with meals) - add bolus TID if needed Assessment & Plan (04/19/2024 12:50 PM DIRECTOR OF GRADUATE ADMISSIONS): Home regimen includes lantus 30 IU nightly and lispro (6-20 IU) (per patient he takes 18 international units with most of the meals) - continue with basal bolus (dose reduced to 17 units) and prandial (dose reduced to 6 units with meals) regimen in additional to SSI - Monitor blood sugar and adjust insuline as needed. Assessment & Plan (04/18/2024 1:55 PM DIRECTOR OF GRADUATE ADMISSIONS): Home regimen includes lantus 30 IU nightly and lispro (6-20 IU) (per patient he takes 18 international units with most of the meals) - continue with basal bolus (dose reduced to 17 units) and prandial (dose reduced to 6 units with meals) regimen in additional to SSI - Monitor blood sugar and adjust insuline as needed. Assessment & Plan (04/18/2024 1:42 AM DIRECTOR OF GRADUATE ADMISSIONS): Home regimen includes lantus 30 IU nightly [...] SSI Assessment & Plan (08/02/2019 9:45 AM DIRECTOR OF GRADUATE ADMISSIONS): -HgA1C well controlled -continue lantus and SSI Assessment & Plan (08/01/2019 10:36 AM DIRECTOR OF GRADUATE ADMISSIONS): -HgA1C well controlled -continue lantus and SSI Assessment & Plan (07/31/2019 3:54 PM DIRECTOR OF GRADUATE ADMISSIONS): Recheck hemglobin a1c - last one recored in september 2016- 7.5 Patient states hemglobin a1c controlled as outpatient Continue lantus 30 units at [facility] and SSI CAD in [place] artery 01/07/2014 025 Overview (02/23/2021): Coronary artery disease with history of coronary artery bypass graft with a MARIN to the LAD and free radial graft to obtuse marginal with multiple subsequent PCI to the right coronary artery. Assessment & Plan (05/27/2024 5:29 AM DIRECTOR OF GRADUATE ADMISSIONS): SP CABG (MARIN-LAD, free radial graft-OM ) S/p PCI to RCA - hold asa, hold coreg - statins held previously due to prior abnormal LFTs - continue trop trend to peak; currently chest pain free though he did take nitro in last 2-3 days Assessment & Plan (04/19/2024 12:39 PM DIRECTOR OF GRADUATE ADMISSIONS): SP CABG -Asymptomatic. -Negative troponin. -continue with ASA and coreg. -holding statins d/t abnormal LFTs Assessment & Plan (04/18/2024 1:41 PM DIRECTOR OF GRADUATE ADMISSIONS): SP CABG -Asymptomatic. -Negative troponin. -continue with ASA and coreg. Assessment & Plan (04/18/2024 1:43 AM DIRECTOR OF GRADUATE ADMISSIONS): SP CABG Asymptomatic. Negative troponin. CW ASA, [...] carvedilol Assessment & Plan (07/31/2019 4:08 PM DIRECTOR OF GRADUATE ADMISSIONS): Admitted with chest pain relieved in setting [...] = 0.6 oz pur e alcohol) [facility] Utilities Answer Date Recorded In [...] often do you attend chur ch or sikh services? More than 4 times per year 08/25/2024 Do you belong to any clubs o r organizations such as catholic groups, unions, fraternal or athletic groups, or [...] place to sleep or slept in a detention (including now)? Patient refused 03/23/2023 Housing Stability [...] any time in the past 12 m [facility], were you homeless or living in a detention (including now)? No 08/25/2024 Personal Safety Answer Date Recorded Have you ever been in or are you currently in a harmful physical or emotional relationship or is someone making you feel afraid or unsafe? Denies 08/23/2024 Sex and Gender Information Value Date Recorded Sex Assigned at Not on file Legal Sex Male 12:11 AM DIRECTOR OF GRADUATE ADMISSIONS Gender Identity Not on file Sexual Orientation Not on file Last Filed Vital Signs Vital Sign Reading Time Taken Comments Blood Pressure 111/72 12/04/2024 11:01 AM CDT Pulse 63 12/06/2024 10:05 AM CDT Temperature 36.4 C (97.5 F) 08/31/2024 11:29 AM CDT Respiratory Rate 18 08/31/2024 11:29 AM CDT Oxygen Saturation 100% 12/06/2024 10:05 AM CDT Inhaled Oxygen Concentration - - Weight 104.8 kg (231 lb) 12/06/2024 10:05 AM CDT per pt. Height 177.8 cm (5' 10) 10/25/2024 9:11 AM CDT Body Mass Index 33.15 10/25/2024 9:11 AM CDT Plan of Treatment Not on file Medical Devices Implanted Type Area Manager Plumbing Device Identifier Shelf Expiration Date Model / Serial / Lot Icd ICD Left: Chest Wall Medtronic Lvad LVAD Left: Abdomen [employer]/C R Bard Ventralight St Sepra 8x6in Uncoated Monofilament Lightweight [id number] - [id number] Implanted:Qty: 1 on 03/22/2023 by Tony Blood MD at [facility] Mesh N/A: Abdomen [employer] Bard [id number] 09/24/2024 [id number] / [id number] Procedures Procedure Name Priority Date/Time Associated Diagnosis Comments EGFR Routine 12/06/2024 10:49 AM CDT LVAD (left ventricular assist device) present (HCC) EGFR Routine 12/06/2024 10:49 AM CDT 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 DIFFERENTIAL AUTO Routine 12/06/2024 10: 49 AM CDT LVAD (left ventricular assist device) present (HCC) BLOOD MISC TO [place] Routine 12/06/2024 10 :49 AM CDT CBC WITH AUTO DIFFERENTIAL Routine 12/06/2024 10:49 AM CDT LVAD (left ventricular assist device) present (HCC) COMPREHENSIVE METABOLIC PANEL Routine 12/06/2024 10:49 AM CDT LVAD (left ventricular assist device) present (HCC) LACTATE DEHYDROGENASE Routine 12/06/2024 10:49 AM CDT LVAD (left ventricular assist device) present (HCC) PROTIME-INR Routine 12/06/2024 10:49 AM CDT LVAD (left ventricular assist device) present (HCC) COMPREHENSIVE METABOLIC PANEL Routine 12/06/2024 10:49 AM CDT 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 HIV 1/2 ANTIBODY PLUS P24 ANTIGEN Routine 12/06/2024 10:49 AM CDT Screen for sexually transmitted diseases COMPREHENSIVE METABOLIC PANEL Routine 12/05/2024 CBC WITH AUTO DIFFERENTIAL Routine 12/05/2024 PROTIME-INR Routine 12/05/2024 PROTIME-INR Routine 11/27/2024 SCAN - LABS 11/23/2024 12:00 AM CDT PROTIME-INR Routine 11/23/2024 COMPREHENSIVE METABOLIC PANEL Routine 11/20/2024 11:35 AM CDT CBC WITH AUTO DIFFERENTIAL Routine 11/20/2024 11:35 AM CDT PROTIME-INR Routine 11/20/2024 11:35 AM CDT PROTIME-INR Routine 11/20/2024 SCAN - LABS 11/20/2024 12:00 AM CDT PROTIME-INR Routine 11/13/2024 PROTIME-INR Routine 11/12/2024 2:35 PM CDT CBC WITH AUTO DIFFERENTIAL Routine 11/12/2024 2:35 PM CDT SURGICAL PATHOLOGY Routine 11/12/2024 12 :00 AM CDT Neoplasm of unspecified behavior of bone, soft tissue, and skin COMPREHENSIVE METABOLIC PANEL Routine 11/12/2024 PROTIME-INR Routine 11/06/2024 COMPREHENSIVE METABOLIC PANEL Routine [...] 09/10/2024 CBC WITH AUTO DIFFERENTIAL Routine 09/10/2024 HEMOGLOBIN A1C STAT 08/23/2024 4:33 PM CDT FLEXIBLE SIGMOIDOSCOPY 05/29/2024 9:01 AM DIRECTOR OF GRADUATE ADMISSIONS LIPID PANEL STAT 05/26/2024 5:30 PM DIRECTOR OF GRADUATE ADMISSIONS HEPATITIS C RNA, QUANTITATIVE, PCR STAT 04/17/2024 6:26 PM DIRECTOR OF GRADUATE ADMISSIONS COLONOSCOPY REPORT 10/16/2013 from Last 3 Months or Most Recently Relevant to Health Maintenance Results * eGFR (12/06/2024 10:49 AM CDT) eGFR 60 >=60 mL/min/1. 73 m2 [...] interpretive data was last reviewed 2021. Blood 12/06/2024 10:4 9 AM CDT 12/06/2024 11:35 AM CDT Chloe Keys NP LAB BLOOD ORDERABLES Final Result [facility] [address] [facility]. [place] [address] * eGFR (12/06/2024 10:49 AM CDT) eGFR 60 >=60 mL/min/1. 73 m2 [...] interpretive data was last reviewed 2021. Blood 12/06/2024 10:4 9 AM CDT 12/06/2024 11:35 AM CDT us Americo Mcneil MD LAB BLOOD ORDERABLES Fi nal Result [facility] [address] [facility]. [place] [address] * (ABNORMAL) Differential, auto (12/06/2024 10:49 AM CDT) Neutrophil abs 5.68 1.50 - 6.50 K/cumm Imm gran abs 0.06 0.00 - 0.10 K/cumm [facility] Lymphocyte abs 0.96 0.80 - 3.30 K/cumm [facility] Monocyte abs 0.76 0.20 - 0.80 K/cumm [facility] Eosinophil abs 0.58(H) 0.00 - 0.50 K/cumm [facility] Basophil abs 0.09 0.00 - 0.10 K/cumm [facility] Neutrophil pct 70.0 % [facility] Comment: Interpretive Data Percent cell count reference ranges are not reported, since discordance with absolute values may lead to misinterpretation of CBC data. Current Interpretive Data was last revised on 2017. Imm gran pct 0.7 % [facility] Comment: Interpretive Data Percent cell count reference ranges are not reported, since discordance with absolute values may lead to misinterpretation of CBC data. Current Interpretive Data was last revised on 2017. Lymphocyte pct 11.8 % [facility] Comment: Interpretive Data Percent cell count reference ranges are not reported, since discordance with absolute values may lead to misinterpretation of CBC data. Current Interpretive Data was last revised on 2017. Monocyte pct 9.3 % [facility] Comment: Interpretive Data Percent cell count reference ranges are not reported, since discordance with absolute values may lead to misinterpretation of CBC data. Current Interpretive Data was last revised on 2017. Eosinophil pct 7.1 % [facility] Comment: Interpretive Data Percent cell count reference ranges are not reported, since discordance with absolute values may lead to misinterpretation of CBC data. Current Interpretive Data was last revised on 2017. Basophil pct 1.1 % [facility] Comment: Interpretive Data Percent cell count reference ranges are not reported, since discordance with absolute values may lead to misinterpretation of CBC data. Current Interpretive Data was last revised on 2017. Blood 12/06/2024 10:4 9 AM CDT 12/06/2024 11:35 AM CDT us Chloe Keys NP LAB BLOOD ORDERABLES Final Result [facility] [address] [facility]. [place] [address] * HIV 1/2 Antibody plus p24 Antigen Blood (12/06/2024 10:49 AM CDT) HIV 1/2 ab + p24 ag Nonreactive Nonreactive Comment: Nonreactive for HIV-1 antigen and HIV-1/HIV-2 antibodies. No laboratory evidence of HIV infection. If acute HIV infection is suspected, consider testing for HIV-1 RNA. Testing performed by: [facility], [facility], [place]., [address] Blood 12/06/2024 10:4 9 AM CDT 12/06/2024 2:51 PM CDT us Americo Mcneil MD LAB MICROBIOLOGY - GENE RAL ORDERABLES Final Result Performing Organization Address [facility] Co de Phone Number [facility] [address] [facility] [facility] [place] [address] * (ABNORMAL) CBC with auto differential (12/06/2024 10:49 AM CDT) WBC 8.13 3.80 - 9.90 K/cumm Hgb 13.3 13.0 - 17.5 g/dL [facility] Hct 40.9 38.9 - 50.3 % [facility] W Plt 182 150 - 400 K/cumm [facility] MPV 10.9 9.1 - 12.3 fL [facility] RBC 4.26(L) 4.30 - 5.80 M/cumm [facility] MCV 96.0 81.3 - 96.4 fL [facility] MCH 31.2 27.1 - 33.3 pg [facility] MCHC 32.5 32.3 - 35.7 g/dL [facility] RDW CV 14.5 11.1 - 14.9 % [facility] RDW SD 50.9(H) 35.7 - 48.[address] [facility] NRBC abs 0.00 0.00 - 0.01 K/cumm [facility] Blood 12/06/2024 10:4 9 AM CDT 12/06/2024 11:35 AM CDT Chloe Keys NP LAB BLOOD ORDERABLES Final Result Performing Organization Address [facility]/ZIP Co de Phone Number [facility] [address] [facility] [facility] [place], [place] [id number] * (ABNORMAL) Protime-INR (12/06/2024 10:49 AM CDT) PT 15.1(H) 9.7 - 13.0 sec INR 1.39(H) 0.90 - 1.20 [facility] Comment: Interpretive data Oral anticoagulant therapeutic ranges: Venous thromboembolism prophylaxis or treatment: 2.0-3.0 CARDIOLOGY Standard range: 2.0-3.0 High-intensity range: 2.5-3.5 Refer to indication-specific guidelines for appropriate target ranges for prosthetic heart valve replacement. Current interpretive data was last revised on 2019. Blood 12/06/2024 10:4 9 AM CDT 12/06/2024 11:35 AM CDT Chloe Keys LAB BLOOD ORDERABLES Final Result Performing Organization Address [facility] de Phone Number [facility] [address] [facility] [place], [place] [id number] * (ABNORMAL) Lactate dehydrogenase (LD) (12/06/2024 10:49 AM CDT) Lactate dehydrogenase (LDH) 280(H) 100 - 250 Units/L Blood 12/06/2024 10:4 9 AM CDT 12/06/2024 11:35 AM CDT Chloe Keys LAB BLOOD ORDERABLES Final Result Performing Organization Address [facility] Phone Number [facility] [address] [facility] [place], [place] [id number] * (ABNORMAL) Comprehensive metabolic panel (12/06/2024 10:49 AM CDT) Sodium 141 135 - 145 mmol/L Potassium, pl 4.5 3.3 - 4.9 mmol/L [facility] Chloride 106 97 - 110 mmol/L [facility] CO2 23 22 - 32 mmol/L [facility] Anion gap 12 2 - 15 mmol/L [facility] BUN 22 6 - 25 mg/dL [facility] Creatinine 1.24 0.80 - 1.30 mg/dL [facility] Glucose 173 70 - 199 mg/dL [facility] Comment: Interpretive Data Fasting glucose >/= [...] 2022. Calcium 8.6 8.5 - 10.3 mg/dL [facility] Bilirubin, total 0.5 0.1 - 1.2 mg/dL [facility] Protein, pl 6.9 6.5 - 8.5 g/dL [facility] Albumin 3.9 3.5 - 5.0 g/dL [facility] Alk phos 153(H) 40 - 130 Units/L [facility] ALT 55 7 - 55 Units/L [facility] AST 48 10 - 50 Units/L [facility] Blood 12/06/2024 10:4 9 AM CDT 12/06/2024 11:35 AM CDT Chloe Keys [employer] LAB BLOOD ORDERABLES Final Result [facility] [address] [facility]. [place] [address] * (ABNORMAL) Comprehensive metabolic panel (12/06/2024 10:49 AM CDT) Sodium 141 135 - 145 mmol/L Potassium, pl 4.5 3.3 - 4.9 mmol/L [facility] Chloride 105 97 - 110 mmol/L [facility] CO2 24 22 - 32 mmol/L [facility] Anion gap 12 2 - 15 mmol/L [facility] BUN 22 6 - 25 mg/dL [facility] Creatinine 1.25 0.80 - 1.30 mg/dL [facility] Glucose 177 70 - 199 mg/dL [facility] Comment: Interpretive Data Fasting glucose >/= 126 [...] interpretive data was last revised 2022. Calcium 8.8 8.5 - 10.3 mg/dL [facility] Bilirubin, total 0.5 0.1 - 1.2 mg/dL [facility] Protein, pl 7.2 6.5 - 8.5 g/dL [facility] Albumin 4.1 3.5 - 5.0 g/dL [facility] Alk phos 157(H) 40 - 130 Units/L [facility] ALT 56(H) 7 - 55 Units/L [facility] AST 48 10 - 50 Units/L [facility] Blood 12/06/2024 10:4 9 AM CDT 12/06/2024 11:35 AM CDT us Americo Mcneil MD LAB BLOOD ORDERABLES Fi nal Result [facility] [address] [facility]. [place] [address] * (ABNORMAL) CBC with auto differential (12/05/2024) SCRIBED WBC 6.9 3.8 - 10.8 K/cumm [facility] Hemoglobin 11.6(A) 13.2 - 17.1 g/dL [facility] Hematocrit 36.1(A) 38.5 - 50.0 % [facility] Platelets 157 140 - 400 K/cumm [facility] RBC 3.66(A) 4.20 - 5.80 M/cumm [facility] Eosinophils Abs 545.0(A) 15.0 - 500.0 K/cumm [facility] Blood 12/05/2024 us Suresh Verma MD LAB BLOOD ORDERABLES Fin al Result [facility] * (ABNORMAL) Protime-INR (12/05/2024) SCRIBED PT 15.1(A) 9.0 - 11.5 sec [facility] INR 1.4(A) 2.0 - 3.0 sec [facility] Blood 12/05/2024 us Suresh Verma MD LAB BLOOD ORDERABLES Fin al Result Performing Organization Address [facility] Co de Phone Number [facility] * (ABNORMAL) Comprehensive metabolic panel (12/05/2024) SCRIBED Sodium 142 135 - 146 mmol/L [facility] Potassium 4.1 3.5 - 5.3 mmol/L [facility] Chloride 109 98 - 110 mmol/L [facility] Carbon Dioxide 26 20 - 32 mmol/L [facility] Urea Nitrogen (BUN) 24 7 - 25 mg/dl [facility] Creatinine 1.16 0.70 - 1.26 mg/dl [facility] Glucose 67 65 - 99 mg/dl [facility] Calcium 8.6 8.6 - 10.3 mg/dl [facility] Bilirubin 0.5 0.2 - 1.2 mg/dl [facility] Plasma Protein 5.9(A) 6.1 - 8.1 g/dl [facility] Albumin 3.5(A) 3.6 - 5.1 g/dl [facility] Alkaline Phosphatase 117 35 - 144 Units/L [facility] Alanine Transaminase (ALT) 40 9 - 46 Units/L [facility] Aspartate Transaminase (AST) 33 10 - 35 Units/L [facility] eGFR in NonAfrican Argentine 65 >60 [facility] A/G Ratio 1.5 1.0 - 2.5 [facility] Blood 12/05/2024 us Suresh Verma MD LAB BLOOD ORDERABLES Fin al Result [facility] * (ABNORMAL) Protime-INR (11/27/2024) INR 1.80(A) 0.90 - 1.10 Blood Result [facility] Historical Provider LAB BLOOD ORDERABLES Maia l Result * SCAN - LABS (11/23/2024 12:00 AM CDT) Provider Scanning Edited Result - Final * (ABNORMAL) Protime-INR (11/23/2024) SCRIBED PT 18.4(A) 9.0 - 11.5 sec [facility] INR 1.8 0.9 - 4.0 sec [facility] Blood 11/23/2024 Result [facility] Suresh Verma MD LAB BLOOD ORDERABLES Fin al Result Performing Organization Address [facility] Co de Phone Number [facility] * (ABNORMAL) CBC with auto differential (11/20/2024 11:35 AM CDT) SCRIBED WBC 6.5 3.8 - 10.8 k/cumm [facility] Hemoglobin 11.9(A) 13.2 - 17.1 g/dL [facility] Hematocrit 37.7(A) 38.5 - 50.0 % [facility] Platelets 177 140 - 400 k/cumm [facility] Eosinophils Abs 702(A) 15 - 500 k/cumm [facility] Blood 11/20/2024 11:3 5 AM CDT Result [facility] Suresh Verma MD LAB BLOOD ORDERABLES Fin al Result Performing Organization Address City/State/[facility] Co de Phone Number [facility] * (ABNORMAL) Protime-INR (11/20/2024 11:35 AM CDT) SCRIBED PT 19.8(A) 9.0 - 11.5 sec [facility] INR 1.9(A) 2.0 - 3.0 sec [facility] Blood 11/20/2024 11:3 5 AM CDT us Suresh Verma MD LAB BLOOD ORDERABLES Fin al Result Performing Organization Address [facility]/State/ZIP Co de Phone Number [facility] * (ABNORMAL) Comprehensive metabolic panel (11/20/2024 11:35 AM CDT) SCRIBED Sodium 138 135 - 146 mmol/L [facility] Potassium 4.7 3.5 - 5.3 mmol/L [facility] Chloride 105 98 - 110 mmol/L [facility] Carbon Dioxide 25 20 - 32 mmol/L [facility] Urea Nitrogen (BUN) 22 7 - 25 mg/dl [facility] Creatinine 1.16 0.70 - 2.28 mg/dl [facility] Glucose 186(A) 65 - 99 mg/dl [facility] Calcium 8.5(A) 8.6 - 10.3 mg/dl [facility] Bilirubin 0.5 0.2 - 1.2 mg/dl [facility] Plasma Protein 6.1 6.1 - 8.1 g/dl [facility] Albumin 3.8 3.6 - 5.1 g/dl [facility] Alkaline Phosphatase 107 35 - 144 Units/L [facility] Alanine Transaminase (ALT) 47(A) 9 - 46 Units/L [facility] Aspartate Transaminase (AST) 38(A) 10 - 35 Units/L [facility] S[facility] eGFR in 65 >=60 [facility] S[facility] eGFR in NonAfrican Argentine 65 >=60 [facility] Globulin 2.3 1.0 - 2.5 g/dL (calc) [facility] ALB/GLOB RATIO CALC 1.7 1.0 - 2.5 [facility] Blood 11/20/2024 11:3 5 AM CDT us Suresh Verma MD LAB BLOOD ORDERABLES Fin al Result [facility] * SCAN - LABS (11/20/2024 12:00 AM CDT) Result [facility] Provider Scanning Final Result * (ABNORMAL) Protime-INR (11/20/2024) INR 1.90(A) 0.90 - 1.10 Blood Result [facility] Historical Provider LAB BLOOD ORDERABLES Maia l Result * (ABNORMAL) Protime-INR (11/13/2024) Pathologist [facility] INR 1.80(A) 0.90 - 1.10 Blood Result [facility] Provider LAB BLOOD ORDERABLES Maia l Result * (ABNORMAL) CBC with auto differential (11/12/2024 2:35 PM CDT) Pathologist [facility] SCRIBED WBC 7.36 4.5 - 11.0 k/cumm TXP NO LAB FOUND SCRIBED Hemoglobin 11.4(A) 14.0 - 18.0 g/dL TXP NO LAB FOUND SCRIBED Hematocrit 34.6(A) 43.0 - 54.0 % TXP NO LAB FOUND SCRIBED Platelets 157 130 - 400 k/cumm TXP NO LAB FOUND SCRIBED Eosinophils Abs 0.57(A) 0.04 - 0.54 k/cumm TXP NO LAB FOUND Blood 11/12/2024 2:35 PM CDT Result [facility] Suresh Verma MD LAB BLOOD ORDERABLES Fin al Result [facility] NO LAB FOUND * (ABNORMAL) Protime-INR (11/12/2024 2:35 PM CDT) Pathologist [facility] SCRIBED PT 20.4(A) 10.2 - 12.9 sec TXP NO LAB FOUND SCRIBED INR 1.8(A) 2.0 - 3.0 sec TXP NO LAB FOUND Blood 11/12/2024 2:35 PM CDT us Suresh Verma MD LAB BLOOD ORDERABLES Fin al Result [facility] NO LAB FOUND * (ABNORMAL) Comprehensive metabolic panel (11/12/2024) SCRIBED Sodium 139 136 - 145 mmol/L TXP NO LAB FOUND SCRIBED Potassium 4.4 3.5 - 5.1 mmol/L TXP NO LAB FOUND SCRIBED Chloride 110 97 - 115 mmol/L TXP NO LAB FOUND SCRIBED Carbon Dioxide 25.3 21 - 32 mmol/L TX[facility] NO LAB FOUND SCRIBED Anion Gap 3.7 2 - 10 mmol/L TXP NO LAB FOUND SCRIBED Urea Nitrogen (BUN) 28(A) 7 - 18 mg/dl TXP NO LAB FOUND SCRIBED Creatinine 1.19 0.7 - 1.3 mg/dl TXP NO LAB FOUND SCRIBED Glucose 88 70 - 99 mg/dl TXP NO LAB FOUND SCRIBED Calcium 8.5 8.5 - 10.1 mg/dl TXP NO LAB FOUND SCRIBED Bilirubin 0.3 0.2 - 1.2 mg/dl TXP NO LAB FOUND SCRIBED Plasma Protein 5.9(A) 6.4 - 8.2 g/dl TXP NO LAB FOUND SCRIBED Albumin 3.0(A) 3.4 - 5.0 g/dl TXP NO LAB FOUND SCRIBED Alkaline Phosphatase 134 50 - 136 Units/L TXP NO LAB FOUND SCRIBED Alanine Transaminase (ALT) 74(A) 16 - 60 Units/L TXP NO LAB FOUND SCRIBED Aspartate Transaminase (AST) 64(A) 15 - 37 Units/L TXP NO LAB FOUND SCRIBED eGFR in NonAfrican Argentine 63 >90 TXP NO LAB FOUND Alb/glob ratio 1.0 1.0 - 2.0 TXP N O LAB FOUND BUN_Creat Ratio 23.5 6 - 26 TXP NO LAB FOUND Blood 11/12/2024 us Suresh Verma MD LAB BLOOD ORDERABLES Fin al Result Performing Organization Address [facility]/ZIP Co de Phone Number TXP NO LAB FOUND * Surgical pathology (11/12/2024 12:00 AM CDT) Tissue (Skin, shave biopsy) 11/12/2024 11/13/2024 7:25 AM CDT [facility] - 11/14/2024 3:43 PM CDT EPIC results best viewed via link to PDF [facility] Dermatopathology [place] [address], [address], [place] [address] [email or web address] Note to Patients: This report may contain [...] SEVERINO III SEX: M : [id number] (Age: 74) Specimen Information: COLLECTED: 11/12/2024 RECEIVED: 11/13/2024 REPORTED: 11/14/2024 Submitting Physician Information: Kevin Dodd M.D. Dermatology [facility] [address] ([facility] [address], [address] [place] [address], DERMATOPATHOLOGY REPORT RESULTS DIAGNOSIS: SKIN, LEFT FOREHEAD, SHAVE BIOPSY: SQUAMOUS CELL CARCINOMA IN SITU Note: The lesion extends to the deep margin of the sections examined. Invasive squamous cell carcinoma cannot be unequivocally ruled out. freda/isr By this signature, I attest that the above diagnosis is based upon my personal examination of the slides(and/or other material indicated in the diagnosis). Radha Olmedo M.D. Report Electronically Reviewed and Signed Out By Radha Olmedo M.D. 11/14/2024 15:43:01 CLINICAL INFORMATION R/O [facility] SPECIMEN DATA MICROSCOPIC DESCRIPTION: Atypical keratinocytes are present throughout the entire thickness of the epidermis. (D04.9) GROSS DESCRIPTION: Received in a formalin-containing bottle is a superficial fragment of pale mosqueda, scaly and mildly domed skin measuring 0.5 by 0.4 by 0.1 cm. The surgical margin is inked blue. The specimen is sectioned into 2 pieces and submitted entirely in a single cassette. Due to shrinkage, measurements may be different than those at time of procedure. exr/mat ICD-9 A; ZSD.1474 Clerical Data A; 85371 The characteristics of special, immunohistochemical, and immunofluorescence stains and in-situ hybridization tests performed by the [facility] were deemed acceptable in ongoing quality process engineer measures and in compliance with regulations drawn from the Clinical Laboratory Improvement Act vi8293 (CLIA '88). Control reactions for all stains performed were deemed adequate and appropriate by a pathologist prior to evaluation of patient tissue. Some diagnoses were rendered with the assistance of laboratory-developed tests utilizing analyte-specific reagents; the performance characteristic of these tests were determined by [facility] and are not cleared or approved by the [place] Food an Drug administration. Laboratory developed test may only be performed in a facility that is certified by the [facility] as a high-complexity laboratory under CLIA '88. These tests are used for clinical purposes and are not investigational. Kevin Dodd MD LAB PATHOLOGY ORDERABL ES Final Result [facility] [address] [place] [phone] * (ABNORMAL) Protime-INR (11/06/2024) Pathologist [facility] INR 1.60(A) 0.90 - 1.10 Blood [facility] Provider LAB BLOOD ORDERABLES Maia l [...] 35 Units/L [facility] SCRIBED eGFR in NonAfrican Argentine 74 >=60 [facility] Globulin 2.5 1.9 - 3.7 g/dL (calc) [facility] [place]/glob ratio 1.5 1.0 - 2.5 [facility] Blood 11/05/2024 Alfredo Spaulding MD LAB BLOOD ORDERABLES Final Re sult [facility] * (ABNORMAL) Protime-INR (11/02/2024) INR 3.00(A) 0.90 - 1.10 Blood Crys Avila MD LAB BLOOD ORDERABLES Maia l Result * (ABNORMAL) CBC with auto differential (10/29/2024 11:38 AM CDT) SCRIBED WBC 6.1 3.8 - 10.8 k/cumm [facility] SCR[facility] Hemoglobin 11.8(A) 13.2 - 17.1 g/dL [facility] Hematocrit 37.0(A) 38.5 - 50.0 % [facility] SCRIB[facility] Platelets 190 140 - 400 k/cumm [facility] SCRIB[facility] Eosinophils Abs 689(A) 15 - 500 k/cumm [facility] Blood 10/29/2024 11:3 8 AM CDT Suresh Verma MD LAB BLOOD ORDERABLES Fin al Result [facility] * (ABNORMAL) Protime-INR (10/29/2024 11:38 AM CDT) SCRIBED PT 30.2(A) 9.0 - 11.5 sec [facility] SCRIB[facility] INR 3.0 2.0 - 3.0 sec [facility] Blood 10/29/2024 11:3 8 AM CDT Suresh Verma MD LAB BLOOD ORDERABLES Fin al Result [facility] * (ABNORMAL) Comprehensive metabolic panel (10/29/2024 [...] 35 Units/L [facility] SCRIBED eGFR in NonAfrican Argentine 83 >=60 [facility] Blood 10/29/2024 11:3 8 AM CDT Suresh Verma MD LAB BLOOD ORDERABLES Fin al Result [facility] * (ABNORMAL) Protime-INR (10/24/2024) INR 3.70(A) 0.90 - 1.10 Blood Historical Provider LAB [...] FOUND Blood 10/23/2024 12:1 5 PM CDT Suresh Verma MD LAB BLOOD ORDERABLES Fin al Result Performing Organization Address [facility] de Phone Number [facility] NO LAB FOUND * (ABNORMAL) Protime-INR (10/23/2024) INR 4.70(A) 0.90 - 1.10 Blood Crys Avila MD LAB BLOOD ORDERABLES Maia l Result * (ABNORMAL) Protime-INR (10/23/2024) SCRIBED PT 40.6(A) 10.2 - 12.9 sec TXP NO LAB FOUND SCRIBED INR 3.7(A) 2.0 - 3.5 sec TXP NO LAB FOUND Blood 10/23/2024 Suresh Verma MD LAB BLOOD ORDERABLES Fin al Result Performing Organization Address [facility] de Phone Number TX[facility] NO LAB FOUND * (ABNORMAL) Comprehensive [...] NO LAB FOUND SCRIBED eGFR in NonAfrican Argentine 59 >90 TXP NO LAB FOUND BUN_Creat Ratio 19.0 6 - 26 TXP NO LAB FOUND Alb/glob ratio 1.1 1.0 - 2.0 TXP N O LAB FOUND Blood 10/23/2024 us Suresh Verma MD LAB BLOOD ORDERABLES Fin al Result Performing Organization Address [facility] Co de Phone Number TXP NO LAB FOUND * (ABNORMAL) CBC with auto differential (10/16/2024) SCRIBED WBC 6.4 3.8 - 10.8 k/cumm [facility] SCRIBED Hemoglobin 11.2(A) 13.2 - 17.1 g/dL [facility] SCR[facility] Hematocrit 35.4(A) 38.5 - 50.0 % [facility] SCRIBED Platelets 191 140 - 400 k/cumm [facility] Blood 10/16/2024 us Suresh Verma MD LAB BLOOD ORDERABLES Fin al Result [facility] * (ABNORMAL) Protime-INR (10/16/2024) SCRIBED PT 45.5(A) 9.0 - 11.5 sec [facility] SCRIBED INR 4.7(A) 2.0 - 3.0 sec [facility] Blood 10/16/2024 us Suresh Verma MD LAB BLOOD ORDERABLES Fin al Result [facility] * (ABNORMAL) Comprehensive metabolic panel (10/16/2024) [...] 35 Units/L [facility] SCRIBED eGFR in NonAfrican [place] 65 >60 [facility] A/G Ratio 1.4 1.0 - 2.5 [facility] Blood 10/16/2024 Suresh Verma MD LAB BLOOD ORDERABLES Ayo leyla Result - Final [facility] * (ABNORMAL) Protime-INR (10/11/2024) Pathologist [facility] INR 1.60(A) 0.90 - 1.10 Blood Historical Provider LAB BLOOD ORDERABLES Maia l Result * (ABNORMAL) CBC with auto differential (10/10/2024 1:05 PM CDT) Pathologist [facility] SCRIBED WBC 6.6 3.8 - 10.8 k/cumm [facility] SCRIBED Hemoglobin 11.1(A) 13.2 - 17.1 g/dL [facility] SCRIBED Hematocrit 33.8(A) 38.5 - 50.0 % [facility] SCRIBED Platelets 187 140 - 400 k/cumm [facility] Blood 10/10/2024 1:05 PM CDT Suresh Verma MD LAB BLOOD ORDERABLES Fin al Result Performing Organization Address [facility]/ZIP Co de Phone Number [facility] * (ABNORMAL) Protime-INR (10/10/2024 1:05 PM CDT) [facility] SCRIBED PT 16.9(A) 9.0 - 11.5 sec [facility] SCRIBED INR 1.6(A) 2.0 - 3.0 sec [facility] Blood 10/10/2024 1:05 PM CDT us Suresh Verma MD LAB BLOOD ORDERABLES Fin al Result Performing Organization Address [facility] [place]/[facility] Co de Phone Number [facility] * (ABNORMAL) Comprehensive metabolic panel (10/10/2024 1:05 PM CDT) Pathologist [facility] SCRIBED Sodium 137 135 - 146 mmol/L [...] 35 Units/L [facility] SCRIBED eGFR in NonAfrican Argentine 69 >=60 [facility] Blood 10/10/2024 1:05 PM CDT Suresh Verma MD LAB BLOOD ORDERABLES Fin al Result Performing Organization Address [facility] [place]/[facility] Co de Phone Number [facility] * (ABNORMAL) [...] ORDERABLES Fin al Result Performing Organization Address [facility] [place]/[facility] de Phone Number [facility] * (ABNORMAL) Protime-INR (10/01/2024) SCRIBED PT 14.2(A) 9.0 - 11.5 sec [facility] SCRIBED INR 1.3 0.9 - 4.0 sec [facility] Blood 10/01/2024 Suresh Verma MD LAB BLOOD ORDERABLES Fin al Result Performing Organization Address City/[facility] Co de Phone Number [facility] * (ABNORMAL) Comprehensive metabolic panel (10/01/2024) [...] 35 Units/L [facility] SCRIBED eGFR in NonAfrican Argentine 64 >=60 [facility] Globulin 2.1 1.9 - 3.7 g/dL (calc) [facility] Alb/glob ratio 1.6 1.0 - 2.5 [facility] Blood 10/01/2024 us Suresh Verma MD LAB BLOOD ORDERABLES Fin al Result [facility] * Surgical pathology (09/25/2024 12:00 AM CDT) Tissue (Skin, shave biopsy) 09/25/2024 09/26/2024 4:30 AM CDT Narrative [facility] - 09/27/2024 4:26 PM CDT EPIC results best viewed via link to PDF [facility] [address] [place] [address], [address], [place] [address] [email or web address] Note to Patients: This report may contain [...] 09/27/2024 Submitting Physician Information: JUAN Agrawal [address] [facility] [place] [id number] , [phone] DERMATOPATHOLOGY REPORT RESULTS DIAGNOSIS: A. SKIN, LEFT [...] ag/anc ICD-9 ZSD.1474 ZSD.176 Clerical Data A; 21711 B; 66492 The characteristics of special, immunohistochemical, and immunofluorescence stains and in-situ hybridization tests performed by the [facility] were deemed acceptable in ongoing quality process engineer measures and in compliance with regulations drawn from the Clinical Laboratory Improvement Act cq2525 (CLIA '88). Control reactions for all stains performed were deemed adequate and appropriate by a pathologist prior to evaluation of patient tissue. Some diagnoses were rendered with the assistance of laboratory-developed tests utilizing analyte-specific reagents; the performance characteristic of these tests were determined by [facility] and are not cleared or approved by the US Food an Drug administration. Laboratory developed test may only be performed in a facility that is certified by the [facility] as a high-complexity laboratory under CLIA '88. These tests are used for clinical purposes and are not investigational. us Tin MARTINEZ LAB PATHOLOGY ORDERABL ES Final Result [facility] [address] [place] [phone] * (ABNORMAL) CBC with auto differential (09/24/2024 [...] al Result EXTERNAL LAB * (ABNORMAL) Protime-INR (09/24/2024 1:30 PM CDT) SCRIBED PT 22.7(A) 10.2 - 12.9 sec EXTERNAL LAB SCRIBED INR 2.0 2.0 - 3.0 sec EXTERNAL LAB Blood 09/24/2024 1:30 PM CDT us Suresh Verma MD LAB BLOOD ORDERABLES Fin al Result Performing Organization Address City/[facility] Co de Phone Number EXTERNAL LAB * [...] Units/L EXTERNAL LAB SCRIBED eGFR in NonAfrican Argentine 69 >90 EXTERNAL LAB Blood 09/24/2024 1:30 PM CDT us Suresh Verma MD LAB BLOOD ORDERABLES Fin al Result EXTERNAL LAB * (ABNORMAL) Protime-INR (09/24/2024) INR 2.00(A) 0.90 - 1.10 Blood Historical Provider MD [...] Electronically signed by: Mono Nguyen MD Tammy Zavala PA IMG XR PROCEDURES Maia l Result * (ABNORMAL) Protime-INR (09/18/2024) Pathologist [facility] INR 1.90(A) 0.90 - 1.10 Blood Crys Avila MD LAB BLOOD ORDERABLES Maia l Result * (ABNORMAL) CBC with auto differential (09/17/2024) Pathologist [facility] SCRIBED WBC 6.0 3.8 - 10.8 k/cumm [facility] SCRIBED Hemoglobin 10.7(A) 13.2 - 17.1 g/dL [facility] SCRIBED Hematocrit 33.8 28.5 - 50 % [facility] SCRIBED Platelets 200 140 - 400 k/cumm [facility] Blood 09/17/2024 Result [facility] Suresh Verma MD LAB BLOOD ORDERABLES Fin al Result [facility] * (ABNORMAL) Protime-INR (09/17/2024) Pathologist [facility] SCRIBED PT 19.5(A) 9.0 - 11.5 sec [facility] SCRIBED INR 1.9(A) 2.0 - 3.0 sec [facility] Blood 09/17/2024 Result [facility] Suresh Verma MD LAB BLOOD ORDERABLES Fin al Result [facility] * (ABNORMAL) Comprehensive metabolic panel (09/17/2024) Pathologist [facility] SCRIBED Sodium 137 135 - 146 mmol/L [...] 35 Units/L [facility] SCRIBED eGFR in NonAfrican Argentine 57 >60 [facility] Urea nitrogen ur creatine ur ratio 16 6 - 22 [facility] A/G Ratio 1.4 1.0 - 2.5 [facility] Blood 09/17/2024 Result [facility] Suresh Verma MD LAB BLOOD ORDERABLES Fin al Result [facility] * (ABNORMAL) Protime-INR (09/11/2024) Pathologist [facility] INR 1.90(A) 0.90 - 1.10 Blood Result [facility] Crys Avila MD LAB BLOOD ORDERABLES Maia l Result * (ABNORMAL) CBC with auto differential (09/10/2024) Pathologist [facility] SCRIBED WBC 7.2 3.8 - 10.8 k/cumm SCRIBED Hemoglobin 10.7(A) 13.2 - 17.1 g/dL SCRIBED Hematocrit 33.1(A) 38.5 - 50.0 % SCRIBED Platelets 187 140 - 400 k/cumm Blood 09/10/2024 Result [facility] Suresh Verma MD LAB BLOOD ORDERABLES Fin al Result * (ABNORMAL) Protime-INR (09/10/2024) Pathologist [facility] SCRIBED PT 19.5(A) 9.0 - 11.5 sec SCRIBED INR 1.9(A) 0.9 - 1.1 sec Blood 09/10/2024 Suresh Verma MD LAB BLOOD ORDERABLES Fin al Result * (ABNORMAL) Comprehensive metabolic panel (09/10/2024) Pathologist [facility] SCRIBED Sodium 138 135 - 146 mmol/L [...] - 35 Units/L SCRIBED eGFR in NonAfrican Argentine 55 >60 BUN_Creat Ratio 17 6 - 22 Alb/glob ratio 1.4 1.0 - 2.5 Blood 09/10/2024 Suresh Verma MD LAB BLOOD ORDERABLES Fin al Result * (ABNORMAL) Hemoglobin A1c (08/23/2024 4:33 PM CDT) Pathologist [facility] Hgb A1C 7.1(H) 4.0 - 5.6 % Estimated Average Glucose 157 mg/dL [facility] Comment: The ADA recommends reporting an estimated Average Glucose (eAG) with all Hemoglobin A1c results using the equation derived from a study of 507 normal and diabetic adults. Minority populations were underrepresented and children were not included. (Diabetes Care 2020; 43(S1): S66-S76). The eAG is not equivalent to a fasting glucose. Blood 08/23/2024 4:33 PM CDT 08/23/2024 5:13 PM CDT us Suresh Wyman MD PhD LAB BLOOD ORDERABL ES Final Result [facility] [place] [address] * Flexible Sigmoidoscopy (05/29/2024 9:01 AM DIRECTOR OF GRADUATE ADMISSIONS) Anatomical Region Laterality Modality Other Narrative Procedure Note Robles Murphy MD - 05/29/2024 9:01 AM CST [facility] Patient Name: Cindy Severino Procedure Date: 05/29/2024 9:01 AM Date of : 1950 Admit Type: Inpatient Age: 73 Gender: Male Attending MD: Marquise Latham Room: [facility] ENDOSCOPY Note Status: Finalized Procedure: Flexible Sigmoidoscopy Indications: Rectal hemorrhage, Abnormal CT of the GI tract Referring MD: Suresh Verma M.D. Providers: Robles Murphy M.D., Royal Burgos M.D. Medicines: Monitored Anesthesia Care Complications: No immediate complications. Estimated Blood Loss: Estimated blood loss was minimal. Procedure: The benefits, risks, and alternatives to theprocedure and sedation were discussed and informed consentwas obtained. The [id number] endoscope was introduced through the anus [...] Note Initiated On: 05/29/2024 9:01 AM Robles AGUILERA Final Result * (ABNORMAL) Lipid panel (05/26/2024 5:30 PM DIRECTOR OF GRADUATE ADMISSIONS) Cholesterol 180 30 - 199 mg/dL Comment: [...] revised on 2018. Triglycerides 161(H) <=149 mg/dL [facility] Comment: Interpretive Data Ages < or = [...] revised on 2018. HDL 31(L) >=40 mg/dL [facility] Comment: Interpretive Data Ages < or = [...] ratio 6 [facility] Blood 05/26/2024 5:30 PM DIRECTOR OF GRADUATE ADMISSIONS 05/26/2024 5:47 PM DIRECTOR OF GRADUATE ADMISSIONS Narrative [facility] - 05/27/2024 1:24 AM DIRECTOR OF GRADUATE ADMISSIONS This lipid panel was automatically ordered due to a significant change in Troponin. The dietary status of the patient at the collection time should be correlated with the lipid results. us Abel Mak MD LAB BLOOD ORDERABLES Maia l Result Performing Organization Address City/State/[facility] de Phone Number [facility] [place] [address] * Hepatitis C (HCV) RNA PCR, quantitative Blood (04/17/2024 6:26 PM DIRECTOR OF GRADUATE ADMISSIONS) [facility] HCV RNA result Not Detected [facility] Comment: The quantifiable range of this assay is 15 IU/mL to 100,000,000 IU/mL (1.18 log IU/mL to 8.00 log IU/mL). Testing was performed by the [employer]LE[employer] 6800 HCV Test ([employer] Testing performed at [facility] Current Interpretive Data was last revised on 2021 Blood 04/17/2024 6:26 PM DIRECTOR OF GRADUATE ADMISSIONS 04/17/2024 6:46 PM DIRECTOR OF GRADUATE ADMISSIONS Olinda Harrell MD LAB MICROBIOLOGY - GENE RAL ORDERABLES Final Result Performing Organization Address [facility] de Phone Number [facility] [place] [address] [facility] * COLONOSCOPY REPORT (10/16/2013) Anatomical Region [...] 08/24/2024 08/24/2024 Insurance AETNA MEDICARE MEDICARE [facility] MEDICARE [facility] ([address] [address] AETNA MEDICARE MEDICARE [facility]EARCH A[employer] MEDICARE Advance Directives For more information, please contact: [phone] Documents on File Type Date Recorded Patient Infrastructure Project Manager Expl anation ADVANCE DIRECTIVE 12/07/2012 12:00 AM EVIE LAMBERT WILL ADVANCE DIRECTIVE 12/07/2012 12:00 AM JIMENA R OF LACQUER SPRAY BOOTH OPERATOR FINANCIAL/MEDICAL * Full Code (Latest Code Status [...] 3:02 PM 04/02/2023 5:36 PM Care Teams Coupler Relationship Specialty Start Date End Date Tika Araujo MD PCP - General Nurse Practitioner 03/27/20 Americo Mcneil MD [id number] [place] [address] PCP - Home Infusion Attending Infectious Diseases 10/15/24 Suresh Verma MD Lunch Counter Manager Transplant 09/16/18 Pao Allen, RN VAD Coordinator Transplant 03/20/19 Emmy Alicea Primary Jewel Blocker And Sawyer Transplant 08/14/24 Korey Warren, [facility] Pharmacist Pharmacy 10/23/24
--- OUTSIDE RECORDS SUMMARY | 2024-12-09 02:07 | XMS_ITS | Encounter Summary ---
Author Organization [facility] Address [address] [place] [address] Care Team Providers Care Immigration Consultant Name Role Phone Tika Araujo NP Primary Care Provider [phone] Araceli Perez MD Unavailable Lance Hernandez MD Unavailable [phone] Brendon Combs MD Unavailable Timmy Leblanc MD Unavailable [phone] Ibrahima Wade MD Unavailable [phone] Obi Sharma OD Unavailable [phone] Emilie Alva RN Unavailable [phone] Americo Mcneil MD Unavailable [phone] Suresh Verma MD Unavailable [phone] Eimlie Alva RN Unavailable [phone] Tika Arajuo NP Primary Care Provider [phone] Encounter Details Date Type Department Care Team (Late st Contact Info) Description 02/04/2022 Roomoramat Message Enc [facility] Family Medicine - [place] [address] [place], [place] [id number] Tika Araujo NP [address] [place] [address] follow up Social History Tobacco Use Types Packs/Day Years Used Date Smoking Tobacco: Never Smokeless Tobacco: Never Alcohol Use Standard Drinks/Week Comments Yes 0 (1 standard drink = 0.6 oz pur e alcohol) Rarely; glass of wine yearly AUDIT-C Answer Date Recorded Q1: How often do you have a drink containing alcohol? Never 11/24/2021 Q2: How many drinks containi ng alcohol do you have on a typical day when you are drinking? Patient does not drink Q3: How often do you have si x or more drinks on one occasion? Never 11/24/2021 PHQ-2 Answer Date Recorded PHQ-2 Score - If the patient scores above 3, please move on to questions 3-9 1 08/18/2021 PRAPARE - Transportation Answer Date Re corded [...] Sex Assigned at Male 06/12/2024 8:20 AM ADMISSIONS MANAGER RN Legal Sex Male 10:14 AM CDT Gender Identity Male 09/18/2024 2:31 PM CDT Sexual Orientation Straight 09/18/2024 2: 31 PM CDT documented as of this encounter Progress Notes * Kaylen Mendez MA - 02/09/2022 10:17 AM CDT I spoke with Leanne again and she will send another note over to the nurse. * Kaylen Mendez MA - 02/05/2022 2:45 PM CDT I spoke with Leanne with the cardiology office and she will forward the message to the Nurse to find out what they are doing the LDH level for documented in this encounter Plan of Treatment Upcoming Encounters Date Type Department Care Team (Late st Contact Info) Description 12/25/2024 1:00 PM CDT Office Visit [facility] Family Medicine - [place] [address] [place] [address] Tika Araujo NP [address] [place] [address] 01/21/2025 1:20 PM CDT Office Visit [facility] Family Medicine - [place] [address] [place] [address] Tika Araujo NP [address] [place] [address] 02/13/2025 7:00 AM CDT Office Visit [facility] Orthopedic & Sports Medicine - [place] [address] [place], [place] [id number] Timmy Leblanc MD [address] [place], [place] [address] documented as of this encounter Visit Diagnoses Not on filedocumented in this encounter Additional Health Concerns Assessment Noted Time PHQ-9 Depression Total Score: 4 08/19/19 22 10:34 AM CDT documented as of this encounter Care Teams Immigration Consultant Relationship Specialty Start Date End Date Tika Araujo NP [address] [place] [address] PCP - General NURSE PRACTITIONER 11/28/19 01/30/24 Tika Araujo NP [address] [place] [address] PCP - General NURSE PRACTITIONER 03/14/24 [place] [address] [facility]. [address] [address] RHEUMATOLOGY 06/24/20 Lance Hernandez MD [address] [place] [phone] DERMATOLOGY 06/24/20 [place] [address] [place] [id number] NEPHROLOGY 06/24/20 08/30/22 [place] [address] [place] [address] [facility] SPORTS MEDICINE 06/24/20 Ibrahima Wade MD [address] [place] [address] INTERVENTIONAL CARDIOLOGY 06/24/20 Obi Sharma, NANCI [address] [place] [address] Data Collection Technician 08/18/21 Emilie Alva, RN [address] [place], [place] [address] Certified Juvenile Probation Officer (Ambulatory) REGISTERED NURSE 03/05/22 04/11/22 Americo Mcneil MD [address] [place] [address] INFECTIOUS DISEASE 08/31/22 Suresh Verma MD [address] [place] [address] HEART & VASCULAR CARE 08/31/22 [place] [address] [place] [address] Certified Juvenile Probation Officer (Ambulatory) REGISTERED NURSE 03/15/23 04/18/23 documented as of this encounter
--- OUTSIDE RECORDS SUMMARY | 2024-12-09 02:07 | XMS_ITS | Encounter Summary ---
Author Organization [facility] Address [address] [place] [address] Phone Care Team Providers Care Supervisor Coil Winding Name Role Phone Suresh Verma MD Unavailable [phone] Pao Allen RN Unavailable [phone] Tika Araujo MD Primary Care Provider [phone] Emmy Alicea Unavailable Unavailable Americo Mcneil MD Unavailable [phone] Korey Warren [facility] Unavailable Unavail able [...] on file Legal Sex Male 12:11 AM MALT HOUSE LOADER Gender Identity Not on file Sexual Orientation [...] documented as of this encounter Care Teams Supervisor Coil Winding Relationship Specialty Start Date End Date Tika Araujo MD PCP - General Nurse Practitioner 03/27/20 Americo Mcneil MD [address] [facility] [phone] [place] [address] PCP - Home Infusion Attending Infectious Diseases 10/15/24 Suresh Verma MD Manager Council Transplant 09/16/18 Pao Allen, RN VAD Coordinator Transplant 03/20/19 Emmy Alicea Primary Brokerage Clerk Transplant 3/18/25 Korey Warren, [facility] Pharmacist Pharmacy 10/23/24 documented as of this encounter
--- OUTSIDE RECORDS SUMMARY | 2024-12-09 02:07 | XMS_ITS | Encounter Summary ---
Author Organization [facility] Address [address] [place] [address] Phone Care Team Providers Care Cath Lab Radiology Technician Name Role Phone Suresh Verma MD Unavailable [phone] Pao Allen RN Unavailable [phone] Tika Araujo MD Primary Care Provider [phone] Emmy Alicea Unavailable Unavailable Americo Mcneil MD Unavailable [phone] Korey Warren [facility] Unavailable Unavail able Encounter Details [...] Legal Sex Male 12:11 AM DIRECTOR OF CURRICULUM AND INSTRUCTION Gender Identity Not on file Sexual Orientation [...] documented as of this encounter Care Teams Cath Lab Radiology Technician Relationship Specialty Start Date End Date Tika Araujo MD PCP - General Nurse Practitioner 03/27/20 Americo Mcneil MD [address] [facility] [phone] [place] [address] PCP - Home Infusion Attending Infectious Diseases 10/15/24 Suresh Verma MD Oral And Maxillofacial Pathologist Transplant 09/16/18 Pao Allen, RN VAD Coordinator Transplant 03/20/19 Emmy Alicea Primary Concrete Block Mason Transplant 3/18/25 Korey Warren, [facility] Pharmacist Pharmacy 10/23/24 documented as of this encounter
--- OUTSIDE RECORDS SUMMARY | 2024-12-09 02:08 | XMS_ITS | Encounter Summary ---
Author Organization [facility] Address [address] [place] [address] Care Team Providers Care Chemical Packager Name Role Phone Araceli Perez MD Unavailable Lance Hernandez MD Unavailable [phone] Timmy Leblanc MD Unavailable [phone] Ibrahima Wade MD Unavailable [phone] Obi Sharma OD Unavailable [phone] Americo Mcneil MD Unavailable [phone] Suresh Verma MD Unavailable [phone] Tika Araujo NP Primary Care Provider [phone] Encounter Details Date Type Department Care Team (Late st Contact Info) Description 08/06/2024 Hospital Follow-up Call [facility] Family Medicine [facility] [address] [facility] [address] [place] [address] Tika Araujo NP [address] [place] [address] Social History Tobacco Use Types Packs/Day Years [...] Sex Assigned at Male 06/12/2024 8:20 AM METALLURGICAL TECHNICIAN Legal Sex Male 10:14 AM CDT Gender Identity Male 09/18/2024 2:31 PM CDT Sexual Orientation Straight 09/18/2024 2: 31 PM CDT documented as of this encounter Plan of Treatment Upcoming Encounters Date Type Department Care Team (Late st Contact Info) Description 12/25/2024 1:00 PM CDT Office Visit [facility] Family Medicine [address] [address] Tika Araujo NP [address] [address] 01/21/2025 1:20 PM CDT Office Visit [facility] Family Medicine [place] [id number] [address] [address] Tika Araujo NP [address] [address] 02/13/2025 7:00 AM CDT Office Visit [facility] Orthopedic & Sports Medicine - [place] [address] [place] [address] Timmy Leblanc MD [address] [place] [address] documented as of this encounter Visit Diagnoses Not on filedocumented in this encounter Additional Health Concerns Assessment Noted Time PHQ-9 Depression Total Score: 4 09/01/19 23 10:59 AM CDT documented as of this encounter Care Teams Chemical Packager Relationship Specialty Start Date End Date Tika Araujo NP [address] [place] [address] PCP - General NURSE PRACTITIONER 03/14/24 [place] [address] [facility]. [facility] [address] [place] [address] RHEUMATOLOGY 06/24/20 Lance Hernandez MD [address] [place] [place] [address] DERMATOLOGY 06/24/20 Timmy Leblanc MD [address] [place] [place] [address] FAMILY MEDICINE SPORTS MEDICINE 06/24/20 Ibrahima Wade MD [address] [place] [address] INTERVENTIONAL CARDIOLOGY 06/24/20 Obi Sharma, OD [address] [place] [address] Nail Mill Worker 08/18/21 mAerico Mcneil MD [address] [place] [address] INFECTIOUS DISEASE 08/31/22 Suresh Verma MD [address] [place] [address] HEART & VASCULAR CARE 08/31/22 documented as of this encounter
--- OUTSIDE RECORDS SUMMARY | 2024-12-09 02:08 | XMS_ITS | Clinical Summary ---
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 Psoriatic [...] AM CDT Pulse 64 04/11/2018 12:01 AM LADLE PULLER Temperature - - Respiratory Rate - - Oxygen Saturation - - Inhaled Oxygen Concentration - - Weight 112 kg (246 lb) 08/15/2019 11:12 AM CDT Height 177.8 cm (5' 10) 04/11/2018 12:01 AM LADLE PULLER Body Mass Index 35.3 04/11/2018 12:01 AM LADLE PULLER Plan of Treatment Health Maintenance Due Date Last Done Comments Pneumococcal PPSV23/PCV13 65 + Years / Low and Medium Risk (2 of 4 - PCV) 03/16/2008 03/16/2007 Influenza Vaccine (#1) 2025 8, 04/05/2016, 03/30/2016, Additional history exists Insurance A[employer]NA Care Teams Auto Motor Mechanic Relationship Specialty Start Date End Date Collin John MD PCP - General Endocrinology 08/15/19
--- OUTSIDE RECORDS SUMMARY | 2024-12-09 02:08 | XMS_ITS | Encounter Summary ---
Author Organization [facility] Address [address] [place] [address] Phone Care Team Providers Care Document Coordinator Name Role Phone Collin John MD Primary Care Provider Marietta Carroll RN Unavailable Jacque karthikble Suresh Verma MD Unavailable [phone] Pao Allen RN Unavailable [phone] Tika Araujo MD Primary Care Provider [phone] Tika Araujo MD Primary Care Provider [phone] Emmy Alicea Unavailable Unavailable Americo Mcneil MD Unavailable [phone] Korey Warren [facility] Unavailable Unavail able Encounter Details Date Type Department Care Team (Late st Contact Info) Description 12/10/2016 Orders Only [facility]INCONV Provider, MD Crys [address] [place] [id number] Social History Tobacco Use Types Packs/Day Years Used Date Smoking Tobacco: Never Alcohol Use Standard Drinks/Week Comments No 0 (1 standard drink = 0.6 oz pur e alcohol) Sex and Gender Information Value Date Recorded Sex Assigned at Not on file Legal Sex Male 12:11 AM MODEL TECHNICIAN Gender Identity Not on file Sexual [...] documented as of this encounter Care Teams Document Coordinator Relationship Specialty Start Date End Date Collin John MD [address] [address] PCP - General 07/13/16 02/24/20 Tika Araujo MD PCP - General Nurse Practitioner 03/27/20 Tika Araujo MD PCP - General 02/25/20 03/26/20 Americo Mcneil MD [address] [facility] [id number] [place] [address] PCP - Home Infusion Attending Infectious Diseases 10/15/24 Marietta Carroll, RN Registered Nurse Junior Legal Secretary 10/31/17 03/20/19 Suresh Verma MD Document Coordinator Transplant 09/16/18 Pao Allen, RN VAD Coordinator Transplant 03/20/19 Emmy Alicea Primary Planetarium Technician Transplant 08/14/24 Korey Warren, [facility] Pharmacist Pharmacy 10/23/24 documented as of this encounter
--- OUTSIDE RECORDS SUMMARY | 2024-12-09 02:08 | XMS_ITS ---
Author Organization [facility] Virtual Care Address [facility] [place] [address] Phone Care Team Providers Care Blanker Press Operator Name Role Phone Suresh Verma MD Unavailable [phone] Pao Allen RN Unavailable [phone] Tiak Araujo MD Primary Care Provider [phone] Emmy Alicea Unavailable Unavailable Americo Mcneil MD Unavailable [phone] Korey Warren [facility] Unavailable Unavail able Active Problems Patient Care [...] bid Assessment & Plan (05/27/2024 2:51 AM PHYSICAL CHEMISTRY TEACHER): -Home regimen: Entresto, coreg and imdur. -hold these iso orthostasis; re-introduce as tolerated Orthostasis 05/27/2024 Assessment & Plan (05/27/2024 5:39 AM PHYSICAL CHEMISTRY TEACHER): Presented with orthostatic symptoms while at home [...] 05/27/2024 Assessment & Plan (06/05/2024 11:44 AM PHYSICAL CHEMISTRY TEACHER): Admitted with BRBPR and near syncope, Hgb [...] sigmoidoscopy. Assessment & Plan (06/04/2024 11:42 AM PHYSICAL CHEMISTRY TEACHER): Admitted with BRBPR and near syncope, Hgb [...] sigmoidoscopy. Assessment & Plan (06/03/2024 8:04 AM PHYSICAL CHEMISTRY TEACHER): Admitted with BRBPR and near syncope, Hgb [...] sigmoidoscopy. Assessment & Plan (06/01/2024 11:39 AM PHYSICAL CHEMISTRY TEACHER): Admitted with BRBPR and near syncope, Hgb [...] sigmoidoscopy. Assessment & Plan (05/31/2024 9:25 AM PHYSICAL CHEMISTRY TEACHER): Admitted with BRBPR and near syncope, Hgb [...] CBCs Assessment & Plan (05/27/2024 12:05 PM PHYSICAL CHEMISTRY TEACHER): C/O BRBPR admitted with near syncope, admit Hgb 11.6, INR 2.4 -serial CBC -BID PPI -guaiac stools -hold ASA and warfarin pending Hgb trend -consider GI consult when INR down Assessment & Plan (05/27/2024 5:33 AM PHYSICAL CHEMISTRY TEACHER): After admission; overnight patient had episode of [...] inpatient Assessment & Plan (06/05/2024 11:44 AM PHYSICAL CHEMISTRY TEACHER): Home regimen: Lantus 30units nightly and Lispro SSI -HgbA1c 6.8 -BG currently controlled -Continue dose reduced Lantus 26 units nightly, Lispro 6 units TID with meals + SSI -Carb consistent diet -Accuchecks Assessment & Plan (06/04/2024 11:41 AM PHYSICAL CHEMISTRY TEACHER): Home regimen: Lantus 30units nightly and Lispro SSI -HgbA1c 6.8 -BG currently controlled -Continue dose reduced Lantus 26 units nightly, Lispro 6 units TID with meals + SSI -Carb consistent diet -Accuchecks Assessment & Plan (06/03/2024 8:03 AM PHYSICAL CHEMISTRY TEACHER): Home regimen: Lantus 30units nightly and Lispro SSI -HgbA1c 6.8 -BG currently controlled -Continue dose reduced Lantus 26 units nightly, Lispro 6 units TID with meals + SSI -Carb consistent diet -Accuchecks Assessment & Plan (06/01/2024 11:40 AM PHYSICAL CHEMISTRY TEACHER): Home regimen: Lantus 30units nightly and Lispro SSI -HgbA1c 6.8 -BG currently controlled -Continue dose reduced Lantus 26 units nightly, Lispro 6 units TID with meals + SSI -Carb consistent diet -Accuchecks Assessment & Plan (05/31/2024 9:30 AM PHYSICAL CHEMISTRY TEACHER): Home regimen: Lantus 30units nightly and Lispro SSI -HgbA1c 6.8 -BG currently controlled -Continue dose reduced Lantus 26 units nightly, Lispro 6 units TID with meals + SSI -Carb consistent diet -Accuchecks Assessment & Plan (05/27/2024 9:58 AM PHYSICAL CHEMISTRY TEACHER): Home regimen includes lantus 30 IU nightly and lispro SSI HgbA1c 6.8 -dose reduce lantus, add meal time lispro insulin Hypomagnesemia 05/27/2024 Assessment & Plan (06/03/2024 8:04 AM PHYSICAL CHEMISTRY TEACHER): S/p IV repletion this admission, continue to check and treat as needed Assessment & Plan (05/27/2024 12:04 PM PHYSICAL CHEMISTRY TEACHER): Mg 1.3 -replete with PO and IV -recheck tomorrow History of left ventricular assist device (LVAD) 05/26/2024 Assessment & Plan (06/05/2024 11:44 AM PHYSICAL CHEMISTRY TEACHER): 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) admitted with near [...] weights Assessment & Plan (06/04/2024 11:42 AM PHYSICAL CHEMISTRY TEACHER): 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) admitted with near [...] weights Assessment & Plan (06/03/2024 8:04 AM PHYSICAL CHEMISTRY TEACHER): 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) admitted with near [...] weights Assessment & Plan (06/01/2024 11:30 AM PHYSICAL CHEMISTRY TEACHER): 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) admitted with near [...] weights Assessment & Plan (05/31/2024 9:45 AM PHYSICAL CHEMISTRY TEACHER): 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 Assessment & Plan (04/18/2024 1:51 PM PHYSICAL CHEMISTRY TEACHER): RUQ/ Right flank pain associated with nausea [...] control. Assessment & Plan (04/18/2024 1:38 AM PHYSICAL CHEMISTRY TEACHER): RUQ/ Right flank pain associated with nausea [...] 04/17/2024 Assessment & Plan (04/19/2024 12:38 PM PHYSICAL CHEMISTRY TEACHER): - have been progressively increasing lately - [...] desensitization. Assessment & Plan (04/18/2024 1:40 PM PHYSICAL CHEMISTRY TEACHER): - have been progressively increasing lately - [...] recs. 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 Assessment & Plan (04/01/2023 12:48 [...] 08/28/2021 Assessment & Plan (05/27/2024 2:46 AM PHYSICAL CHEMISTRY TEACHER): Improving from prior admission when minocycline switched [...] CPAP Assessment & Plan (06/05/2024 11:46 AM PHYSICAL CHEMISTRY TEACHER): -Nightly CPAP with home unit Assessment & Plan (06/04/2024 11:43 AM PHYSICAL CHEMISTRY TEACHER): -Nightly CPAP with home unit Assessment & Plan (06/03/2024 8:05 AM PHYSICAL CHEMISTRY TEACHER): Nightly CPAP with home unit Assessment & Plan (06/01/2024 11:40 AM PHYSICAL CHEMISTRY TEACHER): Nightly CPAP with home unit Assessment & Plan (05/29/2024 11:33 AM PHYSICAL CHEMISTRY TEACHER): Nightly CPAP with home unit Assessment & Plan (05/27/2024 9:50 AM PHYSICAL CHEMISTRY TEACHER): Nightly CPAP with home unit Assessment & Plan (05/27/2024 1:34 AM PHYSICAL CHEMISTRY TEACHER): - continue CPAP Assessment & Plan (04/19/2024 12:49 PM PHYSICAL CHEMISTRY TEACHER): Continue with CPAP Assessment & Plan (04/18/2024 1:45 PM PHYSICAL CHEMISTRY TEACHER): Continue with CPAP Assessment & Plan (04/18/2024 2:03 AM PHYSICAL CHEMISTRY TEACHER): CW CPAP Assessment & Plan (04/02/2023 8:42 [...] 10/22/2020 Assessment & Plan (06/05/2024 11:46 AM PHYSICAL CHEMISTRY TEACHER): -BMI 34, encourage weight loss Assessment & Plan (06/03/2024 8:05 AM PHYSICAL CHEMISTRY TEACHER): BMI 34, encouraged weight loss Assessment & Plan (05/27/2024 7:50 AM PHYSICAL CHEMISTRY TEACHER): BMI 34, encouraged weight loss Assessment & [...] 06/14/2018 Assessment & Plan (06/05/2024 11:42 AM PHYSICAL CHEMISTRY TEACHER): Pt c/o chest pain x 3 days relieved with SL nitro. -hx CABG and PCI in past -slightly elevated troponin, continue to trend -EKG unremarkable -increase imdur to 60mg daily -continue coreg, hold ASA 2/2 GIB, previously discontinued statin 2/2 elevated LFT -denies CP since admit Assessment & Plan (06/04/2024 11:36 AM PHYSICAL CHEMISTRY TEACHER): Pt c/o chest pain x 3 days relieved with SL nitro. -hx CABG and PCI in past -slightly elevated troponin, continue to trend -EKG unremarkable -increase imdur to 60mg daily -continue coreg, hold ASA 2/2 GIB, previously discontinued statin 2/2 elevated LFT -denies CP since admit Assessment & Plan (06/03/2024 8:00 AM PHYSICAL CHEMISTRY TEACHER): Pt c/o chest pain x 3 days relieved with SL nitro. -hx CABG and PCI in past -slightly elevated troponin, continue to trend -EKG unremarkable -increase imdur to 60mg daily -continue coreg, hold ASA 2/2 GIB, previously discontinued statin 2/2 elevated LFT -denies CP since admit Assessment & Plan (05/27/2024 12:21 PM PHYSICAL CHEMISTRY TEACHER): Pt c/o chest pain x 3 days [...] diuretics Assessment & Plan (08/02/2019 9:43 AM PHYSICAL CHEMISTRY TEACHER): -chronic systolic end stage heart failure -exam [...] -tele Assessment & Plan (08/01/2019 12:24 PM PHYSICAL CHEMISTRY TEACHER): -chronic systolic end stage heart failure -exam appears euvolemic and LVAD appears to be functioning appropriately -suspect that presenting CP 2/2 poorly controlled BP -continue asa/losartan and coreg/nitrate doses increased -add home torsemide for improved BP control -2D echo pending -continue low sodium diet -tele Assessment & Plan (07/31/2019 4:15 PM PHYSICAL CHEMISTRY TEACHER): Appears euvolemic on exam Admitted with elevated [...] therapy on April 12, 2015 for underlying [place] [employer] class IV heart failure Assessment & Plan (08/31/2024 8:44 AM CDT): ICM with HFrEF S/P DIABETES NURSE-D and DT-HM3 (03/2015) admitted with BRBPR. 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 Hemodynamically stable, appears euvolemic and denies VAD alarms. INR 2.24 on admission. 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 Hemodynamically stable, appears euvolemic and denies VAD alarms. INR 2.24 on admission. -hold warfarin for GIB -cont entresto, coreg, imdur -cont suppressive abx for hx driveline infection -tele monitoring Assessment & Plan (08/24/2024 10:44 AM CDT): ICM with HFrEF S/P DIABETES NURSE-D and DT-HM3 (03/2015) admitted with BRBPR. Hemodynamically [...] 2:53 AM CDT): ICM with HFrEF S/P DIABETES NURSE-D and DT-HM3 (03/2015) admitted with BRBPR. Hemodynamically stable, appears euvolemic and denies VAD alarms. INR 2.24 on admission. 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 -tele monitoring Assessment & Plan (04/19/2024 12:46 PM PHYSICAL CHEMISTRY TEACHER): ICM with HFrEF S/P DIABETES NURSE-D and DT-HM3 (03/2015) Hx of recurrent drive [...] diet Assessment & Plan (04/18/2024 1:45 PM PHYSICAL CHEMISTRY TEACHER): ICM with HFrEF S/P DIABETES NURSE-D and DT-HM3 (03/2015) Hx of recurrent drive [...] diet Assessment & Plan (04/18/2024 3:54 AM PHYSICAL CHEMISTRY TEACHER): ICM with HFrEF S/P DIABETES NURSE-D and DT-HM3 (03/2015) Hx of recurrent drive [...] BP not improved with IVF will need MAINTENANCE OF WAY CLERK -strict I/Os, daily standing weights -tele Assessment [...] Assessment & Plan (09/02/2021 12:01 PM CDT): [facility] March 2015 -LVAD functioning appropriately, no alarms -acute on chronic systolic HF with VENU and elevated LFTs -treated with IV lasix with improvement -transitioned back to home torsemide -INR 1.8, will increase warfarin to 6mg daily except Sun/Mon 5mg (home regimen) -continue home carvedilol, hydralazine, isordil, ASA, atorvastatin -I&Os, daily weights, telemetry Assessment & Plan (09/01/2021 9:21 AM CDT): [facility] March 2015 -LVAD functioning appropriately, no alarms -acute on chronic systolic HF with VENU and elevated LFTs -treated with IV lasix with improvement -transition back to home torsemide -INR down to 1.7; will give extra dose warfarin this morning -continue warfarin -continue home carvedilol, hydralazine, isordil, ASA, atorvastatin -I&Os, daily weights, telemetry Assessment & Plan (08/31/2021 3:38 PM CDT): [facility] March 2015 -LVAD functioning appropriately, no alarms [...] Assessment & Plan (08/28/2021 1:53 PM CDT): [facility] March 2015 -LVAD functioning appropriately, no alarms -appears near euvolemic on exam -INR supratherapeutic, hold warfarin tonight -continue home carvedilol, hydralazine, isordil, ASA, atorvastatin -I&Os, daily weights, telemetry Assessment & Plan (08/27/2021 11:55 AM CDT): [facility] March 2015 LVAD functioning appropriately, no alarms -appears near euvolemic on exam -resume home torsemide 20mg daily -INR therapeutic at 2.8 (goal 2-3) -continue home warfarin regimen: 4mg SMWF, 5mg TTS -continue home carvedilol, hydralazine, isordil -continue home ASA 325mg daily, atorvastatin -I&Os, daily weights, telemetry -complication management as above Assessment & Plan (08/26/2021 11:32 AM CDT): [facility] March 2015 LVAD functioning appropriately, no alarms -appears euvolemic on exam -hold home diuretics for now (torsemide 20mg daily) -INR therapeutic at 2.5 (goal 2-3) -continue home warfarin regimen: 4mg SMWF, 5mg TTS -continue home carvedilol, hydralazine, isordil -continue home ASA 325mg daily, atorvastatin -I&Os, daily weights, telemetry -complication management as above Assessment & Plan (08/25/2021 10:29 AM CDT): [facility] March 2015 LVAD functioning appropriately, no alarms [...] 2-3) Increase Warfarin to 7mg Monitor on manager clinical research I/Os, daily weights Assessment & Plan (10/23/2020 [...] 325 Assessment & Plan (07/31/2019 4:13 PM PHYSICAL CHEMISTRY TEACHER): Patient was implanted in March 2015 as [...] INR checks. Cardiac resynchronization th erapy defibrillator (DIABETES NURSE-D) in place 12/30/2017 Overview (12/21/2021): Reached EoL in 2018 - elected NOT to generator change VT (ventricular tachycardia) ([facility]) 8 Overview (12/21/2021): Occurring before LVAD implantation - none since DIABETES NURSE-D device (Metronic-- implanted prior to lvad. Pt is not PPM dependent and decision made to not proceed with generator change in December 2017) Assessment & Plan (09/11/2021 10:26 AM CDT): -NSVT on telemetry -Monitor and replete electrolytes -telemetry Assessment & Plan (09/10/2021 9:31 AM CDT): nsvt noted on manager clinical research for increase in arrythmia Keep potassium above 4 and magnesium around 2 CTM Assessment & Plan (08/02/2019 9:55 AM PHYSICAL CHEMISTRY TEACHER): -DIABETES NURSE-D device (Metronic-- implanted prior to lvad. Pt is not PPM dependent and decision made to not proceed with generator change in December 2017) -continue tele Assessment & Plan (08/01/2019 12:21 PM PHYSICAL CHEMISTRY TEACHER): -DIABETES NURSE-D device (Metronic-- implanted prior to lvad. Pt is not PPM dependent and decision made to not proceed with generator change in December 2017) -continue tele Assessment & Plan (07/31/2019 4:21 PM PHYSICAL CHEMISTRY TEACHER): patient had DIABETES NURSE-D device metronic implanted prior to lvad Is not pacemaker depenent Saw Dr. ortega from -EP clinic 12/2017 and discussion was not to proceed with generator change and patient currently has lvad And chances of arresting from life threating arrhythmia with lvad was low medical terminologist current use of anticoagulant therapy 0 06/04/2015 [...] miralax Assessment & Plan (06/05/2024 11:43 AM PHYSICAL CHEMISTRY TEACHER): -CT scan has increase stool burden with [...] today Assessment & Plan (06/04/2024 11:40 AM PHYSICAL CHEMISTRY TEACHER): -CT scan has increase stool burden with [...] today Assessment & Plan (06/03/2024 9:55 AM PHYSICAL CHEMISTRY TEACHER): -CT scan has increase stool burden with [...] movements. Assessment & Plan (06/01/2024 11:39 AM PHYSICAL CHEMISTRY TEACHER): -CT scan has increase stool burden with stool ball in sigmoid colon -S/p enema for preparation for flex sigmoidoscopy performed on 05/29 -Patient has had several BMs since but none yet today -Continue Miralax BID, senna-docusate BID and dulcolax suppository PRN -Add lactulose today Assessment & Plan (05/31/2024 9:45 AM PHYSICAL CHEMISTRY TEACHER): -CT scan has increase stool burden with stool ball in sigmoid colon -S/p enema for preparation for flex sigmoidoscopy performed on 05/29 -Patient has had several BMs including this morning -Continue Miralax, senna-docusate and dulcolax suppository PRN Assessment & Plan (05/27/2024 2:45 AM PHYSICAL CHEMISTRY TEACHER): - had large BM in ED - [...] baseline Assessment & Plan (06/05/2024 11:46 AM PHYSICAL CHEMISTRY TEACHER): -Creatinine at baseline -Avoid nephrotoxins, renally dose meds as appropriate -Avoid hypotension -BMP daily Assessment & Plan (06/04/2024 11:44 AM PHYSICAL CHEMISTRY TEACHER): -Creatinine at baseline -Avoid nephrotoxins, renally dose meds as appropriate -Avoid hypotension -BMP daily Assessment & Plan (06/03/2024 8:05 AM PHYSICAL CHEMISTRY TEACHER): Creatinine at baseline Assessment & Plan (06/01/2024 11:40 AM PHYSICAL CHEMISTRY TEACHER): Creatinine at baseline Assessment & Plan (05/29/2024 11:32 AM PHYSICAL CHEMISTRY TEACHER): Creatinine at baseline Assessment & Plan (05/27/2024 7:49 AM PHYSICAL CHEMISTRY TEACHER): Creatinine at baseline Assessment & Plan (04/19/2024 12:49 PM PHYSICAL CHEMISTRY TEACHER): Cr at baseline CTM. Assessment & Plan (04/18/2024 1:23 PM PHYSICAL CHEMISTRY TEACHER): Cr at baseline CTM. Assessment & Plan (04/18/2024 1:46 AM PHYSICAL CHEMISTRY TEACHER): Cr at baseline CTM. Assessment & Plan [...] follow Assessment & Plan (08/02/2019 9:51 AM PHYSICAL CHEMISTRY TEACHER): Stage 3 CKD -Cr remains stable and in baseline range Assessment & Plan (08/01/2019 12:25 PM PHYSICAL CHEMISTRY TEACHER): Stage 3 CKD -Cr remains stable and in baseline range Assessment & Plan (07/31/2019 4:15 PM PHYSICAL CHEMISTRY TEACHER): History ckd stage 3 . Baseline creatine [...] PPI Assessment & Plan (05/27/2024 5:42 AM PHYSICAL CHEMISTRY TEACHER): - IV ppi Assessment & Plan (04/19/2024 12:39 PM PHYSICAL CHEMISTRY TEACHER): Continue with pantoprazole. Assessment & Plan (04/18/2024 1:41 PM PHYSICAL CHEMISTRY TEACHER): Continue with pantoprazole. Assessment & Plan (04/18/2024 1:39 AM PHYSICAL CHEMISTRY TEACHER): CW pantoprazole. Assessment & Plan (03/20/2022 1:03 [...] PPI Assessment & Plan (08/02/2019 9:45 AM PHYSICAL CHEMISTRY TEACHER): -+ dyspepsia -continue PPI Assessment & Plan (08/01/2019 10:33 AM PHYSICAL CHEMISTRY TEACHER): -+ dyspepsia -continue PPI Assessment & Plan (07/31/2019 4:00 PM PHYSICAL CHEMISTRY TEACHER): Increase home dose PPI to bid to [...] 8:23 AM CDT): -H/H stable from prior [facility] reading and pt denies bleeding -Home iron supplementation held for now -continue to follow Assessment & Plan (07/31/2019 4:09 PM PHYSICAL CHEMISTRY TEACHER): History of anemia - currently blood counts on admission look good Will continue to follow . Hyperlipidemia 01/07/2014 Assessment & Plan (04/19/2024 12:39 PM PHYSICAL CHEMISTRY TEACHER): Holding statin for elevated liver enzymes. Assessment & Plan (04/18/2024 1:16 PM PHYSICAL CHEMISTRY TEACHER): Holding statin for elevated liver enzymes. Assessment & Plan (04/18/2024 1:42 AM PHYSICAL CHEMISTRY TEACHER): Holding statin for elevated liver enzymes. Assessment [...] 08/15/20 Assessment & Plan (07/31/2019 4:10 PM PHYSICAL CHEMISTRY TEACHER): hi reports being on stelera injections Peripheral vascular disease 01/07/2014 Overview (09/03/2016): PVD Hypertension 01/07/2014 Assessment & Plan (04/19/2024 12:41 PM PHYSICAL CHEMISTRY TEACHER): -Continue with Entresto, Hydralazine, coreg and imdur. -Monitor BP and adjust accordingly. -Orthostatic BP as patient mentioned having occasional lightheadedness while standing. -encourage adequate rehydration, safety precautions while changing positions, compression stockings. May consider med readjustment if symptoms persist Assessment & Plan (04/18/2024 1:42 PM PHYSICAL CHEMISTRY TEACHER): -Continue with Entresto, Hydralazine, coreg and imdur. -Monitor BP and adjust accordingly. -Orthostatic BP as patient mentioned having occasional lightheadedness while standing. Assessment & Plan (04/18/2024 3:57 AM PHYSICAL CHEMISTRY TEACHER): CW Entresto, Hydralazine, coreg and imdur. Monitor [...] needed Assessment & Plan (08/02/2019 9:41 AM PHYSICAL CHEMISTRY TEACHER): -pt presented with poorly controlled hypertension -systolic BP remains elevated despite increased nitrates and coreg doses -consider addition of low dose norvasc to regimen -continue losartan and torsemide to regimen Assessment & Plan (08/01/2019 12:23 PM PHYSICAL CHEMISTRY TEACHER): -pt presented with poorly controlled hypertension -nitrates and coreg increased--continue to follow and titrate as needed -continue losartan and add torsemide to regimen Assessment & Plan (07/31/2019 3:57 PM PHYSICAL CHEMISTRY TEACHER): Elevated blood pressures at home and recorded [...] information found. Other Current Plans [facility] IM ONLY & IV MAINTENANCE THERAPY PLAN* [...] 06/02/2024 Assessment & Plan (05/27/2024 2:07 AM PHYSICAL CHEMISTRY TEACHER): - flomax; low threshold to hold if recurrent hypotension Assessment & Plan (04/19/2024 12:39 PM PHYSICAL CHEMISTRY TEACHER): tamsulosin. Assessment & Plan (04/18/2024 1:13 PM PHYSICAL CHEMISTRY TEACHER): tamsulosin. Assessment & Plan (04/18/2024 1:39 AM PHYSICAL CHEMISTRY TEACHER): tamsulosin. Assessment & Plan (04/02/2023 8:42 AM [...] SSI Assessment & Plan (05/27/2024 2:51 AM PHYSICAL CHEMISTRY TEACHER): Home regimen includes lantus 30 IU nightly and lispro SSI - continue with basal (dose reduced to 17 units during prior admission) and SSI only (he states he takes 1-6 of lispro with meals) - add bolus TID if needed Assessment & Plan (04/19/2024 12:50 PM PHYSICAL CHEMISTRY TEACHER): Home regimen includes lantus 30 IU nightly and lispro (6-20 IU) (per patient he takes 18 international units with most of the meals) - continue with basal bolus (dose reduced to 17 units) and prandial (dose reduced to 6 units with meals) regimen in additional to SSI - Monitor blood sugar and adjust insuline as needed. Assessment & Plan (04/18/2024 1:55 PM PHYSICAL CHEMISTRY TEACHER): Home regimen includes lantus 30 IU nightly and lispro (6-20 IU) (per patient he takes 18 international units with most of the meals) - continue with basal bolus (dose reduced to 17 units) and prandial (dose reduced to 6 units with meals) regimen in additional to SSI - Monitor blood sugar and adjust insuline as needed. Assessment & Plan (04/18/2024 1:42 AM PHYSICAL CHEMISTRY TEACHER): Home regimen includes lantus 30 IU nightly [...] SSI Assessment & Plan (08/02/2019 9:45 AM PHYSICAL CHEMISTRY TEACHER): -HgA1C well controlled -continue lantus and SSI Assessment & Plan (08/01/2019 10:36 AM PHYSICAL CHEMISTRY TEACHER): -HgA1C well controlled -continue lantus and SSI Assessment & Plan (07/31/2019 3:54 PM PHYSICAL CHEMISTRY TEACHER): Recheck hemglobin a1c - last one recored in september 2016- 7.5 Patient states hemglobin a1c controlled as outpatient Continue lantus 30 units at [facility] and SSI CAD in [place] artery 01/07/2014 025 Overview (02/23/2021): Coronary artery disease with history of coronary artery bypass graft with a MARIN to the LAD and free radial graft to obtuse marginal with multiple subsequent PCI to the right coronary artery. Assessment & Plan (05/27/2024 5:29 AM PHYSICAL CHEMISTRY TEACHER): SP CABG (MARIN-LAD, free radial graft-OM ) S/p PCI to RCA - hold asa, hold coreg - statins held previously due to prior abnormal LFTs - continue trop trend to peak; currently chest pain free though he did take nitro in last 2-3 days Assessment & Plan (04/19/2024 12:39 PM PHYSICAL CHEMISTRY TEACHER): SP CABG -Asymptomatic. -Negative troponin. -continue with ASA and coreg. -holding statins d/t abnormal LFTs Assessment & Plan (04/18/2024 1:41 PM PHYSICAL CHEMISTRY TEACHER): SP CABG -Asymptomatic. -Negative troponin. -continue with ASA and coreg. Assessment & Plan (04/18/2024 1:43 AM PHYSICAL CHEMISTRY TEACHER): SP CABG Asymptomatic. Negative troponin. CW ASA, [...] carvedilol Assessment & Plan (07/31/2019 4:08 PM PHYSICAL CHEMISTRY TEACHER): Admitted with chest pain relieved in setting [...]
--- OUTSIDE RECORDS SUMMARY | 2024-12-09 02:08 | XMS_ITS | Encounter Summary ---
Author Organization [facility] Healthcare Address [address] [place] [address] Care Team Providers Care Flight Engineer Manager Name Role Phone Suresh Verma MD Unavailable [phone] Pao Allen RN Unavailable [phone] Tika Araujo MD Primary Care Provider [phone] Emmy Alicea Unavailable Unavailable Americo Mcneil MD Unavailable [phone] Korey Warren [facility] Unavailable Unavail able Encounter Details Date Type Department Care Team (Late st Contact Info) Description 09/28/2024 Telephone [facility] Home Care Services [address] [place] [address] Korey Warren [facility] Social History Tobacco Use Types Packs/Day Years Used Date Smoking Tobacco: Never Passive Smoke Exposure: Never Smokeless Tobacco: Never Alcohol Use Standard Drinks/Week Comments No 0 (1 standard drink = 0.6 oz pur e alcohol) [facility] Utilities Answer Date Recorded In [...] often do you attend chur ch or voodoo services? 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 Gender Identity Not on file Sexual Orientation [...] documented as of this encounter Care Teams Flight Engineer Manager Relationship Specialty Start Date End Date Tika Araujo MD PCP - General Nurse Practitioner 03/27/20 Americo Mcneil MD [id number] [place] [address] PCP - Home Infusion Attending Infectious Diseases 10/15/24 Suresh Verma MD Auto Body Repairer Transplant 09/16/18 Pao Allen, RN VAD Coordinator Transplant 03/20/19 Emmy Alicea Primary Senior Telecommunications Consultant Transplant 08/14/24 Korey Warren, [facility] Pharmacist Pharmacy 10/23/24 documented as of this encounter
--- OUTSIDE RECORDS SUMMARY | 2024-12-09 02:08 | XMS_ITS | Encounter Summary ---
Author Organization [facility] Address [address] [place] [address] Phone Care Team Providers Care Customer Development Representative Name Role Phone Collin John MD Primary Care Provider [phone] Mareitta Carroll RN Unavailable Jacque karthikble Suresh Verma MD Unavailable [phone] Pao Allen RN Unavailable Tika Araujo MD Primary Care Provider [phone] Tika Araujo MD Primary Care Provider [phone] Emmy Alicea Unavailable Unavailable Americo Mcneil MD Unavailable [phone] Korey Warren [facility] Unavailable Unavail able Encounter Details Date Type Department Care Team (Late st Contact Info) Description 08/03/2017 Orders Only [facility] CLINCONV Provider, MD Crys [address] [place] [address] Social History Tobacco Use Types Packs/Day Years Used Date Smoking Tobacco: Never Alcohol Use Standard Drinks/Week Comments No 0 (1 standard drink = 0.6 oz pur e alcohol) Sex and Gender Information Value Date Recorded Sex Assigned at Not on file Legal Sex Male 12:[address] [employer] Gender Identity Not on file Sexual Orientation [...] documented as of this encounter Care Teams Customer Development Representative Relationship Specialty Start Date End Date Collin John MD [address] [facility] [facility] [place] [address] PCP - General 07/13/16 02/24/20 Tika Araujo MD PCP - General Nurse Practitioner 03/27/20 Tika Araujo MD PCP - General 02/25/20 03/26/20 Americo Mcneil MD [address] [facility] [id number] [place] [address] PCP - Home Infusion Attending Infectious Diseases 10/15/24 Marietta Carroll, RN Registered Nurse Rental Coordinator 10/31/17 03/20/19 Suresh Verma MD Skatesman Transplant 09/16/18 Pao Allen, RN VAD Coordinator Transplant 03/20/19 Emmy Alicea Primary Silo Painter Transplant 08/14/24 Korey Warren, [facility] Pharmacist Pharmacy 10/23/24 documented as of this encounter
--- OUTSIDE RECORDS SUMMARY | 2024-12-09 02:08 | XMS_ITS | Encounter Summary ---
Author Organization [facility] Address [address] [place] [address] Phone Care Team Providers Care Music Worker Name Role Phone Collin John MD Primary Care Provider [phone] Prasanna Newton DO Primary Care Provider [phone] Marietta Carroll RN Unavailable Jacque Suresh Miller MD Unavailable [phone] Pao Allen RN Unavailable [phone] Tika Araujo MD Primary Care Provider [phone] Tika Araujo MD Primary Care Provider [phone] Emmy Alicea Unavailable Unavailable Americo Mcneil MD Unavailable [phone] Korey Warren [facility] Unavailable Unavail able Encounter Details Date Type Department Care Team (Late st Contact Info) Description 02/26/2016 Orders Only [facility] CLINCONV Provider, MD Crys [address] [place] [address] Social History Tobacco Use Types Packs/Day Years Used Date Smoking Tobacco: Never Alcohol Use Standard Drinks/Week Comments No 0 (1 standard drink = 0.6 oz pur e alcohol) Sex and Gender Information Value Date Recorded Sex Assigned at Not on file 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 Gender Identity Not on file Sexual [...] documented as of this encounter Care Teams Music Worker Relationship Specialty Start Date End Date Collin John MD [id number] [place] [address] PCP - General 07/13/16 02/24/20 Prasanna Newton DO [id number] [place] [address] PCP - General 06/07/06 07/12/16 Tika Araujo MD PCP - General Nurse Practitioner 03/27/20 Tika Araujo MD PCP - General 02/25/20 03/26/20 Americo Mcneil MD [address] [facility] [id number] [place] [address] PCP - Home Infusion Attending Infectious Diseases 10/15/24 Marietta Carroll, SANKET Registered Nurse Mold Capper 10/31/17 03/20/19 Suresh Verma MD Floorhand Transplant 09/16/18 Pao Allen, RN VAD Coordinator Transplant 03/20/19 Emmy Alicea Primary Fireproof Door Assembler Transplant 08/14/24 Korey Warren [facility] Pharmacist Pharmacy 10/23/24 documented as of this encounter
--- OUTSIDE RECORDS SUMMARY | 2024-12-09 02:08 | XMS_ITS | Encounter Summary ---
Author Organization [facility] Address [address] [place] [address] Phone Care Team Providers Care Transformer Tester Name Role Phone Suresh Verma MD Unavailable [phone] Pao Allen RN Unavailable [phone] Tika Araujo MD Primary Care Provider [phone] Emmy Alicea Unavailable Unavailable Americo Mcneil MD Unavailable [phone] Korey Warren [facility] Unavailable Unavail able Encounter Details Date Type Department Care Team (Late st Contact Info) Description 09/21/2024 Telephone [facility] Infectious Diseases [address] [place] [address] [address] [place] [address] Destinee Peraza RMA Social History Tobacco Use Types Packs/Day Years Used Date Smoking Tobacco: Never Passive Smoke Exposure: Never Smokeless Tobacco: Never Alcohol Use Standard Drinks/Week Comments No 0 (1 standard drink = 0.6 oz pur e alcohol) [facility] Utilities Answer Date Recorded In the past 12 months has [employer] electric, gas, oil, or water company threatened [...] How often do you attend chur or anabaptism services? More than 4 times per year 08/25/2024 Do you belong to any clubs o r organizations such as mormonism groups, unions, fraternal or athletic groups, or [...] place to sleep or slept in a group home (including now)? Patient refused 03/23/2023 Housing Stability [...] time in the past 12 m [facility], were you homeless or living in a group home (including now)? No 08/25/2024 Personal Safety Answer Date Recorded Have you ever been in or are you currently in a harmful physical or emotional relationship or is someone making you feel afraid or unsafe? Denies 08/23/2024 Sex and Gender Information Value Date Recorded Sex Assigned at Not on file Legal Sex Male 12:11 AM [employer] Gender Identity Not on file Sexual Orientation [...] up for the past 2wks. 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 documented as of this encounter Care Teams Transformer Tester Relationship Specialty Start Date End Date Tika Araujo MD PCP - General Nurse Practitioner 03/27/20 Americo Mcneil MD [address] [facility] [id number] [place] [address] PCP - Home Infusion Attending Infectious Diseases 10/15/24 Suresh Verma MD Regional Marketing Manager Transplant 09/16/18 Pao Allen, RN VAD Coordinator Transplant 03/20/19 Emmy Alicea Primary Dater Assembler Transplant 08/14/24 Korey Warren [facility] Pharmacist Pharmacy 10/23/24 documented as of this encounter
--- OUTSIDE RECORDS SUMMARY | 2024-12-09 02:08 | XMS_ITS | Clinical Summary ---
Author Organization [facility] Virtual Care Address [address] [place] [id number] Phone Care Team Providers Care [employer] Name Role Phone Suresh Verma MD Unavailable [phone] Pao Allen RN Unavailable [phone] Tika rAaujo MD Primary Care Provider [phone] Emmy Alicea Unavailable Unavailable Americo Mcneil MD Unavailable [phone] Korey Warren [facility] Unavailable Unavail able Allergies Active Allergy Reactions [...] mg total) by mouth daily Active BASAGLAR JUVENTINOIKPEN U-100 INSULIN 100 unit/mL (3 mL) insulin [...] INFUSION WITH DEXTROSE FLUSH ONLY 225 mL 12/08/19 25 4:58 PM CDT 2025 Active sodium chloride 0.9% flush syringeIndicati ons:Bacterial intestinal infection,Infec tion and inflammatory reaction due to cardiac device, implant, and graft, sequela,Presenc e of heart assist device (HCC) Infuse 10 mL IV as needed for line care 64523 mL 2025 Active heparin 100 unit/mL syringeIndicati ons:Bacterial intestinal infection,Infec tion and inflammatory reaction due to cardiac device, implant, and graft, sequela,Presenc e of heart assist device (HCC) Infuse 5 mL (500 Units total) IV as needed (line care) 82935 mL 2025 Active dextrose 5 % in water (dextrose 5% water) 5% flushIndication s:Bacterial intestinal infection,Infec tion and inflammatory reaction due to cardiac device, implant, and graft, sequela,Presenc e of heart assist device (HCC) Infuse 10 mL IV as needed (before and after Dalbavancin infusion) NOTE: Dalbavancin is not compatible with normal saline. 20 mL 11 12/08/19 25 4:58 PM CDT 2025 Active dextrose 5% solutionIndicat ions:Bacterial intestinal [...] 1500 mL 12/08/19 25 4:58 PM CDT 025 2025 Active warfarin (COUMADIN) 3 mg tabletIndicatio ns:Left Ventricular Assist Device 4 mg tues/thurs; 2 mg ROW 025 Active warfarin (COUMADIN) 4 mg tabletIndicatio ns:Left Ventricular Assist Device 4 mg tues/thurs; 2 mg ROW 025 Active levoFLOXacin (LEVAQUIN) 750 mg tabletIndicatio ns:Other (complete free text reason below),chronic drive line infection, on suppressive therapy Take 1 tablet (750 mg total) by mouth daily 30 tablet 025 2025 Active ustekinumab (STELARA) injection Inject 0.5 [...] 4 mg daily; 2 mg tue/tue 025 2024 Discontinued warfarin (COUMADIN) 4 mg [...] reports no bloody stools since 08/27 am, 4/ had a smear of stool on his [...] reports no bloody stools since 08/27 am, 4/ had a smear of stool on his [...] bid Assessment & Plan (05/27/2024 2:51 AM WATERWORKS PUMP STATION OPERATOR): -Home regimen: Entresto, coreg and imdur. -hold these iso orthostasis; re-introduce as tolerated Orthostasis 05/27/2024 Assessment & Plan (05/27/2024 5:39 AM WATERWORKS PUMP STATION OPERATOR): Presented with orthostatic symptoms while at home [...] 05/27/2024 Assessment & Plan (06/05/2024 11:44 AM WATERWORKS PUMP STATION OPERATOR): Admitted with BRBPR and near syncope, Hgb [...] sigmoidoscopy. Assessment & Plan (06/04/2024 11:42 AM WATERWORKS PUMP STATION OPERATOR): Admitted with BRBPR and near syncope, Hgb [...] sigmoidoscopy. Assessment & Plan (06/03/2024 8:04 AM WATERWORKS PUMP STATION OPERATOR): Admitted with BRBPR and near syncope, Hgb [...] sigmoidoscopy. Assessment & Plan (06/01/2024 11:39 AM WATERWORKS PUMP STATION OPERATOR): Admitted with BRBPR and near syncope, Hgb [...] sigmoidoscopy. Assessment & Plan (05/31/2024 9:25 AM WATERWORKS PUMP STATION OPERATOR): Admitted with BRBPR and near syncope, Hgb [...] CBCs Assessment & Plan (05/27/2024 12:05 PM WATERWORKS PUMP STATION OPERATOR): C/O BRBPR admitted with near syncope, admit Hgb 11.6, INR 2.4 -serial CBC -BID PPI -guaiac stools -hold ASA and warfarin pending Hgb trend -consider GI consult when INR down Assessment & Plan (05/27/2024 5:33 AM WATERWORKS PUMP STATION OPERATOR): After admission; overnight patient had episode of [...] inpatient Assessment & Plan (06/05/2024 11:44 AM WATERWORKS PUMP STATION OPERATOR): Home regimen: Lantus 30units nightly and Lispro SSI -HgbA1c 6.8 -BG currently controlled -Continue dose reduced Lantus 26 units nightly, Lispro 6 units TID with meals + SSI -Carb consistent diet -Accuchecks Assessment & Plan (06/04/2024 11:41 AM WATERWORKS PUMP STATION OPERATOR): Home regimen: Lantus 30units nightly and Lispro SSI -HgbA1c 6.8 -BG currently controlled -Continue dose reduced Lantus 26 units nightly, Lispro 6 units TID with meals + SSI -Carb consistent diet -Accuchecks Assessment & Plan (06/03/2024 8:03 AM WATERWORKS PUMP STATION OPERATOR): Home regimen: Lantus 30units nightly and Lispro SSI -HgbA1c 6.8 -BG currently controlled -Continue dose reduced Lantus 26 units nightly, Lispro 6 units TID with meals + SSI -Carb consistent diet -Accuchecks Assessment & Plan (06/01/2024 11:40 AM WATERWORKS PUMP STATION OPERATOR): Home regimen: Lantus 30units nightly and Lispro SSI -HgbA1c 6.8 -BG currently controlled -Continue dose reduced Lantus 26 units nightly, Lispro 6 units TID with meals + SSI -Carb consistent diet -Accuchecks Assessment & Plan (05/31/2024 9:30 AM WATERWORKS PUMP STATION OPERATOR): Home regimen: Lantus 30units nightly and Lispro SSI -HgbA1c 6.8 -BG currently controlled -Continue dose reduced Lantus 26 units nightly, Lispro 6 units TID with meals + SSI -Carb consistent diet -Accuchecks Assessment & Plan (05/27/2024 9:58 AM WATERWORKS PUMP STATION OPERATOR): Home regimen includes lantus 30 IU nightly and lispro SSI HgbA1c 6.8 -dose reduce lantus, add meal time lispro insulin Hypomagnesemia 05/27/2024 Assessment & Plan (06/03/2024 8:04 AM WATERWORKS PUMP STATION OPERATOR): S/p IV repletion this admission, continue to check and treat as needed Assessment & Plan (05/27/2024 12:04 PM WATERWORKS PUMP STATION OPERATOR): Mg 1.3 -replete with PO and IV -recheck tomorrow History of left ventricular assist device (LVAD) 05/26/2024 Assessment & Plan (06/05/2024 11:44 AM WATERWORKS PUMP STATION OPERATOR): 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) admitted with near [...] weights Assessment & Plan (06/04/2024 11:42 AM WATERWORKS PUMP STATION OPERATOR): 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) admitted with near [...] weights Assessment & Plan (06/03/2024 8:04 AM WATERWORKS PUMP STATION OPERATOR): 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) admitted with near [...] admission and GI bleeding - resumed entresto /4 -Accurate I&O, monitor on telemetry, daily weights Assessment & Plan (06/01/2024 11:30 AM WATERWORKS PUMP STATION OPERATOR): 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) admitted with near [...] weights Assessment & Plan (05/31/2024 9:45 AM WATERWORKS PUMP STATION OPERATOR): 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 Assessment & Plan (04/18/2024 1:51 PM WATERWORKS PUMP STATION OPERATOR): RUQ/ Right flank pain associated with nausea [...] control. Assessment & Plan (04/18/2024 1:38 AM WATERWORKS PUMP STATION OPERATOR): RUQ/ Right flank pain associated with nausea [...] 04/17/2024 Assessment & Plan (04/19/2024 12:38 PM WATERWORKS PUMP STATION OPERATOR): - have been progressively increasing lately - [...] desensitization. Assessment & Plan (04/18/2024 1:40 PM WATERWORKS PUMP STATION OPERATOR): - have been progressively increasing lately - [...] recs. 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 Assessment & Plan (04/01/2023 12:48 PM CDT): [...] 08/28/2021 Assessment & Plan (05/27/2024 2:46 AM WATERWORKS PUMP STATION OPERATOR): Improving from prior admission when minocycline switched [...] CPAP Assessment & Plan (06/05/2024 11:46 AM WATERWORKS PUMP STATION OPERATOR): -Nightly CPAP with home unit Assessment & Plan (06/04/2024 11:43 AM WATERWORKS PUMP STATION OPERATOR): -Nightly CPAP with home unit Assessment & Plan (06/03/2024 8:05 AM WATERWORKS PUMP STATION OPERATOR): Nightly CPAP with home unit Assessment & Plan (06/01/2024 11:40 AM WATERWORKS PUMP STATION OPERATOR): Nightly CPAP with home unit Assessment & Plan (05/29/2024 11:33 AM WATERWORKS PUMP STATION OPERATOR): Nightly CPAP with home unit Assessment & Plan (05/27/2024 9:50 AM WATERWORKS PUMP STATION OPERATOR): Nightly CPAP with home unit Assessment & Plan (05/27/2024 1:34 AM WATERWORKS PUMP STATION OPERATOR): - continue CPAP Assessment & Plan (04/19/2024 12:49 PM WATERWORKS PUMP STATION OPERATOR): Continue with CPAP Assessment & Plan (04/18/2024 1:45 PM WATERWORKS PUMP STATION OPERATOR): Continue with CPAP Assessment & Plan (04/18/2024 2:03 AM WATERWORKS PUMP STATION OPERATOR): CW CPAP Assessment & Plan (04/02/2023 8:42 [...] 10/22/2020 Assessment & Plan (06/05/2024 11:46 AM WATERWORKS PUMP STATION OPERATOR): -BMI 34, encourage weight loss Assessment & Plan (06/03/2024 8:05 AM WATERWORKS PUMP STATION OPERATOR): BMI 34, encouraged weight loss Assessment & Plan (05/27/2024 7:50 AM WATERWORKS PUMP STATION OPERATOR): BMI 34, encouraged weight loss Assessment & [...] 06/14/2018 Assessment & Plan (06/05/2024 11:42 AM WATERWORKS PUMP STATION OPERATOR): Pt c/o chest pain x 3 days relieved with SL nitro. -hx CABG and PCI in past -slightly elevated troponin, continue to trend -EKG unremarkable -increase imdur to 60mg daily -continue coreg, hold ASA 2/2 GIB, previously discontinued statin 2/2 elevated LFT -denies CP since admit Assessment & Plan (06/04/2024 11:36 AM WATERWORKS PUMP STATION OPERATOR): Pt c/o chest pain x 3 days relieved with SL nitro. -hx CABG and PCI in past -slightly elevated troponin, continue to trend -EKG unremarkable -increase imdur to 60mg daily -continue coreg, hold ASA 2/2 GIB, previously discontinued statin 2/2 elevated LFT -denies CP since admit Assessment & Plan (06/03/2024 8:00 AM WATERWORKS PUMP STATION OPERATOR): Pt c/o chest pain x 3 days relieved with SL nitro. -hx CABG and PCI in past -slightly elevated troponin, continue to trend -EKG unremarkable -increase imdur to 60mg daily -continue coreg, hold ASA 2/2 GIB, previously discontinued statin 2/2 elevated LFT -denies CP since admit Assessment & Plan (05/27/2024 12:21 PM WATERWORKS PUMP STATION OPERATOR): Pt c/o chest pain x 3 days [...] diuretics Assessment & Plan (08/02/2019 9:43 AM WATERWORKS PUMP STATION OPERATOR): -chronic systolic end stage heart failure -exam [...] -tele Assessment & Plan (08/01/2019 12:24 PM WATERWORKS PUMP STATION OPERATOR): -chronic systolic end stage heart failure -exam appears euvolemic and LVAD appears to be functioning appropriately -suspect that presenting CP 2/2 poorly controlled BP -continue asa/losartan and coreg/nitrate doses increased -add home torsemide for improved BP control -2D echo pending -continue low sodium diet -tele Assessment & Plan (07/31/2019 4:15 PM WATERWORKS PUMP STATION OPERATOR): Appears euvolemic on exam Admitted with elevated [...] therapy on April 12, 2015 for underlying [place] [employer] class IV heart failure Assessment & Plan (08/31/2024 8:44 AM CDT): ICM with HFrEF S/P SAUSAGE SMOKER-D and DT-HM3 (03/2015) admitted with BRBPR. Hemodynamically stable, appears euvolemic and denies VAD alarms. INR 2.24 on admission. -held warfarin for GIB, restarted warfarin 4/1 with heparin bridge -INR now therapeutic and heparin gtt d/c'd -INR goal 1.8-2.2, check daily -INR trend 1.48 -> 1.76 -> 1.95->1.84 -decrease warfarin to 3 mg daily -stopped asa -cont entresto, coreg, imdur -start spironolactone 25 mg daily -cont suppressive abx for hx driveline infection -PT/OT/form setter supervisor -tele monitoring Assessment & Plan (08/30/2024 1:39 PM CDT): ICM with HFrEF S/P SAUSAGE SMOKER-D and DT-HM3 (03/2015) admitted with BRBPR. Hemodynamically [...] -cont suppressive abx for hx driveline infection -PT/OT/form setter supervisor -tele monitoring Assessment & Plan (08/29/2024 9:09 AM CDT): ICM with HFrEF S/P SAUSAGE SMOKER-D and DT-HM3 (03/2015) admitted with BRBPR. Hemodynamically stable, appears euvolemic and denies VAD alarms. INR 2.24 on admission. -held warfarin for GIB, INR now 1.48, restarting warfarin with heparin bridge -warfarin 5mg tonight then 4mg daily -stopped asa -cont entresto, coreg, imdur -cont suppressive abx for hx driveline infection -PT/OT/form setter supervisor -tele monitoring Assessment & Plan (08/26/2024 12:36 PM CDT): ICM with HFrEF S/P SAUSAGE SMOKER-D and DT-HM3 (03/2015) admitted with BRBPR. Hemodynamically stable, appears euvolemic and denies VAD alarms. INR 2.24 on admission. -hold warfarin for GIB -cont entresto, coreg, imdur -cont suppressive abx for hx driveline infection -tele monitoring Assessment & Plan (08/24/2024 10:44 AM CDT): ICM with HFrEF S/P SAUSAGE SMOKER-D and DT-HM3 (03/2015) admitted with BRBPR. Hemodynamically [...] 2:53 AM CDT): ICM with HFrEF S/P SAUSAGE SMOKER-D and DT-HM3 (03/2015) admitted with BRBPR. Hemodynamically stable, appears euvolemic and denies VAD alarms. INR 2.24 on admission. 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 -tele monitoring Assessment & Plan (04/19/2024 12:46 PM WATERWORKS PUMP STATION OPERATOR): ICM with HFrEF S/P SAUSAGE SMOKER-D and DT-HM3 (03/2015) Hx of recurrent drive [...] diet Assessment & Plan (04/18/2024 1:45 PM WATERWORKS PUMP STATION OPERATOR): ICM with HFrEF S/P SAUSAGE SMOKER-D and DT-HM3 (03/2015) Hx of recurrent drive [...] diet Assessment & Plan (04/18/2024 3:54 AM WATERWORKS PUMP STATION OPERATOR): ICM with HFrEF S/P SAUSAGE SMOKER-D and DT-HM3 (03/2015) Hx of recurrent drive [...] BP not improved with IVF will need STONE CLEANER -strict I/Os, daily standing weights -tele Assessment [...] Assessment & Plan (09/02/2021 12:01 PM CDT): [facility] March 2015 -LVAD functioning appropriately, no alarms -acute on chronic systolic HF with VENU and elevated LFTs -treated with IV lasix with improvement -transitioned back to home torsemide -INR 1.8, will increase warfarin to 6mg daily except Sun/Mon 5mg (home regimen) -continue home carvedilol, hydralazine, isordil, ASA, atorvastatin -I&Os, daily weights, telemetry Assessment & Plan (09/01/2021 9:21 AM CDT): [facility] March 2015 -LVAD functioning appropriately, no alarms -acute on chronic systolic HF with VENU and elevated LFTs -treated with IV lasix with improvement -transition back to home torsemide -INR down to 1.7; will give extra dose warfarin this morning -continue warfarin -continue home carvedilol, hydralazine, isordil, ASA, atorvastatin -I&Os, daily weights, telemetry Assessment & Plan (08/31/2021 3:38 PM CDT): [facility] March 2015 -LVAD functioning appropriately, no alarms [...] Assessment & Plan (08/28/2021 1:53 PM CDT): [facility] March 2015 -LVAD functioning appropriately, no alarms -appears near euvolemic on exam -INR supratherapeutic, hold warfarin tonight -continue home carvedilol, hydralazine, isordil, ASA, atorvastatin -I&Os, daily weights, telemetry Assessment & Plan (08/27/2021 11:55 AM CDT): [facility] March 2015 LVAD functioning appropriately, no alarms -appears near euvolemic on exam -resume home torsemide 20mg daily -INR therapeutic at 2.8 (goal 2-3) -continue home warfarin regimen: 4mg SMWF, 5mg TTS -continue home carvedilol, hydralazine, isordil -continue home ASA 325mg daily, atorvastatin -I&Os, daily weights, telemetry -complication management as above Assessment & Plan (08/26/2021 11:32 AM CDT): [facility] March 2015 LVAD functioning appropriately, no alarms -appears euvolemic on exam -hold home diuretics for now (torsemide 20mg daily) -INR therapeutic at 2.5 (goal 2-3) -continue home warfarin regimen: 4mg SMWF, 5mg TTS -continue home carvedilol, hydralazine, isordil -continue home ASA 325mg daily, atorvastatin -I&Os, daily weights, telemetry -complication management as above Assessment & Plan (08/25/2021 10:29 AM CDT): [facility] March 2015 LVAD functioning appropriately, no alarms [...] 2-3) Increase Warfarin to 7mg Monitor on supervisor sewer system I/Os, daily weights Assessment & Plan (10/23/2020 [...] 325 Assessment & Plan (07/31/2019 4:13 PM WATERWORKS PUMP STATION OPERATOR): Patient was implanted in March 2015 as [...] INR checks. Cardiac resynchronization th erapy defibrillator (SAUSAGE SMOKER-D) in place 12/30/2017 Overview (12/21/2021): Reached EoL in 2018 - elected NOT to generator change VT (ventricular tachycardia) (CMS/HCC) 8 Overview (12/21/2021): Occurring before LVAD implantation - none since SAUSAGE SMOKER-D device (Metronic-- implanted prior to lvad. Pt is not PPM dependent and decision made to not proceed with generator change in December 2017) Assessment & Plan (09/11/2021 10:26 AM CDT): -NSVT on telemetry -Monitor and replete electrolytes -telemetry Assessment & Plan (09/10/2021 9:31 AM CDT): nsvt noted on supervisor sewer system for increase in arrythmia Keep potassium above 4 and magnesium around 2 CTM Assessment & Plan (08/02/2019 9:55 AM WATERWORKS PUMP STATION OPERATOR): -SAUSAGE SMOKER-D device (Metronic-- implanted prior to lvad. Pt is not PPM dependent and decision made to not proceed with generator change in December 2017) -continue tele Assessment & Plan (08/01/2019 12:21 PM WATERWORKS PUMP STATION OPERATOR): -SAUSAGE SMOKER-D device (Metronic-- implanted prior to lvad. Pt is not PPM dependent and decision made to not proceed with generator change in December 2017) -continue tele Assessment & Plan (07/31/2019 4:21 PM WATERWORKS PUMP STATION OPERATOR): patient had SAUSAGE SMOKER-D device metronic implanted prior to lvad Is not pacemaker depenent Saw Dr. 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 Assessment & Plan (06/01/2024 11:39 AM WATERWORKS PUMP STATION OPERATOR): -CT scan has increase stool burden with stool ball in sigmoid colon -S/p enema for preparation for flex sigmoidoscopy performed on 05/29 -Patient has had several BMs since but none yet today -Continue Miralax BID, senna-docusate BID and dulcolax suppository PRN -Add lactulose today Assessment & Plan (05/31/2024 9:45 AM WATERWORKS PUMP STATION OPERATOR): -CT scan has increase stool burden with stool ball in sigmoid colon -S/p enema for preparation for flex sigmoidoscopy performed on 05/29 -Patient has had several BMs including this morning -Continue Miralax, senna-docusate and dulcolax suppository PRN Assessment & Plan (05/27/2024 2:45 AM WATERWORKS PUMP STATION OPERATOR): - had large BM in ED - [...] baseline Assessment & Plan (06/05/2024 11:46 AM WATERWORKS PUMP STATION OPERATOR): -Creatinine at baseline -Avoid nephrotoxins, renally dose meds as appropriate -Avoid hypotension -BMP daily Assessment & Plan (06/04/2024 11:44 AM WATERWORKS PUMP STATION OPERATOR): -Creatinine at baseline -Avoid nephrotoxins, renally dose meds as appropriate -Avoid hypotension -BMP daily Assessment & Plan (06/03/2024 8:05 AM WATERWORKS PUMP STATION OPERATOR): Creatinine at baseline Assessment & Plan (06/01/2024 11:40 AM WATERWORKS PUMP STATION OPERATOR): Creatinine at baseline Assessment & Plan (05/29/2024 11:32 AM WATERWORKS PUMP STATION OPERATOR): Creatinine at baseline Assessment & Plan (05/27/2024 7:49 AM WATERWORKS PUMP STATION OPERATOR): Creatinine at baseline Assessment & Plan (04/19/2024 12:49 PM WATERWORKS PUMP STATION OPERATOR): Cr at baseline CTM. Assessment & Plan (04/18/2024 1:23 PM WATERWORKS PUMP STATION OPERATOR): Cr at baseline CTM. Assessment & Plan (04/18/2024 1:46 AM WATERWORKS PUMP STATION OPERATOR): Cr at baseline CTM. Assessment & Plan [...] follow Assessment & Plan (08/02/2019 9:51 AM WATERWORKS PUMP STATION OPERATOR): Stage 3 CKD -Cr remains stable and in baseline range Assessment & Plan (08/01/2019 12:25 PM WATERWORKS PUMP STATION OPERATOR): Stage 3 CKD -Cr remains stable and in baseline range Assessment & Plan (07/31/2019 4:15 PM WATERWORKS PUMP STATION OPERATOR): History ckd stage 3 . Baseline creatine [...] PPI Assessment & Plan (05/27/2024 5:42 AM WATERWORKS PUMP STATION OPERATOR): - IV ppi Assessment & Plan (04/19/2024 12:39 PM WATERWORKS PUMP STATION OPERATOR): Continue with pantoprazole. Assessment & Plan (04/18/2024 1:41 PM WATERWORKS PUMP STATION OPERATOR): Continue with pantoprazole. Assessment & Plan (04/18/2024 1:39 AM WATERWORKS PUMP STATION OPERATOR): CW pantoprazole. Assessment & Plan (03/20/2022 1:03 [...] PPI Assessment & Plan (08/02/2019 9:45 AM WATERWORKS PUMP STATION OPERATOR): -+ dyspepsia -continue PPI Assessment & Plan (08/01/2019 10:33 AM WATERWORKS PUMP STATION OPERATOR): -+ dyspepsia -continue PPI Assessment & Plan (07/31/2019 4:00 PM WATERWORKS PUMP STATION OPERATOR): Increase home dose PPI to bid to [...] 8:23 AM CDT): -H/H stable from prior [facility] reading and pt denies bleeding -Home iron supplementation held for now -continue to follow Assessment & Plan (07/31/2019 4:09 PM WATERWORKS PUMP STATION OPERATOR): History of anemia - currently blood counts on admission look good Will continue to follow . Hyperlipidemia 01/07/2014 Assessment & Plan (04/19/2024 12:39 PM WATERWORKS PUMP STATION OPERATOR): Holding statin for elevated liver enzymes. Assessment & Plan (04/18/2024 1:16 PM WATERWORKS PUMP STATION OPERATOR): Holding statin for elevated liver enzymes. Assessment & Plan (04/18/2024 1:42 AM WATERWORKS PUMP STATION OPERATOR): Holding statin for elevated liver enzymes. Assessment [...] 08/15/20 Assessment & Plan (07/31/2019 4:10 PM WATERWORKS PUMP STATION OPERATOR): hi reports being on stelera injections Peripheral vascular disease 01/07/2014 Overview (09/03/2016): PVD Hypertension 01/07/2014 Assessment & Plan (04/19/2024 12:41 PM WATERWORKS PUMP STATION OPERATOR): -Continue with Entresto, Hydralazine, coreg and imdur. -Monitor BP and adjust accordingly. -Orthostatic BP as patient mentioned having occasional lightheadedness while standing. -encourage adequate rehydration, safety precautions while changing positions, compression stockings. May consider med readjustment if symptoms persist Assessment & Plan (04/18/2024 1:42 PM WATERWORKS PUMP STATION OPERATOR): -Continue with Entresto, Hydralazine, coreg and imdur. -Monitor BP and adjust accordingly. -Orthostatic BP as patient mentioned having occasional lightheadedness while standing. Assessment & Plan (04/18/2024 3:57 AM WATERWORKS PUMP STATION OPERATOR): CW Entresto, Hydralazine, coreg and imdur. Monitor [...] needed Assessment & Plan (08/02/2019 9:41 AM WATERWORKS PUMP STATION OPERATOR): -pt presented with poorly controlled hypertension -systolic BP remains elevated despite increased nitrates and coreg doses -consider addition of low dose norvasc to regimen -continue losartan and torsemide to regimen Assessment & Plan (08/01/2019 12:23 PM WATERWORKS PUMP STATION OPERATOR): -pt presented with poorly controlled hypertension -nitrates and coreg increased--continue to follow and titrate as needed -continue losartan and add torsemide to regimen Assessment & Plan (07/31/2019 3:57 PM WATERWORKS PUMP STATION OPERATOR): Elevated blood pressures at home and recorded [...] 06/02/2024 Assessment & Plan (05/27/2024 2:07 AM WATERWORKS PUMP STATION OPERATOR): - flomax; low threshold to hold if recurrent hypotension Assessment & Plan (04/19/2024 12:39 PM WATERWORKS PUMP STATION OPERATOR): tamsulosin. Assessment & Plan (04/18/2024 1:13 PM WATERWORKS PUMP STATION OPERATOR): tamsulosin. Assessment & Plan (04/18/2024 1:39 AM WATERWORKS PUMP STATION OPERATOR): tamsulosin. Assessment & Plan (04/02/2023 8:42 AM [...] SSI Assessment & Plan (05/27/2024 2:51 AM WATERWORKS PUMP STATION OPERATOR): Home regimen includes lantus 30 IU nightly and lispro SSI - continue with basal (dose reduced to 17 units during prior admission) and SSI only (he states he takes 1-6 of lispro with meals) - add bolus TID if needed Assessment & Plan (04/19/2024 12:50 PM WATERWORKS PUMP STATION OPERATOR): Home regimen includes lantus 30 IU nightly and lispro (6-20 IU) (per patient he takes 18 international units with most of the meals) - continue with basal bolus (dose reduced to 17 units) and prandial (dose reduced to 6 units with meals) regimen in additional to SSI - Monitor blood sugar and adjust insuline as needed. Assessment & Plan (04/18/2024 1:55 PM WATERWORKS PUMP STATION OPERATOR): Home regimen includes lantus 30 IU nightly and lispro (6-20 IU) (per patient he takes 18 international units with most of the meals) - continue with basal bolus (dose reduced to 17 units) and prandial (dose reduced to 6 units with meals) regimen in additional to SSI - Monitor blood sugar and adjust insuline as needed. Assessment & Plan (04/18/2024 1:42 AM WATERWORKS PUMP STATION OPERATOR): Home regimen includes lantus 30 IU nightly [...] SSI Assessment & Plan (08/02/2019 9:45 AM WATERWORKS PUMP STATION OPERATOR): -HgA1C well controlled -continue lantus and SSI Assessment & Plan (08/01/2019 10:36 AM WATERWORKS PUMP STATION OPERATOR): -HgA1C well controlled -continue lantus and SSI Assessment & Plan (07/31/2019 3:54 PM WATERWORKS PUMP STATION OPERATOR): Recheck hemglobin a1c - last one recored in september 2016- 7.5 Patient states hemglobin a1c controlled as outpatient Continue lantus 30 units at [facility] and SSI CAD in [place] artery 01/07/2014 025 Overview (02/23/2021): Coronary artery disease with history of coronary artery bypass graft with a MARIN to the LAD and free radial graft to obtuse marginal with multiple subsequent PCI to the right coronary artery. Assessment & Plan (05/27/2024 5:29 AM WATERWORKS PUMP STATION OPERATOR): SP CABG (MARIN-LAD, free radial graft-OM ) S/p PCI to RCA - hold asa, hold coreg - statins held previously due to prior abnormal LFTs - continue trop trend to peak; currently chest pain free though he did take nitro in last 2-3 days Assessment & Plan (04/19/2024 12:39 PM WATERWORKS PUMP STATION OPERATOR): SP CABG -Asymptomatic. -Negative troponin. -continue with ASA and coreg. -holding statins d/t abnormal LFTs Assessment & Plan (04/18/2024 1:41 PM WATERWORKS PUMP STATION OPERATOR): SP CABG -Asymptomatic. -Negative troponin. -continue with ASA and coreg. Assessment & Plan (04/18/2024 1:43 AM WATERWORKS PUMP STATION OPERATOR): SP CABG Asymptomatic. Negative troponin. CW ASA, [...] carvedilol Assessment & Plan (07/31/2019 4:08 PM WATERWORKS PUMP STATION OPERATOR): Admitted with chest pain relieved in setting [...] Type Department Care Team Description 12/08/2024 Telephone [facility] Transplant Heart [address] 03-11-495 [place] [address] Courtney Bonilla RN 12/06/2024 10:[address] 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 Transplant Heart [address] [facility] [address] Mailstop 86-49-616 [place] [address] Pao Allen RN 12/06/2024 Documentation [facility] Infectious Diseases [address] [facility] [address] [place] [phone] Shanelle Sanches, SANKET 12/06/2024 Orders Only [facility] Infectious Diseases [address] 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 [address] [place] [phone] Alia Espinoza 12/03/2024 Telephone [facility] [address] [place] [address] Katrin Veloz RN 12/03/2024 Documentation [facility] Infectious Diseases [address] [facility] [address] [place] [phone] Shanelle Sanches, SANKET 12/03/2024 Orders Only [facility] Infectious Diseases [address] 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 [address] [place] [address] Alia Espinoza 11/23/2024 Home Infusion [facility] [address] [place] [address] James Espinoza, [facility] 11/22/2024 Telephone [facility] Cardiology [address] [facility] ([place], [place]) Advanced Medicine 8th [place] [address] [place] [phone] Suresh Verma MD 11/21/2024 Telephone [facility] Infectious Diseases [address] [facility] [address] [place] [address] Americo Mcneil MD 11/21/2024 Anticoagulation Telephone Call [facility] Transplant Heart [address] [facility] [address] Mailstop 34-07-858 [place] [address] Courtney Bonilla RN 11/20/2024 Telephone [facility] Cardiology [address] [facility] ([place], [place] Advanced Medicine 8th [place] [address] [place] [phone] Suresh Wyman MD PhD 11/20/2024 Telephone [facility] Transplant Heart [address] [facility] [address] Mailstop 11-38-478 [place] [address] Isaiah Miranda 11/20/2024 Home Infusion [facility] [address] [place] [address] Lorraine Bloom 11/19/2024 Telephone [facility] Infectious Diseases [address] [facility] [address] [place] [address] Alia Espinoza 11/19/2024 Telephone [facility] Infectious Diseases [address] [facility] [address] [place] [phone] Alia Espinoza 11/19/2024 Results Follow-Up [facility] Dermatology [address] [facility] [address] [place] [phone] Kevin Dodd MD Surgical pathology 11/13/2024 Anticoagulation Telephone Call [facility] Transplant Heart [address] [facility] [address] Mailstop 20-88-326 [place] [address] Pao Allen RN 11/13/2024 Orders Only [facility] [address] [place] [address] Kevin Dodd MD Neoplasm of unspecified behavior of bone, soft tissue, and skin 11/12/2024 10:30 AM CDT Office Visit [facility] Dermatology [address] [facility] Outpatient Health [address] [place] [phone] Kevin Dodd MD Neoplasm of unspecified behavior of bone, soft tissue, and skin (Primary Dx); Postop check 11/12/2024 Telephone [facility] Cardiology [address] [facility] ([place], [place] Advanced Medicine 8th [place] [address] [place] [address] Suresh Verma MD 11/11/2024 Telephone [facility] Transplant Heart [address] [facility] [address] Mailstop [phone] [place] [address] Pao Allen, RN LVAD Equipment Replacement (EBB) 11/10/2024 Telephone [facility] Transplant Heart [address] [facility] [address] Mailstop 55-55-697 [place] [address] Pao Allen, RN 11/06/2024 Anticoagulation Telephone Call [facility] Transplant Heart [address] [facility] [address] Mailstop 63-87-770 [place] [address] Pao Allen, SANKET 11/02/2024 Anticoagulation Telephone Call [facility] Transplant Heart [address] [facility] [address] Mailstop 28-86-595 [place] [address] Pao Allen RN 10/25/2024 10:00 AM CDT Office Visit [facility] Cardiology [facility] Medical Office Building [address] [place] [phone] Ischemic cardiomyopathy (Primary Dx); Chronic systolic heart failure (HCC); Transaminitis; LVAD (left ventricular assist device) present ICM, end-stage systolic CHF s/p HM3 (2014) 10/25/2024 9:20 AM CDT Office Visit [facility] Infectious Diseases [address] [place] [address] Medical Office Building [address] [place] [phone] Americo Mcneil MD 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) 10/23/2024 Anticoagulation Telephone Call [facility] Transplant Heart [address] [place] [address] [address] Mailstop 29-13-419 [place] [address] Pao Allen, RN 10/23/2024 Home Infusion [facility] [address] [place] [address] Edwina Robb [facility] Infection and inflammatory reaction due to cardiac device, implant, and graft, sequela (Primary Dx); Bacterial intestinal infection; Presence of heart assist device (HCC) 10/18/2024 Orders Only [facility] [address] [facility] [address] [place] [address] Korey Warren RPh 10/18/2024 Telephone [facility] Transplant Heart [address] [place] [address] [address] Mailop 03-51-805 [place] [address] Steffany Reyes 10/15/2024 11:00 AM CDT Procedure visit [facility] Dermatology [address] [facility] Outpatient Health [address] [place] [phone] Kevin Dodd MD Actinic keratosis (Primary Dx); 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 [address] [place] [address] Shanelle Sanches RN 10/11/2024 Anticoagulation Telephone Call [facility] Transplant Heart [address] [place] [address] [address] Mailstop 70-55-868 [place] [address] Pao Allen, SANKET 10/11/2024 Documentation [facility] Infectious Diseases [address] [facility] [address] [place] [address] Shanelle Sanches, SANKET 10/04/2024 Telephone [facility] Trans[facility] Heart [address] [facility] [address] Mailstop 62-90-774 [place] [address] Faby Macdonald 10/02/2024 Anticoagulation Telephone Call [facility] Transplant Heart [address] [facility] [address] Mailstop 70-45-026 [place] [address] Pao Allen RN 10/02/2024 Telephone [facility] Transplant Heart [address] [facility] [address] Mailstop 22-39-300 [place] [address] Karoline Álvarez 10/01/2024 Telephone [facility] Infectious Diseases [address] [facility] [address] [place] [address] Destinee Peraza RMA 10/01/2024 Telephone [facility] Dermatology [address] [place] [address] Outpatient Health [address] [place] [address] Tin Pinedo PA 09/28/2024 Telephone [facility] [address] [facility] [address] [place] [address] Korey Warren [facility] 09/28/2024 Results Follow-Up [facility] Dermatology [address] [facility] [address] [place] [address] Tin Pinedo PA Surgical pathology 09/27/2024 Documentation [facility] Infectious Diseases [address] [facility] [address] [place] [address] Thelma Desai Lab Results 09/26/2024 Orders Only [facility] [address] [place] [address] Tin Pinedo PA Neoplasm of skin 09/25/2024 2:45 PM CDT Office Visit [facility] Dermatology [address] [place] [address] Outpatient Health [address] [place] [address] Tin Pinedo PA Actinic keratosis (Primary Dx); Neoplasm of skin; Inflamed seborrheic keratosis; Multiple benign nevi; Seborrheic keratosis; Seborrheic dermatitis; History of nonmelanoma skin cancer 09/25/2024 Telephone [facility] Infectious Diseases [address] [facility] Medical Office Building [address] [place] [address] Americo Mcneil MD 09/24/2024 Anticoagulation Telephone Call [facility] Transplant Heart [address] [facility] [address] Mailstop 15-68-311 [place] [address] Estrella Arvizu RN 09/24/2024 Telephone [facility] Transplant Heart [address] [facility] [address] Mailstop 50-28-072 [place] [address] Karoline Álvarez 09/21/2024 Telephone [facility] Transplant Heart [address] [place] [address] [address] Mailstop 31-59-062 [place] [address] Karoline Álvarez 09/21/2024 Telephone [facility] Infectious Diseases [address] [address] Destinee Peraza RMA 09/20/2024 2:30 PM CDT Office Visit [facility] Orthopaedic Surgery [address] [place] [address] Office [address] [place] [address] aTmmy Zavala PA Primary osteoarthritis of left knee (Primary Dx); Knee effusion, left 09/20/2024 1:52 PM CDT - 09/20/2024 11:59 PM CDT Hospital Encounter [facility] [address] [place] [address] [address] [place] [address] Left knee pain, unspecified chronicity Discharge Disposition: Discharge to home or self care 09/20/2024 Documentation [facility] Infectious Diseases [address] [address] Thelma Desai Progress/Monitoring 09/18/2024 Anticoagulation Telephone Call [facility] Transplant Heart [address] [place] [address] [address] Mailstop 24-83-645 [place] [address] Pao Allen, RN 09/17/2024 Telephone [facility] Infectious Diseases [address] [facility] [address] [place] [address] Indiana Guerrero CMA 09/14/2024 Orders Only [facility] [address] [facility] [address] [place] [address] Ashlie Jorge, [facility] 09/11/2024 Documentation [facility] Infectious Diseases [address] [facility] [address] [place] [address] Thelma Desai Progress/Monitoring 09/11/2024 Anticoagulation Telephone Call [facility] Transplant Heart [address] [place] [address] [address] Mail[address] 73-28-369 [place] [address] Pao Allen, RN 09/10/2024 Telephone [facility] Transplant Heart [address] [place] [address] [address] Mailstop 68-37-685 [place], [place] [id number] Isaiah Miranda from Last 3 Months Immunizations Immunization Administration [...] d amage [place] (ventricular tachycardia) ([facility]) 12/30/2017 Occurring before LVAD implantation - none since Occurring before LVAD implantation - none since Last Assessment & Plan: -SAUSAGE SMOKER-D device (Metronic-- implanted prior to lvad. Pt [...] drink = 0.6 oz pur e alcohol) [facility] Utilities Answer Date Recorded In [...] often do you attend chur ch or muslim services? More than 4 times per year 08/25/2024 Do you belong to any clubs o r organizations such as taoist groups, unions, fraternal or athletic groups, or [...] place to sleep or slept in a fci (including now)? Patient refused 03/23/2023 Housing Stability [...] were you homeless or living in a fci (including now)? No 08/25/2024 Personal Safety Answer Date Recorded Have you ever been in or are you currently in a harmful physical or emotional relationship or is someone making you feel afraid or unsafe? Denies 08/23/2024 Sex and Gender Information Value Date Recorded Sex Assigned at Not on file Legal Sex Male 12:11 AM WATERWORKS PUMP STATION OPERATOR Gender Identity Not on file Sexual [...] 1968 Well Visit 65+ 2013 Covid-19 Vaccine (4 - 2023-2 5 season) 2024 05/04/2021, 08/15/2020, 07/18/2020 Influenza Vaccine (#1) 2025 , 03/18/2023, 03/08/2022, Additional history exists Hemoglobin A1C 02/23/2025 08/23/2024, 04/30, 03/14/2023, Additional history exists Depression Screening 05/26/2025 05/26/2024 Lipid Panel 05/26/2025 05/26/2024, 02/27, 12/22/2022, Additional history exists Fall Risk Assessment 08/31/2025 08/31/2024 eGFR 12/06/2025 12/06/2024, 11/27, 12/05/2024, Additional history exists DTaP/Tdap/Td Vaccine (3 - Td or Tdap) 11/22/2033 11/23/2023, 06/26/2020 Colon Cancer Screening-Colonoscopy Discontinued 10/16/2013 Pneumococcal vaccine 65+ Completed 021, 03/06/2014, 03/16/2007 Zoster Vaccine Completed 11/23/2023, 04/30, 08/25/2018, Additional history exists Hepatitis C Screening Completed 04/17/2024 , 04/16/2024, 04/03/2015, Additional history exists Colon Cancer Screening-CT Colonography Discontinued 05/29/2024, 10/16/2013 Colon Cancer Screening-DNA Stool Discontinued 05/29/20 24, 10/16/2013 Colon Cancer Screening-FIT Discontinued 05/29/2024, Colon Cancer Screening-FOBT Discontinued 05/29/2024, 0 10/16/2013 Colon Cancer Screening-Sigmoidoscopy Discontinued 05/29/2024, 10/16/2013 Colorectal Cancer Screening Discontinued Medical Devices Implanted Type Area Skylights Assembler Device Identifier Shelf Expiration Date Model / Serial / Lot Icd ICD Left: Chest Wall Med[employer]onic Lvad LVAD Left: Abdomen [employer]/C R Bard Ventralight St Sepra 8x6in Uncoated Monofilament Lightweight [id number] - [id number] Implanted:Qty: 1 on 03/22/2023 by Tony Blood MD at [facility] Mesh N/A: Abdomen [employer]/C R Bard [id number] 09/24/2024 [id number] / / [id number] Procedures Procedure Name Priority Date/Time Associated Diagnosis Comments EGFR Routine 12/06/2024 10:49 AM CDT LVAD (left ventricular assist device) present (HCC) EGFR Routine 12/06/2024 10:49 AM CDT 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 Department [place] [address] * eGFR (12/06/2024 10:49 AM [...] LAB BLOOD ORDERABLES Fi nal Result [facility] [address] [facility]. [place] [address] * (ABNORMAL) Differential, auto (12/06/2024 10:49 AM [...] 2017. Imm gran pct 0.7 % [facility] Comment: Interpretive Data Percent cell count reference ranges are not reported, since discordance with absolute values may lead to misinterpretation of CBC data. Current Interpretive Data was last revised on 2017. Lymphocyte pct 11.8 % [facility] Comment: Interpretive Data Percent cell count reference ranges are not reported, since discordance with absolute values may lead to misinterpretation of CBC data. Current Interpretive Data was last revised on 2017. Monocyte pct 9.3 % [facility] Comment: Interpretive Data Percent cell count reference ranges are not reported, since discordance with absolute values may lead to misinterpretation of CBC data. Current Interpretive Data was last revised on 2017. Eosinophil pct 7.1 % [facility] Comment: Interpretive Data Percent cell count reference ranges are not reported, since discordance with absolute values may lead to misinterpretation of CBC data. Current Interpretive Data was last revised on 2017. Basophil pct 1.1 % [facility] Comment: Interpretive Data Percent cell count reference ranges are not reported, since discordance with absolute values may lead to misinterpretation of CBC data. Current Interpretive Data was last revised on 2017. Blood 12/06/2024 10:4 9 AM CDT 12/06/2024 11:35 AM CDT us Chloe Keys NP LAB BLOOD ORDERABLES Final Result Performing Organization Address City/[facility]/ZIP Co de Phone Number [facility] [address] [address] [place] [employer] [place] [address] * HIV 1/2 Antibody plus p24 Antigen Blood (12/06/2024 10:49 AM CDT) [facility] HIV 1/2 ab + p24 ag Nonreactive Nonreactive Comment: Nonreactive for HIV-1 antigen and HIV-1/HIV-2 antibodies. No laboratory evidence of HIV infection. If acute HIV infection is suspected, consider testing for HIV-1 RNA. Testing performed by: [facility], [facility], [place]., [address] Blood 12/06/2024 10:4 9 AM CDT 12/06/2024 2:51 PM CDT Americo Mcneil MD LAB MICROBIOLOGY - GENE RAL ORDERABLES Final Result Performing Organization Address City/[facility]/ZIP Co de Phone Number [facility] [address] [address] [place] [employer] [place] [address] * (ABNORMAL) CBC with auto differential (12/06/2024 10:49 AM CDT) WBC 8.13 3.80 - 9.90 K/cumm Hgb 13.3 13.0 - 17.5 g/dL [facility] Hct 40.9 38.9 - 50.3 % [facility] Plt 182 150 - 400 K/cumm [facility] MPV 10.9 9.1 - 12.3 fL [facility] RBC 4.26(L) 4.30 - 5.80 M/cumm [facility] MCV 96.0 81.3 - 96.4 fL [facility] MCH 31.2 27.1 - 33.3 pg [facility] MCHC 32.5 32.3 - 35.7 g/dL [facility] RDW CV 14.5 11.1 - 14.9 % [facility] RDW SD 50.9(H) 35.7 - 48.1 fL [facility] NRBC abs 0.00 0.00 - 0.01 K/cumm [facility] Blood 12/06/2024 10:4 9 AM CDT 12/06/2024 11:35 AM CDT Chloe Keys NP LAB BLOOD ORDERABLES Final Result Performing Organization Address City/State/[facility] Co de Phone Number [facility] [address] [facility] Department [place] [address] * (ABNORMAL) Protime-INR (12/06/2024 10:49 AM CDT) PT 15.1(H) 9.7 - 13.0 sec INR 1.39(H) 0.90 - 1.20 [facility] Comment: Interpretive data Oral anticoagulant therapeutic ranges: Venous thromboembolism prophylaxis or treatment: 2.0-3.0 CARDIOLOGY Standard range: 2.0-3.0 High-intensity range: 2.5-3.5 Refer to indication-specific guidelines for appropriate target ranges for prosthetic heart valve replacement. Current interpretive data was last revised on 2019. Blood 12/06/2024 10:4 9 AM CDT 12/06/2024 11:35 AM CDT Chloe Keys LAB BLOOD ORDERABLES Final Result Performing Organization Address [facility] de Phone Number [facility] [address] [facility] [place] [address] * (ABNORMAL) Lactate dehydrogenase (LD) (12/06/2024 10:49 AM CDT) Pathologist [facility] Lactate dehydrogenase (LDH) 280(H) 100 - 250 Units/L Blood 12/06/2024 10:4 9 AM CDT 12/06/2024 11:35 AM CDT Chloe Keys LAB BLOOD ORDERABLES Final Result Performing Organization Address [facility] Phone Number [facility] [address] [place] [address] * (ABNORMAL) Comprehensive metabolic panel (12/06/2024 10:49 AM CDT) Pathologist [facility] Sodium 141 135 - 145 mmol/L Potassium, pl 4.5 3.3 - 4.9 mmol/L [facility] Chloride 106 97 - 110 mmol/L [facility] CO2 23 22 - 32 mmol/L [facility] Anion gap 12 2 - 15 mmol/L [facility] BUN 22 6 - 25 mg/dL [facility] Creatinine 1.24 0.80 - 1.30 mg/dL [facility] Glucose 173 70 - 199 mg/dL [facility] Comment: Interpretive Data Fasting glucose >/= 126 [...] CDT 12/06/2024 11:35 AM CDT Chloe Keys CORPORATE DEVELOPMENT ANALYST LAB BLOOD ORDERABLES Final Result [facility] [id number] [facility] Department [place] [address] * (ABNORMAL) Comprehensive metabolic panel (12/06/2024 10:49 [...] [facility] Glucose 177 70 - 199 mg/dL [facility] Comment: Interpretive Data Fasting glucose >/= [...] ORDERABLES Fi nal Result Performing Organization Address [facility] Co de Phone Number [facility] [address] [facility]. Department [place] [address] * (ABNORMAL) CBC with auto differential (12/05/2024) [...] ORDERABLES Fin al Result Performing Organization Address City/[facility]/ZIP Co de Phone Number [facility] * (ABNORMAL) Protime-INR (12/05/2024) SCRIBED PT 15.1(A) 9.0 - 11.5 sec [facility] SCRIBED INR 1.4(A) 2.0 - 3.0 sec [facility] Blood 12/05/2024 Suresh Verma MD LAB BLOOD ORDERABLES Fin al Result [facility] * (ABNORMAL) Comprehensive metabolic panel (12/05/2024) [...] 35 Units/L [facility] SCRIBED eGFR in NonAfrican Filipino 65 >60 [facility] A/G Ratio 1.5 1.0 - 2.5 [facility] Blood 12/05/2024 Suresh Verma MD LAB BLOOD ORDERABLES Fin al Result [facility] * (ABNORMAL) Protime-INR (11/27/2024) INR 1.80(A) 0.90 - 1.10 Blood Historical Provider LAB BLOOD ORDERABLES Maia l Result * SCAN - LABS (11/23/2024 12:00 AM CDT) Provider Scanning Edited Result - Final * (ABNORMAL) Protime-INR (11/23/2024) SCRIBED PT 18.4(A) 9.0 - 11.5 sec [facility] SCRIBED INR 1.8 0.9 - 4.0 sec [facility] Blood 11/23/2024 Result [facility] Suresh Verma MD LAB BLOOD ORDERABLES [...] Blood 11/20/2024 11:3 5 AM CDT Result [facility] Suresh Verma MD LAB BLOOD ORDERABLES Fin al Result [facility] * (ABNORMAL) Protime-INR (11/20/2024 11:35 AM CDT) SCRIBED PT 19.8(A) 9.0 - 11.5 sec [facility] SCRIBED INR 1.9(A) 2.0 - 3.0 sec [facility] Blood 11/20/2024 11:3 5 AM CDT Suresh Verma MD LAB BLOOD ORDERABLES Fin al Result [facility] * (ABNORMAL) Comprehensive metabolic panel (11/20/2024 [...] 65 >=60 [facility] SCRIBED eGFR in NonAfrican Filipino 65 >=60 [facility] Globulin 2.3 1.0 - 2.5 g/dL (calc) [facility] ALB/GLOB RATIO CALC 1.7 1.0 - 2.5 [facility] Blood 11/20/2024 11:3 5 AM CDT us Suresh Verma MD LAB BLOOD ORDERABLES Fin al Result [facility] * SCAN - LABS (11/20/2024 12:00 AM CDT) us Provider Scanning Final Result * (ABNORMAL) Protime-INR (11/20/2024) Pathologist [facility] INR 1.90(A) 0.90 - 1.10 Blood Result [facility] Provider MD LAB BLOOD ORDERABLES Maia l Result * (ABNORMAL) Protime-INR (11/13/2024) INR 1.80(A) 0.90 - 1.10 Blood Result [facility] Provider MD LAB BLOOD ORDERABLES Maia l Result * (ABNORMAL) CBC with auto differential (11/12/2024 2:35 PM CDT) Pathologist [facility] SCRIBED WBC 7.36 4.5 - 11.0 k/cumm TXP NO LAB FOUND SCRIBED Hemoglobin 11.4(A) 14.0 - 18.0 g/dL TXP NO LAB FOUND SCRIBED Hematocrit 34.6(A) 43.0 - 54.0 % TXP NO LAB FOUND SCRIBED Platelets 157 130 - 400 k/cumm TXP NO LAB FOUND SCRIBED Eosinophils Abs 0.57(A) 0.04 - 0.54 k/cumm TXP NO LAB FOUND Blood 11/12/2024 2:35 PM CDT Result [facility] Suresh Verma MD LAB BLOOD ORDERABLES Fin al Result Performing Organization Address [facility] Co de Phone Number TXP NO LAB FOUND * (ABNORMAL) Protime-INR (11/12/2024 2:35 PM CDT) Pathologist [facility] SCRIBED PT 20.4(A) 10.2 - 12.9 sec TXP NO LAB FOUND SCRIBED INR 1.8(A) 2.0 - 3.0 sec TXP NO LAB FOUND Blood 11/12/2024 2:35 PM CDT Result [facility] Suresh Verma MD LAB BLOOD ORDERABLES Fin al Result Performing Organization Address [facility] Co de Phone Number TXP NO LAB [...] NO LAB FOUND SCRIBED eGFR in NonAfrican Filipino 63 >90 TXP NO LAB FOUND Alb/glob ratio 1.0 1.0 - 2.0 TXP N O LAB FOUND BUN_Creat Ratio 23.5 6 - 26 TXP NO LAB FOUND Blood 11/12/2024 us Suresh Verma MD LAB BLOOD ORDERABLES Fin al Result TXP NO LAB FOUND * Surgical pathology (11/12/2024 12:00 AM CDT) Tissue (Skin, shave biopsy) 11/12/2024 11/13/2024 7:25 AM CDT Narrative [facility]ERMATOPATHOLOGY CENTER - 11/14/2024 3:43 PM CDT EPIC results best viewed via link to PDF [facility] Dermatopathology [place] [address], [address], [place] [address] [email or web address] Note to Patients: This report may [...] Submitting Physician Information: Kevin Dodd M.D. Dermatology [facility] [address] ([facility]), [address], [address] [place] [address], DERMATOPATHOLOGY REPORT RESULTS DIAGNOSIS: SKIN, LEFT FOREHEAD, [...] Olmedo M.D. 11/14/2024 15:43:01 CLINICAL INFORMATION R/O [facility] SPECIMEN DATA MICROSCOPIC DESCRIPTION: Atypical keratinocytes are [...] exr/mat ICD-9 A; ZSD.1474 Clerical Data A; 62974 The characteristics of special, immunohistochemical, and immunofluorescence stains and in-situ hybridization tests performed by the [facility] were deemed acceptable in ongoing vice president quality improvement measures and in compliance with regulations drawn from the Clinical Laboratory Improvement Act pe1328 (CLIA '88). Control reactions for all stains performed were deemed adequate and appropriate by a pathologist prior to evaluation of patient tissue. Some diagnoses were rendered with the assistance of laboratory-developed tests utilizing analyte-specific reagents; the performance characteristic of these tests were determined by [facility] and are not cleared or approved by the [place] Food an Drug administration. Laboratory developed test may only be performed in a facility that is certified by the [facility] as a high-complexity laboratory under CLIA '88. These tests are used for clinical purposes and are not investigational. Result [facility] Kevin Dodd MD LAB PATHOLOGY ORDERABL ES Final Result [facility] [address] [place] [address] * (ABNORMAL) Protime-INR (11/06/2024) Pathologist [facility] INR 1.60(A) 0.90 - 1.10 Blood Crys [...] ORDERABLES Final Re sult Performing Organization Address [facility] de Phone Number [facility] * (ABNORMAL) Comprehensive metabolic panel (11/05/2024) [...] 35 Units/L [facility] SCRIBED eGFR in NonAfrican Filipino 74 >=60 [facility] Globulin 2.5 1.9 - 3.7 g/dL (calc) [facility] Alb/glob ratio 1.5 1.0 - 2.5 [facility] Blood 11/05/2024 Alfredo Spaulding MD LAB BLOOD ORDERABLES Final Re sult Performing Organization Address [facility] de Phone Number [facility] * (ABNORMAL) Protime-INR (11/02/2024) Pathologist [facility] INR 3.00(A) 0.90 - 1.10 Blood Crys Avila MD LAB BLOOD ORDERABLES Maia l Result * (ABNORMAL) CBC with auto differential (10/29/2024 11:38 AM CDT) Pathologist [facility] SCRIBED WBC 6.1 3.8 - 10.8 k/cumm [facility] SCRIBED Hemoglobin 11.8(A) 13.2 - 17.1 g/dL [facility] SCRIBED Hematocrit 37.0(A) 38.5 - 50.0 % [facility] SCRIBED Platelets 190 140 - 400 k/cumm [facility] SCRIBED Eosinophils Abs 689(A) 15 - 500 k/cumm [facility] Blood 10/29/2024 11:3 8 AM CDT Result [facility] Suresh Verma MD LAB BLOOD ORDERABLES Fin al Result Performing Organization Address [facility]/State/ZIP Co de Phone Number [facility] * (ABNORMAL) Protime-INR (10/29/2024 11:38 AM CDT) Pathologist [facility] SCRIBED PT 30.2(A) 9.0 - 11.5 sec [facility] SCRIBED INR 3.0 2.0 - 3.0 sec [facility] Blood 10/29/2024 11:3 8 AM CDT Suresh Verma MD LAB BLOOD ORDERABLES Fin al Result [facility] * (ABNORMAL) Comprehensive metabolic panel (10/29/2024 11:38 AM CDT) Pathologist [facility] SCRIBED Sodium 138 135 - 146 mmol/L [...] 35 Units/L [facility] SCRIBED eGFR in NonAfrican Filipino 83 >=60 [facility] Blood 10/29/2024 11:3 8 AM CDT Result [facility] Suresh Verma MD LAB BLOOD ORDERABLES Fin al Result [facility] * (ABNORMAL) Protime-INR (10/24/2024) INR 3.70(A) 0.90 - 1.10 Blood Result [facility] Crys Avila MD LAB BLOOD ORDERABLES [...] Blood 10/23/2024 12:1 5 PM CDT Result [facility] Suresh Verma MD LAB BLOOD ORDERABLES Fin al Result Performing Organization Address [facility] Co de Phone Number TXP NO LAB FOUND * (ABNORMAL) Protime-INR (10/23/2024) INR 4.70(A) 0.90 - 1.10 Blood Historical Provider LAB BLOOD ORDERABLES Maia l Result * (ABNORMAL) Protime-INR (10/23/2024) SCRIBED PT 40.6(A) 10.2 - 12.9 sec TXP NO LAB FOUND SCRIBED INR 3.7(A) 2.0 - 3.5 sec TXP NO LAB FOUND Blood 10/23/2024 Suresh Verma MD LAB BLOOD ORDERABLES Fin al Result Performing Organization Address [facility] de Phone Number TXP NO LAB FOUND [...] NO LAB FOUND SCRIBED eGFR in NonAfrican Filipino 59 >90 TXP NO LAB FOUND BUN_Creat Ratio 19.0 6 - 26 TXP NO LAB FOUND Alb/glob ratio 1.1 1.0 - 2.0 TXP N O LAB FOUND Blood 10/23/2024 Suresh Verma MD LAB BLOOD ORDERABLES Fin al Result Performing Organization Address [facility] de Phone Number TXP NO LAB FOUND * (ABNORMAL) CBC with auto differential (10/16/2024) SCRIBED WBC 6.4 3.8 - 10.8 k/cumm [facility] SCRIBED Hemoglobin 11.2(A) 13.2 - 17.1 g/dL [facility] SCRIBED Hematocrit 35.4(A) 38.5 - 50.0 % [facility] SCRIBED Platelets 191 140 - 400 k/cumm [facility] Blood 10/16/2024 Suresh Verma MD LAB BLOOD ORDERABLES Fin al Result Performing Organization Address [facility] de Phone Number [facility] * (ABNORMAL) Protime-INR (10/16/2024) SCRIBED PT 45.5(A) 9.0 - 11.5 sec [facility] SCRIBED INR 4.7(A) 2.0 - 3.0 sec [facility] Blood 10/16/2024 Suresh Verma MD LAB BLOOD ORDERABLES Fin al Result Performing Organization Address [facility] de Phone Number [facility] * (ABNORMAL) Comprehensive metabolic panel (10/16/2024) Pathologist [facility] SCRIBED Sodium 139 135 - 148 mmol/L [...] 35 Units/L [facility] SCRIBED eGFR in NonAfrican Filipino 65 >60 [facility] A/G Ratio 1.4 1.0 - 2.5 [facility] Blood 10/16/2024 Suresh Verma MD LAB BLOOD ORDERABLES Ayo leyla Result - Final [facility] * (ABNORMAL) Protime-INR (10/11/2024) Pathologist [facility] INR 1.60(A) 0.90 - 1.10 Blood Crys Avila MD LAB BLOOD ORDERABLES Maia l Result * (ABNORMAL) CBC with auto differential (10/10/2024 1:05 PM CDT) Pathologist [facility] SCRIBED WBC 6.6 3.8 - 10.8 k/cumm [facility] SCRIBED Hemoglobin 11.1(A) 13.2 - 17.1 g/dL [facility] SCRIBED Hematocrit 33.8(A) 38.5 - 50.0 % [facility] SCRIBED Platelets 187 140 - 400 k/cumm [facility] Blood 10/10/2024 1:05 PM CDT Suresh Verma MD LAB BLOOD ORDERABLES Fin al Result Performing Organization Address [facility] Co de Phone Number [facility] * (ABNORMAL) Protime-INR (10/10/2024 1:05 PM CDT) SCRIBED PT 16.9(A) 9.0 - 11.5 sec [facility] SCRIBED INR 1.6(A) 2.0 - 3.0 sec [facility] Blood 10/10/2024 1:05 PM CDT Suresh Verma MD LAB BLOOD ORDERABLES Fin al Result Performing Organization Address [facility] de Phone Number [facility] * (ABNORMAL) Comprehensive [...] 35 Units/L [facility] SCRIBED eGFR in NonAfrican Filipino 69 >=60 [facility] Blood 10/10/2024 1:05 PM CDT Suresh Verma MD LAB BLOOD ORDERABLES Fin al Result Performing Organization Address [facility] de Phone Number [facility] * (ABNORMAL) Protime-INR [...] 140 - 400 k/cumm [facility] Blood 10/01/2024 Result [facility] Suresh Verma MD LAB BLOOD ORDERABLES Fin al Result Performing Organization Address [facility] de Phone Number [facility] * (ABNORMAL) Protime-INR (10/01/2024) SCRIBED PT 14.2(A) 9.0 - 11.5 sec [facility] SCRIBED INR 1.3 0.9 - 4.0 sec [facility] Blood 10/01/2024 Sruesh Verma MD LAB BLOOD ORDERABLES Fin al Result Performing Organization Address City/State/[facility] Co de Phone Number [facility] * (ABNORMAL) [...] 35 Units/L [facility] SCRIBED eGFR in NonAfrican Filipino 64 >=60 [facility] Globulin 2.1 1.9 - 3.7 g/dL (calc) [facility] Alb/glob ratio 1.6 1.0 - 2.5 [facility] Blood 10/01/2024 us Suresh Verma MD LAB BLOOD ORDERABLES Fin al Result [facility] * Surgical pathology (09/25/2024 12:00 AM CDT) Tissue (Skin, shave biopsy) 09/25/2024 09/26/2024 4:30 AM CDT Narrative DERMATOPATHOLOGY CENTER - 09/27/2024 4:26 PM CDT EPIC results best viewed via link to PDF [facility] Dermatopathology [facility] [address], [address], [place] [address] [email or web address] Note to Patients: This report may [...] RECEIVED: 09/26/2024 REPORTED: 09/27/2024 Submitting Physician Information: iTn Pinedo, JUAN [address] [place], [place] [id number] , [phone] DERMATOPATHOLOGY REPORT RESULTS DIAGNOSIS: A. SKIN, LEFT [...] ag/anc ICD-9 ZSD.1474 ZSD.176 Clerical Data A; 22137 B; 55954 The characteristics of special, immunohistochemical, and immunofluorescence stains and in-situ hybridization tests performed by the [facility] were deemed acceptable in ongoing vice president quality improvement measures and in compliance with regulations drawn from the Clinical Laboratory Improvement Act nc0074 (CLIA '88). Control reactions for all stains performed were deemed adequate and appropriate by a pathologist prior to evaluation of patient tissue. Some diagnoses were rendered with the assistance of laboratory-developed tests utilizing analyte-specific reagents; the performance characteristic of these tests were determined by [facility] and are not cleared or approved by the [place] Food an Drug administration. Laboratory developed test may only be performed in a facility that is certified by the [facility] as a high-complexity laboratory under CLIA '88. These tests are used for clinical purposes and are not investigational. us Tin MARTINEZ LAB PATHOLOGY ORDERABL ES Final Result Performing Organization Address City/[facility]/ZIP Co de Phone Number [facility] C[facility] [address] [place] [address] * (ABNORMAL) CBC with auto differential (09/24/2024 [...] us Suresh Verma MD LAB BLOOD ORDERABLES Shawn al Result EXTERNAL LAB * (ABNORMAL) Comprehensive metabolic panel [...] Units/L EXTERNAL LAB SCRIBED eGFR in NonAfrican Filipino 69 >90 EXTERNAL LAB Blood 09/24/2024 1:30 PM CDT us Suresh Verma MD LAB BLOOD ORDERABLES Shawn bullock Result Performing Organization Address [facility]/ZIP Co de Phone Number EXTERNAL LAB * (ABNORMAL) Protime-INR (09/24/2024) INR 2.00(A) 0.90 - 1.10 Blood Historical Provider LAB [...] (09/18/2024) INR 1.90(A) 0.90 - 1.10 Blood us Historical Provider [...] ORDERABLES Fin al Result Performing Organization Address City/[facility]/ZIP Co de Phone Number [facility] * (ABNORMAL) Protime-INR (09/17/2024) Pathologist [facility] SCRIBED PT 19.5(A) 9.0 - 11.5 sec [facility] SCRIBED INR 1.9(A) 2.0 - 3.0 sec [facility] Blood 09/17/2024 Suresh Verma MD LAB BLOOD ORDERABLES Fin al Result Performing Organization Address [facility] Co de Phone Number [facility] * (ABNORMAL) [...] 35 Units/L [facility] SCRIBED eGFR in NonAfrican Filipino 57 >60 [facility] Urea nitrogen ur creatine ur ratio 16 6 - 22 [facility] A/G Ratio 1.4 1.0 - 2.5 [facility] Blood 09/17/2024 Result [facility] Suresh Verma MD LAB BLOOD ORDERABLES Fin al Result [facility] * (ABNORMAL) Protime-INR (09/11/2024) Pathologist [facility] INR 1.90(A) 0.90 - 1.10 Blood Result [facility] Crys Avila MD LAB BLOOD ORDERABLES Maia l Result * (ABNORMAL) CBC with auto differential (09/10/2024) Pathologist [facility] SCRIBED WBC 7.2 3.8 - 10.8 k/cumm SCRIBED Hemoglobin 10.7(A) 13.2 - 17.1 g/dL SCRIBED Hematocrit 33.1(A) 38.5 - 50.0 % SCRIBED Platelets 187 140 - 400 k/cumm Blood 09/10/2024 Result [facility] Suresh Verma MD LAB BLOOD ORDERABLES Fin al Result * (ABNORMAL) Protime-INR (09/10/2024) Pathologist [facility] SCRIBED PT 19.5(A) 9.0 - 11.5 sec SCRIBED INR 1.9(A) 0.9 - 1.1 sec Blood 09/10/2024 Result [facility] Suresh Verma MD LAB BLOOD ORDERABLES Fin al Result * (ABNORMAL) Comprehensive metabolic panel (09/10/2024) Pathologist [facility] SCRIBED Sodium 138 135 - 146 mmol/L [...] - 35 Units/L SCRIBED eGFR in NonAfrican Filipino 55 >60 BUN_Creat Ratio 17 6 - 22 Alb/glob ratio 1.4 1.0 - 2.5 Blood 09/10/2024 us Suresh Verma MD LAB BLOOD ORDERABLES [facility] al Result * (ABNORMAL) Hemoglobin A1c (08/23/2024 4:33 PM CDT) Pathologist [facility] Hgb A1C 7.1(H) 4.0 - 5.6 % Estimated Average Glucose 157 mg/dL [facility] Comment: The ADA recommends reporting an [...] PhD LAB BLOOD ORDERABL ES Final Result [facility] Department [place] [address] * Flexible Sigmoidoscopy (05/29/2024 9:01 AM [employer] STATION OPERATOR) Anatomical Region Laterality Modality Other Narrative Procedure Note Robles Murphy MD - 05/29/2024 9:01 AM CST [facility] Patient Name: Cindy Severino Procedure Date: 05/29/2024 9:01 AM Date of : 1950 Admit Type: Inpatient Age: 73 Gender: Male Attending MD: Marquise Latham Room: [facility] Note Status: Finalized Procedure: Flexible Sigmoidoscopy Indications: Rectal hemorrhage, Abnormal CT of the GI tract Referring MD: Suresh Verma M.D. Providers: Robles Murphy M.D., Royal Burgos M.D. Medicines: Monitored Anesthesia Care Complications: No immediate complications. Estimated Blood Loss: Estimated blood loss was minimal. Procedure: The benefits, risks, and alternatives to theprocedure and sedation were discussed and informed consentwas obtained. The [id number] endoscope was introduced through the anus [...] * (ABNORMAL) Lipid panel (05/26/2024 5:30 PM [employer]ATION OPERATOR) Cholesterol 180 30 - 199 mg/dL Comment: [...] on 2018. Triglycerides 161(H) <=149 mg/dL [facility] Comment: Interpretive Data Ages < or [...] on 2018. HDL 31(L) >=40 mg/dL [facility] Comment: Interpretive Data Ages < or [...] on 2018. LDL, calculated 120 <=129 mg/dL [facility] Comment: Interpretive Data Ages < or [...] Golden Huitron et al. MARCO ANTONIO Cardiol. 2020 September 27;5(5):540-548. doi: [email or web address] Current Interpretive Data was last revised on 2024. Non-HDL Cholesterol 149 mg/dL [facility] Comment: Interpretive Data Ages < [...] last revised on 2018. Chol/HDL ratio 6 [facility] Blood 05/26/2024 5:30 PM WATERWORKS PUMP STATION OPERATOR 05/26/2024 5:47 PM WATERWORKS PUMP STATION OPERATOR Narrative [facility] - 05/27/2024 1:24 AM WATERWORKS PUMP STATION OPERATOR This lipid panel was automatically ordered due to a significant change in Troponin. The dietary status of the patient at the collection time should be correlated with the lipid results. us Abel Mak MD LAB BLOOD ORDERABLES Maia guidry Result [facility] One [facility] Department [place] [address] * Hepatitis C (HCV) RNA PCR, quantitative Blood (04/17/2024 6:26 PM WATERWORKS PUMP STATION OPERATOR) HCV RNA result Not Detected [facility] Comment: The quantifiable range of this assay is 15 IU/mL to 100,000,000 IU/mL (1.18 log IU/mL to 8.00 log IU/mL). Testing was performed by the ILEANA 6800 HCV Test ([employer] Testing performed at [facility] Current Interpretive Data was last revised on 2021 Blood 04/17/2024 6:26 PM WATERWORKS PUMP STATION OPERATOR 04/17/2024 6:46 PM WATERWORKS PUMP STATION OPERATOR Olinda Harrell MD LAB MICROBIOLOGY - GENE RAL ORDERABLES Final Result SILVESTRENER [facility] One [facility] Department [place] [address] [facility] * COLONOSCOPY REPORT (10/16/2013) Anatomical Region [...] 08/24/2024 VRE 08/24/2024 08/24/2024 Insurance [facility] MEDICARE MEDICARE RESEARCH [facility] MEDICARE MEDICARE [facility] AETNA MEDICARE MEDICARE RESEARCH AETNA MEDICARE Advance Directives For more information, please contact: [phone] Documents on File Type Date Recorded Patient Category Director Expl anation ADVANCE DIRECTIVE 12/07/2012 12:00 AM EVIE LAMBERT WILL ADVANCE DIRECTIVE 12/07/2012 12:00 AM JIMENA R OF LOFT RIGGER FINANCIAL/MEDICAL * Full Code (Latest Code Status [...] 3:02 PM 04/02/2023 5:36 PM Care Teams Select Banker Relationship Specialty Start Date End Date Tika Araujo MD PCP - General Nurse Practitioner 03/27/20 Americo Mcneil MD [facility] [id number] [place] [address] PCP - Home Infusion Attending Infectious Diseases 10/15/24 Suresh Verma MD Chief Nursing Officer Transplant 09/16/18 Pao Allen, RN VAD Coordinator Transplant 03/20/19 Emmy Alicea Primary Clerical Adviser Transplant 08/14/24 Korey Warren, [facility] Pharmacist Pharmacy 10/23/24
--- OUTSIDE RECORDS SUMMARY | 2024-12-09 02:08 | XMS_ITS | Encounter Summary ---
Author Organization [facility] Address [address] [place] [address] Phone Care Team Providers Care Refrigeration Systems Installer Name Role Phone Collin John MD Primary Care Provider [phone] Prasanna Newton DO Primary Care Provider [phone] Marietta Carroll RN Unavailable Jacque Suresh Miller MD Unavailable [phone] Pao Allen RN Unavailable [phone] Tika Araujo MD Primary Care Provider [phone] Tika Araujo MD Primary Care Provider [phone] Emmy Alicea Unavailable Unavailable Americo Mcneil MD Unavailable [phone] Korey Warren [facility] Unavailable Unavail able Encounter Details Date Type Department Care Team (Late st Contact Info) Description 01/15/2015 Orders Only [facility] ProviderCrys MD [address] [place] [address] Social History Tobacco Use Types Packs/Day Years Used Date Smoking Tobacco: Never Alcohol Use Standard Drinks/Week Comments No 0 (1 standard drink = 0.6 oz pur e alcohol) Sex and Gender Information Value Date Recorded Sex Assigned at Not on file Legal Sex Male 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 Gender Identity Not on file Sexual [...] documented as of this encounter Care Teams Refrigeration Systems Installer Relationship Specialty Start Date End Date Collin John MD [address] [address] PCP - General 07/13/16 02/24/20 Prasanna Newton DO [address] [address] PCP - General 06/07/06 07/12/16 Tika Araujo MD PCP - General Nurse Practitioner 03/27/20 Tika Araujo MD PCP - General 02/25/20 03/26/20 Americo Mcneil MD [address] [facility] [id number] [place] [address] PCP - Home Infusion Attending Infectious Diseases 10/15/24 Marietta Carroll, SANKET Registered Nurse Lab Head 10/31/17 03/20/19 Suresh Verma MD Accounting Consultant Transplant 09/16/18 Pao Allen, RN VAD Coordinator Transplant 03/20/19 Emmy Alicea Primary Entry Level Mechanical Engineer Transplant 08/14/24 Korey Warren [facility] Pharmacist Pharmacy 10/23/24 documented as of this encounter
--- OUTSIDE RECORDS SUMMARY | 2024-12-09 02:08 | XMS_ITS | Encounter Summary ---
Author Organization [facility] Address [address] [place] [address] Phone Care Team Providers Care Individual Small Group Instructor Name Role Phone oCllin John MD Primary Care Provider [phone] Prasanna Newton DO Primary Care Provider [phone] Marietta Carroll RN Unavailable Jacque Suresh Miller MD Unavailable [phone] Pao Allen RN Unavailable [phone] Tika Araujo MD Primary Care Provider [phone] Tika Araujo MD Primary Care Provider [phone] Emmy Alicea Unavailable Unavailable Americo Mcneil MD Unavailable [phone] Korey Warren [facility] Unavailable Unavail able Encounter Details Date Type Department Care Team (Late st Contact Info) Description 03/01/2016 Orders Only [facility] Provider, MD Crys [address] [place] [address] Social History Tobacco Use Types Packs/Day Years Used Date Smoking Tobacco: Never Alcohol Use Standard Drinks/Week Comments No 0 (1 standard drink = 0.6 oz pur e alcohol) Sex and Gender Information Value Date Recorded Sex Assigned at Not on file Legal 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 Gender Identity Not on file Sexual Orientation [...] documented as of this encounter Care Teams Individual Small Group Instructor Relationship Specialty Start Date End Date Collin John MD [address] [place] [address] PCP - General 07/13/16 02/24/20 Prasanna Newton DO [address] [place] [address] PCP - General 06/07/06 07/12/16 Tika Araujo MD PCP - General Nurse Practitioner 03/27/20 Tika Araujo MD PCP - General 02/25/20 03/26/20 Americo Mcneil MD [address] [facility] [phone] [place] [address] PCP - Home Infusion Attending Infectious Diseases 10/15/24 Marietta Carroll, SANKET Registered Nurse Manager Floor 10/31/17 03/20/19 Suresh Verma MD Pediatric Immunologist Transplant 09/16/18 Pao Allen, RN VAD Coordinator Transplant 03/20/19 Emmy Alicea Primary Senior Asic Engineer Transplant 08/14/24 Korey Warren [facility] Pharmacist Pharmacy 10/23/24 documented as of this encounter
[2024-12-09 02:12] VITALS: BP 170/100; PULSE 69; RESP 12; TEMP 36.8; O2SAT 100
[2024-12-09 02:22] VITALS: RESP 12; O2SAT 100
--- NOTE | 2024-12-09 02:25 | ECG_ITS ---
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
--- OUTSIDE RECORDS SUMMARY | 2024-12-09 02:31 | XMS_ITS | Encounter Summary ---
Author Organization [facility] Healthcare Address [address] [place] [address] Care Team Providers Care Cargo Worker Name Role Phone Suresh Verma MD Unavailable [phone] Pao Allen RN Unavailable [phone] Tika Araujo MD Primary Care Provider [phone] Emmy Alicea Unavailable Unavailable Americo Mcneil MD Unavailable [phone] Korey Warren [facility] Unavailable Unavail able Encounter Details Date Type Department Care Team (Late st Contact Info) Description 12/08/2024 Telephone [facility] Transplant Heart [address] [facility] [address] [place] [address] Courtney Bonilla, SANKET [address] [facility] [address] [place], [place] [id number] Social History Tobacco Use Types Packs/Day Years Used Date Smoking Tobacco: Never Passive Smoke Exposure: Never Smokeless Tobacco: Never Alcohol Use Standard Drinks/Week Comments No 0 (1 standard drink = 0.6 oz pur e alcohol) [facility] Utilities Answer Date Recorded In the past 12 months has [employer], gas, oil, or water company threatened [...] often do you attend chur ch or bahai services? More than 4 times per year 08/25/2024 Do you belong to any clubs o r organizations such as synagogue groups, unions, fraternal or athletic groups, or [...] place to sleep or slept in a nursing home (including now)? Patient refused 03/23/2023 Housing [...] any time in the past 12 m [facility], were you homeless or living in a nursing home (including now)? No 08/25/2024 Personal Safety Answer Date Recorded Have you ever been in or are you currently in a harmful physical or emotional relationship or is someone making you feel afraid or unsafe? Denies 08/23/2024 Sex and Gender Information Value Date Recorded Sex Assigned at Not on file Legal Sex Male 12:11 AM ENTOMOLOGY PROFESSOR Gender Identity Not on file Sexual Orientation Not on file documented as of this encounter Miscellaneous Notes * Telephone Encounter - Courtney Bonilla, RN - 12/08/2024 8:14 PM CDT scallop shucker coordinator received phone call today at 5:45 [...] Pt states he plans to call the combiner to ask about medications and if the [...] documented as of this encounter Care Teams Cargo Worker Relationship Specialty Start Date End Date Tika Araujo MD PCP - General Nurse Practitioner 03/27/20 Americo Mcneil MD [address] [phone] [place] [address] PCP - Home Infusion Attending Infectious Diseases 10/15/24 Suresh Verma MD Slide Fastener Chain Assembler Transplant 09/16/18 Pao Allen, RN VAD Coordinator Transplant 03/20/19 Emmy Alicea Primary Pack Operator Transplant 08/14/24 Korey Warren [facility] Pharmacist Pharmacy 10/23/24 documented as of this encounter
--- OUTSIDE RECORDS SUMMARY | 2024-12-09 02:31 | XMS_ITS | Encounter Summary ---
Author Organization [facility] Address [address] [place] [address] Phone Care Team Providers Care Provider Relations Rep Name Role Phone Suresh Verma MD Unavailable Pao Allen RN Unavailable [phone] Tika Araujo MD Primary Care Provider [phone] Emmy Alicea Unavailable Unavailable Americo Mcneil MD Unavailable [phone] Korey Warren [facility] Unavailable Unavail able Encounter Details Date Type [...] on file Legal Sex Male 12:11 AM FOOD AND NUTRITION PROFESSOR Gender Identity Not on file Sexual [...] documented as of this encounter Care Teams Provider Relations Rep Relationship Specialty Start Date End Date Tika Araujo MD PCP - General Nurse Practitioner 03/27/20 Americo Mcneil MD [address] [id number] [place] [address] PCP - Home Infusion Attending Infectious Diseases 10/15/24 Suresh Verma MD Batch Trucker Transplant 09/16/18 Pao Allen, RN VAD Coordinator Transplant 03/20/19 Nixon, Kiasha N. Primary Seal Skinner Transplant 08/14/24 Korey Warren, [facility] Pharmacist Pharmacy 10/23/24 documented as of this encounter
--- OUTSIDE RECORDS SUMMARY | 2024-12-09 02:31 | XMS_ITS | Encounter Summary ---
Author Organization [facility] Healthcare Address [address] [place] [address] Care Team Providers Care Drapery Hemmer Automatic Name Role Phone Suresh Verma MD Unavailable [phone] Pao Allen RN Unavailable [phone] Tika Araujo MD Primary Care Provider [phone] Emmy Alicea Unavailable Unavailable Americo Mcneil MD Unavailable [phone] Korey Warren [facility] Unavailable Unavail able Encounter Details Date Type Department Care Team (Late st Contact Info) Description 11/23/[address] [facility] Home Infusion Therapy [address] [place] [address] James Espinoza, [facility] Social History Tobacco Use Types Packs/Day Years Used Date Smoking Tobacco: Never Passive Smoke Exposure: Never Smokeless Tobacco: Never Alcohol Use Standard Drinks/Week Comments No 0 (1 standard drink = 0.6 oz pur e alcohol) [facility] Utilities Answer Date Recorded In the past 12 months has [employer], gas, oil, or water [employer] threatened to shut off services in your [...] often do you attend chur ch or taoism services? More than 4 times per year 08/25/2024 Do you belong to any clubs o r organizations such as anabaptist groups, unions, fraternal or athletic groups, or [...] place to sleep or slept in a jail (including now)? Patient refused 03/23/2023 Housing Stability [...] any time in the past 12 m [place], were you homeless or living in a jail (including now)? No 08/25/2024 Personal Safety Answer Date Recorded Have you ever been in or are you currently in a harmful physical or emotional relationship or is someone making you feel afraid or unsafe? Denies 08/23/2024 Sex and Gender Information Value Date Recorded Sex Assigned at Not on file Legal Sex Male 12:11 AM FIRST DYER Gender Identity Not on file Sexual Orientation [...] documented as of this encounter Care Teams Drapery Hemmer Automatic Relationship Specialty Start Date End Date Tika Araujo MD PCP - General Nurse Practitioner 03/27/20 Americo Mcneil MD [address] [phone] [place] [address] PCP - Home Infusion Attending Infectious Diseases 10/15/24 Suresh Verma MD Education Department Chair Transplant 09/16/18 Pao Allen, RN VAD Coordinator Transplant 03/20/19 Emmy Alicea Primary Snubber Transplant 08/14/24 Korey Warren, [facility] Pharmacist Pharmacy 10/23/24 documented as of this encounter
--- OUTSIDE RECORDS SUMMARY | 2024-12-09 02:31 | XMS_ITS | Encounter Summary ---
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 Gender Identity Not on file Sexual [...] documented as of this encounter Care Teams Accounting Manager Cpa Relationship Specialty Start Date End Date Tika Araujo MD PCP - General Nurse Practitioner 03/27/20 Americo Mcneil MD [address] [facility] [phone] [place] [address] PCP - Home Infusion Attending Infectious Diseases 10/15/24 Suresh Verma MD Rail Signal Designer Transplant 09/16/18 Pao Allen, RN VAD Coordinator Transplant 03/20/19 Emmy Alicea Primary Student Counsellor Transplant 3/18/25 Korey Warren, [facility] Pharmacist Pharmacy 10/23/24 documented as of this encounter
--- OUTSIDE RECORDS SUMMARY | 2024-12-09 02:31 | XMS_ITS | Encounter Summary ---
Author Organization [facility] Address [address] [place] [address] Care Team Providers Care Driver License Technician Name Role Phone Tika Araujo NP Primary Care Provider [phone] Araceli Perez MD Unavailable Lance Hernandez MD Unavailable Brendon Combs MD Unavailable [phone] Timmy Leblanc MD Unavailable [phone] Ibrahima Wade MD Unavailable [phone] Obi Sharma OD Unavailable Emilie Alva RN Unavailable [phone] Americo Mcneil MD Unavailable Suresh Verma MD Unavailable [phone] Emilie Alva RN Unavailable [phone] Tika Araujo NP Primary Care Provider [phone] Encounter Details Date Type Department Care Team (Late st Contact Info) Description 02/04/2022 Mangatart Message Enc [facility] Family Medicine - [place] [address] [facility] [address] [place], [place] [id number] Tika Araujo NP [address] [place] [address] [place] [address] follow up Social History Tobacco Use [...] Sex Assigned at Male 06/12/2024 8:20 AM NAPPING MACHINE OPERATOR Legal Sex Male 10:14 AM CDT Gender [...] Description 12/25/2024 1:00 PM CDT Office Visit [facility] Medicine - [place] [address] [place] [address] Tika Araujo NP [address] [place] [address] 01/21/2025 1:20 PM CDT Office Visit [facility] Family Medicine - [place] [address] [facility] [address] [place] [address] Tika Araujo NP [address] [place] [address] 02/13/2025 7:00 AM CDT Office Visit [facility] Orthopedic & Sports Medicine - [place] [address] [place], [place] [address] Timmy Leblanc MD [address] [place], [place] [address] documented as of this encounter Visit Diagnoses Not on filedocumented in this encounter Additional Health Concerns Assessment Noted Time PHQ-9 Depression Total Score: 4 08/19/19 22 10:34 AM CDT documented as of this encounter Care Teams Driver License Technician Relationship Specialty Start Date End Date Tika Araujo NP [address] [place] [address] PCP - General NURSE PRACTITIONER 11/28/19 01/30/24 Tika Araujo NP [address] [place] [address] PCP - General NURSE PRACTITIONER 03/14/24 [place] [address] [facility]. [address] [address] RHEUMATOLOGY 06/24/20 Lance Hernandez MD [address] [place] [id number] DERMATOLOGY 06/24/20 [place] [address] [place] [address] NEPHROLOGY 06/24/20 08/30/22 [place] [address] [place] [address] [facility] SPORTS MEDICINE 06/24/20 Ibrahima Wade MD [address] [place] [address] INTERVENTIONAL CARDIOLOGY 06/24/20 Obi Sharma, NANCI [address] [place] [address] Cost Estimating Manager 08/18/21 Emilie Alva, RN [address] [place], [place] [address] Utilization Review Specialist (Ambulatory) REGISTERED NURSE 03/05/22 04/11/22 Americo Mcneil MD [address] [place] [address] INFECTIOUS DISEASE 08/31/22 Suresh Verma MD [address] [place] [address] HEART & VASCULAR CARE 08/31/22 [place] [address] [place] [address] Utilization Review Specialist (Ambulatory) REGISTERED NURSE 03/15/23 04/18/23 documented as of this encounter
--- OUTSIDE RECORDS SUMMARY | 2024-12-09 02:31 | XMS_ITS | Encounter Summary ---
Author Organization [facility] Address [address] [place] [address] Care Team Providers Care Palletizer Operator Name Role Phone Tika Araujo NP Primary Care Provider [phone] Araceli Perez MD Unavailable Lance Hernandez MD Unavailable [phone] Timmy Leblanc MD Unavailable [phone] Ibrahima Wade MD Unavailable [phone] Obi Sharma OD Unavailable [phone] Americo Mcneil MD Unavailable [phone] Suresh Verma MD Unavailable [phone] Tika Araujo NP Primary Care Provider [phone] Encounter Details Date Type Department Care Team (Late st Contact Info) Description 05/16/2023 Reacción Message Enc [facility] Family Medicine - [place] [address] [address] [facility] Provider Lab results Social History Tobacco Use [...] Sex Assigned at Male 06/12/2024 8:20 AM COUNTER CLERK Legal Sex Male 10:14 AM CDT Gender [...] Description 12/25/2024 1:00 PM CDT Office Visit [facility] Family Medicine [place] [address] [facility] [address] [place] [address] Tika Araujo NP [address] [place] [address] 01/21/2025 1:20 PM CDT Office Visit [facility] Family Medicine - [place] [address] [place] [address] Tika Araujo NP [address] [place] [address] 02/13/2025 7:00 AM CDT Office Visit [facility] Orthopedic & Sports Medicine - [place] [address] [place] [address] Timmy Leblanc MD [address] [place] [address] documented as of this encounter Visit Diagnoses Not on filedocumented in this encounter Additional Health Concerns Assessment Noted Time PHQ-9 Depression Total Score: 4 09/01/19 23 10:59 AM CDT documented as of this encounter Care Teams Palletizer Operator Relationship Specialty Start Date End Date Tika Araujo NP [address] [place] [address] PCP - General NURSE PRACTITIONER 11/28/19 01/30/24 Tika Araujo NP [address] [place] [address] PCP - General NURSE PRACTITIONER 03/14/24 [place] [address] [facility]. [address] [address] RHEUMATOLOGY 06/24/20 Lance Hernandez MD [address] [place] [place] [address] DERMATOLOGY 06/24/20 Timmy Leblanc MD [address] [place] [address] [facility]ILY [facility] SPORTS MEDICINE 06/24/20 Ibrahima Wade MD [address] [place] [address] INTERVENTIONAL CARDIOLOGY 06/24/20 Obi Sharma, [address] [place] [address] Childbirth And Infant Care Teacher 08/18/21 Americo Mcneil MD [address] [place] [address] INFECTIOUS DISEASE 08/31/22 Suresh Verma MD [address] [place] [address] HEART & VASCULAR CARE 08/31/22 documented as of this encounter
--- OUTSIDE RECORDS SUMMARY | 2024-12-09 02:31 | XMS_ITS | Encounter Summary ---
Author Organization [facility] Address [address] [place] [address] Phone Care Team Providers Care Property Management Supervisor Name Role Phone Suresh Verma MD Unavailable [phone] Pao Allen RN Unavailable [phone] Tika Araujo MD Primary Care Provider [phone] Emmy Alicea Unavailable Unavailable Americo Mcneil MD Unavailable Korey Warren 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 Pharmacist Pharmacy 10/23/24 documented as of this encounter
--- OUTSIDE RECORDS SUMMARY | 2024-12-09 02:31 | XMS_ITS | Encounter Summary ---
Author Organization [facility] School of [facility] Address [address] [place] [address] Phone Care Team Providers Care Rand Cementer Name Role Phone Suresh Verma MD Unavailable [phone] Pao Allen RN Unavailable [phone] Tika Araujo MD Primary Care Provider [phone] Emmy Alicea Unavailable Unavailable Americo Mcneil MD Unavailable [phone] Korey Warren [facility] Unavailable Unavail able Encounter Details [...] on file Legal Sex Male 12:11 AM CERTIFICATION OFFICER Gender Identity Not on file Sexual [...] documented as of this encounter Care Teams Rand Cementer Relationship Specialty Start Date End Date Tika Araujo MD PCP - General Nurse Practitioner 03/27/20 Americo Mcneil MD [address] [facility] [phone] [place] [address] PCP - Home Infusion Attending Infectious Diseases 10/15/24 Suresh Verma MD Business Services Director Transplant 09/16/18 Pao Allen, RN VAD Coordinator Transplant 03/20/19 Emmy Alicea Primary Physical Security Engineer Transplant 3/18/25 Korey Warren, [facility] Pharmacist Pharmacy 10/23/24 documented as of this encounter
--- OUTSIDE RECORDS SUMMARY | 2024-12-09 02:31 | XMS_ITS | Encounter Summary ---
Author Organization [facility] of [facility] Address [address] [place] [address] Phone Care Team Providers Care Permit Coordinator Name Role Phone Suresh Verma MD Unavailable [phone] Pao Allen RN Unavailable [phone] Tika Araujo MD Primary Care Provider [phone] Emmy Alicea Unavailable Unavailable Americo Mcneil MD Unavailable [phone] Korey Warren [facility] Unavailable Unavail able Encounter Details Date Type Department Care Team (Late st Contact Info) Description 11/19/2024 Results Follow-Up [facility] Dermatology [address] [place] [address] [address] [place] [address] Kevin Dodd MD [address] [address] Surgical pathology Social History Tobacco Use Types Packs/Day Years Used Date Smoking Tobacco: Never Passive Smoke Exposure: Never Smokeless Tobacco: Never Alcohol Use Standard Drinks/Week Comments No 0 (1 standard drink = 0.6 oz pur e alcohol) [facility] Utilities Answer Date Recorded In the past [...] often do you attend chur ch or sabianism services? More than 4 times per year [...] any time in the past 12 m [facility], were you homeless or living in a fci (including now)? No 08/25/2024 Personal Safety Answer Date Recorded Have you ever been in or are you currently in a harmful physical or emotional relationship or is someone making you feel afraid or unsafe? Denies 08/23/2024 Sex and Gender Information Value Date Recorded Sex Assigned at Not on file Legal Sex Male 12:11 AM TIRE WORKER Gender Identity Not on file Sexual Orientation [...] documented as of this encounter Care Teams Permit Coordinator Relationship Specialty Start Date End Date Tika Araujo MD PCP - General Nurse Practitioner 03/27/20 Americo Mcneil MD [address] [id number] [place] [address] PCP - Home Infusion Attending Infectious Diseases 10/15/24 Suresh Verma MD Asian Art Curator Transplant 09/16/18 Pao Allen, RN VAD Coordinator Transplant 03/20/19 Emmy Alicea Primary Inbound Sales Manager Transplant 08/14/24 Korey Warren, [facility] Pharmacist Pharmacy 10/23/24 documented as of this encounter
--- OUTSIDE RECORDS SUMMARY | 2024-12-09 02:31 | XMS_ITS | Encounter Summary ---
Author Organization [facility] of [facility] Address [address] [place] [address] Phone Care Team Providers Care Dough Sheeter Name Role Phone Suresh Verma MD Unavailable [phone] Pao Allen RN Unavailable [phone] Tika Araujo MD Primary Care Provider [phone] Emmy Alicea Unavailable Unavailable Americo Mcneil MD Unavailable [phone] Korey Warren [facility] Unavailable Unavail able Encounter Details [...] on file Legal Sex Male 12:11 AM CERTIFIED PEDIATRIC NURSE PRACTITIONER Gender Identity Not on file Sexual Orientation [...] documented as of this encounter Care Teams Dough Sheeter Relationship Specialty Start Date End Date Tika Araujo MD PCP - General Nurse Practitioner 03/27/20 Americo Mcneil MD [address] [facility] [id number] [place] [address] PCP - Home Infusion Attending Infectious Diseases 10/15/24 Suresh Verma MD Van Helper Transplant 09/16/18 Pao Allen, RN VAD Coordinator Transplant 03/20/19 Emmy Alicea Primary Route Driver Transplant 3/18/25 Korey Warren, [facility] Pharmacist Pharmacy 10/23/24 documented as of this encounter
--- OUTSIDE RECORDS SUMMARY | 2024-12-09 02:31 | XMS_ITS | Encounter Summary ---
Author Organization [facility] of [facility] Address [address] [place] [address] Phone Care Team Providers Care Disease Intervention Specialist Name Role Phone Suresh Verma MD Unavailable [phone] Pao Allen RN Unavailable [phone] Tika Araujo MD Primary Care Provider [phone] Emmy Alicea Unavailable Unavailable Americo Mcneil MD Unavailable Korey Warren [facility] Unavailable Unavail able Encounter Details Date Type Department Care Team (Late st Contact Info) Description 11/22/2024 Telephone [facility] Cardiology [address] [facility] Advanced Medicine 8th [place] [address] [place] [address] Suresh Verma MD [address] [place] [address] Social History Tobacco Use Types Packs/Day Years Used Date Smoking Tobacco: Never Passive Smoke Exposure: Never Smokeless Tobacco: Never Alcohol Use Standard Drinks/Week Comments No 0 (1 standard drink = 0.6 oz pur e alcohol) [facility] Utilities Answer Date Recorded In the past 12 months has [employer], oil, or [employer] threatened to shut off services in your [...] often do you attend chur ch or jew services? More than 4 times per year [...] a half-way (including now)? Patient refused 03/23/2023 Housing Stability [...] were you homeless or living in a half-way (including now)? No 08/25/2024 Personal Safety Answer Date Recorded Have you ever been in or are you currently in a harmful physical or emotional relationship or is someone making you feel afraid or unsafe? Denies 08/23/2024 Sex and Gender Information Value Date Recorded Sex Assigned at Not on file Legal Sex Male 12:11 AM LOADER MACHINE Gender Identity Not on file Sexual Orientation Not on file documented as of this encounter Miscellaneous Notes * Telephone Encounter - Courtney Bonilla RN - 11/22/2024 10:51 AM CDT HH orders signed and faxed to [facility] at [phone] * Telephone Encounter - Marlene Fermin - 11/22/2024 10:24 AM CDT Bayron/Zamzam Collins with [facility] calling re: [facility] form that was sent on 11/12/24. [...] documented as of this encounter Care Teams Disease Intervention Specialist Relationship Specialty Start Date End Date Tika Araujo MD PCP - General Nurse Practitioner 03/27/20 Americo Mcneil MD [address] [phone] [place] [address] PCP - Home Infusion Attending Infectious Diseases 10/15/24 Suresh Verma MD Rodding Machine Tender Transplant 09/16/18 Pao Allen, RN VAD Coordinator Transplant 03/20/19 Emmy Alicea Primary Spectrograph Operator Transplant 08/14/24 Korey Warren [facility] Pharmacist Pharmacy 10/23/24 documented as of this encounter
--- OUTSIDE RECORDS SUMMARY | 2024-12-09 02:32 | XMS_ITS | Encounter Summary ---
Author Organization [facility] Address [address] [place] [address] Phone Care Team Providers Care Machine Carton Marker Name Role Phone Suresh Verma MD Unavailable [phone] Pao Allen RN Unavailable [phone] Tika Araujo MD Primary Care Provider [phone] Emmy Alicea Unavailable Unavailable Americo Mcneil MD Unavailable [phone] Korey Warren [facility] Unavailable Unavail [...] declined 03/23/2023 How often do you attend adventist or adventist serv ices? Patient declined 03/23/2023 Do you belong to any clubs o r organizations such as adventist groups, unions, fraternal or athletic groups, or [...] declined 03/23/2023 Housing Stability Vital Sign Answer Davdi e Recorded In the last 12 months, [...] place to sleep or slept in a retirement (including now)? Patient refused 03/23/2023 Personal Safety Answer Date Recorded Have you ever been in or are you currently in a harmful physical or emotional relationship or is someone making you feel afraid or unsafe? 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 CONSTRUCTION GRIP Gender Identity Not on file Sexual Orientation [...] documented as of this encounter Care Teams Machine Carton Marker Relationship Specialty Start Date End Date Tika Araujo MD PCP - General Nurse Practitioner 03/27/20 Americo Mcneil MD [address] [facility] [phone] [place] [address] PCP - Home Infusion Attending Infectious Diseases 10/15/24 Suresh Verma MD Shake Backboard Notcher Transplant 09/16/18 Pao Allen, RN VAD Coordinator Transplant 03/20/19 Emmy Alicea Primary Patient Insurance Clerk Transplant 08/14/24 Korey Warren [facility] Pharmacist Pharmacy 10/23/24 documented as of this encounter
--- OUTSIDE RECORDS SUMMARY | 2024-12-09 02:32 | XMS_ITS | Encounter Summary ---
Author Organization [facility] Address [address] [place] [address] Phone Care Team Providers Care Teacher Vocal Name Role Phone Suresh Verma MD Unavailable [phone] Pao Allen RN Unavailable [phone] Tika Araujo MD Primary Care Provider [phone] Emmy Alicea Unavailable Unavailable Americo Mcneil MD Unavailable [phone] Korey aWrren [facility] Unavailable Unavail able Reason for Visit * Reason Onset Date Comments OPAT 05/17/2022 Encounter Details Date Type Department Care Team (Late st Contact Info) Description 05/17/2022 Telephone [facility] Infectious Diseases [address] [place] [address] Sherman Sanchez, Paolo OPAT Social History [...] on file Legal 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 Gender Identity Not on file Sexual Orientation [...] documented as of this encounter Care Teams Teacher Vocal Relationship Specialty Start Date End Date Tika Araujo MD PCP - General Nurse Practitioner 03/27/20 Americo Mcneil MD [address] [phone] [place] [address] PCP - Home Infusion Attending Infectious Diseases 10/15/24 Suresh Verma MD Grade And Center Marker Transplant 09/16/18 Pao Allen, RN VAD Coordinator Transplant 03/20/19 Emmy Alicea Primary Mortuary Operations Manager Transplant 08/14/24 Korey Warren [facility] Pharmacist Pharmacy 10/23/24 documented as of this encounter
--- OUTSIDE RECORDS SUMMARY | 2024-12-09 02:32 | XMS_ITS | Referral Summary ---
Author Organization [facility] Virtual Care Address [address] [place] [address] Phone Care Team Providers Care Barber Tool Sharpener Name Role Phone Suresh Verma MD Unavailable [phone] Pao Allen RN Unavailable [phone] Tika Araujo MD Primary Care Provider [phone] Emmy Alicea Unavailable Unavailable Americo Mcneil MD Unavailable [phone] Korey Warren [facility] Unavailable Unavail able Encounters Date Type Department Care Team Description 12/08/2024 Telephone [facility] Transplant Heart [address] [facility] [address] Mailop 07-36-821 [place] [address] Courtney Bonilla, SANKET 12/06/2024 Anticoagulation Telephone Call [facility] Transplant Heart [address] [facility] Mailstop 63-57-305 [place] [address] Pao Allen, SANKET 12/06/2024 10:45 AM CDT Lab [facility] [address] [place] [address] LVAD (left ventricular assist device) present ([facility]) 12/06/2024 10:30 AM CDT Lab [facility] [address] [place] [address] Screen for sexually transmitted diseases; Eosinophilia, unspecified type; 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 12/06/2024 Documentation [facility] Infectious Diseases [address] [place] [phone] Shanelle Sanches RN 12/06/2024 Orders Only [facility] Infectious Diseases [address] [place] [phone] Shanelle Sanches RN 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) 12/06/2024 10:00 AM CDT Office Visit [facility] Infectious Diseases [facility] Office Building [address] [place] [phone] Americo Mcneil MD 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); Encounter for long-term (current) use of antibiotics; Eosinophilia, unspecified type; Screen for sexually transmitted diseases; Disorder 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); LVAD (left ventricular assist device) present ([facility]) 12/04/2024 Telephone [facility] Infectious Diseases [address] [place] [address] Office Building [address] [place] [phone] Americo Mcneil MD 12/04/2024 Telephone [facility] Infectious Diseases [address] [place] [address] [place] [phone] Alia Espinoza 12/04/2024 11:00 AM CDT Procedure visit [facility] Dermatology [address] [facility] [address] [place] [phone] Kevin Dodd MD Squamous cell carcinoma of forehead (Primary Dx); AK (actinic keratosis) 12/03/2024 Telephone [facility] [address] [place] [address] Katrin Veloz RN 12/03/2024 Documentation [facility] Infectious Diseases [address] [place] [address] [address] [place] [address] Shanelle Sanches, SANKET 12/03/2024 Orders Only [facility] Infectious Diseases [address] [facility] 100 [place] [phone] Shanelle Sanches, SANKET 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) 11/27/2024 Anticoagulation Telephone Call [facility] Transplant Heart [address] [place] [address] [address] Mailstop -81-946 [place] [address] Pao Allen RN 11/26/2024 Telephone [facility] Infectious Diseases [address] [place] [phone] Alia Espinoza 11/23/2024 Home Infusion [facility] [address] [place] [address] James Espinoza, [facility] 11/22/2024 Telephone [facility] Cardiology [address] [place] [address] Advanced Medicine 8th [place] [address] [place] [address] Suresh Verma MD 11/21/2024 Telephone [facility] Infectious Diseases [address] [place] [phone] Americo Mcneil MD 11/21/2024 Anticoagulation Telephone Call [facility] Transplant Heart [address] [place] [address] [address] Mailstop -48-004 [place] [address] Courtney Bonilla RN 11/20/2024 Telephone [facility] Cardiology [facility] Advanced Medicine 8th [place] [address] [place] [address] Suresh Wyman MD PhD 11/20/2024 Telephone [facility] Transplant Heart [address] [place] [address] 34[address] Mailstop -44-686 [place] [address] Isaiah Miranda 11/20/2024 Home Infusion [facility] [address] [place] [address] Lorraine Bloom 11/19/2024 Telephone [facility] Infectious Diseases [address] [facility] [address] [place] [address] Alia Espinoza 11/19/2024 Telephone [facility] Infectious Diseases [address] [facility] [address] [place] [address] Alia Espinoza 11/19/2024 Results Follow-Up [facility] Dermatology [address] [facility] [address] [place] [phone] Kevin Dodd MD Surgical pathology 11/13/2024 Anticoagulation Telephone Call [facility] Transplant Heart [address] [place] [address] 34[address] Mailstop 09-31-280 [place] [address] Pao Allen RN 11/13/2024 Orders Only [facility] [address] [place] [address] Kevin Dodd MD Neoplasm of unspecified behavior of bone, soft tissue, and skin 11/12/2024 Telephone [facility] Cardiology [address] [facility] Medicine 8th [place] [address] [place] [phone] Suresh Verma MD 11/12/2024 10:30 AM CDT Office Visit [facility] Dermatology [address] [facility] [address] [place] [phone] Kevin Dodd MD Neoplasm of unspecified behavior of bone, soft tissue, and skin (Primary Dx); Postop check 11/11/2024 Telephone [facility] Transplant Heart [address] [place] [address] [address] Mailstop 60-88-348 [place] [address] Pao Allen, RN LVAD Equipment Replacement (EBB) 11/10/2024 Telephone [facility] Transplant Heart [address] [place] [address] [address] Mailstop 32-15-020 [place] [address] Pao Allen RN 11/06/2024 Anticoagulation Telephone Call [facility] Transplant Heart [address] [place] [address] 34[address] Mailstop 76-01-391 [place] [address] Pao Allen, RN 11/02/2024 Anticoagulation Telephone Call [facility] Transplant Heart [address] [place] [address] [address] Mailstop 68-85-634 [place] [address] Pao Allen, RN 10/25/2024 Documentation [facility] Infectious Diseases [address] [facility] [address] [place] [phone] Shanelle Sanches RN 10/25/2024 Orders Only [facility] Transplant Heart [address] [place] [address] [address] Mailop 75-30-690 [place] [address] Pao Allen, SANKET 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) 10/25/2024 10:00 AM CDT Office Visit [facility] Cardiology [address] [place] [address] Office [address] [place] [phone] Ischemic cardiomyopathy (Primary Dx); Chronic systolic heart failure (HCC); Transaminitis; LVAD (left ventricular assist device) present ICM, end-stage systolic CHF s/p HM3 (2015) 10/25/2024 9:20 AM CDT Office Visit [facility] Infectious Diseases [address] [place] [address] Office Building [address] [place] [phone] Americo Mcneil MD 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); Eosinophilia, unspecified type 10/23/2024 Anticoagulation Telephone Call [facility] Transplant Heart [address] [place] [address] [address] Mailop 96-11-997 [place] [address] Pao Allen, RN 10/23/2024 Home Infusion [facility] [address] [place] [address] Edwina Robb [facility] Infection and inflammatory reaction due to cardiac device, implant, and graft, sequela (Primary Dx); Bacterial intestinal infection; Presence of heart assist device (HCC) 10/18/2024 Orders Only [facility] Home Care Services [address] [place] [address] Drive [address] [place] [address] Korey Warren [facility] 10/18/2024 Telephone [facility] Transplant Heart [address] [facility] [address] Mailstop -67-271 [place] [address] Steffany Reyes 10/15/2024 Orders Only [facility] Home Care Services [address] [facility] [address] [place] [address] Korey Warren, [facility] 10/15/2024 11:00 AM CDT Procedure visit [facility] Dermatology 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; Basal cell carcinoma (BCC) of left side of neck 10/12/2024 Telephone [facility] Infectious Diseases [address] [facility] [address] [place] [phone] Shanelle Sanches, SANKET 10/11/2024 Anticoagulation Telephone Call [facility] Transplant Heart [address] [place] [address] 3401 Mailstop -78-648 [place] [address] Pao Allen, RN 10/11/2024 Documentation [facility] Infectious Diseases [address] [facility] [address] [place] [phone] Shanelle Sanches, SANKET 10/04/2024 Telephone [facility] Transplant Heart [address] [facility] [address] Mailstop -00-308 [place] [address] Faby Macdonald 10/02/2024 Anticoagulation Telephone Call [facility] Transplant Heart [address] [facility] [address] Mailstop 90-83-393 [place] [address] Pao Allen, RN 10/02/2024 Telephone [facility] Transplant Heart [address] [facility] [address] Mailstop -26-033 [place] [address] Karoline Álvarez 10/01/2024 Telephone [facility] Infectious Diseases [address] [facility] [address] [place] [address] Destinee Peraza JUS 10/01/2024 Telephone [facility] Dermatology [address] [facility] [address] [place] [phone] Tin Pinedo PA 09/28/2024 Telephone [facility] Home Care Services [address] [facility] [address] [place] [phone] Korey Warren [facility] 09/28/2024 Results Follow-Up [facility] Dermatology [address] [facility] [address] [place] [phone] Tin Pinedo PA Surgical pathology 09/27/2024 Documentation [facility] Infectious Diseases [address] [facility] [address] [place] [phone] Thelma Desai Lab Results 09/26/2024 Orders Only [facility] [address] [place] [address] Tin Pinedo PA Neoplasm of skin 09/25/2024 Telephone [facility] Infectious Diseases [address] [facility] Medical Office Building 3 [address] [place] [address] Americo Mcneil MD 09/25/2024 2:45 PM CDT Office Visit [facility] Dermatology [address] [facility] [address] [place] [phone] Tin Pinedo PA Actinic keratosis (Primary Dx); Neoplasm of skin; Inflamed seborrheic keratosis; Multiple benign nevi; Seborrheic keratosis; Seborrheic dermatitis; History of nonmelanoma skin cancer 09/24/2024 Anticoagulation Telephone Call [facility] Transplant Heart [address] [place] [address] [address] [place] [address] Estrella Arvizu RN 09/24/2024 Telephone [facility] Transplant Heart [address] Mailstop 26-86-414 [place] [address] LoradarleneKaroline 09/21/2024 Telephone [facility] Transplant Heart [address] [facility] [address] Mailstop 22-67-946 [place] [address] LoradarleneKaroline 09/21/2024 Telephone [facility] Infectious Diseases [address] [facility] [address] [place] [phone] Destinee Peraza RMA 09/20/2024 Documentation [facility] Infectious Diseases [address] [facility] [address] [place] [phone] Thelma Desai Progress/Monitoring 09/20/2024 1:52 PM CDT - 09/20/2024 11:59 PM CDT Hospital Encounter [facility] [address] [facility] [address] [place] [phone] Left knee pain, unspecified chronicity Discharge Disposition: Discharge to home or self care 09/20/2024 2:30 PM CDT Office Visit [facility] Orthopaedic Surgery [address] [facility] Medical Office Building [address] [place] [phone] Tammy Zavala PA Primary osteoarthritis of left knee (Primary Dx); Knee effusion, left 09/18/2024 Anticoagulation Telephone Call [facility] Transplant Heart [address] [facility] [address] Mailstop 71-73-837 [place] [address] Pao Allen RN 09/17/2024 Telephone [facility] Infectious Diseases [address] [facility] [address] [place] [phone] Indiana Guerrero CMA 09/14/2024 Orders Only [facility] Home Care Services [address] [facility] [address] [place] [address] Ashlie Jorge [facility] 09/11/2024 Documentation [facility] Infectious Diseases [address] [facility] [address] [place] [phone] Thelma Desai Progress/Monitoring 09/11/2024 Anticoagulation Telephone Call [facility] Transplant Heart [address] [facility] [address] Mailstop 32-73-624 [place] [address] Pao Allen RN 09/10/2024 Telephone [facility] Transplant Heart [address] [facility] [address] Mailstop 38-11-224 [place] [address] Isaiah Miranda from Last 3 Months Allergies [...] mL IV as needed for line care 94686 mL 025 2025 Active heparin 100 unit/mL syringeIndicati ons:Bacterial intestinal infection,Infec tion and inflammatory reaction due to cardiac device, implant, and graft, sequela,Presenc e of heart assist device (HCC) Infuse 5 mL (500 Units total) IV as needed (line care) 09439 mL 025 2025 Active dextrose 5 % [...] bid Assessment & Plan (05/27/2024 2:51 AM VAMP PRESSER): -Home regimen: Entresto, coreg and imdur. -hold these iso orthostasis; re-introduce as tolerated Orthostasis 05/27/2024 Assessment & Plan (05/27/2024 5:39 AM VAMP PRESSER): Presented with orthostatic symptoms while at home [...] 05/27/2024 Assessment & Plan (06/05/2024 11:44 AM VAMP PRESSER): Admitted with BRBPR and near syncope, Hgb [...] sigmoidoscopy. Assessment & Plan (06/04/2024 11:42 AM VAMP PRESSER): Admitted with BRBPR and near syncope, Hgb [...] sigmoidoscopy. Assessment & Plan (06/03/2024 8:04 AM VAMP PRESSER): Admitted with BRBPR and near syncope, Hgb [...] sigmoidoscopy. Assessment & Plan (06/01/2024 11:39 AM VAMP PRESSER): Admitted with BRBPR and near syncope, Hgb [...] sigmoidoscopy. Assessment & Plan (05/31/2024 9:25 AM VAMP PRESSER): Admitted with BRBPR and near syncope, Hgb [...] CBCs Assessment & Plan (05/27/2024 12:05 PM VAMP PRESSER): C/O BRBPR admitted with near syncope, admit Hgb 11.6, INR 2.4 -serial CBC -BID PPI -guaiac stools -hold ASA and warfarin pending Hgb trend -consider GI consult when INR down Assessment & Plan (05/27/2024 5:33 AM VAMP PRESSER): After admission; overnight patient had episode of [...] inpatient Assessment & Plan (06/05/2024 11:44 AM VAMP PRESSER): Home regimen: Lantus 30units nightly and Lispro SSI -HgbA1c 6.8 -BG currently controlled -Continue dose reduced Lantus 26 units nightly, Lispro 6 units TID with meals + SSI -Carb consistent diet -Accuchecks Assessment & Plan (06/04/2024 11:41 AM VAMP PRESSER): Home regimen: Lantus 30units nightly and Lispro SSI -HgbA1c 6.8 -BG currently controlled -Continue dose reduced Lantus 26 units nightly, Lispro 6 units TID with meals + SSI -Carb consistent diet -Accuchecks Assessment & Plan (06/03/2024 8:03 AM VAMP PRESSER): Home regimen: Lantus 30units nightly and Lispro SSI -HgbA1c 6.8 -BG currently controlled -Continue dose reduced Lantus 26 units nightly, Lispro 6 units TID with meals + SSI -Carb consistent diet -Accuchecks Assessment & Plan (06/01/2024 11:40 AM VAMP PRESSER): Home regimen: Lantus 30units nightly and Lispro SSI -HgbA1c 6.8 -BG currently controlled -Continue dose reduced Lantus 26 units nightly, Lispro 6 units TID with meals + SSI -Carb consistent diet -Accuchecks Assessment & Plan (05/31/2024 9:30 AM VAMP PRESSER): Home regimen: Lantus 30units nightly and Lispro SSI -HgbA1c 6.8 -BG currently controlled -Continue dose reduced Lantus 26 units nightly, Lispro 6 units TID with meals + SSI -Carb consistent diet -Accuchecks Assessment & Plan (05/27/2024 9:58 AM VAMP PRESSER): Home regimen includes lantus 30 IU nightly and lispro SSI HgbA1c 6.8 -dose reduce lantus, add meal time lispro insulin Hypomagnesemia 05/27/2024 Assessment & Plan (06/03/2024 8:04 AM VAMP PRESSER): S/p IV repletion this admission, continue to check and treat as needed Assessment & Plan (05/27/2024 12:04 PM VAMP PRESSER): Mg 1.3 -replete with PO and IV -recheck tomorrow History of left ventricular assist device (LVAD) 05/26/2024 Assessment & Plan (06/05/2024 11:44 AM VAMP PRESSER): ICM with HFrEF s/p COLD STORAGE WORKER-D 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) admitted with near [...] weights Assessment & Plan (06/04/2024 11:42 AM VAMP PRESSER): ICM with HFrEF s/p COLD STORAGE WORKER-D 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) admitted with near [...] weights Assessment & Plan (06/03/2024 8:04 AM VAMP PRESSER): ICM with HFrEF s/p COLD STORAGE WORKER-D 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) admitted with near [...] weights Assessment & Plan (06/01/2024 11:30 AM VAMP PRESSER): ICM with HFrEF s/p COLD STORAGE WORKER-D 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) admitted with near [...] weights Assessment & Plan (05/31/2024 9:45 AM VAMP PRESSER): ICM with HFrEF s/p COLD STORAGE WORKER-D 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) admitted with near [...] weights Assessment & Plan (05/27/2024 12:13 PM VAMP PRESSER): ICM with HFrEF S/P COLD STORAGE WORKER-D and DT-HM3 (03/2015) admitted with near syncope [...] weights Assessment & Plan (05/27/2024 5:34 AM VAMP PRESSER): CM with HFrEF S/P COLD STORAGE WORKER-D and DT-HM3 (03/2015) Hx of recurrent drive [...] 04/18/2024 Assessment & Plan (04/19/2024 12:49 PM VAMP PRESSER): RUQ/ Right flank pain associated with nausea [...] control. Assessment & Plan (04/18/2024 1:51 PM VAMP PRESSER): RUQ/ Right flank pain associated with nausea [...] control. Assessment & Plan (04/18/2024 1:38 AM VAMP PRESSER): RUQ/ Right flank pain associated with nausea [...] 04/17/2024 Assessment & Plan (04/19/2024 12:38 PM VAMP PRESSER): - have been progressively increasing lately - [...] desensitization. Assessment & Plan (04/18/2024 1:40 PM VAMP PRESSER): - have been progressively increasing lately - [...] recs. 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 Assessment & Plan (04/01/2023 12:48 [...] 08/28/2021 Assessment & Plan (05/27/2024 2:46 AM VAMP PRESSER): Improving from prior admission when minocycline switched [...] CPAP Assessment & Plan (06/05/2024 11:46 AM VAMP PRESSER): -Nightly CPAP with home unit Assessment & Plan (06/04/2024 11:43 AM VAMP PRESSER): -Nightly CPAP with home unit Assessment & Plan (06/03/2024 8:05 AM VAMP PRESSER): Nightly CPAP with home unit Assessment & Plan (06/01/2024 11:40 AM VAMP PRESSER): Nightly CPAP with home unit Assessment & Plan (05/29/2024 11:33 AM VAMP PRESSER): Nightly CPAP with home unit Assessment & Plan (05/27/2024 9:50 AM VAMP PRESSER): Nightly CPAP with home unit Assessment & Plan (05/27/2024 1:34 AM VAMP PRESSER): - continue CPAP Assessment & Plan (04/19/2024 12:49 PM VAMP PRESSER): Continue with CPAP Assessment & Plan (04/18/2024 1:45 PM VAMP PRESSER): Continue with CPAP Assessment & Plan (04/18/2024 2:03 AM VAMP PRESSER): CW CPAP Assessment & Plan (04/02/2023 8:42 [...] 10/22/2020 Assessment & Plan (06/05/2024 11:46 AM VAMP PRESSER): -BMI 34, encourage weight loss Assessment & Plan (06/03/2024 8:05 AM VAMP PRESSER): BMI 34, encouraged weight loss Assessment & Plan (05/27/2024 7:50 AM VAMP PRESSER): BMI 34, encouraged weight loss Assessment & [...] 06/14/2018 Assessment & Plan (06/05/2024 11:42 AM VAMP PRESSER): Pt c/o chest pain x 3 days relieved with SL nitro. -hx CABG and PCI in past -slightly elevated troponin, continue to trend -EKG unremarkable -increase imdur to 60mg daily -continue coreg, hold ASA 2/2 GIB, previously discontinued statin 2/2 elevated LFT -denies CP since admit Assessment & Plan (06/04/2024 11:36 AM VAMP PRESSER): Pt c/o chest pain x 3 days relieved with SL nitro. -hx CABG and PCI in past -slightly elevated troponin, continue to trend -EKG unremarkable -increase imdur to 60mg daily -continue coreg, hold ASA 2/2 GIB, previously discontinued statin 2/2 elevated LFT -denies CP since admit Assessment & Plan (06/03/2024 8:00 AM VAMP PRESSER): Pt c/o chest pain x 3 days relieved with SL nitro. -hx CABG and PCI in past -slightly elevated troponin, continue to trend -EKG unremarkable -increase imdur to 60mg daily -continue coreg, hold ASA 2/2 GIB, previously discontinued statin 2/2 elevated LFT -denies CP since admit Assessment & Plan (05/27/2024 12:21 PM VAMP PRESSER): Pt c/o chest pain x 3 days [...] diuretics Assessment & Plan (08/02/2019 9:43 AM VAMP PRESSER): -chronic systolic end stage heart failure -exam [...] -tele Assessment & Plan (08/01/2019 12:24 PM VAMP PRESSER): -chronic systolic end stage heart failure -exam appears euvolemic and LVAD appears to be functioning appropriately -suspect that presenting CP 2/2 poorly controlled BP -continue asa/losartan and coreg/nitrate doses increased -add home torsemide for improved BP control -2D echo pending -continue low sodium diet -tele Assessment & Plan (07/31/2019 4:15 PM VAMP PRESSER): Appears euvolemic on exam Admitted with elevated [...] therapy on April 12, 2015 for underlying [place] [employer] class IV heart failure Assessment & Plan (08/31/2024 8:44 AM CDT): ICM with HFrEF S/P COLD STORAGE WORKER-D and DT-HM3 (03/2015) admitted with BRBPR. Hemodynamically [...] -cont suppressive abx for hx driveline infection -PT/OT/clinical nutritionist -tele monitoring Assessment & Plan (08/30/2024 1:39 PM CDT): ICM with HFrEF S/P COLD STORAGE WORKER-D and DT-HM3 (03/2015) admitted with BRBPR. Hemodynamically [...] -cont suppressive abx for hx driveline infection -PT/OT/clinical nutritionist -tele monitoring Assessment & Plan (08/29/2024 9:09 AM CDT): ICM with HFrEF S/P COLD STORAGE WORKER-D and DT-HM3 (03/2015) admitted with BRBPR. Hemodynamically stable, appears euvolemic and denies VAD alarms. INR 2.24 on admission. -held warfarin for GIB, INR now 1.48, restarting warfarin with heparin bridge -warfarin 5mg tonight then 4mg daily -stopped asa -cont entresto, coreg, imdur -cont suppressive abx for hx driveline infection -PT/OT/clinical nutritionist -tele monitoring Assessment & Plan (08/26/2024 12:36 PM CDT): ICM with HFrEF S/P COLD STORAGE WORKER-D and DT-HM3 (03/2015) admitted with BRBPR. Hemodynamically stable, appears euvolemic and denies VAD alarms. INR 2.24 on admission. -hold warfarin for GIB -cont entresto, coreg, imdur -cont suppressive abx for hx driveline infection -tele monitoring Assessment & Plan (08/24/2024 10:44 AM CDT): ICM with HFrEF S/P COLD STORAGE WORKER-D and DT-HM3 (03/2015) admitted with BRBPR. Hemodynamically [...] 2:53 AM CDT): ICM with HFrEF S/P COLD STORAGE WORKER-D and DT-HM3 (03/2015) admitted with BRBPR. Hemodynamically stable, appears euvolemic and denies VAD alarms. INR 2.24 on admission. 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 -tele monitoring Assessment & Plan (04/19/2024 12:46 PM VAMP PRESSER): ICM with HFrEF S/P COLD STORAGE WORKER-D and DT-HM3 (03/2015) Hx of recurrent drive [...] diet Assessment & Plan (04/18/2024 1:45 PM VAMP PRESSER): ICM with HFrEF S/P COLD STORAGE WORKER-D and DT-HM3 (03/2015) Hx of recurrent drive [...] diet Assessment & Plan (04/18/2024 3:54 AM VAMP PRESSER): ICM with HFrEF S/P COLD STORAGE WORKER-D and DT-HM3 (03/2015) Hx of recurrent drive [...] BP not improved with IVF will need DOG BEAUTICIAN -strict I/Os, daily standing weights -tele Assessment [...] 12:01 PM CDT): [facility] March 2015 -LVAD functioning appropriately, no alarms -acute on chronic systolic HF with VENU and elevated LFTs -treated with IV lasix with improvement -transitioned back to home torsemide -INR 1.8, will increase warfarin to 6mg daily except Sun/Mon 5mg (home regimen) -continue home carvedilol, hydralazine, isordil, ASA, atorvastatin -I&Os, daily weights, telemetry Assessment & Plan (09/01/2021 9:21 AM CDT): [facility] March 2015 -LVAD functioning appropriately, no alarms -acute on chronic systolic HF with VENU and elevated LFTs -treated with IV lasix with improvement -transition back to home torsemide -INR down to 1.7; will give extra dose warfarin this morning -continue warfarin -continue home carvedilol, hydralazine, isordil, ASA, atorvastatin -I&Os, daily weights, telemetry Assessment & Plan (08/31/2021 3:38 PM CDT): [facility] March 2015 -LVAD functioning appropriately, no alarms [...] 1:53 PM CDT): [facility] March 2015 -LVAD functioning appropriately, no alarms -appears near euvolemic on exam -INR supratherapeutic, hold warfarin tonight -continue home carvedilol, hydralazine, isordil, ASA, atorvastatin -I&Os, daily weights, telemetry Assessment & Plan (08/27/2021 11:55 AM CDT): [facility] March 2015 LVAD functioning appropriately, no alarms [...] 10:29 AM CDT): [facility] March 2015 LVAD functioning appropriately, no alarms -appears euvolemic on exam -hold home diuretics for now (torsemide 20mg daily) -INR therapeutic at 2.2 (goal 2-3) -continue home warfarin regimen: 4mg SMWF, 5mg TTS -continue home carvedilol, hydralazine, isordil -continue home ASA 325mg daily, atorvastatin -I&Os, daily weights, telemetry -complication management as above Assessment & Plan (08/24/2021 2:27 PM CDT): [facility] March 2015 LVAD functioning appropriately, no alarms [...] 2-3) Increase Warfarin to 7mg Monitor on compressor operator portable I/Os, daily weights Assessment & Plan (10/23/2020 [...] 325 Assessment & Plan (07/31/2019 4:13 PM VAMP PRESSER): Patient was implanted in March 2015 as [...] INR checks. Cardiac resynchronization th erapy defibrillator (COLD STORAGE WORKER-D) in place 12/30/2017 Overview (12/21/2021): Reached EoL in 2017 - elected NOT to generator change VT (ventricular tachycardia) ([facility]) 8 Overview (12/21/2021): Occurring before LVAD implantation - none since COLD STORAGE WORKER-D device (Metronic-- implanted prior to lvad. Pt is not PPM dependent and decision made to not proceed with generator change in December 2017) Assessment & Plan (09/11/2021 10:26 AM CDT): -NSVT on telemetry -Monitor and replete electrolytes -telemetry Assessment & Plan (09/10/2021 9:31 AM CDT): nsvt noted on compressor operator portable for increase in arrythmia Keep potassium above 4 and magnesium around 2 CTM Assessment & Plan (08/02/2019 9:55 AM VAMP PRESSER): -COLD STORAGE WORKER-D device (Metronic-- implanted prior to lvad. Pt is not PPM dependent and decision made to not proceed with generator change in December 2017) -continue tele Assessment & Plan (08/01/2019 12:21 PM VAMP PRESSER): -COLD STORAGE WORKER-D device (Metronic-- implanted prior to lvad. Pt is not PPM dependent and decision made to not proceed with generator change in December 2017) -continue tele Assessment & Plan (07/31/2019 4:21 PM VAMP PRESSER): patient had COLD STORAGE WORKER-D device metronic implanted prior to lvad Is not pacemaker depenent Saw Dr. ortega from -EP clinic 12/2017 and discussion was not to proceed with generator change and patient currently has lvad And chances of arresting from life threating arrhythmia with lvad was low residential current use of anticoagulant therapy 0 06/04/2015 [...] miralax Assessment & Plan (06/05/2024 11:43 AM VAMP PRESSER): -CT scan has increase stool burden with [...] today Assessment & Plan (06/04/2024 11:40 AM VAMP PRESSER): -CT scan has increase stool burden with [...] today Assessment & Plan (06/03/2024 9:55 AM VAMP PRESSER): -CT scan has increase stool burden with [...] movements. Assessment & Plan (06/01/2024 11:39 AM VAMP PRESSER): -CT scan has increase stool burden with stool ball in sigmoid colon -S/p enema for preparation for flex sigmoidoscopy performed on 05/29 -Patient has had several BMs since but none yet today -Continue Miralax BID, senna-docusate BID and dulcolax suppository PRN -Add lactulose today Assessment & Plan (05/31/2024 9:45 AM VAMP PRESSER): -CT scan has increase stool burden with stool ball in sigmoid colon -S/p enema for preparation for flex sigmoidoscopy performed on 05/29 -Patient has had several BMs including this morning -Continue Miralax, senna-docusate and dulcolax suppository PRN Assessment & Plan (05/27/2024 2:45 AM VAMP PRESSER): - had large BM in ED - [...] baseline Assessment & Plan (06/05/2024 11:46 AM VAMP PRESSER): -Creatinine at baseline -Avoid nephrotoxins, renally dose meds as appropriate -Avoid hypotension -BMP daily Assessment & Plan (06/04/2024 11:44 AM VAMP PRESSER): -Creatinine at baseline -Avoid nephrotoxins, renally dose meds as appropriate -Avoid hypotension -BMP daily Assessment & Plan (06/03/2024 8:05 AM VAMP PRESSER): Creatinine at baseline Assessment & Plan (06/01/2024 11:40 AM VAMP PRESSER): Creatinine at baseline Assessment & Plan (05/29/2024 11:32 AM VAMP PRESSER): Creatinine at baseline Assessment & Plan (05/27/2024 7:49 AM VAMP PRESSER): Creatinine at baseline Assessment & Plan (04/19/2024 12:49 PM VAMP PRESSER): Cr at baseline CTM. Assessment & Plan (04/18/2024 1:23 PM VAMP PRESSER): Cr at baseline CTM. Assessment & Plan (04/18/2024 1:46 AM VAMP PRESSER): Cr at baseline CTM. Assessment & Plan [...] -home torsemide held in the setting of EVNU and bacteremia -continue to monitor Assessment & [...] follow Assessment & Plan (08/02/2019 9:51 AM VAMP PRESSER): Stage 3 CKD -Cr remains stable and in baseline range Assessment & Plan (08/01/2019 12:25 PM VAMP PRESSER): Stage 3 CKD -Cr remains stable and in baseline range Assessment & Plan (07/31/2019 4:15 PM VAMP PRESSER): History ckd stage 3 . Baseline creatine [...] PPI Assessment & Plan (05/27/2024 5:42 AM VAMP PRESSER): - IV ppi Assessment & Plan (04/19/2024 12:39 PM VAMP PRESSER): Continue with pantoprazole. Assessment & Plan (04/18/2024 1:41 PM VAMP PRESSER): Continue with pantoprazole. Assessment & Plan (04/18/2024 1:39 AM VAMP PRESSER): CW pantoprazole. Assessment & Plan (03/20/2022 1:03 [...] PPI Assessment & Plan (08/02/2019 9:45 AM VAMP PRESSER): -+ dyspepsia -continue PPI Assessment & Plan (08/01/2019 10:33 AM VAMP PRESSER): -+ dyspepsia -continue PPI Assessment & Plan (07/31/2019 4:00 PM VAMP PRESSER): Increase home dose PPI to bid to [...] 8:23 AM CDT): -H/H stable from prior [facility] reading and pt denies bleeding -Home iron supplementation held for now -continue to follow Assessment & Plan (07/31/2019 4:09 PM VAMP PRESSER): History of anemia - currently blood counts on admission look good Will continue to follow . Hyperlipidemia 01/07/2014 Assessment & Plan (04/19/2024 12:39 PM VAMP PRESSER): Holding statin for elevated liver enzymes. Assessment & Plan (04/18/2024 1:16 PM VAMP PRESSER): Holding statin for elevated liver enzymes. Assessment & Plan (04/18/2024 1:42 AM VAMP PRESSER): Holding statin for elevated liver enzymes. Assessment [...] 08/15/20 Assessment & Plan (07/31/2019 4:10 PM VAMP PRESSER): hi reports being on stelera injections Peripheral vascular disease 01/07/2014 Overview (09/03/2016): PVD Hypertension 01/07/2014 Assessment & Plan (04/19/2024 12:41 PM VAMP PRESSER): -Continue with Entresto, Hydralazine, coreg and imdur. -Monitor BP and adjust accordingly. -Orthostatic BP as patient mentioned having occasional lightheadedness while standing. -encourage adequate rehydration, safety precautions while changing positions, compression stockings. May consider med readjustment if symptoms persist Assessment & Plan (04/18/2024 1:42 PM VAMP PRESSER): -Continue with Entresto, Hydralazine, coreg and imdur. -Monitor BP and adjust accordingly. -Orthostatic BP as patient mentioned having occasional lightheadedness while standing. Assessment & Plan (04/18/2024 3:57 AM VAMP PRESSER): CW Entresto, Hydralazine, coreg and imdur. Monitor [...] needed Assessment & Plan (08/02/2019 9:41 AM VAMP PRESSER): -pt presented with poorly controlled hypertension -systolic BP remains elevated despite increased nitrates and coreg doses -consider addition of low dose norvasc to regimen -continue losartan and torsemide to regimen Assessment & Plan (08/01/2019 12:23 PM VAMP PRESSER): -pt presented with poorly controlled hypertension -nitrates and coreg increased--continue to follow and titrate as needed -continue losartan and add torsemide to regimen Assessment & Plan (07/31/2019 3:57 PM VAMP PRESSER): Elevated blood pressures at home and recorded [...] 06/02/2024 Assessment & Plan (05/27/2024 2:07 AM VAMP PRESSER): - flomax; low threshold to hold if recurrent hypotension Assessment & Plan (04/19/2024 12:39 PM VAMP PRESSER): CW tamsulosin. Assessment & Plan (04/18/2024 1:13 PM VAMP PRESSER): CW tamsulosin. Assessment & Plan (04/18/2024 1:39 AM VAMP PRESSER): CW tamsulosin. Assessment & Plan (04/02/2023 8:42 [...] SSI Assessment & Plan (05/27/2024 2:51 AM VAMP PRESSER): Home regimen includes lantus 30 IU nightly and lispro SSI - continue with basal (dose reduced to 17 units during prior admission) and SSI only (he states he takes 1-6 of lispro with meals) - add bolus TID if needed Assessment & Plan (04/19/2024 12:50 PM VAMP PRESSER): Home regimen includes lantus 30 IU nightly and lispro (6-20 IU) (per patient he takes 18 international units with most of the meals) - continue with basal bolus (dose reduced to 17 units) and prandial (dose reduced to 6 units with meals) regimen in additional to SSI - Monitor blood sugar and adjust insuline as needed. Assessment & Plan (04/18/2024 1:55 PM VAMP PRESSER): Home regimen includes lantus 30 IU nightly and lispro (6-20 IU) (per patient he takes 18 international units with most of the meals) - continue with basal bolus (dose reduced to 17 units) and prandial (dose reduced to 6 units with meals) regimen in additional to SSI - Monitor blood sugar and adjust insuline as needed. Assessment & Plan (04/18/2024 1:42 AM VAMP PRESSER): Home regimen includes lantus 30 IU nightly [...] SSI Assessment & Plan (08/02/2019 9:45 AM VAMP PRESSER): -HgA1C well controlled -continue lantus and SSI Assessment & Plan (08/01/2019 10:36 AM VAMP PRESSER): -HgA1C well controlled -continue lantus and SSI Assessment & Plan (07/31/2019 3:54 PM VAMP PRESSER): Recheck hemglobin a1c - last one recored in september 2016- 7.5 Patient states hemglobin a1c controlled as outpatient Continue lantus 30 units at QHS and SSI CAD in [place] artery 01/07/2014 025 Overview (02/23/2021): Coronary artery disease with history of coronary artery bypass graft with a MARIN to the LAD and free radial graft to obtuse marginal with multiple subsequent PCI to the right coronary artery. Assessment & Plan (05/27/2024 5:29 AM VAMP PRESSER): SP CABG (MARIN-LAD, free radial graft-OM ) S/p PCI to RCA - hold asa, hold coreg - statins held previously due to prior abnormal LFTs - continue trop trend to peak; currently chest pain free though he did take nitro in last 2-3 days Assessment & Plan (04/19/2024 12:39 PM VAMP PRESSER): SP CABG -Asymptomatic. -Negative troponin. -continue with ASA and coreg. -holding statins d/t abnormal LFTs Assessment & Plan (04/18/2024 1:41 PM VAMP PRESSER): SP CABG -Asymptomatic. -Negative troponin. -continue with ASA and coreg. Assessment & Plan (04/18/2024 1:43 AM VAMP PRESSER): SP CABG Asymptomatic. Negative troponin. CW ASA, [...] carvedilol Assessment & Plan (07/31/2019 4:08 PM VAMP PRESSER): Admitted with chest pain relieved in setting [...] = 0.6 oz pur e alcohol) [facility] Utilities Answer Date Recorded In the past [...] often do you attend chur ch or jehovah's witness services? More than 4 times per year 08/25/2024 Do you belong to any clubs o r organizations such as sabianist groups, unions, fraternal or athletic groups, or [...] place to sleep or slept in a care home (including now)? Patient refused 03/23/2023 Housing [...] any time in the past 12 m [facility], were you homeless or living in a care home (including now)? No 08/25/2024 Personal Safety Answer Date Recorded Have you ever been in or are you currently in a harmful physical or emotional relationship or is someone making you feel afraid or unsafe? Denies 08/23/2024 Sex and Gender Information Value Date Recorded Sex Assigned at Not on file Legal Sex Male 12:11 AM VAMP PRESSER Gender Identity Not on file Sexual Orientation [...] on file Medical Devices Implanted Type Area Beverage Server Device Identifier Shelf Expiration Date Model / Serial / Lot Icd ICD Left: Chest Wall Medtronic Lvad LVAD Left: Abdomen [employer]/C R Bard Ventralight St Sepra 8x6in Uncoated Monofilament Lightweight [id number] - [id number] Implanted:Qty: 1 on 03/22/2023 by Tony Blood MD at 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 [place] [address] * eGFR (12/06/2024 10:49 AM [...] LAB BLOOD ORDERABLES Fi nal Result [facility] [address] [facility]. [place] [address] * (ABNORMAL) Differential, auto (12/06/2024 10:49 AM [...] NP LAB BLOOD ORDERABLES Final Result [facility] [address] [facility]. [place] [address] * HIV 1/2 Antibody plus p24 Antigen Blood (12/06/2024 10:49 AM CDT) HIV 1/2 ab + p24 ag Nonreactive Nonreactive Comment: Nonreactive for HIV-1 antigen and HIV-1/HIV-2 antibodies. No laboratory evidence of HIV infection. If acute HIV infection is suspected, consider testing for HIV-1 RNA. Testing performed by: [facility], [place]., [address] Blood 12/06/2024 10:4 9 AM CDT 12/06/2024 2:51 PM CDT us Americo Mcneil MD LAB MICROBIOLOGY - GENE RAL ORDERABLES Final Result Performing Organization Address [facility] Co de Phone Number [facility] [address] [facility]. [facility] [place] [employer] [place] [address] * (ABNORMAL) CBC with auto differential (12/06/2024 10:49 AM CDT) WBC 8.13 3.80 - 9.90 K/cumm Hgb 13.3 13.0 - 17.5 g/dL [facility] Hct 40.9 38.9 - 50.3 % [facility] W Plt 182 150 - 400 K/cumm [facility] MPV 10.9 9.1 - 12.3 fL [facility] RBC 4.26(L) 4.30 - 5.80 M/cumm [facility] W MCV 96.0 81.3 - 96.4 fL [facility] W MCH 31.2 27.1 - 33.3 pg [facility] MCHC 32.5 32.3 - 35.7 g/dL [facility] W RDW CV 14.5 11.1 - 14.9 % [facility] RDW SD 50.9(H) 35.7 - 48.1 fL [facility] NRBC abs 0.00 0.00 - 0.01 K/cumm [facility] Blood 12/06/2024 10:4 9 AM CDT 12/06/2024 11:35 AM CDT Chloe Keys NP LAB BLOOD ORDERABLES Final Result Performing Organization Address [facility]/ZIP Co de Phone Number [facility] [address] [facility]. [facility] [employer] [place], [place] [phone] * (ABNORMAL) Protime-INR (12/06/2024 10:49 AM CDT) PT 15.1(H) 9.7 - 13.0 sec INR 1.39(H) 0.90 - 1.20 [facility] Comment: Interpretive data Oral anticoagulant [...] ORDERABLES Final Result Performing Organization Address [facility] de Phone Number [facility] [address] [facility] [employer] [place], [place] [id number] * (ABNORMAL) Lactate dehydrogenase (LD) (12/06/2024 10:49 AM CDT) Lactate dehydrogenase (LDH) 280(H) 100 - 250 Units/L Blood 12/06/2024 10:4 9 AM CDT 12/06/2024 11:35 AM CDT Chloe Keys LAB BLOOD ORDERABLES Final Result Performing Organization Address [facility] Phone Number [facility] [address] [facility] [employer] [place], [place] [phone] * (ABNORMAL) Comprehensive metabolic panel (12/06/2024 10:49 AM CDT) Sodium 141 135 - 145 mmol/L Potassium, pl 4.5 3.3 - 4.9 mmol/L [facility] Chloride 106 97 - 110 mmol/L [facility] CO2 23 22 - 32 mmol/L [facility] Anion gap 12 2 - 15 mmol/L [facility] BUN 22 6 - 25 mg/dL [facility] Creatinine 1.24 0.80 - 1.30 mg/dL [facility] Glucose 173 70 - 199 mg/dL [facility] Comment: Interpretive Data Fasting glucose >/= [...] CDT 12/06/2024 11:35 AM CDT Chloe Keys SENIOR SOUS CHEF LAB BLOOD ORDERABLES Final Result [facility] [address] [facility]. [place] [address] * (ABNORMAL) Comprehensive metabolic panel (12/06/2024 10:49 [...] BLOOD ORDERABLES Fi nal Result [facility] [address] [facility]. [place] [address] * (ABNORMAL) CBC with auto differential (12/05/2024) [...] ORDERABLES Fin al Result Performing Organization Address [facility] Co de Phone Number [...] 35 Units/L [facility] SCRIBED eGFR in NonAfrican Citizen Of [place] 65 >60 [facility] A/G Ratio 1.5 1.0 - 2.5 [facility] Blood 12/05/2024 us Suresh Vemra MD LAB BLOOD ORDERABLES Fin al Result [facility] * (ABNORMAL) Protime-INR (11/27/2024) INR 1.80(A) 0.90 - 1.10 Blood Result [facility] Historical Provider LAB BLOOD ORDERABLES Maia l Result * SCAN - LABS (11/23/2024 12:00 AM CDT) Provider Scanning Edited Result - Final * (ABNORMAL) Protime-INR (11/23/2024) SCRIBED PT 18.4(A) 9.0 - 11.5 sec [facility] SCRIB[facility] INR 1.8 0.9 - 4.0 sec [facility] Blood 11/23/2024 Result [facility] Suresh Verma MD LAB BLOOD ORDERABLES Fin al Result Performing Organization Address [facility] Co de Phone Number [...] Blood 11/20/2024 11:3 5 AM CDT Result [facility] Suresh Verma MD LAB BLOOD ORDERABLES Fin al Result Performing Organization Address City/State/[facility] Co de Phone Number [facility] * (ABNORMAL) Protime-INR (11/20/2024 11:35 AM CDT) SCRIBED PT 19.8(A) 9.0 - 11.5 sec [facility] SCRIBED INR 1.9(A) 2.0 - 3.0 sec [facility] Blood 11/20/2024 11:3 5 AM CDT us Suresh Verma MD LAB BLOOD ORDERABLES Fin al Result Performing Organization Address [facility]/State/ZIP Co de Phone Number [facility] * [...] 65 >=60 [facility] SCRIBED eGFR in NonAfrican Citizen Of [place] 65 >=60 [facility] Globulin 2.3 1.0 - 2.5 g/dL (calc) [facility] ALB/GLOB RATIO CALC 1.7 1.0 - 2.5 [facility] Blood 11/20/2024 11:3 5 AM CDT us Suresh Verma MD LAB BLOOD ORDERABLES Fin al Result [facility] * SCAN - LABS (11/20/2024 12:00 AM CDT) Result [facility] Provider Scanning Final Result * (ABNORMAL) Protime-INR (11/20/2024) INR 1.90(A) 0.90 - 1.10 Blood Result [facility] Historical Provider LAB BLOOD ORDERABLES Maia l Result * (ABNORMAL) Protime-INR (11/13/2024) Pathologist [facility] INR 1.80(A) 0.90 - 1.10 Blood Result [facility] Provider LAB BLOOD ORDERABLES Maia l Result * (ABNORMAL) CBC with auto differential (11/12/2024 2:35 PM CDT) Pathologist [facility] SCRIBED WBC 7.36 4.5 - 11.0 k/cumm TXP NO LAB FOUND SCRIBED Hemoglobin 11.4(A) 14.0 - 18.0 g/dL TXP NO LAB FOUND SCRIBED Hematocrit 34.6(A) 43.0 - 54.0 % TXP NO LAB FOUND SCRIBED Platelets 157 130 - 400 k/cumm TXP NO LAB FOUND SCRIBED Eosinophils Abs 0.57(A) 0.04 - 0.54 k/cumm TXP NO LAB FOUND Blood 11/12/2024 2:35 PM CDT Result [facility] Suresh Verma MD LAB BLOOD ORDERABLES Fin al Result [facility] NO LAB FOUND * (ABNORMAL) Protime-INR (11/12/2024 2:35 PM CDT) Pathologist [facility] SCRIBED PT 20.4(A) 10.2 - 12.9 sec [...] NO LAB FOUND SCRIBED eGFR in NonAfrican Citizen Of [place] 63 >90 TXP NO LAB FOUND Alb/glob ratio 1.0 1.0 - 2.0 TXP N O LAB FOUND BUN_Creat Ratio 23.5 6 - 26 TXP NO LAB FOUND Blood 11/12/2024 us Suresh Verma MD LAB BLOOD ORDERABLES Fin al Result Performing Organization Address [facility]/ZIP Co de Phone Number TXP NO LAB FOUND * Surgical pathology (11/12/2024 12:00 AM CDT) Tissue (Skin, shave biopsy) 11/12/2024 11/13/2024 7:[address] [facility] - 11/14/2024 3:43 PM CDT EPIC results best viewed via link to PDF [facility] [place] [address], [address], [place] [address] [email or web address] Note to Patients: This report [...] Submitting Physician Information: Kevin Dodd M.D. Dermatology [facility] [address] ([facility] [address], [address] [place] [address], DERMATOPATHOLOGY REPORT RESULTS DIAGNOSIS: SKIN, LEFT FOREHEAD, [...] Olmedo M.D. 11/14/2024 15:43:01 CLINICAL INFORMATION R/O [facility] SPECIMEN DATA MICROSCOPIC DESCRIPTION: Atypical keratinocytes are [...] exr/mat ICD-9 A; ZSD.1474 Clerical Data A; 73210 The characteristics of special, immunohistochemical, and immunofluorescence stains and in-situ hybridization tests performed by the [facility] were deemed acceptable in ongoing quality worker measures and in compliance with regulations drawn from the Clinical Laboratory Improvement Act [id number] (CLIA '88). Control reactions for all stains performed were deemed adequate and appropriate by a pathologist prior to evaluation of patient tissue. Some diagnoses were rendered with the assistance of laboratory-developed tests utilizing analyte-specific reagents; the performance characteristic of these tests were determined by [facility] and are not cleared or approved by the US Food an Drug administration. Laboratory developed test may only be performed in a facility that is certified by the [facility] as a high-complexity laboratory under CLIA '88. These tests are used for clinical purposes and are not investigational. Kevin Dodd MD LAB PATHOLOGY ORDERABL ES Final Result DERMATOPATHOLOGY CENTER [address] [place] [id number] * (ABNORMAL) Protime-INR (11/06/2024) Pathologist [facility] INR 1.60(A) 0.90 - 1.[address] [facility] Provider LAB BLOOD ORDERABLES Maia [...] 35 Units/L [facility] SCRIBED eGFR in NonAfrican Citizen Of [place] 74 >=60 [facility] Globulin 2.5 1.9 - [...] 35 Units/L [facility] SCRIBED eGFR in NonAfrican Citizen Of [place] 83 >=60 [facility] Blood 10/29/2024 11:3 8 [...] ORDERABLES Fin al Result Performing Organization Address [facility] de Phone Number TXP NO [...] ORDERABLES Fin al Result Performing Organization Address [facility] de Phone Number TXP NO [...] NO LAB FOUND SCRIBED eGFR in NonAfrican Citizen Of [place] 59 >90 TXP NO LAB FOUND BUN_Creat Ratio 19.0 6 - 26 TXP NO LAB FOUND Alb/glob ratio 1.1 1.0 - 2.0 TXP N O LAB FOUND Blood 10/23/2024 us Suresh Verma MD LAB BLOOD ORDERABLES Fin al Result Performing Organization Address [facility] Co de Phone Number TXP [...] 35 Units/L [facility] SCRIBED eGFR in NonAfrican Citizen Of [place] 65 >60 [facility] A/G Ratio 1.4 1.0 - 2.5 [facility] Blood 10/16/2024 Suresh Verma MD LAB BLOOD ORDERABLES Ayo leyla Result - Final [facility] * (ABNORMAL) Protime-INR (10/11/2024) Pathologist [facility] INR 1.60(A) 0.90 - 1.10 Blood Historical Provider LAB BLOOD ORDERABLES Maia l Result * (ABNORMAL) CBC with auto differential (10/10/2024 1:05 PM CDT) Pathologist [facility] SCRIBED WBC 6.6 3.8 - 10.8 k/cumm [facility] SCRIBED Hemoglobin 11.1(A) 13.2 - 17.1 g/dL [facility] SCRIBED Hematocrit 33.8(A) 38.5 - 50.0 % [facility] SCRIBED Platelets 187 140 - 400 k/cumm [facility] Blood 10/10/2024 1:05 PM CDT Suresh Verma MD LAB BLOOD ORDERABLES Fin al Result Performing Organization Address [facility]/ZIP Co de Phone Number [facility] * (ABNORMAL) Protime-INR (10/10/2024 1:05 PM CDT) [facility] SCRIBED PT 16.9(A) 9.0 - 11.5 sec [facility] SCRIBED INR 1.6(A) 2.0 - 3.0 sec [facility] Blood 10/10/2024 1:05 PM CDT us Suresh Verma MD LAB BLOOD ORDERABLES Fin al Result Performing Organization Address [facility] Co de Phone Number [facility] * (ABNORMAL) Comprehensive metabolic panel (10/10/2024 1:05 PM CDT) Pathologist [facility] SCRIBED Sodium 137 135 - 146 mmol/L [...] 35 Units/L [facility] SCRIBED eGFR in NonAfrican Citizen Of [place] 69 >=60 [facility] Blood 10/10/2024 1:05 PM CDT Suresh Verma MD LAB BLOOD ORDERABLES Fin al Result Performing Organization Address [facility] Co de Phone Number [...] ORDERABLES Fin al Result Performing Organization Address [facility] de Phone Number [facility] * (ABNORMAL) Protime-INR (10/01/2024) SCRIBED PT 14.2(A) 9.0 - 11.5 sec [facility] SCRIBED INR 1.3 0.9 - 4.0 sec [facility] Blood 10/01/2024 Suresh Verma MD LAB BLOOD ORDERABLES Fin al Result Performing Organization Address City/[facility] Co de Phone Number [...] 35 Units/L [facility] SCRIBED eGFR in NonAfrican Citizen Of [place] 64 >=60 [facility] Globulin 2.1 1.9 - 3.7 g/dL (calc) [facility] Alb/glob ratio 1.6 1.0 - 2.5 [facility] Blood 10/01/2024 us Suresh Verma MD LAB BLOOD ORDERABLES Fin al Result [facility] * Surgical pathology (09/25/2024 12:00 AM CDT) Tissue (Skin, shave biopsy) 09/25/2024 09/26/2024 4:30 AM CDT Narrative DERMATOPATHOLOGY CENTER - 09/27/2024 4:26 PM CDT EPIC results best viewed via link to PDF [facility] [address] [place] [address], [address], [place] [address] [email or web address] Note to Patients: This report may [...] 09/27/2024 Submitting Physician Information: JUAN Agrawal [address] [facility] [place] [id number] , [phone] DERMATOPATHOLOGY REPORT RESULTS DIAGNOSIS: A. SKIN, LEFT [...] ag/anc ICD-9 ZSD.1474 ZSD.176 Clerical Data A; 46941 B; 02463 The characteristics of special, immunohistochemical, and immunofluorescence stains and in-situ hybridization tests performed by the [facility] were deemed acceptable in ongoing quality worker measures and in compliance with regulations drawn from the Clinical Laboratory Improvement Act je3206 (CLIA '88). Control reactions for all stains performed were deemed adequate and appropriate by a pathologist prior to evaluation of patient tissue. Some diagnoses were rendered with the assistance of laboratory-developed tests utilizing analyte-specific reagents; the performance characteristic of these tests were determined by [facility] and are not cleared or approved by the US Food an Drug administration. Laboratory developed test may only be performed in a facility that is certified by the [facility] as a high-complexity laboratory under CLIA '88. These tests are used for clinical purposes and are not investigational. us Tin MARTINEZ LAB PATHOLOGY ORDERABL ES Final Result DERMATOPATHOLOGY CENTER [address] [place] [id number] * (ABNORMAL) CBC with auto differential (09/24/2024 [...] ORDERABLES Fin al Result Performing Organization Address City/[facility] Co de Phone Number [...] Units/L EXTERNAL LAB SCRIBED eGFR in NonAfrican Citizen Of [place] 69 >90 EXTERNAL LAB Blood 09/24/2024 1:30 [...] * (ABNORMAL) Protime-INR (09/18/2024) Pathologist [facility] INR 1.90(A) 0.90 - 1.10 Blood Crys Avila MD LAB BLOOD ORDERABLES Maia l Result * (ABNORMAL) CBC with auto differential (09/17/2024) Pathologist [facility] SCRIBED WBC 6.0 3.8 - 10.8 k/cumm [facility] SCRIBED Hemoglobin 10.7(A) 13.2 - 17.1 g/dL [facility] SCRIBED Hematocrit 33.8 28.5 - 50 % [facility] SCRIBED Platelets 200 140 - 400 k/cumm [facility] Blood 09/17/2024 Result [facility] Suresh Verma MD LAB BLOOD ORDERABLES Fin al Result [facility] * (ABNORMAL) Protime-INR (09/17/2024) Pathologist [facility] SCRIBED PT 19.5(A) 9.0 - 11.5 sec [facility] SCRIBED INR 1.9(A) 2.0 - 3.0 sec [facility] Blood 09/17/2024 Result [facility] Suresh Verma MD LAB BLOOD ORDERABLES Fin al Result [facility] * (ABNORMAL) Comprehensive metabolic panel (09/17/2024) Pathologist [facility] SCRIBED Sodium 137 135 - 146 mmol/L [...] 35 Units/L [facility] SCRIBED eGFR in NonAfrican Citizen Of [place] 57 >60 [facility] Urea nitrogen ur creatine ur ratio 16 6 - 22 [facility] A/G Ratio 1.4 1.0 - 2.5 [facility] Blood 09/17/2024 Result [facility] Suresh Verma MD LAB BLOOD ORDERABLES Fin al Result [facility] * (ABNORMAL) Protime-INR (09/11/2024) Pathologist [facility] INR 1.90(A) 0.90 - 1.10 Blood Result [facility] Crys Avila MD LAB BLOOD ORDERABLES Maia l Result * (ABNORMAL) CBC with auto differential (09/10/2024) Pathologist [facility] SCRIBED WBC 7.2 3.8 - 10.8 k/cumm SCRIBED Hemoglobin 10.7(A) 13.2 - 17.1 g/dL SCRIBED Hematocrit 33.1(A) 38.5 - 50.0 % SCRIBED Platelets 187 140 - 400 k/cumm Blood 09/10/2024 Result [facility] Suresh Verma MD LAB BLOOD ORDERABLES Fin al Result * (ABNORMAL) Protime-INR (09/10/2024) Pathologist [facility] SCRIBED PT 19.5(A) 9.0 - 11.5 sec SCRIBED INR 1.9(A) 0.9 - 1.1 sec Blood 09/10/2024 Suresh Verma MD LAB BLOOD ORDERABLES Fin al Result * (ABNORMAL) Comprehensive metabolic panel (09/10/2024) Pathologist [facility] SCRIBED Sodium 138 135 - 146 [...] - 35 Units/L SCRIBED eGFR in NonAfrican Citizen Of [place] 55 >60 BUN_Creat Ratio 17 6 - 22 Alb/glob ratio 1.4 1.0 - 2.5 Blood 09/10/2024 Suresh Verma MD LAB BLOOD ORDERABLES Fin al Result * (ABNORMAL) Hemoglobin A1c (08/23/2024 4:33 PM CDT) Pathologist [facility] Hgb A1C 7.1(H) 4.0 - 5.6 % Estimated Average Glucose 157 mg/dL [facility] Comment: The ADA recommends reporting an [...] LAB BLOOD ORDERABL ES Final Result [facility] Department [place] [address] * Flexible Sigmoidoscopy (05/29/2024 9:01 AM VAMP PRESSER) Anatomical Region Laterality Modality Other Narrative Procedure Note Robles Murphy MD - 05/29/2024 9:01 AM CST [facility] Patient Name: Cindy Severino Procedure Date: 05/29/2024 9:01 AM Date of : 1950 Admit Type: Inpatient Age: 73 Gender: Male Attending MD: Marquise Latham Room: [facility] ENDOSCOPY Note Status: Finalized Procedure: Flexible Sigmoidoscopy Indications: Rectal hemorrhage, Abnormal CT of the GI tract Referring MD: Suresh Verma M.D. Providers: Robles Murphy M.D., Royal Burgos M.D. Medicines: Monitored Anesthesia Care Complications: No immediate complications. Estimated Blood Loss: Estimated blood loss was minimal. Procedure: The benefits, risks, and alternatives to theprocedure and sedation were discussed and informed consentwas obtained. The [id number] endoscope was introduced through the anus [...] * (ABNORMAL) Lipid panel (05/26/2024 5:30 PM VAMP PRESSER) Cholesterol 180 30 - 199 mg/dL Comment: [...] revised on 2018. Triglycerides 161(H) <=149 mg/dL [facility] Comment: Interpretive Data Ages < or [...] on 2018. HDL 31(L) >=40 mg/dL [facility] Comment: Interpretive Data Ages < or [...] on 2018. LDL, calculated 120 <=129 mg/dL [facility] Comment: Interpretive Data Ages < or = [...] revised on 2024. Non-HDL Cholesterol 149 mg/dL [facility] Comment: Interpretive Data Ages < or = [...] last revised on 2018. Chol/HDL ratio 6 [facility] Blood 05/26/2024 5:30 PM VAMP PRESSER 05/26/2024 5:47 PM VAMP PRESSER Narrative [facility] - 05/27/2024 1:24 AM VAMP PRESSER This lipid panel was automatically ordered due to a significant change in Troponin. The dietary status of the patient at the collection time should be correlated with the lipid results. us Abel Mak MD LAB BLOOD ORDERABLES Maia l Result Performing Organization Address City/State/[facility] de Phone Number [facility] [place] [address] * Hepatitis C (HCV) RNA PCR, quantitative Blood (04/17/2024 6:26 PM VAMP PRESSER) [facility] HCV RNA result Not Detected [facility] Comment: The quantifiable range of this assay is 15 IU/mL to 100,000,000 IU/mL (1.18 log IU/mL to 8.00 log IU/mL). Testing was performed by the ILEANA 6800 HCV Test ([employer] Testing performed at [facility] Current Interpretive Data was last revised on 2021 Blood 04/17/2024 6:26 PM VAMP PRESSER 04/17/2024 6:46 PM VAMP PRESSER Olinda Harrell MD LAB MICROBIOLOGY - GENE RAL ORDERABLES Final Result Performing Organization Address [facility] de Phone Number [facility] [place] [address] [facility] * COLONOSCOPY REPORT (10/16/2013) Anatomical Region [...] 08/24/2024 08/24/2024 Insurance AETNA MEDICARE MEDICARE [facility] MEDICARE [facility]ICARE [facility] ([address] [address] AETNA MEDICARE MEDICARE [facility] AETNA MEDICARE Advance Directives For more information, please contact: [phone] Documents on File Type Date Recorded Patient Computer Repair Technician Expl anation ADVANCE DIRECTIVE 12/07/2012 12:00 AM EVIE LAMBERT WILL ADVANCE DIRECTIVE 12/07/2012 12:00 AM JIMENA R OF DIRECTOR OF CONSUMER MARKETING FINANCIAL/MEDICAL * Full Code (Latest Code Status [...] 3:02 PM 04/02/2023 5:36 PM Care Teams Barber Tool Sharpener Relationship Specialty Start Date End Date Tika Araujo MD PCP - General Nurse Practitioner 03/27/20 Americo Mcneil MD [address] [id number] [place] [address] PCP - Home Infusion Attending Infectious Diseases 10/15/24 Suresh Verma MD Production Broacher Transplant 09/16/18 Pao Allen, RN VAD Coordinator Transplant 03/20/19 Emmy Alicea Primary Aquatic Ecologist Transplant 08/14/24 Korey Warren, [facility] Pharmacist Pharmacy 10/23/24
--- OUTSIDE RECORDS SUMMARY | 2024-12-09 02:32 | XMS_ITS ---
Author Organization [facility] Virtual Care Address [address] [place] [phone] Phone Care Team Providers Care Pickle Cutter Name Role Phone Suresh Verma MD Unavailable [phone] Pao Allen RN Unavailable [phone] Tika Araujo MD Primary Care Provider [phone] Emmy Alicea Unavailable Unavailable Americo Mcneil MD Unavailable Korey Warren [facility] Unavailable Unavail able RxHI Anti-Infective - DALVANCE 1500 mg IV Every 14 Days Status:Enrolled (Active) Start date:2024 Enrollment date:2024 Linked medications:dalbavancin HCl (Active) Related program episode:Home Infusion (Active) Overview Pt on drug holiday Case Team Name Relationship Phone Korey Warren [facility](Responsible Staff) Pharm acist Continued Care and Services Coordination This section includes services coordinated for RxHI Anti-Infective - DALVANCE 1500 mg IV Every 14 Days. Home Medical Care Name Services Phone [email or web address] [facility] Home Infusion a nd Injection [phone]
--- OUTSIDE RECORDS SUMMARY | 2024-12-09 02:32 | XMS_ITS | Encounter Summary ---
Author Organization [facility] Address [address] [place] [address] Phone Care Team Providers Care Sheet Metal Former Name Role Phone Suresh Verma MD Unavailable [phone] Pao Allen RN Unavailable [phone] Tika Araujo MD Primary Care Provider [phone] Emmy Alicea Unavailable Unavailable Americo Mcneil MD Unavailable [phone] Korey Warren [facility] Unavailable Unavail able Encounter Details Date Type Department Care Team (Late st Contact Info) Description 04/23/2020 Telephone [facility] Cardiology [address] [place] [address] Medical Office Building [address] [place] [address] Melani Bobby Social History Tobacco Use Types Packs/Day Years Used Date Smoking Tobacco: Never Smokeless Tobacco: Never Alcohol Use Standard Drinks/Week Comments No 0 (1 standard drink = 0.6 oz pur e alcohol) Sex and Gender Information Value Date Recorded Sex Assigned at Not on file 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 Gender Identity Not on file Sexual Orientation [...] documented as of this encounter Care Teams Sheet Metal Former Relationship Specialty Start Date End Date Tika Araujo MD PCP - General Nurse Practitioner 03/27/20 Americo Mcneil MD [address] [phone] [place] [address] PCP - Home Infusion Attending Infectious Diseases 10/15/24 Suresh Verma MD Vinyl Flooring Installer Transplant 09/16/18 Pao Allen, RN VAD Coordinator Transplant 03/20/19 Emmy Alicea Primary Flat Machine Cutter Transplant 08/14/24 Korey Warren [facility] Pharmacist Pharmacy 10/23/24 documented as of this encounter
--- OUTSIDE RECORDS SUMMARY | 2024-12-09 02:32 | XMS_ITS | Clinical Summary ---
Author Organization [facility] Address [address] [place] [address] Care Team Providers Care Sleeve Separator Name Role Phone Unavailable Primary Care Provider Unavailabl e Source Comments [facility],non-owned Affiliates and Associated Physician Practices is amultiple site organization consisting of ambulatory clinics and hospital sitesin [place], [place], [place] and [place]. This disclosure is being madepursuant to the Care Everywhere program and may not contain all information available regarding this patient. 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
--- OUTSIDE RECORDS SUMMARY | 2024-12-09 02:32 | XMS_ITS | Clinical Summary ---
Author Organization [facility] Address [address] [place] [address] Care Team Providers Care Territory Sales Manager Name Role Phone Araceli Perez MD Unavailable Lance Hernandez MD Unavailable Timmy Leblanc MD Unavailable [phone] Ibrahima Wade MD Unavailable [phone] Obi Sharma OD Unavailable [phone] Americo Mcneil MD Unavailable [phone] Suresh Verma MD Unavailable [phone] Tika Araujo NP Primary Care Provider [phone] Allergies Active Allergy Reactions Criticality Noted Date [...] complication, with long-term current use of insulin ([facility] HHS/HCC) Use to check blood sugars TID 300 strip 3 02/25/20 22 Active normal saline 0.9 % injection As needed for SASH protocol as needed for line care 03/08/20 22 Active CREON 11213-71549 units capsuleIndication s:Pancreatic insufficiency (HHS/HCC) TAKE TWO [...] complication, with long-term current use of insulin ([facility] H[facility]/HCC) USE DAILY WITH NOVOLOG 90 each 3 05/24/20 23 Active nitroglycerin (NITROSTAT) 0.4 MG SL tabletIndications :LVAD (left ventricular assist device) present ([facility] H[facility]/HCC),Chronic systolic heart failure ([facility] H[facility]/HCC) Use one tablet by mouth every 5 minutes for chest pain. Max of 3 doses within 15 minutes. 50 tablet 3 07/20/19 24 Active Glucose Blood (CONTOUR NEXT TEST) test stripIndications: Type 2 diabetes mellitus without complication, with long-term current use of insulin ([facility]) TESTS 4 TIMES A DAY 300 strip [...] complication, with long-term current use of insulin ([facility] HHS/HCC) Inject 6-20 units into the skin [...] complication, with long-term current use of insulin ([facility] HHS/HCC) INJECT 30 TO 50 UNITS UNDER [...] pain, itchy skin, or jaundice. Pancreatic insufficiency ([facility]/HCC) 01/24/2024 Overview (01/24/2024): Taking Creon with each [...] left knee 01/03/2020 Chronic systolic heart failure ([facility] HHS/HCC) 06/14/2018 Overview (11/28/2019): Last Assessment & [...] LVAD (left ventricular isacc t device) present ([facility]) 02/08/2018 Overview (01/24/2024): Status post HeartMate III left ventricular assist device as destination therapy on April 12, 2015 for underlying [place] Heart Association class IV heart failure Patient was implanted in March 2015 Assessment & Plan (01/24/2024 9:57 PM CDT): Continue to follow up with cardio as directed. Cardiac resynchronization th erapy defibrillator (INSURANCE SALES SPECIALIST-D) in place 12/30/2017 Overview (11/28/2019): Generator at [...] recheck iron levels and follow CAD in [place] artery 01/07/2014 Overview (11/28/2019): Coronary artery disease [...] ICD9, potential mismatch. PVD Arthropathic psoriasis, unspecified ([facility]) 01/07/2014 Overview (01/24/2024): Follows with rheumatology Assessment & Plan (01/24/2024 9:54 PM CDT): Continue to follow up with rheumatology as directed. Type 2 diabetes mellitus wit h chronic kidney disease, with long-term current use of insulin ([facility]) 01/07/2014 Overview (09/18/2024): Last A1C 7.1 in [...] disease, with long-term current use of insulin ([facility]) 01/24/2024 01/24/2024 Multiple falls 03/31/2022 01/24/2024 Weakness 03/31/2022 01/24/2024 LVAD (left ventricular isacc t device) present ([facility]) 02/08/2018 01/24/2024 Overview (01/24/2024): Status post HeartMate III left ventricular assist device as destination therapy on April 12, 2015 for underlying [place] Heart Association class IV heart failure Last [...] daily standing weights, telemetry VT (ventricular tachycardia) ([facility]) 12/30/2017 08/20/2021 Overview (11/28/2019): Occurring before LVAD implantation - none since Last Assessment & Plan: -INSURANCE SALES SPECIALIST-D device (Metronic-- implanted prior to lvad. Pt is not PPM dependent and decision made to not proceed with generator change in December 2017) -continue tele Constipation 08/15/2014 01/24/2024 Hypoxemia 08/15/2014 05/30/2022 Overview (11/28/2019): Converted unresolved ICD9, potential mismatch. Converted unresolved ICD9, potential mismatch. Hyperkalemia 02/04/2014 05/30/2022 Psoriasis with arthropathy ([facility]) 4 01/24/2024 Overview (01/24/2024): patietn reports being on stelera injections Last Assessment & Plan: - Last Stelera dose 08/15/20 Encounters Date Type Department Care Team Description 12/04/[address] [place] [address] Tika Araujo NP Referral Request 11/27/[address] [place], [place] [address] Tika Araujo NP Appointment Request (AWV scheduled) 11/26/[address] [place], [place] [address] Tika Araujo NP Refill Request 11/23/2024 Scan [facility] Scanned, [facility] Lab (SCAN) 11/22/2024 Scan [facility] Scanned, Doc Med [facility] 11/12/2024 5:03 PM CDT - 11/12/2024 11:59 PM CDT Hospital Encounter [facility] [place] [address] Suresh Verma MD Discharge Disposition: Home or Self Care (Routine Discharge) 11/12/2024 Orders Only [facility] [place] [address] Suresh Verma MD 11/06/2024 Scan [facility] SRVCS Scanned, Doc [facility] CT (SCAN) 11/06/2024 Telephone [facility] Group Family Medicine [facility] [address] [place] [address] Tika Araujo NP Problem 10/25/2024 Scan [facility] SRVCS Scanned, Doc [facility] 10/23/2024 6:13 PM CDT - 10/23/2024 11:59 PM CDT Hospital Encounter [facility] [place] [address] Suresh Verma MD Discharge Disposition: Home or Self Care (Routine Discharge) 10/23/2024 6:11 PM CDT - 10/23/2024 6:12 PM CDT Hospital Encounter [facility] [place] [address] Suresh Verma MD Discharge Disposition: Home or Self Care (Routine Discharge) 10/23/2024 Orders Only [facility] [place] [address] Suresh Verma MD 10/01/2024 Scan [facility] SRVCS Scanned, [facility] Lab (SCAN) 09/24/2024 2:16 PM CDT - 09/24/2024 11:59 PM CDT Hospital Encounter [facility] [place] [address] Suresh Verma MD Discharge Disposition: Home or Self Care (Routine Discharge) 09/24/2024 Orders Only [facility] [place] [address] Suresh Verma MD 09/18/2024 2:20 PM CDT Office Visit [address] [place] [address] Tika Araujo NP Diabetes (Patient presents for a 4 week follow up diabetes) 09/18/2024 Travel 09/10/2024 Scan [facility] INFO SRVCS Scanned, Doc [facility] Lab (SCAN) 09/10/[address] [place] [address] Tika Araujo NP Question from Last 3 [...] Sex Assigned at Male 06/12/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 Legal Sex Male 10:14 AM CDT Gender [...] Description 12/25/2024 1:00 PM CDT Office Visit [facility] Family Medicine - [address] [address] Tika Araujo NP [address] [address] 01/21/2025 1:20 PM CDT Office Visit [address] [address] Tika Araujo NP [address] [address] 02/13/2025 7:00 AM CDT Office Visit [facility] [address] [place] [address] Timmy Leblanc MD [address] [place] [address] Health Maintenance Due Date Last Done Comments [...] 03/16/2007 Hepatitis C Completed 09/22/2023 PHQ-2 (Physician [place]) Completed 06/11/2024 Meningococcal B Vaccine Aged Out [...] CDT Heart replaced by heart assist device ([facility]) PROTHROMBIN TIME, VENOUS Routine 11/12/2024 2:35 PM CDT Heart replaced by heart assist device ([facility]) COMPREHENSIVE METABOLIC PANEL Routine 11/12/2024 2:35 PM CDT Heart replaced by heart assist device ([facility]) CT GENERIC 11/06/2024 COMPREHENSIVE METABOLIC PANEL Routine 10/23/2024 12:15 PM CDT Infection of biventricular pacemaker, subsequent encounter Heart replaced by heart assist device ([facility]) CBC W/DIFF AUTOMATED Routine 10/23/2024 12:15 PM CDT Infection of biventricular pacemaker, subsequent encounter Heart replaced by heart assist device ([facility]) PROTHROMBIN TIME, VENOUS Routine 10/23/2024 12:15 PM CDT Infection of biventricular pacemaker, subsequent encounter Heart replaced by heart assist device ([facility]) OUTSIDE LAB (SCAN ORDER) 10/01/2024 OUTSIDE PT/INR (SCAN ORDER) 10/01/2024 PROTHROMBIN TIME, VENOUS Routine 09/24/2024 1:30 PM CDT Heart replaced by heart assist device ([facility]) Infection of biventricular pacemaker, subsequent encounter CBC W/DIFF AUTOMATED Routine 09/24/2024 1:30 PM CDT Heart replaced by heart assist device ([facility]) Infection of biventricular pacemaker, subsequent encounter COMPREHENSIVE METABOLIC PANEL Routine 09/24/2024 1:30 PM CDT Heart replaced by heart assist device ([facility]) Infection of biventricular pacemaker, subsequent encounter OUTSIDE [...] - 12.9 SEC 11/12/2024 5:35 PM CDT [facility] INR 1.8 11/12/2024 5:35 PM CDT [facility] Comment: Recommended INR Therapeutic Goals: 2.0-3.0 Routine Therapy 2.5-3.5 Mechanical Prosthetic Valves (High Risk) 11/12/2024 2:35 PM CDT us Suresh Verma MD LABORATORY Final Result [facility] [address] [place] [address], [place] [phone] * (ABNORMAL) COMPREHENSIVE METABOLIC PANEL (11/12/2024 2:35 PM CDT) Only the most recent of3 resultswithin the time period is included. GLUCOSE 88 70 - 99 MG/DL 11/12/2024 5:40 PM CDT [facility] BUN 28(H) 7 - 18 MG/DL 11/12/2024 5:40 PM CDT [facility] CREATININE S/P/B 1.19 0.7 - 1.3 MG/DL 11/12/2024 5:40 PM CDT [facility] SODIUM S/P/B 139 136 - 145 MMOL/L 11/12/2024 5:40 PM CDT [facility] POTASSIUM S/P/B 4.4 3.5 - 5.1 MMOL/L 11/12/2024 5:40 PM CDT [facility] CHLORIDE S/P/B 110 97 - 115 MMOL/L 11/12/2024 5:40 PM CDT [facility] CO2 25.3 21 - 32 MMOL/L 11/12/2024 5:40 PM CDT [facility] CALCIUM S/P/B 8.5 8.5 - 10.1 MG/DL 11/12/2024 5:40 PM CDT [facility] BILIRUBIN TOTAL S/P/B 0.3 0.2 - 1.2 MG/DL 11/12/2024 5:40 PM CDT [facility] Comment: THIS ASSAY IS NOT RECOMMENDED FOR PATIENTS UNDERGOING TREATMENT WITH ELTROMBOPAG DUE TO THE POTENTIAL FOR FALSELY ELEVATED RESULTS. TOTAL PROTEIN S/P/B 5.9(L) 6.4 - 8.2 G/DL 11/12/2024 5:40 PM CDT [facility] ALBUMIN S/P/B 3.0(L) 3.4 - 5.0 G/DL 11/12/2024 5:40 PM T [facility] AST 64(H) 15 - 37 U/L 11/12/2024 5:40 PM T [facility] ALT 74(H) 16 - 60 U/L 11/12/2024 5:40 PM T [facility] ALKALINE PHOSPHATASE S/P/B 134 50 - 136 U/L 11/12/2024 5:40 PM T [facility] ANION GAP 3.7 2 - 10 MMOL/L 11/12/2024 5:40 PM T [facility] BUN CREATININE RATIO 23.5 6 - 26 11/12/2024 5:40 PM T [facility] A/G RATIO 1.0 1.0 - 2.0 RATIO 11/12/2024 5:40 PM T [facility] GFR ESTIMATE 63(L) >90 ML/MIN/1.7 3 M2 11/12/2024 5:40 PM T [facility] Comment: NOTE: eGFR is not [...] us Suresh Verma MD LABORATORY Final Result [facility] [address] [place] [address], [place] [phone] * (ABNORMAL) CBC W/DIFF AUTOMATED (11/12/2024 2:35 PM CDT) Only the most recent of3 resultswithin the time period is included. WBC 7.36 4.5 - 11.0 x10'3/uL 11/12/2024 5:13 PM CDT [facility] RBC 3.59(L) 4.70 - 6.10 x10'6/uL 11/12/2024 5:13 PM CDT [facility] HGB 11.4(L) 14.0 - 18.0 G/DL 11/12/2024 5:13 PM CDT [facility] HCT 34.6(L) 43.0 - 54.0 % 11/12/2024 5:13 PM CDT [facility] MCV 96.4(H) 80.0 - 94.0 FL 11/12/2024 5:13 PM CDT [facility] MCH 31.8(H) 27.0 - 31.0 PG 11/12/2024 5:13 PM CDT [facility] MCHC 32.9 32.0 - 36.0 G/DL 11/12/2024 5:13 PM CDT [facility] RDW 14.3 11.5 - 14.5 % 11/12/2024 5:13 PM CDT [facility] PLT 157 130 - 400 x10'3/uL 11/12/2024 5:13 PM CDT [facility] MPV 11.1 9.3 - 12.2 FL 11/12/2024 5:13 PM CDT [facility] DIFFERENTIAL TYPE AUTOMATED DIFFERENTIAL 11/12/2024 5:13 PM CDT [facility] NEUTROPHILS % 67.5 % 11/12/2024 5:13 PM CDT [facility] LYMPHOCYTES % 11.4 % 11/12/2024 5:13 PM CDT [facility] MONOCYTES % 12.0 % 11/12/2024 5:13 PM CDT [facility] EOSINOPHILS 7.7 % 11/12/2024 5:13 PM CDT [facility] BASOPHILS 1.0 % 11/12/2024 5:13 PM CDT [facility] IMMATURE GRANS % 0.4 % 11/13/19 5:13 PM CDT [facility] ABS. NEUTROPHILS 4.97 1.80 - 7.70 x10'3/uL 11/12/2024 5:13 PM CDT [facility] ABS. LYMPHOCYTES 0.84(L) 1.00 - 4.80 x10'3/uL 11/12/2024 5:13 PM CDT [facility] ABS. MONOCYTES 0.88(H) 0.30 - 0.82 x10'3/uL 11/12/2024 5:13 PM CDT [facility] ABS. EOSINOPHILS 0.57(H) 0.04 - 0.54 x10'3/uL 11/12/2024 5:13 PM CDT [facility] ABS. BASOPHILS 0.07 0.01 - 0.08 x10'3/uL 11/12/2024 5:13 PM CDT [facility] ABS. IMMATURE GRANULOCYTES 0.03 0.00 - 0.49 x10'3/uL 11/12/2024 5:13 PM CDT [facility] 11/12/2024 2:35 PM CDT Suresh Verma MD LABORATORY Final Result [facility] [address] [place] [address], [place] [phone] * CT GENERIC (11/06/2024) Anatomical Region Laterality Modality Other 11/06/2024 D2S [facility] Scanned SCANNING Final Resu lt * OUTSIDE LAB (SCAN ORDER) (10/01/2024) Only the most recent of2 resultswithin the time period is included. 10/01/2024 [employer] [facility] Scanned SCANNING Final Resu lt * A1C (BACK OFFICE) (01/24/2024) HGB A1C 5.9 % [address] [place] 01/24/2024 Tika Araujo NP LABORATORY Final Res ult [address] [place] [address] [place] [address], [place] [phone] * HEP C SCANNED ORDERS (09/22/2023) us [facility] Scanned SCANNING Final Resu lt [facility] ONBASE * DIABETIC RETINOPATHY EXAM (POSITIVE)(SCAN) (01/25/2023) us [facility] Scanned SCANNING Final Resu lt [facility] ONBASE * LIPID PANEL (11/04/2021) CHOLESTEROL 127 HDL 34 TRIGLYCERIDES 156 NON HDL CHOLESTEROL 93 CHOL/HDL RATIO 4 LDL (CALCULATED) 62 11/04/2021 us [facility] Abstract LABORATORY Final Res ult from Last 3 Months or Most Recently Relevant to Health Maintenance Insurance [employer] Care Teams Territory Sales Manager Relationship Specialty Start Date End Date Tika Araujo NP [address] [place] [address] PCP - General NURSE PRACTITIONER 03/14/[address] [place] [address] [facility] [address] RHEUMATOLOGY 06/24/20 Lance Hernandez MD [address] [place] [address] DERMATOLOGY 06/24/20 Timmy Leblanc MD [address] [place] [address] FAMILY MEDICINE SPORTS MEDICINE 06/24/20 Ibrahima Wade MD [address] [place] [address] INTERVENTIONAL CARDIOLOGY 06/24/20 Obi Sharma, OD [address] [place] [address] Industrial Gas Production Operator 08/18/21 Americo Mcneil MD [address] [place] [address] INFECTIOUS DISEASE 08/31/22 Suresh Verma MD [address] [place] [address] HEART & VASCULAR CARE 08/31/22
--- OUTSIDE RECORDS SUMMARY | 2024-12-09 02:32 | XMS_ITS ---
Author Organization [facility] Virtual Care Address [address] [place] [address] Phone Care Team Providers Care Manager Of Business Name Role Phone Suresh Verma MD Unavailable [phone] Pao Allen RN Unavailable Tika Araujo MD Primary Care Provider [phone] Emmy Alicea Unavailable Unavailable Americo Mcneil MD Unavailable [phone] Korey Warren [facility] Unavailable Unavail able Home Infusion Status:Enrolled (Active) Start date:2024 Enrollment date:2024 Related service episodes:RxHI Anti-Infective - DALVANCE 1500 mg IV Every 14 Days (Active) Overview Pt on drug holiday Continued Care and Services Coordination
--- OUTSIDE RECORDS SUMMARY | 2024-12-09 02:32 | XMS_ITS | Encounter Summary ---
Author Organization [facility] Healthcare Address [address] [place] [address] Care Team Providers Care Rhic Systems Safety Engineer Name Role Phone Suresh Verma MD Unavailable [phone] Pao Allen RN Unavailable [phone] Tika Araujo MD Primary Care Provider [phone] Emmy Alicea Unavailable Unavailable Americo Mcneil MD Unavailable [phone] Korey Warren [facility] Unavailable Unavail able Encounter Details Date Type Department Care Team (Late st Contact Info) Description 06/02/2021 Telephone 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 Gender Identity Not on file Sexual [...] documented as of this encounter Care Teams Rhic Systems Safety Engineer Relationship Specialty Start Date End Date Tika Araujo MD PCP - General Nurse Practitioner 03/27/20 Americo Mcneil MD [address] [facility] [phone] [place] [address] PCP - Home Infusion Attending Infectious Diseases 10/15/24 Suresh Verma MD Taxonomy Teacher Transplant 09/16/18 Pao Allen, RN VAD Coordinator Transplant 03/20/19 Emmy Alicea Primary Rubber Boots And Shoes Repairer Transplant 08/14/24 Korey Warren, [facility] Pharmacist Pharmacy 10/23/24 documented as of this encounter
--- OUTSIDE RECORDS SUMMARY | 2024-12-09 02:32 | XMS_ITS | Encounter Summary ---
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 Gender Identity Not on file Sexual [...] documented as of this encounter Care Teams Parts Coordinator Relationship Specialty Start Date End Date Tika Araujo MD PCP - General Nurse Practitioner 03/27/20 Americo Mcneil MD [address] [facility] [phone] [place] [address] PCP - Home Infusion Attending Infectious Diseases 10/15/24 Suresh Verma MD Primary School Teacher Librarian Transplant 09/16/18 Pao Allen, RN VAD Coordinator Transplant 03/20/19 Emmy Alicea Primary Claims Clerk Transplant 3/18/25 Korey Warren, [facility] Pharmacist Pharmacy 10/23/24 documented as of this encounter
--- OUTSIDE RECORDS SUMMARY | 2024-12-09 02:32 | XMS_ITS | Encounter Summary ---
Author Organization [facility] Address [address] [place] [address] Phone Care Team Providers Care Audio/Visual Operator Name Role Phone Suresh Verma MD Unavailable [phone] Pao Allen RN Unavailable [phone] Tika Araujo MD Primary Care Provider [phone] Emmy Alicea Unavailable Unavailable Americo Mcneil MD Unavailable [phone] Korey Warren [facility] Unavailable Unavail able Encounter Details Date Type [...] declined 03/23/2023 How often do you attend jew or pentecostalism serv ices? Patient declined 03/23/2023 Do you belong to any clubs o r organizations such as jew groups, unions, fraternal or athletic groups, or [...] place to sleep or slept in a skilled nursing (including now)? Patient refused 03/23/2023 Personal Safety Answer Date Recorded Have you ever been in or are you currently in a harmful physical or emotional relationship or is someone making you feel afraid or unsafe? 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 Gender Identity Not on file Sexual [...] documented as of this encounter Care Teams Audio/Visual Operator Relationship Specialty Start Date End Date Tika Araujo MD PCP - General Nurse Practitioner 03/27/20 Americo Mcneil MD [address] [facility] [id number] [place] [address] PCP - Home Infusion Attending Infectious Diseases 10/15/24 Suresh Verma MD Psychologist Educational Transplant 09/16/18 Pao Allen, RN VAD Coordinator Transplant 03/20/19 Emmy Alicea Primary Green End Worker Transplant 08/14/24 Korey Warren [facility] Pharmacist Pharmacy 10/23/24 documented as of this encounter
--- OUTSIDE RECORDS SUMMARY | 2024-12-09 02:32 | XMS_ITS | Clinical Summary ---
Author Organization [facility] Virtual Care Address [address] [place] [id number] Phone Care Team Providers Care Patent Attorney Name Role Phone Suresh Verma MD Unavailable [phone] Pao Allen RN Unavailable [phone] Tika Araujo MD Primary Care Provider [phone] Emmy Alicea Unavailable Unavailable Americo Mcneil MD Unavailable [phone] Korey Warren [facility] Unavailable Unavail able Allergies Active Allergy Reactions [...] mL IV as needed for line care 81403 mL 2025 Active heparin 100 unit/mL syringeIndicati ons:Bacterial intestinal infection,Infec tion and inflammatory reaction due to cardiac device, implant, and graft, sequela,Presenc e of heart assist device (HCC) Infuse 5 mL (500 Units total) IV as needed (line care) 87461 mL 2025 Active dextrose 5 % in [...] bid Assessment & Plan (05/27/2024 2:51 AM SUPERVISOR COMPRESSED YEAST): -Home regimen: Entresto, coreg and imdur. -hold these iso orthostasis; re-introduce as tolerated Orthostasis 05/27/2024 Assessment & Plan (05/27/2024 5:39 AM SUPERVISOR COMPRESSED YEAST): Presented with orthostatic symptoms while at home [...] 05/27/2024 Assessment & Plan (06/05/2024 11:44 AM SUPERVISOR COMPRESSED YEAST): Admitted with BRBPR and near syncope, Hgb [...] sigmoidoscopy. Assessment & Plan (06/04/2024 11:42 AM SUPERVISOR COMPRESSED YEAST): Admitted with BRBPR and near syncope, Hgb [...] sigmoidoscopy. Assessment & Plan (06/03/2024 8:04 AM SUPERVISOR COMPRESSED YEAST): Admitted with BRBPR and near syncope, Hgb [...] sigmoidoscopy. Assessment & Plan (06/01/2024 11:39 AM SUPERVISOR COMPRESSED YEAST): Admitted with BRBPR and near syncope, Hgb [...] sigmoidoscopy. Assessment & Plan (05/31/2024 9:25 AM SUPERVISOR COMPRESSED YEAST): Admitted with BRBPR and near syncope, Hgb [...] CBCs Assessment & Plan (05/27/2024 12:05 PM SUPERVISOR COMPRESSED YEAST): C/O BRBPR admitted with near syncope, admit Hgb 11.6, INR 2.4 -serial CBC -BID PPI -guaiac stools -hold ASA and warfarin pending Hgb trend -consider GI consult when INR down Assessment & Plan (05/27/2024 5:33 AM SUPERVISOR COMPRESSED YEAST): After admission; overnight patient had episode of [...] inpatient Assessment & Plan (06/05/2024 11:44 AM SUPERVISOR COMPRESSED YEAST): Home regimen: Lantus 30units nightly and Lispro SSI -HgbA1c 6.8 -BG currently controlled -Continue dose reduced Lantus 26 units nightly, Lispro 6 units TID with meals + SSI -Carb consistent diet -Accuchecks Assessment & Plan (06/04/2024 11:41 AM SUPERVISOR COMPRESSED YEAST): Home regimen: Lantus 30units nightly and Lispro SSI -HgbA1c 6.8 -BG currently controlled -Continue dose reduced Lantus 26 units nightly, Lispro 6 units TID with meals + SSI -Carb consistent diet -Accuchecks Assessment & Plan (06/03/2024 8:03 AM SUPERVISOR COMPRESSED YE[employer]): Home regimen: Lantus 30units nightly and Lispro SSI -HgbA1c 6.8 -BG currently controlled -Continue dose reduced Lantus 26 units nightly, Lispro 6 units TID with meals + SSI -Carb consistent diet -Accuchecks Assessment & Plan (06/01/2024 11:40 AM SUPERVISOR COMPRESSED YEAST): Home regimen: Lantus 30units nightly and Lispro SSI -HgbA1c 6.8 -BG currently controlled -Continue dose reduced Lantus 26 units nightly, Lispro 6 units TID with meals + SSI -Carb consistent diet -Accuchecks Assessment & Plan (05/31/2024 9:30 AM SUPERVISOR COMPRESSED YEAST): Home regimen: Lantus 30units nightly and Lispro SSI -HgbA1c 6.8 -BG currently controlled -Continue dose reduced Lantus 26 units nightly, Lispro 6 units TID with meals + SSI -Carb consistent diet -Accuchecks Assessment & Plan (05/27/2024 9:58 AM SUPERVISOR COMPRESSED YEAST): Home regimen includes lantus 30 IU nightly and lispro SSI HgbA1c 6.8 -dose reduce lantus, add meal time lispro insulin Hypomagnesemia 05/27/2024 Assessment & Plan (06/03/2024 8:04 AM SUPERVISOR [employer]PRESSED YE[employer]): S/p IV repletion this admission, continue to check and treat as needed Assessment & Plan (05/27/2024 12:04 PM SUPERVISOR [employer]PRESSED YEAST): Mg 1.3 -replete with PO and IV -recheck tomorrow History of left ventricular assist device (LVAD) 05/26/2024 Assessment & Plan (06/05/2024 11:44 AM SUPERVISOR COMPRESSED YEAST): 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) admitted with near [...] weights Assessment & Plan (06/04/2024 11:42 AM SUPERVISOR COMPRESSED YEAST): 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) admitted with near [...] weights Assessment & Plan (06/03/2024 8:04 AM SUPERVISOR COMPRESSED YEAST): 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) admitted with near [...] weights Assessment & Plan (06/01/2024 11:30 AM SUPERVISOR COMPRESSED YEAST): 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) admitted with near [...] weights Assessment & Plan (05/31/2024 9:45 AM SUPERVISOR COMPRESSED YEAST): 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 Assessment & Plan (04/18/2024 1:51 PM SUPERVISOR [employer]PRESSED YE[employer]): RUQ/ Right flank pain associated with nausea [...] control. Assessment & Plan (04/18/2024 1:38 AM SUPERVISOR COMPRESSED YEAST): RUQ/ Right flank pain associated with nausea [...] 04/17/2024 Assessment & Plan (04/19/2024 12:38 PM SUPERVISOR COMPRESSED YE[employer]): - have been progressively increasing lately - [...] desensitization. Assessment & Plan (04/18/2024 1:40 PM SUPERVISOR COMPRESSED YEAST): - have been progressively increasing lately - [...] recs. 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 Assessment & Plan (04/01/2023 12:48 PM CDT): [...] 08/28/2021 Assessment & Plan (05/27/2024 2:46 AM SUPERVISOR COMPRESSED YEAST): Improving from prior admission when minocycline switched [...] CPAP Assessment & Plan (06/05/2024 11:46 AM SUPERVISOR COMPRESSED YEAST): -Nightly CPAP with home unit Assessment & Plan (06/04/2024 11:43 AM SUPERVISOR COMPRESSED YEAST): -Nightly CPAP with home unit Assessment & Plan (06/03/2024 8:05 AM SUPERVISOR COMPRESSED YEAST): Nightly CPAP with home unit Assessment & Plan (06/01/2024 11:40 AM SUPERVISOR COMPRESSED YEAST): Nightly CPAP with home unit Assessment & Plan (05/29/2024 11:33 AM SUPERVISOR COMPRESSED YEAST): Nightly CPAP with home unit Assessment & Plan (05/27/2024 9:50 AM SUPERVISOR COMPRESSED YEAST): Nightly CPAP with home unit Assessment & Plan (05/27/2024 1:34 AM SUPERVISOR COMPRESSED YEAST): - continue CPAP Assessment & Plan (04/19/2024 12:49 PM SUPERVISOR COMPRESSED YEAST): Continue with CPAP Assessment & Plan (04/18/2024 1:45 PM SUPERVISOR COMPRESSED YEAST): Continue with CPAP Assessment & Plan (04/18/2024 2:03 AM SUPERVISOR COMPRESSED YEAST): CW CPAP Assessment & Plan (04/02/2023 8:42 [...] 10/22/2020 Assessment & Plan (06/05/2024 11:46 AM SUPERVISOR COMPRESSED YEAST): -BMI 34, encourage weight loss Assessment & Plan (06/03/2024 8:05 AM SUPERVISOR COMPRESSED YEAST): BMI 34, encouraged weight loss Assessment & Plan (05/27/2024 7:50 AM SUPERVISOR COMPRESSED YEAST): BMI 34, encouraged weight loss Assessment & [...] 06/14/2018 Assessment & Plan (06/05/2024 11:42 AM SUPERVISOR COMPRESSED YEAST): Pt c/o chest pain x 3 days relieved with SL nitro. -hx CABG and PCI in past -slightly elevated troponin, continue to trend -EKG unremarkable -increase imdur to 60mg daily -continue coreg, hold ASA 2/2 GIB, previously discontinued statin 2/2 elevated LFT -denies CP since admit Assessment & Plan (06/04/2024 11:36 AM SUPERVISOR COMPRESSED YEAST): Pt c/o chest pain x 3 days relieved with SL nitro. -hx CABG and PCI in past -slightly elevated troponin, continue to trend -EKG unremarkable -increase imdur to 60mg daily -continue coreg, hold ASA 2/2 GIB, previously discontinued statin 2/2 elevated LFT -denies CP since admit Assessment & Plan (06/03/2024 8:00 AM SUPERVISOR COMPRESSED YEAST): Pt c/o chest pain x 3 days relieved with SL nitro. -hx CABG and PCI in past -slightly elevated troponin, continue to trend -EKG unremarkable -increase imdur to 60mg daily -continue coreg, hold ASA 2/2 GIB, previously discontinued statin 2/2 elevated LFT -denies CP since admit Assessment & Plan (05/27/2024 12:21 PM SUPERVISOR COMPRESSED YEAST): Pt c/o chest pain x 3 days [...] diuretics Assessment & Plan (08/02/2019 9:43 AM SUPERVISOR COMPRESSED YEAST): -chronic systolic end stage heart failure -exam [...] -tele Assessment & Plan (08/01/2019 12:24 PM SUPERVISOR COMPRESSED YEAST): -chronic systolic end stage heart failure -exam appears euvolemic and LVAD appears to be functioning appropriately -suspect that presenting CP 2/2 poorly controlled BP -continue asa/losartan and coreg/nitrate doses increased -add home torsemide for improved BP control -2D echo pending -continue low sodium diet -tele Assessment & Plan (07/31/2019 4:15 PM SUPERVISOR COMPRESSED YEAST): Appears euvolemic on exam Admitted with elevated [...] therapy on April 12, 2015 for underlying [place] [employer] class IV heart failure Assessment & Plan (08/31/2024 8:44 AM CDT): ICM with HFrEF S/P LEGAL OFFICER-D and DT-HM3 (03/2015) admitted with BRBPR. Hemodynamically [...] -cont suppressive abx for hx driveline infection -PT/OT/decorating supervisor -tele monitoring Assessment & Plan (08/30/2024 1:39 PM CDT): ICM with HFrEF S/P LEGAL OFFICER-D and DT-HM3 (03/2015) admitted with BRBPR. Hemodynamically [...] -cont suppressive abx for hx driveline infection -PT/OT/decorating supervisor -tele monitoring Assessment & Plan (08/29/2024 9:09 AM CDT): ICM with HFrEF S/P LEGAL OFFICER-D and DT-HM3 (03/2015) admitted with BRBPR. Hemodynamically stable, appears euvolemic and denies VAD alarms. INR 2.24 on admission. -held warfarin for GIB, INR now 1.48, restarting warfarin with heparin bridge -warfarin 5mg tonight then 4mg daily -stopped asa -cont entresto, coreg, imdur -cont suppressive abx for hx driveline infection -PT/OT/decorating supervisor -tele monitoring Assessment & Plan (08/26/2024 12:36 PM CDT): ICM with HFrEF S/P LEGAL OFFICER-D and DT-HM3 (03/2015) admitted with BRBPR. Hemodynamically stable, appears euvolemic and denies VAD alarms. INR 2.24 on admission. -hold warfarin for GIB -cont entresto, coreg, imdur -cont suppressive abx for hx driveline infection -tele monitoring Assessment & Plan (08/24/2024 10:44 AM CDT): ICM with HFrEF S/P LEGAL OFFICER-D and DT-HM3 (03/2015) admitted with BRBPR. Hemodynamically [...] 2:53 AM CDT): ICM with HFrEF S/P LEGAL OFFICER-D and DT-HM3 (03/2015) admitted with BRBPR. Hemodynamically stable, appears euvolemic and denies VAD alarms. INR 2.24 on admission. 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 -on home Torsemide 20 mg daily prn. Will continue to monitor volume status and order diuretics prn -ABx are on hold because of elevated liver enzymes, CW same. -On warfarin 5mg Eboin, Tuesday and Tuesday, 4mg ROW, INR 2.5, CW same. -Drivel line entry site does not look infected. -Patient denied any LVAD alarms. -continue with Entresto and coreg. -tele monitor, strict I&Os, daily weight, 2 g Na diet Assessment & Plan (04/18/2024 3:54 AM SUPERVISOR COMPRESSED YEAST): ICM with HFrEF S/P LEGAL OFFICER-D and DT-HM3 (03/2015) Hx of recurrent drive [...] BP not improved with IVF will need GAS FURNACE INSTALLER -strict I/Os, daily standing weights -tele Assessment [...] & Plan (09/02/2021 12:01 PM CDT): [facility] March 2015 -LVAD functioning appropriately, no alarms -acute on chronic systolic HF with VENU and elevated LFTs -treated with IV lasix with improvement -transitioned back to home torsemide -INR 1.8, will increase warfarin to 6mg daily except Sun/Mon 5mg (home regimen) -continue home carvedilol, hydralazine, isordil, ASA, atorvastatin -I&Os, daily weights, telemetry Assessment & Plan (09/01/2021 9:21 AM CDT): [facility] March 2015 -LVAD functioning appropriately, no alarms -acute on chronic systolic HF with VENU and elevated LFTs -treated with IV lasix with improvement -transition back to home torsemide -INR down to 1.7; will give extra dose warfarin this morning -continue warfarin -continue home carvedilol, hydralazine, isordil, ASA, atorvastatin -I&Os, daily weights, telemetry Assessment & Plan (08/31/2021 3:38 PM CDT): [facility] March 2015 -LVAD functioning appropriately, no [...] & Plan (08/28/2021 1:53 PM CDT): [facility] March 2015 -LVAD functioning appropriately, no alarms -appears near euvolemic on exam -INR supratherapeutic, hold warfarin tonight -continue home carvedilol, hydralazine, isordil, ASA, atorvastatin -I&Os, daily weights, telemetry Assessment & Plan (08/27/2021 11:55 AM CDT): [facility] March 2015 LVAD functioning appropriately, no alarms -appears near euvolemic on exam -resume home torsemide 20mg daily -INR therapeutic at 2.8 (goal 2-3) -continue home warfarin regimen: 4mg SMWF, 5mg TTS -continue home carvedilol, hydralazine, isordil -continue home ASA 325mg daily, atorvastatin -I&Os, daily weights, telemetry -complication management as above Assessment & Plan (08/26/2021 11:32 AM CDT): [facility] March 2015 LVAD functioning appropriately, no alarms -appears euvolemic on exam -hold home diuretics for now (torsemide 20mg daily) -INR therapeutic at 2.5 (goal 2-3) -continue home warfarin regimen: 4mg SMWF, 5mg TTS -continue home carvedilol, hydralazine, isordil -continue home ASA 325mg daily, atorvastatin -I&Os, daily weights, telemetry -complication management as above Assessment & Plan (08/25/2021 10:29 AM CDT): [facility] March 2015 LVAD functioning appropriately, no [...] 2-3) Increase Warfarin to 7mg Monitor on soccer player I/Os, daily weights Assessment & Plan (10/23/2020 [...] 325 Assessment & Plan (07/31/2019 4:13 PM SUPERVISOR COMPRESSED YEAST): Patient was implanted in March 2015 as [...] INR checks. Cardiac resynchronization th erapy defibrillator (LEGAL OFFICER-D) in place 12/30/2017 Overview (12/21/2021): Reached EoL in 2018 - elected NOT to generator change VT (ventricular tachycardia) (CMS/HCC) 8 Overview (12/21/2021): Occurring before LVAD implantation - none since LEGAL OFFICER-D device (Metronic-- implanted prior to lvad. Pt is not PPM dependent and decision made to not proceed with generator change in December 2017) Assessment & Plan (09/11/2021 10:26 AM CDT): -NSVT on telemetry -Monitor and replete electrolytes -telemetry Assessment & Plan (09/10/2021 9:31 AM CDT): nsvt noted on soccer player for increase in arrythmia Keep potassium above 4 and magnesium around 2 CTM Assessment & Plan (08/02/2019 9:55 AM SUPERVISOR COMPRESSED YEAST): -LEGAL OFFICER-D device (Metronic-- implanted prior to lvad. Pt is not PPM dependent and decision made to not proceed with generator change in December 2017) -continue tele Assessment & Plan (08/01/2019 12:21 PM SUPERVISOR COMPRESSED YEAST): -LEGAL OFFICER-D device (Metronic-- implanted prior to lvad. Pt is not PPM dependent and decision made to not proceed with generator change in December 2017) -continue tele Assessment & Plan (07/31/2019 4:21 PM SUPERVISOR COMPRESSED YEAST): patient had LEGAL OFFICER-D device metronic implanted prior to lvad Is not pacemaker depenent Saw Dr. 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 Assessment & Plan (06/01/2024 11:39 AM SUPERVISOR COMPRESSED YEAST): -CT scan has increase stool burden with stool ball in sigmoid colon -S/p enema for preparation for flex sigmoidoscopy performed on 05/29 -Patient has had several BMs since but none yet today -Continue Miralax BID, senna-docusate BID and dulcolax suppository PRN -Add lactulose today Assessment & Plan (05/31/2024 9:45 AM SUPERVISOR COMPRESSED YEAST): -CT scan has increase stool burden with stool ball in sigmoid colon -S/p enema for preparation for flex sigmoidoscopy performed on 05/29 -Patient has had several BMs including this morning -Continue Miralax, senna-docusate and dulcolax suppository PRN Assessment & Plan (05/27/2024 2:45 AM SUPERVISOR COMPRESSED YEAST): - had large BM in ED - [...] baseline Assessment & Plan (06/05/2024 11:46 AM SUPERVISOR COMPRESSED YEAST): -Creatinine at baseline -Avoid nephrotoxins, renally dose meds as appropriate -Avoid hypotension -BMP daily Assessment & Plan (06/04/2024 11:44 AM SUPERVISOR COMPRESSED YEAST): -Creatinine at baseline -Avoid nephrotoxins, renally dose meds as appropriate -Avoid hypotension -BMP daily Assessment & Plan (06/03/2024 8:05 AM SUPERVISOR COMPRESSED YEAST): Creatinine at baseline Assessment & Plan (06/01/2024 11:40 AM SUPERVISOR COMPRESSED YEAST): Creatinine at baseline Assessment & Plan (05/29/2024 11:32 AM SUPERVISOR COMPRESSED YEAST): Creatinine at baseline Assessment & Plan (05/27/2024 7:49 AM SUPERVISOR COMPRESSED YEAST): Creatinine at baseline Assessment & Plan (04/19/2024 12:49 PM SUPERVISOR COMPRESSED YEAST): Cr at baseline CTM. Assessment & Plan (04/18/2024 1:23 PM SUPERVISOR COMPRESSED YEAST): Cr at baseline CTM. Assessment & Plan (04/18/2024 1:46 AM SUPERVISOR COMPRESSED YEAST): Cr at baseline CTM. Assessment & Plan [...] follow Assessment & Plan (08/02/2019 9:51 AM SUPERVISOR COMPRESSED YEAST): Stage 3 CKD -Cr remains stable and in baseline range Assessment & Plan (08/01/2019 12:25 PM SUPERVISOR COMPRESSED YEAST): Stage 3 CKD -Cr remains stable and in baseline range Assessment & Plan (07/31/2019 4:15 PM SUPERVISOR COMPRESSED YEAST): History ckd stage 3 . Baseline creatine [...] PPI Assessment & Plan (05/27/2024 5:42 AM SUPERVISOR COMPRESSED YEAST): - IV ppi Assessment & Plan (04/19/2024 12:39 PM SUPERVISOR COMPRESSED YEAST): Continue with pantoprazole. Assessment & Plan (04/18/2024 1:41 PM SUPERVISOR COMPRESSED YEAST): Continue with pantoprazole. Assessment & Plan (04/18/2024 1:39 AM SUPERVISOR COMPRESSED YEAST): CW pantoprazole. Assessment & Plan (03/20/2022 1:03 [...] PPI Assessment & Plan (08/02/2019 9:45 AM SUPERVISOR COMPRESSED YEAST): -+ dyspepsia -continue PPI Assessment & Plan (08/01/2019 10:33 AM SUPERVISOR COMPRESSED YEAST): -+ dyspepsia -continue PPI Assessment & Plan (07/31/2019 4:00 PM SUPERVISOR COMPRESSED YEAST): Increase home dose PPI to bid to [...] 8:23 AM CDT): -H/H stable from prior [facility] reading and pt denies bleeding -Home iron supplementation held for now -continue to follow Assessment & Plan (07/31/2019 4:09 PM SUPERVISOR COMPRESSED YEAST): History of anemia - currently blood counts on admission look good Will continue to follow . Hyperlipidemia 01/07/2014 Assessment & Plan (04/19/2024 12:39 PM SUPERVISOR COMPRESSED YEAST): Holding statin for elevated liver enzymes. Assessment & Plan (04/18/2024 1:16 PM SUPERVISOR COMPRESSED YEAST): Holding statin for elevated liver enzymes. Assessment & Plan (04/18/2024 1:42 AM SUPERVISOR COMPRESSED YEAST): Holding statin for elevated liver enzymes. Assessment [...] 08/15/20 Assessment & Plan (07/31/2019 4:10 PM SUPERVISOR COMPRESSED YEAST): hi reports being on stelera injections Peripheral vascular disease 01/07/2014 Overview (09/03/2016): PVD Hypertension 01/07/2014 Assessment & Plan (04/19/2024 12:41 PM SUPERVISOR COMPRESSED YEAST): -Continue with Entresto, Hydralazine, coreg and imdur. -Monitor BP and adjust accordingly. -Orthostatic BP as patient mentioned having occasional lightheadedness while standing. -encourage adequate rehydration, safety precautions while changing positions, compression stockings. May consider med readjustment if symptoms persist Assessment & Plan (04/18/2024 1:42 PM SUPERVISOR COMPRESSED YEAST): -Continue with Entresto, Hydralazine, coreg and imdur. -Monitor BP and adjust accordingly. -Orthostatic BP as patient mentioned having occasional lightheadedness while standing. Assessment & Plan (04/18/2024 3:57 AM SUPERVISOR COMPRESSED YEAST): CW Entresto, Hydralazine, coreg and imdur. Monitor [...] needed Assessment & Plan (08/02/2019 9:41 AM SUPERVISOR COMPRESSED YEAST): -pt presented with poorly controlled hypertension -systolic BP remains elevated despite increased nitrates and coreg doses -consider addition of low dose norvasc to regimen -continue losartan and torsemide to regimen Assessment & Plan (08/01/2019 12:23 PM SUPERVISOR COMPRESSED YEAST): -pt presented with poorly controlled hypertension -nitrates and coreg increased--continue to follow and titrate as needed -continue losartan and add torsemide to regimen Assessment & Plan (07/31/2019 3:57 PM SUPERVISOR COMPRESSED YEAST): Elevated blood pressures at home and recorded [...] 06/02/2024 Assessment & Plan (05/27/2024 2:07 AM SUPERVISOR COMPRESSED YEAST): - flomax; low threshold to hold if recurrent hypotension Assessment & Plan (04/19/2024 12:39 PM SUPERVISOR COMPRESSED YEAST): tamsulosin. Assessment & Plan (04/18/2024 1:13 PM SUPERVISOR COMPRESSED YEAST): tamsulosin. Assessment & Plan (04/18/2024 1:39 AM SUPERVISOR COMPRESSED YEAST): tamsulosin. Assessment & Plan (04/02/2023 8:42 AM [...] SSI Assessment & Plan (05/27/2024 2:51 AM SUPERVISOR COMPRESSED YEAST): Home regimen includes lantus 30 IU nightly and lispro SSI - continue with basal (dose reduced to 17 units during prior admission) and SSI only (he states he takes 1-6 of lispro with meals) - add bolus TID if needed Assessment & Plan (04/19/2024 12:50 PM SUPERVISOR COMPRESSED YEAST): Home regimen includes lantus 30 IU nightly and lispro (6-20 IU) (per patient he takes 18 international units with most of the meals) - continue with basal bolus (dose reduced to 17 units) and prandial (dose reduced to 6 units with meals) regimen in additional to SSI - Monitor blood sugar and adjust insuline as needed. Assessment & Plan (04/18/2024 1:55 PM SUPERVISOR [employer]): Home regimen includes lantus 30 IU nightly and lispro (6-20 IU) (per patient he takes 18 international units with most of the meals) - continue with basal bolus (dose reduced to 17 units) and prandial (dose reduced to 6 units with meals) regimen in additional to SSI - Monitor blood sugar and adjust insuline as needed. Assessment & Plan (04/18/2024 1:42 AM SUPERVISOR [employer] YE[employer]): Home regimen includes lantus 30 IU nightly [...] SSI Assessment & Plan (08/02/2019 9:45 AM SUPERVIS[employer] YE[employer]): -HgA1C well controlled -continue lantus and SSI Assessment & Plan (08/01/2019 10:36 AM SUPERVIS[employer] YE[employer]): -HgA1C well controlled -continue lantus and SSI Assessment & Plan (07/31/2019 3:54 PM SUPERVISOR [employer] YE[employer]): Recheck hemglobin a1c - last one recored in september 2016- 7.5 Patient states hemglobin a1c controlled as outpatient Continue lantus 30 units at [facility] and SSI CAD in [place] artery 01/07/2014 025 Overview (02/23/2021): Coronary artery disease with history of coronary artery bypass graft with a MARIN to the LAD and free radial graft to obtuse marginal with multiple subsequent PCI to the right coronary artery. Assessment & Plan (05/27/2024 5:29 AM SUPERVISOR [employer]PRESS[employer] YE[employer]): SP CABG (MARIN-LAD, free radial graft-OM ) S/p PCI to RCA - hold asa, hold coreg - statins held previously due to prior abnormal LFTs - continue trop trend to peak; currently chest pain free though he did take nitro in last 2-3 days Assessment & Plan (04/19/2024 12:39 PM SUPERVIS[employer] YE[employer]): SP CABG -Asymptomatic. -Negative troponin. -continue with ASA and coreg. -holding statins d/t abnormal LFTs Assessment & Plan (04/18/2024 1:41 PM SUPERVISOR [employer] YE[employer]): SP CABG -Asymptomatic. -Negative troponin. -continue with ASA and coreg. Assessment & Plan (04/18/2024 1:43 AM SUPERVISOR [employer] YE[employer]): SP CABG Asymptomatic. Negative troponin. CW ASA, [...] carvedilol Assessment & Plan (07/31/2019 4:08 PM SUPERVISOR [employer] YE[employer]): Admitted with chest pain relieved in setting [...] Type Department Care Team Description 12/08/2024 Telephone [facility] Transplant Heart [address] [phone] [place] [address] Courtney Bonilla RN 12/06/2024 10:45 AM CDT Lab [facility] [address] [place] [address] LVAD (left ventricular assist device) present (HCC) 12/06/2024 10:30 AM CDT Lab [place] [address] [place] [address] Screen for sexually transmitted diseases; Eosinophilia, unspecified type; 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 12/06/2024 10:00 AM CDT Office Visit [facility] Infectious Diseases [address] [facility] Medical Office Building 3 [address] [place] [address] Americo Mcneil MD 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); Encounter for long-term (current) use of antibiotics; Eosinophilia, unspecified type; Screen for sexually transmitted diseases; Disorder 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); LVAD (left ventricular assist device) present ([facility]) 12/06/2024 Anticoagulation Telephone Call [facility] Transplant Heart [address] [facility] [address] Mailstop 34-24-214 [place] [address] Pao Allen RN 12/06/2024 Documentation [facility] Infectious Diseases [address] [facility] [address] [place] [phone] Shanelle Sanches, SANKET 12/06/2024 Orders Only [facility] Infectious Diseases [address] [facility] [address] [place] [address] Shanelle Sanches, SANKET 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) 12/04/2024 11:00 AM CDT Procedure visit [facility] Dermatology [address] [facility] Outpatient Health [address] [place] [phone] Kevin Dodd MD Squamous cell carcinoma of forehead (Primary Dx); AK (actinic keratosis) 12/04/2024 Telephone [facility] Infectious Diseases [address] [facility] Medical Office Building 3 [address] [place] [address] Americo Mcneil MD 12/04/2024 Telephone [facility] Infectious Diseases [address] [facility] [address] [place] [phone] Alia Espinoza 12/03/2024 Telephone [facility] Imaging [address] [place] [address] Katrin Veloz RN 12/03/2024 Documentation [facility] Infectious Diseases [address] [facility] [address] [place] [phone] Shanelle Sanches, SANKET 12/03/2024 Orders Only [facility] Infectious Diseases [address] [facility] [address] [place] [phone] Shanelle Sanches RN 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) 11/27/2024 Anticoagulation Telephone Call [facility] Transplant Heart [address] [facility] [address] Mailstop 32-02-611 [place] [address] Pao Allen RN 11/26/2024 Telephone [facility] Infectious Diseases [address] [facility] [address] [place] [address] Alia Espinoza 11/23/2024 Home Infusion [facility] [address] [place] [address] James Espinoza, [facility] 11/22/2024 Telephone [facility] Cardiology [address] [facility] Advanced Medicine 8th [place] [address] [place] [phone] Suresh Verma MD 11/21/2024 Telephone [facility] Infectious Diseases [address] [facility] [address] [place] [address] Americo Mcneil MD 11/21/2024 Anticoagulation Telephone Call [facility] Transplant Heart [address] [facility] [address] Mailstop 71-38-437 [place] [address] Courtney Bonilla RN 11/20/2024 Telephone [facility] Cardiology [address] [facility] Advanced Medicine 8th [place] [address] [place] [phone] Suresh Wyman MD PhD 11/20/2024 Telephone [facility] Transplant Heart [address] [facility] [address] Mailstop 16-57-567 [place] [address] Isaiah Miranda 11/20/2024 Home Infusion [facility] [address] [place] [address] Lorraine Bloom 11/19/2024 Telephone [facility] Infectious Diseases [address] [facility] [address] [place] [address] Alia Espinoza 11/19/2024 Telephone [facility] Infectious Diseases [address] [facility] [address] [place] [phone] Alia Espinoza 11/19/2024 Results Follow-Up [facility] Dermatology [address] [facility] [address] [place] [phone] Kevin Dodd MD Surgical pathology 11/13/2024 Anticoagulation Telephone Call [facility] Transplant Heart [address] [facility] [address] Mailstop 66-53-186 [place] [address] Pao Allen RN 11/13/2024 Orders Only [facility] [address] [place] [address] Kevin Dodd MD Neoplasm of unspecified behavior of bone, soft tissue, and skin 11/12/2024 10:30 AM CDT Office Visit [facility] Dermatology [address] [facility] Outpatient Health [address] [place] [phone] Kevin Dodd MD Neoplasm of unspecified behavior of bone, soft tissue, and skin (Primary Dx); Postop check 11/12/2024 Telephone [facility] Cardiology [address] [facility] Advanced Medicine 8th [place] [address] [place] [address] Suresh Verma MD 11/11/2024 Telephone [facility] Transplant Heart [address] [facility] [address] Mailstop 47-32-837 [place] [address] Pao Allen, RN LVAD Equipment Replacement (EBB) 11/10/2024 Telephone [facility] Transplant Heart [address] [facility] [address] Mailstop 61-54-934 [place] [address] Pao Allen, RN 11/06/2024 Anticoagulation Telephone Call [facility] Transplant Heart [address] [facility] [address] Mailstop 90-04-570 [place] [address] Pao Allen, SANKET 11/02/2024 Anticoagulation Telephone Call [facility] Transplant Heart [address] [facility] [address] Mailstop 34-89-775 [place] [address] Pao Allen RN 10/25/2024 10:00 AM CDT Office Visit [facility] Cardiology [facility] Medical Office Building [address] [place] [phone] Ischemic cardiomyopathy (Primary Dx); Chronic systolic heart failure (HCC); Transaminitis; LVAD (left ventricular assist device) present ICM, end-stage systolic CHF s/p HM3 (2014) 10/25/2024 9:20 AM CDT Office Visit [facility] Infectious Diseases [address] [place] [address] Medical Office Building [address] [place] [phone] Americo Mcneil MD 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); Eosinophilia, unspecified type 10/25/2024 Documentation [facility] Infectious Diseases [address] [address] Shanelle Sanches RN 10/25/2024 Orders Only [facility] Transplant Heart [address] [facility] [address] Mailstop 46-95-250 [place] [address] Pao Allen, RN 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) 10/23/2024 Anticoagulation Telephone Call [facility] Transplant Heart [address] [place] [address] [address] Mailstop 80-92-523 [place] [address] Pao Allen, RN 10/23/2024 Home Infusion [facility] [address] [place] [address] Edwina Robb [facility] Infection and inflammatory reaction due to cardiac device, implant, and graft, sequela (Primary Dx); Bacterial intestinal infection; Presence of heart assist device (HCC) 10/18/2024 Orders Only [facility] Care Services [address] [facility] [address] [place] [address] Korey Warren RPh 10/18/2024 Telephone [facility] Transplant Heart [address] [place] [address] [address] Mailop 66-63-017 [place] [address] Steffany Reyes 10/15/2024 11:00 AM CDT Procedure visit [facility] Dermatology [address] [facility] Outpatient Health [address] [place] [phone] Kevin Dodd MD Actinic keratosis (Primary Dx); 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; Basal cell carcinoma (BCC) of left side of neck 10/15/2024 Orders Only [facility] [address] [facility] [address] [place] [address] Korey Warren RPh 10/12/2024 Telephone [facility] Infectious Diseases [address] [facility] [address] [place] [address] Shanelle Sanches RN 10/11/2024 Anticoagulation Telephone Call [facility] Transplant Heart [address] [place] [address] [address] Mailstop 40-42-149 [place] [address] Pao Allen, SANKET 10/11/2024 Documentation [facility] Infectious Diseases [address] [facility] [address] [place] [address] Shanelle Sanches, SANKET 10/04/2024 Telephone [facility] Transplant Heart [address] [facility] [address] Mail[address] 12-76-605 [place] [address] Faby Macdonald 10/02/2024 Anticoagulation Telephone Call [facility] Transplant Heart [address] [facility] [address] Mailstop 41-18-035 [place] [address] Pao Allen RN 10/02/2024 Telephone [facility] Transplant Heart [address] [facility] [address] Mailstop 26-16-396 [place] [address] Karoline Álvarez 10/01/2024 Telephone [facility] Infectious Diseases [address] [facility] [address] [place] [address] Destinee Peraza RMA 10/01/2024 Telephone [facility] Dermatology [address] [place] [address] Outpatient Health [address] [place] [address] Tin Pinedo PA 09/28/2024 Telephone [facility] [address] [facility] [address] [place] [phone] Korey Warren [facility] 09/28/2024 Results Follow-Up [facility] Dermatology [address] [facility] [address] [place] [address] Tin Pinedo PA Surgical pathology 09/27/2024 Documentation [facility] Infectious Diseases [address] [facility] [address] [place] [address] Thelma Desai Lab Results 09/26/2024 Orders Only [facility] [address] [place] [address] Tin Pinedo PA Neoplasm of skin 09/25/2024 2:45 PM CDT Office Visit [facility] Dermatology [address] [place] [address] Outpatient Health [address] [place] [address] Tin Pinedo PA Actinic keratosis (Primary Dx); Neoplasm of skin; Inflamed seborrheic keratosis; Multiple benign nevi; Seborrheic keratosis; Seborrheic dermatitis; History of nonmelanoma skin cancer 09/25/2024 Telephone [facility] Infectious Diseases [address] [facility] Medical Office Building [address] [place] [address] Americo Mcneil MD 09/24/2024 Anticoagulation Telephone Call [facility] Transplant Heart [address] [facility] [address] Mailstop 10-93-202 [place] [address] Estrella Arvizu RN 09/24/2024 Telephone [facility] Transplant Heart [address] [facility] [address] Mailstop 78-95-072 [place] [address] Karoline Álvarez 09/21/2024 Telephone [facility] Transplant Heart [address] [place] [address] [address] Mail[address] 47-22-398 [place] [address] Karoline Álvarez 09/21/2024 Telephone [facility] Infectious Diseases [address] [address] Destinee Peraza RMA 09/20/2024 2:30 PM CDT Office Visit [facility] Orthopaedic Surgery [address] [place] [address] Office Building [address] [place] [address] Tammy Zavala PA Primary osteoarthritis of left knee (Primary Dx); Knee effusion, left 09/20/2024 1:52 PM CDT - 09/20/2024 11:59 PM CDT Hospital Encounter [facility] [address] [place] [address] [address] [place] [address] Left knee pain, unspecified chronicity Discharge Disposition: Discharge to home or self care 09/20/2024 Documentation [facility] Infectious Diseases [address] [address] Thelma Desai Progress/Monitoring 09/18/2024 Anticoagulation Telephone Call [facility] Transplant Heart [address] [place] [address] [address] Mail[address] 22-42-295 [place] [address] Pao Allen, RN 09/17/2024 Telephone [facility] Infectious Diseases [address] [facility] [address] [place] [address] Indiana Guerrero CMA 09/14/2024 Orders Only [facility] Home Care Services [address] [facility] [address] [place] [address] Ashlie Jorge, [facility] 09/11/2024 Documentation [facility] Infectious Diseases [address] [facility] [address] [place] [address] Thelma Desai Progress/Monitoring 09/11/2024 Anticoagulation Telephone Call [facility] Transplant Heart [address] [place] [address] [address] Mail[address] 30-72-227 [place] [address] Pao Allen, RN 09/10/2024 Telephone [facility] Transplant Heart [address] [place] [address] [address] Mail[address] 68-08-215 [place], [place] [phone] Isaiah Miranda from Last 3 Months Immunizations [...] Ulnar nerve d amage VT (ventricular tachycardia) ([facility]) 12/30/2017 Occurring before LVAD implantation - none since Occurring before LVAD implantation - none since Last Assessment & Plan: -LEGAL OFFICER-D device (Metronic-- implanted prior to lvad. Pt [...] drink = 0.6 oz pur e alcohol) [facility] Utilities Answer Date Recorded In [...] often do you attend chur ch or anabaptism services? More than 4 times [...] any time in the past 12 m [facility], were you homeless or living [...] file Legal Sex Male 12:11 AM [employer] Gender Identity Not on file Sexual Orientation [...] Screening Discontinued Medical Devices Implanted Type Area Fashion Illustrator Device Identifier Shelf Expiration Date Model / Serial / Lot Icd ICD Left: Chest Wall Medtronic Lvad LVAD Left: Abdomen [employer]/C R Bard Ventralight St Sepra 8x6in Uncoated Monofilament Lightweight [id number] - [id number] Implanted:Qty: 1 on 03/22/2023 by Tony Blood MD at [facility] Mesh N/A: Abdomen [employer] R Bard [id number] 09/24/2024 [id number] / / [id number] Procedures Procedure Name Priority Date/Time Associated Diagnosis Comments EGFR Routine 12/06/2024 10:49 AM CDT LVAD (left ventricular assist device) present (HCC) EGFR Routine 12/06/2024 10:49 AM CDT 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 [place] [address] * eGFR (12/06/2024 10:49 AM [...] LAB BLOOD ORDERABLES Fi nal Result [facility] [address] [facility]. [place] [address] * (ABNORMAL) Differential, auto (12/06/2024 [...] on 2017. Monocyte pct 9.3 % [facility] Comment: Interpretive Data Percent cell count [...] on 2017. Basophil pct 1.1 % [facility] Comment: Interpretive Data Percent cell count reference ranges are not reported, since discordance with absolute values may lead to misinterpretation of CBC data. Current Interpretive Data was last revised on 2017. Blood 12/06/2024 10:4 9 AM CDT 12/06/2024 11:35 AM CDT us Chloe Keys NP LAB BLOOD ORDERABLES Final Result Performing Organization Address City/[facility]/ZIP Co de Phone Number [facility] [address] [employer] [address] * HIV 1/2 Antibody plus p24 Antigen Blood (12/06/2024 10:49 AM CDT) [facility] HIV 1/2 ab + p24 ag Nonreactive Nonreactive Comment: Nonreactive for HIV-1 antigen and HIV-1/HIV-2 antibodies. No laboratory evidence of HIV infection. If acute HIV infection is suspected, consider testing for HIV-1 RNA. Testing performed by: [facility], [place]., [address] Blood 12/06/2024 10:4 9 AM CDT 12/06/2024 2:51 PM CDT Americo Mcneil MD LAB MICROBIOLOGY - GENE RAL ORDERABLES Final Result Performing Organization Address City/[facility]/ZIP Co de Phone Number [facility] [address] [employer] [address] * (ABNORMAL) CBC with auto differential (12/06/2024 10:49 AM CDT) WBC 8.13 3.80 - 9.90 K/cumm Hgb 13.3 13.0 - 17.5 g/dL [facility] Hct 40.9 38.9 - 50.3 % [facility] Plt 182 150 - 400 K/cumm [facility] MPV 10.9 9.1 - 12.3 fL [facility] RBC 4.26(L) 4.30 - 5.80 M/cumm [facility] MCV 96.0 81.3 - 96.4 fL [facility] MCH 31.2 27.1 - 33.3 pg [facility] MCHC 32.5 32.3 - 35.7 g/dL [facility] RDW CV 14.5 11.1 - 14.9 % [facility] RDW SD 50.9(H) 35.7 - 48.1 fL [facility] NRBC abs 0.00 0.00 - 0.01 K/cumm [facility] Blood 12/06/2024 10:4 9 AM CDT 12/06/2024 11:35 AM CDT Chloe Keys NP LAB BLOOD ORDERABLES Final Result Performing Organization Address City/State/[facility] Co de Phone Number [facility] [address] [facility] [place] [address] * (ABNORMAL) Protime-INR (12/06/2024 10:49 AM CDT) PT 15.1(H) 9.7 - 13.0 sec INR 1.39(H) 0.90 - 1.20 [facility] Comment: Interpretive data Oral anticoagulant therapeutic ranges: Venous thromboembolism prophylaxis or treatment: 2.0-3.0 CARDIOLOGY Standard range: 2.0-3.0 High-intensity range: 2.5-3.5 Refer to indication-specific guidelines for appropriate target ranges for prosthetic heart valve replacement. Current interpretive data was last revised on 2019. Blood 12/06/2024 10:4 9 AM CDT 12/06/2024 11:35 AM CDT Chloe Keys LAB BLOOD ORDERABLES Final Result Performing Organization Address [facility] de Phone Number [facility] [address] [facility] [place] [address] * (ABNORMAL) Lactate dehydrogenase (LD) (12/06/2024 10:49 AM CDT) Pathologist [facility] Lactate dehydrogenase (LDH) 280(H) 100 - 250 Units/L Blood 12/06/2024 10:4 9 AM CDT 12/06/2024 11:35 AM CDT Chloe Keys LAB BLOOD ORDERABLES Final Result Performing Organization Address [facility] Phone Number [facility] [address] [place] [address] * (ABNORMAL) Comprehensive metabolic panel (12/06/2024 10:49 AM CDT) Pathologist [facility] Sodium 141 135 - 145 mmol/L Potassium, pl 4.5 3.3 - 4.9 mmol/L [facility] Chloride 106 97 - 110 mmol/L [facility] CO2 23 22 - 32 mmol/L [facility] Anion gap 12 2 - 15 mmol/L [facility] BUN 22 6 - 25 mg/dL [facility] Creatinine 1.24 0.80 - 1.30 mg/dL [facility] Glucose 173 70 - 199 mg/dL [facility] Comment: Interpretive Data Fasting glucose >/= [...] CDT 12/06/2024 11:35 AM CDT Chloe Keys MANAGED [employer]IAISON LAB BLOOD ORDERABLES Final Result [facility] [address] [facility] Department [place] [address] * (ABNORMAL) Comprehensive metabolic panel (12/06/2024 10:49 [...] [facility] Glucose 177 70 - 199 mg/dL [facility] Comment: Interpretive Data Fasting glucose >/= [...] ORDERABLES Fi nal Result Performing Organization Address [facility] Co de Phone Number [facility] [address] [facility]. [place] [address] * (ABNORMAL) CBC with auto differential (12/05/2024) [...] ORDERABLES Fin al Result Performing Organization Address City/[facility]/ZIP Co de Phone Number [facility] * (ABNORMAL) [...] 35 Units/L [facility] SCRIBED eGFR in NonAfrican Malagasy 65 >60 [facility] A/G Ratio 1.5 1.0 [...] - 4.0 sec [facility] Blood 11/23/2024 Result [facility] Suresh Verma MD LAB BLOOD ORDERABLES [...] Blood 11/20/2024 11:3 5 AM CDT Result [facility] Suresh Verma MD LAB BLOOD ORDERABLES [...] 65 >=60 [facility] SCRIBED eGFR in NonAfrican Malagasy 65 >=60 [facility] Globulin 2.3 1.0 - 2.5 g/dL (calc) [facility] ALB/GLOB RATIO CALC 1.7 1.0 - 2.5 [facility] Blood 11/20/2024 11:3 5 AM CDT us Suresh Verma MD LAB BLOOD ORDERABLES Fin al Result [facility] * SCAN - LABS (11/20/2024 12:00 AM CDT) us Provider Scanning Final Result * (ABNORMAL) Protime-INR (11/20/2024) Pathologist [facility] INR 1.90(A) 0.90 - 1.10 Blood Result [facility] Provider MD LAB BLOOD ORDERABLES Maia l Result * (ABNORMAL) Protime-INR (11/13/2024) INR 1.80(A) 0.90 - 1.10 Blood Result [facility] Provider MD LAB BLOOD ORDERABLES Maia l Result * (ABNORMAL) CBC with auto differential (11/12/2024 2:35 PM CDT) Pathologist [facility] SCRIBED WBC 7.36 4.5 - 11.0 k/cumm TXP NO LAB FOUND SCRIBED Hemoglobin 11.4(A) 14.0 - 18.0 g/dL TXP NO LAB FOUND SCRIBED Hematocrit 34.6(A) 43.0 - 54.0 % TXP NO LAB FOUND SCRIBED Platelets 157 130 - 400 k/cumm TXP NO LAB FOUND SCRIBED Eosinophils Abs 0.57(A) 0.04 - 0.54 k/cumm TXP NO LAB FOUND Blood 11/12/2024 2:35 PM CDT Result [facility] Suresh Verma MD LAB BLOOD ORDERABLES Fin al Result Performing Organization Address [facility] Co de Phone Number TXP NO LAB FOUND * (ABNORMAL) Protime-INR (11/12/2024 2:35 PM CDT) Pathologist [facility] SCRIBED PT 20.4(A) 10.2 - 12.9 sec TXP NO LAB FOUND SCRIBED INR 1.8(A) 2.0 - 3.0 sec TXP NO LAB FOUND Blood 11/12/2024 2:35 PM CDT Result [facility] Suresh Verma MD LAB BLOOD ORDERABLES Fin al Result Performing Organization Address [facility] Co de Phone Number TXP NO [...] NO LAB FOUND SCRIBED eGFR in NonAfrican Malagasy 63 >90 TXP NO LAB FOUND Alb/glob [...] results best viewed via link to PDF [facility] Dermatopathology [place] [address], [address], [place] [address] [email or web address] Note to Patients: This report may [...] Submitting Physician Information: Kevin Dodd M.D. Dermatology [facility] ([facility]), [address], [address] [place] [address], DERMATOPATHOLOGY REPORT RESULTS DIAGNOSIS: SKIN, LEFT FOREHEAD, [...] Olmedo M.D. 11/14/2024 15:43:01 CLINICAL INFORMATION R/O [facility] SPECIMEN DATA MICROSCOPIC DESCRIPTION: Atypical keratinocytes are [...] exr/mat ICD-9 A; ZSD.1474 Clerical Data A; 46359 The characteristics of special, immunohistochemical, and immunofluorescence stains and in-situ hybridization tests performed by the [facility] were deemed acceptable in ongoing lead quality technician measures and in compliance with regulations drawn from the Clinical Laboratory Improvement Act zt4265 (CLIA '88). Control reactions for all stains performed were deemed adequate and appropriate by a pathologist prior to evaluation of patient tissue. Some diagnoses were rendered with the assistance of laboratory-developed tests utilizing analyte-specific reagents; the performance characteristic of these tests were determined by [facility] and are not cleared or approved by the US Food an Drug administration. Laboratory developed test may only be performed in a facility that is certified by the [facility] as a high-complexity laboratory under CLIA '88. These tests are used for clinical purposes and are not investigational. Result [facility] Kevin Dodd MD LAB PATHOLOGY ORDERABL ES Final Result [facility] [address] [place] [address] * (ABNORMAL) Protime-INR (11/06/2024) Pathologist [facility] INR 1.60(A) 0.90 - 1.10 Blood Crys [...] ORDERABLES Final Re sult Performing Organization Address [facility] de Phone Number [facility] * (ABNORMAL) [...] 35 Units/L [facility] SCRIBED eGFR in NonAfrican Malagasy 74 >=60 [facility] Globulin 2.5 1.9 - 3.7 g/dL (calc) [facility] Alb/glob ratio 1.5 1.0 - 2.5 [facility] Blood 11/05/2024 Alfredo Spaulding MD LAB BLOOD ORDERABLES Final Re sult Performing Organization Address [facility] de Phone Number [facility] * (ABNORMAL) Protime-INR (11/02/2024) Pathologist [facility] INR 3.00(A) 0.90 - 1.10 Blood Crys [...] Blood 10/29/2024 11:3 8 AM CDT Result [facility] Suresh Verma MD LAB BLOOD ORDERABLES Fin al Result Performing Organization Address [facility]/State/ZIP Co de Phone Number [facility] * [...] 35 Units/L [facility] SCRIBED eGFR in NonAfrican Malagasy 83 >=60 [facility] Blood 10/29/2024 11:3 8 AM CDT Result [facility] Suresh Verma MD LAB BLOOD ORDERABLES Fin al Result [facility] * (ABNORMAL) Protime-INR (10/24/2024) INR 3.70(A) 0.90 - 1.10 Blood Result [facility] Crys Avila MD LAB BLOOD ORDERABLES [...] Blood 10/23/2024 12:1 5 PM CDT Result [facility] Suresh Verma MD LAB BLOOD ORDERABLES Fin al Result Performing Organization Address [facility] Co de Phone Number TXP NO [...] ORDERABLES Fin al Result Performing Organization Address [facility] de Phone Number TXP NO LAB FOUND [...] NO LAB FOUND SCRIBED eGFR in NonAfrican Malagasy 59 >90 TXP NO LAB FOUND BUN_Creat Ratio 19.0 6 - 26 TXP NO LAB FOUND Alb/glob ratio 1.1 1.0 - 2.0 TXP N O LAB FOUND Blood 10/23/2024 Suresh Verma MD LAB BLOOD ORDERABLES Fin al Result Performing Organization Address [facility] de Phone Number TXP NO LAB FOUND * (ABNORMAL) CBC with auto differential (10/16/2024) SCRIBED WBC 6.4 3.8 - 10.8 k/cumm [facility] SCRIBED Hemoglobin 11.2(A) 13.2 - 17.1 g/dL [facility] SCRIBED Hematocrit 35.4(A) 38.5 - 50.0 % [facility] SCRIBED Platelets 191 140 - 400 k/cumm [facility] Blood 10/16/2024 Suresh Verma MD LAB BLOOD ORDERABLES Fin al Result Performing Organization Address [facility] de Phone Number [facility] * (ABNORMAL) Protime-INR (10/16/2024) SCRIBED PT 45.5(A) 9.0 - 11.5 sec [facility] SCRIBED INR 4.7(A) 2.0 - 3.0 sec [facility] Blood 10/16/2024 Suresh Verma MD LAB BLOOD ORDERABLES Fin al Result Performing Organization Address [facility] de Phone Number [facility] * (ABNORMAL) Comprehensive metabolic panel (10/16/2024) Pathologist [facility] SCRIBED Sodium 139 135 - 148 mmol/L [...] 35 Units/L [facility] SCRIBED eGFR in NonAfrican Malagasy 65 >60 [facility] A/G Ratio 1.4 1.0 - 2.5 [facility] Blood 10/16/2024 Suresh Verma MD LAB BLOOD ORDERABLES Ayo leyla Result - Final [facility] * (ABNORMAL) Protime-INR (10/11/2024) Pathologist [facility] INR 1.60(A) 0.90 - 1.10 Blood Crys Avila MD LAB BLOOD ORDERABLES Maia l Result * (ABNORMAL) CBC with auto differential (10/10/2024 1:05 PM CDT) Pathologist [facility] SCRIBED WBC 6.6 3.8 - 10.8 k/cumm [facility] SCRIBED Hemoglobin 11.1(A) 13.2 - 17.1 g/dL [facility] SCRIBED Hematocrit 33.8(A) 38.5 - 50.0 % [facility] SCRIBED Platelets 187 140 - 400 k/cumm [facility] Blood 10/10/2024 1:05 PM CDT Suresh Verma MD LAB BLOOD ORDERABLES Fin al Result Performing Organization Address [facility] Co de Phone Number [facility] * (ABNORMAL) Protime-INR (10/10/2024 1:05 PM CDT) SCRIBED PT 16.9(A) 9.0 - 11.5 sec [facility] SCRIBED INR 1.6(A) 2.0 - 3.0 sec [facility] Blood 10/10/2024 1:05 PM CDT Suresh Verma MD LAB BLOOD ORDERABLES Fin al Result Performing Organization Address [facility] de Phone Number [facility] * (ABNORMAL) Comprehensive [...] 35 Units/L [facility] SCRIBED eGFR in NonAfrican Malagasy 69 >=60 [facility] Blood 10/10/2024 1:05 PM CDT Suresh Verma MD LAB BLOOD ORDERABLES Fin al Result Performing Organization Address [facility] de Phone Number [facility] * (ABNORMAL) Protime-INR [...] - 400 k/cumm [facility] Blood 10/01/2024 Result [facility] Suresh Verma MD LAB BLOOD ORDERABLES Fin al Result Performing Organization Address [facility] de Phone Number [facility] * (ABNORMAL) Protime-INR (10/01/2024) SCRIBED PT 14.2(A) 9.0 - 11.5 sec [facility] SCRIBED INR 1.3 0.9 - 4.0 sec [facility] Blood 10/01/2024 Suresh Verma MD LAB BLOOD ORDERABLES Fin al Result Performing Organization Address City/State/[facility] Co de Phone Number [facility] * [...] 35 Units/L [facility] SCRIBED eGFR in NonAfrican Malagasy 64 >=60 [facility] Globulin 2.1 1.9 - 3.7 g/dL (calc) [facility] Alb/glob ratio 1.6 1.0 - 2.5 [facility] Blood 10/01/2024 us Suresh Verma MD LAB BLOOD ORDERABLES Fin al Result [facility] * Surgical pathology (09/25/2024 12:00 AM CDT) Tissue (Skin, shave biopsy) 09/25/2024 09/26/2024 4:30 AM CDT Narrative DERMATOPATHOLOGY CENTER - 09/27/2024 4:26 PM CDT EPIC results best viewed via link to PDF [facility] Dermatopathology Center [address], [address], [place] [address] [email or web address] Note to Patients: This report may [...] RECEIVED: 09/26/2024 REPORTED: 09/27/2024 Submitting Physician Information: Tin Pinedo, JUAN [address] [place], [place] [id number] , [id number] DERMATOPATHOLOGY REPORT RESULTS DIAGNOSIS: A. SKIN, LEFT [...] ag/anc ICD-9 ZSD.1474 ZSD.176 Clerical Data A; 88019 B; 74457 The characteristics of special, immunohistochemical, and immunofluorescence stains and in-situ hybridization tests performed by the [facility] were deemed acceptable in ongoing lead quality technician measures and in compliance with regulations drawn from the Clinical Laboratory Improvement Act il2853 (CLIA '88). Control reactions for all stains performed were deemed adequate and appropriate by a pathologist prior to evaluation of patient tissue. Some diagnoses were rendered with the assistance of laboratory-developed tests utilizing analyte-specific reagents; the performance characteristic of these tests were determined by [facility] and are not cleared or approved by the [place] Food an Drug administration. Laboratory developed test may only be performed in a facility that is certified by the [facility] as a high-complexity laboratory under CLIA '88. These tests are used for clinical purposes and are not investigational. us Tin MARTINEZ LAB PATHOLOGY ORDERABL ES Final Result Performing Organization Address City/[facility]/ZIP Co de Phone Number DERMATOPATHOLOGY CENTER [address] [place] [address] * (ABNORMAL) CBC with auto differential (09/24/2024 [...] Units/L EXTERNAL LAB SCRIBED eGFR in NonAfrican Malagasy 69 >90 EXTERNAL LAB Blood 09/24/2024 1:30 PM CDT us Suresh Verma MD LAB BLOOD ORDERABLES Shawn bullock Result Performing Organization Address [facility]/ZIP Co de Phone Number EXTERNAL LAB * [...] ORDERABLES Fin al Result Performing Organization Address City/[facility]/ZIP Co de Phone Number [facility] * (ABNORMAL) Protime-INR (09/17/2024) Pathologist [facility] SCRIBED PT 19.5(A) 9.0 - 11.5 sec [facility] SCRIBED INR 1.9(A) 2.0 - 3.0 sec [facility] Blood 09/17/2024 Suresh Verma MD LAB BLOOD ORDERABLES Fin al Result Performing Organization Address [facility] Co de Phone Number [facility] * [...] 35 Units/L [facility] SCRIBED eGFR in NonAfrican Malagasy 57 >60 [facility] Urea nitrogen ur creatine ur ratio 16 6 - 22 [facility] A/G Ratio 1.4 1.0 - 2.5 [facility] Blood 09/17/2024 Result [facility] Suresh Verma MD LAB BLOOD ORDERABLES Fin al Result [facility] * (ABNORMAL) Protime-INR (09/11/2024) Pathologist [facility] INR 1.90(A) 0.90 - 1.10 Blood Result [facility] Crys Avila MD LAB BLOOD ORDERABLES Maia l Result * (ABNORMAL) CBC with auto differential (09/10/2024) Pathologist [facility] SCRIBED WBC 7.2 3.8 - 10.8 k/cumm SCRIBED Hemoglobin 10.7(A) 13.2 - 17.1 g/dL SCRIBED Hematocrit 33.1(A) 38.5 - 50.0 % SCRIBED Platelets 187 140 - 400 k/cumm Blood 09/10/2024 Result [facility] Suresh Verma MD LAB BLOOD ORDERABLES Fin al Result * (ABNORMAL) Protime-INR (09/10/2024) Pathologist [facility] SCRIBED PT 19.5(A) 9.0 - 11.5 sec SCRIBED INR 1.9(A) 0.9 - 1.1 sec Blood 09/10/2024 Result [facility] Sruesh Verma MD LAB BLOOD ORDERABLES Fin al Result * (ABNORMAL) Comprehensive metabolic panel (09/10/2024) Pathologist [facility] SCRIBED Sodium [...] - 35 Units/L SCRIBED eGFR in NonAfrican Malagasy 55 >60 BUN_Creat Ratio 17 6 - 22 Alb/glob ratio 1.4 1.0 - 2.5 Blood 09/10/2024 us Suresh Verma MD LAB BLOOD ORDERABLES [facility] al Result * (ABNORMAL) Hemoglobin A1c (08/23/2024 4:33 PM CDT) Pathologist [facility] Hgb A1C 7.1(H) 4.0 - 5.6 % Estimated Average Glucose 157 mg/dL [facility] Comment: The ADA recommends reporting an [...] LAB BLOOD ORDERABL ES Final Result [facility] Department [place] [address] * Flexible Sigmoidoscopy (05/29/2024 9:01 AM SUPERVISOR COMPRESSED YEAST) Anatomical Region Laterality Modality Other Narrative Procedure Note Robles Murphy MD - 05/29/2024 9:01 AM CST [facility] Patient Name: Cindy Severino Procedure Date: 05/29/2024 9:01 AM Date of : 1950 Admit Type: Inpatient Age: 73 Gender: Male Attending MD: Marquise Latham Room: [facility] ENDOSCOPY Note Status: Finalized Procedure: Flexible Sigmoidoscopy Indications: Rectal hemorrhage, Abnormal CT of the GI tract Referring MD: Suresh Verma M.D. Providers: Robles Murphy M.D., Royal Burgos M.D. Medicines: Monitored Anesthesia Care Complications: No immediate complications. Estimated Blood Loss: Estimated blood loss was minimal. Procedure: The benefits, risks, and alternatives to theprocedure and sedation were discussed and informed consentwas obtained. The [id number] endoscope was introduced through the anus [...] * (ABNORMAL) Lipid panel (05/26/2024 5:30 PM SUPERVISOR COMPRESSED YEAST) Cholesterol 180 30 - 199 mg/dL Comment: [...] revised on 2018. Triglycerides 161(H) <=149 mg/dL [facility] Comment: Interpretive Data Ages < or [...] on 2018. HDL 31(L) >=40 mg/dL [facility] Comment: Interpretive Data Ages < or [...] 2018. LDL, calculated 120 <=129 mg/dL [facility] Comment: Interpretive Data Ages < or [...] [facility] Blood 05/26/2024 5:30 PM SUPERVISOR COMPRESSED YEAST 05/26/2024 5:47 PM SUPERVISOR COMPRESSED YEAST Narrative [facility] - 05/27/2024 1:24 AM SUPERVISOR COMPRESSED YEAST This lipid panel was automatically ordered due to a significant change in Troponin. The dietary status of the patient at the collection time should be correlated with the lipid results. us Abel Mak MD LAB BLOOD ORDERABLES Maia guidry Result [facility] Department [place] [address] * Hepatitis C (HCV) RNA PCR, quantitative Blood (04/17/2024 6:26 PM SUPERVISOR COMPRESSED YEAST) HCV RNA result Not Detected [facility] Comment: The quantifiable range of this assay is 15 IU/mL to 100,000,000 IU/mL (1.18 log IU/mL to 8.00 log IU/mL). Testing was performed by the [employer] 6800 HCV Test ([employer] Testing performed at [facility] Current Interpretive Data was last revised on 2021 Blood 04/17/2024 6:26 PM SUPERVISOR COMPRESSED YEAST 04/17/2024 6:46 PM SUPERVISOR COMPRESSED YEAST Olinda Harrell MD LAB MICROBIOLOGY - GENE RAL ORDERABLES Final Result [facility] Department [place] [address] [facility] * COLONOSCOPY REPORT (10/16/2013) Anatomical Region Laterality Modality Other Narrative 10/16/2013 Ordered by an unspecified provider. 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 Insurance [facility] MEDICARE MEDICARE [facility] MEDICARE MEDIC[facility] AETNA MEDICARE MEDICARE [facility]EARCH AETNA MEDICARE Advance Directives For more information, please contact: [phone] Documents on File Type Date Recorded Patient [employer] Bi Developer Expl anation ADVANCE DIRECTIVE 12/07/2012 12:00 AM EVIE LAMBERT WILL ADVANCE DIRECTIVE 12/07/2012 12:00 AM JIMENA R OF [employer]/MEDICAL * Full Code (Latest Code Status [...] 3:02 PM 04/02/2023 5:36 PM Care Teams Patent Attorney Relationship Specialty Start Date End Date Tika Araujo MD PCP - General Nurse Practitioner 03/27/20 Americo Mcneil MD [facility] [phone] [place] [address] PCP - Home Infusion Attending Infectious Diseases 10/15/24 Suresh Verma MD Flap Presser Transplant 09/16/18 Pao Allen, RN VAD Coordinator Transplant 03/20/19 Emmy Alicea Primary Tassel Maker Transplant 08/14/24 Korey Warren, [facility] Pharmacist Pharmacy 10/23/24
--- NOTE | 2024-12-09 02:33 | ED.GENADULT ---
HPI - General Adult General Chief complaint: Unspecified Stated complaint: Hallucinations/Increase in abx recently Time Seen by Provider: 12/09/24 02:09 History of Present Illness HPI narrative: Patient is a 74-year-old male who presents to the emergency department this evening complaining of visual hallucinations. Patient believes that this is a side effect of a new antibiotics that he was recently started on by his infectious disease doctor to prevent LVAD lining infection per patient. Patient states that he is seeing things that he no are intact there such as fish swimming underwater. Patient states that the symptoms started earlier this afternoon. Patient also states that they recently increased his levothyroxine and per , some of his medications were taken away due to an increase in his liver enzymes and concern for liver damage. Patient currently denying any active chest pain but states that earlier in the afternoon when the hallucinations started he did have mild chest pressure which has then resolved. This was approximately over 8 hours ago. He is also denying any shortness of breath, nausea vomiting or abdominal pain. Denies any urinary symptoms including dysuria or hematuria. No additional symptoms or concerns at this time. Related Data Home Medications ?Medication ?Instructions ?Recorded ?Confirmed ?Last Taken ?Type acetaminophen 650 mg tablet 650 mg PO Q6H PRN Pain 06/11/21 06/11/21 Unknown History albuterol sulfate 90 mcg/actuation 2 puff inhalation QID 06/11/21 06/11/21 Unknown History aerosol inhaler allopurinol 100 mg tablet 100 mg PO DAILY 06/11/21 06/11/21 Unknown History amlodipine 10 mg tablet 10 mg PO DAILY 06/11/21 06/11/21 Unknown History aspirin 325 mg tablet 325 mg PO DAILY 06/11/21 06/11/21 Unknown History carvedilol 25 mg tablet 25 mg PO BID 06/11/21 06/11/21 Unknown History ergocalciferol (vitamin D2) 50,000 1 unit PO WEEKLY 06/11/21 06/11/21 Unknown History unit tablet ferrous sulfate 325 mg (65 mg 325 mg PO DAILY 06/11/21 06/11/21 Unknown History iron) tablet hydralazine 50 mg tablet 50 mg PO TID 06/11/21 06/11/21 Unknown History insulin aspart U-100 100 unit/mL 1 sliding scale dose subcut 06/11/21 06/11/21 Unknown History subcutaneous solution (Novolog USEASDIRECTD U-100 Insulin aspart) insulin glargine 100 unit/mL (3 30 unit subcut HS 06/11/21 06/11/21 Unknown History mL) subcutaneous pen (Basaglar KwikPen U-100 Insulin) isosorbide mononitrate 60 mg 90 mg PO DAILY 06/11/21 06/11/21 Unknown History tablet,extended release 24 hr levothyroxine 75 mcg tablet 75 mcg PO DAILY 06/11/21 06/11/21 Unknown History ccpxng-ywnqdlxd-qreobuh 3 tablet PO TID 06/11/21 06/11/21 Unknown History 8,000-30,000-30,000 unit tablet losartan 50 mg tablet 100 mg PO DAILY 06/11/21 06/11/21 Unknown History magnesium oxide 800 mg PO BID 06/11/21 06/11/21 Unknown History multivit with minerals-iron 18 1 tablet PO DAILY 06/11/21 06/11/21 Unknown History mg-folic ac 400 mcg-vit K 25 mcg tablet (Adults Multivitamin) nitroglycerin 0.4 mg sublingual 0.4 mg sublingual Q5-15M PRN Chest 06/11/21 06/11/21 Unknown History tablet Pain pantoprazole 40 mg tablet,delayed 40 mg PO QAM 06/11/21 06/11/21 Unknown History release (Protonix) rosuvastatin 20 mg tablet (Crestor) 20 mg PO DAILY 06/11/21 06/11/21 Unknown History tamsulosin 0.4 mg capsule (Flomax) 0.4 mg PO DAILY 06/11/21 06/11/21 Unknown History torsemide 20 mg tablet 20 mg PO QAM 06/11/21 06/11/21 Unknown History trazodone 50 mg tablet 50 mg PO HS PRN Sleep 06/11/21 06/11/21 Unknown History ustekinumab 45 mg/0.5 mL 45 mg subcut ONCE 06/11/21 06/11/21 Unknown History subcutaneous solution (Stelara) warfarin 4 mg tablet 5 mg PO DAILY 06/11/21 06/11/21 Unknown History Allergies Allergy/AdvReac Type Severity Reaction Status Date / Time Sulfa (Sulfonamide Allergy Mild Verified 06/11/21 13:42 Antibiotics) levofloxacin Allergy Unknown Verified 06/11/21 13:42 Penicillins Allergy Unknown Verified 06/11/21 13:42 Quinolones Allergy Unknown Verified 06/11/21 13:42 Review of Systems Review of Systems: All systems are reviewed and are negative unless stated otherwise in the HPI. Exam Narrative: General: Alert, awake, afebrile, in no acute distress. HEENT: PERRL, no rhinorrhea, no post nasal drip, oropharynx clear. Neck: Trachea midline, no JVD, no lymphadenopathy. Cardiovascular: Regular rate and rhythm, no murmurs, rubs or gallops, no peripheral edema, central line versus PICC line to the right upper chest, LVAD connected to left lower chest/left upper abdomen. Dressing noted over the area, dressing appears clean and dry. Respiratory: Clear to auscultation bilaterally, no tachypnea, no wheezing, no rhonchi, no rubs, no respiratory distress. Abdomen: Soft, nontender, nondistended, no rebound, no guarding, no peritoneal signs. Musculoskeletal: No joint swelling or deformity, normal muscle tone. Skin: No rashes or petechia, no signs of infection. Psychiatric: Alert and oriented, normal behavior and judgment for situation. Neurological: Alert and oriented to person, place, and time. Follows all commands. Moving all extremities spontaneously, 5/5 motor strength in the bilateral upper and lower extremity, sensation intact and equal in the bilateral upper and lower extremity, cranial nerves 2-12 grossly intact. No focal deficits, speech is clear and fluent. Course Vital Signs Vital signs: Vital Signs Temperature 98.2 F 12/09/24 02:12 Pulse Rate 69 12/09/24 02:12 Respiratory Rate 12 12/09/24 02:12 Blood Pressure 170/100 H 12/09/24 02:12 Pulse Oximetry 100 12/09/24 02:12 Oxygen Delivery Room Air 12/09/24 02:12 Temperature 98.2 F 12/09/24 02:12 Pulse Rate 72 12/09/24 05:51 Respiratory Rate 18 12/09/24 05:51 Blood Pressure 153/91 H 12/09/24 05:51 Pulse Oximetry 100 12/09/24 05:51 Oxygen Delivery Room Air 12/09/24 02:12 Medical Decision Making MDM Narrative Medical decision making narrative: The patient was evaluated by myself in the emergency department. History is obtained from patient who is an independent historian and physical exam was performed. External medical records were reviewed at this time. IV was established and pertinent tests were ordered. EKG was obtained which revealed sinus rhythm rate of 66 beats per minute although EKG is difficult to interpret due to baseline artifact from patient's LVAD. EKG was independently interpreted by me and is currently pending official cardiology read. Laboratory results obtained revealing a low magnesium of 1.3, elevated TSH of 10.10 and a proBNP of 1680 which is within normal range after accounting for patient's age, otherwise remainder of the blood work is unremarkable. Urinalysis unremarkable. Urine drug screen test did return back positive for opiates. Patient was asked regarding this and if he has been taking any narcotics, however, patient denies. States the only thing that he can think of that he takes is trazodone which he takes at night to help him sleep. Patient was informed that if he is taking a narcotic this could be contributing to his hallucinations specially in his age group. He was also administered 2 g of IV magnesium at this time for his hypomagnesemia. Informed of his TSH level and that he will need to follow-up with his primary care physician as this may indicate a low thyroid hormone level and he may need to have his levothyroxine dose readjusted. Free T4 is currently pending. Imaging studies obtained included CXR and CT brain without IV contrast which was independently interpreted by me revealing no acute process, which is pending final radiology interpretation. Differential diagnosis considerations include delirium secondary to infectious process, medication side effect, intracranial hemorrhage versus malignancy Comorbidities impacting this visit include recent change in multiple medications. I have evaluated and discussed social determinants of health with the patient that could potentially impact subsequent diagnosis and treatment plans. On repeat assessment of the patient, reevaluation revealed that the patient is doing well and is in no acute distress. Patient symptoms have improved since he arrived to our emergency department. Repeat vital signs were all reviewed and noted to be stable. Differential diagnosis and treatment plan were discussed with the patient at bedside. Patient agrees with discussion and after shared medical decision making agrees with discharge. All questions were answered to the patient's satisfaction. Patient will follow up with his PCP in 3-5 days. Patient was provided with strict return precautions and instructed to return to the emergency department if any new or worsening symptoms develop. The patient was discharged in stable condition. Vital Signs Vital Signs: Vital Signs Temperature 98.2 F 12/09/24 02:12 Pulse Rate 69 12/09/24 02:12 Respiratory Rate 12 12/09/24 02:12 Blood Pressure 170/100 H 12/09/24 02:12 Pulse Oximetry 100 12/09/24 02:12 Oxygen Delivery Room Air 12/09/24 02:12 Temperature 98.2 F 12/09/24 02:12 Pulse Rate 72 12/09/24 05:51 Respiratory Rate 18 12/09/24 05:51 Blood Pressure 153/91 H 12/09/24 05:51 Pulse Oximetry 100 12/09/24 05:51 Oxygen Delivery Room Air 12/09/24 02:12 Lab Data 12/09/24 02:28 12/09/24 03:15 Labs: Lab Results 12/09/24 12/09/24 12/09/24 Range/Units 02:28 02:32 03:15 WBC 8.5 (4.5-10.0) K/mm3 RBC 4.16 L (4.6-6.20) M/mm3 Hgb 13.0 L (14.0-18.0) g/dL Hct 39.5 L (42.0-52.0) % MCV 95.0 (80-100) fl MCH 31.3 (26-34) pg MCHC 32.9 (32-36) g/dl RDW 14.2 (11.5-14.5) % Plt Count 188 (150-375) k/mm3 MPV 10.7 H (7.4-10.4) fl Immature Gran % (Auto) 0.6 H (0-0.5) % Neut % (Auto) 68.7 (45.5-73.1) % Lymph % (Auto) 11.2 L (18.3-44.2) % [place] % (Auto) 9.8 H (2.6-8.5) % Eos % (Auto) 8.8 H (0-4.4) % Baso % (Auto) 0.9 (0.2-1.2) % Lymph # (Auto) 0.95 (0.9-3.2) K/mm3 [place] # (Auto) 0.8 H (0.1-0.6) K/mm3 Eos # (Auto) 0.8 H (0-0.3) K/mm3 Baso # (Auto) 0.1 (0.0-0.1) K/mm3 Abs Immat Gran (auto) 0.05 H (0.00-0.031) K/mm3 Absolute Neuts (auto) 5.8 (1.3-6.7) K/mm3 Absolute Nucleated RBC 0.000 (0.0-0.012) K/mm3 Nucleated RBC % 0.0 (0.0-0.2) % PT 15.9 H (11.1-14.7) Seconds INR 1.3 APTT 36.4 (22.3-36.8) Seconds Sodium 139 (137-145) mmol/L Potassium 4.3 (3.4-5.0) mmol/L Chloride 103 (98-107) mmol/L Carbon Dioxide 25 (22-30) mmol/L Anion Gap 11 (4-12) mmol/L BUN 22 H (9-20) mg/dL Creatinine 1.14 (0.7-1.3) mg/dL Estim Creat Clear Calc 60 ml/min Estimated GFR > 60 (59 - ) Glucose 299 H (65-110) mg/dL Lactic Acid 1.6 (0.7-2.0) mmol/L Calcium 8.7 (8.4-10.2) mg/dL Magnesium Cancelled 1.3 L Total Bilirubin 0.6 (0.2-1.3) mg/dL AST 52 (17-59) U/L ALT 57 H (6-50) U/L Alkaline Phosphatase 159 H (38-126) U/L Ammonia < 9 L (9-30) umol/L Troponin I Cancelled 0.020 NT-Pro-B Natriuret Pep Cancelled 1680 H Total Protein 7.2 (6.3-8.2) g/dL Albumin 4.1 (3.5-5.1) g/dL TSH (Reflex) 10.100 H (0.465-4.68) uIU/mL Free T4 1.11 (0.78-2.19) ng/dL Total T3 Pending Urine Color Yellow (Yellow) Urine Appearance Clear (Clear) Urine pH 5.5 (5.0-9.0) Ur Specific Orange 1.016 (1.001-1.035) Urine Protein 2+ H (Negative) mg/dL Urine Glucose (UA) 1+ H (Negative) mg/dL Urine Ketones Negative (Negative) mg/dL Ur Blood (Man) Trace (Negative) Urine Nitrate Negative (Negative) Urine Bilirubin Negative (Negative) Urine Urobilinogen 0.2 (<2.0) mg/dL Leukocyte Esterase Rfl Negative (Negative) YAMILA/UL Urine RBC 3-5 H (0-2) /hpf Urine WBC 0-5 (0-3) /hpf Ur Squamous Epith Cells None seen (Few) /hpf Urine Bacteria None seen /hpf Urine Casts 0-2 Salicylates < 1.0 L (2-20) mg/dL Urine Opiates Screen Positive A (Negative) Urine Methadone Screen Negative (Negative) Acetaminophen < 10 L (10-30) ug/mL Ur Barbiturates Screen Negative (Negative) Ur Phencyclidine Scrn Negative (Negative) Ur Amphetamine Screen Negative (Negative) U Benzodiazepines Scrn Negative (Negative) Urine Cocaine Screen Negative (Negative) U Cannabinoids Screen Negative (Negative) Ethyl Alcohol < 10 (<10) mg/dL Discharge Plan Discharge Clinical Impression: Hallucination, visual, Drug side effects, Hypothyroidism, Hypomagnesemia Patient Disposition: Home Condition: Improved Instructions: Antibiotic Form, Hypothyroidism (ED), Hypomagnesemia (ED), Hallucinations (ED) Additional Instructions: Please follow-up with your family doctor within the next 3-5 days. You need to contact your infectious disease doctor regarding antibiotic that you were started on which precipitated your visual hallucinations as this could be a side effect of the medication. Your thyroid stimulating hormone (TSH) level was elevated today at a level of 10 which could indicate that your thyroid hormone levels are low, you need to follow-up with your family doctor regarding this as you may need to have your levothyroxine dose readjusted. Return to the emergency department if any new or worsening symptoms develop. Your drug test also did return back positive for opiates. If you are taking any pain medications including narcotics, this may cause hallucinations as well. Patient Language: Upper Sorbian Prescriptions: No Action losartan 50 mg Tablet 100 mg PO DAILY carvedilol 25 mg Tablet 25 mg PO BID aspirin 325 mg Tablet 325 mg PO DAILY allopurinol 100 mg Tablet 100 mg PO DAILY acetaminophen 650 mg Tablet 650 mg PO Q6H PRN (Reason: Pain) ergocalciferol (vitamin D2) 50,000 unit Tablet 1 unit PO WEEKLY levothyroxine 75 mcg Tablet 75 mcg PO DAILY isosorbide mononitrate 60 mg Tablet Extended Release 24 Hr 90 mg PO DAILY amlodipine 10 mg Tablet 10 mg PO DAILY insulin aspart U-100 [Novolog U-100 Insulin aspart] 100 unit/mL Solution 1 sliding scale dose SUBCUT USEASDIRECTD ferrous sulfate 325 mg (65 mg iron) Tablet 325 mg PO DAILY hydralazine 50 mg Tablet 50 mg PO TID albuterol sulfate 90 mcg/actuation Hfa Aerosol Inhaler 2 puff INHALATION QID Basaglar KwikPen U-100 Insulin 100 unit/mL (3 mL) Insulin Pen 30 unit SUBCUT HS Pancrelipase 8,000-30,000- 30,000 unit Tablet 3 tablet PO TID nitroglycerin 0.4 mg Tablet, Sublingual 0.4 mg SUBLINGUAL Q5-15M PRN (Reason: Chest Pain) magnesium oxide 400 mg magnesium Capsule 800 mg PO BID Adults Multivitamin 18 mg iron-400 mcg-25 mcg Tablet 1 tablet PO DAILY torsemide [Demadex] 20 mg Tablet 20 mg PO QAM trazodone [Desyrel] 50 mg Tablet 50 mg PO HS PRN (Reason: Sleep) warfarin [Coumadin] 4 mg Tablet 5 mg PO DAILY tamsulosin [Flomax] 0.4 mg Capsule 0.4 mg PO DAILY pantoprazole [Protonix] 40 mg Tablet,Delayed Release (Dr/Ec) 40 mg PO QAM rosuvastatin [Crestor] 20 mg Tablet 20 mg PO DAILY Stelara 45 mg/0.5 mL Solution 45 mg SUBCUT ONCE Rx Instructions: every three months Follow-up/Referrals: Gayle,ODELL Rivera [Primary Care Provider] - 3 Days Time of Disposition: 05:04
--- OUTSIDE RECORDS SUMMARY | 2024-12-09 02:33 | XMS_ITS | Encounter Summary ---
Author Organization [facility] Address [address] [place] [address] Phone Care Team Providers Care Manager Report Name Role Phone Collin John MD Primary Care Provider [phone] Prasanna Newton DO Primary Care Provider [phone] Marietta Carroll RN Unavailable Jacque Suresh Miller MD Unavailable [phone] Pao Allen RN Unavailable [phone] Tika Araujo MD Primary Care Provider [phone] Tika Araujo MD Primary Care Provider [phone] Emmy Alicea Unavailable Unavailable Americo Mcneil MD Unavailable [phone] Korey Warren 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 Gender Identity Not on file Sexual [...] documented as of this encounter Care Teams Manager Report Relationship Specialty Start Date End Date Collin John MD [id number] [place] [address] PCP - General 07/13/16 02/24/20 Prasanna Newton DO [address] [place] [address] PCP - General 06/07/06 07/12/16 Tika Araujo MD PCP - General Nurse Practitioner 03/27/20 Tika Araujo MD PCP - General 02/25/20 03/26/20 Americo Mcneil MD [address] [facility] [id number] [place] [address] PCP - Home Infusion Attending Infectious Diseases 10/15/24 Marietta Carroll, SANKET Registered Nurse Computer Technologist 10/31/17 03/20/19 Suresh Verma MD Laborer Petroleum Refinery Transplant 09/16/18 Pao Allen, RN VAD Coordinator Transplant 03/20/19 Emmy Alicea Primary Fire Boss Transplant 08/14/24 Korey Warren [facility] Pharmacist Pharmacy 10/23/24 documented as of this encounter
--- OUTSIDE RECORDS SUMMARY | 2024-12-09 02:33 | XMS_ITS | Encounter Summary ---
Author Organization [facility] Address [address] [place] [address] Phone Care Team Providers Care Osteopathy Doctor Name Role Phone Collin John MD Primary Care Provider [phone] Prasanna Newton DO Primary Care Provider [phone] Marietta Carroll RN Unavailable Jacque Suresh Miller MD Unavailable [phone] Pao Allen RN Unavailable [phone] Tika Araujo MD Primary Care Provider [phone] Tika Araujo MD Primary Care Provider [phone] Emmy Alicea Unavailable Unavailable Americo Mcneil MD Unavailable [phone] Korey Warren [facility] Unavailable Unavail able Encounter Details Date Type Department Care Team (Late st Contact Info) Description 02/26/2016 Orders Only [facility] IM CAR CLINCONV Provider, MD Crys [address] [place] [address] Social History Tobacco Use Types Packs/Day Years Used Date Smoking Tobacco: Never Alcohol Use Standard Drinks/Week Comments No 0 (1 standard drink = 0.6 oz pur e alcohol) Sex and Gender Information Value Date Recorded Sex Assigned at Not on file 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 Gender Identity Not on file Sexual Orientation [...] documented as of this encounter Care Teams Osteopathy Doctor Relationship Specialty Start Date End Date Collin John MD [id number] [place] [address] PCP - General 07/13/16 02/24/20 Prasanna Newton DO [address] [place] [address] PCP - General 06/07/06 07/12/16 Tika Araujo MD PCP - General Nurse Practitioner 03/27/20 Tika Araujo MD PCP - General 02/25/20 03/26/20 Americo Mcneil MD [address] [facility] [id number] [place] [address] PCP - Home Infusion Attending Infectious Diseases 10/15/24 Marietta Carroll, SANKET Registered Nurse Hide Puller 10/31/17 03/20/19 Suresh Verma MD Utility Engineer Transplant 09/16/18 Pao Allen, RN VAD Coordinator Transplant 03/20/19 Emmy Alicea Primary Drag Down Transplant 08/14/24 Korey Warren [facility] Pharmacist Pharmacy 10/23/24 documented as of this encounter
--- OUTSIDE RECORDS SUMMARY | 2024-12-09 02:33 | XMS_ITS | Encounter Summary ---
Author Organization [facility] Healthcare Address [address] [place] [address] Care Team Providers Care Pattern Ruler Name Role Phone Suresh Verma MD Unavailable [phone] Pao Allen RN Unavailable [phone] Tika Araujo MD Primary Care Provider [phone] Emmy Alicea Unavailable Unavailable Americo Mcneil MD Unavailable [phone] Korey Warren [facility] Unavailable Unavail able Encounter Details Date Type Department Care Team (Late st Contact Info) Description 09/28/2024 Telephone [facility] Home Care Services [address] [facility] [address] [place] [address] Korey Warren [facility] Social History Tobacco Use Types Packs/Day Years Used Date Smoking Tobacco: Never Passive Smoke Exposure: Never Smokeless Tobacco: Never Alcohol Use Standard Drinks/Week Comments No 0 (1 standard drink = 0.6 oz pur e alcohol) [facility] Utilities Answer Date Recorded In the past [...] any time in the past 12 m [facility], were you homeless or [...] on file 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 Gender Identity Not on file Sexual Orientation [...] documented as of this encounter Care Teams Pattern Ruler Relationship Specialty Start Date End Date Tika Araujo MD PCP - General Nurse Practitioner 03/27/20 Americo Mcneil MD [address] [id number] [place] [address] PCP - Home Infusion Attending Infectious Diseases 10/15/24 Suresh Verma MD Air Conditioning Unit Assembler Transplant 09/16/18 Pao Allen, RN VAD Coordinator Transplant 03/20/19 Emmy Alicea Primary Environmental Web Crawler Transplant 08/14/24 Korey Warren, [facility] Pharmacist Pharmacy 10/23/24 documented as of this encounter
--- OUTSIDE RECORDS SUMMARY | 2024-12-09 02:33 | XMS_ITS | Encounter Summary ---
Author Organization [facility] Address [address] [place] [address] Phone Care Team Providers Care Police Patrol Officer Name Role Phone Suresh Verma MD Unavailable [phone] Pao Allen RN Unavailable [phone] Tika Araujo MD Primary Care Provider [phone] Emmy Alicea Unavailable Unavailable Americo Mcneil MD Unavailable [phone] Korey Warren [facility] Unavailable Unavail able Encounter Details Date Type Department Care Team (Late st Contact Info) Description 09/21/2024 Telephone [facility] Infectious Diseases [address] [place] [address] [address] [place] [address] Destinee Peraza RMA Social History Tobacco Use Types Packs/Day Years Used Date Smoking Tobacco: Never Passive Smoke Exposure: Never Smokeless Tobacco: Never Alcohol Use Standard Drinks/Week Comments No 0 (1 standard drink = 0.6 oz pur e alcohol) [facility] Utilities Answer Date Recorded In the past 12 months has [employer] electric, gas, oil, or water company threatened [...] How often do you attend chur or jainism services? More than 4 times per year 08/25/2024 Do you belong to any clubs o r organizations such as adventism groups, unions, fraternal or athletic groups, or [...] place to sleep or slept in a usp (including now)? Patient refused 03/23/2023 Housing Stability [...] any time in the past 12 m [facility], were you homeless or living in a usp (including now)? No 08/25/2024 Personal Safety Answer Date Recorded Have you ever been in or are you currently in a harmful physical or emotional relationship or is someone making you feel afraid or unsafe? 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 documented as of this encounter Care Teams Police Patrol Officer Relationship Specialty Start Date End Date Tika Araujo MD PCP - General Nurse Practitioner 03/27/20 Americo Mcneil MD [address] [facility] [id number] [place] [address] PCP - Home Infusion Attending Infectious Diseases 10/15/24 Suresh Verma MD Sheet Metal Smith Transplant 09/16/18 Pao Allen, RN VAD Coordinator Transplant 03/20/19 Emmy Alicea Primary Employee Representative Transplant 08/14/24 Korey Warren [facility] Pharmacist Pharmacy 10/23/24 documented as of this encounter
--- OUTSIDE RECORDS SUMMARY | 2024-12-09 02:33 | XMS_ITS | Encounter Summary ---
Author Organization [facility] Address [address] [place] [address] Phone Care Team Providers Care Nylon Winder Name Role Phone Collin John MD Primary Care Provider [phone] Prasanna Newton DO Primary Care Provider [phone] Marietta Carroll RN Unavailable Jacque Suresh Miller MD Unavailable [phone] Pao Allen RN Unavailable [phone] Tika Araujo MD Primary Care Provider [phone] Tika Araujo MD Primary Care Provider [phone] Emmy Alicea Unavailable Unavailable Americo Mcneil MD Unavailable [phone] Korey Warren [facility] Unavailable Unavail able Encounter Details Date Type Department Care Team (Late st Contact Info) Description 01/15/2015 Orders Only [facility] ProviderCrys MD [address] [place] [address] Social History Tobacco Use Types Packs/Day Years Used Date Smoking Tobacco: Never Alcohol Use Standard Drinks/Week Comments No 0 (1 standard drink = 0.6 oz pur e alcohol) Sex and Gender Information Value Date Recorded Sex Assigned at Not on file 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 Gender Identity Not on file Sexual Orientation [...] documented as of this encounter Care Teams Nylon Winder Relationship Specialty Start Date End Date Collin John MD [address] [address] PCP - General 07/13/16 02/24/20 Prasanna Newton DO [address] [address] PCP - General 06/07/06 07/12/16 Tika Araujo MD PCP - General Nurse Practitioner 03/27/20 Tika Araujo MD PCP - General 02/25/20 03/26/20 Americo Mcneil MD [address] [facility] [phone] [place] [address] PCP - Home Infusion Attending Infectious Diseases 10/15/24 Marietta Carroll, SANKET Registered Nurse Developmental Services Worker 10/31/17 03/20/19 Suresh Verma MD Mechanical Assembler Transplant 09/16/18 Pao Allen, RN VAD Coordinator Transplant 03/20/19 Emmy Alicea Primary Janitorial Maintenance Worker Transplant 08/14/24 Korey Warren [facility] Pharmacist Pharmacy 10/23/24 documented as of this encounter
--- OUTSIDE RECORDS SUMMARY | 2024-12-09 02:33 | XMS_ITS | Encounter Summary ---
Author Organization [facility] Address [address] [place] [address] Phone Care Team Providers Care Javascript Developer Name Role Phone Collin John MD Primary Care Provider [phone] Marietta Carroll RN Unavailable Jacque karthikble Suresh Verma MD Unavailable [phone] Pao Allen RN Unavailable [phone] Tika Araujo MD Primary Care Provider [phone] Tika Araujo MD Primary Care Provider [phone] Emmy Alicea Unavailable Unavailable Americo Mcneil MD Unavailable [phone] Korey Warren [facility] Unavailable Unavail able Encounter Details Date Type Department Care Team (Late st Contact Info) Description 12/10/2016 Orders Only [facility] Provider, MD Crys [address] [place] [address] Social History Tobacco Use Types Packs/Day Years Used Date Smoking Tobacco: Never Alcohol Use Standard Drinks/Week Comments No 0 (1 standard drink = 0.6 oz pur e alcohol) Sex and Gender Information Value Date Recorded Sex Assigned at Not on file 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 Gender Identity Not on file Sexual Orientation [...] documented as of this encounter Care Teams Javascript Developer Relationship Specialty Start Date End Date Collin John MD [address] [address] PCP - General 07/13/16 02/24/20 Tika Araujo MD PCP - General Nurse Practitioner 03/27/20 Tika Araujo MD PCP - General 02/25/20 03/26/20 Americo Mcneil MD [address] [facility] [phone] [place] [address] PCP - Home Infusion Attending Infectious Diseases 10/15/24 Marietta Carroll, RN Registered Nurse Production Proofreader 10/31/17 03/20/19 Suresh Verma MD Floral Designer Transplant 09/16/18 Pao Allen, RN VAD Coordinator Transplant 03/20/19 Emmy Alicea Primary Fraternity Adviser Transplant 08/14/24 Korey Warren, [facility] Pharmacist Pharmacy 10/23/24 documented as of this encounter
--- OUTSIDE RECORDS SUMMARY | 2024-12-09 02:33 | XMS_ITS | Encounter Summary ---
Author Organization [facility] Address [address] [place] [address] Care Team Providers Care Procurement Forester Name Role Phone Araceli Perez MD Unavailable Lance Hernandez MD Unavailable [phone] Timmy Leblanc MD Unavailable [phone] Ibrahima Wade MD Unavailable [phone] Obi Sharma OD Unavailable Americo Mcneil MD Unavailable [phone] Suresh Verma MD Unavailable [phone] Tika Araujo NP Primary Care Provider [phone] Encounter Details Date Type Department Care Team (Late st Contact Info) Description 08/06/2024 Hospital Follow-up Call [facility] Medical Group Family Medicine [facility] [address] [facility] [address] [place] [id number] Tika Araujo NP [address] [place] [address] Social History Tobacco Use Types Packs/Day Years [...] Sex Assigned at Male 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 Sex Male 10:14 AM CDT Gender Identity Male 09/18/2024 2:31 PM CDT Sexual Orientation Straight 09/18/2024 2: 31 PM CDT documented as of this encounter Plan of Treatment Upcoming Encounters Date Type Department Care Team (Late st Contact Info) Description 12/25/2024 1:00 PM CDT Office Visit [facility] Family Medicine [address] [address] Tika Araujo NP [address] [address] 01/21/2025 1:20 PM CDT Office Visit [facility] Family Medicine [place] [id number] [address] [address] Tika Araujo NP [address] [address] 02/13/2025 7:00 AM CDT Office Visit [facility] Medical [facility] [address] [place] [address] Timmy Leblanc MD [address] [place] [address] documented as of this encounter Visit Diagnoses Not on filedocumented in this encounter Additional Health Concerns Assessment Noted Time PHQ-9 Depression Total Score: 4 09/01/19 23 10:59 AM CDT documented as of this encounter Care Teams Procurement Forester Relationship Specialty Start Date End Date Tika Araujo NP [address] [place] [address] PCP - General NURSE PRACTITIONER 03/14/24 [place] [address] [facility] [address] [place] [address] RHEUMATOLOGY 06/24/20 Lance Hernandez MD [address] [place] [address] DERMATOLOGY 06/24/20 Timmy Leblanc MD [address] [place] [address] FAMILY MEDICINE SPORTS MEDICINE 06/24/20 Ibrahima Wade MD [address] [place] [address] INTERVENTIONAL CARDIOLOGY 06/24/20 Obi Sharma, OD [address] [place] [address] Home Sales Consultant 08/18/21 Americo Mcneil MD [address] [place] [address] INFECTIOUS DISEASE 08/31/22 Suresh Verma MD [address] [place] [address] HEART & VASCULAR CARE 08/31/22 documented as of this encounter
--- OUTSIDE RECORDS SUMMARY | 2024-12-09 02:33 | XMS_ITS ---
Author Organization [facility] Virtual Care Address [facility] [place] [address] Phone Care Team Providers Care Trimming Machine Set Up Operator Name Role Phone Suresh Verma MD Unavailable [phone] Pao Allen RN Unavailable [phone] Tika Araujo MD Primary Care Provider [phone] Emmy Alicea Unavailable Unavailable Americo Mcneil MD Unavailable [phone] Korey Warren [facility] Unavailable Unavail able Active Problems [...] bid Assessment & Plan (05/27/2024 2:51 AM STAFF ANESTHETIST): -Home regimen: Entresto, coreg and imdur. -hold these iso orthostasis; re-introduce as tolerated Orthostasis 05/27/2024 Assessment & Plan (05/27/2024 5:39 AM STAFF ANESTHETIST): Presented with orthostatic symptoms while at home [...] 05/27/2024 Assessment & Plan (06/05/2024 11:44 AM STAFF ANESTHETIST): Admitted with BRBPR and near syncope, Hgb [...] sigmoidoscopy. Assessment & Plan (06/04/2024 11:42 AM STAFF ANESTHETIST): Admitted with BRBPR and near syncope, Hgb [...] sigmoidoscopy. Assessment & Plan (06/03/2024 8:04 AM STAFF ANESTHETIST): Admitted with BRBPR and near syncope, Hgb [...] sigmoidoscopy. Assessment & Plan (06/01/2024 11:39 AM STAFF ANESTHETIST): Admitted with BRBPR and near syncope, Hgb [...] sigmoidoscopy. Assessment & Plan (05/31/2024 9:25 AM STAFF ANESTHETIST): Admitted with BRBPR and near syncope, Hgb [...] CBCs Assessment & Plan (05/27/2024 12:05 PM STAFF ANESTHETIST): C/O BRBPR admitted with near syncope, admit Hgb 11.6, INR 2.4 -serial CBC -BID PPI -guaiac stools -hold ASA and warfarin pending Hgb trend -consider GI consult when INR down Assessment & Plan (05/27/2024 5:33 AM STAFF ANESTHETIST): After admission; overnight patient had episode of [...] inpatient Assessment & Plan (06/05/2024 11:44 AM STAFF ANESTHETIST): Home regimen: Lantus 30units nightly and Lispro SSI -HgbA1c 6.8 -BG currently controlled -Continue dose reduced Lantus 26 units nightly, Lispro 6 units TID with meals + SSI -Carb consistent diet -Accuchecks Assessment & Plan (06/04/2024 11:41 AM STAFF ANESTHETIST): Home regimen: Lantus 30units nightly and Lispro SSI -HgbA1c 6.8 -BG currently controlled -Continue dose reduced Lantus 26 units nightly, Lispro 6 units TID with meals + SSI -Carb consistent diet -Accuchecks Assessment & Plan (06/03/2024 8:03 AM STAFF ANESTHETIST): Home regimen: Lantus 30units nightly and Lispro SSI -HgbA1c 6.8 -BG currently controlled -Continue dose reduced Lantus 26 units nightly, Lispro 6 units TID with meals + SSI -Carb consistent diet -Accuchecks Assessment & Plan (06/01/2024 11:40 AM STAFF ANESTHETIST): Home regimen: Lantus 30units nightly and Lispro SSI -HgbA1c 6.8 -BG currently controlled -Continue dose reduced Lantus 26 units nightly, Lispro 6 units TID with meals + SSI -Carb consistent diet -Accuchecks Assessment & Plan (05/31/2024 9:30 AM STAFF ANESTHETIST): Home regimen: Lantus 30units nightly and Lispro SSI -HgbA1c 6.8 -BG currently controlled -Continue dose reduced Lantus 26 units nightly, Lispro 6 units TID with meals + SSI -Carb consistent diet -Accuchecks Assessment & Plan (05/27/2024 9:58 AM STAFF ANESTHETIST): Home regimen includes lantus 30 IU nightly and lispro SSI HgbA1c 6.8 -dose reduce lantus, add meal time lispro insulin Hypomagnesemia 05/27/2024 Assessment & Plan (06/03/2024 8:04 AM STAFF ANESTHETIST): S/p IV repletion this admission, continue to check and treat as needed Assessment & Plan (05/27/2024 12:04 PM STAFF ANESTHETIST): Mg 1.3 -replete with PO and IV -recheck tomorrow History of left ventricular assist device (LVAD) 05/26/2024 Assessment & Plan (06/05/2024 11:44 AM STAFF ANESTHETIST): ICM with HFrEF s/p CUSTOMER SUPPORT MANAGER-D 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) admitted with [...] weights Assessment & Plan (06/04/2024 11:42 AM STAFF ANESTHETIST): ICM with HFrEF s/p CUSTOMER SUPPORT MANAGER-D 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) admitted with [...] weights Assessment & Plan (06/03/2024 8:04 AM STAFF ANESTHETIST): ICM with HFrEF s/p CUSTOMER SUPPORT MANAGER-D 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) admitted with [...] weights Assessment & Plan (06/01/2024 11:30 AM STAFF ANESTHETIST): ICM with HFrEF s/p CUSTOMER SUPPORT MANAGER-D 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) admitted with [...] weights Assessment & Plan (05/31/2024 9:45 AM STAFF ANESTHETIST): ICM with HFrEF s/p CUSTOMER SUPPORT MANAGER-D 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 Assessment & Plan (04/18/2024 1:51 PM STAFF ANESTHETIST): RUQ/ Right flank pain associated with nausea [...] control. Assessment & Plan (04/18/2024 1:38 AM STAFF ANESTHETIST): RUQ/ Right flank pain associated with nausea [...] 04/17/2024 Assessment & Plan (04/19/2024 12:38 PM STAFF ANESTHETIST): - have been progressively increasing lately - [...] desensitization. Assessment & Plan (04/18/2024 1:40 PM STAFF ANESTHETIST): - have been progressively increasing lately - [...] recs. 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 Assessment & Plan (04/01/2023 12:48 [...] 08/28/2021 Assessment & Plan (05/27/2024 2:46 AM STAFF ANESTHETIST): Improving from prior admission when minocycline switched [...] CPAP Assessment & Plan (06/05/2024 11:46 AM STAFF ANESTHETIST): -Nightly CPAP with home unit Assessment & Plan (06/04/2024 11:43 AM STAFF ANESTHETIST): -Nightly CPAP with home unit Assessment & Plan (06/03/2024 8:05 AM STAFF ANESTHETIST): Nightly CPAP with home unit Assessment & Plan (06/01/2024 11:40 AM STAFF ANESTHETIST): Nightly CPAP with home unit Assessment & Plan (05/29/2024 11:33 AM STAFF ANESTHETIST): Nightly CPAP with home unit Assessment & Plan (05/27/2024 9:50 AM STAFF ANESTHETIST): Nightly CPAP with home unit Assessment & Plan (05/27/2024 1:34 AM STAFF ANESTHETIST): - continue CPAP Assessment & Plan (04/19/2024 12:49 PM STAFF ANESTHETIST): Continue with CPAP Assessment & Plan (04/18/2024 1:45 PM STAFF ANESTHETIST): Continue with CPAP Assessment & Plan (04/18/2024 2:03 AM STAFF ANESTHETIST): CW CPAP Assessment & Plan (04/02/2023 8:42 [...] 10/22/2020 Assessment & Plan (06/05/2024 11:46 AM STAFF ANESTHETIST): -BMI 34, encourage weight loss Assessment & Plan (06/03/2024 8:05 AM STAFF ANESTHETIST): BMI 34, encouraged weight loss Assessment & Plan (05/27/2024 7:50 AM STAFF ANESTHETIST): BMI 34, encouraged weight loss Assessment & [...] 06/14/2018 Assessment & Plan (06/05/2024 11:42 AM STAFF ANESTHETIST): Pt c/o chest pain x 3 days relieved with SL nitro. -hx CABG and PCI in past -slightly elevated troponin, continue to trend -EKG unremarkable -increase imdur to 60mg daily -continue coreg, hold ASA 2/2 GIB, previously discontinued statin 2/2 elevated LFT -denies CP since admit Assessment & Plan (06/04/2024 11:36 AM STAFF ANESTHETIST): Pt c/o chest pain x 3 days relieved with SL nitro. -hx CABG and PCI in past -slightly elevated troponin, continue to trend -EKG unremarkable -increase imdur to 60mg daily -continue coreg, hold ASA 2/2 GIB, previously discontinued statin 2/2 elevated LFT -denies CP since admit Assessment & Plan (06/03/2024 8:00 AM STAFF ANESTHETIST): Pt c/o chest pain x 3 days relieved with SL nitro. -hx CABG and PCI in past -slightly elevated troponin, continue to trend -EKG unremarkable -increase imdur to 60mg daily -continue coreg, hold ASA 2/2 GIB, previously discontinued statin 2/2 elevated LFT -denies CP since admit Assessment & Plan (05/27/2024 12:21 PM STAFF ANESTHETIST): Pt c/o chest pain x 3 days [...] diuretics Assessment & Plan (08/02/2019 9:43 AM STAFF ANESTHETIST): -chronic systolic end stage heart failure -exam [...] -tele Assessment & Plan (08/01/2019 12:24 PM STAFF ANESTHETIST): -chronic systolic end stage heart failure -exam appears euvolemic and LVAD appears to be functioning appropriately -suspect that presenting CP 2/2 poorly controlled BP -continue asa/losartan and coreg/nitrate doses increased -add home torsemide for improved BP control -2D echo pending -continue low sodium diet -tele Assessment & Plan (07/31/2019 4:15 PM STAFF ANESTHETIST): Appears euvolemic on exam Admitted with elevated [...] therapy on April 12, 2015 for underlying [place] [employer] class IV heart failure Assessment & Plan (08/31/2024 8:44 AM CDT): ICM with HFrEF S/P CUSTOMER SUPPORT MANAGER-D and DT-HM3 (03/2015) admitted with BRBPR. [...] -cont suppressive abx for hx driveline infection -PT/OT/cascara bark cutter -tele monitoring Assessment & Plan (08/30/2024 1:39 PM CDT): ICM with HFrEF S/P CUSTOMER SUPPORT MANAGER-D and DT-HM3 (03/2015) admitted with BRBPR. [...] -cont suppressive abx for hx driveline infection -PT/OT/cascara bark cutter -tele monitoring Assessment & Plan (08/29/2024 9:09 AM CDT): ICM with HFrEF S/P CUSTOMER SUPPORT MANAGER-D and DT-3 (03/2015) admitted with BRBPR. Hemodynamically stable, appears euvolemic and denies VAD alarms. INR 2.24 on admission. -held warfarin for GIB, INR now 1.48, restarting warfarin with heparin bridge -warfarin 5mg tonight then 4mg daily -stopped asa -cont entresto, coreg, imdur -cont suppressive abx for hx driveline infection -PT/OT/cascara bark cutter -tele monitoring Assessment & Plan (08/26/2024 12:36 PM CDT): ICM with HFrEF S/P CUSTOMER SUPPORT MANAGER-D and DT-3 (03/2015) admitted with BRBPR. Hemodynamically stable, appears euvolemic and denies VAD alarms. INR 2.24 on admission. -hold warfarin for GIB -cont entresto, coreg, imdur -cont suppressive abx for hx driveline infection -tele monitoring Assessment & Plan (08/24/2024 10:44 AM CDT): ICM with HFrEF S/P CUSTOMER SUPPORT MANAGER-D and DT-HM3 (03/2015) admitted with BRBPR. [...] 2:53 AM CDT): ICM with HFrEF S/P CUSTOMER SUPPORT MANAGER-D and DT-HM3 (03/2015) admitted with BRBPR. Hemodynamically stable, appears euvolemic and denies VAD alarms. INR 2.24 on admission. 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 -tele monitoring Assessment & Plan (04/19/2024 12:46 PM STAFF ANESTHETIST): ICM with HFrEF S/P CUSTOMER SUPPORT MANAGER-D and DT-HM3 (03/2015) Hx of recurrent [...] diet Assessment & Plan (04/18/2024 1:45 PM STAFF ANESTHETIST): ICM with HFrEF S/P CUSTOMER SUPPORT MANAGER-D and DT-HM3 (03/2015) Hx of recurrent [...] diet Assessment & Plan (04/18/2024 3:54 AM STAFF ANESTHETIST): ICM with HFrEF S/P CUSTOMER SUPPORT MANAGER-D and DT-HM3 (03/2015) Hx of recurrent [...] BP not improved with IVF will need FINANCIAL AID OFFICER -strict I/Os, daily standing weights -tele Assessment [...] Assessment & Plan (09/02/2021 12:01 PM CDT): [facility] March 2015 -LVAD functioning appropriately, no alarms -acute on chronic systolic HF with VENU and elevated LFTs -treated with IV lasix with improvement -transitioned back to home torsemide -INR 1.8, will increase warfarin to 6mg daily except Sun/Mon 5mg (home regimen) -continue home carvedilol, hydralazine, isordil, ASA, atorvastatin -I&Os, daily weights, telemetry Assessment & Plan (09/01/2021 9:21 AM CDT): [facility] March 2015 -LVAD functioning appropriately, no alarms -acute on chronic systolic HF with VENU and elevated LFTs -treated with IV lasix with improvement -transition back to home torsemide -INR down to 1.7; will give extra dose warfarin this morning -continue warfarin -continue home carvedilol, hydralazine, isordil, ASA, atorvastatin -I&Os, daily weights, telemetry Assessment & Plan (08/31/2021 3:38 PM CDT): [facility] March 2015 -LVAD functioning appropriately, no [...] Assessment & Plan (08/28/2021 1:53 PM CDT): [facility] March 2015 -LVAD functioning appropriately, no alarms -appears near euvolemic on exam -INR supratherapeutic, hold warfarin tonight -continue home carvedilol, hydralazine, isordil, ASA, atorvastatin -I&Os, daily weights, telemetry Assessment & Plan (08/27/2021 11:55 AM CDT): [facility] March 2015 LVAD functioning appropriately, no alarms -appears near euvolemic on exam -resume home torsemide 20mg daily -INR therapeutic at 2.8 (goal 2-3) -continue home warfarin regimen: 4mg SMWF, 5mg TTS -continue home carvedilol, hydralazine, isordil -continue home ASA 325mg daily, atorvastatin -I&Os, daily weights, telemetry -complication management as above Assessment & Plan (08/26/2021 11:32 AM CDT): [facility] March 2015 LVAD functioning appropriately, no alarms -appears euvolemic on exam -hold home diuretics for now (torsemide 20mg daily) -INR therapeutic at 2.5 (goal 2-3) -continue home warfarin regimen: 4mg SMWF, 5mg TTS -continue home carvedilol, hydralazine, isordil -continue home ASA 325mg daily, atorvastatin -I&Os, daily weights, telemetry -complication management as above Assessment & Plan (08/25/2021 10:29 AM CDT): [facility] March 2015 LVAD functioning appropriately, no [...] 2-3) Increase Warfarin to 7mg Monitor on roll wrapper I/Os, daily weights Assessment & Plan (10/23/2020 [...] 325 Assessment & Plan (07/31/2019 4:13 PM STAFF ANESTHETIST): Patient was implanted in March 2015 as [...] INR checks. Cardiac resynchronization th erapy defibrillator (CUSTOMER SUPPORT MANAGER-D) in place 12/30/2017 Overview (12/21/2021): Reached EoL in 2018 - elected NOT to generator change VT (ventricular tachycardia) ([facility]) 8 Overview (12/21/2021): Occurring before LVAD implantation - none since CUSTOMER SUPPORT MANAGER-D device (Metronic-- implanted prior to lvad. Pt is not PPM dependent and decision made to not proceed with generator change in December 2017) Assessment & Plan (09/11/2021 10:26 AM CDT): -NSVT on telemetry -Monitor and replete electrolytes -telemetry Assessment & Plan (09/10/2021 9:31 AM CDT): nsvt noted on roll wrapper for increase in arrythmia Keep potassium above 4 and magnesium around 2 CTM Assessment & Plan (08/02/2019 9:55 AM STAFF ANESTHETIST): -CUSTOMER SUPPORT MANAGER-D device (Metronic-- implanted prior to lvad. Pt is not PPM dependent and decision made to not proceed with generator change in December 2017) -continue tele Assessment & Plan (08/01/2019 12:21 PM STAFF ANESTHETIST): -CUSTOMER SUPPORT MANAGER-D device (Metronic-- implanted prior to lvad. Pt is not PPM dependent and decision made to not proceed with generator change in December 2017) -continue tele Assessment & Plan (07/31/2019 4:21 PM STAFF ANESTHETIST): patient had CUSTOMER SUPPORT MANAGER-D device metronic implanted prior to lvad Is not pacemaker depenent Saw Dr. 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 Assessment & Plan (06/01/2024 11:39 AM STAFF ANESTHETIST): -CT scan has increase stool burden with stool ball in sigmoid colon -S/p enema for preparation for flex sigmoidoscopy performed on 05/29 -Patient has had several BMs since but none yet today -Continue Miralax BID, senna-docusate BID and dulcolax suppository PRN -Add lactulose today Assessment & Plan (05/31/2024 9:45 AM STAFF ANESTHETIST): -CT scan has increase stool burden with stool ball in sigmoid colon -S/p enema for preparation for flex sigmoidoscopy performed on 05/29 -Patient has had several BMs including this morning -Continue Miralax, senna-docusate and dulcolax suppository PRN Assessment & Plan (05/27/2024 2:45 AM STAFF ANESTHETIST): - had large BM in ED - [...] baseline Assessment & Plan (06/05/2024 11:46 AM STAFF ANESTHETIST): -Creatinine at baseline -Avoid nephrotoxins, renally dose meds as appropriate -Avoid hypotension -BMP daily Assessment & Plan (06/04/2024 11:44 AM STAFF ANESTHETIST): -Creatinine at baseline -Avoid nephrotoxins, renally dose meds as appropriate -Avoid hypotension -BMP daily Assessment & Plan (06/03/2024 8:05 AM STAFF ANESTHETIST): Creatinine at baseline Assessment & Plan (06/01/2024 11:40 AM STAFF ANESTHETIST): Creatinine at baseline Assessment & Plan (05/29/2024 11:32 AM STAFF ANESTHETIST): Creatinine at baseline Assessment & Plan (05/27/2024 7:49 AM STAFF ANESTHETIST): Creatinine at baseline Assessment & Plan (04/19/2024 12:49 PM STAFF ANESTHETIST): Cr at baseline CTM. Assessment & Plan (04/18/2024 1:23 PM STAFF ANESTHETIST): Cr at baseline CTM. Assessment & Plan (04/18/2024 1:46 AM STAFF ANESTHETIST): Cr at baseline CTM. Assessment & Plan [...] follow Assessment & Plan (08/02/2019 9:51 AM STAFF ANESTHETIST): Stage 3 CKD -Cr remains stable and in baseline range Assessment & Plan (08/01/2019 12:25 PM STAFF ANESTHETIST): Stage 3 CKD -Cr remains stable and in baseline range Assessment & Plan (07/31/2019 4:15 PM STAFF ANESTHETIST): History ckd stage 3 . Baseline creatine [...] PPI Assessment & Plan (05/27/2024 5:42 AM STAFF ANESTHETIST): - IV ppi Assessment & Plan (04/19/2024 12:39 PM STAFF ANESTHETIST): Continue with pantoprazole. Assessment & Plan (04/18/2024 1:41 PM STAFF ANESTHETIST): Continue with pantoprazole. Assessment & Plan (04/18/2024 1:39 AM STAFF ANESTHETIST): CW pantoprazole. Assessment & Plan (03/20/2022 1:03 [...] PPI Assessment & Plan (08/02/2019 9:45 AM STAFF ANESTHETIST): -+ dyspepsia -continue PPI Assessment & Plan (08/01/2019 10:33 AM STAFF ANESTHETIST): -+ dyspepsia -continue PPI Assessment & Plan (07/31/2019 4:00 PM STAFF ANESTHETIST): Increase home dose PPI to bid to [...] 8:23 AM CDT): -H/H stable from prior [facility] reading and pt denies bleeding -Home iron supplementation held for now -continue to follow Assessment & Plan (07/31/2019 4:09 PM STAFF ANESTHETIST): History of anemia - currently blood counts on admission look good Will continue to follow . Hyperlipidemia 01/07/2014 Assessment & Plan (04/19/2024 12:39 PM STAFF ANESTHETIST): Holding statin for elevated liver enzymes. Assessment & Plan (04/18/2024 1:16 PM STAFF ANESTHETIST): Holding statin for elevated liver enzymes. Assessment & Plan (04/18/2024 1:42 AM STAFF ANESTHETIST): Holding statin for elevated liver enzymes. Assessment [...] 08/15/20 Assessment & Plan (07/31/2019 4:10 PM STAFF ANESTHETIST): hi reports being on stelera injections Peripheral vascular disease 01/07/2014 Overview (09/03/2016): PVD Hypertension 01/07/2014 Assessment & Plan (04/19/2024 12:41 PM STAFF ANESTHETIST): -Continue with Entresto, Hydralazine, coreg and imdur. -Monitor BP and adjust accordingly. -Orthostatic BP as patient mentioned having occasional lightheadedness while standing. -encourage adequate rehydration, safety precautions while changing positions, compression stockings. May consider med readjustment if symptoms persist Assessment & Plan (04/18/2024 1:42 PM STAFF ANESTHETIST): -Continue with Entresto, Hydralazine, coreg and imdur. -Monitor BP and adjust accordingly. -Orthostatic BP as patient mentioned having occasional lightheadedness while standing. Assessment & Plan (04/18/2024 3:57 AM STAFF ANESTHETIST): CW Entresto, Hydralazine, coreg and imdur. Monitor [...] needed Assessment & Plan (08/02/2019 9:41 AM STAFF ANESTHETIST): -pt presented with poorly controlled hypertension -systolic BP remains elevated despite increased nitrates and coreg doses -consider addition of low dose norvasc to regimen -continue losartan and torsemide to regimen Assessment & Plan (08/01/2019 12:23 PM STAFF ANESTHETIST): -pt presented with poorly controlled hypertension -nitrates and coreg increased--continue to follow and titrate as needed -continue losartan and add torsemide to regimen Assessment & Plan (07/31/2019 3:57 PM STAFF ANESTHETIST): Elevated blood pressures at home and recorded [...] information found. Other Current Plans [facility] IM ONLY & IV MAINTENANCE THERAPY PLAN* [...] 06/02/2024 Assessment & Plan (05/27/2024 2:07 AM STAFF ANESTHETIST): - flomax; low threshold to hold if recurrent hypotension Assessment & Plan (04/19/2024 12:39 PM STAFF ANESTHETIST): tamsulosin. Assessment & Plan (04/18/2024 1:13 PM STAFF ANESTHETIST): tamsulosin. Assessment & Plan (04/18/2024 1:39 AM STAFF ANESTHETIST): tamsulosin. Assessment & Plan (04/02/2023 8:42 AM [...] SSI Assessment & Plan (05/27/2024 2:51 AM STAFF ANESTHETIST): Home regimen includes lantus 30 IU nightly and lispro SSI - continue with basal (dose reduced to 17 units during prior admission) and SSI only (he states he takes 1-6 of lispro with meals) - add bolus TID if needed Assessment & Plan (04/19/2024 12:50 PM STAFF ANESTHETIST): Home regimen includes lantus 30 IU nightly and lispro (6-20 IU) (per patient he takes 18 international units with most of the meals) - continue with basal bolus (dose reduced to 17 units) and prandial (dose reduced to 6 units with meals) regimen in additional to SSI - Monitor blood sugar and adjust insuline as needed. Assessment & Plan (04/18/2024 1:55 PM STAFF ANESTHETIST): Home regimen includes lantus 30 IU nightly and lispro (6-20 IU) (per patient he takes 18 international units with most of the meals) - continue with basal bolus (dose reduced to 17 units) and prandial (dose reduced to 6 units with meals) regimen in additional to SSI - Monitor blood sugar and adjust insuline as needed. Assessment & Plan (04/18/2024 1:42 AM STAFF ANESTHETIST): Home regimen includes lantus 30 IU nightly [...] SSI Assessment & Plan (08/02/2019 9:45 AM STAFF ANESTHETIST): -HgA1C well controlled -continue lantus and SSI Assessment & Plan (08/01/2019 10:36 AM STAFF ANESTHETIST): -HgA1C well controlled -continue lantus and SSI Assessment & Plan (07/31/2019 3:54 PM STAFF ANESTHETIST): Recheck hemglobin a1c - last one recored in september 2016- 7.5 Patient states hemglobin a1c controlled as outpatient Continue lantus 30 units at [facility] and SSI CAD in [place] artery 01/07/2014 025 Overview (02/23/2021): Coronary artery disease with history of coronary artery bypass graft with a MARIN to the LAD and free radial graft to obtuse marginal with multiple subsequent PCI to the right coronary artery. Assessment & Plan (05/27/2024 5:29 AM STAFF ANESTHETIST): SP CABG (MARIN-LAD, free radial graft-OM ) S/p PCI to RCA - hold asa, hold coreg - statins held previously due to prior abnormal LFTs - continue trop trend to peak; currently chest pain free though he did take nitro in last 2-3 days Assessment & Plan (04/19/2024 12:39 PM STAFF ANESTHETIST): SP CABG -Asymptomatic. -Negative troponin. -continue with ASA and coreg. -holding statins d/t abnormal LFTs Assessment & Plan (04/18/2024 1:41 PM STAFF ANESTHETIST): SP CABG -Asymptomatic. -Negative troponin. -continue with ASA and coreg. Assessment & Plan (04/18/2024 1:43 AM STAFF ANESTHETIST): SP CABG Asymptomatic. Negative troponin. CW ASA, [...] carvedilol Assessment & Plan (07/31/2019 4:08 PM STAFF ANESTHETIST): Admitted with chest pain relieved in setting [...]
--- OUTSIDE RECORDS SUMMARY | 2024-12-09 02:33 | XMS_ITS | Encounter Summary ---
Author Organization [facility] Address [address] [place] [address] Phone Care Team Providers Care Homeopathic Doctor Name Role Phone Collin John MD Primary Care Provider [phone] Marietta Carroll RN Unavailable Jacque karthikble Suresh Verma MD Unavailable [phone] Pao Allen RN Unavailable [phone] Tika Araujo MD Primary Care Provider [phone] Tika Araujo MD Primary Care Provider [phone] Emmy Alicea Unavailable Unavailable Americo Mcneil MD Unavailable [phone] Korey Warren [facility] Unavailable Unavail able Encounter Details Date Type Department Care Team (Late st Contact Info) Description 08/03/2017 Orders Only [facility]INCON[facility] Provider, MD Crys [address] [place] [id number] Social History Tobacco Use Types Packs/Day Years Used Date Smoking Tobacco: Never Alcohol Use Standard Drinks/Week Comments No 0 (1 standard drink = 0.6 oz pur e alcohol) Sex and Gender Information Value Date Recorded Sex Assigned at Not on file 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 Gender Identity Not on file Sexual Orientation [...] documented as of this encounter Care Teams Homeopathic Doctor Relationship Specialty Start Date End Date Collin John MD [address] [facility] [address] [place] [address] PCP - General 07/13/16 02/24/20 Tika Araujo MD PCP - General Nurse Practitioner 03/27/20 Tika Araujo MD PCP - General 02/25/20 03/26/20 Americo Mcneil MD [address] [facility] [place] [id number] [place] [address] PCP - Home Infusion Attending Infectious Diseases 10/15/24 Marietta Carroll, RN Registered Nurse Biosecurity Officer 10/31/17 03/20/19 Suresh Verma MD Auto Repair Shop Manager Transplant 09/16/18 Pao Allen, RN VAD Coordinator Transplant 03/20/19 Emmy Alicea Primary Mathematics Lecturer Transplant 08/14/24 Korey Warren, [facility] Pharmacist Pharmacy 10/23/24 documented as of this encounter
--- OUTSIDE RECORDS SUMMARY | 2024-12-09 02:33 | XMS_ITS | Clinical Summary ---
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 Temperature - - Respiratory Rate - - Oxygen Saturation - - Inhaled Oxygen Concentration - - Weight 112 kg (246 lb) 08/15/2019 11:12 AM CDT Height 177.8 cm (5' 10) 04/11/2018 12:01 AM METAL MOCKUP MAKER Body Mass Index 35.3 04/11/2018 12:01 AM METAL 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
[2024-12-09 02:46] LABS: Hematocrit 39.5 % (42.0-52.0); Hemoglobin 13.0 g/dL (14.0-18.0); Immature Granulocyte Percent A 0.6 % (0-0.5); Lymphocytes Absolute Auto 0.95 K/mm3 (0.9-3.2); Mean Corpuscular HGB Conc 32.9 g/dl (32-36); Mean Corpuscular Hemoglobin 31.3 pg (26-34); Mean Corpuscular Volume 95.0 fl (80-100); Nucleated Red Blood Cells Absolute Auto 0.000 K/mm3 (0.0-0.012); Nucleated Red Blood Cells Perc 0.0 % (0.0-0.2); Platelet Count Result 188 k/mm3 (150-375); Red Blood Count 4.16 M/mm3 (4.6-6.20); White Blood Count 8.5 K/mm3 (4.5-10.0)
[2024-12-09 03:05] LABS: Add Urine Microscopic? YES; Appearance Urine Clear (Clear); Glucose Urine UA 1+ mg/dL (Negative); Leukocyte Esterase Ur Negative LEU/UL (Negative); Nitrate Urine Negative (Negative); Non Pathogenic Casts 0-2; Specific Grav Ur 1.016 (1.001-1.035)
[2024-12-09 03:10] LABS: INR 1.3; Prothrombin Time 15.9 Seconds (11.1-14.7)
[2024-12-09 03:11] LABS: Partial Thromboplastin Time 36.4 Seconds (22.3-36.8)
[2024-12-09 03:18] LABS: Cannabinoid Screen Urine Negative (Negative)
[2024-12-09 03:32] LABS: Acetaminophen < 10 ug/mL (10-30); Ammonia < 9 umol/L (9-30); Salicylate < 1.0 mg/dL (2-20)
[2024-12-09 03:39] LABS: Magnesium 1.3 mg/dL (1.6-2.3)
[2024-12-09 03:40] LABS: Alanine Aminotransferase 57 U/L (6-50); Albumin Level 4.1 g/dL (3.5-5.1); Alkaline Phosphatase 159 U/L (38-126); Anion Gap 11 mmol/L (4-12); Aspartate Amino Transferase 52 U/L (17-59); Bilirubin,Total 0.6 mg/dL (0.2-1.3); Blood Urea Nitrogen 22 mg/dL (9-20); Calcium 8.7 mg/dL (8.4-10.2); Carbon Dioxide 25 mmol/L (22-30); Chloride 103 mmol/L (98-107); Estimated CRCL calculation 60 ml/min; Estimated Glomerular Filt Rate > 60; Glucose 299 mg/dL (65-110); Potassium 4.3 mmol/L (3.4-5.0); Sodium 139 mmol/L (137-145); Total Protein 7.2 g/dL (6.3-8.2)
[2024-12-09 03:45] LABS: NT Pro B Type Natriuretic Pept 1680 pg/mL (19.9-100); Troponin I 0.020 ng/mL (0.000-0.034)
[2024-12-09] MEDS: MAGNESIUM SULF 2 GM/WATER 50ML 2 GM/50 ML BAG IVPB (03:53)
[2024-12-09 04:19] LABS: Thyroid Stimulating Hormone Reflex 10.100 uIU/mL (0.465-4.68)
[2024-12-09 04:24] VITALS: BP 136/89; PULSE 70; RESP 18; O2SAT 100
[2024-12-09 05:44] LABS: Free T4 Free Thyroxine Reflex 1.11 ng/dL (0.78-2.19)
[2024-12-09 05:51] VITALS: BP 153/91; PULSE 72; RESP 18; O2SAT 100
[2024-12-09 06:54] LABS: Total Triiodothyronine (T3) 1.01 NG/ML (0.82-1.58)
== END 2024-12-09 05:51 | disposition home or self-care (01) ==
PROVIDERS: Emergency Provider Emergency Medicine; PCP Nurse Practitioner
DX: R44.1 Visual hallucinations (principal); T50.905A Adverse effect of unspecified drugs, medicaments and biological substances, initial encounter; R07.89 Other chest pain; E03.9 Hypothyroidism, unspecified; E83.42 Hypomagnesemia
CPT/HCPCS: 36415; 70450; 71045; 80053; 80143; 80179; 80307; 81001; 82077; 82140; 83605; 83735; 83880; 84439; 84443; 84480; 84484; 85025; 85610; 85730; 93005; 96365; 96366; 99284; J3475

== ENCOUNTER 2025-02-19 13:50 | Outpatient (CLI) | payer MEDICARE, SELFPAY ==
--- OUTSIDE RECORDS SUMMARY | 2025-02-19 14:04 | XMS_ITS | Encounter Summary ---
Author Organization [facility] Address [address] [place] [address] Phone Care Team Providers Care Commercial Escrow Assistant Name Role Phone Suresh Verma MD Unavailable [phone] Pao Allen RN Unavailable [phone] Tika Araujo MD Primary Care Provider [phone] Emmy Alicea Unavailable Unavailable Americo Mcneil MD Unavailable [phone] Korey Warren [facility] Unavailable Unavail able Amanda Sanchez [facility] Unavailable Unavai labandria Encounter Details Date Type Department Care Team [...] on file 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 difficile suspected 02/18/2025 02/18/2025 documented as of this encounter Care Teams Commercial Escrow Assistant Relationship Specialty Start Date End Date Tika Araujo MD PCP - General Nurse Practitioner 03/27/20 Americo Mcneil MD [id number] [place] [address] PCP - Home Infusion Attending Infectious Diseases 10/15/24 Suresh Verma MD Elephant Keeper Transplant 09/16/18 Pao Allen, RN VAD Coordinator Transplant 03/20/19 Emmy Alicea Primary Heel Seat Laster Transplant 08/14/24 Korey Warren, [facility] Pharmacist Pharmacy 10/23/24 01/26/25 Amanda Sanchez, [facility] Pharmacist Pharmacy 01/26/25 documented as of this encounter
--- OUTSIDE RECORDS SUMMARY | 2025-02-19 14:04 | XMS_ITS | Encounter Summary ---
Author Organization [facility] Address [address] [place] [address] Phone Care Team Providers Care Union Representative Name Role Phone Suresh Verma MD Unavailable [phone] Pao Allen RN Unavailable [phone] Tika Araujo MD Primary Care Provider [phone] Emmy Alicea Unavailable Unavailable Americo Mcneil MD Unavailable [phone] Korey Warren [facility] Unavailable Unavail able Amanda Sanchez [facility] Unavailable Unavai labandria Encounter Details Date Type [...] on file 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 Gender Identity Not on file Sexual Orientation [...] documented as of this encounter Care Teams Union Representative Relationship Specialty Start Date End Date Tika Araujo MD PCP - General Nurse Practitioner 03/27/20 Americo Mcneil MD [id number] [place] [address] PCP - Home Infusion Attending Infectious Diseases 10/15/24 Suresh Verma MD Service Assistant Transplant 09/16/18 Pao Allen, RN VAD Coordinator Transplant 03/20/19 Emmy Alicea Primary Reservations Clerk Transplant 08/14/24 Korey Warren, [facility] Pharmacist Pharmacy 10/23/24 01/26/25 Amanda Sanchez, [facility] Pharmacist Pharmacy 01/26/25 documented as of this encounter
--- OUTSIDE RECORDS SUMMARY | 2025-02-19 14:04 | XMS_ITS | Encounter Summary ---
Author Organization [facility] Address [address] [place] [address] Phone Care Team Providers Care Brewery Pumper Name Role Phone Suresh Verma MD Unavailable [phone] Pao Allen RN Unavailable [phone] Tika Araujo MD Primary Care Provider [phone] Emmy Alicea Unavailable Unavailable Americo Mcneil MD Unavailable [phone] Korey Warren [facility] Unavailable Unavail able Amanda Sanchez [facility] Unavailable Unakirbyi labandria Encounter Details Date Type Department Care [...] on file 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 Gender Identity Not on file Sexual [...] documented as of this encounter Care Teams Brewery Pumper Relationship Specialty Start Date End Date Tika Araujo MD PCP - General Nurse Practitioner 03/27/20 Americo Mcneil MD [address] [phone] [place] [address] PCP - Home Infusion Attending Infectious Diseases 10/15/24 Suresh Verma MD Candy Butcher Transplant 09/16/18 Pao Allen, RN VAD Coordinator Transplant 03/20/19 Emmy Alicea Primary Data Security Administrator Transplant 08/14/24 Korey Warren, [facility] Pharmacist Pharmacy 10/23/24 01/26/25 Amanda Sanchez, [facility] Pharmacist Pharmacy 01/26/25 documented as of this encounter
--- OUTSIDE RECORDS SUMMARY | 2025-02-19 14:04 | XMS_ITS | Encounter Summary ---
Author Organization [facility] Address [address] [place] [address] Phone Care Team Providers Care Line Clearance Foreman Name Role Phone Suresh Verma MD Unavailable [phone] Pao Allen RN Unavailable [phone] Tika Araujo MD Primary Care Provider [phone] Emmy Alicea Unavailable Unavailable Americo Mcneil MD Unavailable [phone] Korey Warren [facility] Unavailable Unavail able Amanda Sanchez [facility] Unavailable Unavai labandria Encounter Details Date Type [...] on file 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 Gender Identity Not on file Sexual Orientation [...] documented as of this encounter Care Teams Line Clearance Foreman Relationship Specialty Start Date End Date Tika Araujo MD PCP - General Nurse Practitioner 03/27/20 Americo Mcneil MD [address] [phone] [place] [address] PCP - Home Infusion Attending Infectious Diseases 10/15/24 Suresh Verma MD Fire Prevention Chief Transplant 09/16/18 Pao Allen, RN VAD Coordinator Transplant 03/20/19 Emmy Alicea Primary Fitness Trainer Transplant 08/14/24 Korey Warren, [facility] Pharmacist Pharmacy 10/23/24 01/26/25 Amanda Sanchez, [facility] Pharmacist Pharmacy 01/26/25 documented as of this encounter
--- OUTSIDE RECORDS SUMMARY | 2025-02-19 14:04 | XMS_ITS | Encounter Summary ---
Author Organization [facility] Address [address] [place] [address] Phone Care Team Providers Care Dining Room Tables Set Up Attendant Name Role Phone Suresh Verma MD Unavailable [phone] Pao Allen RN Unavailable [phone] Tika Araujo MD Primary Care Provider [phone] Emmy Alicea Unavailable Unavailable Americo Mcneil MD Unavailable Korey Warren [facility] Unavailable Unavail able Amanda Sanchez [facility] Unavailable Unavai labandria Encounter Details Date Type [...] on file 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 Gender Identity Not on file [...] of this encounter Care Teams Dining Room Tables Set Up Attendant Relationship Specialty Start Date End Date Tika Araujo MD PCP - General Nurse Practitioner 03/27/20 Americo Mcneil MD [address] [phone] [place] [address] PCP - Home Infusion Attending Infectious Diseases 10/15/24 Suresh Verma MD Knuckle Strap Sewer Transplant 09/16/18 Pao Allen, RN VAD Coordinator Transplant 03/20/19 Emmy Alicea Primary Vocational Placement Specialist Transplant 08/14/24 Korey Warren, [facility] Pharmacist Pharmacy 10/23/24 01/26/25 Amanda Sanchez, [facility] Pharmacist Pharmacy 01/26/25 documented as of this encounter
--- OUTSIDE RECORDS SUMMARY | 2025-02-19 14:04 | XMS_ITS | Encounter Summary ---
Author Organization [facility] of [facility] Address [address] [place] [address] Phone Care Team Providers Care Environmental Sciences Professor Name Role Phone Suresh Verma MD Unavailable [phone] Pao Allen RN Unavailable [phone] Tika Araujo MD Primary Care Provider [phone] Emmy Alicea Unavailable Unavailable Americo Mcneil MD Unavailable [phone] Korey Warren [facility] Unavailable Unavail able Amanda Sanchez [facility] Unavailable Unakirbyi labandria Encounter Details Date [...] file 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 Gender Identity Not on file Sexual Orientation [...] documented as of this encounter Care Teams Environmental Sciences Professor Relationship Specialty Start Date End Date Tika Araujo MD PCP - General Nurse Practitioner 03/27/20 Americo Mcneil MD [address] [id number] [place] [address] PCP - Home Infusion Attending Infectious Diseases 10/15/24 Suresh Verma MD Morning News Anchor Transplant 09/16/18 Pao Allen, RN VAD Coordinator Transplant 03/20/19 Emmy Alicea Primary Studio Grip Transplant 08/14/24 Korey Warren, [facility] Pharmacist Pharmacy 10/23/24 01/26/25 Amanda Sanchez, [facility] Pharmacist Pharmacy 01/26/25 documented as of this encounter
--- OUTSIDE RECORDS SUMMARY | 2025-02-19 14:05 | XMS_ITS ---
Author Organization [facility] Virtual Care Address [address] [place] [address] Phone Care Team Providers Care Residential Building Inspector Name Role Phone Suresh Verma MD Unavailable [phone] Pao Allen RN Unavailable [phone] Tika Araujo MD Primary Care Provider [phone] Emmy Alicea Unavailable Unavailable Americo Mcneil MD Unavailable [phone] Amanda Sanchez [facility] Unavailable Unavai lable Catheter Maintenance - CATHFLO Status:Enrolled (Active) Start date:02/07/2025 Enrollment date:02/07/2025 Linked medications:alteplase (Active) Related program episode:Home Infusion (Active) Case Team Name Relationship Phone Amanda Sanchez [facility](Responsible Staff) Bret calderon Continued Care and Services Coordination
--- OUTSIDE RECORDS SUMMARY | 2025-02-19 14:05 | XMS_ITS | Encounter Summary ---
Author Organization [facility] Address [address] [place] [address] Phone Care Team Providers Care Senior Account Representative Name Role Phone Collin John MD Primary Care Provider [phone] Marietta Carroll RN Unavailable Jacque Suresh Miller MD Unavailable [phone] Pao Allen RN Unavailable [phone] Tika Araujo MD Primary Care Provider [phone] Tika Araujo MD Primary Care Provider [phone] Emmy Alicea Unavailable Unavailable Americo Mcneil MD Unavailable [phone] Korey Warren [facility] Unavailable Unavail able Amanda Sanchez [facility] Unavailable Unavai lable Encounter Details Date Type Department Care Team (Late st Contact Info) Description 08/03/2017 Orders Only [facility] IM CAR CLINCONV Provider, MD Crys [facility] [address] Social History Tobacco Use Types Packs/Day Years Used Date Smoking Tobacco: Never Alcohol Use Standard Drinks/Week Comments No 0 (1 standard drink = 0.6 oz pur e alcohol) Sex and Gender Information Value Date Recorded Sex Assigned at Not on file 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 Gender Identity Not on file Sexual Orientation [...] documented as of this encounter Care Teams Senior Account Representative Relationship Specialty Start Date End Date Collin John MD [address] [facility] [address] [place] [address] PCP - General 07/13/16 02/24/20 Tika Araujo MD PCP - General Nurse Practitioner 03/27/20 Tika Araujo MD PCP - General 02/25/20 03/26/20 Americo Mcneil MD [address] [facility] [id number] [place] [address] PCP - Home Infusion Attending Infectious Diseases 10/15/24 Marietta Carroll, SANKET Registered Nurse Bone Plant Supervisor 10/31/17 03/20/19 Suresh Verma MD Bisque Grader Transplant 09/16/18 Pao Allen, RN VAD Coordinator Transplant 03/20/19 Emmy Alicea Primary Seed Buyer Transplant 08/14/24 Korey Warren, [facility] Pharmacist Pharmacy 10/23/24 01/26/25 Amanda Sanchez, [facility] Pharmacist Pharmacy 01/26/25 documented as of this encounter
--- OUTSIDE RECORDS SUMMARY | 2025-02-19 14:05 | XMS_ITS | Encounter Summary ---
Author Organization [facility] School of [facility] Address [address] [place] [address] Phone Care Team Providers Care Customer Advocate Name Role Phone Collin John MD Primary Care Provider [phone] Prasanna Newton DO Primary Care Provider [phone] Marietta Carroll RN Unavailable Jacque Suresh Miller MD Unavailable Pao Allen RN Unavailable Tika Araujo MD Primary Care Provider [phone] Tika Araujo MD Primary Care Provider [phone] Emmy Alicea Unavailable Unavailable Americo Mcneil MD Unavailable [phone] Korey Warren [facility] Unavailable Unavail able Amanda Sanchez [facility] Unavailable Unasung domingo Encounter Details Date Type Department Care Team (Late st Contact Info) Description 01/15/2015 Orders Only [facility] ProviderCrys MD [address] [place] [address] Social History Tobacco Use Types Packs/Day Years Used Date Smoking Tobacco: Never Alcohol Use Standard Drinks/Week Comments No 0 (1 standard drink = 0.6 oz pur e alcohol) Sex and Gender Information Value Date Recorded Sex Assigned at Not on file 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 Historical Provider CV CARDIAC SERVICES PROCE DURES Final Result * CARDIOLOGY REPORT (01/15/2015) Anatomical Region Laterality Modality Other Narrative 01/15/2015 Ordered by an unspecified provider. Historical Provider CV CARDIAC SERVICES PROCE DURES [...] as of this encounter Care Teams Customer Advocate Relationship Specialty Start Date End Date Collin John MD [address] [facility] [address] [place] [address] PCP - General 07/13/16 02/24/20 Prasanna Newton DO [address] [facility] [address] [place] [address] PCP - General 06/07/06 07/12/16 Tika Araujo MD PCP - General Nurse Practitioner 03/27/20 Tika Araujo MD PCP - General 02/25/20 03/26/20 Americo Mcneil MD [address] [facility] [phone] [place] [address] PCP - Home Infusion Attending Infectious Diseases 10/15/24 Marietta Carroll, SANKET Registered Nurse Environmental Services Supervisor 10/31/17 03/20/19 Suresh Verma MD Supervisor Cd Area Transplant 09/16/18 Pao Allen, RN VAD Coordinator Transplant 03/20/19 Emmy Alicea Primary Coverstitch Binder Transplant 08/14/24 Korey Warren, [facility] Pharmacist Pharmacy 10/23/24 01/26/25 Amanda Sanchez [facility] Pharmacist Pharmacy 01/26/25 documented as of this encounter
--- OUTSIDE RECORDS SUMMARY | 2025-02-19 14:05 | XMS_ITS ---
Author Organization [facility] Virtual Care Address [address] [place] [address] Phone Care Team Providers Care Assistant To The Dean Name Role Phone Suresh Verma MD Unavailable [phone] Pao Allen RN Unavailable [phone] Tika Araujo MD Primary Care Provider [phone] Emmy Alicea Unavailable Unavailable Americo Mcneil MD Unavailable [phone] Amanda Sanchez [facility] Unavailable Unavai lable RxHI Anti-Infective - DALVANCE 1500 mg IV Every 14 Days Status:Enrolled (Active) Start date:2024 Enrollment date:2024 Linked medications:dalbavancin HCl (Active) Related program episode:Home Infusion (Active) Overview Pt on drug holiday Case Team Name Relationship Phone Amanda Sanchez [facility](Responsible Staff) Bret calderon Continued Care and Services Coordination This section includes services coordinated for RxHI Anti-Infective - DALVANCE 1500 mg IV Every 14 Days. Home Medical Care Name Services Phone Trinean [facility] Home Infusion a nd Injection [phone]
--- OUTSIDE RECORDS SUMMARY | 2025-02-19 14:05 | XMS_ITS | Encounter Summary ---
Author Organization [facility] Healthcare Address [address] [place] [address] Care Team Providers Care Rn Neonatal Name Role Phone Suresh Verma MD Unavailable Pao Allen RN Unavailable [phone] Tika Araujo MD Primary Care Provider [phone] Emmy Alicea Unavailable Unavailable Americo Mcneil MD Unavailable [phone] Korey Warren [facility] Unavailable Unavail able Amanda Sanchez [facility] Unavailable Unasung domingo Encounter Details Date Type Department Care Team (Late st Contact Info) Description 09/28/2024 Telephone [facility] Home Care Services [address] [facility] [address] [place] [address] Korye Warren [facility] Social History Tobacco Use Types Packs/Day Years Used Date Smoking Tobacco: Never Passive Smoke Exposure: Never Smokeless Tobacco: Never Alcohol Use Standard Drinks/Week Comments No 0 (1 standard drink = 0.6 oz pur e alcohol) [facility] Utilities Answer Date Recorded In the past 12 months has [employer] electric, gas, oil, or water company threatened to shut off services in your home? 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 Gender Identity Not on file Sexual Orientation [...] documented as of this encounter Care Teams Rn Neonatal Relationship Specialty Start Date End Date Tika Araujo MD PCP - General Nurse Practitioner 03/27/20 Americo Mcneil MD [address] [id number] [place] [address] PCP - Home Infusion Attending Infectious Diseases 10/15/24 Suresh Verma MD Inspectors And Regulatory Officers Transplant 09/16/18 Pao Allen, RN VAD Coordinator Transplant 03/20/19 Emmy Alicea Primary Ship Yard Electrical Person Transplant 08/14/24 Korey Warren, [facility] Pharmacist Pharmacy 10/23/24 01/26/25 Amanda Sanchez, [facility] Pharmacist Pharmacy 01/26/25 documented as of this encounter
--- OUTSIDE RECORDS SUMMARY | 2025-02-19 14:05 | XMS_ITS | Encounter Summary ---
Author Organization [facility] School of [facility] Address [address] [place] [address] Phone Care Team Providers Care Racing Manager Name Role Phone Suresh Verma MD Unavailable [phone] Pao Allen RN Unavailable [phone] Tika Araujo MD Primary Care Provider [phone] Emmy Alicea Unavailable Unavailable Americo Mcneil MD Unavailable [phone] Korey Warren [facility] Unavailable Unavail able Amanda Sanchez [facility] Unavailable Unavai lable Reason for Visit * Reason Onset Date Comments OPAT 05/17/2022 Encounter Details Date Type Department Care Team (Late st Contact Info) Description 05/17/2022 Telephone [facility] Medicine Infectious Diseases [address] [place] [address] Sherman Sanchez, [facility] Social History Tobacco Use Types Packs/Day [...] on file 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 Gender Identity Not on file Sexual Orientation Not on file documented as of this encounter Functional Status * AUDIT-C Score Answer Date of Assessment Author 0 [...] documented as of this encounter Care Teams Racing Manager Relationship Specialty Start Date End Date Tika Araujo MD PCP - General Nurse Practitioner 03/27/20 Americo Mcneil MD [address] [facility] [phone] [place] [address] PCP - Home Infusion Attending Infectious Diseases 10/15/24 Suresh Verma MD Ornamental Ironworking Supervisor Transplant 09/16/18 Pao Allen, RN VAD Coordinator Transplant 03/20/19 Emmy Alicea Primary Agricultural Education Teacher Transplant 08/14/24 Korey Warren, [facility] Pharmacist Pharmacy 10/23/24 01/26/25 Amanda Sanchez, [facility] Pharmacist Pharmacy 01/26/25 documented as of this encounter
--- OUTSIDE RECORDS SUMMARY | 2025-02-19 14:05 | XMS_ITS | Encounter Summary ---
Author Organization [facility] Address [address] [place] [address] Phone Care Team Providers Care Surgery Assistant Name Role Phone Suresh Verma MD Unavailable [phone] Pao Allen RN Unavailable [phone] Tika Araujo MD Primary Care Provider [phone] Emmy Alicea Unavailable Unavailable Americo Mcneil MD Unavailable [phone] Korey Warren [facility] Unavailable Unavail able Amanda Sanchez [facility] Unavailable Lawanda domingo Encounter Details Date Type Department Care Team (Late st Contact Info) Description 05/10/2024 Orders Only [facility] Scanning, Provider Social History Tobacco Use Types Packs/Day Years Used Date Smoking Tobacco: Never Passive Smoke Exposure: Never Smokeless Tobacco: Never Alcohol Use Standard Drinks/Week Comments No 0 (1 standard drink = 0.6 oz pur e alcohol) Social Connection and Isolation Panel Answer Date Recorded In a typical week, how many times do you talk on the phone with family, friends, or neighbors? Patient declined 03/23/2023 How often do you get togethe r with friends or relatives? Patient declined 03/23/2023 How often do you attend protestant or taoist serv ices? 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 Gender Identity Not on file Sexual Orientation [...] documented as of this encounter Care Teams Surgery Assistant Relationship Specialty Start Date End Date Tika Araujo MD PCP - General Nurse Practitioner 03/27/20 Americo Mcneil MD [address] [facility] [id number] [place] [address] PCP - Home Infusion Attending Infectious Diseases 10/15/24 Suresh Verma MD Aircraft Motor Mechanic Transplant 09/16/18 Pao Allen, RN VAD Coordinator Transplant 03/20/19 Emmy Alicea Primary Cloth Roll Winder Transplant 08/14/24 Korey Warren [facility] Pharmacist Pharmacy 10/23/24 01/26/25 Amanda Sanchez, [facility] Pharmacist Pharmacy 01/26/25 documented as of this encounter
--- OUTSIDE RECORDS SUMMARY | 2025-02-19 14:05 | XMS_ITS ---
Author Organization [facility] Virtual Care Address [address] [place] [address] Phone Care Team Providers Care Manager Creative Services Name Role Phone Suresh Verma MD Unavailable [phone] Pao Allen RN Unavailable [phone] Tika Araujo MD Primary Care Provider [phone] Emmy Alicea Unavailable Unavailable Americo Mcneil MD Unavailable [phone] Amanda Sanchez [facility] Unavailable Unavai lable Home Infusion Status:Enrolled (Active) Start date:2024 Enrollment date:2024 Related service episodes:RxHI Anti-Infective - DALVANCE 1500 mg IV Every 14 Days (Active), Catheter Maintenance - CATHFLO (Active) Overview Pt on drug holiday Continued Care and Services Coordination
--- OUTSIDE RECORDS SUMMARY | 2025-02-19 14:05 | XMS_ITS | Clinical Summary ---
Author Organization [facility] [employer] Address [address] [place] [address] Care Team Providers Care Warehouse Insulation Worker Name Role Phone Unavailable Primary Care Provider Unavailabl e Source Comments [facility],non-owned Affiliates and Associated Physician Practices is amultiple site organization consisting of ambulatory clinics and hospital sitesin [place], [place], [place] and [place]. This disclosure is being madepursuant to the Care Everywhere program and may not contain all information available regarding this patient. 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
--- OUTSIDE RECORDS SUMMARY | 2025-02-19 14:05 | XMS_ITS | Encounter Summary ---
Author Organization [facility] Address [address] [place] [address] Phone Care Team Providers Care Transaction Processor Name Role Phone Suresh Verma MD Unavailable [phone] Pao Allen RN Unavailable [phone] Tika Araujo MD Primary Care Provider [phone] Emmy Alicea Unavailable Unavailable Americo Mcneil MD Unavailable [phone] Amanda Sanchez [facility] Unavailable Lawanda labandria Encounter Details Date Type Department Care Team (Late st Contact Info) Description 02/18/2025 Orders Only [facility] Medicine Infectious Diseases [address] [place] [id number] Shanelle Sanches, SANKET Antibiotic-associated diarrhea (Primary Dx) Social History Tobacco Use Types Packs/Day Years Used Date Smoking Tobacco: Never Passive Smoke Exposure: Never Smokeless Tobacco: Never Alcohol Use Standard Drinks/Week Comments No 0 (1 standard drink = 0.6 oz pur e alcohol) [facility] Utilities Answer Date Recorded In the past 12 months has [employer], gas, oil, or water company threatened [...] often do you attend chur ch or latter-day services? More than 4 times per year 08/25/2024 Do you belong to any clubs o r organizations such as mormon groups, unions, fraternal or athletic groups, or [...] any time in the past 12 m [facility], were you homeless or living in a group home (including now)? No 08/25/2024 Personal Safety Answer Date Recorded Have you ever been in or are you currently in a harmful physical or emotional relationship or is someone making you feel afraid or unsafe? 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 difficile suspected 02/18/2025 02/18/2025 documented as of this encounter Care Teams Transaction Processor Relationship Specialty Start Date End Date Tika Araujo MD PCP - General Nurse Practitioner 03/27/20 Americo Mcneil MD [id number] [place] [address] PCP - Home Infusion Attending Infectious Diseases 10/15/24 Suresh Verma MD Market Researcher Transplant 09/16/18 Pao Allen, RN VAD Coordinator Transplant 03/20/19 Emmy Alicea Primary Hourly Sales Staff Transplant 08/14/24 Amanda Sanchez [facility] Pharmacist Pharmacy 01/26/25 documented as of this encounter
--- OUTSIDE RECORDS SUMMARY | 2025-02-19 14:05 | XMS_ITS | Encounter Summary ---
Author Organization [facility] Address [address] [place] [address] Phone Care Team Providers Care Vertical Lathe Operator Name Role Phone Suresh Verma MD Unavailable [phone] Pao Allen RN Unavailable [phone] Tika Araujo MD Primary Care Provider [phone] Emmy Alicea Unavailable Unavailable Americo Mcneil MD Unavailable [phone] Korey Warren [facility] Unavailable Unavail able Amanda Sanchez [facility] Unavailable Lawanda domingo Encounter Details Date Type Department Care Team (Late st Contact Info) Description 04/23/2020 Telephone [facility] Medicine Cardiology [address] 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 Gender Identity Not on file Sexual Orientation [...] documented as of this encounter Care Teams Vertical Lathe Operator Relationship Specialty Start Date End Date Tika Araujo MD PCP - General Nurse Practitioner 03/27/20 Americo Mcneil MD [id number] [place] [address] PCP - Home Infusion Attending Infectious Diseases 10/15/24 Suresh Verma MD Business Solutions Analyst Transplant 09/16/18 Pao Allen RN VAD Coordinator Transplant 03/20/19 Emmy Alicea Primary Water Treatment Plant Supervisor Transplant 08/14/24 Korey Warren, [facility] Pharmacist Pharmacy 10/23/24 01/26/25 Amanda Sanchez, [facility] Pharmacist Pharmacy 01/26/25 documented as of this encounter
--- OUTSIDE RECORDS SUMMARY | 2025-02-19 14:05 | XMS_ITS | Clinical Summary ---
Author Organization [facility] Address [address] [place] [id number] Phone Care Team Providers Care Wallpaper Consultant Name Role Phone Suresh Verma MD Unavailable [phone] Pao Allen RN Unavailable [phone] Tika Araujo MD Primary Care Provider [phone] Emmy Alicea Unavailable Unavailable Americo Mcneil MD Unavailable [phone] Amanda Sanchez [facility] Unavailable Unavai lable Allergies Active Allergy Reactions Criticality Noted Date [...] as needed (rash face) 30 g 2 025 Active ketoconazole (NIZORAL) 2 % shampoo Apply topically daily Apply to damp skin on face and scalp, lather, leave on 5 minutes, and rinse 120 mL 3 025 Active hydrocortisone 2.5 % cream Apply topically 2 (two) times a day as needed for rash (on face) 30 g 3 025 Active dalbavancin (DALVANCE) 500 mg solutionIndicat ions:Bacterial [...] WITH DEXTROSE FLUSH ONLY 225 mL 8 02/08/20 25 11:59 PM CDT 2025 Active sodium chloride 0.9% flush syringeIndicati ons:Bacterial intestinal infection,Infec tion and inflammatory reaction due to cardiac device, implant, and graft, sequela,Presenc e of heart assist device (HCC) Infuse 10 mL IV as needed for line care 37629 mL 02/05/20 25 11:59 PM CDT 2025 Active heparin 100 unit/mL syringeIndicati ons:Bacterial intestinal infection,Infec tion and inflammatory reaction due to cardiac device, implant, and graft, sequela,Presenc e of heart assist device (HCC) Infuse 5 mL (500 Units total) IV as needed (line care) 21611 mL 2025 Active dextrose 5 % in water (dextrose 5% water) 5% flushIndication s:Bacterial intestinal infection,Infec tion and inflammatory reaction due to cardiac device, implant, and graft, sequela,Presenc e of heart assist device (HCC) Infuse 10 mL IV as needed (before and after Dalbavancin infusion) NOTE: Dalbavancin is not compatible with normal saline. 20 mL 11 02/08/20 25 11:59 PM CDT 025 2025 Active dextrose 5% [...] WITHIN 4 HOURS OF MIXING 1500 mL 02/08/20 11:59 PM T 2025 Active levoFLOXacin (LEVAQUIN) 750 mg tabletIndicatio ns:Other (complete free text reason below),chronic drive line infection, on suppressive therapy Take 1 tablet (750 mg total) by mouth daily 30 tablet 2025 Active alteplase (CATHFLO ACTIVASE) 2 mg injectionIndica tions:Occlusion of peripherally inserted central catheter (PICC) line, initial encounter Administer 2 mL into catheter as needed (for catheter occlusion) 2 mg vial: add 2.2 mL sterile water for injection to achieve final concentration of 1 mg/mL. Swirl gently, do not shake. allow to dwell in catheter for 30 minutes to 2 hours 1 each 02/08/20 11:59 PM T 2025 Active sterile water for injection (PF) 1 parenteral solutionIndicat ions:Occlusion of peripherally inserted central catheter (PICC) line, initial encounter 2.2 mL by other route as needed (for alteplase reconstitution) Reconstitute each Cathflow vial with 2.2 mL 10 mL 02/08/20 11:59 PM T 2025 Active warfarin (COUMADIN) 3 mg tabletIndicatio ns:Left Ventricular Assist Device 3 mg daily, 4 mg tue Active warfarin (COUMADIN) 4 mg tabletIndicatio ns:Left Ventricular Assist Device 3 mg daily, 4 mg tue Active ustekinumab (STELARA) injection Inject 0.5 mL (45 mg total) under the skin every 3 (three) months 2021 Discontinued warfarin (COUMADIN) 3 mg tabletIndicatio ns:Left Ventricular Assist Device 4 mg daily; 5 mg /tue 025 2024 Discontinued warfarin (COUMADIN) 4 mg tabletIndicatio ns:Left Ventricular Assist Device 4 mg daily; 5 mg /tue 025 2024 Discontinued warfarin (COUMADIN) 3 mg tabletIndicatio ns:Left Ventricular Assist Device 4 mg daily; 3 mg /tue 025 2024 Discontinued warfarin (COUMADIN) 4 mg tabletIndicatio ns:Left Ventricular Assist Device 4 mg daily; 3 mg /tue 025 2024 Discontinued warfarin (COUMADIN) 3 mg tabletIndicatio ns:Left Ventricular Assist Device 3 mg daily, 4 mg sat/sun/mon 025 2024 Discontinued(A lternate therapy) warfarin (COUMADIN) 4 mg tabletIndicatio ns:Left Ventricular Assist Device 3 mg daily, 4 mg sat/sun/mon 025 2024 Discontinued(A lternate therapy) Active Problems Patient Care Coordination No te Formatting of this note migh t be different from the original. Please remember to scribe in the Absolute Eosinophils results from the CBC panels drawn at external facilities. Problem Noted Date Diagnosed Date Migraine without status migrainosus, not intract able 01/29/2025 Overview (01/29/2025): Episodic migraines in 2024 Ocular migraine 12/11/2024 Basal cell carcinoma of skin of right lower limb, including hip 09/20/2024 Disorder associated with type 2 diabetes mellitu [...] liquids 08/27, progressed to regular diet on 2 -s/p IVFs while npo -GI consulted--no plans [...] bid Assessment & Plan (05/27/2024 2:51 AM PARTS CATALOGUER): -Home regimen: Entresto, coreg and imdur. -hold these iso orthostasis; re-introduce as tolerated Orthostasis 05/27/2024 Assessment & Plan (05/27/2024 5:39 AM PARTS CATALOGUER): Presented with orthostatic symptoms while at home [...] 05/27/2024 Assessment & Plan (06/05/2024 11:44 AM PARTS CATALOGUER): Admitted with BRBPR and near syncope, Hgb [...] sigmoidoscopy. Assessment & Plan (06/04/2024 11:42 AM PARTS CATALOGUER): Admitted with BRBPR and near syncope, Hgb [...] sigmoidoscopy. Assessment & Plan (06/03/2024 8:04 AM PARTS CATALOGUER): Admitted with BRBPR and near syncope, Hgb [...] sigmoidoscopy. Assessment & Plan (06/01/2024 11:39 AM PARTS CATALOGUER): Admitted with BRBPR and near syncope, Hgb [...] sigmoidoscopy. Assessment & Plan (05/31/2024 9:25 AM PARTS CATALOGUER): Admitted with BRBPR and near syncope, Hgb [...] CBCs Assessment & Plan (05/27/2024 12:05 PM PARTS CATALOGUER): C/O BRBPR admitted with near syncope, admit Hgb 11.6, INR 2.4 -serial CBC -BID PPI -guaiac stools -hold ASA and warfarin pending Hgb trend -consider GI consult when INR down Assessment & Plan (05/27/2024 5:33 AM PARTS CATALOGUER): After admission; overnight patient had episode of [...] inpatient Assessment & Plan (06/05/2024 11:44 AM PARTS CATALOGUER): Home regimen: Lantus 30units nightly and Lispro SSI -HgbA1c 6.8 -BG currently controlled -Continue dose reduced Lantus 26 units nightly, Lispro 6 units TID with meals + SSI -Carb consistent diet -Accuchecks Assessment & Plan (06/04/2024 11:41 AM PARTS CATALOGUER): Home regimen: Lantus 30units nightly and Lispro SSI -HgbA1c 6.8 -BG currently controlled -Continue dose reduced Lantus 26 units nightly, Lispro 6 units TID with meals + SSI -Carb consistent diet -Accuchecks Assessment & Plan (06/03/2024 8:03 AM PARTS CATALOGUER): Home regimen: Lantus 30units nightly and Lispro SSI -HgbA1c 6.8 -BG currently controlled -Continue dose reduced Lantus 26 units nightly, Lispro 6 units TID with meals + SSI -Carb consistent diet -Accuchecks Assessment & Plan (06/01/2024 11:40 AM PARTS CATALOGUER): Home regimen: Lantus 30units nightly and Lispro SSI -HgbA1c 6.8 -BG currently controlled -Continue dose reduced Lantus 26 units nightly, Lispro 6 units TID with meals + SSI -Carb consistent diet -Accuchecks Assessment & Plan (05/31/2024 9:30 AM PARTS CATALOGUER): Home regimen: Lantus 30units nightly and Lispro SSI -HgbA1c 6.8 -BG currently controlled -Continue dose reduced Lantus 26 units nightly, Lispro 6 units TID with meals + SSI -Carb consistent diet -Accuchecks Assessment & Plan (05/27/2024 9:58 AM PARTS CATALOGUER): Home regimen includes lantus 30 IU nightly and lispro SSI HgbA1c 6.8 -dose reduce lantus, add meal time lispro insulin Hypomagnesemia 05/27/2024 Assessment & Plan (06/03/2024 8:04 AM PARTS CATALOGUER): S/p IV repletion this admission, continue to check and treat as needed Assessment & Plan (05/27/2024 12:04 PM PARTS CATALOGUER): Mg 1.3 -replete with PO and IV -recheck tomorrow History of left ventricular assist device (LVAD) 05/26/2024 Assessment & Plan (06/05/2024 11:44 AM PARTS CATALOGUER): ICM with HFrEF s/p FLATWORK CATCHER-D 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) admitted with near [...] weights Assessment & Plan (06/04/2024 11:42 AM PARTS CATALOGUER): ICM with HFrEF s/p FLATWORK CATCHER-D 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) admitted with near [...] weights Assessment & Plan (06/03/2024 8:04 AM PARTS CATALOGUER): ICM with HFrEF s/p FLATWORK CATCHER-D 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) admitted with near [...] weights Assessment & Plan (06/01/2024 11:30 AM PARTS CATALOGUER): ICM with HFrEF s/p FLATWORK CATCHER-D 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) admitted with near [...] weights Assessment & Plan (05/31/2024 9:45 AM PARTS CATALOGUER): ICM with HFrEF s/p FLATWORK CATCHER-D 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 Assessment & Plan (04/18/2024 1:51 PM PARTS CATALOGUER): RUQ/ Right flank pain associated with nausea [...] control. Assessment & Plan (04/18/2024 1:38 AM PARTS CATALOGUER): RUQ/ Right flank pain associated with nausea [...] 04/17/2024 Assessment & Plan (04/19/2024 12:38 PM PARTS CATALOGUER): - have been progressively increasing lately - [...] desensitization. Assessment & Plan (04/18/2024 1:40 PM PARTS CATALOGUER): - have been progressively increasing lately - [...] recs. 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 Assessment & Plan (04/01/2023 12:48 PM [...] 08/28/2021 Assessment & Plan (05/27/2024 2:46 AM PARTS CATALOGUER): Improving from prior admission when minocycline switched [...] CPAP Assessment & Plan (06/05/2024 11:46 AM PARTS CATALOGUER): -Nightly CPAP with home unit Assessment & Plan (06/04/2024 11:43 AM PARTS CATALOGUER): -Nightly CPAP with home unit Assessment & Plan (06/03/2024 8:05 AM PARTS CATALOGUER): Nightly CPAP with home unit Assessment & Plan (06/01/2024 11:40 AM PARTS CATALOGUER): Nightly CPAP with home unit Assessment & Plan (05/29/2024 11:33 AM PARTS CATALOGUER): Nightly CPAP with home unit Assessment & Plan (05/27/2024 9:50 AM PARTS CATALOGUER): Nightly CPAP with home unit Assessment & Plan (05/27/2024 1:34 AM PARTS CATALOGUER): - continue CPAP Assessment & Plan (04/19/2024 12:49 PM PARTS CATALOGUER): Continue with CPAP Assessment & Plan (04/18/2024 1:45 PM PARTS CATALOGUER): Continue with CPAP Assessment & Plan (04/18/2024 2:03 AM PARTS CATALOGUER): CW CPAP Assessment & Plan (04/02/2023 8:42 [...] 10/22/2020 Assessment & Plan (06/05/2024 11:46 AM PARTS CATALOGUER): -BMI 34, encourage weight loss Assessment & Plan (06/03/2024 8:05 AM PARTS CATALOGUER): BMI 34, encouraged weight loss Assessment & Plan (05/27/2024 7:50 AM PARTS CATALOGUER): BMI 34, encouraged weight loss Assessment & [...] 06/14/2018 Assessment & Plan (06/05/2024 11:42 AM PARTS CATALOGUER): Pt c/o chest pain x 3 days relieved with SL nitro. -hx CABG and PCI in past -slightly elevated troponin, continue to trend -EKG unremarkable -increase imdur to 60mg daily -continue coreg, hold ASA 2/2 GIB, previously discontinued statin 2/2 elevated LFT -denies CP since admit Assessment & Plan (06/04/2024 11:36 AM PARTS CATALOGUER): Pt c/o chest pain x 3 days relieved with SL nitro. -hx CABG and PCI in past -slightly elevated troponin, continue to trend -EKG unremarkable -increase imdur to 60mg daily -continue coreg, hold ASA 2/2 GIB, previously discontinued statin 2/2 elevated LFT -denies CP since admit Assessment & Plan (06/03/2024 8:00 AM PARTS CATALOGUER): Pt c/o chest pain x 3 days relieved with SL nitro. -hx CABG and PCI in past -slightly elevated troponin, continue to trend -EKG unremarkable -increase imdur to 60mg daily -continue coreg, hold ASA 2/2 GIB, previously discontinued statin 2/2 elevated LFT -denies CP since admit Assessment & Plan (05/27/2024 12:21 PM PARTS CATALOGUER): Pt c/o chest pain x 3 days [...] diuretics Assessment & Plan (08/02/2019 9:43 AM PARTS CATALOGUER): -chronic systolic end stage heart failure -exam [...] -tele Assessment & Plan (08/01/2019 12:24 PM PARTS CATALOGUER): -chronic systolic end stage heart failure -exam appears euvolemic and LVAD appears to be functioning appropriately -suspect that presenting CP 2/2 poorly controlled BP -continue asa/losartan and coreg/nitrate doses increased -add home torsemide for improved BP control -2D echo pending -continue low sodium diet -tele Assessment & Plan (07/31/2019 4:15 PM PARTS CATALOGUER): Appears euvolemic on exam Admitted with elevated [...] therapy on April 12, 2015 for underlying [place] [employer] class IV heart failure Assessment & Plan (08/31/2024 8:44 AM CDT): ICM with HFrEF S/P FLATWORK CATCHER-D and DT-HM3 (03/2015) admitted with BRBPR. 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 Hemodynamically stable, appears euvolemic and denies VAD alarms. INR 2.24 on admission. 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 Hemodynamically stable, appears euvolemic and denies VAD alarms. INR 2.24 on admission. -hold warfarin for GIB -cont entresto, coreg, imdur -cont suppressive abx for hx driveline infection -tele monitoring Assessment & Plan (08/24/2024 10:44 AM CDT): ICM with HFrEF S/P FLATWORK CATCHER-D and DT-HM3 (03/2015) admitted with BRBPR. Hemodynamically [...] 2:53 AM CDT): ICM with HFrEF S/P FLATWORK CATCHER-D and DT-HM3 (03/2015) admitted with BRBPR. Hemodynamically stable, appears euvolemic and denies VAD alarms. INR 2.24 on admission. 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 -tele monitoring Assessment & Plan (04/19/2024 12:46 PM PARTS CATALOGUER): ICM with HFrEF S/P FLATWORK CATCHER-D and DT-HM3 (03/2015) Hx of recurrent drive [...] diet Assessment & Plan (04/18/2024 1:45 PM PARTS CATALOGUER): ICM with HFrEF S/P FLATWORK CATCHER-D and DT-HM3 (03/2015) Hx of recurrent drive [...] diet Assessment & Plan (04/18/2024 3:54 AM PARTS CATALOGUER): ICM with HFrEF S/P FLATWORK CATCHER-D and DT-HM3 (03/2015) Hx of recurrent drive [...] BP not improved with IVF will need [employer]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 -strict I/Os, daily standing weights -tele Assessment [...] Assessment & Plan (09/02/2021 12:01 PM CDT): [facility] March 2015 -LVAD functioning appropriately, no alarms -acute on chronic systolic HF with VENU and elevated LFTs -treated with IV lasix with improvement -transitioned back to home torsemide -INR 1.8, will increase warfarin to 6mg daily except Sun/Mon 5mg (home regimen) -continue home carvedilol, hydralazine, isordil, ASA, atorvastatin -I&Os, daily weights, telemetry Assessment & Plan (09/01/2021 9:21 AM CDT): [facility] March 2015 -LVAD functioning appropriately, no alarms -acute on chronic systolic HF with VENU and elevated LFTs -treated with IV lasix with improvement -transition back to home torsemide -INR down to 1.7; will give extra dose warfarin this morning -continue warfarin -continue home carvedilol, hydralazine, isordil, ASA, atorvastatin -I&Os, daily weights, telemetry Assessment & Plan (08/31/2021 3:38 PM CDT): [facility] March 2015 -LVAD functioning appropriately, no alarms [...] Assessment & Plan (08/28/2021 1:53 PM CDT): [facility] March 2015 -LVAD functioning appropriately, no alarms -appears near euvolemic on exam -INR supratherapeutic, hold warfarin tonight -continue home carvedilol, hydralazine, isordil, ASA, atorvastatin -I&Os, daily weights, telemetry Assessment & Plan (08/27/2021 11:55 AM CDT): III March 2015 LVAD functioning appropriately, no alarms -appears near euvolemic on exam -resume home torsemide 20mg daily -INR therapeutic at 2.8 (goal 2-3) -continue home warfarin regimen: 4mg SMWF, 5mg TTS -continue home carvedilol, hydralazine, isordil -continue home ASA 325mg daily, atorvastatin -I&Os, daily weights, telemetry -complication management as above Assessment & Plan (08/26/2021 11:32 AM CDT): [facility] March 2015 LVAD functioning appropriately, no alarms -appears euvolemic on exam -hold home diuretics for now (torsemide 20mg daily) -INR therapeutic at 2.5 (goal 2-3) -continue home warfarin regimen: 4mg SMWF, 5mg TTS -continue home carvedilol, hydralazine, isordil -continue home ASA 325mg daily, atorvastatin -I&Os, daily weights, telemetry -complication management as above Assessment & Plan (08/25/2021 10:29 AM CDT): [facility] March 2015 LVAD functioning appropriately, no alarms -appears euvolemic on exam -hold home diuretics for now (torsemide 20mg daily) -INR therapeutic at 2.2 (goal 2-3) -continue home warfarin regimen: 4mg SMWF, 5mg TTS -continue home carvedilol, hydralazine, isordil -continue home ASA 325mg daily, atorvastatin -I&Os, daily weights, telemetry -complication management as above Assessment & Plan (08/24/2021 2:27 PM CDT): [facility] March 2015 LVAD functioning appropriately, no alarms [...] 2-3) Increase Warfarin to 7mg Monitor on county coroner I/Os, daily weights Assessment & Plan (10/23/2020 [...] 325 Assessment & Plan (07/31/2019 4:13 PM PARTS CATALOGUER): Patient was implanted in March 2015 as [...] INR checks. Cardiac resynchronization th erapy defibrillator (FLATWORK CATCHER-D) in place 12/30/2017 Overview (12/21/2021): Reached EoL in 2018 - elected NOT to generator change VT (ventricular tachycardia) ([facility]) 8 Overview (12/21/2021): Occurring before LVAD implantation - none since FLATWORK CATCHER-D device (Metronic-- implanted prior to lvad. Pt is not PPM dependent and decision made to not proceed with generator change in December 2017) Assessment & Plan (09/11/2021 10:26 AM CDT): -NSVT on telemetry -Monitor and replete electrolytes -telemetry Assessment & Plan (09/10/2021 9:31 AM CDT): nsvt noted on county coroner for increase in arrythmia Keep potassium above 4 and magnesium around 2 CTM Assessment & Plan (08/02/2019 9:55 AM PARTS CATALOGUER): -FLATWORK CATCHER-D device (Metronic-- implanted prior to lvad. Pt is not PPM dependent and decision made to not proceed with generator change in December 2017) -continue tele Assessment & Plan (08/01/2019 12:21 PM PARTS CATALOGUER): -FLATWORK CATCHER-D device (Metronic-- implanted prior to lvad. Pt is not PPM dependent and decision made to not proceed with generator change in December 2017) -continue tele Assessment & Plan (07/31/2019 4:21 PM PARTS CATALOGUER): patient had FLATWORK CATCHER-D device metronic implanted prior to lvad Is not pacemaker depenent Saw Dr. ortega from -EP clinic 12/2017 and discussion was not to proceed with generator change and patient currently has lvad And chances of arresting from life threating arrhythmia with lvad was low [facility] current use of anticoagulant therapy 0 06/04/2015 [...] miralax Assessment & Plan (06/05/2024 11:43 AM PARTS CATALOGUER): -CT scan has increase stool burden with stool ball in sigmoid colon -S/p enema for preparation for flex sigmoidoscopy performed on 05/29 -Continue aggressive bowel regimen -Continue Miralax BID, senna-docusate BID, and dulcolax suppository daily -Refuses lactulose due to cramping abd pain -KUB (1/): A short segment of colon is mildly [...] today Assessment & Plan (06/04/2024 11:40 AM PARTS CATALOGUER): -CT scan has increase stool burden with [...] today Assessment & Plan (06/03/2024 9:55 AM PARTS CATALOGUER): -CT scan has increase stool burden with [...] movements. Assessment & Plan (06/01/2024 11:39 AM PARTS CATALOGUER): -CT scan has increase stool burden with stool ball in sigmoid colon -S/p enema for preparation for flex sigmoidoscopy performed on 05/29 -Patient has had several BMs since but none yet today -Continue Miralax BID, senna-docusate BID and dulcolax suppository PRN -Add lactulose today Assessment & Plan (05/31/2024 9:45 AM PARTS CATALOGUER): -CT scan has increase stool burden with stool ball in sigmoid colon -S/p enema for preparation for flex sigmoidoscopy performed on 05/29 -Patient has had several BMs including this morning -Continue Miralax, senna-docusate and dulcolax suppository PRN Assessment & Plan (05/27/2024 2:45 AM PARTS CATALOGUER): - had large BM in ED - [...] baseline Assessment & Plan (06/05/2024 11:46 AM PARTS CATALOGUER): -Creatinine at baseline -Avoid nephrotoxins, renally dose meds as appropriate -Avoid hypotension -BMP daily Assessment & Plan (06/04/2024 11:44 AM PARTS CATALOGUER): -Creatinine at baseline -Avoid nephrotoxins, renally dose meds as appropriate -Avoid hypotension -BMP daily Assessment & Plan (06/03/2024 8:05 AM PARTS CATALOGUER): Creatinine at baseline Assessment & Plan (06/01/2024 11:40 AM PARTS CATALOGUER): Creatinine at baseline Assessment & Plan (05/29/2024 11:32 AM PARTS CATALOGUER): Creatinine at baseline Assessment & Plan (05/27/2024 7:49 AM PARTS CATALOGUER): Creatinine at baseline Assessment & Plan (04/19/2024 12:49 PM PARTS CATALOGUER): Cr at baseline CTM. Assessment & Plan (04/18/2024 1:23 PM PARTS CATALOGUER): Cr at baseline CTM. Assessment & Plan (04/18/2024 1:46 AM PARTS CATALOGUER): Cr at baseline CTM. Assessment & Plan [...] follow Assessment & Plan (08/02/2019 9:51 AM PARTS CATALOGUER): Stage 3 CKD -Cr remains stable and in baseline range Assessment & Plan (08/01/2019 12:25 PM PARTS CATALOGUER): Stage 3 CKD -Cr remains stable and in baseline range Assessment & Plan (07/31/2019 4:15 PM PARTS CATALOGUER): History ckd stage 3 . Baseline creatine [...] PPI Assessment & Plan (05/27/2024 5:42 AM PARTS CATALOGUER): - IV ppi Assessment & Plan (04/19/2024 12:39 PM PARTS CATALOGUER): Continue with pantoprazole. Assessment & Plan (04/18/2024 1:41 PM PARTS CATALOGUER): Continue with pantoprazole. Assessment & Plan (04/18/2024 1:39 AM PARTS CATALOGUER): CW pantoprazole. Assessment & Plan (03/20/2022 1:03 [...] PPI Assessment & Plan (08/02/2019 9:45 AM PARTS CATALOGUER): -+ dyspepsia -continue PPI Assessment & Plan (08/01/2019 10:33 AM PARTS CATALOGUER): -+ dyspepsia -continue PPI Assessment & Plan (07/31/2019 4:00 PM PARTS CATALOGUER): Increase home dose PPI to bid to [...] 8:23 AM CDT): -H/H stable from prior [facility] reading and pt denies bleeding -Home iron supplementation held for now -continue to follow Assessment & Plan (07/31/2019 4:09 PM PARTS CATALOGUER): History of anemia - currently blood counts on admission look good Will continue to follow . Hyperlipidemia 01/07/2014 Assessment & Plan (04/19/2024 12:39 PM PARTS CATALOGUER): Holding statin for elevated liver enzymes. Assessment & Plan (04/18/2024 1:16 PM PARTS CATALOGUER): Holding statin for elevated liver enzymes. Assessment & Plan (04/18/2024 1:42 AM PARTS CATALOGUER): Holding statin for elevated liver enzymes. Assessment [...] 08/15/20 Assessment & Plan (07/31/2019 4:10 PM PARTS CATALOGUER): hi reports being on stelera injections Peripheral vascular disease 01/07/2014 Overview (09/03/2016): PVD Hypertension 01/07/2014 Assessment & Plan (04/19/2024 12:41 PM PARTS CATALOGUER): -Continue with Entresto, Hydralazine, coreg and imdur. -Monitor BP and adjust accordingly. -Orthostatic BP as patient mentioned having occasional lightheadedness while standing. -encourage adequate rehydration, safety precautions while changing positions, compression stockings. May consider med readjustment if symptoms persist Assessment & Plan (04/18/2024 1:42 PM PARTS CATALOGUER): -Continue with Entresto, Hydralazine, coreg and imdur. -Monitor BP and adjust accordingly. -Orthostatic BP as patient mentioned having occasional lightheadedness while standing. Assessment & Plan (04/18/2024 3:57 AM PARTS CATALOGUER): CW Entresto, Hydralazine, coreg and imdur. Monitor [...] needed Assessment & Plan (08/02/2019 9:41 AM PARTS CATALOGUER): -pt presented with poorly controlled hypertension -systolic BP remains elevated despite increased nitrates and coreg doses -consider addition of low dose norvasc to regimen -continue losartan and torsemide to regimen Assessment & Plan (08/01/2019 12:23 PM PARTS CATALOGUER): -pt presented with poorly controlled hypertension -nitrates and coreg increased--continue to follow and titrate as needed -continue losartan and add torsemide to regimen Assessment & Plan (07/31/2019 3:57 PM PARTS CATALOGUER): Elevated blood pressures at home and recorded [...] Problem Noted Date Diagnosed Date Resolved Date Chronic left-sided congestive heart failure 09/20/2024 01/29/2025 Ileus 03/24/2023 05/01/2024 Assessment & Plan (04/02/2023 [...] 06/02/2024 Assessment & Plan (05/27/2024 2:07 AM PARTS CATALOGUER): - flomax; low threshold to hold if recurrent hypotension Assessment & Plan (04/19/2024 12:39 PM PARTS CATALOGUER): CW tamsulosin. Assessment & Plan (04/18/2024 1:13 PM PARTS CATALOGUER): CW tamsulosin. Assessment & Plan (04/18/2024 1:39 AM PARTS CATALOGUER): CW tamsulosin. Assessment & Plan (04/02/2023 8:42 [...] change tomorrow History of COVID-19 09/09/2021 06/22/19 23 Assessment & Plan (09/11/2021 9:29 AM CDT): [...] SSI Assessment & Plan (05/27/2024 2:51 AM PARTS CATALOGUER): Home regimen includes lantus 30 IU nightly and lispro SSI - continue with basal (dose reduced to 17 units during prior admission) and SSI only (he states he takes 1-6 of lispro with meals) - add bolus TID if needed Assessment & Plan (04/19/2024 12:50 PM PARTS CATALOGUER): Home regimen includes lantus 30 IU nightly and lispro (6-20 IU) (per patient he takes 18 international units with most of the meals) - continue with basal bolus (dose reduced to 17 units) and prandial (dose reduced to 6 units with meals) regimen in additional to SSI - Monitor blood sugar and adjust insuline as needed. Assessment & Plan (04/18/2024 1:55 PM PARTS CATALOGUER): Home regimen includes lantus 30 IU nightly and lispro (6-20 IU) (per patient he takes 18 international units with most of the meals) - continue with basal bolus (dose reduced to 17 units) and prandial (dose reduced to 6 units with meals) regimen in additional to SSI - Monitor blood sugar and adjust insuline as needed. Assessment & Plan (04/18/2024 1:42 AM PARTS CATALOGUER): Home regimen includes lantus 30 IU nightly [...] SSI Assessment & Plan (08/02/2019 9:45 AM PARTS CATALOGUER): -HgA1C well controlled -continue lantus and SSI Assessment & Plan (08/01/2019 10:36 AM PARTS CATALOGUER): -HgA1C well controlled -continue lantus and SSI Assessment & Plan (07/31/2019 3:54 PM PARTS CATALOGUER): Recheck hemglobin a1c - last one recored in september 2016- 7.5 Patient states hemglobin a1c controlled as outpatient Continue lantus 30 units at [facility] and SSI CAD in [place] artery 01/07/2014 025 Overview (02/23/2021): Coronary artery disease with history of coronary artery bypass graft with a MARIN to the LAD and free radial graft to obtuse marginal with multiple subsequent PCI to the right coronary artery. Assessment & Plan (05/27/2024 5:29 AM PARTS CATALOGUER): SP CABG (MARIN-LAD, free radial graft-OM ) S/p PCI to RCA - hold asa, hold coreg - statins held previously due to prior abnormal LFTs - continue trop trend to peak; currently chest pain free though he did take nitro in last 2-3 days Assessment & Plan (04/19/2024 12:39 PM PARTS CATALOGUER): SP CABG -Asymptomatic. -Negative troponin. -continue with ASA and coreg. -holding statins d/t abnormal LFTs Assessment & Plan (04/18/2024 1:41 PM PARTS CATALOGUER): SP CABG -Asymptomatic. -Negative troponin. -continue with ASA and coreg. Assessment & Plan (04/18/2024 1:43 AM PARTS CATALOGUER): SP CABG Asymptomatic. Negative troponin. CW ASA, [...] carvedilol Assessment & Plan (07/31/2019 4:08 PM PARTS CATALOGUER): Admitted with chest pain relieved in setting [...] Encounters Date Type Department Care Team Description 02/19/[address] [facility] Medicine Infectious Diseases [address] [place] [phone] Shanelle Sanches RN 02/19/2025 Anticoagulation Telephone Call [facility] Transplant Heart [address] [facility] 3401 Mailstop [phone] [place] [address] Alexandrea Rueda RN 02/18/[address] [facility] Medicine Infectious Diseases [address] [place] [phone] Shanelle Sanches, SANKET Antibiotic-associated diarrhea (Primary Dx) 02/18/[address] [facility] Medicine Infectious Diseases [address] [place] [phone] Alia Espinoza 02/15/[address] 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 Medicine Infectious Diseases [address] [phone] Shanelle Sanches, SANKET 02/08/[address] [facility] Medicine Infectious Diseases [address] [phone] Alia Espinoza 02/07/2025 Plan of Care Documentation [facility] [address] [place] [address] 02/07/2025 Home Infusion [facility] [address] [place] [address] Amanda Sanchez, [facility] Occlusion of peripherally inserted central catheter (PICC) line, initial encounter (Primary Dx) 02/07/2025 Documentation [facility] Medicine Infectious Diseases [address] [phone] Shanelle Sanches, SANKET 02/07/[address] [facility] Medicine Infectious Diseases [address] [phone] Shanelle Sanches, SANKET 02/05/2025 Anticoagulation Telephone Call [facility] Transplant Heart [address] [place] [address] [address] Mailop -[address] [place] [address] Pao Allen RN 02/04/2025 Home Infusion [facility] [address] [place] [address] Tammy Morales 01/31/2025 Telephone [facility] Transplant Heart [address] [place] [address] [address] [place] [phone] [place] [address] Pao Allen RN 01/31/[address] [facility] Medicine Infectious Diseases [address] [place] [phone] Olinda Kendrick, SANKET Opat Progress/Monitoring 01/31/2025 Anticoagulation Telephone Call [facility] Transplant Heart [address] [place] [address] [place] [phone] [place] [address] Pao Allen, SANKET 01/29/2025 10:45 AM CDT Office Visit [facility] [address] [place] [address] [address] [place] [address] Suresh Verma MD Ischemic cardiomyopathy (Primary Dx); Chronic systolic heart failure (HCC); LVAD (left ventricular assist device) present ICM, end-stage systolic CHF s/p HM3 (2014); Other migraine without status migrainosus, not intractable 01/25/[address] [facility] Medicine Infectious Diseases [address] [place] [phone] Olinda Kendrick, RN Opat Progress/Monitoring 01/25/2025 Telephone [facility] [address] [place] [address] Amanda Sanchez [facility] 01/24/2025 Anticoagulation Telephone Call [facility] Transplant Heart [address] [facility] 3401 Mailstop [phone] [place] [address] Pao Allen, RN 01/21/2025 Telephone [facility] [address] [facility] [address] [place] [phone] Indiana Guerrero CMA 01/18/2025 Telephone [facility] Medicine Infectious Diseases [address] [facility] [address] [place] [phone] Americo Mcneil MD 01/17/2025 Telephone [facility] Infect[facility] Diseases [address] [phone] Alia Espinoza 01/16/2025 Documentation [facility] Infect[facility] Diseases [address] [phone] Olinda Kendrick, SANKET Opat Progress/Monitoring 01/15/2025 Anticoagulation Telephone Call [facility] Transplant Heart [address] [facility] 3401 Mailstop [phone] [place] [address] Pao Allen, RN 01/14/2025 Home Infusion [facility] [address] [place] [address] James Espinoza, [facility] 01/11/2025 Documentation [facility] [address] [phone] Shanelle Sanches, SANKET 01/09/2025 Anticoagulation Telephone Call [facility] Transplant Heart [address] [facility] 3401 Mailstop [phone] [place] [address] Pao Allen, RN 01/09/2025 Home Infusion [facility] [address] [place] [address] Amanda Sanchez, [facility] 01/09/2025 Plan of Care Documentation [facility] [address] [place] [address] 01/08/2025 Telephone [facility] Transplant Heart [address] [place] [address] [address] [facility] [phone] [place] [address] Faby Macdonald 01/02/[address] [facility] Medicine Infectious Diseases 620 [facility] [address] [place] [phone] Shanelle Sanches RN 01/02/2025 Anticoagulation Telephone Call [facility] Transplant Heart [address] [place] [address] 3401 [facility] -[phone] [place] [address] Alexandrea Rueda RN 12/31/2024 9:30 AM CDT Procedure visit [facility] Medicine Dermatology [address] [place] [address] [address] [place] [phone] Kevin Dodd MD Squamous cell carcinoma of skin of left lower limb, including hip (Primary Dx); Inflamed seborrheic keratosis 12/31/2024 Telephone [facility] Transplant Heart [address] [place] [address] -39-127 [place] [address] Isaiah Miranda 12/26/2024 Telephone [facility] [address] [place] [address] [address] [place] [phone] Kevin Dodd MD 12/26/2024 Home Infusion [facility] [address] [place] [address] Amanda Sanchez, [facility] 12/25/[address] [facility] Medicine Infectious Diseases 620 [facility] [address] [place] [phone] Olinda Kendrick, SANKET Opat Progress/Monitoring 12/25/2024 Anticoagulation Telephone Call [facility] Transplant Heart [address] [place] [address] [place] [address] [phone] [place] [address] Pao Allen RN 12/20/2024 Telephone [facility] [address] [place] [address] [address] [place] [phone] Kevin Dodd MD 12/19/2024 Telephone [facility] [address] [facility] [address] [place] [phone] Kevin Dodd MD 12/18/[address] [facility] Medicine Infectious Diseases 620 [facility] [address] [place] [phone] Olinda Kendrick, RN Opat Progress/Monitoring 12/18/2024 Orders Only [facility] [address] [facility] 8th [place] [address] [place] [phone] Chloe Keys NP Elevated LFTs (Primary Dx) 12/18/2024 Anticoagulation Telephone Call [facility] Transplant Heart [address] [place] [address] 3401 Mailstop [phone] [place] [address] Pao Allen RN 12/13/2024 11:00 AM CDT Procedure visit [facility] [address] [facility] [address] [place] [phone] Kevin Dodd MD Neoplasm of uncertain behavior of skin (Primary Dx); Encounter for post surgical wound check 12/13/2024 Orders Only [facility] [address] [place] [address] Kevin Dodd MD Neoplasm of uncertain behavior of skin 12/13/2024 Telephone [facility] 620 [facility] [address] [place] [phone] Alia Espinoza 12/13/[address] [facility] Medicine Infectious Diseases 620 [facility] [address] [place] [phone] Olinda Kendrick, SANKET Opat Progress/Monitoring 12/12/2024 Anticoagulation Telephone Call [facility] Transplant Heart [address] [facility] 3401 Mailstop [phone] [place] [address] Pao Allen RN 12/12/2024 Telephone [facility] Transplant Heart [address] [facility] 3401 Mailstop -[phone] [place] [address] Faby Macdonald 12/11/2024 Telephone [facility] Transplant Heart [address] [facility] [address] Mailstop [phone] [place] [address] Steffany Reyes 12/10/2024 1:59 PM CDT - 12/10/2024 8:13 PM CDT Emergency [facility] Emergency Department 1 [place] [phone] Abel Mak MD Baumgartner, Kevin Timothy, MD Ocular migraine (Primary Dx); LVAD (left ventricular assist device) present (HCC) Discharge Disposition: Discharge to home or self care 12/10/2024 Ophth Exam Ophthalmology Chico Hsu MD 12/10/2024 Home Infusion [facility] [address] [place] [address] Amanda Sanchez [facility] 12/10/[address] [facility] Medicine Infectious Diseases 620 [facility] [address] [place] [phone] Destinee Peraza RMA 12/08/2024 Telephone [facility] Transplant Heart [address] [facility] [address] Mailstop [phone] [place] [address] Courtney Bonilla RN 12/06/2024 10:45 AM CDT Lab [facility] [address] [place] [address] LVAD (left ventricular assist device) present (HCC) 12/06/2024 10:30 AM CDT Lab [facility] [address] [place] [address] Screen for sexually transmitted diseases; Eosinophilia, unspecified type; 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 Medicine Infectious Diseases 620 [facility] [address] [place] [phone] Shanelle Sanches RN 12/06/[address] 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 Medicine Dermatology [facility] [address] [place] [phone] Kevin Dodd MD Squamous cell carcinoma of forehead (Primary Dx); AK (actinic keratosis) 12/04/[address] [facility] Medicine Infectious Diseases [address] [facility] [address] [place] [address] Americo Mcneil MD 12/04/[address] [facility] Medicine Infectious Diseases [address] [facility] [address] [place] [address] Alia Espinoza 12/03/2024 Telephone [facility] [address] [place] [address] Katrin Veloz RN 12/03/[address] [facility] Medicine Infectious Diseases [address] [facility] [address] [place] [address] Shanelle Sanches RN 12/03/[address] 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) 11/27/2024 Anticoagulation Telephone Call [facility] Transplant Heart [address] [facility] [address] Mailstop -[phone] [place] [address] Pao Allen RN 11/26/2024 Telephone [facility] Medicine Infectious Diseases [address] [place] [phone] Alia Espinoza 11/23/2024 Home Infusion [facility] [address] [place] [address] James Espinoza, [facility] 11/22/2024 Telephone [facility] [address] [place] [address] [facility] 8th [place] [address] [place] [address] Suresh Verma MD 11/21/2024 Telephone [facility] Medicine Infectious Diseases [address] [place] [phone] Americo Mcneil MD 11/21/2024 Anticoagulation Telephone Call [facility] Transplant Heart [address] [facility] [address] Mailop -[phone] [place] [address] Courtney Bonilla RN 11/20/2024 Telephone [facility] [address] [place] [address] [facility] 8th [place] [address] [place] [address] Suresh Wyman MD PhD 11/20/2024 Telephone [facility] Transplant Heart [address] [facility] [address] Mailstop -[phone] [place] [address] Isaiah Miranda 11/20/2024 Home Infusion [facility] [address] [place] [address] Lorraine Bloom 11/19/2024 Telephone [facility] Medicine Infectious Diseases [address] [place] [phone] Alia Espinoza 11/19/2024 Telephone [facility] Medicine Infectious Diseases [address] [place] [address] [place] [address] Alia Espinoza 11/19/2024 Results Follow-Up 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 Pt [...] Assessment & Plan: -+ dyspepsia -continue PPI LVAD (left ventricular isacc t device) present ([facility]) Family History Medical History Relation Name Comments [...] = 0.6 oz pur e alcohol) [facility] Utilities Answer Date Recorded In the past 12 months has [employer], gas, oil, or water [employer] threatened to shut off services in your [...] week 08/25/2024 How often do you attend [facility] or quaker services? More than 4 times per year 08/25/2024 Do you belong to any clubs o r organizations such as anabaptism groups, unions, fraternal or athletic groups, or [...] money to buy more. Never true 08/26/19 Within the past 12 months, t he [...] any time in the past 12 m [facility], were you homeless or living in a penitentiary (including now)? No 08/25/2024 Personal Safety Answer Date Recorded Have you ever been in or are you currently in a harmful physical or emotional relationship or is someone making you feel afraid or unsafe? Denies 12/10/2024 Sex and Gender Information Value Date Recorded Sex Assigned at Not on file Legal Sex Male 12:11 AM PARTS CATALOGUER Gender Identity Not on file Sexual Orientation Not on file Obstetrics History Last Filed Vital Signs Vital Sign Reading Time Taken Comments Blood Pressure 115/65 02/12/2025 12:47 PM CDT Pulse 68 02/12/2025 12:47 PM CDT Temperature 36.9 C (98.4 F) 02/12/2025 12:47 PM CDT Respiratory Rate 18 02/12/2025 12:47 PM CDT Oxygen Saturation 100% 01/29/2025 10:56 AM CDT Inhaled Oxygen Concentration - - Weight 100.2 kg (221 lb) 02/12/2025 12:47 PM CDT Height 177.8 cm (5' 10) 01/29/2025 10:56 AM CDT Body Mass Index 31.71 01/29/2025 10:56 AM CDT Plan of Treatment Health Maintenance Due Date Last Done Comments Albumin Creatinine Ratio, Urine 1950 Foot Exam 1950 Well Visit 65+ 2013 Covid-19 Vaccine (2024-06 6 season) 2025 05/04/2021, 08/15/2020, 07/18/2020 Influenza Vaccine (#1) 2025 , 03/18/2023, 03/08/2022, Additional history exists Hemoglobin A1C 02/23/2025 08/23/2024, 12/2 01/2024, 03/14/2023, Additional history exists Depression Screening 05/26/2025 05/26/2024 Lipid Panel 05/26/2025 05/26/2024, 02/27, 12/22/2022, Additional history exists Dilated Eye Exam 12/10/2025 12/10/2024 Fall Risk Assessment 02/12/2026 02/12/2025 eGFR 02/18/2026 02/18/2025, 01/28, 02/04/2025, Additional history exists DTaP/Tdap/Td Vaccine (3 - Td or Tdap) 11/22/2033 11/23/2023, 06/26/2020 Colon Cancer Screening-Colonoscopy Discontinued 10/16/2013 Pneumococcal vaccine 65+ Completed 021, 03/06/2014, 03/16/2007 Zoster Vaccine Completed 11/23/2023, 04/30, 08/25/2018, Additional history exists Hepatitis B Screening Completed 04/16/2024 Hepatitis C Screening Completed 04/17/2024 , 04/16/2024, 04/03/2015, Additional history exists Colon Cancer Screening-CT Colonography Discontinued 05/29/2024, 10/16/2013 Colon Cancer Screening-DNA Stool Discontinued 05/29/20, 10/16/2013 Colon Cancer Screening-FIT Discontinued 05/29/2024, Colon Cancer Screening-FOBT Discontinued 05/29/2024, 0 10/16/2013 Colon Cancer Screening-Sigmoidoscopy Discontinued 05/29/2024, 10/16/2013 Colorectal Cancer Screening Discontinued Medical Devices Implanted Type Area Contract Administrator Device Identifier Shelf Expiration Date Model / Serial / Lot Icd ICD Left: Chest Wall Medtronic Lvad LVAD Left: Abdomen [employer]/C R Bard Ventralight St Sepra 8x6in Uncoated Monofilament Lightweight [id number] - [id number] Implanted:Qty: 1 on 03/22/2023 by Tony Blood MD at [facility] Mesh N/A: Abdomen [employer] Bard [id number] 09/24/2024 [id number] / / [id number] Procedures Procedure Name Priority Date/Time Associated Diagnosis Comments CBC WITH AUTO DIFFERENTIAL Routine 02/18/2025 10:46 AM CDT COMPREHENSIVE METABOLIC PANEL Routine 02/18/2025 10:46 AM CDT PROTIME-INR Routine 02/18/2025 10:46 AM CDT PROTIME-INR Routine 02/18/2025 PROTIME-INR Routine 02/15/2025 CBC WITH AUTO DIFFERENTIAL Routine 02/13/2025 12:53 PM CDT COMPREHENSIVE METABOLIC PANEL Routine 02/13/2025 12:53 PM CDT PROTIME-INR Routine 02/13/2025 12:53 PM CDT EXCHANGE CENTRAL LINE Schedule Routine, Read Routine (OP Routine) 02/12/2025 1:59 PM CDT 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 PROTIME-INR Routine 02/05/2025 CBC WITH AUTO DIFFERENTIAL Routine 02/04/2025 12:59 PM CDT COMPREHENSIVE METABOLIC PANEL Routine 02/04/2025 12:59 PM CDT PROTIME-INR Routine 02/04/2025 12:59 PM CDT PROTIME-INR Routine 01/31/2025 COMPREHENSIVE METABOLIC PANEL Routine 01/30/2025 11:49 AM CDT CBC WITH AUTO DIFFERENTIAL Routine 01/30/2025 11:49 AM CDT PROTIME-INR Routine 01/30/2025 11:49 AM CDT PROTIME-INR Routine 01/24/2025 CBC WITH AUTO DIFFERENTIAL Routine 01/23/2025 2:35 PM CDT COMPREHENSIVE METABOLIC PANEL Routine 01/23/2025 2:35 PM CDT PROTIME-INR Routine 01/23/2025 PROTIME-INR Routine 01/15/2025 COMPREHENSIVE METABOLIC PANEL Routine 01/14/2025 PROTIME-INR Routine 01/14/2025 CBC WITH AUTO DIFFERENTIAL Routine 01/14/2025 PROTIME-INR Routine 01/09/2025 COMPREHENSIVE METABOLIC PANEL Routine 01/08/2025 CBC WITH AUTO DIFFERENTIAL Routine 01/08/2025 PROTIME-INR Routine 01/08/2025 CBC WITH AUTO DIFFERENTIAL Routine 01/01/2025 2:50 PM CDT PROTIME-INR Routine 01/01/2025 2:50 PM CDT COMPREHENSIVE METABOLIC PANEL Routine 01/01/2025 2:50 PM CDT PROTIME-INR Routine 01/01/2025 PROTIME-INR Routine 12/25/2024 COMPREHENSIVE METABOLIC PANEL Routine 12/24/2024 2:15 PM CDT PROTIME-INR Routine 12/24/2024 2:15 PM CDT CBC WITH AUTO DIFFERENTIAL Routine 12/24/2024 2:15 PM CDT PROTIME-INR Routine 12/18/2024 COMPREHENSIVE METABOLIC PANEL Routine 12/17/2024 PROTIME-INR Routine 12/17/2024 CBC WITH AUTO DIFFERENTIAL Routine 12/17/2024 SURGICAL PATHOLOGY Routine 12/13/2024 8: 48 PM CDT Neoplasm of uncertain behavior of skin POCT GLUCOSE DEVICE Routine 12/10/2024 5 :32 PM CDT EGFR STAT 12/10/2024 3:04 PM CDT DIFFERENTIAL AUTO STAT 12/10/2024 3:0 4 PM CDT PROTIME-INR STAT 12/10/2024 3:04 PM CDT BASIC METABOLIC PANEL STAT 12/10/2024 3:04 PM CDT CBC WITH AUTO DIFFERENTIAL STAT 12/10/2024 3:04 PM CDT EGFR Routine 12/06/2024 10:49 AM CDT LVAD (left ventricular assist device) present (HCC) EGFR Routine 12/06/2024 10:49 AM CDT 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 DIFFERENTIAL AUTO Routine 12/06/2024 10: 49 AM CDT LVAD (left ventricular assist device) present (HCC) BLOOD MISC TO [place] Routine 12/06/2024 10 :49 AM CDT CBC [...] SCAN - LABS 11/20/2024 12:00 AM CDT HEMOGLOBIN A1C STAT 08/23/2024 4:33 PM CDT FLEXIBLE SIGMOIDOSCOPY 05/29/2024 9:01 AM PARTS CATALOGUER LIPID PANEL STAT 05/26/2024 5:30 PM PARTS CATALOGUER HEPATITIS C RNA, QUANTITATIVE, PCR STAT 04/17/2024 6:26 PM PARTS CATALOGUER COLONOSCOPY REPORT 10/16/2013 from Last 3 Months or Most Recently Relevant to Health Maintenance Results * (ABNORMAL) CBC with auto differential (02/18/2025 10:46 AM CDT) SCRIBED WBC 6.4 3.8 - 10.8 K/cumm [facility] SCRIBED Hemoglobin 11.0(A) 13.2 - 17.1 g/dL [facility] SCRIBED Hematocrit 34.3(A) 38.5 - 50.0 % [facility] SCRIBED Platelets 128(A) 140 - 400 K/cumm [facility] SCRIBED RBC 3.54(A) 4.20 - 5.80 M/cumm [facility] SCRIBED Eosinophils Abs 461 15 - 500 K/cumm [facility] Blood 02/18/2025 10:4 6 AM CDT us Suresh Verma MD LAB BLOOD ORDERABLES Fin al Result Performing Organization Address [facility] de Phone Number [facility] * (ABNORMAL) Protime-INR (02/18/2025 10:46 AM CDT) SCRIBED PT 22.4(A) 9.0 - 11.5 sec [facility] SCRIBED INR 2.2 2.0 - 3.0 sec [facility] Blood 02/18/2025 10:4 6 AM CDT us Suresh Verma MD LAB BLOOD ORDERABLES Fin al Result Performing Organization Address [facility]/ZIP Co de Phone Number [facility] * (ABNORMAL) Comprehensive metabolic panel (02/18/2025 10:46 AM CDT) SCRIBED Sodium 140 135 - 146 mmol/L [facility] SCRIBED Potassium 3.4(A) 3.5 - 5.3 mmol/L [facility] SCRIBED Chloride 105 98 - 110 mmol/L [facility] SCRIBED Carbon Dioxide 26 20 - 32 mmol/L [facility] SCRIBED Anion Gap [facility] Comment:N/A SCRIBED Urea Nitrogen (BUN) 27(A) 7 - 25 mg/dL [facility] SCRIBED Creatinine 1.48(A) 0.70 - 1.28 mg/dL [facility] SCRIBED Glucose 163(A) 65 - 99 mg/dL [facility] SCRIBED Calcium 7.8(A) 8.6 - 10.3 mg/dL [facility] SCRIBED Bilirubin 0.6 0.2 - 12 mg/dL [facility] SCRIBED Plasma Protein 5.2(A) 6.1 - 8.1 g/dL [facility] SCRIBED Albumin 3.2(A) 3.6 - 5.1 g/dL [facility] SCRIBED Alkaline Phosphatase 89 65 - 144 Units/L [facility] SCRIBED Alanine Transaminase (ALT) 29 9 - 46 Units/L [facility] SCRIBED Aspartate Transaminase (AST) 41(A) 10 - 35 Units/L [facility] SCRIBED eGFR 49 >60 mL/min/1.7 3 m2 [facility] Blood 02/18/2025 10:4 6 AM CDT Result [facility] Suresh Verma MD LAB BLOOD ORDERABLES Fin al Result [facility] * (ABNORMAL) Protime-INR (02/18/2025) [facility] INR 2.20(A) 0.90 - 1.10 Blood Result [facility] Historical Provider LAB BLOOD ORDERABLES Maia l Result * (ABNORMAL) Protime-INR (02/15/2025) [facility] INR 2.80(A) 0.90 - 1.10 Blood Result [facility] Historical Provider LAB BLOOD ORDERABLES Maia l Result * (ABNORMAL) CBC with auto differential (02/13/2025 12:53 PM CDT) [facility] SCRIBED WBC 7.3 3.8 - 10.8 K/cumm [facility] SCRIBED Hemoglobin 11.7(A) 13.2 - 17.1 g/dL [facility] SCRIBED Hematocrit 37.6(A) 38.5 - 50.0 % [facility] SCRIBED Platelets 131(A) 140 - 400 K/cumm [facility] SCRIBED RBC 3.79(A) 4.20 - 5.80 M/cumm [facility] SCRIBED Eosinophils Abs 431 15 - 500 K/cumm [facility] Blood 02/13/2025 12:5 3 PM CDT us Suresh Verma MD LAB BLOOD ORDERABLES Fin al Result Performing Organization Address [facility] de Phone Number [facility] * (ABNORMAL) Protime-INR (02/13/2025 12:53 PM CDT) SCRIBED PT 28.2(A) 9.0 - 11.5 sec [facility] SCRIB[facility] INR 2.8 2.0 - 3.0 sec [facility] Blood 02/13/2025 12:5 3 PM CDT us Suresh Verma MD LAB BLOOD ORDERABLES Fin al Result Performing Organization Address [facility] de Phone Number [facility] * (ABNORMAL) Comprehensive metabolic panel (02/13/2025 12:53 PM CDT) SCRIBED Sodium 137 135 - 146 mmol/L [facility] SCRIBED Potassium 4.2 3.5 - 5.3 mmol/L [facility] SCRIBED Chloride 101 98 - 110 mmol/L [facility] SCRIBED Carbon Dioxide 25 20 - 32 mmol/L [facility] SCRIB[facility] Anion Gap [facility] Comment:N/A SCRIBED Urea Nitrogen (BUN) 20 7 - 25 mg/dL [facility] SCRIBED Creatinine 1.42(A) 0.70 - 1.28 mg/dL [facility] SCRIBED Glucose 254(A) 65 - 99 mg/dL [facility] SCRIBED Calcium 7.6(A) 8.6 - 10.3 mg/dL [facility] SCRIBED Bilirubin 0.6 0.2 - 1.2 mg/dL [facility] SCRIBED Plasma Protein 5.7(A) 6.1 - 8.1 g/dL [facility] SCRIBED Albumin 3.5(A) 3.6 - 5.1 g/dL [facility] SCRIBED Alkaline Phosphatase 97 35 - 144 Units/L [facility] SCRIBED Alanine Transaminase (ALT) 31 9 - 46 Units/L [facility] SCRIBED Aspartate Transaminase (AST) 47(A) 10 - 35 Units/L [facility] SCRIBED eGFR 51 >=60 mL/min/1.7 3 m2 [facility] Blood 02/13/2025 12:5 3 PM CDT us Suresh Verma MD LAB BLOOD ORDERABLES Fin al Result [facility] * IR Exchange Non-Tunneled CVC (02/12/2025 1:59 PM CDT) Anatomical Region Laterality Modality Body Left X-Ray Angiograph y 02/12/2025 2:45 PM CDT Impressions 02/12/2025 2:45 PM CDT Successful tunneled 6-Swedish power line catheter placement via the existing IJ central line access. PLAN: The catheter is ready for immediate use. When treatment is completed, removal can be scheduled by calling 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 Currently the patient has a right internal jugular non-tunneled catheter in place. This was placed in 2021. The retention sutures have come out and patient presents for replacement. After discussion with the primary team we will place a tunneled line today given the long-term need for antibiotics. PROVIDER PRESENCE: Miller Tompkins PA-C, was present from the beginning to the end of the procedure. SEDATION: No sedation TECHNIQUE: The risks, benefits and alternatives were discussed and informed consent was obtained. Prior to beginning the procedure, [place] Protocol was used to confirm the patient's identity and planned procedure. Fluoroscopy time has been recorded in the electronic medical record. Maximum sterile barriers including cap, mask, hand hygiene, sterile gloves, sterile gown, large sterile drape and 2% chlorhexidine for cutaneous antisepsis were used. The skin over the right internal jugular vein was sterilely prepped, draped and infiltrated with 1% lidocaine with epinephrine 1-100,000. The vein was unable to be accessed using ultrasound guidance. The existing catheter was cut and a wire was inserted through the catheter into the central circulation using fluoroscopic guidance. A guidewire and catheter were then passed centrally using fluoroscopic guidance. The intravascular length from the access site to the right atrium was then measured. After infiltrating the skin in the subclavicular region with 1% buffered lidocaine, a short transverse incision was made and the 6-Swedish power line was tunneled to the internal jugular access site, cut to the appropriate length and inserted through a peel-away sheath. The catheter was flushed with 100 units per mL heparin. The incision in the lower neck was closed using 4-0 Monocryl. A sterile dressing was applied. ESTIMATED BLOOD LOSS: Minimal. CONDITION: Stable DISCHARGED TO: Recovery and then to home FINDINGS: The final fluoroscopic image demonstrates the catheter with its tip at the cavoatrial junction . No complications are seen. 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 Currently the patient has a right internal jugular non-tunneled catheter in place. This was placed in 2021. The retention sutures have come out and patient presents for replacement. After discussion with the primary team we will place a tunneled line today given the long-term need for antibiotics. PROVIDER PRESENCE: Miller Tompkins PA-C, was present from the beginning to the end of the procedure. SEDATION: No sedation TECHNIQUE: The risks, benefits and alternatives were discussed and informed consent was obtained. Prior to beginning the procedure, [place] Protocol was used to confirm the patient's identity and planned procedure. Fluoroscopy time has been recorded in the electronic medical record. Maximum sterile barriers including cap, mask, hand hygiene, sterile gloves, sterile gown, large sterile drape and 2% chlorhexidine for cutaneous antisepsis were used. The skin over the right internal jugular vein was sterilely prepped, draped and infiltrated with 1% lidocaine with epinephrine 1-100,000. The vein was unable to be accessed using ultrasound guidance. The existing catheter was cut and a wire was inserted through the catheter into the central circulation using fluoroscopic guidance. A guidewire and catheter were then passed centrally using fluoroscopic guidance. The intravascular length from the access site to the right atrium was then measured. After infiltrating the skin in the subclavicular region with 1% buffered lidocaine, a short transverse incision was made and the 6-Swedish power line was tunneled to the internal jugular access site, cut to the appropriate length and inserted through a peel-away sheath. The catheter was flushed with 100 units per mL heparin. The incision in the lower neck was closed using 4-0 Monocryl. A sterile dressing was applied. ESTIMATED BLOOD LOSS: Minimal. CONDITION: Stable DISCHARGED TO: Recovery and then to home FINDINGS: The final fluoroscopic image demonstrates the catheter with its tip at the cavoatrial junction . No complications are seen. IMPRESSION: Successful tunneled 6-Swedish power line catheter placement via the existing IJ central line access. PLAN: The catheter is ready for immediate use. When treatment is completed, removal can be scheduled by calling [facility] - [phone] [facility] - [phone] Electronically signed by: Miller Tompkins PA-C Americo Mcneil MD IMG IR PROCEDURES Final Result * (ABNORMAL) Protime-INR (02/05/2025) [facility] INR 3.30(A) 0.90 - 1.10 Blood Historical Provider LAB BLOOD ORDERABLES Maia l Result * (ABNORMAL) CBC with auto differential (02/04/2025 12:59 PM CDT) [facility] SCRIBED WBC 7.0 3.8 - 10.8 K/cumm [facility] SCRIBED Hemoglobin 12.1(A) 13.2 - 17.1 g/dL [facility] SCRIBED Hematocrit 38.5 38.5 - 50.0 % [facility] SCRIBED Platelets 142 140 - 400 K/cumm [facility] SCRIBED RBC 3.91(A) 4.20 - 5.80 M/cumm [facility] SCRIBED Eosinophils Abs 574(A) 15 - 500 K/cumm [facility] Blood 02/04/2025 12:5 9 PM CDT us Suresh Verma MD LAB BLOOD ORDERABLES Ayo leyla Result - Final Performing Organization Address City/[facility]/ZIP Co de Phone Number [facility] * (ABNORMAL) Protime-INR (02/04/2025 12:59 PM CDT) SCRIBED PT 32.4(A) 9.0 - 11.5 sec [facility] SCRIBED INR 3.3(A) 2.0 - 3.0 sec [facility] Blood 02/04/2025 12:5 9 PM CDT Suresh Verma MD LAB BLOOD ORDERABLES Fin al Result Performing Organization Address [facility] de Phone Number [facility] * (ABNORMAL) Comprehensive metabolic panel (02/04/2025 12:59 PM CDT) SCRIBED Sodium 135 135 - 146 mmol/L [facility] SCRIBED Potassium 4.1 3.5 - 5.3 mmol/L [facility] SCRIBED Chloride 100 98 - 110 mmol/L [facility] SCRIBED Carbon Dioxide 23 20 - 32 mmol/L [facility] SCRIBED Anion Gap [facility] Comment:N/A SCRIBED Urea Nitrogen (BUN) 24 7 - 25 mg/dL [facility] SCRIBED Creatinine 1.34(A) 0.70 - 1.28 mg/dL [facility] SCRIBED Glucose 361(A) 65 - 99 mg/dL [facility] SCRIBED Calcium 7.7(A) 8.6 - 10.3 mg/dL [facility] SCRIBED Bilirubin 0.6 0.2 - 1.2 mg/dL [facility] SCRIBED Plasma Protein 5.7(A) 6.1 - 8.1 g/dL [facility] SCRIBED Albumin 3.4(A) 3.6 - 5.1 g/dL [facility] SCRIBED Alkaline Phosphatase 102 35 - 144 Units/L [facility] SCRIBED Alanine Transaminase (ALT) 43 9 - 46 Units/L [facility] SCRIBED Aspartate Transaminase (AST) 49(A) 10 - 35 Units/L [facility] SCRIBED eGFR 55 >=60 mL/min/1.7 3 m2 [facility] Blood 02/04/2025 12:5 9 PM CDT Result [facility] Suresh Verma MD LAB BLOOD ORDERABLES Fin al Result [facility] * (ABNORMAL) Protime-INR (01/31/2025) INR 3.00(A) 0.90 - 1.10 Blood Result [facility] Crys Avila MD LAB BLOOD ORDERABLES Maia l Result * (ABNORMAL) CBC with auto differential (01/30/2025 11:49 AM CDT) SCRIBED WBC 7.8 3.8 - 10.8 K/cumm [facility] SCRIBED Hemoglobin 12.0(A) 13.2 - 17.1 g/dL [facility] SCRIBED Hematocrit 38.1(A) 38.5 - 50.0 % [facility] SCRIBED Platelets 160 140 - 400 K/cumm [facility] SCRIBED RBC 3.84(A) 4.20 - 5.80 M/cumm [facility] SCRIBED Eosinophils Abs 499 15 - 500 K/cumm [facility] Blood 01/30/2025 11:4 9 AM CDT Result [facility] Suresh Verma MD LAB BLOOD ORDERABLES Fin al Result [facility] * (ABNORMAL) Protime-INR (01/30/2025 11:49 AM CDT) SCRIBED PT 29.8(A) 9.0 - 11.5 sec [facility] INR 3.0 2.0 - 3.0 sec [facility] Blood 01/30/2025 11:4 9 AM CDT us Suresh Verma MD LAB BLOOD ORDERABLES Fin al Result Performing Organization Address [facility]/ZIP Co de Phone Number [facility] * (ABNORMAL) Comprehensive metabolic panel (01/30/2025 11:49 AM CDT) SCRIBED Sodium 140 135 - 146 mmol/L [facility] SCRIBED Potassium 4.4 3.5 - 5.3 mmol/L [facility] SCRIBED Chloride 104 98 - 110 [facility] SCRIBED Carbon Dioxide 27 20 - 32 mmol/L [facility] SCRIB[facility] Anion Gap [facility] Comment:N/A SCRIBED Urea Nitrogen (BUN) 22 7 - 25 mg/dL [facility] SCRIB[facility] Creatinine 1.26 0.70 - 1.28 mg/dL [facility] SCRIBED Glucose 167(A) 65 - 99 mg/dL [facility] SCRIBED Calcium 8.3(A) 8.6 - 10.3 mg/dL [facility] SCRIBED Bilirubin 0.6 0.2 - 1.2 mg/dL [facility] SCRIBED Plasma Protein 5.8(A) 6.1 - 8.1 g/dL [facility] SCRIBED Albumin 3.5(A) 3.6 - 5.1 g/dL [facility] SCRIBED Alkaline Phosphatase 103 35 - 144 Units/L [facility] SCRIBED Alanine Transaminase (ALT) 33 9 - 46 Units/L [facility] SCRIBED Aspartate Transaminase (AST) 42(A) 10 - 35 Units/L [facility] SCRIBED eGFR 59 >=60 mL/min/1.7 3 m2 [facility] Blood 01/30/2025 11:4 9 AM CDT us Suresh Verma MD LAB BLOOD ORDERABLES Fin al Result Performing Organization Address [facility]/State/ZIP Co de Phone Number [facility] * (ABNORMAL) Protime-INR (01/24/2025) INR 2.90(A) 0.90 - 1.10 Blood Crys Avila MD LAB BLOOD ORDERABLES Maia l Result * (ABNORMAL) CBC with auto differential (01/23/2025 2:35 PM CDT) SCRIBED WBC 7.8 4.4 - 11.0 K/cumm TXP NO LAB FOUND SCRIBED Hemoglobin 11.6(A) 14.0 - 17.5 g/dL TXP NO LAB FOUND SCRIBED Hematocrit 34.6(A) 41.5 - 50.4 % TXP NO LAB FOUND SCRIBED Platelets 127(A) 151 - 353 K/cumm TXP NO LAB FOUND SCRIBED RBC TXP NO L AB FOUND Comment:N/A Blood 01/23/2025 2:35 PM CDT us Suresh Verma MD LAB BLOOD ORDERABLES Fin al Result [facility] NO LAB FOUND * (ABNORMAL) Comprehensive metabolic panel (01/23/2025 2:35 PM CDT) Pathologist [facility] SCRIBED Sodium 138 136 - 145 mmol/L TXP NO LAB FOUND SCRIBED Potassium 4.0 3.5 - 5.1 mmol/L TXP NO LAB FOUND SCRIBED Chloride 103 100 - 108 mmol/L TXP NO LAB FOUND SCRIBED Carbon Dioxide 28.8 21 - 32 mmol/L TXP NO LAB FOUND SCRIBED Anion Gap 6.2 5 - 15 mmol/L TXP NO LAB FOUND SCRIBED Urea Nitrogen (BUN) 20(A) 7 - 18 mg/dl TXP NO LAB FOUND SCRIBED Creatinine 1.27 0.7 - 1.3 mg/dl TXP NO LAB FOUND SCRIBED Glucose 128(A) 70 - 99 mg/dl TXP NO LAB FOUND SCRIBED Calcium 7.5(A) 8.5 - 10.1 mg/dl TXP NO LAB FOUND SCRIBED Bilirubin 0.5 0.2 - 1.2 mg/dl TXP NO LAB FOUND SCRIBED Plasma Protein 5.6(A) 6.4 - 8.2 g/dl TXP NO LAB FOUND SCRIBED Albumin 2.9(A) 3.4 - 5.0 g/dl TXP NO LAB FOUND SCRIBED Alkaline Phosphatase 121 50 - 136 Units/L TXP NO LAB FOUND SCRIBED Alanine Transaminase (ALT) 41 16 - 60 Units/L TXP NO LAB FOUND SCRIBED Aspartate Transaminase (AST) 42(A) 15 - 37 Units/L TXP NO LAB FOUND SCRIBED eGFR 59 >90 TXP NO LAB FOUND Blood 01/23/2025 2:35 PM CDT Suresh Verma MD LAB BLOOD ORDERABLES Fin al Result Performing Organization Address City/[facility]/ZIP Co de Phone Number TXP NO LAB FOUND * (ABNORMAL) Protime-INR (01/23/2025) [facility] SCRIBED PT 32.2(A) 9.1 - 12.[address] [facility] SCRIBED INR 2.9 2.0 - 3.[address] [facility] Blood 01/23/2025 Suresh Verma MD LAB BLOOD ORDERABLES Fin al Result Performing Organization Address [facility] de Phone Number [facility] * (ABNORMAL) Protime-INR (01/15/2025) Pathologist [facility] INR 2.40(A) 0.90 - 1.10 Blood Crys Avila MD LAB BLOOD ORDERABLES Maia l Result * (ABNORMAL) CBC with auto differential (01/14/2025) SCRIBED WBC 7.7 4.5 - 11.0 K/cumm TXP NO LAB FOUND SCRIBED Hemoglobin 11.1(A) 14.0 - 18.0 g/dL TXP NO LAB FOUND SCRIBED Hematocrit 33.5(A) 43.0 - 54.0 % TXP NO LAB FOUND SCRIBED Platelets 137 130 - 400 K/cumm TXP NO LAB FOUND SCRIBED RBC TXP NO L AB FOUND Comment:n/a SCRIBED Eosinophils Abs 0.6(A) 0.0 - 0.5 K/cumm TXP NO LAB FOUND Blood 01/14/2025 Suresh Verma MD LAB BLOOD ORDERABLES Fin al Result Performing Organization Address [facility] de Phone Number TXP NO LAB FOUND * (ABNORMAL) Protime-INR (01/14/2025) SCRIBED PT 26.7(A) 10.2 - 12.9 sec TX[facility] NO LAB FOUND SCRIBED INR 2.4 2.0 - 3.5 sec TXP NO LAB FOUND Blood 01/14/2025 Suresh Verma MD LAB BLOOD ORDERABLES Fin al Result Performing Organization Address [facility] de Phone Number TXP NO LAB FOUND * (ABNORMAL) Comprehensive metabolic panel (01/14/2025) SCRIBED Sodium 137 136 - 145 mmol/L TXP NO LAB FOUND SCRIBED Potassium 3.8 3.5 - 5.1 mmol/L TXP NO LAB FOUND SCRIBED Chloride 103 97 - 115 mmol/L TXP NO LAB FOUND SCRIBED Carbon Dioxide 27.0 21 - 32 mmol/L TXP NO LAB FOUND SCRIBED Anion Gap 7.0 2 - 10 mmol/L TXP NO LAB FOUND SCRIBED Urea Nitrogen (BUN) 24(A) 7 - 18 mg/dl TXP NO LAB FOUND SCRIBED Creatinine 1.45(A) 0.7 - 1.3 mg/dl TXP NO LAB FOUND SCRIBED Glucose 281(A) 70 - 99 mg/dl TXP NO LAB FOUND SCRIBED Calcium 7.9(A) 8.5 - 10.1 mg/dl TXP NO LAB FOUND SCRIBED Bilirubin 0.5 0.2 - 1.2 mg/dl TXP NO LAB FOUND SCRIBED Plasma Protein 5.6(A) 6.4 - 8.2 g/dl TXP NO LAB FOUND SCRIBED Albumin 2.8(A) 3.4 - 5.0 g/dl TXP NO LAB FOUND SCRIBED Alkaline Phosphatase 128 50 - 136 Units/L TXP NO LAB FOUND SCRIBED Alanine Transaminase (ALT) 35 16 - 60 Units/L TXP NO LAB FOUND SCRIBED Aspartate Transaminase (AST) 33 15 - 37 Units/L TXP NO LAB FOUND SCRIBED eGFR 50 >90 TXP NO LAB FOUND BUN_Creat Ratio 16.6 6 - 26 TXP NO LAB FOUND Alb/glob ratio 1.0 1.0 - 2.0 TXP N O LAB FOUND Blood 01/14/2025 Suresh Verma MD LAB BLOOD ORDERABLES Fin al Result [facility] NO LAB FOUND * (ABNORMAL) Protime-INR (01/09/2025) INR 1.30(A) 0.90 - 1.10 Blood Crys Avila MD LAB BLOOD ORDERABLES Maia l Result * (ABNORMAL) CBC with auto differential (01/08/2025) SCRIBED WBC 6.3 3.8 - 10.8 K/cumm [facility] SCRIBED Hemoglobin 11.3(A) 13.2 - 17.1 g/dL [facility] SCRIBED Hematocrit 36.4(A) 38.5 - 50.0 % [facility] SCRIBED Platelets 147 140 - 400 K/cumm [facility] SCRIBED RBC [facility] Comment:n/a SCRIBED Eosinophils Abs 605.0(A) 15.0 - 500.0 K/cumm [facility] Blood 01/08/2025 Suresh Verma MD LAB BLOOD ORDERABLES Ayo leyla Result - Final [facility] * (ABNORMAL) Protime-INR (01/08/2025) SCRIBED PT 13.8(A) 9.0 - 11.5 sec [facility] SCRIBED INR 1.3 0.9 - 4.0 sec [facility] Blood 01/08/2025 us Suresh Verma MD LAB BLOOD ORDERABLES Fin al Result Performing Organization Address [facility] Co de Phone Number [facility] * (ABNORMAL) Comprehensive metabolic panel (01/08/2025) SCRIBED Sodium 142 135 - 146 mmol/L [facility] SCRIBED Potassium 3.8 3.5 - 5.3 mmol/L [facility] SCRIBED Chloride 107 98 - 110 mmol/L [facility] SCRIBED Carbon Dioxide 28 20 - 32 mmol/L [facility] SCRIBED Urea Nitrogen (BUN) 20 7 - 25 mg/dl [facility] SCRIBED Creatinine 1.04 0.70 - 1.28 mg/dl [facility] SCRIBED Glucose 67 65 - 99 mg/dl [facility] SCRIBED Calcium 8.3(A) 8.6 - 10.3 mg/dl [facility] Bilirubin 0.6 0.2 - 1.2 mg/dl [facility] Plasma Protein 5.9(A) 6.1 - 8.1 g/dl [facility] Albumin 3.6 3.6 - 5.1 g/dl [facility] Alkaline Phosphatase 130 35 - 144 Units/L [facility] Alanine Transaminase (ALT) 48(A) 9 - 46 Units/L [facility] Aspartate Transaminase (AST) 69(A) 10 - 35 Units/L [facility] SCRIBED eGFR 74 >=60 [facility] Globulin 2.3 1.9 - 3.7 g/dL (calc) [facility] Alb/glob ratio 1.6 1.0 - 2.5 [facility] Blood 01/08/2025 us Suresh Verma MD LAB BLOOD ORDERABLES Ayo leyla Result - Final Performing Organization Address [facility]/ZIP Co de Phone Number [facility] * (ABNORMAL) CBC with auto differential (01/01/2025 2:50 PM CDT) SCRIBED WBC 7.5 4.5 - 11.0 K/cumm TXP NO LAB FOUND SCRIBED Hemoglobin 11.2(A) 14.0 - 18.0 g/dL TXP NO LAB FOUND SCRIBED Hematocrit 34.2(A) 43.0 - 54.0 % TXP NO LAB FOUND SCRIBED Platelets 148 130 - 400 K/cumm TXP NO LAB FOUND SCRIBED RBC TXP NO L AB FOUND Comment:N/A SCRIBED Eosinophils Abs 0.5 0.0 - 0.5 K/cumm TXP NO LAB FOUND Blood 01/01/2025 2:50 PM CDT Suresh Verma MD LAB BLOOD ORDERABLES Fin al Result Performing Organization Address [facility] de Phone Number TXP NO LAB FOUND * (ABNORMAL) Protime-INR (01/01/2025 2:50 PM CDT) SCRIBED PT 19.5(A) 10.2 - 12.9 sec TXP NO LAB FOUND SCRIBED INR 1.7(A) 2.0 - 3.0 sec TXP NO LAB FOUND Blood 01/01/2025 2:50 PM CDT Suresh Verma MD LAB BLOOD ORDERABLES Fin al Result Performing Organization Address [facility] de Phone Number TXP NO LAB FOUND * (ABNORMAL) Comprehensive metabolic panel (01/01/2025 2:50 PM CDT) SCRIBED Sodium 141 136 - 145 mmol/L TXP NO LAB FOUND SCRIBED Potassium 4.2 3.5 - 5.1 mmol/L TXP NO LAB FOUND SCRIBED Chloride 109 98 - 115 mmol/L TXP NO LAB FOUND SCRIBED Carbon Dioxide 26.9 21 - 32 mmol/L TXP NO LAB FOUND SCRIBED Anion Gap 5.1 2 - 10 mmol/L TXP NO LAB FOUND SCRIBED Urea Nitrogen (BUN) 23(A) 7 - 18 mg/dl TXP NO LAB FOUND SCRIBED Creatinine 1.42(A) 0.7 - 1.3 mg/dl TXP NO LAB FOUND SCRIBED Glucose 102(A) 70 - 99 mg/dl TXP NO LAB FOUND SCRIBED Calcium 8.2(A) 8.5 - 10.1 mg/dl TXP NO LAB FOUND SCRIBED Bilirubin 0.6 0.2 - 1.2 mg/dl TXP NO LAB FOUND SCRIBED Plasma Protein 5.5(A) 6.4 - 8.2 g/dl TXP NO LAB FOUND SCRIBED Albumin 2.7(A) 3.4 - 5.0 g/dl TXP NO LAB FOUND SCRIBED Alkaline Phosphatase 122 50 - 136 Units/L TXP NO LAB FOUND SCRIBED Alanine Transaminase (ALT) 47 16 - 60 Units/L TXP NO LAB FOUND SCRIBED Aspartate Transaminase (AST) 38(A) 15 - 37 Units/L TXP NO LAB FOUND SCRIBED eGFR 51 >90 TXP NO LAB FOUND Blood 01/01/2025 2:50 PM CDT Result [facility] Suresh Verma MD LAB BLOOD ORDERABLES Fin al Result TXP NO LAB FOUND * (ABNORMAL) Protime-INR (01/01/2025) INR 1.70(A) 0.90 - 1.10 Blood Result [facility] Provider LAB BLOOD ORDERABLES Maia l Result * (ABNORMAL) Protime-INR (12/25/2024) INR 1.30(A) 0.90 - 1.10 Blood Result [facility] Provider LAB BLOOD ORDERABLES Maia l Result * (ABNORMAL) CBC with auto differential (12/24/2024 2:15 PM CDT) SCRIBED WBC 6.5 4.5 - 11.0 K/cumm TXP NO LAB FOUND SCRIBED Hemoglobin 11.1(A) 14.0 - 18.0 g/dL TXP NO LAB FOUND SCRIBED Hematocrit 34.1(A) 43.0 - 54.0 % TXP NO LAB FOUND SCRIBED Platelets 129(A) 130 - 400 K/cumm TXP NO LAB FOUND SCRIBED RBC TXP NO L AB FOUND Comment:N/A SCRIBED Eosinophils Abs 0.5 0.0 - 0.5 K/cumm TXP NO LAB FOUND Blood 12/24/2024 2:15 PM CDT us Suresh Verma MD LAB BLOOD ORDERABLES Fin al Result Performing Organization Address [facility] de Phone Number TXP NO LAB FOUND * (ABNORMAL) Protime-INR (12/24/2024 2:15 PM CDT) SCRIBED PT 15.3(A) 10.2 - 12.9 sec TXP NO LAB FOUND SCRIBED INR 1.3(A) 2.0 - 3.0 sec TXP NO LAB FOUND Blood 12/24/2024 2:15 PM CDT us Suresh Verma MD LAB BLOOD ORDERABLES Fin al Result Performing Organization Address [facility] de Phone Number TXP NO LAB FOUND * (ABNORMAL) Comprehensive metabolic panel (12/24/2024 2:15 PM CDT) SCRIBED Sodium 139 136 - 145 mmol/L TXP NO LAB FOUND SCRIBED Potassium 4.8 3.5 - 5.1 mmol/L TXP NO LAB FOUND SCRIBED Chloride 106 97 - 115 mmol/L TXP NO LAB FOUND SCRIBED Carbon Dioxide 24.1 21 - 32 mmol/L TXP NO LAB FOUND SCRIBED Anion Gap 8.9 2 - 10 mmol/L TXP NO LAB FOUND SCRIBED Urea Nitrogen (BUN) 26(A) 7 - 18 mg/dl TXP NO LAB FOUND SCRIBED Creatinine 1.44(A) 0.7 - 1.3 mg/dl TXP NO LAB FOUND SCRIBED Glucose 273(A) 70 - 99 mg/dl TXP NO LAB FOUND SCRIBED Calcium 8.5 8.5 - 10.1 mg/dl TXP NO LAB FOUND SCRIBED Bilirubin 0.4 0.2 - 1.2 mg/dl TXP NO LAB FOUND SCRIBED Plasma Protein 6.0(A) 6.4 - 8.2 g/dl TXP NO LAB FOUND SCRIBED Albumin 2.8(A) 3.4 - 5.0 g/dl TXP NO LAB FOUND SCRIBED Alkaline Phosphatase 153(A) 50 - 136 Units/L TXP NO LAB FOUND SCRIBED Alanine Transaminase (ALT) 61(A) 16 - 60 Units/L TXP NO LAB FOUND SCRIBED Aspartate Transaminase (AST) 44(A) 15 - 37 Units/L TXP NO LAB FOUND SCRIBED eGFR 50 >90 TXP NO LAB FOUND Blood 12/24/2024 2:15 PM CDT Result [facility] Suresh Verma MD LAB BLOOD ORDERABLES Fin al Result Performing Organization Address [facility] de Phone Number TXP NO LAB FOUND * (ABNORMAL) Protime-INR (12/18/2024) Pathologist [facility] INR 1.30(A) 0.90 - 1.10 Blood Result [facility] Crys Avila MD LAB BLOOD ORDERABLES Maia l Result * (ABNORMAL) CBC with auto differential (12/17/2024) Pathologist [facility] SCRIBED WBC 6.7 4.5 - 11.0 K/cumm TXP NO LAB FOUND SCRIBED Hemoglobin 11.6(A) 14.0 - 18.0 g/dL TXP NO LAB FOUND SCRIBED Hematocrit 36.0(A) 43.0 - 54.0 % TXP NO LAB FOUND SCRIBED Platelets 158 130 - 400 K/cumm TXP NO LAB FOUND SCRIBED RBC TXP NO L AB FOUND Comment:n/a Eosinophil abs 0.45 0.04 - 0.54 TXP NO LAB FOUND Blood 12/17/2024 Result [facility] Suresh Verma MD LAB BLOOD ORDERABLES Ayo leyla Result - Final Performing Organization Address [facility]/ZIP Co de Phone Number TXP NO LAB FOUND * (ABNORMAL) Protime-INR (12/17/2024) SCRIBED PT 14.7(A) 10.2 - 12.9 sec TXP NO LAB FOUND SCRIBED INR 1.3(A) 2.0 - 3.5 sec TXP NO LAB FOUND Blood 12/17/2024 us Suresh Verma MD LAB BLOOD ORDERABLES Fin al Result TXP NO LAB FOUND * (ABNORMAL) Comprehensive metabolic panel (12/17/2024) SCRIBED Sodium 142 136 - 145 mmol/L TXP NO LAB FOUND SCRIBED Potassium 4.4 3.5 - 5.1 mmol/L TXP NO LAB FOUND SCRIBED Chloride 110 97 - 115 mmol/L TXP NO LAB FOUND SCRIBED Carbon Dioxide 24.5 21 - 32 mmol/L TXP NO LAB FOUND SCRIBED Anion Gap 7.5 2 - 10 mmol/L TXP NO LAB FOUND SCRIBED Urea Nitrogen (BUN) 25(A) 7 - 18 mg/dl TXP NO LAB FOUND SCRIBED Creatinine 1.31(A) 0.7 - 1.3 mg/dl TXP NO LAB FOUND SCRIBED Glucose 216(A) 70 - 99 mg/dl TXP NO LAB FOUND SCRIBED Calcium 8.7 8.5 - 10.1 mg/dl TXP NO LAB FOUND SCRIBED Bilirubin 0.4 0.2 - 1.2 mg/dl TXP NO LAB FOUND SCRIBED Plasma Protein 6.3(A) 6.4 - 8.2 g/dl TXP NO LAB FOUND SCRIBED Albumin 3.0(A) 3.4 - 5.0 g/dl TXP NO LAB FOUND SCRIBED Alkaline Phosphatase 142(A) 50 - 136 Units/L TXP NO LAB FOUND SCRIBED Alanine Transaminase (ALT) 84(A) 16 - 60 Units/L TXP NO LAB FOUND SCRIBED Aspartate Transaminase (AST) 70(A) 15 - 37 Units/L TXP NO LAB FOUND SCRIBED eGFR 56 >90 TXP NO LAB FOUND Alb/glob ratio 0.9(A) 1.0 - 2.0 TXP N O LAB FOUND BUN_Creat Ratio 19.1 6 - 26 TXP NO LAB FOUND Blood 12/17/2024 us Suresh Verma MD LAB BLOOD ORDERABLES Fin al Result TXP NO LAB FOUND * Surgical pathology (12/13/2024 8:48 PM CDT) Tissue (Skin, shave biopsy) 12/13/2024 8:48 PM CDT 12/13/2024 8:48 PM CDT Narrative [facility] - 12/17/2024 1:22 PM CDT EPIC results best viewed via link to PDF [facility] [address], [address], [place] [address] [email or web address] Note to Patients: This [...] : 1950 (Age: 74) Specimen Information: COLLECTED: 12/13/2024 RECEIVED: 12/13/2024 REPORTED: 12/17/2024 Submitting Physician Information: Kevin Dodd M.D. Dermatology [facility] ([facility]), [address], [address] [place] [address], DERMATOPATHOLOGY REPORT RESULTS DIAGNOSIS: A. SKIN, LEFT LATERAL CALF, SHAVE BIOPSY: SQUAMOUS CELL CARCINOMA, WELL-DIFFERENTIATED, SUPERFICIALLY INVASIVE sxt/lac By this signature, I attest that the above diagnosis is based upon my personal examination of the slides(and/or other material indicated in the diagnosis). Chasity López M.D. Report Electronically Reviewed and Signed Out By Chasity López M.D. 12/17/2024 13:22:57 CLINICAL INFORMATION R/O SCC SPECIMEN DATA MICROSCOPIC DESCRIPTION: Irregular aggregates of atypical keratinocytes extend from the undersurface of the epidermis into the upper portions of the reticular dermis. (C44.92) GROSS DESCRIPTION: Received in a formalin-containing bottle is a superficial fragment of pale mosqueda, finely scaling, and semi-translucent skin measuring 1.2 by 1.2 by 0.5 cm. The surgical margin is inked blue. The specimen bears a raised, white, verrucous, well-circumscribed area measuring 0.7 by 0.7 by 0.4 cm. The specimen is sectioned into 5 pieces and submitted entirely in a single cassette. Due to shrinkage, measurements may be different than those at the time of procedure. ag/dxv ICD-9 A; ZSD.1469 Clerical Data A; 92733 The characteristics of special, immunohistochemical, and immunofluorescence stains and in-situ hybridization tests performed by the [facility] were deemed acceptable in ongoing manager quality systems measures and in compliance with regulations drawn from the Clinical Laboratory Improvement Act gh2113 (CLIA '88). Control reactions for all stains [...] a facility that is certified by the [facility] as a high-complexity laboratory under CLIA '88. These tests are used for clinical purposes and are not investigational. us Kevin Dodd MD LAB PATHOLOGY ORDERABL ES Final Result [facility] [address] [place] [id number] * POCT glucose (12/10/2024 5:32 PM CDT) Glucose, POC 186 70 - 199 mg/dL Blood 12/10/2024 5:32 PM CDT 12/10/2024 5:32 PM CDT Héctor Holder MD LAB POCT ORDERABLES - DEVICE Final Result Performing Organization Address [facility] Co de Phone Number [facility] [place] [address] * eGFR (12/10/2024 3:04 PM CDT) eGFR 68 >=60 mL/min/1. 73 m2 Comment: Interpretive Data [...] interpretive data was last reviewed 2021. Blood 12/10/2024 3:04 PM CDT 12/10/2024 3:30 PM CDT us Kentrell Cervantes MD LAB BLOOD ORDERABLES Final Result Performing Organization Address [facility] Co de Phone Number [facility] Department [place] [address] * (ABNORMAL) Differential, auto (12/10/2024 3:04 PM CDT) Neutrophil abs 5.57 1.50 - 6.50 K/cumm Imm gran abs 0.06 0.00 - 0.10 K/cumm [facility] Lymphocyte abs 0.77(L) 0.80 - 3.30 K/cumm [facility] Monocyte abs 0.95(H) 0.20 - 0.80 K/cumm [facility] Eosinophil abs 0.55(H) 0.00 - 0.50 K/cumm [facility] Basophil abs 0.08 0.00 - 0.10 K/cumm [facility] Neutrophil pct 69.8 % [facility] Comment: Interpretive Data Percent cell count reference ranges are not reported, since discordance with absolute values may lead to misinterpretation of CBC data. Current Interpretive Data was last revised on 2017. Imm gran pct 0.8 % [facility] Comment: Interpretive Data Percent cell count reference ranges are not reported, since discordance with absolute values may lead to misinterpretation of CBC data. Current Interpretive Data was last revised on 2017. Lymphocyte pct 9.6 % [facility] Comment: Interpretive Data Percent cell count reference ranges are not reported, since discordance with absolute values may lead to misinterpretation of CBC data. Current Interpretive Data was last revised on 2017. Monocyte pct 11.9 % [facility] Comment: Interpretive Data Percent cell count reference ranges are not reported, since discordance with absolute values may lead to misinterpretation of CBC data. Current Interpretive Data was last revised on 2017. Eosinophil pct 6.9 % [facility] Comment: Interpretive Data Percent cell count reference ranges are not reported, since discordance with absolute values may lead to misinterpretation of CBC data. Current Interpretive Data was last revised on 2017. Basophil pct 1.0 % [facility] Comment: Interpretive Data Percent cell count reference ranges are not reported, since discordance with absolute values may lead to misinterpretation of CBC data. Current Interpretive Data was last revised on 2017. Blood 12/10/2024 3:04 PM CDT 12/10/2024 3:30 PM CDT us Kentrell Cervantes MD LAB BLOOD ORDERABLES Final Result [facility] [place] [address] * (ABNORMAL) CBC with auto differential (12/10/2024 3:04 PM CDT) [facility] WBC 7.98 3.80 - 9.90 K/cumm Hgb 11.5(L) 13.0 - 17.5 g/dL [facility] Hct 33.9(L) 38.9 - 50.3 % [facility] Plt 158 150 - 400 K/cumm [facility] MPV 10.7 9.1 - 12.3 fL [facility] RBC 3.68(L) 4.30 - 5.80 M/cumm [facility] MCV 92.1 81.3 - 96.4 fL [facility] MCH 31.3 27.1 - 33.3 pg [facility] MCHC 33.9 32.3 - 35.7 g/dL [facility] RDW CV 14.2 11.1 - 14.9 % [facility] RDW SD 48.1 35.7 - 48.1 fL [facility] NRBC abs 0.00 0.00 - 0.01 K/cumm [facility] Blood 12/10/2024 3:04 PM CDT 12/10/2024 3:30 PM CDT Kentrell Cervantes MD LAB BLOOD ORDERABLES Final Result Performing Organization Address City/State/[facility] Co de Phone Number [facility] [place] [address] * (ABNORMAL) Protime-INR (12/10/2024 3:04 PM CDT) [facility] PT 15.1(H) 9.7 - 13.0 sec INR 1.39(H) 0.90 - 1.20 [facility] Comment: Interpretive data Oral anticoagulant therapeutic ranges: Venous thromboembolism prophylaxis or treatment: 2.0-3.0 CARDIOLOGY Standard range: 2.0-3.0 High-intensity range: 2.5-3.5 Refer to indication-specific guidelines for appropriate target ranges for prosthetic heart valve replacement. Current interpretive data was last revised on 2019. Blood 12/10/2024 3:04 PM CDT 12/10/2024 3:38 PM CDT us Abel Mak MD LAB BLOOD ORDERABLES Maia l Result [facility] Department [place] [address] * (ABNORMAL) Basic metabolic panel (12/10/2024 3:04 PM CDT) Pathologist [facility] Sodium 142 135 - 145 mmol/L Potassium, pl 4.5 3.3 - 4.9 mmol/L [facility] Chloride 108 97 - 110 mmol/L [facility] CO2 25 22 - 32 mmol/L [facility] Anion gap 9 2 - 15 mmol/L [facility] BUN 22 6 - 25 mg/dL [facility] Creatinine 1.12 0.80 - 1.30 mg/dL [facility] Glucose 201(H) 70 - 199 mg/dL [facility] Comment: Interpretive Data Fasting glucose >/= [...] interpretive data was last revised 2022. Calcium 8.7 8.5 - 10.3 mg/dL [facility] Blood 12/10/2024 3:04 PM CDT 12/10/2024 3:30 PM CDT us Kentrell Cervantes MD LAB BLOOD ORDERABLES Final Result [facility] Department [place] [address] * BLOOD MISC TO [place] (12/06/2024 10:49 AM CDT) Test name, chem toxcg [place] ref [facility] Misc See Footnote [facility] Comment: Test Result Flag Unit RefValue Toxocara Ab, IgG, S Negative Negative No antibodies to Toxocara species detected. Repeat testing may be indicated in patients presenting soon after possible exposure to Toxocara. Test Performed by: [place] [address] [employer]er: George George Ph.D.; CLIA# [id number] Blood 12/06/2024 10:4 9 AM CDT 12/06/2024 12:37 PM CDT us Americo Mcneil MD LAB BLOOD ORDERABLES Fi nal Result [facility] [address] [facility]. [place] [address] [place] [facility] * eGFR (12/06/2024 10:49 AM CDT) eGFR [...] of Race in Diagnosing Kidney Disease, JASN 2021). The CKD-EPI equation should not be used for patients with unstable renal function and has not been validated in children and those over 70. Current interpretive data was last reviewed 2021. Blood 12/06/2024 10:4 9 AM CDT 12/06/2024 11:35 AM CDT us Chloe Keys NP LAB BLOOD ORDERABLES Final Result Performing Organization Address City/[facility]/ZIP Co de Phone Number [facility] [address] [address] [place] [address] * eGFR (12/06/2024 10:49 AM CDT) eGFR [...] of Race in Diagnosing Kidney Disease, JASN 2021). The CKD-EPI equation should not be used for patients with unstable renal function and has not been validated in children and those over 70. Current interpretive data was last reviewed 2021. Blood 12/06/2024 10:4 9 AM CDT 12/06/2024 11:35 AM CDT us Americo Mcneil MD LAB BLOOD ORDERABLES Fi nal Result Performing Organization Address City/[facility]/ZIP Co de Phone Number [facility] [address] [facility]. Department [place] [address] * (ABNORMAL) Differential, auto (12/06/2024 10:49 AM CDT) Neutrophil abs 5.68 1.50 - 6.50 K/cumm Imm gran abs 0.06 0.00 - 0.10 K/cumm [facility] Lymphocyte abs 0.96 0.80 - 3.30 K/cumm [facility] Monocyte abs 0.76 0.20 - 0.80 K/cumm [facility] Eosinophil abs 0.58(H) 0.00 - 0.50 K/cumm [facility] Basophil abs 0.09 0.00 - 0.10 K/cumm [facility] Neutrophil pct 70.0 % [facility] Comment: Interpretive Data Percent cell count reference ranges are not reported, since discordance with absolute values may lead to misinterpretation of CBC data. Current Interpretive Data was last revised on 2017. Imm gran pct 0.7 % [facility] Comment: Interpretive Data Percent cell count reference ranges are not reported, since discordance with absolute values may lead to misinterpretation of CBC data. Current Interpretive Data was last revised on 2017. Lymphocyte pct 11.8 % [facility] Comment: Interpretive Data Percent cell count reference ranges are not reported, since discordance with absolute values may lead to misinterpretation of CBC data. Current Interpretive Data was last revised on 2017. Monocyte pct 9.3 % [facility] Comment: Interpretive Data Percent cell count reference ranges are not reported, since discordance with absolute values may lead to misinterpretation of CBC data. Current Interpretive Data was last revised on 2017. Eosinophil pct 7.1 % [facility] Comment: Interpretive Data Percent cell count reference ranges are not reported, since discordance with absolute values may lead to misinterpretation of CBC data. Current Interpretive Data was last revised on 2017. Basophil pct 1.1 % [facility] Comment: Interpretive Data Percent cell count reference ranges are not reported, since discordance with absolute values may lead to misinterpretation of CBC data. Current Interpretive Data was last revised on 2017. Blood 12/06/2024 10:4 9 AM CDT 12/06/2024 11:35 AM CDT us Chloe Keys NP LAB BLOOD ORDERABLES Final Result Performing Organization Address [facility] Co de Phone Number [facility] [address] [facility]. [place] [address] * HIV 1/2 Antibody plus p24 Antigen Blood (12/06/2024 10:49 AM CDT) Pathologist [facility] HIV 1/2 ab + p24 ag Nonreactive Nonreactive Comment: Nonreactive for HIV-1 antigen and HIV-1/HIV-2 antibodies. No laboratory evidence of HIV infection. If acute HIV infection is suspected, consider testing for HIV-1 RNA. Testing performed by: [facility], [facility], [place]., [address] Blood 12/06/2024 10:4 9 AM CDT 12/06/2024 2:51 PM CDT us Americo Mcneil MD LAB MICROBIOLOGY - GENE RAL ORDERABLES Final Result Performing Organization Address [facility] Co de Phone Number [facility] [address] [facility] [place] [address] * (ABNORMAL) CBC with auto differential (12/06/2024 10:49 AM CDT) Pathologist [facility] WBC 8.13 3.80 - 9.90 K/cumm Hgb 13.3 13.0 - 17.5 g/dL [facility] Hct 40.9 38.9 - 50.3 % [facility] Plt 182 150 - 400 K/cumm [facility] MPV 10.9 9.1 - 12.3 fL [facility] RBC 4.26(L) 4.30 - 5.80 M/cumm [facility] MCV 96.0 81.3 - 96.4 fL [facility] MCH 31.2 27.1 - 33.3 pg [facility] MCHC 32.5 32.3 - 35.7 g/dL [facility] RDW CV 14.5 11.1 - 14.9 % [facility] RDW SD 50.9(H) 35.7 - 48.1 fL [facility] NRBC abs 0.00 0.00 - 0.01 K/cumm [facility] Blood 12/06/2024 10:4 9 AM CDT 12/06/2024 11:35 AM CDT Chloe Keys [employer] LAB BLOOD ORDERABLES Final Result Performing Organization Address [facility] de Phone Number [facility] [address] [facility] [employer] [place], [place] [id number] * (ABNORMAL) Protime-INR (12/06/2024 10:49 AM CDT) PT 15.1(H) 9.7 - 13.0 sec INR 1.39(H) 0.90 - 1.20 [facility] Comment: Interpretive data Oral anticoagulant [...] BLOOD ORDERABLES Final Result Performing Organization Address [facility] de Phone Number [facility] [address] [facility] [employer] [place], [place] [id number] * (ABNORMAL) Lactate dehydrogenase (LD) (12/06/2024 10:49 AM CDT) Lactate dehydrogenase (LDH) 280(H) 100 - 250 Units/L Blood 12/06/2024 10:4 9 AM CDT 12/06/2024 11:35 AM CDT Chloe Keys [employer] LAB BLOOD ORDERABLES Final Result [facility] [id number] [facility] Department [place] [address] * (ABNORMAL) Comprehensive metabolic panel (12/06/2024 10:49 AM CDT) Sodium 141 135 - 145 mmol/L Potassium, pl 4.5 3.3 - 4.9 mmol/L [facility] Chloride 106 97 - 110 mmol/L [facility] CO2 23 22 - 32 mmol/L [facility] Anion gap 12 2 - 15 mmol/L [facility] BUN 22 6 - 25 mg/dL [facility] Creatinine 1.24 0.80 - 1.30 mg/dL [facility] Glucose 173 70 - 199 mg/dL [facility] Comment: [...] CDT 12/06/2024 11:35 AM CDT Chloe Keys [employer] LAB BLOOD ORDERABLES Final Result [facility] [address] [facility] Department [place] [address] * (ABNORMAL) Comprehensive metabolic panel (12/06/2024 10:49 [...] [facility] AST 48 10 - 50 Units/L [facility] Blood 12/06/2024 10:4 9 AM CDT 12/06/2024 11:35 AM CDT Americo Mcneil MD LAB BLOOD ORDERABLES Fi nal Result Performing Organization Address City/[facility]/ZIP Co de Phone Number [facility] [address] [facility]. [place] [address] * (ABNORMAL) CBC with auto differential (12/05/2024) SCRIBED WBC 6.9 3.8 - 10.8 K/cumm [facility] SCRIBED Hemoglobin 11.6(A) 13.2 - 17.1 g/dL [facility] Hematocrit 36.1(A) 38.5 - 50.0 % [facility] Platelets 157 140 - 400 K/cumm [facility] RBC 3.66(A) 4.20 - 5.80 M/cumm [facility] Eosinophils Abs 545.0(A) 15.0 - 500.0 K/cumm [facility] Blood 12/05/2024 Suresh Verma MD LAB BLOOD ORDERABLES Fin al Result Performing Organization Address [facility] Co de Phone Number [facility] * [...] 10 - 35 Units/L [facility] SCR[facility] eGFR 65 >60 [facility] A/G Ratio 1.5 1.0 - 2.5 [facility] Blood 12/05/2024 Result [facility] Suresh Verma MD LAB BLOOD ORDERABLES Fin al Result [facility] * (ABNORMAL) Protime-INR (11/27/2024) INR 1.80(A) 0.90 - 1.10 Blood Result [facility] Historical Provider LAB BLOOD ORDERABLES Maia l Result * SCAN - LABS (11/23/2024 12:00 AM CDT) Provider Scanning Edited Result - Final * (ABNORMAL) Protime-INR (11/23/2024) SCRIBED PT 18.4(A) 9.0 - 11.5 sec [facility] S[facility] INR 1.8 0.9 - 4.0 sec [facility] Blood 11/23/2024 us Suresh Verma MD LAB BLOOD ORDERABLES Fin al Result Performing Organization Address [facility] de Phone Number [facility] * (ABNORMAL) CBC [...] ORDERABLES Fin al Result Performing Organization Address [facility] de Phone Number [facility] * (ABNORMAL) Protime-INR (11/20/2024 11:35 AM CDT) SCRIBED PT 19.8(A) 9.0 - 11.5 sec [facility] SCRIBED INR 1.9(A) 2.0 - 3.0 sec [facility] Blood 11/20/2024 11:3 5 AM CDT Suresh Verma MD LAB BLOOD ORDERABLES Fin al Result Performing Organization Address [facility] de Phone Number [facility] * (ABNORMAL) [...] 10 - 35 Units/L [facility] SCRIBED eGFR 65 >=60 [facility] SCRIBED eGFR 65 >=60 [facility] Globulin 2.3 1.0 - 2.5 g/dL (calc) [facility] ALB/GLOB RATIO CALC 1.7 1.0 - 2.5 [facility] Blood 11/20/2024 11:3 5 AM CDT Suresh Verma MD LAB BLOOD ORDERABLES Fin al Result [facility] * SCAN - LABS (11/20/2024 12:00 AM CDT) Provider Scanning Final Result * (ABNORMAL) Protime-INR (11/20/2024) INR 1.90(A) 0.90 - 1.10 Blood Crys Avila MD LAB BLOOD ORDERABLES Maia l Result * (ABNORMAL) Hemoglobin A1c (08/23/2024 4:33 PM CDT) Hgb A1C 7.1(H) 4.0 - 5.6 % Estimated Average Glucose 157 mg/dL [facility] Comment: The ADA recommends reporting an [...] LAB BLOOD ORDERABL ES Final Result [facility] Department [place] [address] * Flexible Sigmoidoscopy (05/29/2024 9:01 AM PARTS CATALOGUER) Anatomical Region Laterality Modality Other Narrative Procedure Note Robles Murphy MD - 05/29/2024 9:01 AM CST [facility] Patient Name: Cindy Severino Procedure Date: 05/29/2024 9:01 AM Date of : 1950 Admit Type: Inpatient Age: 73 Gender: Male Attending MD: Marquise Latham Room: [facility] END[facility] Note Status: Finalized Procedure: Flexible Sigmoidoscopy Indications: Rectal hemorrhage, Abnormal CT of the GI tract Referring MD: Suresh Verma M.D. Providers: Robles Murphy M.D., Royal Burgos M.D. Medicines: Monitored Anesthesia Care Complications: No immediate complications. Estimated Blood Loss: Estimated blood loss was minimal. Procedure: The benefits, risks, and alternatives to theprocedure and sedation were discussed and informed consentwas obtained. The [id number] endoscope was introduced through the anus [...] * (ABNORMAL) Lipid panel (05/26/2024 5:30 PM PARTS CATALOGUER) Cholesterol 180 30 - 199 mg/dL Comment: [...] revised on 2018. Triglycerides 161(H) <=149 mg/dL [facility] Comment: Interpretive Data Ages < or [...] revised on 2018. HDL 31(L) >=40 mg/dL [facility] Comment: Interpretive Data Ages < or [...] 2018. LDL, calculated 120 <=129 mg/dL [facility] Comment: Interpretive Data Ages < or [...] on 2024. Non-HDL Cholesterol 149 mg/dL [facility] Comment: Interpretive Data Ages < or [...] revised on 2018. Chol/HDL ratio 6 [facility] Blood 05/26/2024 5:30 PM PARTS CATALOGUER 05/26/2024 5:47 PM PARTS CATALOGUER Narrative [facility] - 05/27/2024 1:24 AM PARTS CATALOGUER This lipid panel was automatically ordered due to a significant change in Troponin. The dietary status of the patient at the collection time should be correlated with the lipid results. us Abel Mak MD LAB BLOOD ORDERABLES Maia l Result Performing Organization Address [facility] Co de Phone Number [facility] [place] [address] * Hepatitis C (HCV) RNA PCR, quantitative Blood (04/17/2024 6:26 PM PARTS CATALOGUER) [facility] HCV RNA result Not Detected [facility] Comment: The quantifiable range of this assay is 15 IU/mL to 100,000,000 IU/mL (1.18 log IU/mL to 8.00 log IU/mL). Testing was performed by the ILEANA 6800 HCV Test ([employer] Testing performed at [facility] Current Interpretive Data was last revised on 2021 Blood 04/17/2024 6:26 PM PARTS CATALOGUER 04/17/2024 6:46 PM PARTS CATALOGUER Olinda Harrell MD LAB MICROBIOLOGY - [facility] ORDERABLES Final Result Performing Organization Address [facility] Co de Phone Number [facility] Department [place] [address] [facility] * COLONOSCOPY REPORT (10/16/2013) Anatomical Region [...] VRE 08/24/2024 08/24/2024 C. difficile suspected 02/18/2025 5 Insurance [employer] [facility] MEDICARE Address: [facility] [id number] [place] [address] MEDICARE [facility] MEDICARE MEDICARE [facility] AETNA MEDICARE MEDICARE [facility] [employer] MEDICARE Advance Directives For more information, please contact: [phone] Documents on File Type Date Recorded Patient Entrepreneurship Program Director Expl anation ADVANCE DIRECTIVE 12/07/2012 12:00 AM EVIE LAMBERT WILL ADVANCE DIRECTIVE 12/07/2012 12:00 AM JIMENA R OF POWER REGULATOR FINANCIAL/MEDICAL * Full Code (Latest Code Status [...] 3:02 PM 04/02/2023 5:36 PM Care Teams Wallpaper Consultant Relationship Specialty Start Date End Date Tika Araujo MD PCP - General Nurse Practitioner 03/27/20 Americo Mcneil MD [id number] [place] [address] PCP - Home Infusion Attending Infectious Diseases 10/15/24 Suresh Verma MD Financial Compliance Examiner Transplant 09/16/18 Pao Allen, RN VAD Coordinator Transplant 03/20/19 Emmy Alicea Primary Grounds Maintenance Supervisor Transplant 08/14/24 Amanda Sanchez, [facility] Pharmacist Pharmacy 01/26/25
--- OUTSIDE RECORDS SUMMARY | 2025-02-19 14:05 | XMS_ITS | Clinical Summary ---
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 Psoriatic [...] AM CDT Pulse 64 04/11/2018 12:01 AM AGRICULTURAL CHEMICALS INSPECTOR Temperature - - Respiratory Rate - - Oxygen Saturation - - Inhaled Oxygen Concentration - - Weight 112 kg (246 lb) 08/15/2019 11:12 AM CDT Height 177.8 cm (5' 10) 04/11/2018 12:01 AM AGRICULTURAL CHEMICALS INSPECTOR Body Mass Index 35.3 04/11/2018 12:01 AM AGRICULTURAL CHEMICALS INSPECTOR Plan of Treatment Health Maintenance Due Date Last Done Comments Pneumococcal PPSV23/PCV13 65 + Years / Low and Medium Risk (2 of 4 - PCV) 03/16/2008 03/16/2007 Influenza Vaccine (#1) 2025 8, 04/05/2016, 03/30/2016, Additional history exists Insurance [employer] Care Teams Atomic Physics Professor Relationship Specialty Start Date End Date Collin John MD PCP - General Endocrinology 08/15/19
--- OUTSIDE RECORDS SUMMARY | 2025-02-19 14:05 | XMS_ITS ---
Author Organization [facility] Virtual Care Address [facility] [place] [address] Phone Care Team Providers Care Validation Analyst Name Role Phone Suresh Verma MD Unavailable [phone] Pao Allen RN Unavailable [phone] Tika Araujo MD Primary Care Provider [phone] Emmy Alicea Unavailable Unavailable Americo Mcneil MD Unavailable [phone] Amanda Sanchez [facility] Unavailable Unavai lable Active Problems Patient Care Coordination No te [...] bid Assessment & Plan (05/27/2024 2:51 AM PHOTOGRAPHER ASSISTANT): -Home regimen: Entresto, coreg and imdur. -hold these iso orthostasis; re-introduce as tolerated Orthostasis 05/27/2024 Assessment & Plan (05/27/2024 5:39 AM PHOTOGRAPHER ASSISTANT): Presented with orthostatic symptoms while at home [...] 05/27/2024 Assessment & Plan (06/05/2024 11:44 AM PHOTOGRAPHER ASSISTANT): Admitted with BRBPR and near syncope, Hgb [...] sigmoidoscopy. Assessment & Plan (06/04/2024 11:42 AM PHOTOGRAPHER ASSISTANT): Admitted with BRBPR and near syncope, Hgb [...] sigmoidoscopy. Assessment & Plan (06/03/2024 8:04 AM PHOTOGRAPHER ASSISTANT): Admitted with BRBPR and near syncope, Hgb [...] sigmoidoscopy. Assessment & Plan (06/01/2024 11:39 AM PHOTOGRAPHER ASSISTANT): Admitted with BRBPR and near syncope, Hgb [...] sigmoidoscopy. Assessment & Plan (05/31/2024 9:25 AM PHOTOGRAPHER ASSISTANT): Admitted with BRBPR and near syncope, Hgb [...] CBCs Assessment & Plan (05/27/2024 12:05 PM PHOTOGRAPHER ASSISTANT): C/O BRBPR admitted with near syncope, admit Hgb 11.6, INR 2.4 -serial CBC -BID PPI -guaiac stools -hold ASA and warfarin pending Hgb trend -consider GI consult when INR down Assessment & Plan (05/27/2024 5:33 AM PHOTOGRAPHER ASSISTANT): After admission; overnight patient had episode of [...] inpatient Assessment & Plan (06/05/2024 11:44 AM PHOTOGRAPHER ASSISTANT): Home regimen: Lantus 30units nightly and Lispro SSI -HgbA1c 6.8 -BG currently controlled -Continue dose reduced Lantus 26 units nightly, Lispro 6 units TID with meals + SSI -Carb consistent diet -Accuchecks Assessment & Plan (06/04/2024 11:41 AM PHOTOGRAPHER ASSISTANT): Home regimen: Lantus 30units nightly and Lispro SSI -HgbA1c 6.8 -BG currently controlled -Continue dose reduced Lantus 26 units nightly, Lispro 6 units TID with meals + SSI -Carb consistent diet -Accuchecks Assessment & Plan (06/03/2024 8:03 AM PHOTOGRAPHER ASSISTANT): Home regimen: Lantus 30units nightly and Lispro SSI -HgbA1c 6.8 -BG currently controlled -Continue dose reduced Lantus 26 units nightly, Lispro 6 units TID with meals + SSI -Carb consistent diet -Accuchecks Assessment & Plan (06/01/2024 11:40 AM PHOTOGRAPHER ASSISTANT): Home regimen: Lantus 30units nightly and Lispro SSI -HgbA1c 6.8 -BG currently controlled -Continue dose reduced Lantus 26 units nightly, Lispro 6 units TID with meals + SSI -Carb consistent diet -Accuchecks Assessment & Plan (05/31/2024 9:30 AM PHOTOGRAPHER ASSISTANT): Home regimen: Lantus 30units nightly and Lispro SSI -HgbA1c 6.8 -BG currently controlled -Continue dose reduced Lantus 26 units nightly, Lispro 6 units TID with meals + SSI -Carb consistent diet -Accuchecks Assessment & Plan (05/27/2024 9:58 AM PHOTOGRAPHER ASSISTANT): Home regimen includes lantus 30 IU nightly and lispro SSI HgbA1c 6.8 -dose reduce lantus, add meal time lispro insulin Hypomagnesemia 05/27/2024 Assessment & Plan (06/03/2024 8:04 AM PHOTOGRAPHER ASSISTANT): S/p IV repletion this admission, continue to check and treat as needed Assessment & Plan (05/27/2024 12:04 PM PHOTOGRAPHER ASSISTANT): Mg 1.3 -replete with PO and IV -recheck tomorrow History of left ventricular assist device (LVAD) 05/26/2024 Assessment & Plan (06/05/2024 11:44 AM PHOTOGRAPHER ASSISTANT): ICM with HFrEF s/p FRONT DESK MANAGER-D 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) admitted with [...] admission and GI bleeding - resumed entresto 1/ -Accurate I&O, monitor on telemetry, daily weights Assessment & Plan (06/04/2024 11:42 AM PHOTOGRAPHER ASSISTANT): ICM with HFrEF s/p FRONT DESK MANAGER-D 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) admitted with [...] weights Assessment & Plan (06/03/2024 8:04 AM PHOTOGRAPHER ASSISTANT): ICM with HFrEF s/p FRONT DESK MANAGER-D 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) admitted with [...] weights Assessment & Plan (06/01/2024 11:30 AM PHOTOGRAPHER ASSISTANT): ICM with HFrEF s/p FRONT DESK MANAGER-D 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) admitted with [...] weights Assessment & Plan (05/31/2024 9:45 AM PHOTOGRAPHER ASSISTANT): ICM with HFrEF s/p FRONT DESK MANAGER-D 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 Assessment & Plan (04/18/2024 1:51 PM PHOTOGRAPHER ASSISTANT): RUQ/ Right flank pain associated with nausea [...] control. Assessment & Plan (04/18/2024 1:38 AM PHOTOGRAPHER ASSISTANT): RUQ/ Right flank pain associated with nausea [...] 04/17/2024 Assessment & Plan (04/19/2024 12:38 PM PHOTOGRAPHER ASSISTANT): - have been progressively increasing lately - [...] desensitization. Assessment & Plan (04/18/2024 1:40 PM PHOTOGRAPHER ASSISTANT): - have been progressively increasing lately - [...] recs. 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 -CT [address] shows unchanged appearance with no new collection or abscess -Denies driveline pain or drainage -No active concerns with drive line -Continue chronic suppression antibiotics: Levofloxacin 750 mg PO Q 48 hrs; dalbavancin 1,500mg IV Q 2 weeks (last dose was on 05/31) Assessment & Plan (06/03/2024 8:04 AM PHOTOGRAPHER ASSISTANT): 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 -CT [address] line shows unchanged appearance with no new collection or abscess -Denies driveline pain or drainage -No active concerns with drive line -Continue chronic suppression antibiotics: Levofloxacin 750 mg PO Q 48 hrs; dalbavancin 1,500mg IV Q 2 weeks (last dose was on 05/31) Assessment & Plan (06/01/2024 11:40 AM PHOTOGRAPHER ASSISTANT): 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 -CT [address] line shows unchanged appearance with no new collection or abscess -Denies driveline pain or drainage -No active concerns with drive line -Continue chronic suppression antibiotics: Levofloxacin 750 mg PO Q 48 hrs; dalbavancin 1,500mg IV Q 2 weeks (last dose was on 05/31) Assessment & Plan (05/31/2024 9:45 AM PHOTOGRAPHER ASSISTANT): 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 [...] today Assessment & Plan (05/27/2024 12:14 PM PHOTOGRAPHER ASSISTANT): 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 Assessment & Plan (04/01/2023 12:48 [...] 08/28/2021 Assessment & Plan (05/27/2024 2:46 AM PHOTOGRAPHER ASSISTANT): Improving from prior admission when minocycline switched [...] CPAP Assessment & Plan (06/05/2024 11:46 AM PHOTOGRAPHER ASSISTANT): -Nightly CPAP with home unit Assessment & Plan (06/04/2024 11:43 AM PHOTOGRAPHER ASSISTANT): -Nightly CPAP with home unit Assessment & Plan (06/03/2024 8:05 AM PHOTOGRAPHER ASSISTANT): Nightly CPAP with home unit Assessment & Plan (06/01/2024 11:40 AM PHOTOGRAPHER ASSISTANT): Nightly CPAP with home unit Assessment & Plan (05/29/2024 11:33 AM PHOTOGRAPHER ASSISTANT): Nightly CPAP with home unit Assessment & Plan (05/27/2024 9:50 AM PHOTOGRAPHER ASSISTANT): Nightly CPAP with home unit Assessment & Plan (05/27/2024 1:34 AM PHOTOGRAPHER ASSISTANT): - continue CPAP Assessment & Plan (04/19/2024 12:49 PM PHOTOGRAPHER ASSISTANT): Continue with CPAP Assessment & Plan (04/18/2024 1:45 PM PHOTOGRAPHER ASSISTANT): Continue with CPAP Assessment & Plan (04/18/2024 2:03 AM PHOTOGRAPHER ASSISTANT): CW CPAP Assessment & Plan (04/02/2023 8:42 [...] 10/22/2020 Assessment & Plan (06/05/2024 11:46 AM PHOTOGRAPHER ASSISTANT): -BMI 34, encourage weight loss Assessment & Plan (06/03/2024 8:05 AM PHOTOGRAPHER ASSISTANT): BMI 34, encouraged weight loss Assessment & Plan (05/27/2024 7:50 AM PHOTOGRAPHER ASSISTANT): BMI 34, encouraged weight loss Assessment & [...] 06/14/2018 Assessment & Plan (06/05/2024 11:42 AM PHOTOGRAPHER ASSISTANT): Pt c/o chest pain x 3 days relieved with SL nitro. -hx CABG and PCI in past -slightly elevated troponin, continue to trend -EKG unremarkable -increase imdur to 60mg daily -continue coreg, hold ASA 2/2 GIB, previously discontinued statin 2/2 elevated LFT -denies CP since admit Assessment & Plan (06/04/2024 11:36 AM PHOTOGRAPHER ASSISTANT): Pt c/o chest pain x 3 days relieved with SL nitro. -hx CABG and PCI in past -slightly elevated troponin, continue to trend -EKG unremarkable -increase imdur to 60mg daily -continue coreg, hold ASA 2/2 GIB, previously discontinued statin 2/2 elevated LFT -denies CP since admit Assessment & Plan (06/03/2024 8:00 AM PHOTOGRAPHER ASSISTANT): Pt c/o chest pain x 3 days relieved with SL nitro. -hx CABG and PCI in past -slightly elevated troponin, continue to trend -EKG unremarkable -increase imdur to 60mg daily -continue coreg, hold ASA 2/2 GIB, previously discontinued statin 2/2 elevated LFT -denies CP since admit Assessment & Plan (05/27/2024 12:21 PM PHOTOGRAPHER ASSISTANT): Pt c/o chest pain x 3 days [...] diuretics Assessment & Plan (08/02/2019 9:43 AM PHOTOGRAPHER ASSISTANT): -chronic systolic end stage heart failure -exam [...] -tele Assessment & Plan (08/01/2019 12:24 PM PHOTOGRAPHER ASSISTANT): -chronic systolic end stage heart failure -exam appears euvolemic and LVAD appears to be functioning appropriately -suspect that presenting CP 2/2 poorly controlled BP -continue asa/losartan and coreg/nitrate doses increased -add home torsemide for improved BP control -2D echo pending -continue low sodium diet -tele Assessment & Plan (07/31/2019 4:15 PM PHOTOGRAPHER ASSISTANT): Appears euvolemic on exam Admitted with elevated [...] therapy on April 12, 2015 for underlying [place] [employer] class IV heart failure Assessment & Plan (08/31/2024 8:44 AM CDT): ICM with HFrEF S/P FRONT DESK MANAGER-D and DT-HM3 (03/2015) admitted with BRBPR. 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 Hemodynamically stable, appears euvolemic and denies VAD alarms. INR 2.24 on admission. 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 Hemodynamically stable, appears euvolemic and denies VAD alarms. INR 2.24 on admission. -hold warfarin for GIB -cont entresto, coreg, imdur -cont suppressive abx for hx driveline infection -tele monitoring Assessment & Plan (08/24/2024 10:44 AM CDT): ICM with HFrEF S/P FRONT DESK MANAGER-D and DT-HM3 (03/2015) admitted with BRBPR. [...] 2:53 AM CDT): ICM with HFrEF S/P FRONT DESK MANAGER-D and DT-HM3 (03/2015) admitted with BRBPR. Hemodynamically stable, appears euvolemic and denies VAD alarms. INR 2.24 on admission. 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 -tele monitoring Assessment & Plan (04/19/2024 12:46 PM PHOTOGRAPHER ASSISTANT): ICM with HFrEF S/P FRONT DESK MANAGER-D and DT-HM3 (03/2015) Hx of recurrent [...] diet Assessment & Plan (04/18/2024 1:45 PM PHOTOGRAPHER ASSISTANT): ICM with HFrEF S/P FRONT DESK MANAGER-D and DT-HM3 (03/2015) Hx of recurrent [...] diet Assessment & Plan (04/18/2024 3:54 AM PHOTOGRAPHER ASSISTANT): ICM with HFrEF S/P FRONT DESK MANAGER-D and DT-HM3 (03/2015) Hx of recurrent [...] BP not improved with IVF will need INTELLIGENCE CONSULTANT -strict I/Os, daily standing weights -tele Assessment [...] Assessment & Plan (09/02/2021 12:01 PM CDT): [facility] March 2015 -LVAD functioning appropriately, no alarms -acute on chronic systolic HF with VENU and elevated LFTs -treated with IV lasix with improvement -transitioned back to home torsemide -INR 1.8, will increase warfarin to 6mg daily except Sun/Mon 5mg (home regimen) -continue home carvedilol, hydralazine, isordil, ASA, atorvastatin -I&Os, daily weights, telemetry Assessment & Plan (09/01/2021 9:21 AM CDT): [facility] March 2015 -LVAD functioning appropriately, no alarms -acute on chronic systolic HF with VENU and elevated LFTs -treated with IV lasix with improvement -transition back to home torsemide -INR down to 1.7; will give extra dose warfarin this morning -continue warfarin -continue home carvedilol, hydralazine, isordil, ASA, atorvastatin -I&Os, daily weights, telemetry Assessment & Plan (08/31/2021 3:38 PM CDT): [facility] March 2015 -LVAD functioning appropriately, no [...] Assessment & Plan (08/28/2021 1:53 PM CDT): [facility] March 2015 -LVAD functioning appropriately, no alarms -appears near euvolemic on exam -INR supratherapeutic, hold warfarin tonight -continue home carvedilol, hydralazine, isordil, ASA, atorvastatin -I&Os, daily weights, telemetry Assessment & Plan (08/27/2021 11:55 AM CDT): [facility] March 2015 LVAD functioning appropriately, no alarms -appears near euvolemic on exam -resume home torsemide 20mg daily -INR therapeutic at 2.8 (goal 2-3) -continue home warfarin regimen: 4mg SMWF, 5mg TTS -continue home carvedilol, hydralazine, isordil -continue home ASA 325mg daily, atorvastatin -I&Os, daily weights, telemetry -complication management as above Assessment & Plan (08/26/2021 11:32 AM CDT): [facility] March 2015 LVAD functioning appropriately, no alarms -appears euvolemic on exam -hold home diuretics for now (torsemide 20mg daily) -INR therapeutic at 2.5 (goal 2-3) -continue home warfarin regimen: 4mg SMWF, 5mg TTS -continue home carvedilol, hydralazine, isordil -continue home ASA 325mg daily, atorvastatin -I&Os, daily weights, telemetry -complication management as above Assessment & Plan (08/25/2021 10:29 AM CDT): [facility] March 2015 LVAD functioning appropriately, no [...] 2-3) Increase Warfarin to 7mg Monitor on budget director I/Os, daily weights Assessment & Plan (10/23/2020 [...] 325 Assessment & Plan (07/31/2019 4:13 PM PHOTOGRAPHER ASSISTANT): Patient was implanted in March 2015 as [...] INR checks. Cardiac resynchronization th erapy defibrillator (FRONT DESK MANAGER-D) in place 12/30/2017 Overview (12/21/2021): Reached EoL in 2018 - elected NOT to generator change VT (ventricular tachycardia) ([facility]) 8 Overview (12/21/2021): Occurring before LVAD implantation - none since FRONT DESK MANAGER-D device (Metronic-- implanted prior to lvad. Pt is not PPM dependent and decision made to not proceed with generator change in December 2017) Assessment & Plan (09/11/2021 10:26 AM CDT): -NSVT on telemetry -Monitor and replete electrolytes -telemetry Assessment & Plan (09/10/2021 9:31 AM CDT): nsvt noted on budget director for increase in arrythmia Keep potassium above 4 and magnesium around 2 CTM Assessment & Plan (08/02/2019 9:55 AM PHOTOGRAPHER ASSISTANT): -FRONT DESK MANAGER-D device (Metronic-- implanted prior to lvad. Pt is not PPM dependent and decision made to not proceed with generator change in December 2017) -continue tele Assessment & Plan (08/01/2019 12:21 PM PHOTOGRAPHER ASSISTANT): -FRONT DESK MANAGER-D device (Metronic-- implanted prior to lvad. Pt is not PPM dependent and decision made to not proceed with generator change in December 2017) -continue tele Assessment & Plan (07/31/2019 4:21 PM PHOTOGRAPHER ASSISTANT): patient had FRONT DESK MANAGER-D device metronic implanted prior to lvad Is not pacemaker depenent Saw Dr. ortega from -EP clinic 12/2017 and discussion was not to proceed with generator change and patient currently has lvad And chances of arresting from life threating arrhythmia with lvad was low USP current use of anticoagulant therapy 0 06/04/2015 [...] miralax Assessment & Plan (06/05/2024 11:43 AM PHOTOGRAPHER ASSISTANT): -CT scan has increase stool burden with [...] today Assessment & Plan (06/04/2024 11:40 AM PHOTOGRAPHER ASSISTANT): -CT scan has increase stool burden with [...] today Assessment & Plan (06/03/2024 9:55 AM PHOTOGRAPHER ASSISTANT): -CT scan has increase stool burden with [...] movements. Assessment & Plan (06/01/2024 11:39 AM PHOTOGRAPHER ASSISTANT): -CT scan has increase stool burden with stool ball in sigmoid colon -S/p enema for preparation for flex sigmoidoscopy performed on 05/29 -Patient has had several BMs since but none yet today -Continue Miralax BID, senna-docusate BID and dulcolax suppository PRN -Add lactulose today Assessment & Plan (05/31/2024 9:45 AM PHOTOGRAPHER ASSISTANT): -CT scan has increase stool burden with stool ball in sigmoid colon -S/p enema for preparation for flex sigmoidoscopy performed on 05/29 -Patient has had several BMs including this morning -Continue Miralax, senna-docusate and dulcolax suppository PRN Assessment & Plan (05/27/2024 2:45 AM PHOTOGRAPHER ASSISTANT): - had large BM in ED - [...] baseline Assessment & Plan (06/05/2024 11:46 AM PHOTOGRAPHER ASSISTANT): -Creatinine at baseline -Avoid nephrotoxins, renally dose meds as appropriate -Avoid hypotension -BMP daily Assessment & Plan (06/04/2024 11:44 AM PHOTOGRAPHER ASSISTANT): -Creatinine at baseline -Avoid nephrotoxins, renally dose meds as appropriate -Avoid hypotension -BMP daily Assessment & Plan (06/03/2024 8:05 AM PHOTOGRAPHER ASSISTANT): Creatinine at baseline Assessment & Plan (06/01/2024 11:40 AM PHOTOGRAPHER ASSISTANT): Creatinine at baseline Assessment & Plan (05/29/2024 11:32 AM PHOTOGRAPHER ASSISTANT): Creatinine at baseline Assessment & Plan (05/27/2024 7:49 AM PHOTOGRAPHER ASSISTANT): Creatinine at baseline Assessment & Plan (04/19/2024 12:49 PM PHOTOGRAPHER ASSISTANT): Cr at baseline CTM. Assessment & Plan (04/18/2024 1:23 PM PHOTOGRAPHER ASSISTANT): Cr at baseline CTM. Assessment & Plan (04/18/2024 1:46 AM PHOTOGRAPHER ASSISTANT): Cr at baseline CTM. Assessment & Plan [...] follow Assessment & Plan (08/02/2019 9:51 AM PHOTOGRAPHER ASSISTANT): Stage 3 CKD -Cr remains stable and in baseline range Assessment & Plan (08/01/2019 12:25 PM PHOTOGRAPHER ASSISTANT): Stage 3 CKD -Cr remains stable and in baseline range Assessment & Plan (07/31/2019 4:15 PM PHOTOGRAPHER ASSISTANT): History ckd stage 3 . Baseline creatine [...] PPI Assessment & Plan (05/27/2024 5:42 AM PHOTOGRAPHER ASSISTANT): - IV ppi Assessment & Plan (04/19/2024 12:39 PM PHOTOGRAPHER ASSISTANT): Continue with pantoprazole. Assessment & Plan (04/18/2024 1:41 PM PHOTOGRAPHER ASSISTANT): Continue with pantoprazole. Assessment & Plan (04/18/2024 1:39 AM PHOTOGRAPHER ASSISTANT): CW pantoprazole. Assessment & Plan (03/20/2022 1:03 [...] PPI Assessment & Plan (08/02/2019 9:45 AM PHOTOGRAPHER ASSISTANT): -+ dyspepsia -continue PPI Assessment & Plan (08/01/2019 10:33 AM PHOTOGRAPHER ASSISTANT): -+ dyspepsia -continue PPI Assessment & Plan (07/31/2019 4:00 PM PHOTOGRAPHER ASSISTANT): Increase home dose PPI to bid to [...] 8:23 AM CDT): -H/H stable from prior [facility] reading and pt denies bleeding -Home iron supplementation held for now -continue to follow Assessment & Plan (07/31/2019 4:09 PM PHOTOGRAPHER ASSISTANT): History of anemia - currently blood counts on admission look good Will continue to follow . Hyperlipidemia 01/07/2014 Assessment & Plan (04/19/2024 12:39 PM PHOTOGRAPHER ASSISTANT): Holding statin for elevated liver enzymes. Assessment & Plan (04/18/2024 1:16 PM PHOTOGRAPHER ASSISTANT): Holding statin for elevated liver enzymes. Assessment & Plan (04/18/2024 1:42 AM PHOTOGRAPHER ASSISTANT): Holding statin for elevated liver enzymes. 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 -Monitor BP and adjust accordingly. -Orthostatic BP as patient mentioned having occasional lightheadedness while standing. -encourage adequate rehydration, safety precautions while changing positions, compression stockings. May consider med readjustment if symptoms persist Assessment & Plan (04/18/2024 1:42 PM PHOTOGRAPHER ASSISTANT): -Continue with Entresto, Hydralazine, coreg and imdur. -Monitor BP and adjust accordingly. -Orthostatic BP as patient mentioned having occasional lightheadedness while standing. Assessment & Plan (04/18/2024 3:57 AM PHOTOGRAPHER ASSISTANT): CW Entresto, Hydralazine, coreg and imdur. Monitor [...] needed Assessment & Plan (08/02/2019 9:41 AM PHOTOGRAPHER ASSISTANT): -pt presented with poorly controlled hypertension -systolic BP remains elevated despite increased nitrates and coreg doses -consider addition of low dose norvasc to regimen -continue losartan and torsemide to regimen Assessment & Plan (08/01/2019 12:23 PM PHOTOGRAPHER ASSISTANT): -pt presented with poorly controlled hypertension -nitrates and coreg increased--continue to follow and titrate as needed -continue losartan and add torsemide to regimen Assessment & Plan (07/31/2019 3:57 PM PHOTOGRAPHER ASSISTANT): Elevated blood pressures at home and recorded [...] information found. Other Current Plans [facility] IM ONLY & IV MAINTENANCE THERAPY PLAN* Plan Start Date: 08/31/2022 Plan Provider:Americo Mcneil MD Linked Problems LVAD (left ventricular isacc t device) present ([facility]) Treatment Medications No medications scheduled. Past Treatment and Therapy Plans Lifetime Dose Tracking * Chemical Lifetime Dose Automatic Entry Manual Entr y Fluoro Time 2.1 minutes 2.1 minutes 0 minutes Air kerma at the reference point (Ka,r) 21 mGy 2 1 mGy 0 mGy DLP 19,000 mGycm [...] 06/02/2024 Assessment & Plan (05/27/2024 2:07 AM PHOTOGRAPHER ASSISTANT): - flomax; low threshold to hold if recurrent hypotension Assessment & Plan (04/19/2024 12:39 PM PHOTOGRAPHER ASSISTANT): CW tamsulosin. Assessment & Plan (04/18/2024 1:13 PM PHOTOGRAPHER ASSISTANT): CW tamsulosin. Assessment & Plan (04/18/2024 1:39 AM PHOTOGRAPHER ASSISTANT): CW tamsulosin. Assessment & Plan (04/02/2023 8:42 [...] SSI Assessment & Plan (05/27/2024 2:51 AM PHOTOGRAPHER ASSISTANT): Home regimen includes lantus 30 IU nightly and lispro SSI - continue with basal (dose reduced to 17 units during prior admission) and SSI only (he states he takes 1-6 of lispro with meals) - add bolus TID if needed Assessment & Plan (04/19/2024 12:50 PM PHOTOGRAPHER ASSISTANT): Home regimen includes lantus 30 IU nightly and lispro (6-20 IU) (per patient he takes 18 international units with most of the meals) - continue with basal bolus (dose reduced to 17 units) and prandial (dose reduced to 6 units with meals) regimen in additional to SSI - Monitor blood sugar and adjust insuline as needed. Assessment & Plan (04/18/2024 1:55 PM PHOTOGRAPHER ASSISTANT): Home regimen includes lantus 30 IU nightly and lispro (6-20 IU) (per patient he takes 18 international units with most of the meals) - continue with basal bolus (dose reduced to 17 units) and prandial (dose reduced to 6 units with meals) regimen in additional to SSI - Monitor blood sugar and adjust insuline as needed. Assessment & Plan (04/18/2024 1:42 AM PHOTOGRAPHER ASSISTANT): Home regimen includes lantus 30 IU nightly [...] SSI Assessment & Plan (08/02/2019 9:45 AM PHOTOGRAPHER ASSISTANT): -HgA1C well controlled -continue lantus and SSI Assessment & Plan (08/01/2019 10:36 AM PHOTOGRAPHER ASSISTANT): -HgA1C well controlled -continue lantus and SSI Assessment & Plan (07/31/2019 3:54 PM PHOTOGRAPHER ASSISTANT): Recheck hemglobin a1c - last one recored in september 2016- 7.5 Patient states hemglobin a1c controlled as outpatient Continue lantus 30 units at [facility] and SSI CAD in squ[place] artery 01/07/2014 025 Overview (02/23/2021): Coronary artery disease with history of coronary artery bypass graft with a MARIN to the LAD and free radial graft to obtuse marginal with multiple subsequent PCI to the right coronary artery. Assessment & Plan (05/27/2024 5:29 AM PHOTOGRAPHER ASSISTANT): SP CABG (MARIN-LAD, free radial graft-OM ) S/p PCI to RCA - hold asa, hold coreg - statins held previously due to prior abnormal LFTs - continue trop trend to peak; currently chest pain free though he did take nitro in last 2-3 days Assessment & Plan (04/19/2024 12:39 PM PHOTOGRAPHER ASSISTANT): SP CABG -Asymptomatic. -Negative troponin. -continue with ASA and coreg. -holding statins d/t abnormal LFTs Assessment & Plan (04/18/2024 1:41 PM PHOTOGRAPHER ASSISTANT): SP CABG -Asymptomatic. -Negative troponin. -continue with ASA and coreg. Assessment & Plan (04/18/2024 1:43 AM PHOTOGRAPHER ASSISTANT): SP CABG Asymptomatic. Negative troponin. CW ASA, [...] carvedilol Assessment & Plan (07/31/2019 4:08 PM PHOTOGRAPHER ASSISTANT): Admitted with chest pain relieved in setting [...]
--- OUTSIDE RECORDS SUMMARY | 2025-02-19 14:05 | XMS_ITS | Encounter Summary ---
Author Organization [facility] Address [address] [place] [address] Phone Care Team Providers Care Zipper Setter Chainstitch Name Role Phone Suresh Verma MD Unavailable [phone] Pao Allen RN Unavailable [phone] Tika Araujo MD Primary Care Provider [phone] Emmy Alicea Unavailable Unavailable Americo Mcneil MD Unavailable [phone] Amanda Sanchez [facility] Unavailable Frandyi labandria Encounter Details Date Type Department Care Team (Late st Contact Info) Description 02/18/2025 Telephone [facility] Medicine Infectious Diseases [address] [place] [id number] Alia Espinoza Social History Tobacco Use Types Packs/Day Years Used Date Smoking Tobacco: Never Passive Smoke Exposure: Never Smokeless Tobacco: Never Alcohol Use Standard Drinks/Week Comments No 0 (1 standard drink = 0.6 oz pur e alcohol) [facility] Utilities Answer Date Recorded In the past 12 months has [employer] electric, gas, oil, or water company threatened [...] How often do you attend chur or confucianism services? More than 4 times per year [...] place to sleep or slept in a residential (including now)? Patient refused 03/23/2023 Housing Stability [...] any time in the past 12 m [facility], were you homeless or living in a residential (including now)? No 08/25/2024 Personal Safety Answer Date Recorded Have you ever been in or are you currently in a harmful physical or emotional relationship or is someone making you feel afraid or unsafe? 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 Pt reported began having 3-4 times diarrhea on Tuesday 02/13 with noted dizziness when standing and walking. Shona reported can go back out today or tomorrow am to provide stool kit for c diff testing. C diff testing ordered. Shona reported concerns of pt dehydrated with noted lower BP this am with pt encouragement to increase hydration efforts. Shona reported discussedwith pt importance of using walker when up for extra safety efforts due to pt dizziness. Pt remainsafebrile with no other noted symptoms. Called pt and pt with request to call back to discuss c diff testing and pt report. * Telephone Encounter - Alia Espinoza - 02/18/2025 10:27 AM CDT Calling on behalf of patient. Patient reported he has been having diarrhea/loose stool for the pastweek and having the feeling of dizziness all weekend. Wanting an order for C. 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 difficile suspected 02/18/2025 02/18/2025 documented as of this encounter Care Teams Zipper Setter Chainstitch Relationship Specialty Start Date End Date Tika Araujo MD PCP - General Nurse Practitioner 03/27/20 Americo Mcneil MD [address] [id number] [place] [address] PCP - Home Infusion Attending Infectious Diseases 10/15/24 Suresh Verma MD Gas Charger Transplant 09/16/18 Pao Allen, RN VAD Coordinator Transplant 03/20/19 Emmy Alicea Primary Dental Mold Maker Transplant 08/14/24 Amanda Sanchez, [facility] Pharmacist Pharmacy 01/26/25 documented as of this encounter
--- OUTSIDE RECORDS SUMMARY | 2025-02-19 14:05 | XMS_ITS | Encounter Summary ---
Author Organization [facility] Address [address] [place] [address] Phone Care Team Providers Care Rotational Moulding Operator Name Role Phone Collin John MD Primary Care Provider [phone] Prasanna Newton DO Primary Care Provider [phone] Marietta Carroll RN Unavailable Jacque Suresh Miller MD Unavailable [phone] Pao Allen RN Unavailable Tika Araujo MD Primary Care Provider [phone] Tika Araujo MD Primary Care Provider [phone] Emmy Alicea Unavailable Unavailable Americo Mcneil MD Unavailable [phone] Korey Warren [facility] Unavailable Unavail able Amanda Sanchez [facility] Unavailable Unasung domingo Encounter Details Date Type Department Care Team (Late st Contact Info) Description 03/01/2016 Orders Only [facility] IM CAR CLINCONV Provider, MD [facility] [place] [address] Social History Tobacco Use Types Packs/Day Years Used Date Smoking Tobacco: Never Alcohol Use Standard Drinks/Week Comments No 0 (1 standard drink = 0.6 oz pur e alcohol) Sex and Gender Information Value Date Recorded Sex Assigned at Not on file Legal Sex Male 12:11 AM ROLL TENDER Gender Identity Not on file Sexual Orientation Not on file documented as of this encounter Plan of Treatment Not on file documented as of this encounter Procedures Procedure Name Priority Date/Time Associated Diagnosis Comments CARDIOLOGY REPORT 03/01/2016 CARDIOLOGY REPORT 03/01/2016 documented in this encounter Results * CARDIOLOGY REPORT (03/01/2016) Anatomical Region Laterality Modality Other Narrative 03/01/2016 Ordered by an unspecified provider. Historical Provider CV CARDIAC SERVICES PROCE DURAPOLONIA Final Result * CARDIOLOGY REPORT (03/01/2016) Anatomical Region Laterality Modality Other Narrative 03/01/2016 Ordered by an unspecified provider. Historical Provider [...] documented as of this encounter Care Teams Rotational Moulding Operator Relationship Specialty Start Date End Date Collin John MD [address] [facility] [address] [place] [address] PCP - General 07/13/16 02/24/20 Prasanna Newton DO [address] [facility] [address] [place] [address] PCP - General 06/07/06 07/12/16 Tika Araujo MD PCP - General Nurse Practitioner 03/27/20 Tika Araujo MD PCP - General 02/25/20 03/26/20 Americo Mcneil MD [address] [facility] [id number] [place] [address] PCP - Home Infusion Attending Infectious Diseases 10/15/24 Marietta Carroll, SANKET Registered Nurse Carbon Lamp Cleaner 10/31/17 03/20/19 Suresh Verma MD Air Drill Operator Transplant 09/16/18 Pao Allen, RN VAD Coordinator Transplant 03/20/19 Emmy Alicea Primary Cyber Forensics Analyst Transplant 08/14/24 Korey Warren, [facility] Pharmacist Pharmacy 10/23/24 01/26/25 Amanda Sanchez, [facility] Pharmacist Pharmacy 01/26/25 documented as of this encounter
--- OUTSIDE RECORDS SUMMARY | 2025-02-19 14:05 | XMS_ITS | Encounter Summary ---
Author Organization [facility] Address [address] [place] [address] Care Team Providers Care Hosiery Mender Name Role Phone Suresh Verma MD Unavailable [phone] Pao Allen RN Unavailable [phone] Tika Araujo MD Primary Care Provider [phone] Emmy Alicea Unavailable Unavailable Americo Mcneil MD Unavailable [phone] Korey Warren [facility] Unavailable Unavail able Amanda Sanchez [facility] Unavailable Unavai lable Encounter Details Date Type Department Care Team (Late st Contact Info) Description 06/02/2021 Telephone [facility] Transplant Heart [address] [facility] [address] [phone] [place] [address] Erna Dent Social History Tobacco Use Types [...] file Legal 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 Gender Identity Not on file Sexual [...] documented as of this encounter Care Teams Hosiery Mender Relationship Specialty Start Date End Date Tika Araujo MD PCP - General Nurse Practitioner 03/27/20 Americo cMneil MD [address] [id number] [place] [address] PCP - Home Infusion Attending Infectious Diseases 10/15/24 Suresh Verma MD Volleyball Referee Transplant 09/16/18 Pao Allen, RN VAD Coordinator Transplant 03/20/19 Emmy Alicea Primary Fitter Mechanic Transplant 08/14/24 Korey Warren, [facility] Pharmacist Pharmacy 10/23/24 01/26/25 Amanda Sanchez, [facility] Pharmacist Pharmacy 01/26/25 documented as of this encounter
--- OUTSIDE RECORDS SUMMARY | 2025-02-19 14:05 | XMS_ITS | Encounter Summary ---
Author Organization [facility] Address [address] [place] [address] Phone Care Team Providers Care Software Developer Intern Name Role Phone Suresh Verma MD Unavailable [phone] Pao Allen RN Unavailable [phone] Tika Araujo MD Primary Care Provider [phone] Emmy Alicea Unavailable Unavailable Americo Mcneil MD Unavailable [phone] Amanda Sanchez [facility] Unavailable Lawanda labandria Encounter Details Date Type Department Care Team (Late st Contact Info) Description 02/19/2025 Telephone [facility] Medicine Infectious Diseases [address] [place] [phone] Shanelle Sanches, SANKET Social History Tobacco Use Types Packs/Day Years Used Date Smoking Tobacco: Never Passive Smoke Exposure: Never Smokeless Tobacco: Never Alcohol Use Standard Drinks/Week Comments No 0 (1 standard drink = 0.6 oz pur e alcohol) [facility] Utilities Answer Date Recorded In the past 12 months has [employer] electric, gas, oil, or water company threatened [...] often do you attend chur ch or zoroastrianism services? More than 4 times per year 08/25/2024 Do you belong to any clubs o r organizations such as buddhist groups, unions, fraternal or athletic groups, or [...] any time in the past 12 m [facility], were you homeless or living in a usp (including now)? No 08/25/2024 Personal Safety Answer Date Recorded Have you ever been in or are you currently in a harmful physical or emotional relationship or is someone making you feel afraid or unsafe? 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 Pt reported continuing to hydrate frequently with noted 3-4 times a day watery diarrhea. Pt reported completed kit yesterday am and has placed in the freezer. [facility] unableto pickle water pump operator sample until tomorrow. Karina reported can drop off sample to [facility] lab today. 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 difficile suspected 02/18/2025 02/18/2025 documented as of this encounter Care Teams Software Developer Intern Relationship Specialty Start Date End Date Tika Araujo MD PCP - General Nurse Practitioner 03/27/20 Americo Mcneil MD [address] [facility] [id number] [place] [address] PCP - Home Infusion Attending Infectious Diseases 10/15/24 Suresh Verma MD Planimeter Operator Transplant 09/16/18 Pao Allen, RN VAD Coordinator Transplant 03/20/19 Emmy Alicea Primary Casino Host Transplant 08/14/24 Amanda Sanchez, [facility] Pharmacist Pharmacy 01/26/25 documented as of this encounter
--- OUTSIDE RECORDS SUMMARY | 2025-02-19 14:05 | XMS_ITS | Encounter Summary ---
Author Organization [facility] Address [address] [place] [address] Phone Care Team Providers Care Relish Maker Name Role Phone Suresh Verma MD Unavailable [phone] Pao Allen RN Unavailable [phone] Tkia Araujo MD Primary Care Provider [phone] Emmy Alicea Unavailable Unavailable Americo Mcneil MD Unavailable [phone] [facility] Unavailable Unavail able Amanda Sanchez [facility] Unavailable Unasung domingo Encounter Details Date [...] declined 03/23/2023 How often do you attend faith or caodaism serv ices? 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 Pharmacist Pharmacy 10/23/24 01/26/25 Amanda Sanchez, [facility] Pharmacist Pharmacy 01/26/25 documented as of this encounter
--- OUTSIDE RECORDS SUMMARY | 2025-02-19 14:05 | XMS_ITS | Encounter Summary ---
Author Organization [facility] Address [address] [place] [address] Care Team Providers Care Production Inspector Name Role Phone Suresh Verma MD Unavailable [phone] Pao Allen RN Unavailable [phone] Tika Araujo MD Primary Care Provider [phone] Emmy Alicea Unavailable Unavailable Americo Mcneil MD Unavailable [phone] Amanda Sanchez [facility] Unavailable Unasung domingo Encounter Details Date Type Department Care Team (Late st Contact Info) Description 02/19/2025 Anticoagulation Tele phone Call [facility] Transplant Heart [address] [facility] [phone] [place] [address] Alexandrea Rueda, SANKET Social History Tobacco Use Types Packs/Day Years Used Date Smoking Tobacco: Never Passive Smoke Exposure: Never Smokeless Tobacco: Never Alcohol Use Standard Drinks/Week Comments No 0 (1 standard drink = 0.6 oz pur e alcohol) [facility] Utilities Answer Date Recorded In [...] often do you attend chur ch or nondenominational services? More than 4 times per year 08/25/2024 Do you belong to any clubs o r organizations such as episcopal groups, unions, fraternal or athletic groups, or [...] place to sleep or slept in a fpc (including now)? Patient refused 03/23/2023 Housing Stability [...] any time in the past 12 m [facility], were you homeless or living in a fpc (including now)? No 08/25/2024 Personal Safety Answer Date Recorded Have you ever been in or are you currently in a harmful physical or emotional relationship or is someone making you feel afraid or unsafe? 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 CBC, CMP, are wnl for patient; ( K 3.4-- increase potassium rich foods this) INR Date Value Ref Range Status 02/18/2025 2.20 (A) 0.90 - 1.10 Final Lactate dehydrogenase (LDH) Date Value Ref Range Status 12/06/2024 280 (H) 100 - 250 Units/L Final Per [facility]. Pt instructed to adjust coumadin dose of 4 mg Mon and 3 mg all other days and will recheck labs next week. Pts spouse verbalized understanding Spouse states nurse is coming tomorrow to collect stool sample for possible Cdiff documented in this encounter Plan of Treatment Not on file documented as of this encounter Procedures Procedure Name Priority Date/Time Associated Diagnosis Comments PROTIME-INR Routine 02/18/2025 documented in this encounter Results * (ABNORMAL) Protime-INR (02/18/2025) INR 2.20(A) 0.90 - 1.10 Blood us Historical Provider LAB BLOOD ORDERABLES Maia l Result documented in this encounter Visit Diagnoses Not on filedocumented in this encounter Discontinued Medications Medication Sig Discontinue Reason Start Date End Da te warfarin (COUMADIN) 3 mg tabletIndications:Left Ventricular Assist Device 3 mg daily, 4 mg sat/sun/mon Alternate therapy 02/05/2025 02/19/2025 warfarin (COUMADIN) 4 mg tabletIndications:Left Ventricular Assist Device 3 mg daily, 4 mg sat/sun/mon Alternate therapy 02/05/2025 02/19/2025 documented as of this encounter Additional Health Concerns Infection Onset Date Last Indicated Resolved Time 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 difficile suspected 02/18/2025 02/18/2025 documented as of this encounter Care Teams Production Inspector Relationship Specialty Start Date End Date Tika Araujo MD PCP - General Nurse Practitioner 03/27/20 Americo Mcneil MD [address] [id number] [place] [address] PCP - Home Infusion Attending Infectious Diseases 10/15/24 Suresh Verma MD Cargo Services Coordinator Transplant 09/16/18 Pao Allen, RN VAD Coordinator Transplant 03/20/19 Emmy Alicea Primary Industrial Electrician Journeyman Transplant 08/14/24 Amanda Sanchez, [facility] Pharmacist Pharmacy 01/26/25 documented as of this encounter
--- OUTSIDE RECORDS SUMMARY | 2025-02-19 14:05 | XMS_ITS | Encounter Summary ---
Author Organization [facility] Healthcare Address [address] [place] [address] Care Team Providers Care Object Oriented Developer Name Role Phone Suresh Verma MD Unavailable [phone] Pao Allen RN Unavailable [phone] Tika Araujo MD Primary Care Provider [phone] Emmy Alicea Unavailable Unavailable Americo Mcneil MD Unavailable [phone] Korey Warren [facility] Unavailable Unavail able Amanda Sanchez [facility] Unavailable Lawanda domingo Encounter Details Date Type Department Care Team (Late st Contact Info) Description 01/25/2025 Telephone [facility] Home Infusion Therapy [address] [place] [address] Amanda Sanchez, [facility] Social History Tobacco Use Types Packs/Day Years Used Date Smoking Tobacco: Never Passive Smoke Exposure: Never Smokeless Tobacco: Never Alcohol Use Standard Drinks/Week Comments No 0 (1 standard drink = 0.6 oz pur e alcohol) [facility] Utilities Answer Date Recorded In the past 12 months has [employer] electric, gas, oil, or water company threatened [...] often do you attend chur ch or pentecostal services? More than 4 times per year 08/25/2024 Do you belong to any clubs o r organizations such as yarsani groups, unions, fraternal or athletic groups, or [...] in the past 12 m [facility], were you homeless or living in a alf (including now)? No 08/25/2024 Personal Safety Answer Date Recorded Have you ever been in or are you currently in a harmful physical or emotional relationship or is someone making you feel afraid or unsafe? Denies 12/10/2024 Sex and Gender Information Value Date Recorded Sex Assigned at Not on file Legal Sex Male 12:11 AM WILL CALL ORDER CLERK Gender Identity Not on file Sexual [...] documented as of this encounter Care Teams Object Oriented Developer Relationship Specialty Start Date End Date Tika Araujo MD PCP - General Nurse Practitioner 03/27/20 Americo Mcneil MD [address] [id number] [place] [address] PCP - Home Infusion Attending Infectious Diseases 10/15/24 Suresh Verma MD Media Relations Coordinator Transplant 09/16/18 Pao Allen, RN VAD Coordinator Transplant 03/20/19 mEmy Alicea Primary Information Security Specialist Transplant 08/14/24 Korey Warren, [facility] Pharmacist Pharmacy 10/23/24 01/26/25 Amanda Sanchez, [facility] Pharmacist Pharmacy 01/26/25 documented as of this encounter
--- OUTSIDE RECORDS SUMMARY | 2025-02-19 14:06 | XMS_ITS | Encounter Summary ---
Author Organization [facility] Address [address] [place] [address] Phone Care Team Providers Care Assisted Living Assistant Name Role Phone Collin John MD Primary Care Provider [phone] Prasanna Newton DO Primary Care Provider [phone] Marietta Carroll RN Unavailable Jacque Suresh Miller MD Unavailable [phone] Pao Allen RN Unavailable [phone] Tika Araujo MD Primary Care Provider [phone] Tika Araujo MD Primary Care Provider [phone] Emmy Alicea Unavailable Unavailable Americo Mcneil MD Unavailable Korey Warren [facility] Unavailable Unavail able Amanda Sanchez [facility] Unavailable Unasung domingo Encounter Details Date Type Department Care Team (Late st Contact Info) Description 02/26/2016 Orders Only [facility] CLINCONV Provider, MD [facility] [place] [address] Social History Tobacco Use Types Packs/Day Years Used Date Smoking Tobacco: Never Alcohol Use Standard Drinks/Week Comments No 0 (1 standard drink = 0.6 oz pur e alcohol) Sex and Gender Information Value Date Recorded Sex Assigned at Not on file 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 Historical Provider CV CARDIAC SERVICES PROCE NIKKI Final Result * CARDIOLOGY REPORT (02/26/2016) Anatomical Region Laterality Modality Other Narrative 02/26/2016 Ordered by an unspecified provider. Historical Provider [...] documented as of this encounter Care Teams Assisted Living Assistant Relationship Specialty Start Date End Date Collin John MD [address] [facility] [address] [place] [address] PCP - General 07/13/16 02/24/20 Prasanna Newton DO [address] [facility] [address] [place] [address] PCP - General 06/07/06 07/12/16 Tika Araujo MD PCP - General Nurse Practitioner 03/27/20 Tika Araujo MD PCP - General 02/25/20 03/26/20 Americo Mcneil MD [address] [facility] [id number] [place] [address] PCP - Home Infusion Attending Infectious Diseases 10/15/24 Marietta Carroll, SANKET Registered Nurse Director Of Industrial Relations 10/31/17 03/20/19 Suresh Verma MD Paint Stock Clerk Transplant 09/16/18 Pao Allen, RN VAD Coordinator Transplant 03/20/19 Emmy Alicea Primary Direct Care Specialist Transplant 08/14/24 Korey Warren, [facility] Pharmacist Pharmacy 10/23/24 01/26/25 Amanda Sanchez, [facility] Pharmacist Pharmacy 01/26/25 documented as of this encounter
--- OUTSIDE RECORDS SUMMARY | 2025-02-19 14:06 | XMS_ITS | Encounter Summary ---
Author Organization [facility] Address [address] [place] [address] Phone Care Team Providers Care Scrap Sorter Name Role Phone Collin John MD Primary Care Provider [phone] Marietta Carroll RN Unavailable Jacque Suresh Miller MD Unavailable [phone] Pao Allen RN Unavailable [phone] Tika Araujo MD Primary Care Provider [phone] Tika Araujo MD Primary Care Provider [phone] Emmy Alicea Unavailable Unavailable Americo Mcneil MD Unavailable [phone] Korey Warren [facility] Unavailable Unavail able Amanda Snachez [facility] Unavailable Unavai lable Encounter Details Date Type Department Care Team (Late st Contact Info) Description 12/10/2016 Orders Only [facility] CAR CLINCONV Provider, MD Crys [facility] [place] [address] Social History Tobacco Use Types Packs/Day Years Used Date Smoking Tobacco: Never Alcohol Use Standard Drinks/Week Comments No 0 (1 standard drink = 0.6 oz pur e alcohol) Sex and Gender Information Value Date Recorded Sex Assigned at Not on file 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 Gender Identity Not on file Sexual Orientation [...] documented as of this encounter Care Teams Scrap Sorter Relationship Specialty Start Date End Date Collin John MD [address] [address] PCP - General 07/13/16 02/24/20 Tika Araujo MD PCP - General Nurse Practitioner 03/27/20 Tika Araujo MD PCP - General 02/25/20 03/26/20 Americo Mcneil MD [address] [facility] [id number] [place] [address] PCP - Home Infusion Attending Infectious Diseases 10/15/24 Marietta Carroll, SANKET Registered Nurse Tree Thinner 10/31/17 03/20/19 Suresh Verma MD Beauty Therapist Transplant 09/16/18 Pao Allen, RN VAD Coordinator Transplant 03/20/19 Emmy Alicea Primary Television Production Assistant Transplant 08/14/24 Korey Warren, [facility] Pharmacist Pharmacy 10/23/24 01/26/25 Amanda Sanchez, [facility] Pharmacist Pharmacy 01/26/25 documented as of this encounter
--- OUTSIDE RECORDS SUMMARY | 2025-02-19 14:06 | XMS_ITS | Encounter Summary ---
Author Organization [facility] Address [address] [place] [address] Phone Care Team Providers Care Cytology Manager Name Role Phone Suresh Verma MD Unavailable [phone] Pao Allen RN Unavailable [phone] Tika Araujo MD Primary Care Provider [phone] Emmy Alicea Unavailable Unavailable Americo Mcneil MD Unavailable [phone] Korey Warren [facility] Unavailable Unavail able Amanda Sanchez [facility] Unavailable Lawanda domingo Encounter Details Date Type Department Care Team (Late st Contact Info) Description 09/21/2024 Telephone [facility] Medicine Infectious Diseases [address] [place] [address] Destinee Peraza RMA Social History Tobacco Use Types Packs/Day Years Used Date Smoking Tobacco: Never Passive Smoke Exposure: Never Smokeless Tobacco: Never Alcohol Use Standard Drinks/Week Comments No 0 (1 standard drink = 0.6 oz pur e alcohol) [facility] Utilities Answer Date Recorded In the past 12 months has [employer] electric, gas, oil, or water company threatened [...] often do you attend chur ch or episcopalian services? More than 4 times per year 08/25/2024 Do you belong to any clubs o r organizations such as restoration groups, unions, fraternal or athletic groups, or [...] any time in the past 12 m [facility], were you homeless or living in a halfway (including now)? No 08/25/2024 Personal Safety Answer Date Recorded Have you ever been in or are you currently in a harmful physical or emotional relationship or is someone making you feel afraid or unsafe? 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 difficile suspected 02/18/2025 02/18/2025 documented as of this encounter Care Teams Cytology Manager Relationship Specialty Start Date End Date Tika Araujo MD PCP - General Nurse Practitioner 03/27/20 Americo Mcneil MD [address] [facility] [phone] [place] [address] PCP - Home Infusion Attending Infectious Diseases 10/15/24 Suresh Verma MD Box Stapler Transplant 09/16/18 Pao Allen, RN VAD Coordinator Transplant 03/20/19 Emmy Alicea Primary Roofing Contractor Transplant 08/14/24 Korey Warren, [facility] Pharmacist Pharmacy 10/23/24 01/26/25 Amanad Sanchez, [facility] Pharmacist Pharmacy 01/26/25 documented as of this encounter
[2025-02-19 15:28] LABS: Toxigenic C. Diff NEGATIVE (NEGATIVE)
== END 2025-02-19 13:51 | disposition home or self-care (01) ==
PROVIDERS: PCP Nurse Practitioner
DX: K52.1 Toxic gastroenteritis and colitis (principal); T36.95XA Adverse effect of unspecified systemic antibiotic, initial encounter
CPT/HCPCS: 87493

== ENCOUNTER 2025-04-23 11:58 | Outpatient (CLI) | payer MEDICARE, SELFPAY ==
--- NOTE | ~2025-04-23 | XR_ITS ---
EXAMINATION: XR chest 2V, 04/23/2025 12:03 [facility]ERT[facility]IED [facility] REC[facility] HISTORY: Cough COMPARISON: No comparisons available. Technique: 2 views obtained. Findings: COPD changes. Mild pulmonary venous congestion. No pneumothorax. Left-sided cardiac device noted. Mediastinal and hilar contours are within normal limits. Poststernotomy. Left pacemaker. Right central line in the SVC. Impression: Mild CHF Reviewed, dictated and finalized at location P. [facility]ICAL RECORDS [facility] Impression: Mild CHF
== END 2025-04-23 11:59 | disposition home or self-care (01) ==
LOC: MICIMG 12:00
PROVIDERS: PCP Nurse Practitioner; Visit Provider Nurse Practitioner
DX: I50.9 Heart failure, unspecified (principal)
CPT/HCPCS: 71046

== ENCOUNTER 2025-04-24 11:26 | Emergency (ER) | payer MEDICARE, SELFPAY ==
--- NOTE | ~2025-04-24 | XR_ITS ---
Examination: XR chest 2V Clinical History: cough, sob Comparison: 1 day prior Technique: PA and Lateral Findings: LVAD, left ICD, right tunneled central line. Cardiomegaly. Persistent right opacity. Mildly increased interstitial markings. No acute bony abnormality. IMPRESSION: 1. Persistent mild bibasilar atelectasis and/or small pleural effusion. 2. Mild interstitial pulmonary edema. Reviewed, dictated and finalized at location R. PER HAND
--- NOTE | 2025-04-24 11:29 | ECG_ITS ---
Test Date: 2025-04-24 11:35:04 Measurements Intervals [place] Rate: 66 P: 0 [place]: 0 QRS: 214 QRSD: 152 T: 154 QT: 460 QTc: 484 Interpretive Statements SIGNIFICANT ARTIFACT PRECLUDES ACCURATE RHYTHM INTERPRETATION RIGHT BUNDLE BRANCH BLOCK WITH REPOLARIZATION CHANGES; CAN NOT RULE OUT ISCHEMIA Electronically Signed On 04-24-2025 13:42:26 SCADA TECHNICIAN by Akira Aggarwal M.D.
[2025-04-24 11:30] VITALS: BP 114/97; PULSE 68; RESP 23; TEMP 36.4; O2SAT 98
--- NOTE | 2025-04-24 11:42 | ECG_ITS ---
Test Date: 2025-04-24 11:45:46 Measurements Intervals [place] Rate: 68 P: 38 [place]: 160 QRS: -64 QRSD: 146 T: 78 QT: 428 QTc: 455 Interpretive Statements SINUS RHYTHM RIGHT BUNDLE BRANCH BLOCK WITH REPOLARIZATION CHANGES; CAN NOT RULE OUT ISCHEMIA Compared to ECG 04/24/2025 11:35:04 NO SIGNIFICANT CHANGES Electronically Signed On 04-24-2025 13:43:04 POMPOM MAKER by Akira Aggarwal M.D.
[2025-04-24 11:45] VITALS: BP 108/70; PULSE 68; RESP 27; O2SAT 100
[2025-04-24 11:55] VITALS: O2SAT 100
--- OUTSIDE RECORDS SUMMARY | 2025-04-24 12:04 | XMS_ITS ---
Author Organization Unknown Address [address], [place] [id number] Phone Care Team Providers Care Courtesy Car Driver Name Role Phone CAMILLA HUTTON Attending Unavailable Immunization Immunization Date Status Additional Notes Code Code System COVID-19, mRNA, LNP-S, PF, 3 0 mcg/0.3 mL dose 05/04/2021 Completed 208 CVX COVID-19, mRNA, LNP-S, PF, 1 00 mcg/0.5mL dose or 50 mcg/0.25mL dose 08/15/2020 Completed 207 CVX COVID-19, mRNA, LNP-S, PF, 1 00 mcg/0.5mL dose or 50 mcg/0.25mL dose 07/18/2020 Completed 207 CVX Influenza, adjuvanted, quadrivalent, PF 05/04/2021 Completed 205 CVX Influenza, high-dose, quadrivalent, PF 02/25/2020 Completed 197 CVX zoster recombinant 08/25/2018 Completed 187 CVX Influenza, high-dose, trivalent, PF 02/26/2019 Completed 135 CVX Influenza, high-dose, trivalent, PF 04/10/2018 Completed 135 CVX Influenza, high-dose, trivalent, PF 02/22/2017 Completed 135 CVX Pneumococcal conjugate PCV 13 06/26/2020 Completed 133 CVX Tdap 06/26/2020 Completed 115 CVX Results BASIC METABOLIC PANEL (BMP) - Collect Date/Time: 03/12/2022 10:00 [facility] ID: [id number] [address], [place], [id number] LOINC: 26318-8 Test Value Unit Reference Range Code Code System Flag IS PATIENT FASTING? GLUCOSE 276 mg/dl L=70 H=100 2345-7 LOINC H BUN 23 mg/dl L=8 H=23 CREATININE 1.41 mg/dl L=0.60 H=1.10 H AGE 71 yrs eGFR 49 SODIUM 138 mmol/L L=133 H=145 POTASSIUM 4.7 mmol/L L=3.3 H=5.1 CHLORIDE 98 mmol/L L=96 H=108 CO2 29.5 mmol/L L=20.0 H=33.0 ANION GAP 15 mmol/L L=8 H=16 CALCIUM 8.7 mg/dl L=8.4 H=10.2 VANCOMYCIN TROUGH - Collect Date/Time: 03/12/2022 10:00 [facility] ID: [id number] [address], [place], [id number] LOINC: 89398-1 Test Value Unit Reference Range Code Code System Flag VANCO TROUGH 35 ug/ml L=10 H=15 HH CALLED TO: JED Spence/RN CALLED BY: KONG TIME/DATE: 184903/12/22 READBACK : YES W/PRV RESULT? N/A Social History Type Status Start Date End Date Code Code Syst em Smoking History Unknown if ever smoked [address] Sex Male Hospital Discharge Instructions Should you have any questions prior to discharge, please contact a member of your healthcare team. If you have left the hospital and have any questions, please contact your primary care physician. Reason For Referral No Data Found Plan of Treatment No Data Found Encounters Encounter Diagnosis Start Date Code Code Sys tem Infection AND/OR inflammator y reaction due to internal prosthetic device, implant AND/OR graft 03/12/2022 [id number] SNOMED-CT Personal Care Team Section
--- OUTSIDE RECORDS SUMMARY | 2025-04-24 12:04 | XMS_ITS | Clinical Summary ---
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 Hypothyroidism 02/04/2014 Type 2 diabetes mellitus without complication Peripheral vascular disease 02/04/2014 Overview (08/12/2018): Converted unresolved ICD9, potential mismatch. Insomnia 02/04/2014 Immunizations Immunization Administration Dates Next Due Influenza Split High Dose Pr eservative Free IM 04/10/2018 Influenza, Unspecified 03/30/2016,02/23/2015 Influenza, split virus, trivalent, PF ,02/19/2011,05/15/2010,03/16 Pneumococcal Polysaccharide 03/16/2007 Zoster Recombinant 08/25/2018,08/12/2017 Social [...] AM CDT Pulse 64 04/11/2018 12:01 AM SEISMOMETER OPERATOR Temperature - - Respiratory Rate - - Oxygen Saturation - - Inhaled Oxygen Concentration - - Weight 112 kg (246 lb) 08/15/2019 11:12 AM CDT Height 177.8 cm (5' 10) 04/11/2018 12:01 AM SEISMOMETER OPERATOR Body Mass Index 35.3 04/11/2018 12:01 AM SEISMOMETER OPERATOR Plan of Treatment Health Maintenance Due Date Last Done Comments Pneumococcal PPSV23/PCV13 65 + Years / Low and Medium Risk (2 of 4 - PCV) 03/16/2008 03/16/2007 Influenza Vaccine (#1) 2025 8, 04/05/2016, 03/30/2016, Additional history exists Insurance [employer] Care Teams Speeder Machine Operator Relationship Specialty Start Date End Date Collin John MD PCP - General Endocrinology 08/15/19
--- OUTSIDE RECORDS SUMMARY | 2025-04-24 12:04 | XMS_ITS ---
Author Organization Unknown Address [address] [place], [place] [phone] Phone Care Team Providers Care Metal Mixer Name Role Phone CAMILLA HUTTON Attending Unavailable [...] CVX Tdap 06/26/2020 Completed 115 CVX Results COMPREHENSIVE METABOLIC PANE L - Collect Date/Time: 03/25/2022 16:09 [facility] ID: [id number] [address] [place], [place], [id number] LOINC: 94643-6 Test Value Unit Reference Range Code Code System Flag IS PATIENT FASTING? GLUCOSE 133 mg/dl L=70 H=100 2345-7 LOINC H BUN 24 mg/dl L=8 H=23 H CREATININE 1.36 mg/dl L=0.60 H=1.10 H AGE 71 yrs eGFR 51 SODIUM 141 mmol/L L=133 H=145 POTASSIUM 4.3 mmol/L L=3.3 H=5.1 CHLORIDE 100 mmol/L L=96 H=108 ALK PHOS 175 U/L L=39 H=117 H SGOT 26 U/L L=5 H=37 TOTAL BILI 0.2 mg/dl L=0.1 H=1.0 TOTAL PROTEIN 6.1 g/dl L=6.0 H=8.0 ALBUMIN 3.5 g/dl L=3.4 H=4.8 CALCIUM 8.9 mg/dl L=8.4 H=10.2 CO2 30.8 mmol/L L=20.0 H=33.0 ANION GAP 15 mmol/L L=8 H=16 SGPT 24 U/L L=5 H=40 PT (PROTIME) - Collect Date/ Time: 03/25/2022 16:09 [facility] ID: [id number] [address] [place], [place], [id number] LOINC: 6301-6 Test Value Unit Reference Range Code Code System Flag INR 2.6 L=1.0 H=3.0 VANCOMYCIN TROUGH - Collect Date/Time: 03/25/2022 16:09 [facility] ID: [id number] [address] [place], [place], [id number] LOINC: 40155-5 Test Value Unit Reference Range Code Code System Flag VANCO TROUGH 9 ug/ml L=10 H=15 L Social History Type Status Start Date End Date Code Code Syst em Smoking History Unknown if ever smoked [id number] Sex Male Hospital Discharge Instructions [...] to internal prosthetic device, implant AND/OR graft 03/25/2022 [id number] SNOMED-CT Personal Care Team Section
--- OUTSIDE RECORDS SUMMARY | 2025-04-24 12:04 | XMS_ITS | Clinical Summary ---
Author Organization [facility] Address [address] [place] [address] Care Team Providers Care Claim Administrator Name Role Phone Unavailable Primary Care Provider Unavailabl e Source Comments [facility],non-owned Affiliates and Associated Physician Practices is amultiple site organization consisting of ambulatory clinics and hospital sitesin [place] and [place]. This disclosure is being madepursuant to the Care Everywhere program and may not contain all information available regarding this patient. 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
[2025-04-24 12:07] VITALS: BP 132/76; PULSE 69; RESP 14; TEMP 36.4; O2SAT 100
[2025-04-24 12:08] LABS: Hematocrit 37.5 % (42.0-52.0); Hemoglobin 12.5 g/dL (14.0-18.0); Immature Granulocyte Percent A 1.2 % (0-0.5); Lymphocytes Absolute Auto 0.57 K/mm3 (0.9-3.2); Mean Corpuscular HGB Conc 33.3 g/dl (32-36); Mean Corpuscular Hemoglobin 31.3 pg (26-34); Mean Corpuscular Volume 94.0 fl (80-100); Nucleated Red Blood Cells Absolute Auto 0.000 K/mm3 (0.0-0.012); Nucleated Red Blood Cells Perc 0.0 % (0.0-0.2); Platelet Count Result 150 k/mm3 (150-375); Red Blood Count 3.99 M/mm3 (4.6-6.20); White Blood Count 9.9 K/mm3 (4.5-10.0)
[2025-04-24 12:19] LABS: INR 1.7; Prothrombin Time 19.3 Seconds (11.1-14.7)
[2025-04-24 12:20] LABS: Partial Thromboplastin Time 37.6 Seconds (22.3-36.8)
[2025-04-24 13:24] LABS: Alanine Aminotransferase 61 U/L (6-50); Albumin Level 4.0 g/dL (3.5-5.1); Alkaline Phosphatase 110 U/L (38-126); Anion Gap 8 mmol/L (4-12); Aspartate Amino Transferase 62 U/L (17-59); Bilirubin,Total 1.1 mg/dL (0.2-1.3); Blood Urea Nitrogen 32 mg/dL (9-20); Calcium 8.5 mg/dL (8.4-10.2); Carbon Dioxide 26 mmol/L (22-30); Chloride 101 mmol/L (98-107); Estimated CRCL calculation 42 ml/min; Estimated Glomerular Filt Rate 43; Glucose 233 mg/dL (65-110); Potassium 4.4 mmol/L (3.4-5.0); Sodium 135 mmol/L (137-145); Total Protein 7.1 g/dL (6.3-8.2)
[2025-04-24 13:27] LABS: Lipase < 10 U/L (23-300)
[2025-04-24 13:34] LABS: Troponin I 0.034 ng/mL (0.000-0.034)
--- NOTE | 2025-04-24 14:24 | ED.GENADULT ---
HPI - General Adult General Chief complaint: Shortness of Breath/Dyspnea Stated complaint: sob, abnormal cxr yesterday Time Seen by Provider: 04/24/25 11:43 History of Present Illness HPI narrative: This is a 74-year-old male with history coronary artery disease, LVAD presenting for chest pain and shortness of breath. Patient says for last 3 days he has been having dull pain on the left side of his chest. It is nonradiating, worse with exertion. He also has subjective dyspnea. He had an x-ray obtained by his primary care physician yesterday which showed mild CHF which is expected concerned he has an LVAD. He denies fevers, abdominal pain or urinary symptoms. He has not received any alert from his LVAD. Related Data Home Medications ?Medication ?Instructions ?Recorded ?Confirmed ?Last Taken ?Type acetaminophen 650 mg tablet 650 mg PO Q6H PRN Pain 06/11/21 06/11/21 Unknown History albuterol sulfate 90 mcg/actuation 2 puff inhalation QID 06/11/21 06/11/21 Unknown History aerosol inhaler allopurinol 100 mg tablet 100 mg PO DAILY 06/11/21 06/11/21 Unknown History amlodipine 10 mg tablet 10 mg PO DAILY 06/11/21 06/11/21 Unknown History aspirin 325 mg tablet 325 mg PO DAILY 06/11/21 06/11/21 Unknown History carvedilol 25 mg tablet 25 mg PO BID 06/11/21 06/11/21 Unknown History ergocalciferol (vitamin D2) 50,000 1 unit PO WEEKLY 06/11/21 06/11/21 Unknown History unit tablet ferrous sulfate 325 mg (65 mg 325 mg PO DAILY 06/11/21 06/11/21 Unknown History iron) tablet hydralazine 50 mg tablet 50 mg PO TID 06/11/21 06/11/21 Unknown History insulin aspart U-100 100 unit/mL 1 sliding scale dose subcut 06/11/21 06/11/21 Unknown History subcutaneous solution (Novolog USEASDIRECTD U-100 Insulin aspart) insulin glargine 100 unit/mL (3 30 unit subcut HS 06/11/21 06/11/21 Unknown History mL) subcutaneous pen (Basaglar KwikPen U-100 Insulin) isosorbide mononitrate 60 mg 90 mg PO DAILY 06/11/21 06/11/21 Unknown History tablet,extended release 24 hr levothyroxine 75 mcg tablet 75 mcg PO DAILY 06/11/21 06/11/21 Unknown History gvfdhm-[id number]-dpthuai (porcine) 3 tablet PO TID 06/11/21 06/11/21 Unknown History 8,000-30,000-30,000 unit tablet losartan 50 mg tablet 100 mg PO DAILY 06/11/21 06/11/21 Unknown History magnesium oxide 800 mg PO BID 06/11/21 06/11/21 Unknown History multivit with minerals-iron 18 1 tablet PO DAILY 06/11/21 06/11/21 Unknown History mg-folic ac 400 mcg-vit K 25 mcg tablet (Adults Multivitamin) nitroglycerin 0.4 mg sublingual 0.4 mg sublingual Q5-15M PRN Chest 06/11/21 06/11/21 Unknown History tablet Pain pantoprazole 40 mg tablet,delayed 40 mg PO QAM 06/11/21 06/11/21 Unknown History release (Protonix) rosuvastatin 20 mg tablet (Crestor) 20 mg PO DAILY 06/11/21 06/11/21 Unknown History tamsulosin 0.4 mg capsule (Flomax) 0.4 mg PO DAILY 06/11/21 06/11/21 Unknown History torsemide 20 mg tablet 20 mg PO QAM 06/11/21 06/11/21 Unknown History trazodone 50 mg tablet 50 mg PO HS PRN Sleep 06/11/21 06/11/21 Unknown History ustekinumab 45 mg/0.5 mL 45 mg subcut ONCE 06/11/21 06/11/21 Unknown History subcutaneous solution (Stelara) warfarin 4 mg tablet 5 mg PO DAILY 06/11/21 06/11/21 Unknown History Allergies Allergy/AdvReac Type Severity Reaction Status Date / Time Sulfa (Sulfonamide Allergy Mild Verified 06/11/21 13:42 Antibiotics) levofloxacin Allergy Unknown Verified 06/11/21 13:42 Penicillins Allergy Unknown Verified 06/11/21 13:42 Quinolones Allergy Unknown Verified 06/11/21 13:42 Course Vital Signs Vital signs: Vital Signs Temperature 97.5 F L 04/24/25 11:30 Pulse Rate 68 04/24/25 11:30 Respiratory Rate 23 H 04/24/25 11:30 Blood Pressure 114/97 H 04/24/25 11:30 Pulse Oximetry 98 04/24/25 11:30 Oxygen Delivery Room Air 04/24/25 11:30 Temperature 97.6 F 04/24/25 12:07 Pulse Rate 69 04/24/25 16:21 Respiratory Rate 16 04/24/25 16:21 Blood Pressure 101/52 L 04/24/25 16:21 Pulse Oximetry 98 04/24/25 16:21 Oxygen Delivery Room Air 04/24/25 11:55 Medical Decision Making MDM Narrative Medical decision making narrative: -Course: 74-year-old male with history of coronary disease an LVAD presenting for chest pain. Patient has been having chest pain/ difficulty breathing for the last 2 days. EKG with 1 mm elevations in 3 and AVF although these are chronic as compared to multiple previous EKGs. Initial troponin was 0.034. Patient given oxygen and morphine for chest pain. Chest x-ray shows pulmonary edema which is expected given this patient's clinical history. He is not in any respiratory distress requiring supplemental oxygen. Case was discussed with Dr. Arias who is his engineer rf deployment at [facility]. Patient will be transferred to [facility] under Dr. Arias for further cardiac evaluation. -DDX includes but is not limited to: ACS, CHF pneumonia, Vital Signs Vital Signs: Vital Signs Temperature 97.5 F L 04/24/25 11:30 Pulse Rate 68 04/24/25 11:30 Respiratory Rate 23 H 04/24/25 11:30 Blood Pressure 114/97 H 04/24/25 11:30 Pulse Oximetry 98 04/24/25 11:30 Oxygen Delivery Room Air 04/24/25 11:30 Temperature 97.6 F 04/24/25 12:07 Pulse Rate 69 04/24/25 16:21 Respiratory Rate 16 04/24/25 16:21 Blood Pressure 101/52 L 04/24/25 16:21 Pulse Oximetry 98 04/24/25 16:21 Oxygen Delivery Room Air 04/24/25 11:55 Lab Data 04/24/25 11:45 04/24/25 12:25 Labs: Lab Results 04/24/25 04/24/25 04/24/25 Range/Units 11:45 12:25 15:33 WBC 9.9 (4.5-10.0) K/mm3 RBC 3.99 L (4.6-6.20) M/mm3 Hgb 12.5 L (14.0-18.0) g/dL Hct 37.5 L (42.0-52.0) % MCV 94.0 (80-100) fl MCH 31.3 (26-34) pg MCHC 33.3 (32-36) g/dl RDW 14.1 (11.5-14.5) % Plt Count 150 (150-375) k/mm3 MPV 10.5 H (7.4-10.4) fl Immature Gran % (Auto) 1.2 H (0-0.5) % Neut % (Auto) 75.4 H (45.5-73.1) % Lymph % (Auto) 5.8 L (18.3-44.2) % Jerome % (Auto) 10.1 H (2.6-8.5) % Eos % (Auto) 6.7 H (0-4.4) % Baso % (Auto) 0.8 (0.2-1.2) % Lymph # (Auto) 0.57 L (0.9-3.2) K/mm3 Jerome # (Auto) 1.0 H (0.1-0.6) K/mm3 Eos # (Auto) 0.7 H (0-0.3) K/mm3 Baso # (Auto) 0.1 (0.0-0.1) K/mm3 Abs Immat Gran (auto) 0.12 H (0.00-0.031) K/mm3 Absolute Neuts (auto) 7.5 H (1.3-6.7) K/mm3 Absolute Nucleated RBC 0.000 (0.0-0.012) K/mm3 Nucleated RBC % 0.0 (0.0-0.2) % PT 19.3 H (11.1-14.7) Seconds INR 1.7 APTT 37.6 H (22.3-36.8) Seconds Sodium 135 L (137-145) mmol/L Potassium 4.4 (3.4-5.0) mmol/L Chloride 101 (98-107) mmol/L Carbon Dioxide 26 (22-30) mmol/L Anion Gap 8 (4-12) mmol/L BUN 32 H D (9-20) mg/dL Creatinine 1.59 H (0.7-1.3) mg/dL Estim Creat Clear Calc 42 ml/min Estimated GFR 43 L (59 - ) Glucose 233 H (65-110) mg/dL Calcium 8.5 (8.4-10.2) mg/dL Total Bilirubin 1.1 (0.2-1.3) mg/dL AST 62 H (17-59) U/L ALT 61 H (6-50) U/L Alkaline Phosphatase 110 (38-126) U/L Troponin I 0.034 0.030 (0.000-0.034) ng/mL NT-Pro-B Natriuret Pep 2860 H (19.9-100) pg/mL Total Protein 7.1 (6.3-8.2) g/dL Albumin 4.0 (3.5-5.1) g/dL Lipase < 10 L (23-300) U/L Discharge Plan Discharge Clinical Impression: Chest pain Patient Disposition: Acute Care Hospital Condition: Stable Patient Language: [place] Prescriptions: No Action losartan 50 mg Tablet 100 mg PO DAILY carvedilol 25 mg Tablet 25 mg PO BID aspirin 325 mg Tablet 325 mg PO DAILY allopurinol 100 mg Tablet 100 mg PO DAILY acetaminophen 650 mg Tablet 650 mg PO Q6H PRN (Reason: Pain) ergocalciferol (vitamin D2) 50,000 unit Tablet 1 unit PO WEEKLY levothyroxine 75 mcg Tablet 75 mcg PO DAILY isosorbide mononitrate 60 mg Tablet Extended Release 24 Hr 90 mg PO DAILY amlodipine 10 mg Tablet 10 mg PO DAILY insulin aspart U-100 [Novolog U-100 Insulin aspart] 100 unit/mL Solution 1 sliding scale dose SUBCUT USEASDIRECTD ferrous sulfate 325 mg (65 mg iron) Tablet 325 mg PO DAILY hydralazine 50 mg Tablet 50 mg PO TID albuterol sulfate 90 mcg/actuation Hfa Aerosol Inhaler 2 puff INHALATION QID Basaglar KwikPen U-100 Insulin 100 unit/mL (3 mL) Insulin Pen 30 unit SUBCUT HS Pancrelipase 8,000-30,000- 30,000 unit Tablet 3 tablet PO TID nitroglycerin 0.4 mg Tablet, Sublingual 0.4 mg SUBLINGUAL Q5-15M PRN (Reason: Chest Pain) magnesium oxide 400 mg magnesium Capsule 800 mg PO BID Adults Multivitamin 18 mg iron-400 mcg-25 mcg Tablet 1 tablet PO DAILY torsemide [Demadex] 20 mg Tablet 20 mg PO QAM trazodone [Desyrel] 50 mg Tablet 50 mg PO HS PRN (Reason: Sleep) warfarin [Coumadin] 4 mg Tablet 5 mg PO DAILY tamsulosin [Flomax] 0.4 mg Capsule 0.4 mg PO DAILY pantoprazole [Protonix] 40 mg Tablet,Delayed Release (Dr/Ec) 40 mg PO QAM rosuvastatin [Crestor] 20 mg Tablet 20 mg PO DAILY Stelara 45 mg/0.5 mL Solution 45 mg SUBCUT ONCE Rx Instructions: every three months Follow-up/Referrals: Gayle,ODELL Rivera [Primary Care Provider, Unknown]
[2025-04-24 14:55] LABS: NT Pro B Type Natriuretic Pept 2860 pg/mL (19.9-100)
--- NOTE | 2025-04-24 15:16 | ECG_ITS ---
Test Date: 2025-04-24 15:30:06 Measurements Intervals [place] Rate: 68 P: 0 HI: 0 QRS: -86 QRSD: 151 T: 136 QT: 460 QTc: 490 Interpretive Statements SINUS RHYTHM PREMATURE VENTRICULAR COMPLEXES LEFT AXIS DEVIATION [QRS AXIS < -30] RIGHT BUNDLE BRANCH BLOCK [120+ ms QRS DURATION, UPRIGHT V1, 40+ ms S IN I/aVL/V4/V5/V6] ANTERIOR MYOCARDIAL INFARCTION , OF INDETERMINATE AGE [40+ ms Q WAVE AND/OR ST/T ABNORMALITY IN V3/V4] MODERATE T-WAVE ABNORMALITY, CONSIDER LATERAL ISCHEMIA [-0.1+ mV T-WAVE IN I/aVL/V5/V6] ARTIFACT GREATLY LIMITS INTERPRETATION ABNORMAL ECG Electronically Signed On 04-24-2025 17:42:04 STUDENT FINANCE ADVISOR by Miguel Nieves M.D.
[2025-04-24 16:06] LABS: Troponin I 0.030 ng/mL (0.000-0.034)
[2025-04-24 16:21] VITALS: BP 101/52; PULSE 69; RESP 16; O2SAT 98
[2025-04-24] MEDS: MORPHINE SULFATE (*CRX) 4 MG/ML INJ IV PUSH (16:21)
[2025-04-24 18:45] VITALS: BP 128/98; PULSE 66; RESP 16; O2SAT 100
== END 2025-04-24 19:32 | disposition short-term general hospital (02) ==
PROVIDERS: Emergency Provider Emergency Medicine; PCP Nurse Practitioner
DX: R07.9 Chest pain, unspecified (principal); I25.10 Atherosclerotic heart disease of native coronary artery without angina pectoris; I50.9 Heart failure, unspecified; Z95.811 Presence of heart assist device; I45.10 Unspecified right bundle-branch block; R94.31 Abnormal electrocardiogram [ECG] [EKG]; Z79.01 Long term (current) use of anticoagulants; Z79.899 Other long term (current) drug therapy; Z79.82 Long term (current) use of aspirin
CPT/HCPCS: 36415; 71046; 80053; 83690; 83880; 84484; 85025; 85610; 85730; 93005; 96374; 99285; J2270